=== PATIENT | male | born 1955 | race Caucasian/White ===

== ENCOUNTER 2018-07-30 08:28 | Outpatient (CLI) | payer BC, SELFPAY ==
[2018-07-30 08:59] LABS: Abs Immature Grans 0.01 k/cumm (0.0-0.09); Absolute Basophil Count 0.06 k/cumm (0.0-0.2); Absolute Eosinophil Count 0.26 k/cumm (0.0-0.7); Absolute Lymphocyte Count 1.47 k/cumm (1.2-3.4); Absolute Monocyte Count 0.54 k/cumm (0.11-0.7); Absolute Neutrophil Count 2.59 k/cumm (1.2-6.7); Basophils % 1.2; Eosinophils % 5.3; HCT 43.9 % (40.0-50.0); HGB 15.6 g/dL (13.5-17.5); Immature Grans % 0.2; Lymphocytes % 29.8; Mean Corp. HGB Concentration 35.5 g/dL (32.0-36.0); Mean Corpuscular Hemoglobin 31.3 pg (27.0-33.0); Mean Platelet Volume 9.3 fL (8.0-11.0); Neutrophils % 52.5; Platelet Count 171 x1000/uL (130-400); RBC 4.99 m/cumm (4.50-6.00); RBC Distribution Width 13.3 % (11.8-14.1); White Blood Cell Count 4.93 k/cumm (4.4-10.8)
[2018-07-30 10:24] LABS: ALT 64 U/L (12-78); AST 45 U/L (15-37); Alkaline Phosphatase 52 U/L (46-116); Anion Gap 7.9 mmol/L (3-11); BUN 17 mg/dL (7-18); Bilirubin, Total 0.6 mg/dL (0.2-1.0); CO2 29.1 mmol/L (21.0-32.0); CREATININE 0.94 mg/dL (0.70-1.30); Calcium 9.1 mg/dL (8.5-10.1); Chloride 104 mmol/L (98-107); Glucose 116 mg/dL (70-100); Potassium 4.6 mmol/L (3.5-5.1); Sodium 141 mmol/L (136-145); TSH 1.93 uIU/mL (0.358-3.74); Total Protein 7.4 g/dL (6.4-8.2)
== END 2018-07-30 08:48 ==
PROVIDERS: PCP Family Medicine; Visit Provider Chiropractor
DX: R53.83 Other fatigue (principal); R53.1 Weakness; M99.03 Segmental and somatic dysfunction of lumbar region
CPT/HCPCS: 36415; 80053; 84443; 85025

== ENCOUNTER 2018-12-28 10:14 | Outpatient (CLI) | payer BC, SELFPAY ==
[2018-12-28 12:40] LABS: Cholesterol 247 mg/dL (50-200); Glucose 110 mg/dL (70-100); HDL Cholesterol 42 mg/dL (40-60); LDL CHOLESTEROL 173 mg/dL (<100); Triglyceride 144 mg/dL (30-150)
[2018-12-29 15:04] LABS: PSA, Screening 17.2 ng/ml (0-4.5)
== END 2018-12-28 10:34 ==
PROVIDERS: PCP Family Medicine; Visit Provider Family Medicine
DX: Z00.00 Encounter for general adult medical examination without abnormal findings (principal); E74.39 Other disorders of intestinal carbohydrate absorption; Z12.5 Encounter for screening for malignant neoplasm of prostate; Z13.220 Encounter for screening for lipoid disorders
CPT/HCPCS: 36415; 80061; 82947; 83721; 84153

== ENCOUNTER 2019-05-06 03:11 | Outpatient (RCR) | payer BC, SELFPAY ==
[2019-05-02] VITALS (7 sets, daily range): BP systolic 123–150; BP diastolic 78–92; PULSE 54–65; RESP 16–18; TEMP 36.4–36.7; O2SAT 96–98
[2019-05-02] MEDS: diphenhydrAMINE 25 MG CAP PO (07:03)
[2019-05-02] MEDS: IMMUNE GLOBULIN 5 GM/50 ML BTL 1 GM IVPB (07:37)
[2019-05-02] MEDS: IMMUNE GLOBULIN 40 GM/400 ML BTL IVPB (07:38)
[2019-05-02] MEDS: Normal Saline Flush 10 ML SYR IVP (09:25)
[2019-05-03] MEDS: diphenhydrAMINE 25 MG CAP PO (07:22)
[2019-05-03] MEDS: IMMUNE GLOBULIN 5 GM/50 ML BTL 1 GM IVPB (07:23)
[2019-05-03] MEDS: IMMUNE GLOBULIN 40 GM/400 ML BTL IVPB (07:24)
[2019-05-03 07:30] VITALS: BP 132/83; PULSE 68; RESP 18; TEMP 36.6; O2SAT 95
[2019-05-03 07:45] VITALS: BP 134/85; PULSE 65; RESP 18; TEMP 36.3; O2SAT 98
[2019-05-03 08:05] VITALS: BP 137/88; PULSE 63; RESP 18; TEMP 36.1; O2SAT 98
[2019-05-03 08:42] VITALS: BP 137/83; PULSE 1; RESP 18; TEMP 36.4; O2SAT 98
[2019-05-03 09:21] VITALS: BP 135/65; PULSE 65; RESP 19; TEMP 36.5; O2SAT 99
[2019-05-03 09:23] VITALS: BP 144/92; PULSE 61; TEMP 36.3; O2SAT 98
[2019-05-03] MEDS: Normal Saline Flush 10 ML SYR IVP (09:27)
[2019-05-04 06:59] VITALS: BP 137/66; PULSE 74; RESP 18; TEMP 36.4; O2SAT 98
[2019-05-04] MEDS: diphenhydrAMINE 25 MG CAP PO (07:05)
[2019-05-04] MEDS: IMMUNE GLOBULIN 40 GM/400 ML BTL IVPB (07:14)
[2019-05-04] MEDS: IMMUNE GLOBULIN 5 GM/50 ML BTL 1 GM IVPB (07:14)
[2019-05-04] MEDS: Normal Saline Flush 10 ML SYR IVP (07:14)
[2019-05-04 07:30] VITALS: BP 126/70; PULSE 66; RESP 18; TEMP 36.6; O2SAT 96
[2019-05-04 07:50] VITALS: BP 129/81; PULSE 61; RESP 18; TEMP 36.3; O2SAT 98
[2019-05-04 08:00] VITALS: BP 124/78; PULSE 56; RESP 18; TEMP 36.5; O2SAT 98
[2019-05-04 08:42] VITALS: BP 134/84; PULSE 58; RESP 18; TEMP 36.5; O2SAT 98
[2019-05-04 09:08] VITALS: BP 143/88; PULSE 60; RESP 18; TEMP 36.4; O2SAT 98
[2019-05-05] MEDS: diphenhydrAMINE 25 MG CAP PO (07:01)
[2019-05-05 07:04] VITALS: BP 134/88; PULSE 84; RESP 18; TEMP 36.4; O2SAT 96
[2019-05-05] MEDS: IMMUNE GLOBULIN 5 GM/50 ML BTL 1 GM IVPB (07:10)
[2019-05-05] MEDS: IMMUNE GLOBULIN 40 GM/400 ML BTL IVPB (07:10)
[2019-05-05 07:18] VITALS: BP 134/85; PULSE 75; RESP 18; TEMP 36.8; O2SAT 95
[2019-05-05 07:35] VITALS: BP 125/74; PULSE 68; RESP 18; TEMP 36.5; O2SAT 95
[2019-05-05 07:55] VITALS: BP 135/82; PULSE 68; RESP 18; TEMP 36.8; O2SAT 98
[2019-05-05 08:27] VITALS: BP 131/76; PULSE 66; RESP 18; TEMP 36.2; O2SAT 98
[2019-05-05] MEDS: Normal Saline Flush 10 ML SYR IVP (09:04)
[2019-05-06 07:06] VITALS: BP 139/97; PULSE 82; RESP 18; TEMP 36.7; O2SAT 95
[2019-05-06] MEDS: diphenhydrAMINE 25 MG CAP PO (07:09)
[2019-05-06] MEDS: Normal Saline Flush 10 ML SYR IVP (07:09)
[2019-05-06] MEDS: IMMUNE GLOBULIN 5 GM/50 ML BTL 1 GM IVPB (07:22)
[2019-05-06] MEDS: IMMUNE GLOBULIN 40 GM/400 ML BTL IVPB (07:23)
[2019-05-06 07:27] VITALS: BP 145/87; PULSE 74; RESP 18; TEMP 36.3; O2SAT 96
[2019-05-06 07:42] VITALS: BP 150/80; PULSE 74; RESP 18; TEMP 36.7; O2SAT 96
[2019-05-06 07:55] VITALS: BP 146/87; PULSE 65; RESP 17; TEMP 36.5; O2SAT 98
[2019-05-06 08:35] VITALS: BP 148/88; PULSE 66; RESP 17; TEMP 36.5; O2SAT 98
[2019-05-06 09:20] VITALS: BP 155/92; PULSE 68; RESP 18; TEMP 36.2
== END 2019-05-14 23:59 | disposition home or self-care (01) ==
LOC: INF 03:11
PROVIDERS: PCP Family Medicine; Visit Provider Internal Medicine
DX: G72.49 Other inflammatory and immune myopathies, not elsewhere classified (principal)
CPT/HCPCS: 96365; 96366; J1459

== ENCOUNTER 2019-06-07 01:52 | Outpatient (RCR) | payer BC, SELFPAY ==
[2019-06-06] VITALS (7 sets, daily range): BP systolic 121–130; BP diastolic 78–87; PULSE 66–81; RESP 16–19; TEMP 36.1–36.5; O2SAT 96–99
[2019-06-06] MEDS: diphenhydrAMINE 25 MG CAP PO (07:09)
[2019-06-06] MEDS: methylPREDNISolone SUCC 125 MG VIAL 100 MG IVP (07:10)
[2019-06-06] MEDS: Acetaminophen 325 MG TAB 650 MG PO (07:10)
[2019-06-06] MEDS: IMMUNE GLOBULIN 5 GM/50 ML BTL 1 GM IVPB (07:32)
[2019-06-06] MEDS: IMMUNE GLOBULIN 40 GM/400 ML BTL IVPB (07:35)
[2019-06-06] MEDS: Normal Saline Flush 10 ML SYR IVP (07:43)
[2019-06-07] MEDS: methylPREDNISolone SUCC 125 MG VIAL 100 MG IVP (07:15)
[2019-06-07] MEDS: diphenhydrAMINE 25 MG CAP PO (07:16)
[2019-06-07] MEDS: Acetaminophen 325 MG TAB 650 MG PO (07:16)
[2019-06-07] MEDS: IMMUNE GLOBULIN 40 GM/400 ML BTL IVPB (07:18)
[2019-06-07] MEDS: IMMUNE GLOBULIN 5 GM/50 ML BTL 1 GM IVPB (07:18)
[2019-06-07 07:23] VITALS: BP 126/79; PULSE 78; RESP 18; TEMP 36.6; O2SAT 97
[2019-06-07 07:40] VITALS: BP 131/81; PULSE 83; RESP 16; TEMP 36.5; O2SAT 95
[2019-06-07 08:08] VITALS: BP 133/80; PULSE 81; RESP 19; TEMP 36.2; O2SAT 96
[2019-06-07 08:39] VITALS: BP 138/83; PULSE 79; RESP 18; TEMP 36.6; O2SAT 97
[2019-06-07 09:09] VITALS: BP 132/83; PULSE 75; RESP 19; TEMP 36.6; O2SAT 97
== END 2019-06-13 23:59 | disposition home or self-care (01) ==
LOC: INF 01:52
PROVIDERS: PCP Family Medicine; Visit Provider Internal Medicine
DX: G72.49 Other inflammatory and immune myopathies, not elsewhere classified (principal)
CPT/HCPCS: 96365; 96366; 96374; J1459; J2930

== ENCOUNTER 2019-08-31 09:28 | Outpatient (CLI) | payer BC, SELFPAY ==
--- NOTE | 2019-08-31 09:34 | DI.US_ITS ---
EXAM: US LOWER EXTREMITY VENOUS LT CLINICAL HISTORY: left leg pain, M79.662, left calf pain, ? DVT TECHNIQUE: Ultrasound performed using standard protocol. COMPARISON: LEFT EXTREMITY ULTRASOUND from 09/09/2011 FINDINGS: There is echogenic, partially occluding thrombus in the proximal femoral vein through the popliteal veins extending into the deep calf veins. The findings are consistent with old or subacute thrombus. Palpable abnormality in the medial calf corresponds to old-appearing thrombus within a superficial vein. IMPRESSION: Deep venous thrombosis and superficial venous thrombosis which is partially occluding and appears sub acute or old.
== END 2019-08-31 09:48 ==
PROVIDERS: PCP Family Medicine; Visit Provider Family Medicine
DX: M79.662 Pain in left lower leg (principal); I82.512 Chronic embolism and thrombosis of left femoral vein; I82.532 Chronic embolism and thrombosis of left popliteal vein; I82.812 Embolism and thrombosis of superficial veins of left lower extremity
CPT/HCPCS: 93971

== ENCOUNTER 2019-09-01 09:31 | Outpatient (CLI) | payer BC, SELFPAY ==
[2019-09-01 13:38] LABS: Anion Gap 10.5 mmol/L (3-11); BUN 22 mg/dL (7-18); CO2 26.5 mmol/L (21.0-32.0); CREATININE 0.89 mg/dL (0.70-1.30); Calcium 9.1 mg/dL (8.5-10.1); Chloride 102 mmol/L (98-107); Glucose 202 mg/dL (74-106); Potassium 4.6 mmol/L (3.5-5.1); Sodium 139 mmol/L (136-145)
[2019-09-02 08:49] LABS: ALT 53 U/L (16-63); AST 35 U/L (15-37)
== END 2019-09-01 09:51 ==
PROVIDERS: PCP Family Medicine; Visit Provider Family Medicine
DX: M79.662 Pain in left lower leg (principal); G72.89 Other specified myopathies
CPT/HCPCS: 36415; 80048; 84450; 84460

== ENCOUNTER 2019-09-05 00:56 | Outpatient (CLI) | payer BC, SELFPAY ==
--- NOTE | 2019-09-05 14:05 | DI.US_ITS ---
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 EF is 55-60% The left atrium is mildly dilated MIldly thickened mitral leaflets without mitral regurgitation Trace tricuspid regurgitation Mildly dilated ascending aorta and aortic root Wall motion Left Ventricle The left ventricle is top normal size. The left ventricular systolic function is normal. The left ilene tricular ejection fraction is within the normal range. There is top normal left ventricular wall thic kness. Regional wall motion is normal. The left ventricular diastolic function is normal. Left ventri cular filling pattern is normal for age. LVEF is 55-60%. Right Ventricle The right ventricle is normal size. The right ventricular systolic function is normal. Atria Left atrium is mildly dilated. The right atrium size is normal. Aortic Valve Aortic valve is trileaflet and mobile. The aortic valve is not well visualized. Aortic valve is calci fied. The Aortic valve is sclerotic. Aortic valve is thickened but has adequate excursion. There is n o aortic valvular stenosis. No aortic regurgitation is present. Mitral Valve Mitral valve leaflets are mildly thickened. There is no mitral valve regurgitation noted. Tricuspid Valve The tricuspid valve leaflets are mildly thickened , but open well. Trivial tricuspid regurgitation. Great Vessels Aortic root is dilated. The ascending aorta is mildly dilated. IVC is normal in size and collapses >5 0% with inspiration. Pericardium There is no pericardial effusion. 2D Dimensions IVSd 1.10 cm M: 0.6-1.2 LV EDV A2C 123.80 mL PWd 1.10 cm M: 0.6 - 1.2 LV EDV A4C 98.70 mL LVDd 5.75 cm M: 4.2 - 5.8 LA Volume Index A2C 32.36 mL/m2 LVDs 4.15 cm M: 2.5 - 4.0 LA Volume Index A4C 32.95 mL/m2 Aortic Root 3.90 cm M: 3.1 - 3.7 LA Volume Index Biplane 34.80 mL/m2 RA Area A4C 22.38 cm2 LA Area A4C 23.31 cm2 LVOT 2.05 cm (M/F) 1.5-2.5 LA Area A2C 21.68 cm2 Ascending Aorta 3.56 cm M: 2.6 - 3.4 EF AP4 47.82 % LVEF (Teich) 53.24 % EF AP2 56.54 % LVEF (Bartholomew's) 54.28 % M: 52 - 72 EF BP 54.28 % LV Volume 81.05 mL M: 62 - 150 LV Volume Index 34.93 mL/m2 M: 34 - 74 FS 27.80 % LV Diastology E/A Ratio 0.8 MED E' 0.06 (>0.07 m/s) LV E/e MED 8.00 (<14) LAT E' 0.07 (>0.1 m/s) LV E/e LAT 6.45 (<14) Aortic Valve LVOT Area 3.31 cm2 LVOT Vmax 0.96 m/s LVOT Mean Saji. 0.59 m/s LVOT Peak Gr. 3.7 mmHg LVOT Mean Gr. 1.7 mmHg AoV Area/ BSA (Vmax) 0.90 cm2/m2 LVOT VTI 0.200 m AoV Vmax 1.52 (0.5-1.3 m/s) ROBIN Mean Saji. Index 0.82 cm2/m2 AoV Mean Saji. 1.02 m/s AoV Peak Grad 9.2 mmHg AoV Mean Grad 4.8 (<5 mmHg) AoV VTI 0.268 (0.18-0.25 m) AoV Area VTI 2.52 (2.5-4.5 cm2) AoV Area/ BSA (VTI) 1.08 cm/m2 Mitral Valve MV E Max Saji. 0.48 (0.4-1.3 m/s) MV A Velocity 0.60 (0.4-1.3 m/s) E/A Ratio 0.77 MV Decel. Time 190.40 (160-240 msec) MV PHT 55.22 msec MVA PHT 3.95 cm2 Tricuspid Valve TR P. Velocity 2.53 m/s TV Regurg Vmax 2.53 m/s RAP Estimate 3.00 mmHg RVSP 28.60 mmHg TR P. Gradient 25.60 mmHg
== END 2019-09-05 01:16 ==
PROVIDERS: PCP Family Medicine; Visit Provider Family Medicine
DX: G72.89 Other specified myopathies (principal); R29.898 Other symptoms and signs involving the musculoskeletal system; I34.8 Other nonrheumatic mitral valve disorders; I36.1 Nonrheumatic tricuspid (valve) insufficiency
CPT/HCPCS: 93306

== ENCOUNTER 2019-10-04 02:33 | Outpatient (CLI) | payer BC, SELFPAY ==
--- NOTE | 2019-10-04 | PFT_ITS ---
PULMONARY FUNCTION TEST REPORT Patient - Jeison Cervantes DATE OF SERVICE October 03, 2019 REQUESTING PROVIDER Talon Constantino M.D. INTERPRETATION OF STUDY Spirometry shows no evidence of obstructive airways disease. No bronchodilator response. LUNG VOLUMES - Lung volumes show no evidence of restriction. DIFFUSION CAPACITY- Normal. AIRWAY RESISTANCE - Normal. IMPRESSION Normal pulmonary function study. Clinical correlation recommended. Stefani Kc M.D. KATHY/ T- 10/04/19
[2019-10-04] MEDS: Albuterol HFA 18 GM 200 PUFF INH IH (09:00)
[2019-10-04] MEDS: Inhaler, Assist Device 1 EACH MC (09:00)
== END 2019-10-04 02:53 ==
PROVIDERS: PCP Family Medicine; Visit Provider Family Medicine
DX: R06.02 Shortness of breath (principal); G72.89 Other specified myopathies
CPT/HCPCS: 94060; 94150; 94726; 94729

== ENCOUNTER 2019-10-17 09:36 | Outpatient (CLI) | payer BC, SELFPAY ==
[2019-10-17 11:40] LABS: Abs Immature Grans 0.02 k/cumm (0.0-0.09); Absolute Basophil Count 0.05 k/cumm (0.0-0.2); Absolute Eosinophil Count 0.16 k/cumm (0.0-0.7); Absolute Lymphocyte Count 1.92 k/cumm (1.2-3.4); Absolute Monocyte Count 0.86 k/cumm (0.11-0.7); Absolute Neutrophil Count 4.06 k/cumm (1.2-6.7); Basophils % 0.7; Eosinophils % 2.3; HGB 15.7 g/dL (13.5-17.5); Immature Grans % 0.3 %; Lymphocytes % 27.2; Mean Corp. HGB Concentration 33.4 g/dL (32.0-36.0); Mean Corpuscular Hemoglobin 29.5 pg (27.0-33.0); Mean Corpuscular Volume 88.3 fL (80-95); Mean Platelet Volume 9.4 fL (8.0-11.0); Monocytes % 12.2; Neutrophils % 57.3; Platelet Count 203 x1000/uL (130-400); RBC 5.32 m/cumm (4.50-6.00); RBC Distribution Width 14.1 % (11.8-14.1); White Blood Cell Count 7.07 k/cumm (4.4-10.8)
[2019-10-17 12:05] LABS: ALT 46 U/L (16-63); AST 29 U/L (15-37); Albumin 3.7 g/dL (3.4-5.0); Alkaline Phosphatase 40 U/L (46-116); Bilirubin, Direct 0.12 mg/dL (0.00-0.20); Bilirubin, Total 0.4 mg/dL (0.2-1.0); Creatine Kinase 472 U/L (39-308); Total Protein 6.9 g/dL (6.4-8.2)
== END 2019-10-17 09:56 ==
PROVIDERS: PCP Family Medicine; Visit Provider Family Medicine
DX: D64.9 Anemia, unspecified (principal); G72.89 Other specified myopathies
CPT/HCPCS: 36415; 80076; 82550; 85025

== ENCOUNTER 2019-12-08 01:08 | Outpatient (CLI) | payer BC, SELFPAY ==
--- NOTE | 2019-12-08 13:28 | DI.DEXA_ITS ---
EXAM: XR DEXA BONE DENSITY W/WO CHON CLINICAL HISTORY: NECROTIZING MYOPATHY, G72.89, REQUESTED BY RHEUMATOLOGY COMPARISON: No exams were available for comparison FINDINGS: Lateral Spine Image: Unremarkable. No compression deformities identified. Left hip: Total T-Score: 0.4 Total Z-Score: 0.9 T- and Z-scores: Within normal limits. Lumbar Spine: Total T-Score: 1.4 Total Z-Score: 2.2 T- and Z-scores: Within normal limits. IMPRESSION: No evidence of osteoporosis.
== END 2019-12-08 01:28 ==
PROVIDERS: PCP Family Medicine; Visit Provider Family Medicine
DX: G72.89 Other specified myopathies (principal)
CPT/HCPCS: 77080

== ENCOUNTER 2020-01-04 01:43 | Outpatient (CLI) | payer BC, SELFPAY ==
[2020-01-04 16:49] LABS: Abs Immature Grans 0.04 k/cumm (0.0-0.09); Absolute Monocyte Count 0.51 k/cumm (0.11-0.7); HCT 46.5 % (40.0-50.0); Immature Grans % 0.4 %; Lymphocytes % 3.5; Mean Corp. HGB Concentration 34.4 g/dL (32.0-36.0); Mean Corpuscular Hemoglobin 30.8 pg (27.0-33.0); Mean Corpuscular Volume 89.6 fL (80-95); Mean Platelet Volume 8.9 fL (8.0-11.0); Monocytes % 4.5; Neutrophils % 91.6; Platelet Count 144 x1000/uL (130-400); RBC 5.19 m/cumm (4.50-6.00); RBC Distribution Width 13.6 % (11.8-14.1)
[2020-01-04 16:50] LABS: Absolute Neutrophil Count 10.44 k/cumm (1.2-6.7)
[2020-01-04 17:59] LABS: ALT 100 U/L (16-63); AST 44 U/L (15-37); Albumin 3.5 g/dL (3.4-5.0); Alkaline Phosphatase 42 U/L (46-116); Anion Gap 8.9 mmol/L (3-11); BUN 24 mg/dL (7-18); Bilirubin, Total 0.5 mg/dL (0.2-1.0); CO2 29.1 mmol/L (21.0-32.0); CREATININE 1.13 mg/dL (0.70-1.30); Calculated LDL 141 mg/dL (<100); Chloride 100 mmol/L (98-107); Cholesterol 249 mg/dL (<200); Glucose 229 mg/dL (74-106); HDL Cholesterol 74 mg/dL (40-60); Potassium 4.2 mmol/L (3.5-5.1); Sodium 138 mmol/L (136-145); Total Protein 6.6 g/dL (6.4-8.2); Triglyceride 170 mg/dL (<150)
[2020-01-04 18:50] LABS: Creatine Kinase 712 U/L (39-308)
== END 2020-01-04 02:03 ==
PROVIDERS: PCP Family Medicine; Visit Provider Family Medicine
DX: E78.5 Hyperlipidemia, unspecified (principal); D64.9 Anemia, unspecified; M60.9 Myositis, unspecified; Z12.5 Encounter for screening for malignant neoplasm of prostate
CPT/HCPCS: 36415; 80053; 80061; 82550; 84153; 85025

== ENCOUNTER 2020-03-07 17:46 | Inpatient (IN) | payer BC, SELFPAY ==
[2020-03-07] VITALS (44 sets, daily range): BP systolic 76–113; BP diastolic 53–72; PULSE 92–141; RESP 2–35; TEMP 34–38.8; O2SAT 86–98
--- NOTE | 2020-03-07 17:50 | W.ED.GENAD ---
Discharge Plan Disposition Patient Disposition: [facility] INPATIENT Condition: Fair Discharge Details Chief Complaint: SOB Clinical Impression: Multifocal pneumonia, Chronic steroid use, Hypoxia Primary Care Provider: Talon Constantino ED Provider: Marry Levy Home Meds and New Rx's Prescriptions: No Action ibuprofen 200 MG capsule 400 mg PO daily prn RF: 0 therawork 1 applic Topical hs prn RF: 0 Xarelto 20 mg tablet 20 mg PO QPM Qty: 30 RF: 5 tamsulosin 0.4 mg capsule 0.4 mg PO DAILY Qty: 90 RF: 3 sofia leg cramp 1 tab PO HS PRN RF: 0 mycophenolate mofetil 500 mg tablet 1,000 mg PO BID RF: 0 methotrexate sodium 2.5 mg tablet 15 mg PO QWEEK RF: 0 folic acid 1 mg tablet 1 mg PO DAILY RF: 0 calcium carbonate [Calcium 600] 600 mg calcium (1,500 mg) tablet 1,200 mg PO DAILY RF: 0 cholecalciferol (vitamin D3) 10 mcg (400 unit) capsule 1,600 unit PO DAILY RF: 0 methylprednisolone 4 mg tablet 20 mg PO DAILY RF: 0 magnesium oxide 500 mg capsule 500 mg PO DAILY RF: 0 chaga 6 oz PO DAILY RF: 0 finasteride 5 mg tablet 5 mg PO DAILY Qty: 30 RF: 5 Medical Decision Making 1800 -- 64-year-old male with a history of autoimmune necrotizing myopathy, myositis, prediabetes chronically on steroids for the past 4 months presents with shortness of breath, fatigue and generalized weakness for the past 5 days. Temp on arrival 101.8. Heart rate 130s. Oxygen saturation 86% on room air. Patient appears significantly labored with diminished breath sounds at bases bilaterally, with crackles and worsening in left base. EKG on arrival notes a rate of 136, sinus with no acute ST ischemic changes. Differential diagnosis includes pneumonia, coronavirus, bronchitis, PE, arrhythmia, electrolyte abnormality, ACS. Will place an IV, bolus IV fluids, screening labs, portable chest x-ray followed by CT chest to rule out PE. We will also give a DuoNeb, IV Tylenol and fluids and reassess. 1900 -- Labs and imaging reviewed. White blood cell count 7. ABG appears more consistent with hypoxia and respiratory alkalosis likely due to his hyperventilation. Lactate 2.2. Troponin negative. Portable chest x-ray notes diffuse multifocal opacities consistent likely with pneumonia. As patient is immunosuppressed with steroids, CellCept and methotrexate, will start broad-spectrum antibiotics with vancomycin and Zosyn. Patient referred for CT which was negative for PE or pleural effusion but confirmed multifocal groundglass opacities. 1940 --patient feels better. Heart rate 110s. Now afebrile. O2 sat 93% on 2 L. Case discussed with hospitalist who accepts patient for admission. Medical Records Medical records reviewed: Yes I reviewed the patient's medical records. Imaging Data Radiologic Study: Radiologist's impression: XR Chest, 1 View Exam date and time: 03/07/2020 6:50 PM Age: 64 years old Clinical indication: Shortness of breath; Patient HX: Pui for covid-19 TECHNIQUE: Imaging protocol: XR of the chest Views: 1 view. COMPARISON: No relevant prior studies available. FINDINGS: Lungs: Multifocal patchy foci of opacification are seen scattered throughout the parenchyma of both lungs Pleural space: No pneumothorax or pleural effusion detected. Heart/Mediastinum: Heart size is normal and vessel margins are sharply defined where visible. Bones/joints: Unremarkable. IMPRESSION: Multifocal bilateral patchy pulmonary infiltrates as above. CT Angiography Chest With Contrast Exam date and time: 03/07/2020 7:09 PM Age: 64 years old Clinical indication: Cough and fever and shortness of breath; Patient HX: 3 known pulmonary nodules diagnosed 1 1/2weeks ago, 37lb unexplained weight loss over last 3 months, HX +dvt lt leg, SOB x1 week TECHNIQUE: Imaging protocol: Computed tomographic angiography of the chest with intravenous contrast. 3D rendering: MIP and/or 3D reconstructed images were created by the technologist. Radiation optimization: All CT scans at this facility use at least one of these dose optimization techniques: automated exposure control; mA and/or kV adjustment per patient size (includes targeted exams where dose is matched to clinical indication); or iterative reconstruction. Contrast material: [id number]; Contrast volume: 85 ml; Contrast route: INTRAVENOUS (IV); COMPARISON: CR XR PORTABLE CHEST AP 03/07/2020 6:45 PM FINDINGS: Pulmonary arteries: There is adequate opacification of blood within the main pulmonary outflow tract, right and left pulmonary arteries and major lobar and segmental branches to both lungs with no pulmonary embolism detected. Aorta: Scant atherosclerotic calcifications are seen within a nonaneurysmal thoracic aortic arch and there is no evidence of aortic dissection. Lungs: Patchy nonsegmental ground-glass opacities are scattered throughout the mid and upper lung zones bilaterally with a few more discrete foci of denser consolidation, a few which contain air bronchograms, also seen along the posterior margins of both lower lobes. No discrete pulmonary nodules are detected. Pleural space: There is no pneumothorax or pleural effusion seen. Heart: Heart size is normal and there is no evidence of pericardial effusion or right cardiac strain. Lymph nodes: Subcarinal adenopathy is seen with subcarinal lymph nodes measuring up to 17 mm in size. A few prominent hilar lymph nodes are also evident bilaterally. Bones/joints: Multilevel facet arthropathy is seen at thoracic levels with no acute fractures detected. Soft tissues: No axillary mass or adenopathy is seen. IMPRESSION: 1. No pulmonary artery embolism identified. 2. Multifocal ground-glass opacities and patchy parenchymal densities are seen throughout both lungs and an infectious etiology is favored. Viral pneumonia could have a similar appearance and mediastinal and bilateral hilar adenopathy are also present. Lab Data Lab results reviewed: Yes I reviewed the patient's lab results. Labs: 03/07/20 18:42 Blood Blood Culture - Pending 03/07/20 18:10 Blood Blood Culture - Pending Laboratory Tests Range/Units 03/07/20 03/07/20 03/07/20 18:10 18:10 18:10 WBC (4.4-10.8) k/cumm 7.28 RBC (4.50-6.00) m/cumm 3.95 L Hgb (13.5-17.5) g/dL 12.6 L Hct (40.0-50.0) % 36.5 L MCV (80-95) fL 92.4 MCH (27.0-33.0) pg 31.9 MCHC (32.0-36.0) g/dL 34.5 RDW (11.8-14.1) % 16.6 H Plt Count (130-400) x1000/uL 230 MPV (8.0-11.0) fL 8.7 Immature Gran % % 0.8 Neutrophils % 87.8 Lymphocytes % 6.2 Monocytes % 4.1 Eosinophils % 0.8 Basophils % 0.3 Absolute Neutrophils (1.2-6.7) k/cumm 6.39 Absolute Lymphocytes (1.2-3.4) k/cumm 0.45 L Absolute Monocytes (0.11-0.7) k/cumm 0.30 Absolute Eosinophils (0.0-0.7) k/cumm 0.06 Absolute Basophils (0.0-0.2) k/cumm 0.02 PT (9.3-11.0) sec 11.3 H INR (0.9-1.1) 1.1 APTT (21.0-31.4) sec 35.0 H ABG Sample Site ABG pH (7.35-7.45) ABG pCO2 (34-47) mmHg ABG pO2 (83-108) mmHg ABG HCO3 (22-28) mmol/L ABG Total CO2 (22-29) mmol/L ABG O2 Saturation (94-98) % ABG Base Excess (-3-3) mmol/L Oxygen Liter Flow L Sodium (136-145) mmol/L 134 L Potassium (3.5-5.1) mmol/L 4.1 Chloride (98-107) mmol/L 99 Carbon Dioxide (21.0-32.0) mmol/L 25.0 Anion Gap (3-11) mmol/L 10.0 BUN (7-18) mg/dL 16 Creatinine (0.70-1.30) mg/dL 0.89 Estimated GFR/1.73 m2 (mL/min/1.73m2) >= 60.00 Glucose (74-106) mg/dL 157 H Lactate (0.6-1.4) mmol/L Calcium (8.5-10.1) mg/dL 9.4 Magnesium (1.8-2.4) mg/dL 1.8 Total Bilirubin (0.2-1.0) mg/dL 1.1 H AST (15-37) U/L 54 H ALT (16-63) U/L 58 Alkaline Phosphatase (46-116) U/L 61 Troponin I (<0.06) ng/mL < 0.05 Total Protein (6.4-8.2) g/dL 6.8 Albumin (3.4-5.0) g/dL 2.5 L Range/Units 03/07/20 03/07/20 18:10 18:45 WBC (4.4-10.8) k/cumm RBC (4.50-6.00) m/cumm Hgb (13.5-17.5) g/dL Hct (40.0-50.0) % MCV (80-95) fL MCH (27.0-33.0) pg MCHC (32.0-36.0) g/dL RDW (11.8-14.1) % Plt Count (130-400) x1000/uL MPV (8.0-11.0) fL Immature Gran % % Neutrophils % Lymphocytes % Monocytes % Eosinophils % Basophils % Absolute Neutrophils (1.2-6.7) k/cumm Absolute Lymphocytes (1.2-3.4) k/cumm Absolute Monocytes (0.11-0.7) k/cumm Absolute Eosinophils (0.0-0.7) k/cumm Absolute Basophils (0.0-0.2) k/cumm PT (9.3-11.0) sec INR (0.9-1.1) APTT (21.0-31.4) sec ABG Sample Site Left radial ABG pH (7.35-7.45) 7.53 H ABG pCO2 (34-47) mmHg 28 L ABG pO2 (83-108) mmHg 63 L ABG HCO3 (22-28) mmol/L 23 ABG Total CO2 (22-29) mmol/L 21 L ABG O2 Saturation (94-98) % 94 ABG Base Excess (-3-3) mmol/L 0.5 Oxygen Liter Flow L 2.5 Sodium (136-145) mmol/L Potassium (3.5-5.1) mmol/L Chloride (98-107) mmol/L Carbon Dioxide (21.0-32.0) mmol/L Anion Gap (3-11) mmol/L BUN (7-18) mg/dL Creatinine (0.70-1.30) mg/dL Estimated GFR/1.73 m2 (mL/min/1.73m2) Glucose (74-106) mg/dL Lactate (0.6-1.4) mmol/L 2.2 H* Calcium (8.5-10.1) mg/dL Magnesium (1.8-2.4) mg/dL Total Bilirubin (0.2-1.0) mg/dL AST (15-37) U/L ALT (16-63) U/L Alkaline Phosphatase (46-116) U/L Troponin I (<0.06) ng/mL Total Protein (6.4-8.2) g/dL Albumin (3.4-5.0) g/dL ECG Data Attestation: I personally reviewed and interpreted this ECG (s) as follows: Interpretation: Rate of 136, sinus, no acute ST elevation or depression. QTc 523. QRS 110. HPI General Mode of arrival: ambulatory. Date/Time Provider Initiated Documentation: 03/07/20 17:48. Limitations to Documentation: no limitations. Information obtained by: patient. HPI Narrative: Patient is a 64-year-old male with a history of autoimmune necrotizing myopathy, myositis, prediabetes who presents for shortness of breath, generalized fatigue and weakness for the past 5 days. Patient states he felt body aches and chills but has not taken his temperature. Patient denies any chest pain, cough, abdominal pain, vomiting or diarrhea. Patient states he has been on steroids which have been slowly tapering off for the past 4 months for his myositis. He is also taking methotrexate for his myositis. He also admits to decreased appetite over the last several days. Related Data Home Medications Medication Instructions Recorded Confirmed ibuprofen 400 mg PO daily prn tab-cap 11/26/16 03/07/20 Therawork 1 applic TOPICAL hs prn 12/25/17 03/07/20 rivaroxaban 20 mg tablet 20 mg PO QPM #30 tab 09/01/19 03/07/20 tamsulosin 0.4 mg capsule 0.4 mg PO DAILY #90 cap 10/18/19 03/07/20 calcium carbonate 600 mg calcium 1,200 mg PO DAILY tab 01/03/20 03/07/20 (1,500 mg) tablet chaga 6 oz PO DAILY 01/03/20 03/07/20 cholecalciferol (vitamin D3) 10 1,600 unit PO DAILY cap 01/03/20 03/07/20 mcg (400 unit) capsule folic acid 1 mg tablet 1 mg PO DAILY 01/03/20 03/07/20 sofia leg cramp 1 tab PO HS PRN 01/03/20 03/07/20 magnesium oxide 500 mg capsule 500 mg PO DAILY 01/03/20 03/07/20 methotrexate sodium 2.5 mg tablet 15 mg PO QWEEK tab 01/03/20 03/07/20 methylprednisolone 4 mg tablet 20 mg PO DAILY tab 01/03/20 03/07/20 mycophenolate mofetil 500 mg tablet 1,000 mg PO BID tab 01/03/20 03/07/20 finasteride 5 mg tablet 5 mg PO DAILY #30 tab 01/30/20 03/07/20 Previous Rx's Medication Instructions Recorded rivaroxaban 20 mg tablet 20 mg PO QPM #30 tab 09/01/19 tamsulosin 0.4 mg capsule 0.4 mg PO DAILY #90 cap 10/18/19 finasteride 5 mg tablet 5 mg PO DAILY #30 tab 01/30/20 Allergies Allergy/AdvReac Type Severity Reaction Status Date / Time cat dander Allergy Unverified 03/07/20 18:22 pollen extracts Allergy Unverified 03/07/20 18:21 Review of Systems All systems reviewed & are unremarkable except as noted in HPI and below Constitutional Constitutional: Reports as per HPI, Denies chills, Reports fatigue, Denies fever(s) and Reports weakness Eyes Eyes: Denies blurry vision ENT Ears, Nose, Mouth, and Throat: Denies dizziness, Denies sore throat and Denies throat swelling Cardiovascular Cardiovascular: Denies chest pain and Reports dyspnea Respiratory Respiratory: Denies cough and Reports dyspnea Gastrointestinal Gastrointestinal: Denies abdominal pain, Denies diarrhea and Denies vomiting Genitourinary Genitourinary: Denies hematuria and Denies dysuria Musculoskeletal Musculoskeletal: Denies back pain and Denies numbness Integumentary/Breasts Skin/Breast: Denies lesions and Denies rash Neurologic Neurologic: Denies dizziness, Denies localized weakness, Denies numbness and Reports weakness Endocrine Endocrine: Reports fatigue Allergic/Immunologic Allergic/Immunologic: Denies throat swelling [facility] Medical History (Updated 03/07/20 @ 19:57 by Marry Levy DO) Autoimmune necrotizing myopathy (Acute ~01/30/20) [facility] [place]ign prostatic hyperplasia (Acute 12/23/16) with elevated PSA TRUS biopsies negative X 2 Myositis (Acute ~11/25/18) 11/25/18 [facility] [place] Prediabetes (Acute 12/23/16) Spinal stenosis of lumbar region with neurogenic claudication (Acute ~01/30/20) [facility] [place] Venous insufficiency of left leg (Acute 12/23/16) Family History (Updated 01/03/20 @ 09:05 by Tyson Mendiola) Father , age 71 Pancreatic cancer Mother , age 86 No problems noted. Sister No problems noted. Maternal Grandfather , 94 Heart disease Paternal Grandfather , 54 Leukemia Maternal Grandmother , 101 No problems noted. Paternal Grandmother , 93 No problems noted. Son No problems noted. Son No problems noted. Daughter No problems noted. Social History (Updated 01/03/20 @ 09:04 by Tyson Mendiola) Smoking/Tobacco Use Status: Former Tobacco Use Quit Date: 10/14/16 Quit status: quit date established Second Hand Exposure: Yes Alcohol Intake: current Alcohol Intake frequency: 0-2 drinks per day Alcohol type: beer Drug use: Never Substance use type: does not use Caregiver/Support person: No Household members: spouse Housing: house Communication Needs: None Do you need help understanding health information?: Never Pets and animals: No Sexually active: Yes Do you think of yourself as: straight/heterosexual Current gender identity: male What is your relationship status?: How often do you talk on the phone with friends or family?: three or more times per week How often do you get together with friends or relatives?: three or more times per week How often do you attend mu-ism or uatsdin services?: decline to answer Do you belong to any clubs or organized social groups?: no Panel score (0-1 are the most socially isolated patients): 2 What type of physical activity do you participate in: none Duration: < 15 minutes/day Frequency: 1-2 times per week Harmony/Yarsani: Yazidi Special harmony needs: No Seatbelt use: always Helmet use: No Drive intox or ride w/intox corporate driver: No Exam Const General: in distress respiratory and ill appearing chronically Orientation: alert, awake and oriented x3 HENMT Head: normal to inspection Face and sinus: normal facial exam Eyes General: appearance normal, both eyes and all related structures EOM: EOM intact bilaterally Neck Neck: normal visual inspection and No submandibular swelling Lymphatic: no lymphadenopathy noted Chest Chest: normal inspection of the chest and no tenderness Resp Effort & Inspection: normal respiratory effort and able to speak in complete sentences Auscultation: crackles on the left at the base and diminished lung sounds bilaterally in the lower lung love Cardio Rate: tachycardic Rhythm: regular rhythm GI Inspection: normal to inspection Palpation: soft, not firm, not rigid and nontender Auscultation: normal bowel sounds Skin General skin exam: no rashes or lesions noted Neuro General: patient alert, patient awake and patient oriented x3 Cognition: normal cognition Speech: speech normal Motor: muscle tone normal throughout Sensory Exam: no sensory deficits noted Extrem General: normal to inspection, full ROM, capillary refill normal, no calf tenderness bilaterally and no edema Psych Appearance: grossly normal Mental Status: mental status grossly normal Speech and Movement: speech and movement normal Affect: normal affect
[2020-03-07] MEDS: ACETAMINOPHEN 1,000 MG/100 ML BTL 400 MG IVPB (18:10)
[2020-03-07] MEDS: Albuterol/Ipratropium 3 ML UPD VIAL UPD (18:23)
[2020-03-07 18:38] LABS: Abs Immature Grans 0.06 k/cumm (0.0-0.09); Absolute Basophil Count 0.02 k/cumm (0.0-0.2); Absolute Eosinophil Count 0.06 k/cumm (0.0-0.7); Absolute Lymphocyte Count 0.45 k/cumm (1.2-3.4); Absolute Neutrophil Count 6.39 k/cumm (1.2-6.7); Basophils % 0.3; Eosinophils % 0.8; HCT 36.5 % (40.0-50.0); HGB 12.6 g/dL (13.5-17.5); Immature Grans % 0.8 %; Lymphocytes % 6.2; Mean Corp. HGB Concentration 34.5 g/dL (32.0-36.0); Mean Corpuscular Hemoglobin 31.9 pg (27.0-33.0); Mean Corpuscular Volume 92.4 fL (80-95); Mean Platelet Volume 8.7 fL (8.0-11.0); Monocytes % 4.1; Neutrophils % 87.8; Platelet Count 230 x1000/uL (130-400); RBC 3.95 m/cumm (4.50-6.00); RBC Distribution Width 16.6 % (11.8-14.1); White Blood Cell Count 7.28 k/cumm (4.4-10.8)
[2020-03-07 18:39] LABS: Lactate 2.2 mmol/L (0.6-1.4)
[2020-03-07] MEDS: Normal Saline 1,000 ML 1000 ML IV (18:45)
[2020-03-07 18:50] LABS: BE 0.5 mmol/L (-3-3); HCO3 23 mmol/L (22-28); pCO2 28 mmHg (34-47); pH 7.53 (7.35-7.45); pO2 63 mmHg (83-108); sO2 94 % (94-98); tCO2 21 mmol/L (22-29)
[2020-03-07 18:53] LABS: FIO2L 2.5 L; Site Left Radial
[2020-03-07 18:54] LABS: INR 1.1 (0.9-1.1); Prothrombin Time 11.3 sec (9.3-11.0)
--- NOTE | 2020-03-07 18:55 | DI.RAD_ITS ---
EXAM: XR PORTABLE CHEST AP CLINICAL HISTORY: fever, sob, r/o acute disease TECHNIQUE: COMPARISON: No exams were available for comparison FINDINGS: Heart is not enlarged. There are bilateral multi focal predominantly perihilar pulmonary patchy infi ltrates, the findings are consistent with multifocal or diffuse pneumonia. Other etiologies not excl uded. No gross pleural effusion identified on this frontal film. IMPRESSION: Probable bilateral patchy pneumonia. Appropriate follow-up studies requested.
[2020-03-07 18:57] LABS: ALT 58 U/L (16-63); AST 54 U/L (15-37); Albumin 2.5 g/dL (3.4-5.0); Alkaline Phosphatase 61 U/L (46-116); BUN 16 mg/dL (7-18); Bilirubin, Total 1.1 mg/dL (0.2-1.0); CREATININE 0.89 mg/dL (0.70-1.30); Calcium 9.4 mg/dL (8.5-10.1); Chloride 99 mmol/L (98-107); Glucose 157 mg/dL (74-106); Magnesium 1.8 mg/dL (1.8-2.4); Potassium 4.1 mmol/L (3.5-5.1); Sodium 134 mmol/L (136-145); Total Protein 6.8 g/dL (6.4-8.2); Troponin I < 0.05 ng/mL (<0.06)
--- NOTE | 2020-03-07 19:06 | DI.VRAD_ITS ---
PROCEDURE INFORMATION: Exam: XR Chest, 1 View Exam date and time: 03/07/2020 6:50 PM Age: 64 years old Clinical indication: Shortness of breath; Patient HX: Pui for covid-19 TECHNIQUE: Imaging protocol: XR of the chest Views: 1 view. COMPARISON: No relevant prior studies available. FINDINGS: Lungs: Multifocal patchy foci of opacification are seen scattered throughout the parenchyma of both lungs Pleural space: No pneumothorax or pleural effusion detected. Heart/Mediastinum: Heart size is normal and vessel margins are sharply defined where visible. Bones/joints: Unremarkable. IMPRESSION: Multifocal bilateral patchy pulmonary infiltrates as above. Dictated and Authenticated by: Pavan Moore MD. Ordering:FRANCISCO Tuttle MD
[2020-03-07] MEDS: Normal Saline Flush 10 ML SYR IVP (19:20)
--- NOTE | 2020-03-07 19:24 | DI.CT_ITS ---
EXAM: CT CHEST PE CTA CLINICAL HISTORY: cough, fever, sob, r/o acute pneumonia/pe/chf TECHNIQUE: COMPARISON: No exams were available for comparison FINDINGS: CT angiography of the chest was performed with intravenous infusion 85 cc Omnipaque 350. Images obtained through the upper abdomen show unremarkable appearance of visualized portions of live r, spleen, pancreas, adrenals, and kidneys. Gallbladder and bile ducts are CT There is no evidence of pulmonary embolic disease. Thoracic aorta upper abdominal aorta, and major v isualized branch vessels appear intact. There is mild prominence hilar central mediastinal lymph nod es. There are diffuse predominantly ground-glass patchy opacities, some crazy paving appearance is noted with cervical prominence particularly in the upper lobes. Areas of more focal consolidation are also seen, predominantly peripherally in the lower lobes. Findings as described are nonspecific and may represent pneumonitis of a variety of causes, including viral pneumonia. Please correlate clinically . Tracheobronchial tree appears intact. IMPRESSION: Bilateral pulmonary opacities as described above with ground-glass, consolidative, and ?crazy paving? features. Findings are consistent with pneumonia of uncertain cause, including viral etiologies.
[2020-03-07] MEDS: Normal Saline - Diluent 50 ML VIAL IV (19:26)
[2020-03-07] MEDS: Omnipaque 350 MG/ML 100 ML BTL IJ (19:28)
[2020-03-07] MEDS: PIPERACILLIN/TAZO 3.375 GM in Normal Saline 50 ML IVPB (19:50)
--- NOTE | 2020-03-07 19:52 | DI.VRAD_ITS ---
PROCEDURE INFORMATION: Exam: CT Angiography Chest With Contrast Exam date and time: 03/07/2020 7:09 PM Age: 64 years old Clinical indication: Cough and fever and shortness of breath; Patient HX: 3 known pulmonary nodules diagnosed 1 1/2weeks ago, 37lb unexplained weight loss over last 3 months, HX +dvt lt leg, SOB x1 week TECHNIQUE: Imaging protocol: Computed tomographic angiography of the chest with intravenous contrast. 3D rendering: MIP and/or 3D reconstructed images were created by the technologist. Radiation optimization: All CT scans at this facility use at least one of these dose optimization techniques: automated exposure control; mA and/or kV adjustment per patient size (includes targeted exams where dose is matched to clinical indication); or iterative reconstruction. Contrast material: [id number]; Contrast volume: 85 ml; Contrast route: INTRAVENOUS (IV); COMPARISON: CR XR PORTABLE CHEST AP 03/07/2020 6:45 PM FINDINGS: Pulmonary arteries: There is adequate opacification of blood within the main pulmonary outflow tract, right and left pulmonary arteries and major lobar and segmental branches to both lungs with no pulmonary embolism detected. Aorta: Scant atherosclerotic calcifications are seen within a nonaneurysmal thoracic aortic arch and there is no evidence of aortic dissection. Lungs: Patchy nonsegmental ground-glass opacities are scattered throughout the mid and upper lung zones bilaterally with a few more discrete foci of denser consolidation, a few which contain air bronchograms, also seen along the posterior margins of both lower lobes. No discrete pulmonary nodules are detected. Pleural space: There is no pneumothorax or pleural effusion seen. Heart: Heart size is normal and there is no evidence of pericardial effusion or right cardiac strain. Lymph nodes: Subcarinal adenopathy is seen with subcarinal lymph nodes measuring up to 17 mm in size. A few prominent hilar lymph nodes are also evident bilaterally. Bones/joints: Multilevel facet arthropathy is seen at thoracic levels with no acute fractures detected. Soft tissues: No axillary mass or adenopathy is seen. IMPRESSION: 1. No pulmonary artery embolism identified. 2. Multifocal ground-glass opacities and patchy parenchymal densities are seen throughout both lungs and an infectious etiology is favored. Viral pneumonia could have a similar appearance and mediastinal and bilateral hilar adenopathy are also present. THIS REPORT CONTAINS FINDINGS THAT MAY BE CRITICAL TO PATIENT CARE. The findings were verbally communicated via telephone conference with merary betancur at 7:51 PM EDT on 03/07/2020. The findings were acknowledged and understood. Dictated and Authenticated by: Pavan Moore MD. Ordering:FRANCISCO Tuttle MD
--- NOTE | 2020-03-07 20:29 | W.PM.HP.N ---
Date of service: 03/07/20 Time of Service: 20:31 Assessment and Plan Assessment and plan (1) Pneumonia: Status: Acute Assessment and plan: Pneumonia in immunocompromised host, unclear if bacterial, viral or atypical. CT findings raise suspicion for COVID. Will continue empiric antibiotics (will add Levaquin to cover atypicals), supplemental O2 and would use stress steroids. Usual meds as is otherwise. Reviewed ADs, requests Full Code. History of Present Illness History of Present Illness Chief Complaint: SOB Narrative: 64 male with h/o unspecified myopathy, on Celcept, MTX and steroid taper. Here with several days of SOB, SINGH, nausea, and myalgias. In ER initially febrile, tachycardic and hypoxic, with w/u of note for normal white count (but with absolute lymphopenia), and CT showing multifocal ground glass and patchy opacities. Cxx obtained and patient started on Vanco and Zosyn. Given updraft w/o effect, given 2 L NS and on O2 3L. States he now feels substantially improved. Stays at home but apparently has had several small children visiting recently. No similar illness reported at home. Review of Systems All systems reviewed & are unremarkable except as noted in HPI and below [facility] Medical History Autoimmune necrotizing myopathy (Acute ~01/30/20) [facility] Benign prostatic hyperplasia (Acute 12/23/16) with elevated PSA TRUS biopsies negative X 2 Myositis (Acute ~11/25/18) 11/25/18 [facility] Prediabetes (Acute 12/23/16) Spinal stenosis of lumbar region with neurogenic claudication (Acute ~01/30/20) [facility] Venous insufficiency of left leg (Acute 12/23/16) Family History Father , age 71 Pancreatic cancer Mother , age 86 No problems noted. Sister No problems noted. Maternal Grandfather , 94 Heart disease Paternal Grandfather , 54 Leukemia Maternal Grandmother , 101 No problems noted. Paternal Grandmother , 93 No problems noted. Son No problems noted. Son No problems noted. Daughter No problems noted. Social History Smoking/Tobacco Use Status: Former Tobacco Use Quit Date: 10/14/16 Quit status: quit date established Second Hand Exposure: Yes Alcohol Intake: current Alcohol Intake frequency: 0-2 drinks per day Alcohol type: beer Drug use: Never Substance use type: does not use Caregiver/Support person: No Household members: spouse Housing: house Communication Needs: None Do you need help understanding health information?: Never Pets and animals: No Sexually active: Yes Do you think of yourself as: straight/heterosexual Current gender identity: male What is your relationship status?: How often do you talk on the phone with friends or family?: three or more times per week How often do you get together with friends or relatives?: three or more times per week How often do you attend scientology or buddhist services?: decline to answer Do you belong to any clubs or organized social groups?: no Panel score (0-1 are the most socially isolated patients): 2 What type of physical activity do you participate in: none Duration: < 15 minutes/day Frequency: 1-2 times per week Harmony/Confucianist: Episcopalian Special harmony needs: No Seatbelt use: always Helmet use: No Drive intox or ride w/intox uke driver: No Meds Home Medications and Allergies Home Medications Medication Instructions Recorded Confirmed Type ibuprofen 400 mg PO daily prn tab-cap 11/26/16 03/07/20 History Therawork 1 applic TOPICAL hs prn 12/25/17 03/07/20 History rivaroxaban 20 mg tablet 20 mg PO QPM #30 tab 09/01/19 03/07/20 Rx tamsulosin 0.4 mg capsule 0.4 mg PO DAILY #90 cap 10/18/19 03/07/20 Rx calcium carbonate 600 mg calcium 1,200 mg PO DAILY tab 01/03/20 03/07/20 History (1,500 mg) tablet chaga 6 oz PO DAILY 01/03/20 03/07/20 History cholecalciferol (vitamin D3) 10 1,600 unit PO DAILY cap 01/03/20 03/07/20 History mcg (400 unit) capsule folic acid 1 mg tablet 1 mg PO DAILY 01/03/20 03/07/20 History sofia leg cramp 1 tab PO HS PRN 01/03/20 03/07/20 History magnesium oxide 500 mg capsule 500 mg PO DAILY 01/03/20 03/07/20 History methotrexate sodium 2.5 mg tablet 15 mg PO QWEEK tab 01/03/20 03/07/20 History methylprednisolone 4 mg tablet 20 mg PO DAILY tab 01/03/20 03/07/20 History mycophenolate mofetil 500 mg tablet 1,000 mg PO BID tab 01/03/20 03/07/20 History finasteride 5 mg tablet 5 mg PO DAILY #30 tab 01/30/20 03/07/20 Rx Allergies Allergy/AdvReac Type Severity Reaction Status Date / Time cat dander Allergy Unverified 03/07/20 18:22 pollen extracts Allergy Unverified 03/07/20 18:21 Exam Narrative Exam Narrative: 103/63, 114, 36.6 (38.8 max), 34, 90% 4L. HEENT atraumatic; nneck supple; lungs fine rales lower and mid lung love; heart tachy and regular w/o MRG; abdomen soft and NT; extremities w/o edema; neuro Ox3, moves all 4s. Results Labs Result diagrams: 03/07/20 18:10 03/07/20 18:10 Labs: Laboratory Results - last 24 hr 03/07/20 03/07/20 03/07/20 18:10 18:10 18:10 WBC 7.28 RBC 3.95 L Hgb 12.6 L Hct 36.5 L MCV 92.4 MCH 31.9 MCHC 34.5 RDW 16.6 H Plt Count 230 MPV 8.7 Immature Gran % 0.8 Neutrophils % 87.8 Lymphocytes % 6.2 Monocytes % 4.1 Eosinophils % 0.8 Basophils % 0.3 Absolute Neutrophils 6.39 Absolute Lymphocytes 0.45 L Absolute Monocytes 0.30 Absolute Eosinophils 0.06 Absolute Basophils 0.02 PT 11.3 H INR 1.1 APTT 35.0 H ABG Sample Site ABG pH ABG pCO2 ABG pO2 ABG HCO3 ABG Total CO2 ABG O2 Saturation ABG Base Excess Oxygen Liter Flow Sodium 134 L Potassium 4.1 Chloride 99 Carbon Dioxide 25.0 Anion Gap 10.0 BUN 16 Creatinine 0.89 Estimated GFR/1.73 m2 >= 60.00 Glucose 157 H Lactate Calcium 9.4 Magnesium 1.8 Total Bilirubin 1.1 H AST 54 H ALT 58 Alkaline Phosphatase 61 Troponin I < 0.05 Total Protein 6.8 Albumin 2.5 L 03/07/20 03/07/20 18:10 18:45 WBC RBC Hgb Hct MCV MCH MCHC RDW Plt Count MPV Immature Gran % Neutrophils % Lymphocytes % Monocytes % Eosinophils % Basophils % Absolute Neutrophils Absolute Lymphocytes Absolute Monocytes Absolute Eosinophils Absolute Basophils PT INR APTT ABG Sample Site Left radial ABG pH 7.53 H ABG pCO2 28 L ABG pO2 63 L ABG HCO3 23 ABG Total CO2 21 L ABG O2 Saturation 94 ABG Base Excess 0.5 Oxygen Liter Flow 2.5 Sodium Potassium Chloride Carbon Dioxide Anion Gap BUN Creatinine Estimated GFR/1.73 m2 Glucose Lactate 2.2 H* Calcium Magnesium Total Bilirubin AST ALT Alkaline Phosphatase Troponin I Total Protein Albumin Last Vital Signs Temp 36.6 C 03/07/20 19:37 Pulse 114 H 03/07/20 19:37 Resp 34 H 03/07/20 19:37 BP 103/63 03/07/20 19:37 Pulse Ox 93 L 03/07/20 19:37 COVID-19 Screening In the past 14 days, have you traveled outside of [place]?: NO Had IN PERSON contact w/suspected or confirmed C-19 person: No
[2020-03-07] MEDS: VANCOMYCIN 1,500 MG in Normal Saline 250 ML 166.6666 MG IVPB ×2 (20:35→23:06)
[2020-03-07] MEDS: Normal Saline 1,000 ML 125 ML IV (21:22)
[2020-03-07] MEDS: methylPREDNISolone SUCC 40 MG VIAL IVP (21:37)
[2020-03-07 22:00] LABS: C-Reactive Protein 22.64 mg/dL (0.0-0.3); LDH 548 U/L (85-227)
[2020-03-07 22:23] LABS: D-Dimer 1806 ng/mlFEU (<500); Procalcitonin 0.3 ng/mL
--- NOTE | 2020-03-07 22:25 | NUR.NOTE ---
pt was placed in the prone position on the proning pillow at 2130Nursing Note:
[2020-03-07 22:47] LABS: Ferritin 1832 ng/mL (26-388)
[2020-03-08] VITALS (123 sets, daily range): BP systolic 94–115; BP diastolic 45–86; PULSE 70–122; RESP 10–40; TEMP 34–36.4; O2SAT 86–99
--- NOTE | 2020-03-08 03:44 | NUR.NOTE ---
when pt arrived , he was in prone position with prone pillows in place. turned every two hrs to either side with sllight assist. sleeping in naps.Nursing Note:
[2020-03-08 06:58] LABS: Abs Immature Grans 0.04 k/cumm (0.0-0.09); Absolute Basophil Count 0.01 k/cumm (0.0-0.2); Absolute Lymphocyte Count 0.21 k/cumm (1.2-3.4); Absolute Monocyte Count 0.18 k/cumm (0.11-0.7); Absolute Neutrophil Count 7.17 k/cumm (1.2-6.7); Anion Gap 11.4 mmol/L (3-11); BUN 14 mg/dL (7-18); Basophils % 0.1; CO2 22.6 mmol/L (21.0-32.0); CREATININE 0.79 mg/dL (0.70-1.30); Calcium 8.8 mg/dL (8.5-10.1); Chloride 103 mmol/L (98-107); Glucose 229 mg/dL (74-106); HGB 10.9 g/dL (13.5-17.5); Immature Grans % 0.5 %; Lymphocytes % 2.8; Mean Corp. HGB Concentration 34.1 g/dL (32.0-36.0); Mean Corpuscular Volume 93.8 fL (80-95); Mean Platelet Volume 8.6 fL (8.0-11.0); Monocytes % 2.4; Neutrophils % 94.2; Platelet Count 258 x1000/uL (130-400); Potassium 4.2 mmol/L (3.5-5.1); RBC 3.41 m/cumm (4.50-6.00); RBC Distribution Width 16.6 % (11.8-14.1); Sodium 137 mmol/L (136-145); White Blood Cell Count 7.61 k/cumm (4.4-10.8)
[2020-03-08 08:20] LABS: Lactate 1.3 mmol/L (0.6-1.4)
[2020-03-08 08:22] LABS: BE -1.4 mmol/L (-3-3); HCO3 23 mmol/L (22-28); pCO2 33 mmHg (34-47); pH 7.45 (7.35-7.45); pO2 73 mmHg (83-108); sO2 97 % (94-98); tCO2 22 mmol/L (22-29)
[2020-03-08 08:25] LABS: FIO2 40 %; FIO2L 70 L; Site Left Radial
[2020-03-08 08:29] LABS: D-Dimer 1730 ng/mlFEU (<500)
[2020-03-08 08:34] LABS: C-Reactive Protein 22.55 mg/dL (0.0-0.3); NT-proBNP 43 pg/mL (<300); TSH 0.67 uIU/mL (0.36-3.74)
[2020-03-08 08:35] LABS: Troponin I < 0.05 ng/mL (<0.06)
--- NOTE | 2020-03-08 08:54 | INITIAL_ITS ---
- If Service Date Differs Date of service: 03/08/20 Time of Service: 15:17 Care Management Initial Assess REASON FOR HOSPITALIZATION:: Multifocal Pneumonia PAST MEDICAL HISTORY/PAST SURGICAL HISTORY:: Autoimmune necrotizing myopathy, benign prostatic hyperplasia, myositis, prediabetes, spinal stenosis of lumbar region with neurogenic claudication, venous insufficency of left leg PREVIOUS FUNCTIONAL STATUS/SOCIAL/FAMILY SUPPORTS:: Jeison resides in [place], [place] with his , Debora and their children. He is independent at baseline. CURRENT FUNCTIONAL STATUS:: Jeison is on COVID precautions awaiting test results. CM will meet with Jeison once he is cleared. ADVANCE DIRECTIVES:: On file at [facility]. Has patient been provided with info about the portal/API?: Yes Did the patient sign up for the portal?: Yes (Previously) CODE STATUS:: Full Code INSURANCE COVERAGE / FINANCIAL ISSUES:: [employer] CURRENT HOME/COMMUNITY SERVICES/EQUIPMENT:: No current services or equipment. PRIMARY CARE PHYSICIAN:: Garret Bundy POTENTIAL DISCHARGE NEEDS:: Follow up appointment with PCP. PATIENT/FAMILY EDUCATION NEEDS:: Review discharge instructions, discuss Ask Me Three. ANTICIPATED BARRIERS TO DISCHARGE:: None identified at this time. TRANSPORTATION:: Via private vehicle with family. PLAN:: Jeison continues to be closely monitored at this time, in the ICU. Anticipate he will return home, follow up with his outpatient providers and follow up on his plan of care as prescribed. No additional services anticipated at this time. CM continues to follow.
[2020-03-08 09:21] LABS: Ferritin 1978 ng/mL (26-388)
[2020-03-08] MEDS: Cholecalciferol (Vitamin D3) 400 UNIT TAB 1600 UNIT PO (09:25)
[2020-03-08] MEDS: Folic Acid 1 MG TAB PO (09:26)
[2020-03-08] MEDS: Tamsulosin 0.4 MG CAPCR PO (09:26)
[2020-03-08] MEDS: Magnesium Oxide 400 MG TAB PO (09:27)
[2020-03-08] MEDS: Calcium Carbonate 1.5 GM TAB 3 GM PO (09:27)
[2020-03-08] MEDS: Finasteride 5 MG TAB PO (09:27)
[2020-03-08] MEDS: methylPREDNISolone SUCC 40 MG VIAL IVP ×2 (09:28→15:37)
[2020-03-08] MEDS: Insulin Aspart 300 UNITS/3 ML PEN SC ×3 (09:28→16:52)
[2020-03-08] MEDS: levoFLOXacin 750 MG/150 ML BAG 100 MG IVPB (09:29)
[2020-03-08] MEDS: FAMOTIDINE 20 MG/50 ML BAG 200 MG IVPB ×2 (09:30→19:22)
[2020-03-08] MEDS: Ipratropium/Albuterol 4 GM 120 PUFF INH IH ×3 (11:17→19:21)
[2020-03-08 12:00] LABS: COVID-19 RT-PCR UVMMC Result Negative (Negative)
--- NOTE | 2020-03-08 12:18 | PHA.REVIEW ---
Pharmacy Admission Review - Admission Clinical Review (Last Reviewed 03/07/20 @ 20:36 by Garret Bundy MD) Pneumonia (Acute) Multifocal pneumonia (Acute) Chronic steroid use (Acute) Hypoxia (Acute) cat dander Allergy (Unverified 03/07/20 18:22) pollen extracts Allergy (Unverified 03/07/20 18:21) Height 5 ft 11 in Weight 99.79 kg - Renal Dosing Renal Dosing: BUN 14 mg/dL (7-18) 03/08/20 06:25 Creatinine 0.79 mg/dL (0.70-1.30) 03/08/20 06:25 Medications needing adjustments: Reviewed - Anticoagulation Anticoagulation: Hgb 10.9 g/dL (13.5-17.5) L 03/08/20 06:25 Hct 32.0 % (40.0-50.0) L 03/08/20 06:25 Plt Count 258 x1000/uL (130-400) 03/08/20 06:25 INR 1.1 (0.9-1.1) 03/07/20 18:10 Creatinine 0.79 mg/dL (0.70-1.30) 03/08/20 06:25 DVT Prohphylaxis: N/A Therapeutic Anticoagulation: Reviewed Medications: Rivaroxaban - Opiate Usage Evaluate Pain Scale/Pains Meds: N/A - Relevant Labs Sodium 137 mmol/L (136-145) 03/08/20 06:25 Potassium 4.2 mmol/L (3.5-5.1) 03/08/20 06:25 Chloride 103 mmol/L (98-107) 03/08/20 06:25 Magnesium 2.0 mg/dL (1.8-2.4) 03/08/20 06:25 C-Reactive Protein 22.55 mg/dL (0.0-0.3) H 03/08/20 06:25 Electrolytes, C-Reactive P, ESR: Reviewed - DM Control DM Control: Glucose 229 mg/dL (74-106) H 03/08/20 06:25 Finger Stick Blood Glucose 236 Finger Stick Blood Glucose 236 Insulin Dosing: Reviewed (Aspart per SS) - Heart Failure/NE Heart Failure/NE: Troponin I < 0.05 ng/mL (<0.06) 03/08/20 06:25 NT-Pro-B Natriuret Pep 43 pg/mL (<300) 03/08/20 06:25 EF%, MINH's, B-Blockers, Diuretics: N/A - BP Control BP Control: Blood Pressure [Left Arm] 103/63 Blood Pressure 115/71 Blood Pressure 105/72 Blood Pressure 112/57 Blood Pressure 114/75 Blood Pressure 99/48 Blood Pressure 103/63 Blood Pressure 109/61 Blood Pressure 108/69 Blood Pressure 102/45 Blood Pressure 104/54 If elevated: Reviewed - Qtc Review If Elevated: Intervened (QTc 523 -- notified that levofloxacin could affect QTc)
--- NOTE | 2020-03-08 12:45 | DI.RAD_ITS ---
EXAM: XR PORTABLE CHEST AP CLINICAL HISTORY: multifocal pneumonia TECHNIQUE: COMPARISON: CT CT CHEST PE CTA from 03/07/2020 CR,XR XR PORTABLE CHEST AP from 03/07/2020 CR,XR XR PORTABLE CHEST AP from 03/07/2020 FINDINGS: Portable AP chest was obtained. Note is again made of bilateral patchy areas of intrapulmonary opaci ty as described on yesterday's radiograph and chest CT. In comparison with yesterday's radiograph, t here appears to be mildly increased radiodensity of areas of consolidation left mid lung and perhaps right upper lung field. IMPRESSION: Slight interval worsening since yesterday's examination, the findings remain consistent with bilatera l pneumonia.
[2020-03-08] MEDS: Furosemide 20 MG/2 ML VIAL IVP (15:37)
[2020-03-08] MEDS: CEFEPIME 2 GM in Normal Saline 100 ML IVPB (17:41)
--- NOTE | 2020-03-08 18:28 | W.PM.DS.N ---
Date of service: 03/08/20 Time of Service: 18:29 DS: Diagnosis Discharge Diagnosis (1) Sepsis: Status: Acute (2) Acute respiratory failure with hypoxia: Status: Acute (3) Multifocal pneumonia: Status: Acute (4) Autoimmune necrotizing myopathy: Status: Acute (5) Steroid-induced hyperglycemia: Status: Acute Discharge Plan Disposition Patient Disposition: [facility] Condition: Serious Discharge Details Chief Complaint: SOB Clinical Impression: Multifocal pneumonia, Chronic steroid use, Hypoxia Reason For Visit: MULTIFOCAL PNEUMONIA Admit Date/Time: 03/07/20 20:47 Admit Provider: Garret Bundy Attending Provider: Garret Bundy Primary Care Provider: Talon Constantino ED Provider: Marry Levy Hospital Course Hospital Course: Mr Bell is a 64 year old male with PMHx of autoimmune necrotizing myopathy, on methotrexate, cellcept, and methylprednisolone therapy at home, as well as h/o prediabetes, peripheral vascular disease, PAD, who was admitted to [facility] ICU on 03/07/2020 with acute hypoxic respiratory failure with findings of multifocal infiltrates on CT and a fever, c/w multifocal pneumonia. COVID-19 was ruled out with a negative nasopharyngeal swab. The patient was initiated on empiric vancomycin/zosyn, which was changed to vancomycin/cefepime. He was initiated on humidified heated high flow nasal canula, requiring 40 L at 80% FiO2, on which he has remained throughout his stay without being able to be weaned off. He was initiated on systemic steroids. His blood cultures are still pending. The case was discussed with [facility] critical care, and it is felt by both this provider and Dr Alicia of critical care who had discussed the case with her supervising attending that the patient would benefit from a transfer to a tertiary care facility such as [facility] for pulmonology evaluation for a bronchoscopy, because his infiltrates could be due to an opportunistic infection such as PJP, pulmonary toxicity from methotrexate, interstitial lung disease associated with his autoimmune process, or a conventional pneumonia that is severe. It would be impossible to properly diagnose this at [facility] without pulmonology/bronchoscopy, which we do not have available. The patient was accepted in transfer to [facility] ICU under the care of Dr Mike Lema Team. The patient is stable for transfer on nonrebreather at 100% FiO2. Total Critical Care Time on day of transfer took 1 hour. * For medications on transfer, please see MAR. Home Meds and New Rx's Prescriptions: No Action ibuprofen 200 MG capsule 400 mg PO daily prn RF: 0 therawork 1 applic Topical hs prn RF: 0 Xarelto 20 mg tablet 20 mg PO QPM Qty: 30 RF: 5 tamsulosin 0.4 mg capsule 0.4 mg PO DAILY Qty: 90 RF: 3 sofia leg cramp 1 tab PO HS PRN RF: 0 mycophenolate mofetil 500 mg tablet 1,000 mg PO BID RF: 0 methotrexate sodium 2.5 mg tablet 15 mg PO QWEEK RF: 0 folic acid 1 mg tablet 1 mg PO DAILY RF: 0 calcium carbonate [Calcium 600] 600 mg calcium (1,500 mg) tablet 1,200 mg PO DAILY RF: 0 cholecalciferol (vitamin D3) 10 mcg (400 unit) capsule 1,600 unit PO DAILY RF: 0 methylprednisolone 4 mg tablet 20 mg PO DAILY RF: 0 magnesium oxide 500 mg capsule 500 mg PO DAILY RF: 0 chaga 6 oz PO DAILY RF: 0 finasteride 5 mg tablet 5 mg PO DAILY Qty: 30 RF: 5 Discharge Instructions Activity:: bedrest, turn Q2H Diet:: NPO Discharge Orders Discharge Orders: Discharge Order (Routine); Ordered 03/08/20 Ordered By: Arlyn Beck DS: Summary Status at Discharge Functional status at discharge: bed bound Overall status at discharge: patient is not back to baseline Mental Status: mental status grossly normal Speech and Movement: speech and movement normal Mood: congruent mood Affect: normal affect Exam Narrative Exam Narrative: General: Very pleasant middle-aged male, sitting at the side of the bed, tachypneic just from sitting up, comfortable at rest, A&Ox3 HEENT: EOMI, MMM Heart: RRR, no m/r/g Lungs: faint crackles at B bases Abdomen: soft, nontender, nondistended Extremities: trace edema BLE when in dependent position, no c/c, trace pedal pulses B Psych Mental Status: mental status grossly normal Speech and Movement: speech and movement normal Mood: congruent mood Affect: normal affect DS: Data Vitals/I&O Vitals and I&O: Vital Signs Temperature 36.4 C L 03/08/20 15:30 Temperature Source Temporal Artery Scan 03/08/20 15:30 Pulse 84 06/25/20 16:06 Pulse 100 H 03/08/20 17:40 Respiratory Rate 25 H 03/08/20 17:40 Respiratory Effort Non-Labored 03/08/20 16:13 Respiratory Depth Shallow 03/08/20 16:13 Respiratory Pattern Tachypnea 03/08/20 16:13 Blood Pressure 111/86 03/08/20 16:06 Blood Pressure Mean 93 03/08/20 16:06 Blood Pressure Position Right Lateral 03/08/20 04:25 Pulse Oximetry 94 L 03/08/20 17:40 Oxygen Delivery Method Hi Flow Nasal Cannula 03/08/20 11:35 Oxygen Flow Rate 40 03/08/20 12:59 Fraction of Inspired Oxygen (FIO2) 79 03/08/20 12:59 Pain Level 0 03/08/20 16:13 Comment 03/07/20 21:18 Intake & Output 03/07/20 03/08/20 03/08/20 23:59 11:59 23:59 Intake Total 1350 / 1350 1120 / 1620 500 / 1620 Output Total 200 / 200 1875 / 3175 1300 / 3175 Balance 1150 / 1150 -755 / -1555 -800 / -1555 Weight 99.79 kg 99.79 kg Intake: IV 1350 / 1350 750 / 850 100 / 850 Oral 370 / 770 400 / 770 Output: Urine 200 / 200 1875 / 3175 1300 / 3175 Other: Urine Color Yellow Yellow Light Rashmi Urine Appearance Clear Clear Urine Odor None Normal Voiding Methods Urinal Urinal Data Completed and Pending Completed studies during hospitalization [Text1]: CXR 03/07/2020: Probable bilateral patchy pneumonia. Appropriate follow-up studies requested. CTA chest 03/07/2020: Bilateral pulmonary opacities as described above with ground-glass, consolidative, and ?crazy paving? features. Findings are consistent with pneumonia of uncertain cause, including viral etiology. CXR 03/08/2020: Slight interval worsening since yesterday's examination, the findings remain consistent with bilateral pneumonia. Labs on day of discharge: Labs from last 24 hours 03/08/20 03/08/20 03/08/20 08:20 08:15 06:25 WBC 7.61 RBC 3.41 L Hgb 10.9 L Hct 32.0 L MCV 93.8 MCH 32.0 MCHC 34.1 RDW 16.6 H Plt Count 258 MPV 8.6 Immature Gran % 0.5 Neutrophils % 94.2 Lymphocytes % 2.8 Monocytes % 2.4 Eosinophils % 0.0 Basophils % 0.1 Absolute Neutrophils 7.17 H Absolute Lymphocytes 0.21 L Absolute Monocytes 0.18 Absolute Eosinophils 0.00 Absolute Basophils 0.01 PT INR APTT D-Dimer ABG Sample Site Left radial ABG pH 7.45 ABG pCO2 33 L ABG pO2 73 L ABG HCO3 23 ABG Total CO2 22 ABG O2 Saturation 97 ABG Base Excess -1.4 Oxygen Liter Flow 70 FiO2 40 Sodium Potassium Chloride Carbon Dioxide Anion Gap BUN Creatinine Estimated GFR/1.73 m2 Glucose Lactate 1.3 Calcium Magnesium Ferritin Total Bilirubin AST ALT Alkaline Phosphatase Lactate Dehydrogenase Troponin I C-Reactive Protein NT-Pro-B Natriuret Pep Total Protein Albumin Procalcitonin TSH COVID-19 PCR Nasopharyn COVID-19 PCR Ref Test Perform Site 03/08/20 03/08/20 03/07/20 06:25 06:24 20:00 WBC RBC Hgb Hct MCV MCH MCHC RDW Plt Count MPV Immature Gran % Neutrophils % Lymphocytes % Monocytes % Eosinophils % Basophils % Absolute Neutrophils Absolute Lymphocytes Absolute Monocytes Absolute Eosinophils Absolute Basophils PT INR APTT D-Dimer 1730 H ABG Sample Site ABG pH ABG pCO2 ABG pO2 ABG HCO3 ABG Total CO2 ABG O2 Saturation ABG Base Excess Oxygen Liter Flow FiO2 Sodium 137 Potassium 4.2 Chloride 103 Carbon Dioxide 22.6 Anion Gap 11.4 H BUN 14 Creatinine 0.79 Estimated GFR/1.73 m2 >= 60.00 Glucose 229 H Lactate Calcium 8.8 Magnesium 2.0 Ferritin 1978 H Total Bilirubin AST ALT Alkaline Phosphatase Lactate Dehydrogenase Troponin I < 0.05 C-Reactive Protein 22.55 H NT-Pro-B Natriuret Pep 43 Total Protein Albumin Procalcitonin TSH 0.67 COVID-19 PCR Negative Nasopharyn COVID-19 PCR Not Applicable Ref Test Perform Site [facility] 03/07/20 03/07/20 03/07/20 18:45 18:10 18:10 WBC RBC Hgb Hct MCV MCH MCHC RDW Plt Count MPV Immature Gran % Neutrophils % Lymphocytes % Monocytes % Eosinophils % Basophils % Absolute Neutrophils Absolute Lymphocytes Absolute Monocytes Absolute Eosinophils Absolute Basophils PT INR APTT D-Dimer 1806 H ABG Sample Site Left radial ABG pH 7.53 H ABG pCO2 28 L ABG pO2 63 L ABG HCO3 23 ABG Total CO2 21 L ABG O2 Saturation 94 ABG Base Excess 0.5 Oxygen Liter Flow 2.5 FiO2 Sodium Potassium Chloride Carbon Dioxide Anion Gap BUN Creatinine Estimated GFR/1.73 m2 Glucose Lactate Calcium Magnesium Ferritin Total Bilirubin AST ALT Alkaline Phosphatase Lactate Dehydrogenase Troponin I C-Reactive Protein NT-Pro-B Natriuret Pep Total Protein Albumin [facility]calcitonin [facility].3 [facility] Ref Test Perform Site 03/07/20 03/07/20 03/07/20 18:10 18:10 18:10 WBC RBC Hgb Hct MCV MCH MCHC RDW Plt Count MPV Immature Gran % Neutrophils % Lymphocytes % Monocytes % Eosinophils % Basophils % Absolute Neutrophils Absolute Lymphocytes Absolute Monocytes Absolute Eosinophils Absolute Basophils PT 11.3 H INR 1.1 APTT 35.0 H D-Dimer ABG Sample Site ABG pH ABG pCO2 ABG pO2 ABG HCO3 ABG Total CO2 ABG O2 Saturation ABG Base Excess Oxygen Liter Flow FiO2 Sodium Potassium Chloride Carbon Dioxide Anion Gap BUN Creatinine Estimated GFR/1.73 m2 Glucose Lactate 2.2 H* Calcium Magnesium Ferritin 1832 H Total Bilirubin AST ALT Alkaline Phosphatase Lactate Dehydrogenase 548 H Troponin I C-Reactive Protein 22.64 H NT-Pro-B Natriuret Pep Total Protein Albumin Procalcitonin [facility]19 [facility]19 PCR Ref Test Perform Site 03/07/20 03/07/20 18:10 18:10 WBC 7.28 RBC 3.95 L Hgb 12.6 L Hct 36.5 L MCV 92.4 MCH 31.9 MCHC 34.5 RDW 16.6 H Plt Count 230 MPV 8.7 Immature Gran % 0.8 Neutrophils % 87.8 Lymphocytes % 6.2 Monocytes % 4.1 Eosinophils % 0.8 Basophils % 0.3 Absolute Neutrophils 6.39 Absolute Lymphocytes 0.45 L Absolute Monocytes 0.30 Absolute Eosinophils 0.06 Absolute Basophils 0.02 PT INR APTT D-Dimer ABG Sample Site ABG pH ABG pCO2 ABG pO2 ABG HCO3 ABG Total CO2 ABG O2 Saturation ABG Base Excess Oxygen Liter Flow FiO2 Sodium 134 L Potassium 4.1 Chloride 99 Carbon Dioxide 25.0 Anion Gap 10.0 BUN 16 Creatinine 0.89 Estimated GFR/1.73 m2 >= 60.00 Glucose 157 H Lactate Calcium 9.4 Magnesium 1.8 Ferritin Total Bilirubin 1.1 H AST 54 H ALT 58 Alkaline Phosphatase 61 Lactate Dehydrogenase Troponin I < 0.05 C-Reactive Protein NT-Pro-B Natriuret Pep Total Protein 6.8 Albumin 2.5 L Procalcitonin TSH COVID-19 PCR Nasopharyn COVID-19 PCR Ref Test Perform Site 03/07/20 18:42 Blood Blood Culture - Pending 03/07/20 18:10 Blood Blood Culture - Pending Preliminary micro results at discharge 03/07/20 18:42 Blood Culture - Pending Blood 03/07/20 18:10 Blood Culture - Pending Blood [facility] Medical History Autoimmune necrotizing myopathy (Acute ~01/30/20) [facility] Benign prostatic hyperplasia (Acute 12/23/16) with elevated PSA TRUS biopsies negative X 2 Myositis (Acute ~11/25/18) 11/25/18 [facility] Prediabetes (Acute 12/23/16) Spinal stenosis of lumbar region with neurogenic claudication (Acute ~01/30/20) [facility] Venous insufficiency of left leg (Acute 12/23/16) Family History Father , age 71 Pancreatic cancer Mother , age 86 No problems noted. Sister No problems noted. Maternal Grandfather , 94 Heart disease Paternal Grandfather , 54 Leukemia Maternal Grandmother , 101 No problems noted. Paternal Grandmother , 93 No problems noted. Son No problems noted. Son No problems noted. Daughter No problems noted. Social History Smoking/Tobacco Use Status: Former Tobacco Use Quit Date: 10/14/16 Quit status: quit date established Second Hand Exposure: Yes Alcohol Intake: current Alcohol Intake frequency: 0-2 drinks per day Alcohol type: beer Drug use: Never Substance use type: does not use Caregiver/Support person: No Household members: spouse Housing: house Communication Needs: None Do you need help understanding health information?: Never Pets and animals: No Sexually active: Yes Do you think of yourself as: straight/heterosexual Current gender identity: male What is your relationship status?: How often do you talk on the phone with friends or family?: three or more times per week How often do you get together with friends or relatives?: three or more times per week How often do you attend baptist or oriental orthodox services?: decline to answer Do you belong to any clubs or organized social groups?: no Panel score (0-1 are the most socially isolated patients): 2 What type of physical activity do you participate in: none Duration: < 15 minutes/day Frequency: 1-2 times per week Harmony/Pentecostalism: Restorationism Special harmony needs: No Seatbelt use: always Helmet use: No Drive intox or ride w/intox local flatbed driver: No
[2020-03-08] MEDS: Rivaroxaban 10 MG TABLET 20 MG PO (19:20)
--- NOTE | 2020-03-08 20:20 | NUR.NOTE ---
Multiple discussions were had with Dr. Beck, [facility], [facility], and Catrina Ponce regarding setting up transport for the patient. Dr. Beck wanted [facility] given the patient's respiratory status of having to be transferred from hi-flow oxygen system to the Non-rebreather. The patient was trialed on the non-rebreather from the hi-flow and was able to maintain 02 sat of 94% and states his breathing feels the same as on the hi-flow system. The patient's RR increased to 30s but he states he realizes that he was just breathing shallow and corrected it. Patient breathing 20s RR when resting. The patient contacted his and we allowed time for her to visit before the patient was transported. Pt sent to [facility] via [facility]. Nursing Note:
== END 2020-03-08 20:04 | disposition short-term general hospital (02) | DRG 871 ==
LOC: ER 22:24 → ICU 22:26
PROVIDERS: Internal Medicine; Admitting Provider General Practice; Emergency Provider Physician Assistant; PCP Family Medicine; Visit Provider General Practice
DX: A41.9 Sepsis, unspecified organism (principal); J18.9 Pneumonia, unspecified organism; J96.01 Acute respiratory failure with hypoxia; Z79.01 Long term (current) use of anticoagulants; G72.49 Other inflammatory and immune myopathies, not elsewhere classified; D89.89 Other specified disorders involving the immune mechanism, not elsewhere classified; N40.0 Benign prostatic hyperplasia without lower urinary tract symptoms; I87.2 Venous insufficiency (chronic) (peripheral); M48.062 Spinal stenosis, lumbar region with neurogenic claudication; Z87.891 Personal history of nicotine dependence; R73.9 Hyperglycemia, unspecified; T38.0X5A Adverse effect of glucocorticoids and synthetic analogues, initial encounter; I73.9 Peripheral vascular disease, unspecified
CPT/HCPCS: 36415; 71275; 80048; 80053; 82805; 84145; 87040; 93005; 94640; 96361; 96365; 96366; 96367; 96368; 96374; 99223; 99285; 99291; U0003; 36600; 71045; 82728; 83605; 83615; 83735; 83880; 84443; 84484; 85025; 85379; 85610; 85730; 86140; 93010; J0131; J1941; J1956; J2543; J3370; J3490; J7517; J7620

== ENCOUNTER 2020-05-31 04:38 | Outpatient (CLI) | payer BC, SELFPAY ==
[2020-05-31 13:10] LABS: Hemoglobin A1C 6.2 % (<5.7)
[2020-05-31 13:19] LABS: ALT 33 U/L (16-63); AST 28 U/L (15-37); Albumin 3.7 g/dL (3.4-5.0); Alkaline Phosphatase 36 U/L (46-116); Anion Gap 8.5 mmol/L (3-11); BUN 16 mg/dL (7-18); Bilirubin, Total 0.3 mg/dL (0.2-1.0); CO2 27.5 mmol/L (21.0-32.0); CREATININE 0.99 mg/dL (0.70-1.30); Calcium 9.8 mg/dL (8.5-10.1); Chloride 104 mmol/L (98-107); Creatine Kinase 295 U/L (39-308); Glucose 113 mg/dL (74-106); Potassium 4.3 mmol/L (3.5-5.1); Sodium 140 mmol/L (136-145); Total Protein 6.5 g/dL (6.4-8.2)
== END 2020-05-31 04:58 ==
PROVIDERS: PCP Family Medicine; Visit Provider Family Medicine
DX: R73.9 Hyperglycemia, unspecified (principal); G72.49 Other inflammatory and immune myopathies, not elsewhere classified; R10.9 Unspecified abdominal pain
CPT/HCPCS: 36415; 80053; 82550; 83036; 86787

== ENCOUNTER 2020-07-30 01:09 | Outpatient (CLI) | payer BC, SELFPAY ==
[2020-07-30 13:44] LABS: Creatine Kinase 557 U/L (39-308)
== END 2020-07-30 01:29 ==
PROVIDERS: PCP Family Medicine; Visit Provider Family Medicine
DX: M60.9 Myositis, unspecified (principal)
CPT/HCPCS: 36415; 82550

== ENCOUNTER 2020-09-05 03:23 | Outpatient (CLI) | payer BC, SELFPAY ==
--- OUTSIDE RECORDS SUMMARY | 2020-09-05 03:26 | XMS_ITS | Encounter Summary ---
:1955 Author Organization [facility] [place] [address] Care Team Providers Name Role Phone Virgen Constantino MD Primary Care Provider Reason for Visit Reason Onset Date Comments TeleHealth 08/24/2020 Appt 08/27/20 Encounter Details Date Type Department Care Team Description 08/24/2020 Telephone Neurology at [facility] Leon Osuna, TeleHealth (Appt [facility] 08/27/20) [place] [address] NEUR[address]PT[address] [place], [place] [address] [phone] Social History Tobacco Use Types Packs/Day Years Used Date Former Smoker Smokeless Tobacco: Never Used Comments: Quit in 2017 Alcohol Use Drinks/Week oz/Week Comments Not Currently 14-21 Cans of beer 14.0 - 21.0 1 beer a day Alcohol Habits Answer Date Recorded How often do you have a drink containing 4 or more times a w [place] 08/15/2019 alcohol? How many drinks containing alcohol do you have 1 or 2 08/15/2019 on a typical day when you are drinking? How often do you have six or more drinks on one Never 08/15/2019 occasion? Sex Assigned at Date Recorded Not on file documented as of this encounter Miscellaneous Notes Telephone Encounter - Kamala Chawla CMA - 08/24/2020 10:05 AM ESTSpoke with patient to review medications and allergies prior to upcoming tele- appointment scheduledwith Neurology provider. documented in this encounter Plan of Treatment Not on filedocumented as of this encounter Visit Diagnoses Not on filedocumented in this encounter
--- OUTSIDE RECORDS SUMMARY | 2020-09-05 03:26 | XMS_ITS | Encounter Summary ---
:1955 Author Organization [facility] [place] [address] Care Team Providers Name Role Phone Virgen Constantino MD Primary Care Provider Encounter Details Date Type Department Care Team Description 06/08/2020 Telephone Pain and Spine Orlin ayon at [facility] [place] [address] Social History Tobacco Use Types Packs/Day Years Used Date Former Smoker Smokeless Tobacco: Never Used Comments: Quit in 2017 Alcohol Use Drinks/Week oz/Week Comments Not Currently 14-21 Cans of beer 14.0 - 21.0 1 beer a day Alcohol Habits Answer Date Recorded How often do you have a drink containing 4 or more times a w [id number] 08/15/2019 alcohol? How many drinks containing alcohol do you have 1 or 2 08/15/2019 on a typical day when you are drinking? How often do you have six or more drinks on one Never 08/15/2019 occasion? Sex Assigned at Date Recorded Not on file documented as of this encounter Plan of Treatment Not on filedocumented as of this encounter Visit Diagnoses Not on filedocumented in this encounter
--- OUTSIDE RECORDS SUMMARY | 2020-09-05 03:26 | XMS_ITS | Encounter Summary ---
:1955 Author Organization [facility] Address [place] [id number] Care Team Providers Name Role Phone Virgen Constantino MD Primary Care Provider Reason for Visit Auth/Cert Status Reason Specialty Diagnoses / Procedures Referred By C ontact Referred To Contact Diagnoses 000 Procedures PRO INJECTION DX/THER SBST INTRLMNR LMBR/SAC W/IMG GDN INJECTION, EPIDURAL, LUMBAR OR SACRAL (CAUDAL), WITH IMAGING GUIDANCE (WRVU 1.8) Encounter Details Date Type Department Care Team Description 07/04/2020 Hospital Encounter Pain Management Chelly Motley MD Spinal stenosis of [facility] lumbar region with [facility] DR girard [facility] [place] [id number] [phone] Social History Tobacco Use Types Packs/Day Years Used Date Former Smoker Smokeless Tobacco: Never Used Comments: Quit in 2017 Alcohol Use Drinks/Week oz/Week Comments Not Currently 14-21 Cans of beer 14.0 - 21.0 1 beer a day Alcohol Habits Answer Date Recorded How often do you have a drink containing 4 or more times a w [place] 08/15/2019 alcohol? How many drinks containing alcohol do you have 1 or 2 08/15/2019 on a typical day when you are drinking? How often do you have six or more drinks on one Never 08/15/2019 occasion? Sex Assigned at Date Recorded Not on file documented as of this encounter Last Filed Vital Signs Vital Sign Reading Time Taken Comments Blood Pressure 132/91 07/04/2020 8:10 AM EDT Pulse 85 07/04/2020 7:40 AM EDT Temperature - - Respiratory Rate 14 07/04/2020 7:40 AM EDT Oxygen Saturation 92% 07/04/2020 8:10 AM EDT Inhaled Oxygen Concentration - - Weight - - Height - - Body Mass Index - - documented in this encounter Discharge Instructions InstructionsGaBonnie pollard RN - 07/04/2020 [facility] Discharge Instructions: You were seen today by Surgeon(s): Chelly Motley MD Truong, Quyen V, MD The following was performed: Procedure(s) (LRB): INJECTION, EPIDURAL, LUMBAR OR SACRAL (CAUDAL), WITH IMAGING GUIDANCE (WRVU 1.8) (N/A) It is normal that the injection site will be sore for up to 48 hours. [x] You may also experience mild stiffness in the joint near the injection site. You may resume your normal activities: tomorrow. You may shower today. DO NOT tub bathe, use whirlpools, hot tubs or pool therapy for 2 days. Remove Band-Aid(s) later today/tomorrow. Do not drive until tomorrow. Use caution walking/climbing stairs as you may be unsteady on your feet. You may use your usual medications, including pain medications, as directed, unless otherwise instructed. You may use an ice pack as needed for the first 24 hours, on for 20 minutes then off for 20 minutes.Do not apply heat today. Attempt to empty your bladder 4-6 hours after your procedure. You received the following medications: Medications Given During Procedure Date/Time Order Dose Route Action 07/04/2020 0803 iohexoL (OMNIPAQUE) 240 mg/mL solution 1 mL Epidural Given 07/04/2020 08 lidocaine (PF) (Xylocaine) 1% (10 mg/mL) injection 2 mL Subdermal Given 07/04/2020 08 methylPREDNISolone acetate (DEPO-Medrol) (40 mg/mL) injection 40 mg Epidural Given During regular business hours, please phone the Pain Management Center at with any questions or if the following or other troubling symptoms develop: 1) Prolonged dizziness or weakness (more than 1 day). 2) Localized swelling, redness or drainage at the injection site(s). 3) Temperature of 101 degrees that lasts for more than 4 hours. After 5 PM or on weekends, call and ask for Pain Clinic provider on-call. If you are unable to reach the Pain Management Center and have a complication, please call your Primary Care Provider or proceed to your local emergency department. Bonnie Yusuf RN Special instructions documented in this encounter Medications at Time of Discharge Medication Sig Dispensed Refills Start Date End Date furosemide (Lasix) 20 mg 20 mg daily. 0 0 Tablet simethicone (Mylicon) 80 Take 0.5 tablets by 30 tablet 0 mg Tablet, Chewable mouth every 6 hours as needed. polyethylene glycoL Take 17 g by mouth 14 each 0 03/22/20 20 (Miralax) 17 gram Powder 2 times daily as in Packet needed. senna-docusate Take 2 tablets by 60 tablet 11 03/22/2020 (Pericolace) 8.6-50 mg mouth 2 times Tablet daily. Hold for loose stools insulin lispro (HumaLOG) Give QAC and QHS; 12 05/2020 Solution BG 140 - 160 Give 3 units, BG 161 - 200 Give 6 units, BG 201 - 240 Give 9 units, BG >240, give 12 units pantoprazole EC Take 1 tablet by 90 tablet 3 03/22/2020 (Protonix) 40 mg Tablet, mouth daily. Delayed Release (E.C.) finasteride (Proscar) 5 Take 5 mg by mouth 0 mg Tablet daily. magnesium 250 mg Tablet Take 500 mg by 0 mouth daily. Xarelto 20 mg Tablet Take 20 mg by mouth 0 2019 daily. tamsulosin (FLOMAX) 0.4 Take 0.8 mg by 0 mg Capsule mouth daily. ibuprofen (ADVIL;MOTRIN) Take 400 mg by 0 400 mg Tablet mouth every 6 hours as needed for Pain. gabapentin (Neurontin) 200 mg 2 times 0 0 08/24/2020 100 mg Capsule daily. predniSONE (Deltasone) 5 Take 4 tablets by 120 tablet 3 /11/201908/30/2020 mg Tablet mouth daily. sulfamethoxazole-trimetho Take 4 tablets by 60 tablet 0 08/30/2020 prim DS (Bactrim DS) mouth three times a 800-160 mg Tablet week. folic acid (Folvite) 1 mg Take 1 tablet by 90 tablet 3 11/1308/30/2020 Tablet mouth daily. documented as of this encounter H&P Notes Yanet Ho MD - 07/04/2020 7:49 AM EDT Patient Name: Jeison Cervantes Patient Age: 64 y.o. Birthdate: 1955 Admit date: (Not on file) Attending Physician: Chelly Motley MD PREPROCEDURE HISTORY AND PHYSICAL Date of Visit: July 04, 2020 Chief Complaint: Low back and leg pain HPI: Subjective Jeison Cervantes is a 64 y.o. male who presents today for Procedure: lumbar interlaminar epidural steroid injection. Referred by Talon Constantino and evaluated by Dr. Otero. The patient has held his NSAID and anticoagulation (xarelto appropriately held since 06/30/20 in preparation for the procedure). The patient denies any allergy to local anesthetics, contrast dye, or steroids. The history is obtained from the patient, and I have reviewed medical records provided by the referring physician and located in the electronic medical record to fill in gaps in the patient's recollection of events, treatments and outcomes. LOCATION: across the lower back and radiating to bilateral leg(s). PAIN LEVEL AT REST 5/10 PAST MEDICAL HISTORY: Past Medical History: Diagnosis Date ??? 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 Venous insufficiency of left lower extremity 05/04/2018 PAST SURGICAL HISTORY: Past Surgical History: Procedure Laterality Date ??? PRO BIOPSY MUSCLE DEEP Left 12/16/2018 BIOPSY OF MUSCLE, DEEP, LOWER EXTREMITY (WRVU 2.35) performed by Leon Osuna MD at [facility] ALLERGIES: Cat dander; Dog dander; and Hay [grass pollen-bermuda, standard] MEDICATIONS: No current facility-administered medications on file prior to encounter. Current Outpatient Medications on File Prior to Encounter Medication Sig Dispense Refill ??? predniSONE (Deltasone) 5 mg Tablet Take 4 tablets by mouth daily. 120 tablet 3 ??? simethicone (Mylicon) 80 mg Tablet, Chewable Take 0.5 tablets by mouth every 6 hours as needed. (Patient not taking: Reported on 04/16/2020) 30 tablet 0 ??? polyethylene glycoL (Miralax) 17 gram Powder in Packet Take 17 g by mouth 2 times daily as needed. (Patient not taking: Reported on 04/16/2020) 14 each 0 ??? senna-docusate (Pericolace) 8.6-50 mg Tablet Take 2 tablets by mouth 2 times daily. Hold for loose stools (Patient not taking: Reported on 04/16/2020) 60 tablet 11 ??? sulfamethoxazole-trimethoprim DS (Bactrim DS) 800-160 mg Tablet Take 4 tablets by mouth three times a week. 60 tablet 0 ??? insulin lispro (HumaLOG) Solution Give QAC and QHS; BG 140 - 160 Give 3 units, BG 161 - 200 Give 6 units, BG 201 - 240 Give 9 units, BG >240, give 12 units 12 ??? pantoprazole EC (Protonix) 40 mg Tablet, Delayed Release (E.C.) Take 1 tablet by mouth daily. (Patient not taking: Reported on 04/16/2020) 90 tablet 3 ??? FINASTERIDE ORAL Take 5 mg by mouth daily. ??? magnesium 250 mg Tablet Take 500 mg by mouth daily. ??? calcium carbonate 648 mg calcium Tablet Take 650 mg by mouth 3 times daily (with meals). ??? cholecalciferol, Vitamin D3, (cholecalciferol, Vitamin D3,) 50 mcg (2,000 unit) Capsule Take bymouth. ??? folic acid (Folvite) 1 mg Tablet Take 1 tablet by mouth daily. (Patient taking differently: Take by mouth daily.) 90 tablet 3 ??? Xarelto 20 mg Tablet Take 20 mg by mouth daily. ??? tamsulosin (FLOMAX) 0.4 mg Capsule Take 0.4 mg by mouth daily. ??? ibuprofen (ADVIL;MOTRIN) 400 mg Tablet Take 400 mg by mouth every 6 hours as needed for Pain. FAMILY HISTORY: No family history on file. SOCIAL HISTORY: Social History Socioeconomic History ??? Marital status: Spouse name: Not on file ??? Number of children: Not on file ??? Years of education: Not on file ??? Highest education level: Not on file Occupational History ??? Not on file Social Needs ??? Financial resource strain: Not on file ??? Food insecurity Worry: Not on file Inability: Not on file ??? Transportation needs Medical: Not on file Non-medical: Not on file Tobacco Use ??? Smoking status: Former Smoker ??? Smokeless tobacco: Never Used ??? Tobacco comment: Quit in 2017 Substance and Sexual Activity ??? Alcohol use: Not Currently Alcohol/week: 14.0 - 21.0 standard drinks Types: 14 - 21 Cans of beer per week Frequency: 4 or more times a week Drinks per session: 1 or 2 Binge frequency: Never Comment: 1 beer a day ??? Drug use: Never ??? Sexual activity: Not on file Comment: deferred Lifestyle ??? Physical activity Days per week: Not on file Minutes per session: Not on file ??? Stress: Not on file Relationships ??? Social connections Talks on phone: Not on file Gets together: Not on file Attends muslim service: Not on file Active member of club or organization: Not on file Attends meetings of clubs or organizations: Not on file Relationship status: Not on file ??? Intimate partner violence Fear of current or ex partner: Not on file Emotionally abused: Not on file Physically abused: Not on file Forced sexual activity: Not on file Other Topics Concern ??? Not on file Social History Narrative ??? Not on file ROS: Pt denies recent fever, chills, infection, wounds, hospitalizations, ED visits, use of antibiotics. Otherwise, as described above. PHYSICAL EXAM: There were no vitals taken for this visit. Physical Exam Constitutional: Pt oriented to person, place, and time. Appears well-developed and well-nourished. No distress. HENT: Normocephalic and atraumatic. Pulmonary/Chest: Effort normal. Neurological: Alert and oriented to person, place, and time. No cranial nerve deficit. Moves all extremities at least antigravity Skin: Skin is warm and dry. No rash noted. Not diaphoretic. Psychiatric: Normal mood and affect. RADIOLOGIC DATA: Relevant imaging reviewed LABS/DX RESULTS: Last 3 wbc, hgb, hct plt Recent Labs 04/16/20 1027 03/21/20 0510 03/20/20 0444 WBC 8.6 7.1 8.2 HGB 13.2* 11.1* 10.7* HCT 42.0 34.2* 32.2* PLATELET 261 240 267 Last 3 Lytes Recent Labs 04/16/20 1027 03/21/20 0510 03/20/20 0444 NA 141 130* 129* K 3.7 4.3 4.4 CL 102 93* 93* CO2 25 24 26 BUN 11 14 14 CREATININE 0.64* 0.74* 0.68* Last 3 LFTs Recent Labs 04/16/20 1027 03/08/20 2200 02/09/20 0911 11/21/19 0829 AST 14 35 18 < > 40* ALT 31 43 75* < > 33 ALKPHOS 46 54 37* < > 37* BILITOT 0.2 0.4 0.5 < > 0.5 BILIDIR -- -- -- -- 0.1 < > = values in this interval not displayed. Last 3 Coags No results for input(s): PT, INR, PTT in the last 168 hours. Last 3 HgbA1C Recent Labs 03/08/20 2200 HA1C 8.8* ASSESSMENT: Assessment 1. Spinal stenosis of lumbar region with neurogenic claudication PLAN: Proceed with planned lumbar interlaminar epidural steroid injection. Addressed all questions and concerns. Risks and benefits discussed with patient. No contraindications to the procedure at this time, will proceed. Yanet Ho MD Pain Management Fellow [address] [phone] / [facility] documented in this encounter Miscellaneous Notes Op Note - Chelly Motley MD - 07/04/2020 8:14 AM EDTPain Management Operative Note Patient Name: Jeison Cervantes : [id number] MR#: [id number] Case Date: 07/04/2020 Surgeon: Surgeon(s) and Role: * Chelly Motley MD - Primary Yanet Austin Ho MD - Fellow Present on Admission: ??? Spinal stenosis of lumbar region Postoperative diagnosis: same Procedure(s) (LRB): INJECTION, EPIDURAL, LUMBAR OR SACRAL (CAUDAL), WITH IMAGING GUIDANCE (VU 1.8) (N/A) LUMBAR INTERLAMINAR EPIDURAL STERIOID INJECTION PROCEDURE NOTE Mr. Jeison Cervantes has been referred to the Pain Management Center for a lumbar epidural steroid injection by Talon Constantino MD [address] [place] [address]. The patient complains of low back pain with pain radiating down the bilateral leg. Mr. Cervantes was greeted by the nurse who verified patients name and . The patient was then taken to the fluoroscopy suite. Mr. Cervantes was interviewed and the medical record reviewed. There were no medical, pharmacologic,radiographic, or other structural contraindications to attempting fluoroscopically guided lumbar epidural steroid injection. Risks and potential side effects, as well as potential benefits of the procedure were reviewed with Mr. Cervantes. His voiced concerns were addressed. After I was assured that informed consent was obtained, the patient consent form was signed. Standard time-out procedure was performed. Mr. Cervantes was placed in the prone position on the fluoroscopy table and automated blood pressure cuff and pulse oximeter applied. The skin entry point for entering/approaching the L3-L4 epidural space for the lumbar epidural steroid injection was marked. Following thorough chlorhexadine preparation of the skin and draping and 1% lidocaine infiltration of the skin entry point and subcutaneous tissues, an 18 gauge Touhy needle was placed and advanced under fluoroscopic guidance and with loss of resistance technique into the L3-L4 epidural space. Needle tip placement and depth were aided and confirmed by fluoroscopy. There was no paresthesia or return of blood or CSF through the needle. 2 cc's of Omnipaque 240 was injected (48 cc's was wasted) with clear epidural spread confirmed with fluoroscopy. 40mg preservative-free Depomedrol (40 mg/cc) mixed with 2 ml preservative free lidocaine 1% wasinjected. This was followed by 1 cc of preservative-free normal saline to flush the steroid out of the needle. There was not any unusual discomfort expressed by Mr. Cervantes. (48 cc of Omnipaque was wasted) Mr. Cervantes's vital signs were stable throughout the procedure and were as recorded in nursing records. Follow up plans and appointments were discussed with Mr. Cervantes. The patient is set to follow up with Dr. Otero. Post procedure instruction was given as documented in nursing records and having met discharge criteria he was discharged from the Pain Management Center. Comments: Midline L3-4 lumbar interlaminar epidural steroid injection. If this procedure is successful in helping with pain and improving his function, it can be completed a maximum of 3 times every 12months. Yanet Ho MD I was the attending physician supervising the fellow in the above care and I was present with the fellow for the entire procedure. Chelly Motley MD [facility] [employer] Operator of Anesthesiology Replaced By [facility] [address] [phone] / [facility] CC: Talon Constantino MD [address] [place] [address] documented in this encounter Plan of Treatment Not on filedocumented as of this encounter Visit Diagnoses Diagnosis Spinal stenosis of lumbar region with ne urogenic claudication Spinal stenosis, lumbar region, with julissa rogenic claudication documented in this encounter
--- OUTSIDE RECORDS SUMMARY | 2020-09-05 03:26 | XMS_ITS | Encounter Summary ---
:1955 Author Organization [facility] Address [address] [place] [address] Care Team Providers Name Role Phone Virgen Constantino MD Primary Care Provider Encounter Details Date Type Department Care Team Description 05/17/2020 TH Visit Neurology at [facility] Leon Osuna Myositis, unspecified (TeleHealth) [facility] MD Valeria myositis type, Drive [facility] unspecified site [facility] [id number] NEUROLOGY DEPT. [phone] [place], [place] [address] [phone] Social History Tobacco Use Types Packs/Day Years Used Date Former Smoker Smokeless Tobacco: Never Used Comments: Quit in 2017 Alcohol Use Drinks/Week oz/Week Comments Not Currently 14-21 Cans of beer 14.0 - 21.0 1 beer a day Alcohol Habits Answer Date Recorded How often do you have a drink containing 4 or more times a w [place] 08/15/2019 alcohol? How many drinks containing alcohol do you have 1 or 2 08/15/2019 on a typical day when you are drinking? How often do you have six or more drinks on one Never 08/15/2019 occasion? 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 ??He was started on methotrexate and his CK has come down to normal range. Transaminases slightly elevated.?? Was very sick with pneumocystistis carni pneumonia in setting of imunosupression. Took valtrex for 10 days for shingles on the head. Taking gabapentin. Lots of head pain. Prednisone 10 mg. Tapering 2.5mg per week. Bactrim 3 tabs a week. No imunosuppresant agent at present. Weight over 220mg. Off MTX and cellcept. CK was 48 in early April. Almost off insulin. ?? He has lost a substantial amount of weight which she thinks is all muscle bulk. ??His weight is presently . ??He is taking prednisone and methotrexate. ??His liver functions are mildly elevated. Sugarshigh. ??He also has a lot of pain in his buttocks and hips and has had some intermittent numbness inhis legs and feet. ??If he tries to walk any distance he gets severe pain in the hips and buttocks and has to sit down. ??An MRI of his lumbar spine obtained yesterday shows severe central canal stenosis at L3-4 secondary to anterolisthesis disc bulge and facet arthropathy and a subarticular zone discextrusion at L5-S1 which abuts but does not displaced the traversing S1 nerve root. ?? He is severely limited in terms of lifting and crouching. Arms and legs have gotten smaller and weaker. Most recent pulmonary functions performed showed a forced vital capacity of 108%. ?? He is having to urinate 3 times at night and without the Flomax is much 6 times a night. ?? Radicular pain going down legs. Likely his spinal stenosis. Getting PT in [place]. Was to get anEDSI before he got PCP. ?? He is bright and alert with a normal mental status.??Voice normal. No further exam can be performed.?? EMG/NCVs: The sural sensory nerve action potential is of a mildly low amplitude. The motor responses are low amplitude. EMG showed some subtle active denervation in the S1 distribution bilaterally and some chronic changes in the L5 distribution bilaterally. The right vastus lateralis showed a decreased recruitment of 90%. These findings could be consistent with the patient's history of neurogenicclaudication and his MRI findings. ?? I will order a CT of the chest abdomen pelvis today in the setting of weight loss to be sure he doesnot have an occult malignancy. I will also order a paraneoplastic panel. ?? Dr. Otero saw patient and thought his weakness was a combination of myopathy and spinal stenosis. ?? I will see the patient back in about 4 to 6 weeks. documented in this encounter Plan of Treatment Not on filedocumented as of this encounter Visit Diagnoses Diagnosis Myositis, unspecified myositis type, uns pecified site documented in this encounter
--- OUTSIDE RECORDS SUMMARY | 2020-09-05 03:26 | XMS_ITS | Encounter Summary ---
:1955 Author Organization [facility] [place] [address] Care Team Providers Name Role Phone Virgen Constantino MD Primary Care Provider Reason for Visit Reason Onset Date Comments Appointment 08/21/2020 Encounter Details Date Type Department Care Team Description 08/21/2020 Telephone Neurology at [facility] Leon Osuna MD Appointment [facility] [place] [address] NEUROLOGY DEPT. [phone] [place], [place] [address] [phone] Social History Tobacco Use Types Packs/Day Years Used Date Former Smoker Smokeless Tobacco: Never Used Comments: Quit in 2017 Alcohol Use Drinks/Week oz/Week Comments Not Currently 14-21 Cans of beer 14.0 - 21.0 1 beer a day Alcohol Habits Answer Date Recorded How often do you have a drink containing 4 or more times a w [place] 08/15/2019 alcohol? How many drinks containing alcohol do you have 1 or 2 08/15/2019 on a typical day when you are drinking? How often do you have six or more drinks on one Never 08/15/2019 occasion? Sex Assigned at Date Recorded Not on file documented as of this encounter Miscellaneous Notes Telephone Encounter - Akanksha Levin - 08/21/2020 9:48 AM [facility] [place] Message - General Issue Call Provider patient sees in Clinic: Dr. Osuna Caller and relationship (if other than patient-full name): Patient Call back number: [phone] Ok to leave a message: yes Reason for call: Patient would like his 08/27/2020 appointment changed to a telephone appointment, patient declined myDH Video appointment and stated that he has done the phone appointments in the past. Please call patient to discuss scheduling. Disposition of Call (choose one and remove others): ? Routine message sent to General Office Worker: documented in this encounter Plan of Treatment Not on filedocumented as of this encounter Visit Diagnoses Not on filedocumented in this encounter
--- OUTSIDE RECORDS SUMMARY | 2020-09-05 03:26 | XMS_ITS | Encounter Summary ---
:1955 Author Organization [facility] [place] [address] Care Team Providers Name Role Phone Virgen Constantino MD Primary Care Provider Encounter Details Date Type Department Care Team Description 06/28/2020 Telephone Pain and Spine Orlin ayon at [facility] [place] [address] Social History Tobacco Use Types Packs/Day Years Used Date Former Smoker Smokeless Tobacco: Never Used Comments: Quit in 2017 Alcohol Use Drinks/Week oz/Week Comments Not Currently 14-21 Cans of beer 14.0 - 21.0 1 beer a day Alcohol Habits Answer Date Recorded How often do you have a drink containing 4 or more times a w [place] 08/15/2019 alcohol? How many drinks containing alcohol do you have 1 or 2 08/15/2019 on a typical day when you are drinking? How often do you have six or more drinks on one Never 08/15/2019 occasion? Sex Assigned at Date Recorded Not on file documented as of this encounter Miscellaneous Notes Telephone Encounter - Homer White RN - 06/28/2020 11:35 AM ADAMJeison Cervantes :1955 Contact made with patient: I spoke to Mr. Cervantes at 11:35 AM regarding his upcoming Neither lumbar epidural steroid injection scheduled on 07/04/2020 (date) scheduled at 0730 (time) with Dr. Chelly Motley MD. Medication and Allergy reconciliation: 1. Changes were made in the telephone encounter per patient; marked as reviewed, and closed. 2. Patient confirmed no IVP dye allergy. 3. Have you had any steroid injections anywhere in your body within the last two weeks? no Arrival time: The patient was instructed to arrive at 0700 (30 minutes prior to procedure start time - 60 minutes prior for RF patients with a pacemaker) on 07/04/2020 (date of procedure). Antibiotics/Skin assessment/Illness symptoms/Pain level assessment : 1. The patient confirmed that he is not taking antibiotics at this time. 2. The patient confirmed that he has notbeen in the emergency room in the last two weeks. 3.. The patient confirmed that he does not have any rashes, blisters, or skin breakdown on their body. 4. The patient confirmed that he does not have any active infections. 5. The patient confirmed that he and any household members have not had any symptoms of illness within the past 14 days: fever, chills, cold, flu, nausea, vomiting, diarrhea, shortness of breath, loss of taste, or recent stroke. 6. The patient confirmed that he is still experiencing significant pain. (Significant pain is defined as interfering with performing ADL.) 7. The patient confirmed that he have not been in contact with anyone known or suspected to have COVID-19. 8. The patient confirmed that he have not been suspected or tested for COVID-19 Pain and Anti-anxiety Medications: 1. Nerve Block Procedure Patients: Patient was instructed NOT to take their pain medications on theday of the procedure and anti-anxiety medications are part of their daily medication regiment; they can and should continue taking that medication. 2. All Other Procedure Patients: The patient was instructed that if they take daily pain or anti-anxiety medications, they can and should continue taking on the day of the procedure. Does patient have history of any diagnosed bleeding disorders: No Anticoagulants: Yes The patient confirmed that he discontinued taking his anticoagulant xarelto on 07/04/2020 (date). NSAIDs: Does the patient take Aspirin/ASA? No Does the patient take an NSAID? Yes The patient confirmed that he discontinued taking ibuprofen (Motrin) on 07/02/2020 (date). Diabetic instructions: Patient was advised to inform their PCP regarding safe fasting and the NPO requirements for their upcoming procedure and given the [facility] Nurse Triage Line . Implant: Patient has pacemaker/defibrillator: No WHAT TO EXPECT DAY OF PROCEDURE ? Patient will arrive at entrance and be screened (temp and symptoms) ? Patient will be given a mask; They are required to wear the mask appropriately (covering nose and mouth) the entire time that they are in the [facility] (Including during the procedure). If for some reason they feel that they will have difficulty with this, their procedure will have to be postponed. Prior to checking in at [employer] [employer] [facility], please be sure to empty your bladder. Patient confirmed understanding that if they do not follow the above instructions, their procedure is likely to be cancelled. DEBRA Coronel documented in this encounter Plan of Treatment Not on filedocumented as of this encounter Visit Diagnoses Not on filedocumented in this encounter
--- OUTSIDE RECORDS SUMMARY | 2020-09-05 03:26 | XMS_ITS | Encounter Summary ---
:1955 Author Organization [facility] Address [facility] [place] [address] Care Team Providers Name Role Phone Virgen Constantino MD Primary Care Provider Encounter Details Date Type Department Care Team Description 08/27/2020 Orders Only Rheumatology at [facility] Jh Dumont Myositis, [facility] MD [place] unspecified myositis [address] [facility] type, [place] [address] site [phone] RHEUMATOLOGY [place] [id number] [phone] Social History Tobacco Use Types Packs/Day Years Used Date Former Smoker Smokeless Tobacco: Never Used Comments: Quit in 2017 Alcohol Use Drinks/Week oz/Week Comments Not Currently 14-21 Cans of beer 14.0 - 21.0 1 beer a day Alcohol Habits Answer Date Recorded How often do you have a drink containing 4 or more times a w [place] 08/15/2019 alcohol? How many drinks containing alcohol do you have 1 or 2 08/15/2019 on a typical day when you are drinking? How often do you have six or more drinks on one Never 08/15/2019 occasion? Sex Assigned at Date Recorded Not on file documented as of this encounter Plan of Treatment Scheduled Orders Name Type Priority Associated Diagnoses Order S chedule CBC (with Diff) Lab Routine Myositis, unspecified Exp ected: 08/27/2020 myositis type, (Approximate) , unspecified site Expires: CK Lab Routine Myositis, unspecified Expect ed: 08/27/2020 myositis type, (Approximate) , unspecified site Expires: Comprehensive metabolic Lab Routine Myositis, unspeci fied Expected: 08/27/2020 panel (non-fasting) myositis type, (Appro ximate), unspecified site Expires: documented as of this encounter Visit Diagnoses Diagnosis Myositis, unspecified myositis type, uns pecified site documented in this encounter
--- OUTSIDE RECORDS SUMMARY | 2020-09-05 03:26 | XMS_ITS | Encounter Summary ---
:1955 Author Organization [facility] [place] [address] Care Team Providers Name Role Phone Virgen Constantino MD Primary Care Provider Encounter Details Date Type Department Care Team Description 04/20/2020 Telephone Rheumatology at [facility] Marilyn Fleming, [place] [address] Social History Tobacco Use Types Packs/Day Years Used Date Former Smoker Smokeless Tobacco: Never Used Comments: Quit in 2017 Alcohol Use Drinks/Week oz/Week Comments Not Currently 14-21 Cans of beer 14.0 - 21.0 1 beer a day Alcohol Habits Answer Date Recorded How often do you have a drink containing 4 or more times a w [place] 08/15/2019 alcohol? How many drinks containing alcohol do you have 1 or 2 08/15/2019 on a typical day when you are drinking? How often do you have six or more drinks on one Never 08/15/2019 occasion? Sex Assigned at Date Recorded Not on file documented as of this encounter Miscellaneous Notes Telephone Encounter - Marilyn Fleming RN - 04/20/2020 1:23 PM EDTJim RTC to Dr. Dumont today. Available @ [phone] signed by Marilyn Fleming RN at 04/20/2020 1:24 PM EDTdocumented in this encounter Plan of Treatment Not on filedocumented as of this encounter Visit Diagnoses Not on filedocumented in this encounter
--- OUTSIDE RECORDS SUMMARY | 2020-09-05 03:26 | XMS_ITS | Encounter Summary ---
:1955 Author Organization [facility] [place] [address] Care Team Providers Name Role Phone Virgen Constantino MD Primary Care Provider Encounter Details Date Type Department Care Team Description 08/07/2020 Orders Only Rheumatology at [facility] Jh Dumont V, [facility] [place] [address] [facility] [phone] RHEUMATOLOGY [place], [place] [address] [phone] Social History Tobacco Use Types Packs/Day Years Used Date Former Smoker Smokeless Tobacco: Never Used Comments: Quit in 2017 Alcohol Use Drinks/Week oz/Week Comments Not Currently 14-21 Cans of beer 14.0 - 21.0 1 beer a day Alcohol Habits Answer Date Recorded How often do you have a drink containing 4 or more times a w [place] 08/15/2019 alcohol? How many drinks containing alcohol [...]
--- OUTSIDE RECORDS SUMMARY | 2020-09-05 03:26 | XMS_ITS | Encounter Summary ---
:1955 Author Organization [facility] Address [address] [place] [address] Care Team Providers Name Role Phone Virgen Constantino MD Primary Care Provider Encounter Details Date Type Department Care Team Description 04/16/2020 Office Visit Rheumatology at [facility] Jh Dumont Myositis, [facility] MD [place] unspecified myositis [address] [facility] [place] [address] site (Primary Dx) [phone] RHEUMATOLOGY [place] [id number] [phone] Social History Tobacco Use Types Packs/Day Years Used Date Former Smoker Smokeless Tobacco: Never Used Comments: Quit in 2017 Alcohol Use Drinks/Week oz/Week Comments Not Currently 14-21 Cans of beer 14.0 - 21.0 1 beer a day Alcohol Habits Answer Date Recorded How often do you have a drink containing 4 or more times a w teller 08/15/2019 alcohol? How many drinks containing alcohol do you have 1 or 2 08/15/2019 on a typical day when you are drinking? How often do you have six or more drinks on one Never 08/15/2019 occasion? Sex Assigned at Date Recorded Not on file documented as of this encounter Last Filed Vital Signs Vital Sign Reading Time Taken Comments Blood Pressure 109/74 04/16/2020 9:07 AM EDT Pulse 119 04/16/2020 9:07 AM EDT Temperature 36 ??C (96.8 ??F) 04/16/2020 9:07 AM EDT Respiratory Rate - - Oxygen Saturation 96% 04/16/2020 9:07 AM EDT Inhaled Oxygen Concentration - - Weight 102 kg (224 lb 13.9 oz) 04/16/2020 9:07 AM EDT Height 181.6 cm (5' 11.5) 04/16/2020 9:07 AM EDT Body Mass Index 30.93 04/16/2020 9:07 AM EDT documented in this encounter Patient Instructions Patient InstructionsJh Dumont MD - 04/16/2020 9:30 AM EDT1) start decreasing your prednisone by 2.5mg every two weeks documented in this encounter Progress Notes Jh Dumont MD - 04/16/2020 9:30 AM EDTRheumatology Outpatient Follow Up Note PCP: Talon Constantino MD Jeison Cervantes is a 64 y.o. male who we are seeing for the continuing management of myositis. 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 - Then cramping in Left calf progressed to left thigh and over time to Rt leg- soreness and some weakness >?left shoulder. LE> UE?? - Was evaluated by Neurology in [place]- EMG was inconclusive- CK was up, 900. -??Not on??supplements, No??travel, infections, statins/niacin/fibrates/red yeast rice. 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 -??Evaluated by??neurology [facility] 2019-?? Negative??myositis panel, double-stranded DNA, rheumatoid factor, SSA, SSB.?Noted a positive MICHAEL of 1: 160. ??Also, CK elevated to 1012. ?? - Patient also underwent EMG nerve conduction studies with overall impression- Active denervation isconfined to Left Gastrocnemius muscle and no active EP evidence of Myopathic process. ?? - ??He also had an MRI of the thigh on 11/25/2018 that revealed myositis of multiple muscles in the bilateral calves more pronounced on the left than the right as well as presence of fatty infiltration of several left calf muscles indicating acute or chronic process with minimal fasciitis in the left lateral calf. - per neurology notation- Low suspicion noted for inclusion body myositis and or muscular dystrophy given no family history. ??Also, suspicion for mitochondrial disorders were low given stated that presentation later light in his last common. ??Anti-CM 1 a was obtained and was negative as well. ?? The patient underwent muscle biopsy on 12/16/[address] Leon esposito with biopsy site of the lowerextremity left. Per report Pathology was discussed with Dr. Basurto, ??path nondiagnostic but does show necrosing muscle fibers. ??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 ?? -??Neurology??started Rx for??Necrotizing myopathy.?? - Started on IV IG X 5 days in April 2019 And had 2 day infusion in ??May 2019. Patient received steroids with infusion in May. -??Patient reports he does not think IVIG helped, but IV steroids likely abated his symptoms. -??IV IG was also cost prohibitive, and hence did not want to continue IV IG. - Seen by??Neurology in Aug 2019 and was started on Prednisone taper starting at 30 mg PO daily and Cellcept 500 mg PO BID, the dose of which has been slowly up titrated in the past two months and currently up to 2000 mg PO daily. -??PFTs and TTE in the past year have been normal.?? - Some improvement in Symptoms and??temporal CK trending down. - Recurrence of muscle soreness and some weakness mostly in LE - Case presented in Muscle conference in November 2019 > Patient referred to Rheumatology - (11/2019) Pt established with Rheumatology - Baseline testing done- Started on MTX 15 mg weekly and Switched to Medrol 24 mg - (02/2020) Admitted for PJP pneumonia, briefly admitted to ICU for hypoxic respiratory failure and intubated for 2 days - D/C MMF, MTX and started on Prednisone for both myositis and PJP Interval History: Mr. 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 Fortunately he was recently admitted for hypoxic respiratory failure secondary to P LING pneumonia. He was briefly intubated for about 2 days and successfully extubated to nasalcannula oxygen. He was discharged to acute rehab and overall he reports that he has been starting to feel better since he has been discharged. He has been doing physical therapy 1 hour daily and has noticed a significant improvement in his strength and his ability to ambulate since he has been discharged. He is currently ambulating with the help of a walker and occasionally he is also able to use a cane to get around. He is currently on 20 mg of prednisone daily and Bactrim prophylaxis 3 times weekly and tolerating them both well. During the hospital admission both mycophenolate and methotrexate were discontinued given the BJP pneumonia. ROS (positives in bold): Gen: no fevers, no chills, no night sweats Pulm: no SOB CV: no CP Abd: no abd pain, no nausea, no vomiting, no diarrhea MSK: see HPI Meds and Allergies: Reviewed in eDH Physical exam: BP 109/74 Pulse (!) 119 Temp 36 ??C (96.8 ??F) (Temporal) Ht 181.6 cm (5' 11.5) Wt 102 kg (224 lb 13.9 oz) SpO2 96% BMI 30.93 kg/m?? Gen: well appearing, alert and oriented x 3, nad HEENT: moist mucous membranes, no oral ulcers, normal sclerae Lymph: no cervical LAD Heart: regular rate, no murmurs, rubs or gallops Lungs: clear to auscultation b/l Abd: soft, +bs, NT/ND Skin: warm and dry, no rheumatologic rashes Extremities: Shoulders: FROM, non-tender to palpation Elbows:FROM Wrists: FROM, no swelling, non-tender Hands: No synovitis, no MCP compression tenderness, full claw and fist Hips: FROM, no tenderness Knees: FROM, no effusion, no tenderness Ankles: FROM, non-tender, no effusion Feet: no MTP compression tenderness Labs/Studies: Reviewed. Assessment/Plan: 1) Undifferentiated Myositis/?Necrotizig Myositis Currently stable with nl CPK today. Overall his diagnosis is still not quite clear even after an extensive workup. With the addition of IVIG, MTX and MMF, his CPKs did improve although clinically he did not gain any relief from treatment and from his perspective, he continued to loose muscle tone and c ontinued to get weaker. Given the largely negative progress with the workup above, we will pursue a THIRD opinion. - Refer to Dr. Marrero at - will fax all pertinent info there - Check CBC, CMP, esr, crp, cpk today - follow up in 3 months Patient was discussed with Dr. Thee Dumont MD Rheumatology Fellow Pager: [phone] documented in this encounter Plan of Treatment Not on filedocumented as of this encounter Procedures Procedure Name Priority Date/Time Associated Comments Diagnosis HC C-REACTIVE PROTEIN Routine 04/16/2020 10:27 Myositis, Re sults for this AM EDT unspecified procedure are i n myositis type, the results unspecified site section. HEMOGRAM Routine 04/16/2020 10:27 Myositis, Results for this AM EDT unspecified procedure are i n myositis type, the results unspecified site section. DIFFERENTIAL, Routine 04/16/2020 10:27 Myositis, Results fo r this AUTOMATED AM EDT unspecified procedure are i n myositis type, the results unspecified site section. HC VENIPUNCTURE Routine 04/16/2020 10:27 Myositis, Results for this AM EDT unspecified procedure are i n myositis type, the results unspecified site section. HC CBC,PLT & AUTO DIFF Routine 04/16/2020 10:27 Myositis, AM EDT unspecified myositis type, unspecified site HC CREATINE Routine 04/16/2020 10:27 Myositis, Results for this PHOSPHOKINASE, SERUM AM EDT unspecified procedu re are in myositis type, the results unspecified site section. COMPREHENSIVE Routine 04/16/2020 10:27 Myositis, Results fo r this METABOLIC PANEL AM EDT unspecified procedure ar e in (NON-FASTING) myositis type, the results unspecified site section. documented in this encounter Results Differential, Automated (04/16/2020 10:27 AM EDT) Neutrophils % 68.3 % [facility] Neutr Abs (ANC) 5.89 1.70 - 6.10 [facility] x10(3)/[facility] LABORATORY Lymphocytes % 18.3 % [facility] Lymphocytes Abs 1.6 0.9 - 3.2 [facility] x10(3)/[facility] LABOR[facility]ORY Monocytes % 11.7 % [facility] Monocyte Abs 1.0 (H) 0.3 - 0.9 [facility] x10(3)/[facility] LABORATORY Eosinophils % 0.3 % [facility] Eosinophils Abs 0.0 0.0 - 0.4 [facility] x10(3)/[facility]OR[facility] Basophils % 0.8 % [facility] Basophils Abs 0.1 0.0 - 0.1 [facility] x10(3)/[facility] LABORATORY Immature Gran % 0.60 % [facility] Comment: [facility] Immature granulocytes(IG's)percentage and absolu te count will include LABORATORY metamyelocytes, myelocytes, and promyelo cytes. Blood smears from CBCs yielding IG's will be scanned manually for concor dance. If this scan disagrees with the automated IG or if promyelocytes are noted, a manual d ifferential will be performed. Jessica Gran Abs 0.05 (H) 0.00 - 0.04 [place] [id number](3)/[facility] LABORATORY Specimen Blood Resulting Agency Comment Spec In Lab Performing Organization Address City/State/Zipcode Phone Number [place] [phone] [facility] Hemogram (04/16/2020 10:27 AM EDT) Pathologist Sig nature WBC 8.6 4.0 - 9.5 [facility] x10(3)/[facility] LABORATORY RBC 4.21 (L) 4.58 - 5.54 [facility] x10(6)/[facility]OR[facility]ORY Hemoglobin 13.2 (L) 13.7 - 16.5 gm/dL [facility] Hematocrit 42.0 40.5 - 48.5 % [facility] MCV 99.8 (H) 82.9 - 93.1 fL [facility] MCH 31.4 27.5 - 32.1 pg [facility] MCHC 31.4 (L) 32.0 - 35.7 gm/dL [facility] Platelets 261 145 - 357 [facility] x10(3)/[facility] LABORATORY RDWSD 52.4 (H) 36.0 - 45.0 fL [facility] RDWCV 14.5 (H) 11.4 - 13.8 % [facility] MPV 9.1 7.6 - 12.9 fL [facility] nRBC % Auto 0.0 % [facility] nRBC Abs Auto 0.000 0.000 - 0.000 [facility] x10(3)/[facility] LABORATORY Specimen Blood Resulting Agency Comment Spec In Lab Performing Organization Address City/[facility] Centercode Phone Number [address] LABORATORY Sedimentation rate (04/16/2020 10:27 AM EDT) Pathologist Sig nature Sed Rate 59 (H) 2 - 37 mm/hr [facility] Comment: [facility] Effective August 24, 2019 new capillary photom etric technology has resulted LABORATORY in a change in reference ranges. It is recommended moni t each ESR result be reviewed with its own age appropriate reference range. Specimen Blood Resulting Agency Comment Spec In Lab Performing Organization Address [facility] Centercotn Phone Number [address] LABORATORY CRP, acute inflammation (04/16/2020 10:27 AM EDT) Pathologist Sig nature CRP 3.0 <=4.9 mg/L [facility] Specimen Blood Resulting Agency Comment Spec In Lab Performing Organization Address [facility] Phone Number [address] LABORATORY Comprehensive metabolic panel (non-fasting) (04/16/2020 10:27 AM EDT) Glucose Lvl 108Comment: Diabetes: 65 - 199 [facility] >=200 mg/dL plus mg/dL [facility] symptoms LABORATORY BUN 11 10 - 20 [facility] mg/dL [facility] Creatinine 0.64 (L) 0.80 - 1.50 [facility] [place] mg/dL [facility] Sodium 141 135 - 145 [facility] [place] mmol/L [facility] Potassium 3.7 3.5 - 5.0 [facility] Comment: mmol/L [facility] Please note: ??Patients with WBC >100,000 may welch ve falsely elevated Potassium LABORATORY levels. ??For accurate Potassium quantification in the se patients send serum separator tube (gold top) fo r subsequent determinations. ??Contact the Clinical Chemistry Laboratory if there are any questions. Chloride 102 98 - 107 [facility] [place] mmol/L [facility] CO2 25 22 - 31 [facility] [place] mmol/L [facility] Anion Gap 14 5 - 15 [facility] [place] mmol/L [facility] Calcium 9.6 8.5 - 10.5 [facility] [place] mg/dL [facility] Total Protein 6.5 6.1 - 8.0 [facility] [place] gm/dL [facility] Albumin 4.0 3.2 - 5.2 [facility] [place] gm/dL [facility] AST 14 0 - 39 [facility] [place] unit/L [facility] ALT 31 0 - 55 [facility] [place] unit/L [facility] Alk Phos 46 40 - 130 [facility] [place] unit/L [facility] Total Bilirubin 0.2 0.2 - 1.3 [facility] [place] mg/dL [facility] Estimated GFR 103 >=60 [facility] Comment: mL/min/1.73 [facility] The eGFR was calculated using the CKD-EPI equati on. As with all creatinine m?? LABORATORY based estimates of kidney function, eGFR values calcul ated with the CKD-EPI equation are not accurate in patients with acute kidne y failure, extremes of body mass or the acutely ill. http://[employer]/[facility] eGFR 120 >=60 [facility] [employer] Comment: mL/min/1.73 [facility] The eGFR was calculated using the CKD-EPI equati on. As with all creatinine m?? LABORATORY based estimates of kidney function, eGFR values calcul ated with the CKD-EPI equation are not accurate in patients with acute kidne y failure, extremes of body mass or the acutely ill. http://[employer]/[facility] Specimen Blood Resulting Agency Comment Spec In Lab Performing Organization Address City/[facility]/Zipcode Phone Number [place], [place] [address] [facility] CK (04/16/2020 10:27 AM EDT) Pathologist Sig nature CK, Total 48 0 - 200 unit/L [facility] Specimen Blood Resulting Agency Comment Spec In Lab Performing Organization Address City/[facility] Centercode Phone Number [place], [place] [address] [facility] documented in this encounter Visit Diagnoses Diagnosis Myositis, unspecified myositis type, uns pecified site - Primary documented in this encounter
--- OUTSIDE RECORDS SUMMARY | 2020-09-05 03:26 | XMS_ITS | Encounter Summary ---
:1955 Author Organization [facility] [place] [address] Care Team Providers Name Role Phone Virgen Constantino MD Primary Care Provider Reason for Visit Reason Onset Date Comments Medication Refill 08/27/2020 Encounter Details Date Type Department Care Team Description 08/27/[address] [facility] Erik Rai, [place] [address] Social History Tobacco Use Types Packs/Day Years Used Date Former Smoker Smokeless Tobacco: Never Used Comments: Quit in 2017 Alcohol Use Drinks/Week oz/Week Comments Not Currently 14-21 Cans of beer 14.0 - 21.0 1 beer a day Alcohol Habits Answer Date Recorded How often do you have a drink containing 4 or more times a w [place] 08/15/2019 alcohol? How many drinks containing alcohol [...]
--- OUTSIDE RECORDS SUMMARY | 2020-09-05 03:26 | XMS_ITS | Encounter Summary ---
:1955 Author Organization [facility] [place] [address] Care Team Providers Name Role Phone Virgen Constantino MD Primary Care Provider Reason for Visit Auth/Cert Status Reason Specialty Diagnoses / Procedures Referred By C ontact Referred To Contact Diagnoses 000 Procedures PRO INJECTION DX/THER SBST INTRLMNR LMBR/SAC W/IMG GDN INJECTION, EPIDURAL, LUMBAR OR SACRAL (CAUDAL), WITH IMAGING GUIDANCE (WRVU 1.8) Encounter Details Date Type Department Care Team Description 07/03/2020 Ancillary Procedure Pain Management Sa rosalind Morejon MD [facility] [place] [address] [place] [address] [phone] Social History Tobacco Use Types Packs/Day Years Used Date Former Smoker Smokeless Tobacco: Never Used Comments: Quit in 2017 Alcohol Use Drinks/Week oz/Week Comments Not Currently 14-21 Cans of beer 14.0 - 21.0 1 beer a day Alcohol Habits Answer Date Recorded How often do you have a drink containing 4 or more times a w [place] 08/15/2019 alcohol? How many drinks containing alcohol [...] encounter Procedures Procedure Name Priority Date/Time Associated Diagnosis Comme nts FILM LIBRARY Routine 07/04/2020 3:34 PM Pain Results for this STORAGE ONLY PAIN EDT procedure are in [facility] the results section. documented in this encounter Results Film Library- Storage Only pain Clinic [facility] (07/04/2020 3:34 PM EDT) Specimen Narrative Performed At See PACS for result report. [facility] Performing Organization Address City/State/Zipcode Phone Number [facility] [place], [place] documented in this encounter Visit Diagnoses Diagnosis Pain Generalized pain documented in this encounter
--- OUTSIDE RECORDS SUMMARY | 2020-09-05 03:26 | XMS_ITS | Encounter Summary ---
:1955 Author Organization [facility] Address [facility] [address] [place] [id number] Care Team Providers Name Role Phone Virgen Constantino MD Primary Care Provider Reason for Referral Physical Therapy (Routine) Status Reason Specialty Diagnoses / Referred By Referred To Procedures Contact Contact Closed Evaluate and Diagnoses Myositis, unspecified myositis type, unspecified site Julia, Tom Treat Antelmo Jay None [facility] RHEUMATOLOGY DE PT [place] [address] 56 Encounter Details Date Type Department Care Team Description 07/16/2020 Office Visit Rheumatology at [facility] Jh Dumont Myositis, [facility] MD [place] [address] [facility] type, [place] [address] site (Primary Dx) [phone] RHEUMATOLOGY [place] [id number] 6 [phone] Social History Tobacco Use Types Packs/Day Years Used Date Former Smoker Smokeless Tobacco: Never Used Comments: Quit in 2017 Alcohol Use Drinks/Week oz/Week Comments Not Currently 14-21 Cans of beer 14.0 - 21.0 1 beer a day Alcohol Habits Answer Date Recorded How often do you have a drink containing 4 or more times a w [place] 08/15/2019 alcohol? How many drinks containing alcohol do you have 1 or 2 08/15/2019 on a typical day when you are drinking? How often do you have six or more drinks on one Never 08/15/2019 occasion? Sex Assigned at Date Recorded Not on file documented as of this encounter Last Filed Vital Signs Vital Sign Reading Time Taken Comments Blood Pressure 100/73 07/16/2020 8:50 AM EST Pulse 88 07/16/2020 8:50 AM EST Temperature 36.3 ??C (97.4 ??F) 07/16/2020 8:50 AM EST Respiratory Rate - - Oxygen Saturation 98% 07/16/2020 8:50 AM EST Inhaled Oxygen Concentration - - Weight 108.9 kg (240 lb) 07/16/2020 8:50 AM EST Height 181.6 cm (5' 11.5) 07/16/2020 8:50 AM EST Body Mass Index 33.01 07/16/2020 8:50 AM EST documented in this encounter Progress Notes Jh Dumont MD - 07/16/2020 9:00 AM ESTRheumatology Outpatient Follow Up Note PCP: Talon Constantino MD Jeison Cervantes is a 64 y.o. male who we are seeing for the continuing management of Myositis. 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 - Then cramping in Left calf progressed to left thigh and over time to Rt leg- soreness and some weakness >?left shoulder. LE> UE?? - [place] EMG was inconclusive- CK was up, 900. -??Not on??supplements, No??travel, infections, statins/niacin/fibrates/red yeast rice. 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 -??Evaluated by??neurology [facility] 2018-?? Negative??myositis panel, double-stranded DNA, rheumatoid factor, SSA, [...] November 2019 > Patient referred to Rheumatology ?? - (11/2019) Pt established with Rheumatology - Baseline testing done- Started on MTX 15 mg weekly and Switched to Medrol 24 mg ?? - (02/2020) Admitted for PJP pneumonia, briefly admitted to ICU for hypoxic respiratory failure and intubated for 2 days - D/C MMF, MTX and started on Prednisone for both myositis and PJP - (07/2020) Tapered off of prednisone completely. CPK increased to 569 Interval History: Mr. Cervantes is a 64-year-old male the presents for follow-up for undifferentiated myositis. Overall he reports that he is feeling well and has been feeling well since he has been tapered off of prednisone completely. He has remained off of prednisone for approximately 2 months now and has not notice d any increase in weakness, fatigue, decrease in strength. He has noted his strength has been gradually increasing and he has not noticed any decrease in strength since coming off of prednisone. He has been able to participate in physical therapy and continues to do so to the best of his ability. He is experiencing some bilateral shoulder, hip and bilateral knee pain which he never previously experienced. He is also been experiencing bilateral lower extremity swelling left greater than right which has been ongoing for the past several months. He has used compression stockings which seem to improve the swelling slightly along with Lasix as needed. ROS (positives in bold): Gen: no fevers, no chills, no night sweats Pulm: no SOB CV: no CP Abd: no abd pain, no nausea, no vomiting, no diarrhea MSK: see HPI Meds and Allergies: Reviewed in eDH Physical exam: BP 100/73 Pulse 88 Temp 36.3 ??C (97.4 ??F) (Temporal) Ht 181.6 cm (5' 11.5) Wt 108.9 kg (240 lb) SpO2 98% BMI 33.01 kg/m?? Gen: well appearing, alert and oriented x 3, nad HEENT: moist mucous membranes, no oral ulcers, normal sclerae Heart: regular rate, no murmurs, rubs or gallops Lungs: clear to auscultation b/l Skin: warm and dry, no rheumatologic rashes Joints: normal ROM throughout the upper and lower extremity joints, no synovitis or tenderness in the hands, wrists,elbows, shoulders, knees, ankles and feet 2+ left lower extremity pitting edema up to the knee, 1+ right lower extremity edema up to the knee Labs/Studies: Reviewed CBC and CMP today along with CPK which was 569 Assessment/Plan: 1) Undifferentiated Myositis Clinically seems to be stable although his CPK have increased to 569 today. He has not experienced any increase in weakness or muscle cramps. He has been participating in home physical therapy which seems to be helping. - Given the slight increase in CPK, we will repeat cpk in 2 weeks to monitor - since we don't have a clear diagnosis, we may repeat some of the workup including bilateral lower extremity MRI to evaluate for myositis for another biopsy - continue to monitor off of prednisone - depending on progression, we may consider re starting DMARDS including azathioprine Patient was discussed with Dr. Thee Dumont MD Rheumatology Fellow Pager: [phone] documented in this encounter Plan of Treatment Scheduled Referrals Name Type Priority Associated Diagnoses Order S chedule Referral to Outpatient Referral Routine Myositis, unspecified Ordered: Physical Therapy myositis type, 0 unspecified site documented as of this encounter Procedures Procedure Name Priority Date/Time Associated Comments Diagnosis HC THYROID STIMULATING Routine 07/16/2020 10:21 Myositis, R esults for this HORMONE, SERUM AM EST unspecified procedure are in myositis type, the results unspecified site section. HC VENIPUNCTURE Routine 07/16/2020 10:21 Myositis, Results for this AM EST unspecified procedure are i n myositis type, the results unspecified site section. COMPREHENSIVE Routine 07/16/2020 10:21 Myositis, Results fo r this METABOLIC PANEL AM EST unspecified procedure ar e in (NON-FASTING) myositis type, the results unspecified site section. documented in this encounter Results TSH (07/16/2020 10:21 AM EST) Pathologist Sig nature TSH 3.19 0.27 - 4.20 mcIU/mL [facility] Specimen Blood Resulting Agency Comment Spec In Lab Performing Organization Address City/State/Zipcode Phone Number [address] LABORATORY Comprehensive metabolic panel (non-fasting) (07/16/2020 10:21 AM EST) Glucose Lvl 112Comment: Diabetes: 65 - 199 [facility] >=200 mg/dL plus mg/dL [facility] symptoms LABORATORY BUN 17 10 - 20 [facility] mg/dL [facility] Creatinine 1.00 0.80 - 1.50 [facility] mg/dL [facility] Sodium 141 135 - 145 [facility] mmol/L [facility] Potassium 4.3 3.5 - 5.0 [facility] Comment: mmol/L [facility] Please note: ??Patients with WBC >100,000 may welch ve falsely elevated Potassium LABORATORY levels. ??For accurate Potassium quantification in the se patients send serum separator tube (gold top) fo r subsequent determinations. ??Contact the Clinical Chemistry Laboratory if there are any questions. Chloride 104 98 - 107 [facility] mmol/L [facility] CO2 27 22 - 31 [facility] mmol/L [facility] Anion Gap 10 5 - 15 [facility] mmol/L [facility] Calcium 9.9 8.5 - 10.5 [facility] mg/dL [facility] Total Protein 7.1 6.1 - 8.0 [facility] gm/dL [facility] Albumin 4.5 3.2 - 5.2 [facility] gm/dL [facility] AST 31 0 - 39 [facility] unit/L [facility] ALT 28 0 - 55 [facility] unit/L [facility] Alk Phos 52 40 - 130 [facility] unit/L [facility] Total Bilirubin 0.4 0.2 - 1.3 [facility] mg/dL [facility] Estimated GFR 79 >=60 [facility] Comment: mL/min/1.73 [facility] The eGFR was calculated using the CKD-EPI equati on. As with all creatinine m?? LABORATORY based estimates of kidney function, eGFR values calcul ated with the CKD-EPI equation are not accurate in patients with acute kidne y failure, extremes of body mass or the acutely ill. [email or web address]/[facility]kSpout eGFR 92 >=60 [facility] [place] Comment: mL/min/1.73 [facility] The eGFR was calculated using the CKD-EPI equati on. As with all creatinine m?? LABORATORY based estimates of kidney function, eGFR values calcul ated with the CKD-EPI equation are not accurate in patients with acute kidne y failure, extremes of body mass or the acutely ill. http://Tacatì/[facility]Ankf Specimen Blood Resulting Agency Comment Spec In Lab Performing Organization Address City/State/Zipcode Phone Number [address] LABORATORY CK (07/16/2020 10:21 AM EST) Pathologist Sig nature CK, Total 569 (H) 0 - 200 unit/L [facility] Specimen Blood Resulting Agency Comment Spec In Lab Performing Organization Address City/State/Zipcode Phone Number [address] LABORATORY documented in this encounter Visit Diagnoses Diagnosis Myositis, unspecified myositis type, uns pecified site - Primary documented in this encounter
--- OUTSIDE RECORDS SUMMARY | 2020-09-05 03:26 | XMS_ITS | Encounter Summary ---
:1955 Author Organization [facility] Address [facility] [address] [place] [id number] Care Team Providers Name Role Phone Virgen Constantino MD Primary Care Provider Reason for Referral Physical Therapy (Routine) Status Reason Specialty Diagnoses / Referred By Referred To Procedures Contact Contact Authorized Evaluate and Diagnoses Myositis, unspecified myositis type, unspecified site Thuy Dumont M D [facility] RHEUMATOLOGY DE PT [place] [address] 56 Encounter Details Date Type Department Care Team Description 07/17/2020 Orders Only Rheumatology at [facility] Jh Dumont Myojennietis, [facility] MD [place] [address] [facility] type, [place] [address] site [phone] RHEUMATOLOGY [place] [address] [phone] Social History Tobacco Use Types Packs/Day Years Used Date Former Smoker Smokeless Tobacco: Never Used Comments: Quit in 2017 Alcohol Use Drinks/Week oz/Week Comments Not Currently 14-21 Cans of beer 14.0 - 21.0 1 beer a day Alcohol Habits Answer Date Recorded How often do you have a drink containing 4 or more times a w [place] 08/15/2019 alcohol? How many drinks containing alcohol do you have 1 or 2 08/15/2019 on a typical day when you are drinking? How often do you have six or more drinks on one Never 08/15/2019 occasion? Sex Assigned at Date Recorded Not on file documented as of this encounter Plan of Treatment Scheduled Orders Name Type Priority Associated Diagnoses Order S chelulu Comprehensive metabolic Lab Routine Myositis, unspeci fied Expected: 07/31/2020 panel (non-fasting) myositis type, (Appro ximate), unspecified site Expires: CK Lab Routine Myositis, unspecified Expect ed: 07/31/2020 myositis type, (Approximate) , unspecified site Expires: Scheduled Referrals Name Type Priority Associated Diagnoses Order S chelulu Referral to Outpatient Referral Routine Myositis, unspecified Ordered: Physical Therapy myositis type, 0 unspecified site documented as of this encounter Visit Diagnoses Diagnosis Myositis, unspecified myositis type, uns pecified site documented in this encounter
--- OUTSIDE RECORDS SUMMARY | 2020-09-05 03:26 | XMS_ITS | Encounter Summary ---
:1955 Author Organization [facility] [place] [address] Care Team Providers Name Role Phone Virgen Constantino MD Primary Care Provider Encounter Details Date Type Department Care Team Description 04/11/2020 Telephone Rheumatology at [facility] Ar[facility]aga [facility] [place] [address] Social History Tobacco Use Types Packs/Day Years Used Date Former Smoker Smokeless Tobacco: Never Used Comments: Quit in 2017 Alcohol Use Drinks/Week oz/Week Comments Not Currently 14-21 Cans of beer 14.0 - 21.0 1 beer a day Alcohol Habits Answer Date Recorded How often do you have a drink containing 4 or more times a w [place] 08/15/2019 alcohol? How many drinks containing alcohol do you have 1 or 2 08/15/2019 on a typical day when you are drinking? How often do you have six or more drinks on one Never 08/15/2019 occasion? Sex Assigned at Date Recorded Not on file documented as of this encounter Miscellaneous Notes Telephone Encounter - Keya Arteaga - 04/11/2020 9:46 AM EDTLm for pt to call ans schedule a fuv within the next [address] patterson. sending letter documented in this encounter Plan of Treatment Not on filedocumented as of this encounter Visit Diagnoses Not on filedocumented in this encounter
--- OUTSIDE RECORDS SUMMARY | 2020-09-05 03:26 | XMS_ITS | Encounter Summary ---
:1955 [place] [address] Care Team Providers Name Role Phone Virgen Constantino MD Primary Care Provider Reason for Visit Auth/Cert Status Reason Specialty Diagnoses / Procedures Referred By C ontact Referred To Contact Diagnoses 000 Procedures PRO INJECTION DX/THER SBST INTRLMNR LMBR/SAC W/IMG GDN INJECTION, EPIDURAL, LUMBAR OR SACRAL (CAUDAL), WITH IMAGING GUIDANCE (WRVU 1.8) Encounter Details Date Type Department Care Team Description 07/04/2020 Surgery Pain Management Chelly Morejon MD INJECTION, EPIDURAL, [facility] LUM BAR OR [facility] (CAUDAL), WITH IMAGING [facility] PAIN MANAGEME NT GUIDANCE (WRVU 1.8) [place] [id number] [place] [address] [phone] Social History Tobacco Use Types Packs/Day Years Used Date Former Smoker Smokeless Tobacco: Never Used Comments: Quit in 2017 Alcohol Use Drinks/Week oz/Week Comments Not Currently 14-21 Cans of beer 14.0 - 21.0 1 beer a day Alcohol Habits Answer Date Recorded How often do you have a drink containing 4 or more times a w [place] 08/15/2019 alcohol? How many drinks containing alcohol [...] Take 4 tablets by 120 tablet 3 11/201908/30/2020 mg Tablet mouth daily. sulfamethoxazole-trimetho Take 4 [...] 2.35) performed by Leon Osuna MD at [facility] ALLERGIES: Cat dander; Dog dander; [...] D3,) 50 mcg (2,000 unit) Capsule Take byakuth. ??? folic acid (Folvite) 1 mg Tablet [...] file Gets together: Not on file Attends zoroastrianism service: Not on file Active member of [...] proceed. Yanet Ho MD Pain Management Fellow [address] [address] / [facility] documented in this encounter Miscellaneous Notes Op Note - Chelly Motley MD - 07/04/2020 8:14 AM EDTPain Management Operative Note Patient Name: Jeison Cervantes : [id number] MR#: [id number] Case Date: 07/04/2020 Surgeon: Surgeon(s) and Role: * Chelly Motley MD - Primary Yanet Ho MD - Fellow Present on Admission: ??? Spinal stenosis of lumbar region Postoperative diagnosis: same Procedure(s) (LRB): INJECTION, EPIDURAL, LUMBAR OR SACRAL (CAUDAL), WITH IMAGING GUIDANCE (WRVU 1.8) (N/A) LUMBAR INTERLAMINAR EPIDURAL STERIOID INJECTION PROCEDURE NOTE Mr. Jeison Cervantes has been referred to the [facility] for a lumbar epidural steroid injection by Talon Constantino MD [address] [place] [address] 1 [place] [address]. The patient complains of low back pain [...] procedure. Chelly Motley MD [facility] Management [facility] Agent of Anesthesiology [facility] [employer] [address] [address] / [facility] CC: Talon Constantino MD [address] [address] documented in this encounter Plan of Treatment Not on filedocumented as of this encounter Visit Diagnoses Not on filedocumented in this encounter Administered Medications Inactive Administered Medications - up to 3 most recent administrations Medication Order MAR Action Action Date Dose Rate Site iohexoL (OMNIPAQUE) 240 mg/mL Given 07/04/2020 8:03 AM EDT 1 mL solution ONCE PRN, Starting Thu07/04/20 at 0803, Until Thu07/04/20 at 1018, Intra-Operative (Intra-Procedure), Routine lidocaine (PF) (Xylocaine) 1% (10 mg/mL) Given 07/04/2020 8:04 AM EDT 2 mLs injection ONCE PRN, Starting Thu07/04/20 at 0804, Until Thu07/04/20 at 1018, Intra-Operative (Intra-Procedure), Routine methylPREDNISolone acetate (DEPO-Medrol) (40 Given 8:04 AM EDT 40 mg mg/mL) injection ONCE PRN, Starting Thu07/04/20 at 0804, Until Thu07/04/20 at 1018, Intra-Operative (Intra-Procedure), Routine documented in this encounter
--- OUTSIDE RECORDS SUMMARY | 2020-09-05 03:26 | XMS_ITS | Encounter Summary ---
:1955 Author Organization [facility] Address [facility] [place] [address] Care Team Providers Name Role Phone Virgen Constantino MD Primary Care Provider Reason for Referral Consultation (Routine) Status Reason Specialty Diagnoses / Referred By Referred To Procedures Contact Contact Authorized Consult, Test Diagnoses Myositis, unspecified myositis type, unspecified site Elida Dumont [facility] Antelmo Jay MD [address] [address] [place], [place] [address] Phone: Fax: Encounter Details Date Type Department Care Team Description 03/22/2020 Orders Only Rheumatology at [facility] Jh Dumont Myositis, [facility] MD [place] [address] [facility] type, [place] [address] site [phone] RHEUMATOLOGY [place], [place] [address] [phone] Social History Tobacco Use Types Packs/Day Years Used Date Former Smoker Smokeless Tobacco: Never Used Comments: Quit in 2017 Alcohol Use Drinks/Week oz/Week Comments Not Currently 14-21 Cans of beer 14.0 - 21.0 1 beer a day Alcohol Habits Answer Date Recorded How often do you have a drink containing 4 or more times a w [place] 08/15/2019 alcohol? How many drinks containing alcohol do you have 1 or 2 08/15/2019 on a typical day when you are drinking? How often do you have six or more drinks on one Never 08/15/2019 occasion? Sex Assigned at Date Recorded Not on file documented as of this encounter Plan of Treatment Scheduled Referrals Name Type Priority Associated Diagnoses Order S chedule Referral to Outpatient Referral Routine Myositis, Ordered: Rheumatology unspecified myositis 020 type, unspecified site documented as of this encounter Visit Diagnoses Diagnosis Myositis, unspecified myositis type, uns pecified site documented in this encounter
--- OUTSIDE RECORDS SUMMARY | 2020-09-05 03:26 | XMS_ITS | Encounter Summary ---
:1955 Author Organization [facility] [place] [address] Care Team Providers Name Role Phone Virgen Constantino MD Primary Care Provider Reason for Visit Reason Onset Date Comments TeleHealth 05/15/2020 Appt 05/16/20 Encounter Details Date Type Department Care Team Description 05/15/[address] [facility] Leon Osuna, TeleHealth (Appt [facility] 05/16/20) [place] [address] NEUROLOGY DEPT. [place], [place] [address] [phone] Social History Tobacco Use Types Packs/Day Years Used Date Former Smoker Smokeless Tobacco: Never Used Comments: Quit in 2017 Alcohol Use Drinks/Week oz/Week Comments Not Currently 14-21 Cans of beer 14.0 - 21.0 1 beer a day Alcohol Habits Answer Date Recorded How often do you have a drink containing 4 or more times a w [place] 08/15/2019 alcohol? How many drinks containing alcohol do you have 1 or 2 08/15/2019 on a typical day when you are drinking? How often do you have six or more drinks on one Never 08/15/2019 occasion? Sex Assigned at Date Recorded Not on file documented as of this encounter Miscellaneous Notes Telephone Encounter - Kamala Chawla CMA - 05/15/2020 10:38 AM EDTDid not speak with patient to review medications and allergies prior to upcoming tele- appointment scheduled with Neurology provider. Could not reach patient. documented in this encounter Plan of Treatment Not on filedocumented as of this encounter Visit Diagnoses Not on filedocumented in this encounter
--- OUTSIDE RECORDS SUMMARY | 2020-09-05 03:26 | XMS_ITS | Clinical Summary ---
:1955 Author Organization [facility] Address [address] [place] [address] Care Team Providers Name Role Phone Virgen Constantino MD Primary Care Provider Allergies Active Allergy Reactions Severity Noted Date Comments Cat Dander 10/26/2018 Dog Dander 10/26/2018 Grass Pollen-[place], Standard 10/26/2018 Medications Medication Sig Dispensed Refills Start Date End Date Status ibuprofen Take 400 mg by 0 Activ e (ADVIL;MOTRIN) 400 mg mouth every 6 Tablet hours as needed for Pain. tamsulosin (FLOMAX) Take 0.8 mg by 0 Active 0.4 mg Capsule mouth daily. Xarelto 20 mg Tablet Take 20 mg by 0 10/16/2019 Active mouth daily. finasteride (Proscar) Take 5 mg by mouth 0 Active 5 mg Tablet daily. magnesium 250 mg Take 500 mg by 0 Active Tablet mouth daily. simethicone (Mylicon) Take 0.5 tablets 30 tablet 0 03/22/2020 Active 80 mg Tablet, Chewable by mouth every 6 hours as needed. Additional Information Patient not taking. Reported on 04/16/2020 9:16 AM polyethylene glycoL (Miralax) Take 17 g by mouth 2 14 each 0 03/22/2020 Active 17 gram Powder in Packet times daily as needed. Additional Information Patient not taking. Reported on 04/16/2020 9:16 AM senna-docusate (Pericolace) Take 2 tablets by 60 tablet 11 07/05/2020 Active 8.6-50 mg Tablet mouth 2 times daily. Hold for loose stools Additional Information Patient not taking. Reported on 04/16/2020 9:16 AM insulin lispro (HumaLOG) Give QAC and QHS; BG 140 - 12 03/22/2020 Active Solution 160 Give 3 units, BG 161 - 200 Give 6 units, BG 201 - 240 Give 9 units, BG >240, give 12 units Additional Information Patient not taking. Reported on 08/24/2020 10:01 AM pantoprazole EC (Protonix) 40 Take 1 tablet by mouth 90 tablet 3 03/22/2020 Active mg Tablet, Delayed Release daily. (E.C.) Additional Information Patient not taking. Reported on 04/16/2020 9:16 AM furosemide (Lasix) 20 mg daily. 0 06/29/2020 Active 20 mg Tablet calcium Take 1 tablet 0 Active carbonate/vitamin D3 by mouth 2 (CALCIUM + D ORAL) times daily. melatonin 10 mg Take 10 mg by 0 Active Tablet mouth nightly. azaTHIOprine Take 2 tablets 60 tablet 3 08/30/2020 A ctive (Imuran) 50 mg by mouth daily. Tablet folic acid (Folvite) Take 1 tablet 90 tablet 3 12/05/201908/14 Discontinued (No 1 mg Tablet by mouth daily. 020 lo nger taking) sulfamethoxazole-tri Take 4 tablets 60 tablet 0 03/30/202031/10 Discontinued (No methoprim DS by mouth three 020 lo nger taking) (Bactrim DS) 800-160 times a week. mg Tablet predniSONE Take 4 tablets 120 tablet 3 04/16/2020 Di scontinued (No (Deltasone) 5 mg by mouth daily. 020 longer taking) Tablet gabapentin 200 mg 2 times 0 05/20/2020 Dis continued (No (Neurontin) 100 mg daily. 020 l onger taking) Capsule azaTHIOprine Take 1 tablet 30 tablet 0 08/07/2020 Di scontinued (Imuran) 50 mg by mouth daily. 020 (Reorder) Tablet azaTHIOprine Take 1 tablet 30 tablet 0 08/27/2020 Di scontinued (Imuran) 50 mg by mouth daily. 020 Tablet Active Problems Problem Noted Date Acute hypoxemic respiratory failure 03/08/2020 Spinal stenosis of lumbar region 02/09/2020 Muscle weakness of lower extremity 12/31/2018 Venous insufficiency of left lower extremity 8 Asymptomatic varicose veins of left lower extremity Encounters Date Type Specialty Care Team Description 08/30/2020 Orders Only Rheumatology Jh Dumont MD 08/28/2020 TH Visit Neurology Leon Osuna Necrotizi ng (TeleHealth) MD montanez 08/27/2020 Refill Rheumatology Erik Rai RN 08/27/2020 Orders Only Rheumatology Miranda Dumont Vishnuteja V, MD unspecified myositis type, unspecified sit e 08/24/2020 Telephone Neurology Leon Osuna, TeleHealt h (Appt 08/27/20) 08/21/2020 Telephone Neurology Leon Osuna, Appointme nt 08/07/2020 Orders Only Rheumatology Jh Dumont MD 07/17/2020 Orders Only Rheumatology Miranda Dumont Vishnuteja V, MD unspecified myositis type, unspecified sit e 07/16/2020 Office Visit Rheumatology Miranda Dumont Vishnuteja V, MD unspecified myositis type, unspecified sit e (Primary Dx) 07/04/2020 Surgery Pain Management Chelly Motley MD INJECTION , EPIDURAL, LUMBA R OR SACRAL (CAUDAL) , WITH IMAGING GUIDANCE (WRVU 1.8) 07/04/2020 Hospital Pain Management Chelly Motley MD Spinal st enosis of Encounter lumbar region w ith neurogenic claudication 07/03/2020 Ancillary Pain Management Chelly Motley MD Pain Procedure 06/28/2020 Telephone Pain and Spine Homer White, Center RN 06/28/2020 Telephone Pain and Spine [facility] Dumont [facility] 06/08/2020 Telephone Pain and Spine Indy Terrell [facility] 06/08/2020 Telephone Pain and Spine Tasha Izaguirre E Center from Last 3 Months Immunizations Name Administration Dates Next Due Tuberculin Skin Test, PPD 02/14/2003 Social History Tobacco Use Types Packs/Day Years Used Date Former Smoker Smokeless Tobacco: Never Used Comments: Quit in 2017 Alcohol Use Drinks/Week oz/Week Comments Not Currently 14-21 Cans of beer 14.0 - 21.0 1 beer a day Alcohol Habits Answer Date Recorded How often do you have a drink containing 4 or more times a w [place] 08/15/2019 alcohol? How many drinks containing alcohol do you have 1 or 2 08/15/2019 on a typical day when you are drinking? How often do you have six or more drinks on one Never 08/15/2019 occasion? Sex Assigned at Date Recorded Not on file Last Filed Vital Signs Vital Sign Reading Time Taken Comments Blood Pressure 100/73 07/16/2020 8:50 AM EST Pulse 88 07/16/2020 8:50 AM EST Temperature 36.3 ??C (97.4 ??F) 07/16/2020 8:50 AM EST Respiratory Rate 14 07/04/2020 7:40 AM EDT Oxygen Saturation 98% 07/16/2020 8:50 AM EST Inhaled Oxygen Concentration - - Weight 108.9 kg (240 lb) 07/16/2020 8:50 AM EST Height 181.6 cm (5' 11.5) 07/16/2020 8:50 AM EST Body Mass Index 33.01 07/16/2020 8:50 AM EST Plan of Treatment Health Maintenance Due Date Last Done Comments Hepatitis C Screening 1973 Lipid Screening 1973 Tdap adult 1974 Tetanus vaccine 1974 Colonoscopy 2005 Zoster vaccine (1 of 2) 2005 Influenza (Flu) vaccine (1 of 1 - 05/15/2020 Influenza standard series) Diabetes Screening (HgbA1C or 07/16/2023 07/16/2020, 2019, Glucose) 03/21/2020, Additional history exists HIV screen Completed 11/25/2019 Procedures Procedure Name Priority Date/Time Associated Comments Diagnosis LAB SCAN 07/31/2020 12:00 Results for this AM EST procedure are i n the results section. HC THYROID STIMULATING Routine 07/16/2020 10:21 Myositis, [...] myositis type, the results unspecified site section. FILM LIBRARY STORAGE Routine 07/04/2020 3:34 Pain Res ults for this ONLY PAIN CLINIC C ARM PM EDT jewel paz are in the results section. from Last 3 Months Results LAB SCAN (07/31/2020 12:00 AM EST) Narrative Performed At This result has an attachment that is no t available. Ordered by an unspecified provider. TSH (07/16/2020 10:21 AM EST) Pathologist Sig nature TSH 3.19 0.27 - 4.20 mcIU/mL [facility] Specimen Blood Resulting Agency Comment Spec In Lab Performing Organization Address City/[facility]/Zipcode Phone Number [address] LABORATORY CK (07/16/2020 10:21 AM EST) Pathologist Sig nature CK, Total 569 (H) 0 - 200 unit/L [facility] Specimen Blood Resulting Agency Comment Spec In Lab Performing Organization Address City/[facility] Phone Number [address] LABORATORY Comprehensive metabolic panel (non-fasting) (07/16/2020 10:21 AM EST) Glucose Lvl 112Comment: Diabetes: 65 - 199 [facility] >=200 mg/dL plus mg/dL [facility] symptoms LABORATORY BUN 17 10 - 20 [facility] mg/dL [facility] Creatinine 1.00 0.80 - 1.50 [facility] mg/dL [facility]ORY Sodium 141 135 - 145 [facility] mmol/L [facility]ORY Potassium 4.3 3.5 - 5.0 [facility] Comment: mmol/L [facility] Please note: ??Patients with WBC >100,000 may welch ve falsely elevated Potassium LABORATORY levels. ??For accurate Potassium quantification in the se patients send serum separator tube (gold top) fo r subsequent determinations. ??Contact the Clinical Chemistry Laboratory if there are any questions. Chloride 104 98 - 107 [facility] mmol/L [facility]ORY CO2 27 22 - 31 [facility] mmol/L [facility]ORY Anion Gap 10 5 - 15 [facility] mmol/L [facility]ORY Calcium 9.9 8.5 - 10.5 [facility] mg/dL [facility]ORY Total Protein 7.1 6.1 - 8.0 [facility] gm/dL [facility]ORY Albumin 4.5 3.2 - 5.2 [facility] gm/dL [facility]ORY AST 31 0 - 39 [facility] unit/L [facility] ALT 28 0 - 55 [facility] unit/L [facility] Alk Phos 52 40 - 130 [facility]L [facility] Total Bilirubin 0.4 0.2 - 1.3 [facility] mg/dL [facility]ORY Estimated GFR 79 >=60 [facility] Comment: mL/min/1.73 [facility] The eGFR was calculated using the CKD-EPI equati on. As with all creatinine m?? LABORATORY based estimates of kidney function, eGFR values calcul ated with the CKD-EPI equation are not accurate in patients with acute kidne y failure, extremes of body mass or the acutely ill. [email or web address] eGFR 92 >=60 [facility] [place] Comment: mL/min/1.73 [facility] The eGFR was calculated using the CKD-EPI equati on. As with all creatinine m?? LABORATORY based estimates of kidney function, eGFR values calcul ated with the CKD-EPI equation are not accurate in patients with acute kidne y failure, extremes of body mass or the acutely ill. [email or web address] [email or web address] Specimen Blood Resulting Agency Comment Spec In Lab Performing Organization Address City/State/Zipcode Phone Number [place], [place] [address] H[facility]PITAL LABORATORY Film Library- Storage Only pain Clinic C-Arm (07/04/2020 3:34 PM EDT) Specimen Narrative Performed At See PACS for result report. RAD Performing Organization Address City/State/Zipcode Phone Number RAD [place], [place] from Last 3 Months Insurance Payer Benefit Plan / Subscriber ID Effective Dates Phone Addre ss Type Group [employer]UE [employer] BLUE [employer] OOS [id number] 2015-Present 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
--- OUTSIDE RECORDS SUMMARY | 2020-09-05 03:26 | XMS_ITS | Encounter Summary ---
:1955 Author Organization [facility] [place] [address] Care Team Providers Name Role Phone Virgen Constantino MD Primary Care Provider Encounter Details Date Type Department Care Team Description 06/08/2020 Telephone Pain and Spine Orlin ayon at [facility] [place] [address] Social History Tobacco Use Types Packs/Day Years Used Date Former Smoker Smokeless Tobacco: Never Used Comments: Quit in 2017 Alcohol Use Drinks/Week oz/Week Comments Not Currently 14-21 Cans of beer 14.0 - 21.0 1 beer a day Alcohol Habits Answer Date Recorded How often do you have a drink containing 4 or more times a w [place] 08/15/2019 alcohol? How many drinks containing alcohol do you have 1 or 2 08/15/2019 on a typical day when you are drinking? How often do you have six or more drinks on one Never 08/15/2019 occasion? Sex Assigned at Date Recorded Not on file documented as of this encounter Miscellaneous Notes Telephone Encounter - Indy Terrell - 06/08/2020 4:18 PM EDT Procedure: LESI MRI required? no (If yes, verify that updated MRI is in eDH) (Atlanto-Axial Joint injection, REBEKAH; 1 year or <)(Caudal MARILEE, LESI, Thoracic MARILEE, TFESI Lumbar & Cervical; 2 years or <) Referring Provider: Are you on any blood thinners? yes (If yes, specify medication type and prescribing provider for anticoagulant hold request) Medication: Xarelto Prescribing provider: approved by provider Anticoagulant Medication Therapy Protocol Guide for Procedures: Medication Must stop prior May resume Labs Coumadin (Warfarin) 5 days Per Prescriber 1 hour prior (<1.2) PT/INR Plavix (Clopidogrel) 7 days Per Prescriber n/a Fragmin (Dalteparin) 24 hours Per Prescriber n/a Lovenox (Enoxaparin) 24 hours Per Prescriber n/a Ticlid (Ticlopidine) 14 days Per Prescriber n/a Innohep (Tinzaparin) 24 hours Per Prescriber n/a Aggrenox (Dipyridamole) 7 days Per Prescriber n/a Pletal (Cilostazol) 2 days Per Prescriber n/a Pradaxa (Dabigretran) 5 days Per Prescriber n/a Xarelto (Rivaroxaban) 3 days 24 hours after n/a Eliquis (Apixaban) 3 days Per Prescriber n/a Inlyta (Axitinib) 24 hours 48 hours after n/a Agrylin (Anagrelide) N/a n/a Day of procedure Platelet count Effient (Prasugrel) 7 days Per Prescriber n/a Brilinta (Ticagrelor) 5 days Per Prescriber n/a Trental (Pentoxifylline) 2 days Per Prescriber n/a Aspirin (ASA, Vinay, Excedrin) 6 days Per Prescriber n/a Aggrastat (Tirofiban) 8 hours Per Prescriber n/a Angiomax (Bivalirudin) Must be discussed with provider before scheduling Per Provider Argatroban Must be discussed with provider before scheduling Per Provider Arixta (Fondaparinux) 4 days Per Prescriber n/a Effient (Prasugrel) 7 days Per Prescriber n/a Elmiron (Pentosan) 7 days Per Prescriber n/a Heparin, subq (Hemochron) 12 hours Per Prescriber n/a Integrelin (Eptifibatide) 8 hours Per Prescriber n/a Iprivask (Desirudin) Must be discussed with provider before scheduling Per Provider Normiflo (Ardeparin) 24 hours Per Prescriber n/a Persantine (Dipyridamole) 2 days Per Prescriber n/a Reopro (Abciximab) 2 days Per Prescriber n/a Are you taking any NSAIDs? no Type of NSAID: na Non-Steroidal Anti-Inflammatory Drug Guidelines: Medication Other Names Recommended Discontinuation Can Resume Aspirin - 81 mg and 325 mg (Note: If recommended or prescribed by provider, contact Pain Management)ASA, Vinay, Excedrein 6 days Per Prescriber Diclofenac Voltaren 1 day 24 hours after Etodolac Lodine 2 days 24 hours after Flurbiprofen Ansaid 7 days 24 hours after Ibuprofen Advil, Motrin, Midol 1 day 24 hours after Indomethicin Indocin 2 days 24 hours after Ketorolac Toradol 1 day 24 hours after Meloxicam Mobic 4 days 24 hours after Nabumetone Relafen 6 days 24 hours after Naproxen Naprosyn, Aleve 4 days 24 hours after Oxaprozin Daypro 10 days 24 hours after Piroxicam Feldene 10 days 24 hours after Salsalate Disalcid 1 day 24 hours after Nutritional Supplements Fish Oil, Ginko Biloba, Garlic, Vitamin E, Bromelain, Nattokinase 7 days 24 hours after Currently taking any oral steroids (i.e. prednisone) or have you had a steroid injection within the past two weeks? No Are you currently taking or have you recently been treated with antibiotics? yes (see case comments) Have you been in the ER or hospitalized recently? no If yes. Why? Na Do you have any allergies to anesthetics or steroids? no Are you diabetic? no (In the case of type I diabetes, steroids injections can make blood sugar spike) Is this being billed to workers comp or your regular insurance (verify insurance)? Worker's Comp no Insurance: BCBS OOS Completed by: Indy Aguila documented in this encounter Plan of Treatment Not on filedocumented as of this encounter Visit Diagnoses Not on filedocumented in this encounter
--- OUTSIDE RECORDS SUMMARY | 2020-09-05 03:26 | XMS_ITS | Encounter Summary ---
:1955 Author Organization [facility] [place] [address] Care Team Providers Name Role Phone Virgen Constantino MD Primary Care Provider Encounter Details Date Type Department Care Team Description 08/28/2020 TH Visit Neurology at [facility] Leon Osuna Necrotizing myopathy (TeleHealth) [facility] MD Valeria [facility] [address] NEUROLOGY DEPT. [phone] [place], [place] [address] [phone] Social History Tobacco Use Types Packs/Day Years Used Date Former Smoker Smokeless Tobacco: Never Used Comments: Quit in 2017 Alcohol Use Drinks/Week oz/Week Comments Not Currently 14-21 Cans of beer 14.0 - 21.0 1 beer a day Alcohol Habits Answer Date Recorded How often do you have a drink containing 4 or more times a w [place] 08/15/2019 alcohol? How many drinks containing alcohol do you have 1 or 2 08/15/2019 on a typical day when you are drinking? How often do you have six or more drinks on one Never 08/15/2019 occasion? Sex Assigned at Date Recorded Not on file documented as of this encounter Progress Notes Leon Osuna MD - 08/27/2020 11:30 AM OMER had a telephone clinic visit with Jeison Cervantes today as he was concerned about the Covid pandemic. He has been noticing a lot of joint pain and leg weakness. He has been getting physical therapy which she thinks helps. He had shingles about 4 months ago. His CK in early July was 569. He was started on Imuran about 3 weeks ago by rheumatology and seems to be tolerating it. His HMG coreductase antibody was negative in the past. He has been off prednisone for some time now. He is no longer taking Bactrim prophylactically. He is still quite active physically doing chores around his property. I will be happy to see Jeison hunter if he has concerns. It sounds like there may be a rheumatologicalcomponent to his joint pain. 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 All of his questions were answered in this 15-minute phone call. Seems to be reasonably stable albeit not totally normal. documented in this encounter Plan of Treatment Not on filedocumented as of this encounter Visit Diagnoses Diagnosis Necrotizing myopathy Other myopathies documented in this encounter
--- OUTSIDE RECORDS SUMMARY | 2020-09-05 03:28 | XMS_ITS | Encounter Summary ---
:1955 Author Organization [facility] [place] [address] Care Team Providers Name Role Phone Virgen Constantino MD Primary Care Provider Encounter Details Date Type Department Care Team Description 02/10/2020 Telephone Pain and Spine Orlin ayon at [facility] [place] [address] Social History Tobacco Use Types Packs/Day Years Used Date Former Smoker Smokeless Tobacco: Never Used Comments: Quit in 2017 Alcohol Use Drinks/Week oz/Week Comments Not Currently 14-21 Cans of beer 14.0 - 21.0 1 beer a day Alcohol Habits Answer Date Recorded How often do you have a drink containing 4 or more times a w [place] 08/15/2019 alcohol? How many drinks containing alcohol do you have 1 or 2 08/15/2019 on a typical day when you are drinking? How often do you have six or more drinks on one Never 08/15/2019 occasion? Sex Assigned at Date Recorded Not on file documented as of this encounter Miscellaneous Notes Telephone Encounter - Tasha Izaguirre - [facility]/10/2020 2[facility] Antico[facility] Hold Documentation Patient: eJison Cervantes [id number] Constantino to temporarily stop Xarelto for 3 days prior to requested lumbar epidural steroid injection injection/procedure. See signed permission received from prescriber scanned into electronic record. Permission received for multiple procedures over 1 year: no PT/INR ordered: n/a Tasha Izaguirre documented in this encounter Plan of Treatment Not on filedocumented as of this encounter Visit Diagnoses Not on filedocumented in this encounter
--- OUTSIDE RECORDS SUMMARY | 2020-09-05 03:28 | XMS_ITS | Encounter Summary ---
:1955 Author Organization [place] [address] Care Team Providers Name Role Phone Virgen Constantino MD Primary Care Provider Encounter Details Date Type Department Care Team Description 02/08/2020 Orders Only Neurology at [facility] Loen Osuna, Autoimmune necrotizing [facility] [place] [address] NEUR[address] DEPT. [place], [place] [address] [phone] Social History Tobacco Use Types Packs/Day Years Used Date Former Smoker Smokeless Tobacco: Never Used Comments: Quit in 2017 Alcohol Use Drinks/Week oz/Week Comments Yes 14-21 Cans of beer 14.0 - 21.0 1 beer a day Alcohol Habits Answer Date Recorded How often do you have a drink containing 4 or more times a w viejas 08/15/2019 alcohol? How many drinks containing alcohol do you have 1 or 2 08/15/2019 on a typical day when you are drinking? How often do you have six or more drinks on one Never 08/15/2019 occasion? Sex Assigned at Date Recorded Not on file documented as of this encounter Plan of Treatment Not on filedocumented as of this encounter Results CK (02/09/2020 9:11 AM EDT) Pathologist Sig nature CK, Total 156 0 - 200 unit/L [facility] Specimen Blood Resulting Agency Comment Spec In Lab Performing Organization Address City/State/Zipcode Phone Number [place], [place] [address] H[facility]ITAL LAB[facility]ORY Comprehensive metabolic panel (non-fasting) (02/09/2020 9:11 AM EDT) Glucose Lvl 278 (H)Comment: 65 - 199 [facility] Diabetes: >=200 mg/dL mg/dL [facility] plus symptoms LABORATORY BUN 26 (H) 10 - 20 [facility] mg/dL [facility] Creatinine 0.79 (L) 0.80 - 1.50 [facility] mg/dL [facility] Sodium 137 135 - 145 [facility] mmol/L [facility] Potassium 4.8 3.5 - 5.0 [facility] Comment: mmol/L [facility] Please note: ??Patients with WBC >100,000 may welch ve falsely elevated Potassium LABORATORY levels. ??For accurate Potassium quantification in the patients send serum separator tube (gold top) fo r subsequent determinations. ??Contact the Clinical Chemistry Laboratory if there are any questions. Chloride 99 98 - 107 [facility] mmol/L [facility] CO2 26 22 - 31 [facility] mmol/L [facility] Anion Gap 12 5 - 15 [facility] mmol/L [facility] Calcium 9.8 8.5 - 10.5 [facility] mg/dL [facility] Total Protein 5.9 (L) 6.1 - 8.0 [facility] gm/dL [facility] Albumin 3.9 3.2 - 5.2 [facility] gm/dL [facility] AST 18 0 - 39 [facility] unit/L [facility] ALT 75 (H) 0 - 55 [facility] unit/L [facility] Alk Phos 37 (L) 40 - 130 [facility] unit/L [facility] Total Bilirubin 0.5 0.2 - 1.3 [facility] mg/dL [facility] Estimated GFR 95 >=60 [facility] ANGELCOCK Comment: mL/min/1.73 [facility] The eGFR was calculated using the CKD-EPI equati on. As with all creatinine m?? LABORATORY based estimates of kidney function, eGFR values calcul ated with the CKD-EPI equation are not accurate in patients with acute kidne y failure, extremes of body mass or the acutely ill. [email or web address]/[facility] eGFR 110 >=60 [facility] Comment: mL/min/1.73 [facility] The eGFR was calculated using the CKD-EPI equati on. As with all creatinine m?? LABORATORY based estimates of kidney function, eGFR values calcul ated with the CKD-EPI equation are not accurate in patients with acute kidne y failure, extremes of body mass or the acutely ill. [email or web address]/[facility] Specimen Blood Resulting Agency Comment Spec In Lab Performing Organization Address City/State/Zipcode Phone Number [place] [address] HOSPITAL LABORATORY documented in this encounter Visit Diagnoses Diagnosis Autoimmune necrotizing myopathy documented in this encounter
--- OUTSIDE RECORDS SUMMARY | 2020-09-05 03:28 | XMS_ITS | Encounter Summary ---
:1955 Author Organization [facility] [place] [address] Care Team Providers Name Role Phone Virgen Constantino MD Primary Care Provider Reason for Referral Diagnostic Test (Routine) Status Reason Specialty Diagnoses / Referred By Referred To Procedures Contact Contact Closed Specialty Service Radiology Diagnoses Muscle weakness Leon Osuna [facility] Rad Cat Requested Procedures CT Chest Abdomen Pelvis w Contrast (Generic) CT Chest w Abdomen wwo Pelvis w Contrast WMD Scan [facility] DR Chong Colbert [place] [address] Phone: Reason for Visit Diagnostic Test (Routine) Status Reason Specialty Diagnoses / Referred By Referred To Procedures Contact Contact Closed Specialty Service Radiology Diagnoses Muscle weakness Leon Osuna [facility] Rad Cat Requested Procedures CT Chest Abdomen Pelvis w Contrast (Generic) CT Chest w Abdomen wwo Pelvis w Contrast WMD Scan [facility] DR Chong Col[place] [id number] Phone: Encounter Details Date Type Department Care Team Description 02/18/2020 Hospital Encounter CAT Scan [place] [facility] Leon Osuna, Muscle weakness [facility] [place] [address] NE[address]PT[address] [phone] [place], [place] [address] [phone] Social History Tobacco Use Types Packs/Day Years Used Date Former Smoker Smokeless Tobacco: Never Used Comments: Quit in 2017 Alcohol Use Drinks/Week oz/Week Comments Not Currently 14-21 Cans of beer 14.0 - 21.0 1 beer a day Alcohol Habits Answer Date Recorded How often do you have a drink containing 4 or more times a w [place] 08/15/2019 alcohol? How many drinks containing alcohol do you have 1 or 2 08/15/2019 on a typical day when you are drinking? How often do you have six or more drinks on one Never 08/15/2019 occasion? Sex Assigned at Date Recorded Not on file documented as of this encounter Medications at Time of Discharge Medication Sig Dispensed Refills Start Date End Date finasteride (Proscar) 5 mg Take 5 mg by 0 Tablet mouth daily. magnesium 250 mg Tablet Take 500 mg by 0 mouth daily. Xarelto 20 mg Tablet Take 20 mg by 0 10/16/2019 mouth daily. tamsulosin (FLOMAX) 0.4 mg Take 0.8 mg by 0 Capsule mouth daily. ibuprofen (ADVIL;MOTRIN) 400 Take 400 mg by 0 mg Tablet mouth every 6 hours as needed for Pain. methylPREDNISolone Take by mouth 0 (methylPRED DP) 4 mg See Admin Tablets, Dose Pack Instructions. 5 tablets daily folic acid (Folvite) 1 mg Take 1 tablet by 90 tablet 3 11/1308/30/2020 Tablet mouth daily. metHOTREXate 2.5 mg Tablet Take 6 tablets 24 tablet 3 12/0403/22/2020 by mouth once a week. mycophenolate (CELLCEPT) 500 Take 2 tablets 120 tablet 5 10/201903/22/2020 mg TabletIndications: by mouth 2 times Necrotizing myopathy daily. documented as of this encounter Plan of Treatment Not on filedocumented as of this encounter Procedures Procedure Name Priority Date/Time Associated Diagnosis Comme nts CT CHEST ABDOMEN Routine 02/18/2020 12:55 PM Muscle weakness R esults for this PELVIS W CONTRAST EDT procedure are in (GENERIC) the results section. documented in this encounter Results CT Chest Abdomen Pelvis w Contrast (Generic) (02/18/2020 12:55 PM EDT) Specimen Impressions Performed At 1. ??3 indeterminate pulmonary nodular densities, rang ing in size from [facility] RAD 10 to 13 mm. Although these may be areas of inflammatory/infect ious etiology, neoplasm cannot be totally excluded. Would recommend a close in terval follow-up chest CT in one to 2 months. 2. ??Enlarged prostate gland causing a posterior lobul ar intravesicular filling defect along the bladder wall. Thank you for letting us participate in the care of th is patient. For questions regarding this report, please contact the number below . ? Narrative Performed At EXAMINATION: CT CHEST ABDOMEN PELVIS Valeria RAMIERZ (GENERIC) RAD CLINICAL HISTORY: weight loss TECHNIQUE: Helical CT of the chest, abdomen, and pelvi s was performed following the intravenous administration of contrast. Administer ed 117.0 ml of OMNIPAQUE 350.00 mg/ml. Oral contrast was administ ered. COMPARISON: None FINDINGS: Chest: Lungs and large airways: An indeterminate somewhat ill -defined 13 mm nodular density is seen in the inferior aspect o f the RIGHT lower lobe.. A 12 mm irregularly-shaped nodular density seen in the lingula . A 10 mm nodular density is seen in the inferior aspect of the LE FT lower lobe. Pleura: No effusion. Heart/vasculature: Normal. Lymph nodes: No enlarged lymph nodes. Mediastinum and sarah: Normal. Abdomen/pelvis: Liver: Normal size and attenuation witho ut lesions. Bile ducts: Nondilated. Gallbladder: No calcified gallstones. No rmal caliber wall. Pancreas: Normal attenuation without jaki gina dilatation. Spleen: Normal. Adrenals: Normal. Kidneys: Symmetric renal enhancement. No renal masses. No renal collecting system obstruction bilaterally Urinary Bladder: Contracted with thicken ed wall. A posterior lobular intravesicular filling defect is seen fr om an enlarged prostate gland. Vasculature: No aneurysm. Lymph Nodes: ??No enlarged lymph nodes. Bowel: Nondilated, no wall thickening. ? ? Peritoneum and mesentery: No ascites, free air, or loc ulated fluid collection. No mesenteric inflammation. Abdominal wall: Postsurgical changes RIGHT inguinal re gion compatible with a hernia repair. No complication. Reproductive organs: Enlarged prostate g land Osseous structures: No suspicious lesion s. Procedure Note Department, Radiology - 02/18/2020 3:27 PM EDT EXAMINATION: CT CHEST ABDOMEN PELVIS W CONTRAST (GENERIC) CLINICAL HISTORY: weight loss TECHNIQUE: Helical CT of the chest, abdo men, and pelvis was performed following the intravenous administration of contra st. Administered 117.0 ml of OMNIPAQUE 350.00 mg/ml. Oral contrast was administ ered. COMPARISON: None FINDINGS: Chest: Lungs and large airways: An indeterminat e somewhat ill-defined 13 mm nodular density is seen in the inferior aspect o f the RIGHT lower lobe.. A 12 mm irregularly-shaped nodular density seen in the lingula. A 10 mm nodular density is seen in the inferior aspect of the LE FT lower lobe. Pleura: No effusion. Heart/vasculature: Normal. Lymph nodes: No enlarged lymph nodes. Mediastinum and sarah: Normal. Abdomen/pelvis: Liver: Normal size and attenuation witho ut lesions. Bile ducts: Nondilated. Gallbladder: No calcified gallstones. No rmal caliber wall. Pancreas: Normal attenuation without jaki gina dilatation. Spleen: Normal. Adrenals: Normal. Kidneys: Symmetric renal enhancement. No renal masses. No renal collecting system obstruction bilaterally Urinary Bladder: Contracted with thicken ed wall. A posterior lobular intravesicular filling defect is seen fr om an enlarged prostate gland. Vasculature: No aneurysm. Lymph Nodes: No enlarged lymph nodes. Bowel: Nondilated, no wall thickening. Peritoneum and mesentery: No ascites, fr ee air, or loculated fluid collection. No mesenteric inflammation. Abdominal wall: Postsurgical changes RIG HT inguinal region compatible with a hernia repair. No complication. Reproductive organs: Enlarged prostate g land Osseous structures: No suspicious lesion s. IMPRESSION 1. 3 indeterminate pulmonary nodular de nsities, ranging in size from 10 to 13 mm. Although these may be areas of infla mmatory/infectious etiology, neoplasm cannot be totally excluded. Would recomm end a close interval follow-up chest CT in one to 2 months. 2. Enlarged prostate gland causing a po sterior lobular intravesicular filling defect along the bladder wall. Thank you for letting us participate in the care of this patient. For questions regarding this report, please contact e number below. Electronically signed by: Alejandro wheeler, [facility] ([phone]), at 02/18/2020 3:22 PM Performing Organization Address City/State/Zipcode Phone Number [place], [place] documented in this encounter Visit Diagnoses Diagnosis Muscle weakness Muscle weakness (generalized) documented in this encounter Administered Medications Inactive Administered Medications - up to 3 most recent administrations Medication Order MAR Action Action Date Dose Rate Site iohexoL (OMNIPAQUE) 350 mg/mL Given 02/18/2020 12:57 PM EDT 117 mLs solution 0-200 mL 0-200 mL, Intravenous, ONCE PRN, 1 dose, Starting 02/18/20 at 1255, Until 02/18/20 at 1257, Per Protocol, Warning Vesicant/Irritant Medication , Radiology Contrast, Routine iohexoL (OMNIPAQUE) 350 mg/mL solution 0-50 Given 02/2020 12:57 PM EDT 50 mLs mL 0-50 mL, Oral, ONCE PRN, 1 dose, Starting 02/18/20 at 1255, Until 02/18/20 at 1257, Per Protocol, Warning Vesicant/Irritant Medication , Radiology Contrast, Routine documented in this encounter
--- OUTSIDE RECORDS SUMMARY | 2020-09-05 03:28 | XMS_ITS | Encounter Summary ---
:1955 Author Organization [facility] [place] [address] Care Team Providers Name Role Phone Virgen Constantino MD Primary Care Provider Encounter Details Date Type Department Care Team Description 03/15/2020 Telephone Neurology at [facility] Leon Osuna MD [facility] [place] [address] NEUROLOGY DEPT. [phone] [place], [place] [address] [phone] Social History Tobacco Use Types Packs/Day Years Used Date Former Smoker Smokeless Tobacco: Never Used Comments: Quit in 2017 Alcohol Use Drinks/Week oz/Week Comments Not Currently 14-21 Cans of beer 14.0 - 21.0 1 beer a day Alcohol Habits Answer Date Recorded How often do you have a drink containing 4 or more times a w [place] 08/15/2019 alcohol? How many drinks containing alcohol do you have 1 or 2 08/15/2019 on a typical day when you are drinking? How often do you have six or more drinks on one Never 08/15/2019 occasion? Sex Assigned at Date Recorded Not on file documented as of this encounter Miscellaneous Notes Telephone Encounter - Camilla Roberts - 03/15/2020 9:27 AM EDTSpoke to Debora who asked that I call back in about 1 hour to reschedule Jeison' appointment to a telehealth on a later date. documented in this encounter Plan of Treatment Not on filedocumented as of this encounter Visit Diagnoses Not on filedocumented in this encounter
--- OUTSIDE RECORDS SUMMARY | 2020-09-05 03:28 | XMS_ITS | Encounter Summary ---
:1955 Author Organization [facility] [place] [address] Care Team Providers Name Role Phone Virgen Constantino MD Primary Care Provider Encounter Details Date Type Department Care Team Description 02/09/2020 Telephone [place] [facility] [place] [address] Social History Tobacco Use Types Packs/Day Years Used Date Former Smoker Smokeless Tobacco: Never Used Comments: Quit in 2017 Alcohol Use Drinks/Week oz/Week Comments Not Currently 14-21 Cans of beer 14.0 - 21.0 1 beer a day Alcohol Habits Answer Date Recorded How often do you have a drink containing 4 or more times a w [place] 08/15/2019 alcohol? How many drinks containing alcohol do you have 1 or 2 08/15/2019 on a typical day when you are drinking? How often do you have six or more drinks on one Never 08/15/2019 occasion? Sex Assigned at Date Recorded Not on file documented as of this encounter Miscellaneous Notes Telephone Encounter - Tasha Izaguirre E - [facility]/09/2020 9[facility] Initial Request Patient: Jeison Cervantes [id number] Request for the above named patient to temporarily stop Xarelto for 3 days prior to requested cervical epidural steroid injection and lumbar epidural steroid injection injection/procedure has been faxed to: Dr. Colón office. Fax number: [phone] Fax confirmation that request received at the above named doctor's office: 02/09/2020 (date stamp on fax confirmation) 10:10am (time stamp on fax confirmation) Paper documentation in [facility] Scheduling Desk. Tasha Izaguirre documented in this encounter Plan of Treatment Not on filedocumented as of this encounter Visit Diagnoses Not on filedocumented in this encounter
--- OUTSIDE RECORDS SUMMARY | 2020-09-05 03:28 | XMS_ITS | Encounter Summary ---
:1955 Author Organization [facility] [place] [address] Care Team Providers Name Role Phone Virgen Constantino MD Primary Care Provider Reason for Referral Diagnostic Test (Routine) Status Reason Specialty Diagnoses / Referred By Referred To Procedures Contact Contact Closed Specialty Service Radiology Diagnoses Muscle weakness Leon Osuna [facility] Rad Cat Requested Procedures CT Chest Abdomen Pelvis w Contrast (Generic) CT Chest w Abdomen wwo Pelvis w Contrast W, MD Scan [facility] [address] [place] [phone] Phone: Encounter Details Date Type Department Care Team Description 02/09/2020 Office Visit Neurology at [facility] Leon Osuna MD Muscle weakness [facility] Jak [address] [place] [address] NEUROLOGY DEPT. [phone] [place], [place] [address] [phone] Social History Tobacco Use Types Packs/Day Years Used Date Former Smoker Smokeless Tobacco: Never Used Comments: Quit in 2017 Alcohol Use Drinks/Week oz/Week Comments Not Currently 14-21 Cans of beer 14.0 - 21.0 1 beer a day Alcohol Habits Answer Date Recorded How often do you have a drink containing 4 or more times a w hopi 08/15/2019 alcohol? How many drinks containing alcohol do you have 1 or 2 08/15/2019 on a typical day when you are drinking? How often do you have six or more drinks on one Never 08/15/2019 occasion? Sex Assigned at Date Recorded Not on file documented as of this encounter Last Filed Vital Signs Vital Sign Reading Time Taken Comments Blood Pressure 134/68 02/09/2020 1:38 PM EDT Pulse - - Temperature - - Respiratory Rate - - Oxygen Saturation - - Inhaled Oxygen Concentration - - Weight 102.1 kg (225 lb) 02/09/2020 1:38 PM EDT Height 181.6 cm (5' 11.5) 02/09/2020 1:38 PM EDT Body Mass Index 30.94 02/09/2020 1:38 PM EDT documented in this encounter Progress Notes Leon Osuna MD - 02/09/2020 2:00 PM EDTThis is a phone clinic appointment on Je[facility] [address]. Arms and legs feel weaker. 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 He was started on methotrexate and his CK has come down to normal range. Transaminases slightly elevated. He has lost a substantial amount of weight which she thinks is all muscle bulk. His weight is presently . He is taking prednisone and methotrexate. His liver functions are mildly elevated. Sugars high. He also has a lot of pain in his buttocks and hips and has had some intermittent numbness in hislegs and feet. If he tries to walk any distance he gets severe pain in the hips and buttocks and has to sit down. 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 On cellcept, MTX and prednisilone 20mg/day. ?? He is severely limited in terms of lifting and crouching. Arms and legs have gotten smaller and weaker. Most recent pulmonary functions performed showed a forced vital capacity of 108%. He is having to urinate 3 times at night and without the Flomax is much 6 times a night. ?? He is bright and alert with a normal mental status. Cranial nerves II through XII were intact. Although he may have some subtle atrophy in his arms, he has good strength in his arms. He has good strength in his legs but he does have some atrophy especially over the quads right greater than left.His sensory exam is normal. Deep tendon reflexes were were diminished but symmetric throughout. ?? EMG/NCVs: The sural sensory nerve action potential [...] history of neurogenicclaudication and his MRI findings. I will order a CT of the chest abdomen pelvis today in the setting of weight loss to be sure he doesnot have an occult malignancy. I will also order a paraneoplastic panel. Dr. Otero saw patient and thought his weakness was a combination of myopathy and spinal stenosis. I will see the patient back in about 4 to 6 weeks. ?? documented in this encounter Plan of Treatment Not on filedocumented as of this encounter Procedures Procedure Name Priority Date/Time Associated Comments Diagnosis PARANEOPLASTIC Routine 02/09/2020 3:10 Results f or this AUTOANTIBODY EVAL, PM EDT procedure are in SERUM the results section. documented in this encounter [...] Performed At EXAMINATION: CT CHEST ABDOMEN PELVIS W C ONTRAST (GENERIC) RAD CLINICAL HISTORY: weight loss TECHNIQUE: [...] this report, please contact e number below. Performing Organization Address City/State/Zipcode Phone Number [place], [place] Paraneoplastic Autoantibody Eval, Serum (02/09/2020 3:10 PM EDT) Paraneo Eval SEE COMMENTS MENG ROMEO Interpretation Comment: [facility] No informative autoantibodies were detected in the HOSPITAL Paraneoplastic Evaluation. However, a negative result does LABORATORY not exclude neurological autoimmunity with or without associated neoplasia. Sensitivity and specificity of antibody testing are enhanced by testing both serum an d CSF. Test Performed by: [place] [address] Needle Loom Setter: Matthew Song M.D. Ph.D.; CLIA# [id number] ALBERTO-1 Negative <1:240 MENG AGUEDA (Anti-Neuronal Comment: titer [facility] Nuclear Ab, Type 1) Test Performed by: [place] [address] Needle Loom Setter: Matthew Song M.D. Ph.D.; CLIA# [id number] ALBERTO-2 Negative <1:240 MENG AGUEDA (Anti-Neuronal Comment: titer [facility] Nuclear Ab,Type 2) ADDITIONAL INFORMATIO N HOSPITAL This test was developed and its performance characteri stics LABORATORY determined by [facility] in a manner consistent with CLIA requirements. This test has not been cleared or approv ed by the U.S. Food and Drug Administration. Test Performed by: [facility] [address] Needle Loom Setter: Matthew Song M.D. Ph.D.; CLIA# [id number] ALBERTO-3 Negative <1:240 MENG AGUEDA (Anti-Neuronal Comment: titer [facility] Nuclear Ab, Type 3) ADDITIONA L INFORMATION [facility] This test was developed and its performance characteri stics LABORATORY determined by [facility] in a manner consistent with CLIA requirements. This test has not been cleared or approv ed by the U.S. Food and Drug Administration. Test Performed by: [facility] [address] Needle Loom Setter: Matthew Song M.D. Ph.D.; CLIA# [id number] AGNA-1 (Anti-Glial Negative <1:240 MENG AGUEDA Nuclear Ab, Type 1) Comment: titer [facility] ADDITIONAL INFORMATION ------ HOSPITAL This test was developed and its performance characteri stics LABORATORY determined by [facility] in a manner consistent with CLIA requirements. This test has not been cleared or approv ed by the U.S. Food and Drug Administration. Test Performed by: [facility] [address] Needle Loom Setter: Matthew Song M.D. Ph.D.; CLIA# [id number] HOTEL CONCIERGE-1 (Purkinje Cell Negative <1:240 MENG AGUEDA Cytoplasmic Ab-Type Comment: titer [facility] 1) ADDITIONAL INFORMATION ------ HOSPITAL This test was developed and its performance characteri stics LABORATORY determined by [facility] in a manner consistent with CLIA requirements. This test has not been cleared or approv ed by the U.S. Food and Drug Administration. Test Performed by: [facility] [address] Needle Loom Setter: Matthew Song M.D. Ph.D.; CLIA# [id number] HOTEL CONCIERGE-2 (Purkinje Cell Negative <1:240 MENG AGUEDA Cytoplasmic Ab-Type Comment: titer [facility] 2) ADDITIONAL INFORMATION ------ HOSPITAL This test was developed and its performance characteri stics LABORATORY determined by [facility] in a manner consistent with CLIA requirements. This test has not been cleared or approv ed by the U.S. Food and Drug Administration. Test Performed by: [facility] [address] Needle Loom Setter: Matthew Song M.D. Ph.D.; CLIA# [id number] HOTEL CONCIERGE-Type Tr Negative <1:240 MENG AGUEDA (Purkinje Cell Comment: titer [facility] Cytoplasmic Ab-Type ADDITIONA L INFORMATION HOSPITAL Tr) This test was developed and its performance characteri stics LABORATORY determined by [facility] in a manner consistent with CLIA requirements. This test has not been cleared or approv ed by the U.S. Food and Drug Administration. Test Performed by: [facility] [address] Needle Loom Setter: Matthew Song M.D. Ph.D.; CLIA# [id number] Amphiphysin Antibody Negative <1:240 MENG ROMEO Comment: titer [facility] ADDITIONAL INFORMATION ------ HOSPITAL This test was developed and its performance characteri stics LABORATORY determined by [facility] in a manner consistent with CLIA requirements. This test has not been cleared or approv ed by the U.S. Food and Drug Administration. Test Performed by: [facility] [place] [address] Needle Loom Setter: Matthew Song M.D. Ph.D.; CLIA# [id number] CRMP-5-IgG Negative <1:240 MENG AGUEDA Comment: titer [facility] ADDITIONAL INFORMATION ------ [facility] This test was developed and its performance characteri stics LABORATORY determined by [facility] in a manner consistent with CLIA requirements. This test has not been cleared or approv ed by the U.S. Food and Drug Administration. Test Performed by: [facility] - [address] [address] Needle Loom Setter: Matthew Song M.D. Ph.D.; CLIA# [id number] Striated Muscle Ab Negative <1:120 MENG ROMEO Comment: titer [facility] ADDITIONAL INFORMATION ------ HOSPITAL This test was developed and its performance characteri stics LABORATORY determined by [facility] in a manner consistent with CLIA requirements. This test has not been cleared or approv ed by the U.S. Food and Drug Administration. Test Performed by: [facility] [place] [address] Needle Loom Setter: Matthew Song M.D. Ph.D.; CLIA# [id number] P/Q-Type Ca Channel 0.00 <=0.02 MENG AGUEDA Ab Comment: nmol/L [facility] ADDITIONAL INFORMATION ------ HOSPITAL This test was developed and its performance characteri stics LABORATORY determined by [facility] in a manner consistent with CLIA requirements. This test has not been cleared or approv ed by the U.S. Food and Drug Administration. Test Performed by: [facility] [address] Needle Loom Setter: Matthew Song M.D. Ph.D.; CLIA# [id number] N-Type Ca Channel Ab 0.00 <=0.03 MENG ROMEO Comment: nmol/L [facility] ADDITIONAL INFORMATION ------ HOSPITAL This test was developed and its performance characteri stics LABORATORY determined by [facility] in a manner consistent with CLIA requirements. This test has not been cleared or approv ed by the U.S. Food and Drug Administration. Test Performed by: [facility] [place] [address] Needle Loom Setter: Matthew Song M.D. Ph.D.; CLIA# [id number] AChR Gang Neuronal 0.00 <=0.02 [employer] Ab Comment: nmol/L [facility] ADDITIONAL INFORMATION ------ HOSPITAL This test was developed and its performance characteri stics LABORATORY determined by [facility] in a manner consistent with CLIA requirements. This test has not been cleared or approv ed by the U.S. Food and Drug Administration. Test Performed by: [facility] - [address] [address] Needle Loom Setter: Matthew Song M.D. Ph.D.; CLIA# [id number] Neuronal (V-G) K+ 0.00 <=0.02 MENG COXAGUEDAALEXIS Abarca Ab Comment: nmol/L [facility] ADDITIONAL INFORMATION ------ HOSPITAL This test was developed and its performance characteri [facility] LABORATORY determined by [facility] in a manner consistent with CLIA requirements. This test has not been cleared or approv ed by the U.S. Food and Drug Administration. Test Performed by: [facility] - [address] [address] Needle Loom Setter: Matthew Song M.D. Ph.D.; CLIA# [id number] Specimen Blood Resulting Agency Comment Spec In Lab Performing Organization Address City/State/Zipcode Phone Number [facility] [address] LABORATORY documented in this encounter Visit Diagnoses Diagnosis Muscle weakness Muscle weakness (generalized) documented in this encounter
--- OUTSIDE RECORDS SUMMARY | 2020-09-05 03:28 | XMS_ITS | Encounter Summary ---
:1955 Author Organization [facility] [place] [address] Care Team Providers Name Role Phone Virgen Constantino MD Primary Care Provider Encounter Details Date Type Department Care Team Description 02/29/2020 Telephone Pain and Spine Orlin ayon at [facility] [address] Social History Tobacco Use Types Packs/Day Years Used Date Former Smoker Smokeless Tobacco: Never Used Comments: Quit in 2017 Alcohol Use Drinks/Week oz/Week Comments Not Currently 14-21 Cans of beer 14.0 - 21.0 1 beer a day Alcohol Habits Answer Date Recorded How often do you have a drink containing 4 or more times a w [place] 08/15/2019 alcohol? How many drinks containing alcohol [...]
--- OUTSIDE RECORDS SUMMARY | 2020-09-05 03:28 | XMS_ITS | Encounter Summary ---
:1955 Author Organization [facility] [place] [address] Care Team Providers Name Role Phone Virgen Constantino MD Primary Care Provider Reason for Visit Reason Onset Date Comments TeleHealth 01/27/2020 Appt 01/29 Encounter Details Date Type Department Care Team Description 01/27/2020 Telephone Neurology at [facility] Leon Osuna, TeleHealth (Appt 01/29) [facility] [place] [address] NEUROLOGY DEPT. [place], [place] [address] [phone] Social History Tobacco Use Types Packs/Day Years Used Date Former Smoker Smokeless Tobacco: Never Used Comments: Quit in 2017 Alcohol Use Drinks/Week oz/Week Comments Yes 14-21 Cans of beer 14.0 - 21.0 1 beer a day Alcohol Habits Answer Date Recorded How often do you have a drink containing 4 or more times a w algaaciq 08/15/2019 alcohol? How many drinks containing alcohol do you have 1 or 2 08/15/2019 on a typical day when you are drinking? How often do you have six or more drinks on one Never 08/15/2019 occasion? Sex Assigned at Date Recorded Not on file documented as of this encounter Miscellaneous Notes Telephone Encounter - Madyson Bahena LNA - 01/27/2020 11:15 AM EDTUnable to reach patient to review medications and allergies prior to upcoming tele- appointment scheduled with Neurology provider. documented in this encounter Plan of Treatment Not on filedocumented as of this encounter Visit Diagnoses Not on filedocumented in this encounter
--- OUTSIDE RECORDS SUMMARY | 2020-09-05 03:28 | XMS_ITS | Encounter Summary ---
:1955 Author Organization [facility] [place] [address] Care Team Providers Name Role Phone Virgen Constantino MD Primary Care Provider Reason for Visit Reason Onset Date Comments Appointment 02/03/2020 Encounter Details Date Type Department Care Team Description 02/03/2020 Telephone Neurology at [facility] Leon Osuna MD Appointment [facility] [place] [address] NEUROLOGY DEPT. [phone] [place], [place] [address] [phone] Social History Tobacco Use Types Packs/Day Years Used Date Former Smoker Smokeless Tobacco: Never Used Comments: Quit in 2017 Alcohol Use Drinks/Week oz/Week Comments Yes 14-21 Cans of beer 14.0 - 21.0 1 beer a day Alcohol Habits Answer Date Recorded How often do you have a drink containing 4 or more times a w [place] 08/15/2019 alcohol? How many drinks containing alcohol do you have 1 or 2 08/15/2019 on a typical day when you are drinking? How often do you have six or more drinks on one Never 08/15/2019 occasion? Sex Assigned at Date Recorded Not on file documented as of this encounter Miscellaneous Notes Telephone Encounter - Marycruz Vega H - 02/03/2020 9:[address] [facility] [employer] Message - General Issue Call Provider patient sees in Clinic: Leon Osuna Caller and relationship (if other than patient-full name): Pt Call back number: [phone] Ok to leave a message: yes Reason for call: Pt called stating he had a telehealth visit with Dr. Osuna on 01/29 and pt stated he was instructed to call back to schedule an EMG for 02/08. This agent did not see there was an appt available on 02/[address] Osuna wanted EMG for that date in the 01/29 appt note. Pleasecall pt back to discuss scheduling EMG for 02/08 Disposition of Call (choose one and remove others): ? Routine message sent to [employer]: documented in this encounter Plan of Treatment Not on filedocumented as of this encounter Visit Diagnoses Not on filedocumented in this encounter
--- OUTSIDE RECORDS SUMMARY | 2020-09-05 03:28 | XMS_ITS | Encounter Summary ---
:1955 Author Organization [facility] Address [facility] [address] [place] [address] Care Team Providers Name Role Phone Virgen Constantino MD Primary Care Provider Encounter Details Date Type Department Care Team Description 03/08/2020 Ancillary Procedure Radiology Library at Jonathan Gomes MD [facility] [place] [address] [place] [address] [phone] Social History Tobacco Use Types Packs/Day Years Used Date Former Smoker Smokeless Tobacco: Never Used Comments: Quit in 2017 Alcohol Use Drinks/Week oz/Week Comments Not Currently 14-21 Cans of beer 14.0 - 21.0 1 beer a day Alcohol Habits Answer Date Recorded How often do you have a drink containing 4 or more times a w [place] 08/15/2019 alcohol? How many drinks containing alcohol [...] Associated Diagnosis Comme nts FILM LIBRARY Routine 03/07/2020 12:05 AM Results for this STORAGE ONLY CT EDT procedure ar e in CHEST the results section. documented in this encounter Results Film Library- Storage Only CT Chest (03/07/2020 12:05 AM EDT) Specimen Narrative Performed At This exam is auto-finalizing. It's purpose is for stor age only. YARY OCASIO Performing Organization Address City/State/Zipcode Phone Number YARY OCASIO [place], [place] documented in this encounter Visit Diagnoses Not on filedocumented in this encounter
--- OUTSIDE RECORDS SUMMARY | 2020-09-05 03:28 | XMS_ITS | Encounter Summary ---
:1955 Author Organization [facility] [place] [address] Care Team Providers Name Role Phone Virgen Constantino MD Primary Care Provider Encounter Details Date Type Department Care Team Description 01/31/2020 Orders Only Rheumatology at [facility] Rosenda [facility] [place] [address] [facility] [phone] RHEUMATOLOGY [place], [place] [address] [phone] Social History Tobacco Use Types Packs/Day Years Used Date Former Smoker Smokeless Tobacco: Never Used Comments: Quit in 2017 Alcohol Use Drinks/Week oz/Week Comments Yes 14-21 Cans of beer 14.0 - 21.0 1 beer a day Alcohol Habits Answer Date Recorded How often do you have a drink containing 4 or more times a w lum[place] 08/15/2019 alcohol? How many drinks containing alcohol [...]
--- OUTSIDE RECORDS SUMMARY | 2020-09-05 03:28 | XMS_ITS | Encounter Summary ---
:1955 Author Organization [facility] [place] [address] Care Team Providers Name Role Phone Virgen Constantino MD Primary Care Provider Reason for Referral Consultation (Routine) Status Reason Specialty Diagnoses / Referred By Referred To Procedures Contact Contact Closed Consult, Test Pain and Spine Diagnoses Spinal stenosis of lumbar region with neurogenic claudication Procedure - LESI (case built) Poncho Otero [facility] MD [facility] [place] [phone] Phone: Physical Therapy (Routine) Status Reason Specialty Diagnoses / Referred By Referred To Procedures Contact Contact Evaluate and Diagnoses Spinal stenosis of lumbar region with neurogenic claudication Poncho [place] [address] Reason for Visit Reason Comments Back Pain Bilateral Leg Pain Consultation (Urgent) Status Reason Specialty Diagnoses / Referred By Referred To Procedures Contact Contact Closed Surgical Pain and Spine Diagnoses Muscle pain Spinal stenosis of lumbar region with neurogenic claudication Kaushik [facility] Rosenda Acosta MD And Spine [facility] RHEUMATOLOGY [place], [place] DEPT [address] [place], [place] Phone: [phone] Encounter Details Date Type Department Care Team Description 02/09/2020 Office Visit Pain and Spine Center Poncho Otero Sp inal stenosis of at [facility] MD lumbar region with [facility] [address] dong [place], [place] [facility] [address] [place] [address] [phone] Social History Tobacco Use Types Packs/Day Years Used Date Former Smoker Smokeless Tobacco: Never Used Comments: Quit in 2017 Alcohol Use Drinks/Week oz/Week Comments Not Currently 14-21 Cans of beer 14.0 - 21.0 1 beer a day Alcohol Habits Answer Date Recorded How often do you have a drink containing 4 or more times a w [place] 08/15/2019 alcohol? How many drinks containing alcohol do you have 1 or 2 08/15/2019 on a typical day when you are drinking? How often do you have six or more drinks on one Never 08/15/2019 occasion? Sex Assigned at Date Recorded Not on file documented as of this encounter Last Filed Vital Signs Vital Sign Reading Time Taken Comments Blood Pressure - - Pulse - - Temperature - - Respiratory Rate - - Oxygen Saturation - - Inhaled Oxygen Concentration - - Weight 102.5 kg (226 lb) 02/07/2020 1:59 PM EDT Height 181.6 cm (5' 11.5) 02/07/2020 1:59 PM EDT Body Mass Index 31.08 02/07/2020 1:59 PM EDT documented in this encounter Progress Notes Poncho Otero MD - 02/09/2020 8:00 AM EDTChief complaint: Low back pain radiating to bilateral lower extremities, lower extremity weakness History of present illness: Mr. Cervantes is a 64-year-old male whom I am seeing in consultation for Dr. Doughertyju regards to his back pain that radiates to his bilateral buttocks and diffusely through his thighs and legs. He believes the pain tends to be present more posteriorly than anteriorly. Thesymptoms came on insidiously over 3 years ago. 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 He has been treated with IVIG, methotrexate, andprednisone without much improvement clinically. His CK has decreased following treatment. His painlimits his standing to about 5 minutes and walking to less than 200 yards. He gets improvement by sitting down and with forward flexion. He finds a shopping cart helpful. He denies numbness. He does note significant weakness and has difficulty going up stairs or standing up after squatting. He does feel somewhat off balance when he walks. He does note that he has lost 30 pounds recently, and there is not a clear cause of this. He denies bowel or bladder incontinence. He has been taking ibuprofen which she believes helps the leg pain to some degree. He has not had physical therapy, injections, or prior spinal surgery. Past medical history: Myositis, DVT about 3 years ago for which he takes Xarelto, elevated PSA Past surgical history: Hernia repair Medications and allergies were reviewed and are in ED H. He is on methylprednisolone, methotrexate, and Xarelto. 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 He does not smoke or drink. Review of systems: All negative except musculoskeletal as above. Physical exam Patient is 6 feet tall, 226 pounds, with a BMI of 31 General: Patient is comfortable, no acute distress Back: His back is nontender to palpation. He can flex 90 degrees and extend 20 degrees. Neurological exam: He walks with a wide-based gait. He is unable to heel walk or toe walk. He is unable to stand up without assistance after squatting down. Motor exam reveals 4/5 strength of all lower extremity motors bilaterally. He has a normal sensory exam. Reflexes are 2/4 at the knees and ankles. He has no clonus. Hip exam: He has normal, painless range of motion of both hips. Vascular exam: He has palpable pulses bilaterally. Imaging: AP and lateral x-rays of the lumbar spine from 01/23/2020 were reviewed. He has no scoliosis. There may be trace anterolisthesis at L3-L4, but that is quite subtle. MRI of the lumbar spine from 01/29/2020 was reviewed. There may be trace listhesis at L2-3???L4. L3-L4, he has relatively severe central and lateral recess stenosis. At L4-L5, he is moderate central and more severe lateral recess stenosis. At L5-S1, he has moderate central and more severe lateral re cess stenosis and moderate right???sided foraminal narrowing. Assessment/plan: Mr. Cervantes is a 64-year-old male who presents with over 3 years of back pain radiating to his lower extremities associated with significant lower extremity weakness. He has a diagnosis of myopathy and has had extensive treatment for that with improvement of his CK levels, though he has not noted a difference in terms of his symptoms. He most likely has symptoms related to both the myopathy and the spinal stenosis. The weakness is almost certainly due to the myopathy. His painand claudication symptoms could be related either to the myopathy or the spinal stenosis, and it is somewhat difficult to differentiate the two. To help with this diagnosis, I have recommended an epidural steroid injection, which will be done in the pain clinic. He will have to stop his Xarelto for that. If he gets substantial relief from the injection, it would implicate the stenosis as a cause of his symptoms. If he gets no relief from the injection, it becomes more difficult to know the role the stenosis of playing. I also gave him a referral for physical therapy. If after the injection hegets either temporary or minimal relief and wants to discuss surgery, he should return to see me with flexion???extension x- rays prior to the visit. documented in this encounter Plan of Treatment Scheduled Referrals Name Type Priority Associated Diagnoses Order S chedule Referral to Outpatient Referral Routine Spinal stenosis of Or dered: Physical Therapy lumbar region with 02/08 neurogenic claudication Referral to Pain Outpatient Referral Routine Spinal stenosis o f Ordered: and Spine Center lumbar region with 02/08 (Internal only) neurogenic claudication documented as of this encounter Visit Diagnoses Diagnosis Spinal stenosis of lumbar region with ne urogenic claudication Spinal stenosis, lumbar region, with julissa rogenic claudication documented in this encounter
--- OUTSIDE RECORDS SUMMARY | 2020-09-05 03:28 | XMS_ITS | Encounter Summary ---
:1955 Author Organization [facility] Address [address] [place] [address] Care Team Providers Name Role Phone Virgen Constantino MD Primary Care Provider Encounter Details Date Type Department Care Team Description 03/08/2020 Ancillary Procedure Radiology Library at Jonathan Gomes MD [facility] [place] [address] [place] [address] [phone] Social History Tobacco Use Types Packs/Day Years Used Date Former Smoker Smokeless Tobacco: Never Used Comments: Quit in 2017 Alcohol Use Drinks/Week oz/Week Comments Not Currently 14-21 Cans of beer 14.0 - 21.0 1 beer a day Alcohol Habits Answer Date Recorded How often do you have a drink containing 4 or more times a w [place] 08/15/2019 alcohol? How many drinks containing alcohol [...] Diagnosis Comme nts FILM LIBRARY Routine 03/07/2020 12:00 AM Results for this STORAGE ONLY DX EDT procedure ar e in CHEST the results section. documented in this encounter Results Film Library- Storage Only DX Chest (03/07/2020 12:00 AM EDT) Specimen Narrative Performed At This exam is auto-finalizing. It's purpose is for stor age only. YARY OCASIO Performing Organization Address City/State/Zipcode Phone Number YARY OCASIO [place], [place] documented in this encounter Visit Diagnoses Not on filedocumented in this encounter
--- OUTSIDE RECORDS SUMMARY | 2020-09-05 03:28 | XMS_ITS | Encounter Summary ---
:1955 Author Organization [place] [address] Care Team Providers Name Role Phone Virgen Constantino MD Primary Care Provider Encounter Details Date Type Department Care Team Description 01/31/2020 TH Visit Neurology at [facility] Leon Osuna Spinal stenosis of lumbar re gion with neurogenic claudication; (TeleHealth) [facility] MD Valeria Autoimmune necrotizing myopathy [facility] [address] NEUROLOGY DEPT. [phone] [place] [id number] [phone] Social History Tobacco Use Types Packs/Day Years Used Date Former Smoker Smokeless Tobacco: Never Used Comments: Quit in 2017 Alcohol Use Drinks/Week oz/Week Comments Yes 14-21 Cans of beer 14.0 - 21.0 1 beer a day Alcohol Habits Answer Date Recorded How often do you have a drink containing 4 or more times a w [place] 08/15/2019 alcohol? How many drinks containing alcohol do you have 1 or 2 08/15/2019 on a typical day when you are drinking? How often do you have six or more drinks on one Never 08/15/2019 occasion? Sex Assigned at Date Recorded Not on file documented as of this encounter Progress Notes Leon Osuna MD - 01/30/2020 3:00 PM EDTThis is a phone clinic appointment on Jeison Cervantes. 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 He was started on methotrexate and his CK has come down to 342. He has lost a substantial amount of weight which she thinks is all muscle bulk. His weight is presently 228. He is taking prednisone and methotrexate. His liver functions are mildly elevated. He also has a lot of pain in his buttocks and hips and has had some intermittent numbness in his legs and feet. If he tries to walk any distance he gets severe pain in the hips and buttocks and has to sit down. An MRI of his lumbar spine obtained yesterday shows severe central canal stenosis at L3-4 secondary to anterolisthesis disc bulge and facet arthropathy and a subarticular zone disc e xtrusion at L5-S1 which abuts but does not displaced the traversing S1 nerve root. He is severely limited in terms of lifting and crouching. He did have some pulmonary functions performed which were normal with a forced vital capacity of 108%. He is having to urinate 3 times at night and without the Flomax is much 6 times a night. His neurological exam was otherwise He is bright and alert with a normal mental status. Cranial nerves II through XII were intact. Nottestable over the telephone. I will have the patient return for an EMG of his legs possibly 1 arm to better document the spinal stenosis. We will try to make it the same day he comes back to see rheumatology or the same day he returns for a spine clinic appointment. All of his questions were answered. This was a 15-minute phone clinic visit and the patient knows he can be billed for this. We discussed his symptomatic progression, new symptoms, laboratories and possible interventions. documented in this encounter Plan of Treatment Not on filedocumented as of this encounter Visit Diagnoses Diagnosis Spinal stenosis of lumbar region with ne urogenic claudication Spinal stenosis, lumbar region, with julissa rogenic claudication Autoimmune necrotizing myopathy documented in this encounter
--- OUTSIDE RECORDS SUMMARY | 2020-09-05 03:28 | XMS_ITS | Encounter Summary ---
:1955 Author Organization [facility] Address [address] [place] [address] Care Team Providers Name Role Phone Virgen Constantino MD Primary Care Provider Encounter Details Date Type Department Care Team Description 03/08/2020 Ancillary Procedure Radiology Library at Jonathan Gomes MD [facility] [place] [address] [place] [address] [phone] Social History Tobacco Use Types Packs/Day Years Used Date Former Smoker Smokeless Tobacco: Never Used Comments: Quit in 2017 Alcohol Use Drinks/Week oz/Week Comments Not Currently 14-21 Cans of beer 14.0 - 21.0 1 beer a day Alcohol Habits Answer Date Recorded How often do you have a drink containing 4 or more times a w [place] 08/15/2019 alcohol? How many drinks containing alcohol [...] Associated Diagnosis Comme nts FILM LIBRARY Routine 03/08/2020 4:56 PM Results for this STORAGE ONLY DX EDT procedure ar e in CHEST the results section. documented in this encounter Results Film Library- Storage Only DX Chest (03/08/2020 4:56 PM EDT) Specimen Narrative Performed At This exam is auto-finalizing. It's purpose is for stor age only. YARY OCASIO Performing Organization Address City/State/Zipcode Phone Number YARY OCASIO [place], [place] documented in this encounter Visit Diagnoses Not on filedocumented in this encounter
--- OUTSIDE RECORDS SUMMARY | 2020-09-05 03:28 | XMS_ITS | Encounter Summary ---
:1955 Author Organization [facility] [place] [address] Care Team Providers Name Role Phone Virgen Constantino MD Primary Care Provider Encounter Details Date Type Department Care Team Description 02/10/2020 External Results [address]rology at [facility] Leon Osuna MD [facility] [place] [address] NEUROLOGY DEPT. [phone] [place], [place] [address] [phone] Social History Tobacco Use Types Packs/Day Years Used Date Former Smoker Smokeless Tobacco: Never Used Comments: Quit in 2017 Alcohol Use Drinks/Week oz/Week Comments Not Currently 14-21 Cans of beer 14.0 - 21.0 1 beer a day Alcohol Habits Answer Date Recorded How often do you have a drink containing 4 or more times a w [place] 08/15/2019 alcohol? How many drinks containing alcohol [...] Name Priority Date/Time Associated Diagnosis Comme nts EMG SCAN Routine 02/09/2020 documented in this encounter Visit Diagnoses Not on filedocumented in this encounter
--- OUTSIDE RECORDS SUMMARY | 2020-09-05 03:28 | XMS_ITS | Encounter Summary ---
:1955 Author Organization [facility] [place] [address] Care Team Providers Name Role Phone Virgen Constantino MD Primary Care Provider Reason for Visit Auth/Cert Status Reason Specialty Diagnoses / Procedures Referred By Ministerio ontact Referred To Contact Diagnoses Acute hypoxemic respiratory failure RESP. DISTRESS Procedures EMERGENCY IPI Encounter Details Date Type Department Care Team Description 03/08/2020 - Hospital Encounter 1 Jacinta Machado MD [facility] [place] [address] [phone] Acute hypoxemic respiratory failure; [facility] [place] [address] [phone] Muscle weakness of lower extremity Hospital Raymond Hernandez DO [place] [address] [phone] [place] [id number] Social History Tobacco Use Types Packs/Day Years Used Date Former Smoker Smokeless Tobacco: Never Used Comments: Quit in 2017 Alcohol Use Drinks/Week oz/Week Comments Not Currently 14-21 Cans of beer 14.0 - 21.0 1 beer a day Alcohol Habits Answer Date Recorded How often do you have a drink containing 4 or more times a w [place] 08/15/2019 alcohol? How many drinks containing alcohol do you have 1 or 2 08/15/2019 on a typical day when you are drinking? How often do you have six or more drinks on one Never 08/15/2019 occasion? Sex Assigned at Date Recorded Not on file documented as of this encounter Last Filed Vital Signs Vital Sign Reading Time Taken Comments Blood Pressure 101/69 03/22/2020 10:18 AM EDT Pulse 93 03/20/2020 8:07 AM EDT Temperature 36.8 ??C (98.2 ??F) 03/22/2020 10:18 AM EDT Respiratory Rate 16 03/22/2020 10:18 AM EDT Oxygen Saturation 91% 03/22/2020 10:18 AM EDT Inhaled Oxygen Concentration - - Weight 95.1 kg (209 lb 10.5 oz) 03/17/2020 6:00 AM EDT Height 177.8 cm (5' 10) 03/15/2020 6:00 AM EDT Body Mass Index 30.08 03/15/2020 6:00 AM EDT documented in this encounter Discharge Summaries Raymond Hernandez DO - 03/22/2020 12:54 PM EDT Discharge Summary Patient Name: Jeison Cervantes Patient Age: 64 y.o. Birthdate: 1955 Admit date: 03/08/2020 Discharge date and time: 03/22/2020 Attending Physician: Raymond Hernandez DO Follow-up Recommendations for Providers: -Recommend follow-up BMP to check a sodium level within 1 week. -Currently not on his methotrexate and CellCept as he has a steroid taper. Currently taking 20mg Prednisone and will continue until he follows up with Rheumatology. -Last dose of Bactrim should be on March 29 for a total of a 21-day course. After this he will need to be transitioned to double the strength Bactrim to be taken Thursday, Thursday and Thursday as long as he is on Prednisone strengths equal to or greater than 20mg as prophylaxis. - He should take his calcium and vitamin D while on steroids. - Take your Protonix 40mg daily while your still on the combination of steroids, ibuprofen and bloodthinner. It can be readdressed once these medications are stopped. Patient Instructions Instruction after leaving the hospital Why you were hospitalized: Pneumonia Call your doctor or seek medical attention if you develop the following: Call your doctor or seek medical attention if you experience any alarming symptoms. This may include, but is not limited to, fever, chest pain, severe shortness of breath, nausea with vomiting, persistent decrease in your urinaryoutput, severe pain, or any other concerning symptoms. Activity level: As tolerated. Diet: No new restrictions. Driving: Please do not drive if you feel lightheaded, dizzy, faint, or taking any opioids/narcotics (i.e oxycodone). It is advisable that you do not drive till you follow-up with your primary care physician. Shower/Bath: No new restrictions. Home Oxygen therapy: Please wear your oxygen as high as needed to keep your O2 levels above 87% Patient Instructions: - Please attend all follow-up appointments. - You have an appointment with your PCP office on 03/27/2020 at 9:20am - You will also have a rheumatology appointment that is going to be scheduled - You should receive a phone call from [facility] for follow up of the Myositis - Please take all medications as prescribed. - You will be taking the Bactrim everyday until March 29, 2020 - After you are done with the daily Bactrim you'll be taking it at double strength, Thursday, Thursday and Thursday, while on prednisone doses equal to or greater than 20mg - Please keep taking your Prednisone 20mg daily until you follow up with the Bond Broker - Be sure to take your vitamin D and Calcium supplements - Take your Protonix 40mg daily while your still on the combination of steroids, ibuprofen and blood thinner. It can be readdressed once these medications are stopped. Changes in Your Medications: New Medications: Your Medications New Medications Dose Details insulin glargine Soln Inject 5 Units subcutaneously daily for 30 days. 5 Units Refills: 0 insulin lispro Soln Commonly known as: HumaLOG Give QAC and QHS; BG 140 - 160 Give 3 units, BG 161 - 200 Give 6 units, BG 201 - 240 Give 9 units, BG >240, give 12 units Refills: 12 pantoprazole EC 40 mg Tbec Commonly known as: Protonix Take 1 tablet by mouth daily. 40 mg Quantity: 90 tablet Refills: 3 polyethylene glycoL 17 gram Pwpk Commonly known as: Miralax Take 17 g by mouth 2 times daily as needed. 17 g Quantity: 14 each Refills: 0 predniSONE 20 mg Tab Commonly known as: Deltasone Take 1 tablet by mouth daily for 30 days. Start taking on: March 23, 2020 20 mg Quantity: 30 tablet Refills: 1 senna-docusate 8.6-50 mg Tab Commonly known as: Pericolace Take 2 tablets by mouth 2 times daily. Hold for loose stools 2 tablet Quantity: 60 tablet Refills: 11 simethicone 80 mg Chew Commonly known as: Mylicon Take 0.5 tablets by mouth every 6 hours as needed. 40 mg Quantity: 30 tablet Refills: 0 * sulfamethoxazole-trimethoprim DS 800-160 mg Tab Commonly known as: Bactrim DS Take 3 tablets by mouth 3 times daily for 7 days. 3 tablet Quantity: 63 tablet Refills: 0 * sulfamethoxazole-trimethoprim DS 800-160 mg Tab Commonly known as: Bactrim DS Take 4 tablets by mouth three times a week. Start taking on: March 30, 2020 4 tablet Quantity: 60 tablet Refills: 0 * This list has 2 medication(s) that are the same as other medications prescribed for you. Read thedirections carefully, and ask your doctor or other care provider to review them with you. Continued medications with new dosing Dose Details folic acid 1 mg Tab Commonly known as: Folvite Take 1 tablet by mouth daily. What changed: ?? how much to take ?? when to take this 1,000 mcg Quantity: 90 tablet Refills: 3 Continued medications, unchanged Dose Details calcium carbonate 648 mg calcium Tab Take 650 mg by mouth 3 times daily (with meals). 650 mg Refills: 0 cholecalciferol (Vitamin D3) 50 mcg (2,000 unit) Cap Take by mouth. Generic drug: cholecalciferol (Vitamin D3) Refills: 0 FINASTERIDE ORAL Take 5 mg by mouth daily. 5 mg Refills: 0 ibuprofen 400 mg Tab Commonly known as: Advil;Motrin Take 400 mg by mouth every 6 hours as needed for Pain. 400 mg Refills: 0 magnesium 250 mg Tab Take 500 mg by mouth daily. 500 mg Refills: 0 tamsulosin 0.4 mg Cap Commonly known as: Flomax Take 0.4 mg by mouth daily. 0.4 mg Refills: 0 Xarelto 20 mg Tab Take 20 mg by mouth daily. Generic drug: rivaroxaban 20 mg Refills: 0 STOPPED Medications metHOTREXate 2.5 mg Tab methylPRED DP 4 mg Dspk Generic drug: methylPREDNISolone mycophenolate 500 mg Tab Commonly known as: CELLCEPT Medication dose changes: Stop these medications: Follow-Up Appointments Future Appointments Date Time Provider Department Center 05/16/2020 10:00 AM Leon Osuna MD [facility] NEURO [facility] Date and Time Provider and Specialty Location 03/27/2020 at 9:20am Talon Constantino MD , PCP With SOCIAL WORK LECTURER Son Fernandes [address] [facility] [id number] Your Inpatient Doctor(s) at [facility]: DO Dori Hinton MD Your Primary Care Provider: Talon Constantino MD [address] [facility] [id number] For questions regarding this document or issues relating to this hospitalization on the Hospital Medicine Service, please contact the on-call Hospitalist through the [facility] [employer] . DO NOT attempt to contact your care team through the nurse's station. Future Appointments and Orders Future Appointments and Orders Future Appointments Provider Department Dept Phone 05/16/2020 10:00 AM Leon Osuna MD Neurology at [facility] Arrive at: Home [phone] Please do not come in for this visit. Your provider will call you at the number you provided. Future Orders Complete By Expires Full code [COD2 Custom] As directed Process Instructions: 1. Completing this order indicates that the recording provider had a discussion with the patient and/or their agent regarding their wishes for resuscitation. 2. If the patient does not have decision making capacity, the provider must document within the order and in the contemporaneous progress note which of the patient's agents the discussion was held with. 3. If this Full Code Order is a revocation or cancellation of a previous DNR order and the provider recording this order in the system is not the Attending of Record, then the recording provider will have discussed this order with the Attending of Record and is documenting the decision of the Attending of Record obtained through explicit verbal review. Scheduling Instructions: Questions: Does patient have capacity to make decision: Yes Content of discussion: Referral to Home Health - at DISCHARGE [[id number] CPT(R)] As directed Process Instructions: Scheduling Instructions: Comments: DOCUMENTATION FOR VNA SERVICES (INCLUDING THOSE PATIENTS WITH MEDICARE COVERAGE REQUIRING HOME VNA SERVICES AND/OR HOSPICE SERVICES) PATIENT'S LOCATION: Jeison Cervantes [facility] [place] [phone] (home) Cell: Telephone Information: Rn Burn's Name: pt/ Debora In discussion with the attending physician, it is certified that this patient is under their care and that they, or a Nurse Practitioner,Clinical Nurse specialist or Physician Guest Service Agent who is working directly with them, had a face to face encounter that meets the physician face to face encounter requirements with this patient on 03/22/2020 The encounter with the patient was in whole, or in part, for the following medical condition, which is the primary reason for home health care services: increasing weakness, new resp issues, chronic autoimmune dx In discussion with the provider, it is certified that, based on their findings, the following services are medically necessary for home health services. To provide the following care/treatments with the clinical findings supporting the need for servicesas follows: HOME CARE ORDERS: RN ORDERS: vital signs, cardiopulmonary status, nutrition, hydration, elimination, meds effectiveness and management; reinforce education re health issues, possible new cpap, medications, assess for clinical appeals auditor for community resources PT ORDERS: Continue rehab for endurance, gait stability and strength with mobility and transfers. Home safety evaluation. Home exercise program if appropriate. OT: assess and continue rehab for managing ADL's. HOME HEALTH CARE AGENCY: [facility]. PHONE: [phone] FAX: [phone] Start of care: 24-48 hours of dc FOR MEDICARE ONLY: (please delete this section if not Medicare) In discussion with the attending physician, it is certified that the clinical findings support that this patient is homebound because absences from home require considerable and taxing effort due to: Medically contraindicated due to immunosuppression and increased risk of infection Unable to ambulate community surfaces or distances unassisted due to pain, LE weakness or decreased balance and risk for falls Unsteady Gait, poor balance , requiring assistive devices and/or assistance of another Please note that any additional orders needs or changes will need to be obtained from this patient'sPCP: Talon Constantino MD [address] [facility] / [facility] [id number] All VNA agencies which cover the area of patient's residence have been reviewed, either verbally or in writing, and patient/family have chosen the home health care agency noted Questions: Agency name and contact information: [facility] Patient location post discharge: home What services are requested: Registered Nurse Physical Therapy Social Work Occupational Therapy Start date: Responsible MD post discharge contact info: PCP Discharge Diagnoses (Hospital Problems) and Secondary Diagnoses (Chronic Problems): Active Hospital Problems Diagnosis ??? Acute hypoxemic respiratory failure Resolved Hospital Problems No resolved problems to display. Patient ID: Jeison Cervantes is a 64 y.o. male with PMH autoimmune necrotizing myopathy (treated with methotrexate, cellcept,??and chronic steroids), severe spinal stenosis of L3-L4, DVT (on xarelto)??who is admitted to [facility] for hypoxemic respiratory failure secondary to PJP pneumonia Operations/Major Procedures: Procedures This Admission: Brief HPI and Hospital Course: #PJP Pneumonia: Pt initially presented to [facility] for shortness of breath, fever, and myalgias. He was ruled-out for COVID. CT chest concerning for GGOs predominantly in mid-upper lung zones and pt was notably not given PJP prophylaxis while immunosuppressed. He was transferred to [facility] 03/08 for hypoxemicrespiratory failure. On 03/09 The patient was intubated and bronchoscopy was performed on 03/09, and BAL revealed PJP pneumonia. The patient was subsequently extubated 03/11, but continued to require high-flow NC and CPAP with high FiO2 requirements. He was started on prednisone taper and Bactrim IV 15mg/ kg/day on 03/08, transitioned to PO 03/14. He was weaned to O2 nasal cannula on 03/17. He was transferredto a general medicine floor on 03/18. He was continued on his P LING treatment without any issue. Hisoxygen requirements were weaned down from 6 L down to 2 to 3 L during the day. Has not required anynoninvasive measures to deliver oxygen. Constipation has been a problem, after aggressive treatment he was able to move his bowels. #Autoimmune necrotizing myopathy: Held home immunosuppression medications. Cellcept and methotrexateto be restarted after completion of PJP treatment (03/29). Continuing prednisone taper as above. Referral was made out to [facility]. He should be getting a phone call from them in the future. He also will have a follow up appointment with Rheumatology. #Hyponatremia: Urine studies suggestive of SIADH. Monitoring fluid intake to ensure it is not excessive. Started salt tablets. His sodium stabilized in the low 130s. #History of DVT: continued on Xarelto Important Studies and Lab Data: Recent Labs 03/21/20 0510 03/20/20 0444 03/19/20 0816 03/18/20 0500 03/17/20 0122 WBC 7.1 8.2 9.8* 8.6 7.7 HGB 11.1* 10.7* 10.5* 11.0* 10.1* PLATELET 240 267 278 273 259 Recent Labs 03/21/20 0510 03/20/20 0444 03/19/20 0404 03/18/20 0500 03/17/20 0122 NA 130* 129* 130* 129* 130* K 4.3 4.4 4.5 4.7 4.9 CL 93* 93* 93* 91* 92* CO2 24 26 27 29 25 BUN 14 14 20 22* 19 CREATININE 0.74* 0.68* 0.63* 0.71* 0.64* Recent Labs 03/21/20 0510 03/20/20 0444 03/19/20 0404 CALCIUM 9.2 9.2 9.4 No results for input(s): CK, TROPONINT in the last 168 hours. No results for input(s): AST, ALT, ALKPHOS, BILITOT, BILIDIR in the last 168 hours. No results for input(s): INR in the last 168 hours. Recent Labs 03/08/20 2200 HA1C 8.8* Microbiology: Date Specimen Findings Studies: Results for orders placed or performed during the hospital encounter of 03/08/20 XR Abdomen 1 view (Generic) (Exam End: 03/09/2020 9:40 PM) Impression OG tube tip in the proximal stomach with sidehole at the distal esophagus. Thank you for letting us participate in the care of this patient. For questions regarding this report, please contact the number below. Abdomen 1 view (Generic) (Exam End: 03/10/2020 1:28 AM) Impression OG tube terminates within the stomach, with sidehole past the GE junction. Thank you for letting us participate in the care of this patient. For questions regarding this report, please contact the number below. Chest One View (Exam End: 03/10/2020 4:03 AM) Impression Grossly unchanged multifocal pulmonary opacities that may represent any combination of pulmonary edema, ARDS, and/or atypical/multifocal pneumonia. I have personally reviewed the image(s) and the resident's interpretation and agree with the findings, Yanet Connell at 03/10/2020 4:25 AM Thank you for letting us participate in the care of this patient. For questions regarding this report, please contact the number below. Chest One View (Exam End: 03/11/2020 11:43 PM) Impression No significant interval change in the multifocal pulmonary opacities. Thank you for letting us participate in the care of this patient. For questions regarding this report, please contact the number below. Abdomen 1 view (Generic) (Exam End: 03/15/2020 9:54 AM) Impression Normal bowel gas pattern. Thank you for letting us participate in the care of this patient. For questions regarding this report, please contact the number below. Pending Studies and Lab Data: Vital signs at Discharge: Patient Vitals for the past 8 hrs: BP Temp Temp src Resp SpO2 03/22/20 1018 101/69 36.8 ??C (98.2 ??F) Oral 16 91 % 03/22/20 0340 101/68 36.9 ??C (98.4 ??F) Oral 18 90 % [facility] Discharge Medications: Your Medications New Medications Dose Details insulin glargine Soln Inject 5 Units subcutaneously daily for 30 days. 5 Units Refills: 0 insulin lispro Soln Commonly known as: HumaLOG Give QAC and QHS; BG 140 - 160 Give 3 units, BG 161 - 200 Give 6 units, BG 201 - 240 Give 9 units, BG >240, give 12 units Refills: 12 pantoprazole EC 40 mg Tbec Commonly known as: Protonix Take 1 tablet by mouth daily. 40 mg Quantity: 90 tablet Refills: 3 polyethylene glycoL 17 gram Pwpk Commonly known as: Miralax Take 17 g by mouth 2 times daily as needed. 17 g Quantity: 14 each Refills: 0 predniSONE 20 mg Tab Commonly known as: Deltasone Take 1 tablet by mouth daily for 30 days. Start taking on: March 23, 2020 20 mg Quantity: 30 tablet Refills: 1 senna-docusate 8.6-50 mg Tab Commonly known as: Pericolace Take 2 tablets by mouth 2 times daily. Hold for loose stools 2 tablet Quantity: 60 tablet Refills: 11 simethicone 80 mg Chew Commonly known as: Mylicon Take 0.5 tablets by mouth every 6 hours as needed. 40 mg Quantity: 30 tablet Refills: 0 * sulfamethoxazole-trimethoprim DS 800-160 mg Tab Commonly known as: Bactrim DS Take 3 tablets by mouth 3 times daily for 7 days. 3 tablet Quantity: 63 tablet Refills: 0 * sulfamethoxazole-trimethoprim DS 800-160 mg Tab Commonly known as: Bactrim DS Take 4 tablets by mouth three times a week. Start taking on: March 30, 2020 4 tablet Quantity: 60 tablet Refills: 0 * This list has 2 medication(s) that are the same as other medications prescribed for you. Read thedirections carefully, and ask your doctor or other care provider to review them with you. Continued medications with new dosing Dose Details folic acid 1 mg Tab Commonly known as: Folvite Take 1 tablet by mouth daily. What changed: ?? how much to take ?? when to take this 1,000 mcg Quantity: 90 tablet Refills: 3 Continued medications, unchanged Dose Details calcium carbonate 648 mg calcium Tab Take 650 mg by mouth 3 times daily (with meals). 650 mg Refills: 0 cholecalciferol (Vitamin D3) 50 mcg (2,000 unit) Cap Take by mouth. Generic drug: cholecalciferol (Vitamin D3) Refills: 0 FINASTERIDE ORAL Take 5 mg by mouth daily. 5 mg Refills: 0 ibuprofen 400 mg Tab Commonly known as: Advil;Motrin Take 400 mg by mouth every 6 hours as needed for Pain. 400 mg Refills: 0 magnesium 250 mg Tab Take 500 mg by mouth daily. 500 mg Refills: 0 tamsulosin 0.4 mg Cap Commonly known as: Flomax Take 0.4 mg by mouth daily. 0.4 mg Refills: 0 Xarelto 20 mg Tab Take 20 mg by mouth daily. Generic drug: rivaroxaban 20 mg Refills: 0 STOPPED Medications metHOTREXate 2.5 mg Tab methylPRED DP 4 mg Dspk Generic drug: methylPREDNISolone mycophenolate 500 mg Tab Commonly known as: CELLCEPT Updated Allergies/ADRs: Allergies Allergen Reactions ??? Cat Dander ??? Dog Dander ??? Hay [Grass Poll[place], Standard] For questions regarding this document or issues relating to this hospitalization on the Medical Service, please contact your inpatient physician through the [facility] [employer] . Issues after hours and on weekends will be handled by the staff on-call. Signed: Dori Peña MD documented in this encounter Discharge Instructions Patient InstructionsDori Peña MD - 03/22/2020 9:06 AM EDT Instruction after leaving the hospital Why you were hospitalized: Pneumonia Call your doctor or seek medical attention if you develop the following: Call your doctor or seek medical attention if you experience any alarming symptoms. This may include, but is not limited to, fever, chest pain, severe shortness of breath, nausea with vomiting, persistent decrease in your urinaryoutput, severe pain, or any other concerning symptoms. Activity level: As tolerated. Diet: No new restrictions. Driving: Please do not drive if you feel lightheaded, dizzy, faint, or taking any opioids/narcotics (i.e oxycodone). It is advisable that you do not drive till you follow-up with your primary care physician. Shower/Bath: No new restrictions. Home Oxygen therapy: Please wear your oxygen as high as needed to keep your O2 levels above 87% Patient Instructions: - Please attend all follow-up appointments. - You have an appointment with your PCP office on 03/27/2020 at 9:20am - You will also have a rheumatology appointment that is going to be scheduled - You should receive a phone call from [facility] for follow up of the Myositis - Please take all medications as prescribed. - You will be taking the Bactrim everyday until March 29, 2020 - After you are done with the daily Bactrim you'll be taking it at double strength, Thursday, Thursday and Thursday, while on prednisone doses equal to or greater than 20mg - Please keep taking your Prednisone 20mg daily until you follow up with the Bond Broker - Be sure to take your vitamin D and Calcium supplements - Take your Protonix 40mg daily while your still on the combination of steroids, ibuprofen and blood thinner. It can be readdressed once these medications are stopped. Changes in Your Medications: New Medications: Your Medications New Medications Dose Details insulin glargine Soln Inject 5 Units subcutaneously daily for 30 days. 5 Units Refills: 0 insulin lispro Soln Commonly known as: HumaLOG Give QAC and QHS; BG 140 - 160 Give 3 units, BG 161 - 200 Give 6 units, BG 201 - 240 Give 9 units, BG >240, give 12 units Refills: 12 pantoprazole EC 40 mg Tbec Commonly known as: Protonix Take 1 tablet by mouth daily. 40 mg Quantity: 90 tablet Refills: 3 polyethylene glycoL 17 gram Pwpk Commonly known as: Miralax Take 17 g by mouth 2 times daily as needed. 17 g Quantity: 14 each Refills: 0 predniSONE 20 mg Tab Commonly known as: Deltasone Take 1 tablet by mouth daily for 30 days. Start taking on: March 23, 2020 20 mg Quantity: 30 tablet Refills: 1 senna-docusate 8.6-50 mg Tab Commonly known as: Pericolace Take 2 tablets by mouth 2 times daily. Hold for loose stools 2 tablet Quantity: 60 tablet Refills: 11 simethicone 80 mg Chew Commonly known as: Mylicon Take 0.5 tablets by mouth every 6 hours as needed. 40 mg Quantity: 30 tablet Refills: 0 * sulfamethoxazole-trimethoprim DS 800-160 mg Tab Commonly known as: Bactrim DS Take 3 tablets by mouth 3 times daily for 7 days. 3 tablet Quantity: 63 tablet Refills: 0 * sulfamethoxazole-trimethoprim DS 800-160 mg Tab Commonly known as: Bactrim DS Take 4 tablets by mouth three times a week. Start taking on: March 30, 2020 4 tablet Quantity: 60 tablet Refills: 0 * This list has 2 medication(s) that are the same as other medications prescribed for you. Read thedirections carefully, and ask your doctor or other care provider to review them with you. Continued medications with new dosing Dose Details folic acid 1 mg Tab Commonly known as: Folvite Take 1 tablet by mouth daily. What changed: ?? how much to take ?? when to take this 1,000 mcg Quantity: 90 tablet Refills: 3 Continued medications, unchanged Dose Details calcium carbonate 648 mg calcium Tab Take 650 mg by mouth 3 times daily (with meals). 650 mg Refills: 0 cholecalciferol (Vitamin D3) 50 mcg (2,000 unit) Cap Take by mouth. Generic drug: cholecalciferol (Vitamin D3) Refills: 0 FINASTERIDE ORAL Take 5 mg by mouth daily. 5 mg Refills: 0 ibuprofen 400 mg Tab Commonly known as: Advil;Motrin Take 400 mg by mouth every 6 hours as needed for Pain. 400 mg Refills: 0 magnesium 250 mg Tab Take 500 mg by mouth daily. 500 mg Refills: 0 tamsulosin 0.4 mg Cap Commonly known as: Flomax Take 0.4 mg by mouth daily. 0.4 mg Refills: 0 Xarelto 20 mg Tab Take 20 mg by mouth daily. Generic drug: rivaroxaban 20 mg Refills: 0 STOPPED Medications metHOTREXate 2.5 mg Tab methylPRED DP 4 mg Dspk Generic drug: methylPREDNISolone mycophenolate 500 mg Tab Commonly known as: CELLCEPT Medication dose changes: Stop these medications: Follow-Up Appointments Future Appointments Date Time Provider Department Center 05/16/2020 10:00 AM Leon Osuna MD [facility] Date and Time Provider and Specialty Location 03/27/2020 at 9:20am Talon Constantino MD , PCP With SOCIAL WORK LECTURER Son Fernandes [address] [facility] [address] Your Inpatient Doctor(s) at [facility]: DO Dori Hinton MD Your Primary Care Provider: Talon Constantino MD [address] [facility] [address] For questions regarding this document or issues relating to this hospitalization on the Hospital Medicine Service, please contact the on-call Hospitalist through the [facility] Reaming Machine Operator For Plastic . DO NOT attempt to contact your care team through the nurse's station. Additional InstructionsCanLakeisha nguyen, [facility] - 03/22/2020Follow up appointment 03/27/2020 9:20 office visit documented in this encounter Medications at Time of Discharge Medication Sig Dispensed Refills Start Date End Date simethicone (Mylicon) Take 0.5 tablets by 30 tablet 0 03/22 80 mg Tablet, Chewable mouth every 6 hours as needed. polyethylene glycoL Take 17 g by mouth 2 14 each 0 2019 (Miralax) 17 gram times daily as needed. Powder in Packet senna-docusate Take 2 tablets by mouth 60 tablet 11 03/22/20 20 (Pericolace) 8.6-50 mg 2 times daily. Hold for Tablet loose stools insulin lispro Give QAC and QHS; BG 12 03/22/2020 (HumaLOG) Solution 140 - 160 Give 3 units, BG 161 - 200 Give 6 units, BG 201 - 240 Give 9 units, BG >240, give 12 units pantoprazole EC Take 1 tablet by mouth 90 tablet 3 03/22/20 20 (Protonix) 40 mg daily. Tablet, Delayed Release (E.C.) finasteride (Proscar) Take 5 mg by mouth 0 5 mg Tablet daily. magnesium 250 mg Take 500 mg by mouth 0 Tablet daily. Xarelto 20 mg Tablet Take 20 mg by mouth 0 2019 daily. tamsulosin (FLOMAX) Take 0.8 mg by mouth 0 0.4 mg Capsule daily. ibuprofen Take 400 mg by mouth 0 (ADVIL;MOTRIN) 400 mg every 6 hours as needed Tablet for Pain. sulfamethoxazole-trime Take 3 tablets by mouth 63 tablet 0 03/22/2020 03/29/2020 thoprim DS (Bactrim 3 times daily for 7 DS) 800-160 mg Tablet days. predniSONE (Deltasone) Take 1 tablet by mouth 30 tablet 1 0 03/23/2020 04/22/2020 20 mg Tablet daily for 30 days. insulin glargine Inject 5 Units 0 03/22/2020 080 04/2020 Solution subcutaneously daily for 30 days. sulfamethoxazole-trime Take 4 tablets by mouth 60 tablet 0 03/30/2020 08/30/2020 thoprim DS (Bactrim three times a week. DS) 800-160 mg Tablet folic acid (Folvite) 1 Take 1 tablet by mouth 90 tablet 3 0 12/05/2019 08/30/2020 mg Tablet daily. documented as of this encounter Progress Notes Joyce Ibarra RN - 03/22/2020 12:[address] [facility] via ambulance. Report given to Zabrina. Pt sent with yellow folder. aymond Marin DO - 03/22/2020 12:53 PM EDT HOSPITAL MEDICINE ATTENDING DAY OF DISCHARGE NOTE Patient Jeison Cervantes 1955 [id number] Physician Raymond Hernandez DO Pager: [phone] Hospitalist Encounter Date March 22, 2020 PCP Talon Constantino MD PCP phone [phone] Discharge diagnosis Active Hospital Problems Diagnosis ??? Acute hypoxemic respiratory failure Resolved Hospital Problems No resolved problems to display. Secondary Issues Active Non-Hospital Problems Diagnosis ??? Spinal stenosis of lumbar region ??? Muscle weakness of lower extremity ??? Venous insufficiency of left lower extremity ??? 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 Continue steroids. I have personally seen and examined the patient and they are ready for discharge. I spent >30 minutes (Day of Discharge Code 73398) involved in the final examination of the patient, discussion of the hospital stay, instructions for continuing care to all relevant caregivers, and preparation of discharge records, prescriptions and referral forms. Plans Discharge to acute rehabilitation Follow-up scheduled with Future Appointments Date Time Provider Department Center 05/16/2020 10:00 AM Leon Osuna MD [facility] Please see the Discharge Summary for complete details of any medication changes and additional plans. Raymond Hernandez DO Pager: [phone] March 22, 2020 9:00 PM Iliana Conley RN - 03/22/2020 9:30 AM Yvrose reviewed, care reviewed with primary team and at interdisciplinary rounds. PT is medically ready for discharge to [facility] rehab. Confirmed with [facility] and they are able to admit him to there today. Pt notified of planned DC to [facility], MDs notified of 1230 pickle pumper time, as well as pts RN on the floor. Pt has no identified barriers to accessing the necessary care and or follow up at discharge and has supports in place to achieve a safe discharge from [facility] Will be transported via : [facility] at 1230. This plan was formulated with input from patient, family and team. All are in agreement with plan. Trudi Robertson - 03/22/2020 8:51 AM EDTOcodyice of Care Management/Printing Pressman Patient Name: Jeison Cervantes : 1955 Patient has been offered a swing bed at [facility] arranged for a 1230 transport. Ambulance will need: Medicare ambulance form completed and signed (MD or Air/Ocean Export Clerk RN/STORE STOCK HELP) Copy of patient demographics [place] Out of Hospital DNR/DNI order, if active No MD to MD report necessary or MD to MD report to Dr Mason at [phone] Please call Nursing Report to [phone], ask for door glass installer. Info to accompany patient: Narcotic Prescriptions Copies of Medication Administration Records and IV sheets for past 10 days. Plan: Printing Pressman will be available to the patient and Air/Ocean Export Clerk-RN and/or Social Workerfor further assistance. Patient will be discharged to: [address] [place] [address] Cheyenne Bryan Iliana Conley RN - 03/21/2020 2:49 PM SOLEDADTPtara Denny, pt is able to tolerate an acute rehab and is agreeable to the following referrals to be placed. [facility] has no beds today and they may be able to take pt tomorrow, pending his insurance auth, [facility] they are not going for as of now, as they cannot offer a bed today. Based on discussions with the multi-disciplinary healthcare team, the patient would benefit from ACUTE/SWING level of care at discharge. ?? I have met with the patient to discuss discharge planning needs. I have provided the [facility], Office of Care Management letter from the [employer] pertaining to rehab referrals. If patient chooses any or our affiliates, I will provide a letter describing our affiliations within the [facility]. I have provided information on the right to choose where referrals are placed. ?? I reviewed the different levels of rehab including SNF, swing, acute and LTAC. ?? I provided a list with quality rating from Medicare.gov of facilities from within the preferred geographic area. ?? I have requested that the patient provide at least three choices for referral. ?? The patient requested referrals to: 1. [facility] ?? PHONE: [phone] FAX: [phone] 2.[facility] PHONE: [phone] FAX: [phone] Nurse to Nurse report: [phone] [address] [place] [id number] ? Expected date of discharge: 03/22/20 Note routed to Printing Pressman who will communicate referrals to facilities and provide any required information. Dori guillen MD - 03/21/2020 6:39 AM EDT Inpatient Medicine Progress Note ID: Jeison Cervantes is a 64 y.o. male w/ PMH of autoimmune necrotizing myopathy (treated with methotrexate, cellcept,??and chronic steroids), severe spinal stenosis of L3-L4, DVT (on xarelto) admittedfor hypoxemic respiratory failure secondary to PJP pneumonia 24 hr events: - No acute events overnight - Cont. 21 day course of bactrim - Working with PT/OT - likely to go to rehab facility - Soap and suds enema given yesterday without success - Continues to be constipated with abdominal pain - Patient did well on 5L NC last evening Meds: Continuous Infusions: Scheduled Meds: ??? insulin lispro 3-12 Units Subcutaneous Q4H KORINA ??? polyethylene glycoL (MIRALAX) oral powder 17 g Oral BID ??? sodium chloride 1 g Oral TID ??? insulin glargine 5 Units Subcutaneous Q24H ??? senna-docusate 2 tablet Oral BID ??? sulfamethoxazole-trimethoprim DS 3 tablet Oral BID And ??? sulfamethoxazole-trimethoprim DS 4 tablet Oral Nightly ??? melatonin 6 mg Oral Nightly ??? predniSONE 20 mg Oral Daily ??? rivaroxaban 20 mg Oral Daily ??? folic acid 1 mg Oral Daily ??? finasteride 5 mg Oral Daily ??? tamsulosin 0.4 mg Oral Daily PRN Meds:.simethicone, sodium chloride, glucose 40% oral geL OR dextrose 10% OR glucagon (human recombinant), ondansetron, bisacodyL, acetaminophen Vital Signs: Last value Range last 24 hrs Temperature Temp: 36.5 ??C (97.7 ??F) Temp: [36.5 ??C (97.7 ??F)-37 ??C (98.6 ??F)] Heart Rate Heart Rate: 93 Heart Rate: -- Blood Pressure BP: 99/66 BP: (99-108)/(65-69) Respiratory Rate Resp: 15 Resp: [15-22] SpO2 SpO2: 94 % SpO2: [89 %-97 %] Patient Vitals for the past 168 hrs: Weight 03/17/20 0600 95.1 kg (209 lb 10.5 oz) 03/16/20 0600 98 kg (216 lb 0.8 oz) 03/15/20 0600 104.3 kg (229 lb 15 oz) I/O: Intake/Output Summary (Last 24 hours) at 03/21/2020 1021 Last data filed at 03/21/2020 0852 Gross per 24 hour Intake 480 ml Output 1050 ml Net -570 ml cumulative I/O's since admission: Physical Exam: Gen: Up in chair; alert, oriented, interactive HEENT: anicteric, MMM CV: RRR, normal S1/S2, no S3/S4, no m/r/g, Resp: CTAB with some increased work of breathing Abd: +BS, soft, NT, ND, no HSM, no masses Ext: WWP, no cyanosis, no clubbing, 2+ DP pulses, no edema. Muscle atrophy in b/l quadriceps Neuro: no focal deficits noted, CN II-XII grossly intact, moves all extremities spontaneously Labs Recent Labs 03/21/20 0510 03/20/20 0444 03/19/20 0816 WBC 7.1 8.2 9.8* HGB 11.1* 10.7* 10.5* HCT 34.2* 32.2* 32.0* PLATELET 240 267 278 Recent Labs 03/21/20 0510 03/20/204 03/19/20 0404 NA 130* 129* 130* K 4.3 4.4 4.5 CL 93* 93* 93* CO2 24 26 27 BUN 14 14 20 CREATININE 0.74* 0.68* 0.63* No results for input(s): AST, ALT, ALKPHOS, BILITOT, BILIDIR in the last 168 hours. Recent Labs 03/21/20 0510 03/20/204 03/19/20 0404 03/15/20 0040 CALCIUM 9.2 9.2 9.4 < > 9.3 MAGNESIUM -- -- -- -- 0.89 PHOS -- -- -- -- 3.1 < > = values in this interval not displayed. No results for input(s): INR, PT, PTT in the last 168 hours. Recent Labs 03/15/20 0040 CK 25 Recent Labs 03/21/20 0647 03/21/20 0428 03/21/20 0017 03/20/20 2044 03/20/20 1627 03/20/20 1142 POCGLU 96 92 88 105 196 106 No results for input(s): PROBNP in the last 168 hours. Imaging/Studies: Results for orders placed or performed during the hospital encounter of 03/08/20 XR Abdomen 1 view (Generic) (Exam End: 03/09/2020 9:40 PM) Impression OG tube tip in the proximal stomach with sidehole at the distal esophagus. Thank you for letting us participate in the care of this patient. For questions regarding this report, please contact the number below. Abdomen 1 view (Generic) (Exam End: 03/10/2020 1:28 AM) Impression OG tube terminates within the stomach, with sidehole past the GE junction. Thank you for letting us participate in the care of this patient. For questions regarding this report, please contact the number below. Electronically signed by: [facility] ([phone]), at 03/10/2020 1:40 AM XR Chest One View (Exam End: 03/10/2020 4:03 AM) Impression Grossly unchanged multifocal pulmonary opacities that may represent any combination of pulmonary edema, ARDS, and/or atypical/multifocal pneumonia. I have personally reviewed the image(s) and the resident's interpretation and agree with the findings, Yanet Connell at 03/10/2020 4:25 AM Thank you for letting us participate in the care of this patient. For questions regarding this report, please contact the number below. Chest One View (Exam End: 03/11/2020 11:43 PM) Impression No significant interval change in the multifocal pulmonary opacities. Thank you for letting us participate in the care of this patient. For questions regarding this report, please contact the number below. Abdomen 1 view (Generic) (Exam End: 03/15/2020 9:54 AM) Impression Normal bowel gas pattern. Thank you for letting us participate in the care of this patient. For questions regarding this report, please contact the number below. Assessment: 64 y.o. male w/ PMH of autoimmune necrotizing myopathy (treated with methotrexate, cellcept,??and chronic steroids), severe spinal stenosis of L3-L4, DVT (on xarelto) for hypoxemic respiratory failure secondary to PJP pneumonia The patient has stated well in the low 90s overnight on 5L NC. This morning he successfully decreased to 3L and has been tolerating well. However, does destat with activity. Continuing to hold cellceptand MXT. Tapering prednisone. Will continue PO Bactrim for PJP PNA (21 day course). Constipation hasbeen a problem, despite enema yesterday. He is becoming more painful in the abdomen and has a decrease appetite. Additionally, nurse noted he had some emesis this morning after a few bites of breakfast. PRN soaps and suds enemas today with 30mg lactulose, with good effect. Patient has had several large BMs and feels reielf. Likely discharge to rehab facility, patient will continue to work with PT while here. #hypoxic respiratory failure 2/2 PJP PNA -NC currently on 3L NC -Goal SpO2 above 87% -Cont. PO bactrim -BiPAP available PRN - Encourage work with PT ?? #Nectrotizing myopathy #muscular atrophy -Hold immunosuppressive for now (cellcept, MXT) - Tapering Prednisone. Currently on 20mg x 11 days then will end on 03/30 ?? #Urinary retention -U/A positive for glucose and proteins - Bladder scan Qshift -cont. Finasteride -cont. flomax ?? #prediabetes -Cont. glargine and SSI #Other - DVT ppx: Xarelto 20Mg - GI ppx: - Diet: Regular - Access: PIV - Dispo: Rehab - code status: Full Code Dori Peña MD, PGY-1 Medicine Red Team (pgr. [id number]) Associated attestation - Raymond Hernandez DO - 03/21/2020 10:13 PM EDTHospital Medicine Attending Attestation: Patient seen and examined independently. Available diagnostic testing reviewed. Management and plan for today reviewed with Drs. Lin and Casey. I agree with the findings and plans as documented in their note with any additions and/or corrections noted below. Feeling much better today and moving more easily. Plan for acute rehabilitation given this improvement. Large bowel movements today after lactulose. Breathing feeling easier afterwards. I have examined the patient myself and personally reviewed all studies. In addition, I certify thatI am a [facility] credentialed attending provider with admitting privileges and that the patient meets or has met medical necessity to require an inpatient IPI level of care meeting a minimum of two midnightsor is on the [facility] inpatient only procedure list (status C) due to: the patient has met Inpatient IPI criteria and is awaiting rehabilitation or jail facility placement with active referrals in process Raymond Hernandez DO Pager [phone] 03/21/2020 10:06 PMIliana Méndez RN - 03/20/2020 3:38 PM EDT.Based on discussions with the multi-disciplinary healthcare team, the patient would benefit from SWING/SNF level of care at discharge. ?? I have met with the patient to discuss discharge planning needs. I have provided the [facility], Office of Care Management letter from the [facility] [facility] pertaining to rehab referrals. If patient chooses any or our affiliates, I will provide a letter describing our affiliations within the [facility]. I have provided information on the right to choose where referrals are placed. ?? I reviewed the different levels of rehab including SNF, swing, acute and LTAC. ?? I provided a list with quality rating from Medicare.gov of facilities from within the preferred geographic area. ?? I have requested that the patient provide at least three choices for referral. ?? The patient requested referrals to: 1. [facility] ([facility]) [address] [place] [id number] ?? Expected date of discharge: 03/21/20 Note routed to Printing Pressman who will communicate referrals to facilities and provide any required information. ross, Dori Rodriges MD - 03/20/2020 6:09 AM EDT Inpatient Medicine Progress Note ID: Jeison Cervantes is a 64 y.o. male w/ PMH of autoimmune necrotizing myopathy (treated with methotrexate, cellcept,??and chronic steroids), severe spinal stenosis of L3-L4, DVT (on xarelto) admittedfor hypoxemic respiratory failure secondary to PJP pneumonia 24 hr events: - No acute events overnight - Cont. 21 day course of bactrim - Requiring 6 L O2 NC - Likely discharge to rehab facility Meds: Continuous Infusions: Scheduled Meds: ??? polyethylene glycoL (MIRALAX) oral powder 17 g Oral BID ??? sodium chloride 1 g Oral TID ??? insulin lispro 3-12 Units Subcutaneous Q4H KORINA ??? insulin glargine 5 Units Subcutaneous Q24H ??? senna-docusate 2 tablet Oral BID ??? sulfamethoxazole-trimethoprim DS 3 tablet Oral BID And ??? sulfamethoxazole-trimethoprim DS 4 tablet Oral Nightly ??? melatonin 6 mg Oral Nightly ??? predniSONE 20 mg Oral Daily ??? rivaroxaban 20 mg Oral Daily ??? folic acid 1 mg Oral Daily ??? finasteride 5 mg Oral Daily ??? tamsulosin 0.4 mg Oral Daily PRN Meds:.sodium chloride, glucose 40% oral geL OR dextrose 10% OR glucagon (human recombinant), ondansetron, bisacodyL, acetaminophen Vital Signs: Last value Range last 24 hrs Temperature Temp: 36.7 ??C (98.1 ??F) Temp: [36.7 ??C (98.1 ??F)-36.9 ??C (98.4 ??F)] Heart Rate Heart Rate: 93 Heart Rate: [82-93] Blood Pressure BP: 108/69 BP: (97-108)/(57-69) Respiratory Rate Resp: 19 Resp: [18-24] SpO2 SpO2: 92 % SpO2: [88 %-94 %] Patient Vitals for the past 168 hrs: Weight 03/17/20 0600 95.1 kg (209 lb 10.5 oz) 03/16/20 0600 98 kg (216 lb 0.8 oz) 03/15/20 0600 104.3 kg (229 lb 15 oz) I/O: Intake/Output Summary (Last 24 hours) at 03/20/2020 1443 Last data filed at 03/20/2020 1318 Gross per 24 hour Intake 950 ml Output 1100 ml Net -150 ml cumulative I/O's since admission: Physical Exam: Gen: in bed in NAD; alert, oriented, interactive HEENT: anicteric, MMM CV: RRR, normal S1/S2, no S3/S4, no m/r/g, Resp: CTAB with some increased work of breathing Abd: +BS, soft, NT, ND, no HSM, no masses Ext: WWP, no cyanosis, no clubbing, 2+ DP pulses, no edema. Muscle atrophy in b/l quadriceps Neuro: no focal deficits noted, CN II-XII grossly intact, moves all extremities spontaneously Labs Recent Labs 03/20/204 03/19/20 0816 03/18/20 0500 WBC 8.2 9.8* 8.6 HGB 10.7* 10.5* 11.0* HCT 32.2* 32.0* 33.0* PLATELET 267 278 273 Recent Labs 03/20/2044303/19/20 0404 03/18/20 0500 NA 129* 130* 129* K 4.4 4.5 4.7 CL 93* 93* 91* CO2 26 27 29 BUN 14 20 22* CREATININE 0.68* 0.63* 0.71* No results for input(s): AST, ALT, ALKPHOS, BILITOT, BILIDIR in the last 168 hours. Recent Labs 03/20/2044303/19/20 0404 03/18/20 0500 03/15/20 0040 CALCIUM 9.2 9.4 9.5 < > 9.3 MAGNESIUM -- -- -- -- 0.89 PHOS -- -- -- -- 3.1 < > = values in this interval not displayed. No results for input(s): INR, PT, PTT in the last 168 hours. Recent Labs 03/15/20 0040 CK 25 Recent Labs 03/20/20 1142 03/20/20 0645 03/20/20 0305 03/19/20 2303 03/19/20 1950 03/19/20 1629 POCGLU 106 102 91 87 217* 198 No results for input(s): PROBNP in the last 168 hours. Imaging/Studies: Results for orders placed or performed during the hospital encounter of 03/08/20 XR Abdomen 1 view (Generic) (Exam End: 03/09/2020 9:40 PM) Impression OG tube tip in the proximal stomach with sidehole at the distal esophagus. Thank you for letting us participate in the care of this patient. For questions regarding this report, please contact the number below. Electronically signed by: Yan[facility]nell[facility] ([phone]), at 03/09/2020 9:43 PM XR Abdomen 1 view (Generic) (Exam End: 03/10/2020 1:28 AM) Impression OG tube terminates within the stomach, with sidehole past the GE junction. Thank you for letting us participate in the care of this patient. For questions regarding this report, please contact the number below. Electronically signed by: Yan[facility]nellOr[facility] ([phone]), at 03/10/2020 1:40 AM XR Chest One View (Exam End: 03/10/2020 4:03 AM) Impression Grossly unchanged multifocal pulmonary opacities that may represent any combination of pulmonary edema, ARDS, and/or atypical/multifocal pneumonia. I have personally reviewed the image(s) and the resident's interpretation and agree with the findings, Yanet Connell at 03/10/2020 4:25 AM Thank you for letting us participate in the care of this patient. For questions regarding this report, please contact the number below. Electronically signed by: [facility] ([phone]), at 03/10/2020 4:25 AM XR Chest One View (Exam End: 03/11/2020 11:43 PM) Impression No significant interval change in the multifocal pulmonary opacities. Thank you for letting us participate in the care of this patient. For questions regarding this report, please contact the number below. Abdomen 1 view (Generic) (Exam End: 03/15/2020 9:54 AM) Impression Normal bowel gas pattern. Thank you for letting us participate in the care of this patient. For questions regarding this report, please contact the number below. Assessment: 64 y.o. male w/ PMH of autoimmune necrotizing myopathy (treated with methotrexate, cellcept,??and chronic steroids), severe spinal stenosis of L3-L4, DVT (on xarelto) for hypoxemic respiratory failure secondary to PJP pneumonia The patient has stated well in the low 90s overnight on 6L NC. He continues to destat overnight whenoxygen nasal canula is misplaced. Added nasal spray for dry nose from high oxygen requirements. Continuing to hold cellcept and MXT. Tapering prednisone .Dubois was discontinued. Will continue PO Bactrim for PJP PNA (21 day course). Likely discharge to rehab facility, patient will continue to work withPT while here. #hypoxic respiratory failure 2/2 PJP PNA -NC currently at 6L NC -Goal SpO2 above 90% -Cont. PO bactrim -BiPAP available PRN ?? #Nectrotizing myopathy #muscular atrophy -Hold immunosuppressive for now (cellcept, MXT) - Tapering Prednisone. Currently on 20mg x 11 days then will end on 03/30 ?? #Urinary retention -U/A positive for glucose and proteins - Bladder scan Qshift - creatinine to protein ratio showed increased protein -cont. Finasteride -cont. flomax ?? #prediabetes -Cont. glargine and SSI #Other - DVT ppx: Xarelto 20Mg - GI ppx: - Diet: Regular - Access: PIV - Dispo: Rehab - code status: Full Code Dori Peña MD, PGY-1 Medicine Red Team (pgr. [id number]) Associated attestation - Raymond HernandezDO - 03/21/2020 12:15 AM EDTHospital Medicine Attending Attestation: Patient seen and examined independently. Available diagnostic testing reviewed. Management and plan for today reviewed with Drs. Lin and Casey. I agree with the findings and plans as documented in their note with any additions and/or corrections noted below. Doing well overall with increase in strength and energy. If this improvement continues may be able to tolerate acute rehab which would be best for him moving forward. Continues to require 5 to 6 L/min of oxygen supplementation to maintain adequate oxygen saturations. Continue to follow urine outputand character, but seems to be improving overall. Minimal protein spillage noted on spot urine protein to creatinine ratio. I have examined the patient myself and personally reviewed all studies. In addition, I certify thatI am a D-H credentialed attending provider with admitting privileges and that the patient meets or has met medical necessity to require an inpatient IPI level of care meeting a minimum of two midnightsor is on the [facility] inpatient only procedure list (status C) due to: PJP pneumonia Raymond Lombardo DavidDO Pager [phone] 03/21/2020 12:13 AMAshley Kang RCP - 03/20/2020 3:36 AM EDTPt had an episode of desaturation at the beginning of shift. No respiratory distress noted upon my arrival. Pt stated he takes O2 off to see how long it takes for his saturation to drop for personal observation purposes. Discussed importance of leaving O2 on. High flow remains at bedside due to quick desaturation and 6L NC required to keep sats above 88. Kerry george - 03/19/2020 7:05 PM EDTChaplaincy Encounter Note Patient Name: Jeison Cervantes : [id number] MR#: [id number] Admit Date: 03/08/2020 9:32 PM Hospital Day 11 days Narrative: Follow-up. Assessment: Patient expressed deep gratitude for family/life. Intervention and Outcome: Actively listened, providing spiritual support as patient shared his love for family: beloved of 41 years Taniya, 3 children - 2 whom live on family compound, and the mayo of seeing 5 grandchildren daily. Follow-up: Will continue to support throughout hospitalization. Time in Direct Care: 10 min. Kerry English 03/19/2020 Israel Booth, RD - 03/19/2020 3:52 PM EDT Nutrition Progress Note Jeison Cervantes is a 64 y.o. male w/ PMH of autoimmune necrotizing myopathy (treated with methotrexate, cellcept,??and chronic steroids), severe spinal stenosis of L3-L4, DVT (on xarelto)??admitted for hypoxemic respiratory failure secondary to PJP pneumonia Reason for intervention: Follow up Nutrition Recommendations: Regular diet as ordered. Encourage good po intake. Continue snacks. Will add Boost Plus to lunch and dinner. Monitor weight. Active Orders Diet Regular diet Frequency: Effective Now Number of Occurrences: Until Specified Lab Results Component Value Date NA 130 (L) 03/19/2020 K 4.5 03/19/2020 CL 93 (L) 03/19/2020 CO2 27 03/19/2020 BUN 20 03/19/2020 CREATININE 0.63 (L) 03/19/2020 GFRAA 121 03/19/2020 ESTGFR 104 03/19/2020 MAGNESIUM 0.89 03/15/2020 CALCIUM 9.4 03/19/2020 PHOS 3.1 03/15/2020 AST 35 03/08/2020 ALT 43 03/08/2020 ALKPHOS 54 03/08/2020 BILITOT 0.4 03/08/2020 BILIDIR 0.1 11/21/2019 CRP 1.8 01/23/2020 HA1C 8.8 (H) 03/08/2020 IRON 54 03/08/2020 Lab Results Component Value Date POCGLU 116 03/19/2020 POCGLU 99 03/19/2020 POCGLU 96 03/19/2020 POCGLU 88 03/19/2020 POCGLU 179 03/18/2020 POCGLU 295 (H) 03/18/2020 Skin Status: Shift Pressure Injury Prevention Occiput: No Injury Thoracic Spine: No Injury Sacral: No Injury Ischial - left: No Injury Ischial - right: No Injury Heel - left: No Injury Heel - right: No Injury Elbow - left: No Injury Elbow - right: No Injury Device Sites: O2 sat monitor, oxygen tubing, IV sites, ECG Leads Other Sites: ID bands Relevant medications: folic acid, insulin, prednisone, sodium chloride tabs, bactrim DS, bowel meds,others noted Last Bowel Movement: 03/16/20 Admit Weight: 103.6 kg Estimated body mass index is 30.08 kg/m?? as calculated from the following: Height as of this encounter: 177.8 cm (5' 10). Weight as of this encounter: 95.1 kg (209 lb 10.5 oz). [place] Body Weight:??75.5??kg Noted weight decreased 8.5 kg since admission, ? Related to fluid, bed scale, ? different bed, poor nutrition since admission, or further muscle loss with progression of necrotizing myelopathy. ?? Usual Body Weight:??per pt 3 yrs ago consistent at ~235 lbs; gained wt up to 257 lbs due to steroids, then when meds were changed ~November, lost 37 lbs over 3 months Patient Vitals for the past 168 hrs: Weight 03/17/20 0600 95.1 kg (209 lb 10.5 oz) 03/16/20 0600 98 kg (216 lb 0.8 oz) 03/15/20 0600 104.3 kg (229 lb 15 oz) 03/13/20 0000 105.5 kg (232 lb 9.4 oz) Wt Readings from Last 10 Encounters: 03/17/20 95.1 kg (209 lb 10.5 oz) 02/09/20 102.1 kg (225 lb) 02/07/20 102.5 kg (226 lb) 01/23/20 104.3 kg (230 lb) 11/25/19 114.8 kg (253 lb) 11/21/19 114.3 kg (252 lb) 09/15/19 111.1 kg (245 lb) 08/15/19 109.8 kg (242 lb) 05/11/19 113.4 kg (250 lb) 03/29/19 114.3 kg (252 lb) Assessment: Estimated needs (previously assessed): Calories: 2100 (20 kcal/kg) Protein: 125 grams (1.2g/kg) Nutrition Focused Physical Exam (NFPE): Not performed - attempted but unable to discern due to autoimmune necrotizing myopathy. Nutrition intake and intake history/Interview: patient and his seen for nutrition follow up. His appetite and intake has decreased since I saw him on 03/14/20. Appetite is poor to fair: breakfast - 1/4 pancake, 1/2 sidhu, orange juice; lunch - 1/2 tuna sandwich, a spoon of cottage cheese, 1/2 package of chips, and 2 bites of pie. He likes the midmorning snack of hard boiled egg and trail mix in the evening. He has only tried one boost plus shake. He tends to fill up quickly. I encouraged him to choose calorie dense foods and suggested drinking Boost Plus with meals instead of beverages like tea, and it is twice the calories and protein of whole milk. He was agreeable to trying to consume at lunch and dinner. Nutrition since hospitalization he had 6 days with minimal nutrition. 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 03/08 - 03/09 - NPO 03/10 - tube feedings started 03/10- - received only 182 ml of tube feedings 03/13 - diet advanced to clear liquids 03/14 - diet advanced to regular diet - eating very well 03/19/20 - decreased oral intake, he states 25% of normal. Just does not have the appetite. 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 Pt has experienced significant wt loss over 3 months prior to admission but unable to say that it was related to nutrition due to autoimmune necrotizing myopathy. (Kalpesh et al, JPEN J Parenteral Enteral Nutr. 2011; 36(3): 273-83) [address] RD Pager #:[phone] Iliana Méndez RN - 03/19/2020 3:06 PM EDTBased on discussions with the multi-disciplinary healthcare team, the patient would benefit from SWING/SNF level of care at discharge. PT is , per physical therapy, recommended for ACUTE rehab, upon talking with MD team, they are suggesting that pt is unable to tolerate an acute level of rehab. Pt and his , Debora, do not want any senior care for SNFs, so want only Medical facilites for rehab. Provided them with a [place] of [place] ?? I have met with the patient to discuss discharge planning needs. I have provided the [facility], Office of Care Management letter from the [employer] pertaining to rehab referrals. If patient chooses any or our affiliates, I will provide a letter describing our affiliations within the [facility]. I have provided information on the right to choose where referrals are placed. ?? I reviewed the different levels of rehab including SNF, swing, acute and LTAC. ?? I provided a list with quality rating from Medicare.gov of facilities from within the preferred geographic area. ?? I have requested that the patient provide at least three choices for referral. ?? The patient requested referrals to: 1. [facility] (Swing) ?? PHONE: [phone] FAX: [phone] 2. [facility] [place] (Swing) ?? PHONE: [phone] FAX: [phone] 3. [facility] (Swing) [address], [place] [phone] [facility] (Swing) [address] [place] [address] (Accepts pts 3-5 days max) [facility] (Swing) [address] [place] [address] PHONE: [phone] FAX: [phone] ?? Expected date of discharge: 03/20/20 Note routed to [employer] who will communicate referrals to facilities and provide any required information. Dori Osei MD - 03/19/2020 6:47 AM EDT Inpatient Medicine Progress Note ID: Jeison Cervantes is a 64 y.o. male w/ PMH of autoimmune necrotizing myopathy (treated with methotrexate, cellcept,??and chronic steroids), severe spinal stenosis of L3-L4, DVT (on xarelto) admittedfor hypoxemic respiratory failure secondary to PJP pneumonia 24 hr events: - No acute events overnight - Cont. 21 day course of bactrim - Requiring between 5 and 6 L O2 NC Meds: Continuous Infusions: Scheduled Meds: ??? polyethylene glycoL (MIRALAX) oral powder 17 g Oral BID ??? sodium chloride 1 g Oral TID ??? insulin lispro 3-12 Units Subcutaneous Q4H KORINA ??? insulin glargine 5 Units Subcutaneous Q24H ??? senna-docusate 2 tablet Oral BID ??? sulfamethoxazole-trimethoprim DS 3 tablet Oral BID And ??? sulfamethoxazole-trimethoprim DS 4 tablet Oral Nightly ??? melatonin 6 mg Oral Nightly ??? predniSONE 40 mg Oral Daily Followed by ??? [START ON 03/20/2020] predniSONE 20 mg Oral Daily ??? rivaroxaban 20 mg Oral Daily ??? folic acid 1 mg Oral Daily ??? finasteride 5 mg Oral Daily ??? tamsulosin 0.4 mg Oral Daily PRN Meds:.glucose 40% oral geL OR dextrose 10% OR glucagon (human recombinant), ondansetron,bisacodyL, acetaminophen Vital Signs: Last value Range last 24 hrs Temperature Temp: 37 ??C (98.6 ??F) Temp: [35.5 ??C (95.9 ??F)-37 ??C (98.6 ??F)] Heart Rate Heart Rate: 86 Heart Rate: [84-97] Blood Pressure BP: 109/63 BP: (94-120)/(63-76) Respiratory Rate Resp: 16 Resp: [13-26] SpO2 SpO2: 91 % SpO2: [90 %-96 %] Patient Vitals for the past 168 hrs: Weight 03/17/20 0600 95.1 kg (209 lb 10.5 oz) 03/16/20 0600 98 kg (216 lb 0.8 oz) 03/15/20 0600 104.3 kg (229 lb 15 oz) 03/13/20 0000 105.5 kg (232 lb 9.4 oz) I/O: Intake/Output Summary (Last 24 hours) at 03/19/2020 0648 Last data filed at 03/19/2020 0617 Gross per 24 hour Intake 100 ml Output 1095 ml Net -995 ml cumulative I/O's since admission: Physical Exam: Gen: in bed in NAD; alert, oriented, interactive HEENT: anicteric, MMM CV: RRR, normal S1/S2, no S3/S4, no m/r/g, Resp: CTAB Abd: +BS, soft, NT, ND, no HSM, no masses Ext: WWP, no cyanosis, no clubbing, 2+ DP pulses, no edema. Muscle atrophy in b/l quadriceps Neuro: no focal deficits noted, CN II-XII grossly intact, moves all extremities spontaneously Labs Recent Labs 03/18/20 0500 03/17/20 0122 03/16/20 0212 WBC 8.6 7.7 6.7 HGB 11.0* 10.1* 10.2* HCT 33.0* 30.5* 29.8* PLATELET 273 259 244 Recent Labs 03/19/20 0404 03/18/20 0500 03/17/20 0122 NA 130* 129* 130* K 4.5 4.7 4.9 CL 93* 91* 92* CO2 27 29 25 BUN 20 22* 19 CREATININE 0.63* 0.71* 0.64* No results for input(s): AST, ALT, ALKPHOS, BILITOT, BILIDIR in the last 168 hours. Recent Labs 03/19/20 0404 03/18/20 0500 03/17/20 0122 03/15/20 0040 CALCIUM 9.4 9.5 9.4 < > 9.3 MAGNESIUM -- -- -- -- 0.89 PHOS -- -- -- -- 3.1 < > = values in this interval not displayed. No results for input(s): INR, PT, PTT in the last 168 hours. Recent Labs 03/15/20 0040 CK 25 Recent Labs 03/19/20 0642 03/19/20 0423 03/19/20 0008 03/18/20 1930 03/18/20 1554 03/18/20 1217 POCGLU 99 96 88 179 295* 216* No results for input(s): PROBNP in the last 168 hours. Imaging/Studies: Results for orders placed or performed during the hospital encounter of 03/08/20 XR Abdomen 1 view (Generic) (Exam End: 03/09/2020 9:40 PM) Impression OG tube tip in the proximal stomach with sidehole at the distal esophagus. Thank you for letting us participate in the care of this patient. For questions regarding this report, please contact the number below. Abdomen 1 view (Generic) (Exam End: 03/10/2020 1:28 AM) Impression OG tube terminates within the stomach, with sidehole past the GE junction. Thank you for letting us participate in the care of this patient. For questions regarding this report, please contact the number below. Chest One View (Exam End: 03/10/2020 4:03 AM) Impression Grossly unchanged multifocal pulmonary opacities that may represent any combination of pulmonary edema, ARDS, and/or atypical/multifocal pneumonia. I have personally reviewed the image(s) and the resident's interpretation and agree with the findings, Yanet Connell at 03/10/2020 4:25 AM Thank you for letting us participate in the care of this patient. For questions regarding this report, please contact the number below. Chest One View (Exam End: 03/11/2020 11:43 PM) Impression No significant interval change in the multifocal pulmonary opacities. Thank you for letting us participate in the care of this patient. For questions regarding this report, please contact the number below. Electronically signed by: [facility] Connell [facility] ([phone]), at 03/12/2020 3:05 AM XR Abdomen 1 view (Generic) (Exam End: 03/15/2020 9:54 AM) Impression Normal bowel gas pattern. Thank you for letting us participate in the care of this patient. For questions regarding this report, please contact the number below. Assessment: 64 y.o. male w/ PMH of autoimmune necrotizing myopathy (treated with methotrexate, cellcept,??and chronic steroids), severe spinal stenosis of L3-L4, DVT (on xarelto) for hypoxemic respiratory failure secondary to PJP pneumonia The patient has stated well in the low 90s overnight on 5-6L NC. Continuing to hold cellcept and MXT. Tapering prednisone. UA is positive for glucose and blood. New dubois was placed yesterday. Will continue PO Bactrim for PJP PNA. Likely discharge to rehab facility. #hypoxic respiratory failure 2/2 PJP PNA -NC currently at 5-6L NC -Goal SpO2 above 90% -Cont. PO bactrim -BiPAP available PRN ?? #Nectrotizing myopathy #muscular atrophy -Hold immunosuppressive for now (cellcept, MXT) - Tapering Prednisone. Currently on 20mg x 11 days then will end on 03/30 ?? #Urinary retention -U/A positive for glucose and proteins - Bladder scan Qshift - f/u creatinine to protein ratio -cont. Finasteride -cont. flomax ?? #prediabetes -Cont. glargine and SSI #Other - DVT ppx: - GI ppx: - Diet: - Access: - Consults: - Dispo: - code status: Full Code Dori Peña MD, PGY-1 Medicine Red Team (pgr. [id number]) Associated attestation - Raymond Hernandez DO - 03/19/2020 5:27 PM EDTHospital Medicine Attending Attestation: Patient seen and examined independently. Available diagnostic testing reviewed. Management and plan for today reviewed with Drs. Lin and Casey. I agree with the findings and plans as documented in their note with any additions and/or corrections noted below. Doing well overall. Still very weak. He does not think he can do 3hrs of therapy a day currently Ambrose agree. Will need rehabilitation and if able to increase his endurance, could transition to acute rehabilitation. Urine clearing up this morning with less blood and sediment. Bladder scans to look forobstruction, but looking to avoid dubois catheter as occluded during last placement. I have examined the patient myself and personally reviewed all studies. In addition, I certify thatI am a D-H credentialed attending provider with admitting privileges and that the patient meets or has met medical necessity to require an inpatient IPI level of care meeting a minimum of two midnightsor is on the CMS inpatient only procedure list (status C) due to: acute respiratory compromise and/or hypoxia requiring assessment every 4 hours and the ability to respond immediately to the patient's need and PJP pneumonia Raymond Hernandez DO Pager [phone] 03/19/2020 5:24 PMPavan Acuña MD - 03/18/2020 7:17 AM EDT MICU STAFF PROGRESS NOTE Critical Care Medicine Author: PAVAN ACUÑA Patient seen and examined on critical care rounds. Interval Events: Remained mostly on 6L NC for the past 24 hours. Occasionally desaturating with exertion requiring high flow. Net negative 1 L in the past 24 hours. Finger sticks well controlled. Active problems: ?? Acute hypoxemic respiratory failure ?? Pneumocystis jiroveci pneumonia ?? Autoimmune necrotizing myopathy ?? DVT on Xarelto ?? Hyperglycemia secondary to steroids ?? Ileus ?? Hyponatremia, possible SIADH ?? Urinary retention requiring dubois Exam: Last value Range last 24 hrs Temperature Temp: 36.8 ??C (98.2 ??F) Temp: [36.8 ??C (98.2 ??F)-37.4 ??C (99.3 ??F)] Heart Rate Heart Rate: 87 Heart Rate: [69-107] Blood Pressure BP: 102/67 BP: (96-110)/(54-70) Respiratory Rate Resp: 18 Resp: [13-28] SpO2 SpO2: (!) 87 % SpO2: [87 %-99 %] Art BP BP (Arterial Line): -- Ventilator: NC at 6L Current Drips: None Awake and alert, comfortable appearing Lungs clear anteriorly,some crackles at the bases laterally Heart regular, S1 S2 + 0 Abdomen soft 1+ extremity edema, L>R Labs/studies: WBC 8.6 Hg 11.0 plt 273 Na 129 K 4.7 Cl 91 CO2 29 BUN 22 Creat 0.71 ASSESSMENT, MANAGEMENT, and DECISION MAKIN64 y/o man with necrotizing myositis that has been controlled with immunosuppression now complicatedby acute hypoxic respiratory failure and ARDS from PJP pneumonia. He continues to gradually improveand is now tolerating 6L NC. He may still require high flow for exertion, but overall he appears stable to transition out of the ICU. Plan: ?? Wean FiO2 as tolerated, high flow with exertion as needed ?? Continue prednisone taper for PJP ?? Continue oral bactrim ?? Hold other immunosuppression for now ?? Continue meds for BPH ?? Continue low dose glargine and SSI ?? Start salt tabs for hyponatremia from SIADH ?? PT/OT ?? Continue xarelto ?? Transfer to hospital medicine IS PATIENT CRITICALLY ILL ? Is there a high potential of sudden, clinically significant, or life threatening deterioration? No Is there a need for direct personal assessment and management to treat/prevent multiple vital organfailure/deterioration? No If this patient is not critically ill, I certify the patient requires continued in-patient hospitalization for hypoxia from PJP pneumonia. PAVAN ACUÑA ine Valles MD - 03/18/2020 7:05 AM EDT Mine Donohue MD CRITICAL CARE PROGRESS NOTE Jeison Cervantes [id number] Admitted:03/08/2020 9:32 PM ICU day: 7 Critical Care Diagnosis: Jeison Cervantes is a 64 y.o. male with PMH autoimmune necrotizing myopathy(treated with methotrexate, cellcept,??and chronic steroids), severe spinal stenosis of L3-L4, DVT (on xarelto)??who is admitted to [facility] for hypoxemic respiratory failure secondary to PJP pneumonia Hospital course has been significant for: -Hypoxemic respiratory failure secondary to PJP pneumonia: Pt initially presented to [facility] for shortness of breath, fever, and myalgias. He was ruled-out for COVID. CT chest concerning for GGOs predominantly in mid-upper lung zones and pt was notably not given PJP prophylaxis while immunosuppressed. The patient was intubated and bronchoscopy was performed on 03/09, and BAL revealed PJP pneumonia. The patient was subsequently extubated 03/11, but continued to require high-flow NC and CPAP with high [id number]. He was started on prednisone taper and Bactrim IV 15mg/kg/day on 03/08, transitioned Felicitas 03/14. 24-hour events: -Tolerated O2 nasal cannula yesterday afternoon and overnight -Received 20 mg IV Lasix yesterday afternoon Subjective: - Feels well - Passing gas, last bowel movement 03/16 Data: Temp: 36.8 ??C (98.2 ??F), Temp: [36.8 ??C (98.2 ??F)-37.4 ??C (99.3 ??F)] Heart Rate: 87, Heart Rate: [69-107] BP: 102/67, BP: (96-110)/(54-70) BP (Arterial Line): -- Resp: 17, Resp: [13-28] SpO2: 92 %, SpO2: [87 %-99 %] I/O: 03/17 0701 - 03/18 0700 In: 1420 [P.O.:1420] Out: 2495 [Urine:2495] VENT SETTINGS: NA Recent Labs 03/12/20 0404 PHART 7.54* NVD8PHS 27* PO2ART 64* [id number] 23.0 Intake/Output Summary (Last 24 hours) at 03/18/2020 0705 Last data filed at 03/18/2020 0600 Gross per 24 hour Intake 1420 ml Output 2495 ml Net -1075 ml Output source:Urine Last wbc, hgb, hct plt Recent Labs 03/18/20 0500 WBC 8.6 HGB 11.0* HCT 33.0* Last 3 Lytes Recent Labs 03/18/20 0500 03/17/20 0122 03/16/20 0212 NA 129* 130* 130* K 4.7 4.9 4.7 CL 91* 92* 93* CO2 29 25 26 BUN 22* 19 19 CREATININE 0.71* 0.64* 0.56* Last 3 LFTs Recent Labs 03/08/20 2200 02/09/20 0911 01/23/20 0853 11/21/19 0829 AST 35 18 37 40* ALT 43 75* 78* 33 ALKPHOS 54 37* 37* 37* BILITOT 0.4 0.5 0.7 0.5 BILIDIR -- -- -- 0.1 Last Ca, Mg, Phos Recent Labs 03/18/20 0500 03/15/20 0040 CALCIUM 9.5 < > 9.3 PHOS -- -- 3.1 < > = values in this interval not displayed. Last 3 Coags No results for input(s): PT, INR, PTT in the last 168 hours. MICRO Microbiology Results (Last 30 days) Procedure Component Value Units Date/Time Blood culture [[id number]] Collected: 03/11/202349 Lab Status: Final result Specimen: Blood Updated: 03/17/20700 Blood Culture No growth at 5 days. Blood culture [[id number]] Collected: 03/11/202349 Lab Status: Final result Specimen: Blood Updated: 03/17/20700 Blood Culture No growth at 5 days. Pneumocystis Carinii Stain Bronchial Alveolar Lavage [[id number]] (Abnormal) Collected: 03/09/201248 Lab Status: Final result Specimen: Bronchial Alveolar Lavage Updated: 03/09/202105 Pneumocystis Carinii Stain -- Fluorescent stain positive for: Pneumocystis jiroveci (carinii) Results called to and read back by DR. MEZA. Cystic Fibrosis Respiratory Culture Cystic Fibrosis Bronchoalveolar Lavage [[id number]] Collected: 03/09/201248 Lab Status: Final result Specimen: Cystic Fibrosis Bronchoalveolar Lavage Updated: 03/14/20 1226 Cystic Fibrosis Respiratory Culture No growth AFB culture Bronchial Alveolar Lavage [[id number]] Collected: 03/09/201248 Lab Status: Preliminary result Specimen: Bronchial Alveolar Lavage Updated: 03/13/20 1402 Acid Fast Bacilli Culture -- No Acid Fast Bacilli isolated to date If active tuberculosis is suspected, the patient should be on [employer]. Call Infection Prevention for assistance if needed. Acid Fast Stain No Acid Fast Bacilli seen Fungus Culture & Calc Stain Bronchial Alveolar Lavage [[id number]] Collected: 03/09/201248 Lab Status: Preliminary result Specimen: Bronchial Alveolar Lavage Updated: 03/12/20 1004 Fungus culture [[id number]] Collected: 03/09/201248 Lab Status: Preliminary result Specimen: Bronchial Alveolar Lavage Updated: 03/12/20 1004 Fungus Culture No Fungus isolated to date Calcofluor White Stain [[id number]] Collected: 06/26/20 1249 Lab Status: Final result Specimen: Bronchial Alveolar Lavage Updated: 03/09/204 Calcofluor Stain Calcofluor White Preparation: Negative COVID-19 PCR [[id number]] Collected: 03/09/20 1249 Lab Status: Final result Specimen: Other Updated: 03/10/20 1107 SARS-CoV-2 RNA Not Detected Comment: This result should be interpreted in combination with the clinical observations, patient history and epidemiological information. For testing of asymptomatic individuals, assay performance characteristics and clinical utility have not been evaluated. Testing for SARS-CoV-2 (Severe acute respiratory syndrome coronavirus 2, formerly known as 2019 novel coronavirus or 2019-nCoV) to aid in the diagnosis of COVID-19 is performed using the [employer] SARS-CoV-2 as authorized by the FDA Emergency Use Authorization (EUA). This EUA assay is intended for In-vitro Diagnostic (IVD) use with respiratory specimens such as nasopharyngeal swabs collected from individuals during the acute phase of infection. This assay is performed based on the instructions for use provided by the [employer] and additional guidance provided by CDC and FDA. Testing is performed in the [facility] within the Department of Pathology and Laboratory Medicine at [facility], certified under the Clinical Laboratory Improvement Amendments of 1988 (CLIA), 42 U.S.C. section 263a, to perform high complexity tests. Assay performance has been verified according to clinical laboratory regulatory requirements. Test results are provided above. A result of Not Detected indicates that the viral RNA target is not present but does not preclude SARS-CoV-2 infection. False negative results may occur if a specimen is improperly collected, transported or handled; if amplification inhibitors are present; or if inadequate numbers of viral particles are present in the specimen. A result of Detected suggests a current or recent infection and the patient is presumed to be infected. As required or requested by public health authorities, positive specimens may be sent for additional testing. Positive and negative predictive values for this test are highly dependent on disease prevalence. A result of Invalid indicates that neither the viral RNA targets nor the internal control target was detected. An invalid result suggests the presence of inhibitors. Recollection is recommended in the case of an invalid result. CDC COVID-19 criteria for testing on human specimens and clinical management guidance information are available at the CDC Coronavirus Disease 2019 (COVID-19) webpage under Information for Healthcare Professionals (https://www.cdc.gov/coronavirus/2019-ncov/hcp/index.html) Additional information about this and other EUA tests can be found in provider and patient fact sheets at the following FDA website: https://www.fda.gov/medical-devices/hiplttxcw-mjlblxnfkj-sjjblae-devices/emergen na-jbg-tkgdsgdjfjdrat#uumhe85xpk SARS-Cov-2 RNA Source Other Respiratory Panel PCR [[id number]] Collected: 03/08/202253 Lab Status: Final result Specimen: Nasopharyngeal Swab Updated: 03/09/20 1511 Resp Panel Source [employer] WORK L[employer]ER Swab Resp Panel PCR Negative Comment: Respiratory Panels are performed on the [employer], using multiplexed PCR nucleic acid detection. Negative results do not preclude respiratory infection and should not be used as the sole basis for diagnosis, treatment or other management decisions. Adenovirus Not Detected Coronavirus HKU1 Not Detected Coronavirus NL63 Not Detected Coronavirus 229E Not Detected Coronavirus OC43 Not Detected Human Metapneumovirus Not Detected Human Rhino/Enterovirus Not Detected Influenza A Not Detected Influenza B Not Detected Parainfluenza 1 Not Detected Parainfluenza 2 Not Detected Parainfluenza 3 Not Detected Parainfluenza 4 Not Detected Respiratory Syncytial Virus Not Detected Chlamydophila pneumoniae Not Detected Mycoplasma pneumoniae Not Detected Legionella Urinary Antigen [[id number]] Collected: 03/08/202253 Lab Status: Final result Specimen: Urine Updated: 03/09/20 1156 Legionella Urinary Antigen Negative Comment: A negative Legionella Urinary Antigen by EIA suggests no recent or current infection with L. pneumophila Serogroup 1. Antigen may not be present in urine in early infection, and the level of antigen present in the urine may be below the detection limit of the test. Sensitivity: 95% Specificity 95%. COVID-19 PCR [[id number]] Collected: 03/08/20 2223 Lab Status: Final result Specimen: Nasopharyngeal Swab Updated: 03/09/20 0132 Rapid SARS-CoV-2 RNA Not Detected Comment: This result should be interpreted in combination with the clinical observations, patient history and epidemiological information. For testing of asymptomatic individuals, assay performance characteristics and clinical utility have not been evaluated. Testing for SARS-CoV-2 (Severe acute respiratory syndrome coronavirus 2, formerly known as 2019 novel coronavirus or 2019-nCoV) to aid in the diagnosis of COVID-19 is performed using the Simplex[employer] COVID-19 Direct Assay by [employer] as authorized by the FDA issued Emergency Use Authorization (EUA). This assay is intended for In-vitro Diagnostic (IVD) use with nasopharyngeal swabs collected from individuals meeting the CDC criteria for testing. The assay is performed based on the instructions for use and additional guidance provided by the FDA. Testing is performed in the Microbiology Laboratory within the Department of Pathology and Laboratory Medicine at [facility], certified under the Clinical Laboratory Improvement Amendments of 1988 (CLIA), 42 U.S.C. section 263a, to perform high complexity tests. Assay performance has been verified according to clinical laboratory regulatory requirements. Test results are provided above. A result of Not Detected indicates that the viral RNA target is not present but does not preclude SARS-CoV-2 infection. False negative results may occur if a specimen is improperly collected, transported or handled; if amplification inhibitors are present; or if inadequate numbers of viral particles are present in the specimen. A result of Detected suggests a current or recent infection and the patient is presumed to be infected. Positive and negative predictive values for this test are highly dependent on disease prevalence. A result of Invalid indicates the inability to conclusively determine the presence or absence of SARS-CoV-2 RNA in the sample which can be due to a variety of factors. Recollection is recommended in the case of an invalid result. CDC COVID-19 criteria for testing on human specimens and clinical management guidance information are available at the CDC Coronavirus Disease 2019 (COVID-19) webpage under Information for Healthcare Professionals (https://www.cdc.gov/coronavirus/2019-ncov/hcp/index.html). SARS-CoV-2 Source [employer] WORK L[employer]ER Swab Blood culture [[id number]] Collected: 03/08/202199 Lab Status: Final result Specimen: Blood Updated: 03/14/20700 Blood Culture No growth at 5 days. Blood culture [[id number]] Collected: 03/08/202199 Lab Status: Final result Specimen: Blood Updated: 03/14/20700 Blood Culture No growth at 5 days. Antimicrobials: Bactrim PO 15mg/kg/day EC/26, Sinus rhythm Imaging notable for: Results for orders placed or performed during the hospital encounter of 03/08/20 XR Abdomen 1 view (Generic) (Exam End: 03/09/2020 9:40 PM) Impression OG tube tip in the proximal stomach with sidehole at the distal esophagus. Thank you for letting us participate in the care of this patient. For questions regarding this report, please contact the number below. Abdomen 1 view (Generic) (Exam End: 03/10/2020 1:28 AM) Impression OG tube terminates within the stomach, with sidehole past the GE junction. Thank you for letting us participate in the care of this patient. For questions regarding this report, please contact the number below. Chest One View (Exam End: 03/10/2020 4:03 AM) Impression Grossly unchanged multifocal pulmonary opacities that may represent any combination of pulmonary edema, ARDS, and/or atypical/multifocal pneumonia. I have personally reviewed the image(s) and the resident's interpretation and agree with the findings, Yanet Connell at 03/10/2020 4:25 AM Thank you for letting us participate in the care of this patient. For questions regarding this report, please contact the number below. Chest One View (Exam End: 03/11/2020 11:43 PM) Impression No significant interval change in the multifocal pulmonary opacities. Thank you for letting us participate in the care of this patient. For questions regarding this report, please contact the number below. Abdomen 1 view (Generic) (Exam End: 03/15/2020 9:54 AM) Impression Normal bowel gas pattern. Thank you for letting us participate in the care of this patient. For questions regarding this report, please contact the number below. : Well developed, well-nourished, critically-ill man who appears documented age. Pleasant and conversational. Neuro: Alert, oriented x4. Follows commands and moves all extremities with equal strength. HEENT: Normocephalic, atraumatic. Mucous membranes moist. No scleral icterus. Neck: Supple, without evidence of JVD. CV: Regular rate and rhythm with no murmurs, rubs, or gallops. 1+ pitting edema to lower extremities, L>R. Peripheral pulses 2+ bilaterally. Cap refill <2 seconds Pulm: Breathing unlabored at rest. Dyspnea and moderate retractions with minimal exertion. Chest rise symmetrical. Bibasilar crackles. Abd: Round, softly distended. Non-tender. Normoactive bowel sounds. Skin: Warm, dry, and intact. No rash, lesion, or erythema. Assessment:Jeison Cervantes is a 64 y.o. male with PMH autoimmune necrotizing myositis and DVT who is admitted to [facility] with hypoxemic respiratory failure requiring secondary to PJP infection. Course complicated constipation without ileus and mild SIADH. Plan: NEURO/MSK: Hx autoimmune necrotizing myopathy, spinal stenosis L3-L4 -Rheumatology following, appreciate recommendations -Continue to hold home immunosuppressants with plan to restart cellcept and methotrexate after completion of PJP treatment (03/30) as discussed with Rheum fellow. No plan to restart home steroid dosing as pt had been on planned outpatient taper with hopes to receive steroid injection for spinal stenosis -Tylenol 650mg every 6 hours PRN pain -PT/OT consulted PULM: Hypoxemic respiratory failure requiring HFNC in the setting of PJP pneumonia -Wean FiO2 as able to maintain SpO2 >89% -s/p IV Lasix 20 mg on 03/17 -Continue Bactrim PO (15mg/kg) -Continue prednisone taper (40 mg daily until 03/19, then 20 mg daily x11 days, to end 03/30) CARD/VASC:MARISELA -Continuous telemetry monitoring GI/NUTRITION: Constipation, abdominal distension without evidence of ileus. Critical Illness Nutrition -Regular diet -Bowel regimen: senna-colace 2 tabs BID, miralax BID, and bisacodyl suppository PRN -Zofran 4mg PRN for nausea -Encourage mobilization as O2 requirements allow RENAL/FEN/: Hyponatremia likely secondary to SIADH (likely 2/2 PJP pneumonia.) Urinary retention, Hx BPH -Dubois replaced for retention -Urine studies suggest concentrated urine/SIADH, however pt is auto-diuresing suggesting he is mobilizing fluids -Sodium chloride tabs TID -Monitor PO intake and need for fluid restriction. -Continue home finasteride 5mg and tamulosin 0.4mg daily -Daily BMP, mag, phos -K+ repletion protocol ID:PJP pneumonia -Continue Bactrim (15mg/kg/day) x 21 days, will complete 03/29 ENDO: Glycemic control while on steroids -POC glucose QID AC/HS -Resistant insulin sliding scale to improve meal-time hyperglycemia -Continue glargine 5U at HS -Steroids as above HEME: Hx DVT -Continue home Xarelto 20mg daily PROPHY: -Xarelto and SCDs to bilateral lower extremities for DVT prophylaxis -GI prophylaxis no longer indicated -PT/OT:Ordered LINES/TUBES: -PIV only PSYCHO-SOCIAL: -Decision making:Patient -Code status:Full Code Disposition: Possible transfer to ISCU Patient seen and examined with Dr. Arianne Donohue MD Critical Care Blue Team [id number] Charisse Crandall RN - 03/17/2020 5:23 PM EDTOUTCOME EVALUATION NOTE: OUTCOME SUMMARY: No acute events. 1x Lasix IVP 20mg to good effect on LE edema and UOP. at bedside during shift. Moved pt from 3E NCCU to 3N MICU, no issues. Neuro- AxOx4. Pleasant/cooperative. Afebrile. Cardiac- NSR on monitor. BP WNL. Respiratory- Clear lung sounds bilat. Transitioned from HFNC 60% to NC 6L. Back on HFNC 80% briefly for transfer to bedside commode. No desats, mild SOB reported w/ standing but no dizziness/lightheadedness. GI/- Adequate UOP. No BM. Bowel meds given. Tolerating regular diet well, but minimal appetite. Hyperglycemic, requiring recheck. See MAR/results for details. IV Drips: none PLAN MOVING FORWARD: Monitor BG (w/ new 0000 rechecks- see Nursing Communication orders for details), encourage activity,wean O2 as tolerated, continue bowel regimen. INDIVIDUALIZED FALL PREVENTION INTERVENTIONS: Patient-specific fall risk factors per assessment: [current deficits]: Lines, drains, cords and generalized weakness. Assistance [level of assistance required for transfers and ambulation]: 2 assist Supervision [direct monitoring required during toileting and ADLs]: Alarms active, audible and set appropriately. Purposeful rounding, frequent visual assessments. Surveillance [continuous indirect monitoring]: [place] [facility] Monitor [facility] GOAL OUTCOME EVALUATION: Hrelinda Lackey RCP - 03/17/2020 4:50 PM EDT 03/17/20 1459 Oxygen Therapy O2 Device NC O2 Flow Rate (L/min) 6 L/min SpO2 93 % Resp 18 pt on 6L kane well. Pt was on HFNC 30L & 60%. Pt sat does decrease when he moves. RN used HF whenpt got out of bed Pt order for sat > 89% Pt has a prn Bipap for at nite 06/23/60 Last worn 03/15 No breathing treatments ordered at this time Will continue to monitor pt 03/11 cxr FINDINGS: The endotracheal and enteric tube have been removed. ?? Low lung volumes with unchanged mild elevation of the right hemidiaphragm relative to the left. There is been no interval change in the diffuse interstitial opacities with superimposed patchy airspace opacities in the perihilar region, right upper lobe and most confluent in the retrocardiac region. No large effusion. No pneumothorax. Stable cardiac silhouette. ?? IMPRESSION No significant interval change in the multifocal pulmonary opacities. 03/09 BAL Information: Bronchial Alveolar Lavage ?? 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 MEZA. Jie Barboza APRN - 03/17/2020 12:30 PM EDT Jie Barboza APRN CRITICAL CARE PROGRESS NOTE Jeison Cervantes [id number] Admitted:03/08/2020 9:32 PM ICU day: 6 Critical Care Diagnosis: Jeison Cervantes is a 64 y.o. male with PMH autoimmune necrotizing myopathy(treated with methotrexate, cellcept,??and chronic steroids), severe spinal stenosis of L3-L4, DVT (on xarelto)??who is admitted to [facility] for hypoxemic respiratory failure secondary to PJP pneumonia Hospital course has been significant for: -Hypoxemic respiratory failure secondary to PJP pneumonia: Pt initially presented to [facility] for shortness of breath, fever, and myalgias. He was ruled-out for COVID. CT chest concerning for GGOs predominantly in mid-upper lung zones and pt was notably not given PJP prophylaxis while immunosuppressed. The patient was intubated and bronchoscopy was performed on 03/09, and BAL revealed PJP pneumonia. The patient was subsequently extubated 03/11, but continued to require high-flow NC and CPAP with high [id number]. He was started on prednisone taper and Bactrim IV 15mg/kg/day on 03/08, transitioned Felicitas 03/14. 24-hour events: -Tolerated HFNC overnight 50-60% -On low-flow NC 6L today Subjective: I slept even better than last night. My breathing feels good. Data: VITALS Temp: [36.7 ??C (98.1 ??F)-37.1 ??C (98.8 ??F)] Heart Rate: [70-91] Resp: [17-32] BP: (98-136)/(58-71) SpO2: [90 %-97 %] Heart Rate from SpO2: [72 bpm-89 bpm] VENT SETTINGS: NA Recent Labs 03/12/20 0404 PHART 7.54* [id number] 27* PO2ART 64* [id number] 23.0 Intake/Output Summary (Last 24 hours) at 03/17/2020 0803 Last data filed at 03/17/2020 0600 Gross per 24 hour Intake 1120 ml Output 2875 ml Net -1755 ml Output source:Urine Last wbc, hgb, hct plt Recent Labs 03/17/20 012 WBC 7.7 HGB 10.1* HCT 30.5* Last 3 Lytes Recent Labs 03/17/20 0122 03/16/20 0212 03/15/20 0040 NA 130* 130* 129* K 4.9 4.7 4.9 CL 92* 93* 93* CO2 25 26 25 BUN 19 19 25* CREATININE 0.64* 0.56* 0.60* Last 3 LFTs Recent Labs 03/08/20 2200 02/09/20 0911 01/23/20 0853 11/21/19 0829 AST 35 18 37 40* ALT 43 75* 78* 33 ALKPHOS 54 37* 37* 37* BILITOT 0.4 0.5 0.7 0.5 BILIDIR -- -- -- 0.1 Last Ca, Mg, Phos Recent Labs 03/17/20 0122 03/15/20 0040 CALCIUM 9.4 < > 9.3 PHOS -- -- 3.1 < > = values in this interval not displayed. Last 3 Coags No results for input(s): PT, INR, PTT in the last 168 hours. MICRO Microbiology Results (Last 30 days) Procedure Component Value Units Date/Time Blood culture [[id number]] Collected: 03/11/202349 Lab Status: Final result Specimen: Blood Updated: 03/17/20 07 Blood Culture No growth at 5 days. Blood culture [[id number]] Collected: 03/11/202349 Lab Status: Final result Specimen: Blood Updated: 03/17/20700 Blood Culture No growth at 5 days. Pneumocystis Carinii Stain Bronchial Alveolar Lavage [[id number]] (Abnormal) Collected: 03/09/201248 Lab Status: Final result Specimen: Bronchial Alveolar Lavage Updated: 03/09/202105 Pneumocystis Carinii Stain -- Fluorescent stain positive for: Pneumocystis jiroveci (carinii) Results called to and read back by DR. EMZA. Cystic Fibrosis Respiratory Culture Cystic Fibrosis Bronchoalveolar Lavage [[id number]] Collected: 03/09/20 124 Lab Status: Final result Specimen: Cystic Fibrosis Bronchoalveolar Lavage Updated: 03/14/20 1226 Cystic Fibrosis Respiratory Culture No growth AFB culture Bronchial Alveolar Lavage [[id number]] Collected: 03/09/201248 Lab Status: Preliminary result Specimen: Bronchial Alveolar Lavage Updated: 03/13/20 1402 Acid Fast Bacilli Culture -- No Acid Fast Bacilli isolated to date If active tuberculosis is suspected, the patient should be on [employer]. Call Infection Prevention for assistance if needed. Acid Fast Stain No Acid Fast Bacilli seen Fungus Culture & Calc Stain Bronchial Alveolar Lavage [[id number]] Collected: 03/09/201248 Lab Status: Preliminary result Specimen: Bronchial Alveolar Lavage Updated: 03/12/20 1004 Fungus culture [[id number]] Collected: 03/09/201248 Lab Status: Preliminary result Specimen: Bronchial Alveolar Lavage Updated: 03/12/20 100 Fungus Culture No Fungus isolated to date Calcofluor White Stain [[id number]] Collected: 03/09/201248 Lab Status: Final result Specimen: Bronchial Alveolar Lavage Updated: 03/09/20 2144 Calcofluor Stain Calcofluor White Preparation: Negative COVID-19 PCR [[id number]] Collected: 03/09/201248 Lab Status: Final result Specimen: Other Updated: 03/10/20 1107 SARS-CoV-2 RNA Not Detected Comment: This result should be interpreted in combination with the clinical observations, patient history and epidemiological information. For testing of asymptomatic individuals, assay performance characteristics and clinical utility have not been evaluated. Testing for SARS-CoV-2 (Severe acute respiratory syndrome coronavirus 2, formerly known as 2019 novel coronavirus or 2019-nCoV) to aid in the diagnosis of COVID-19 is performed using the [employer] SARS-CoV-2 as authorized by the FDA Emergency Use Authorization (EUA). This EUA assay is intended for In-vitro Diagnostic (IVD) use with respiratory specimens such as nasopharyngeal swabs collected from individuals during the acute phase of infection. This assay is performed based on the instructions for use provided by the [employer] and additional guidance provided by CDC and FDA. Testing is performed in the [facility] Laboratory within the Department of Pathology and Laboratory Medicine at [facility], certified under the Clinical Laboratory Improvement Amendments of 1988 (CLIA), 42 U.S.C. section 263a, to perform high complexity tests. Assay performance has been verified according to clinical laboratory regulatory requirements. Test results are provided above. A result of Not Detected indicates that the viral RNA target is not present but does not preclude SARS-CoV-2 infection. False negative results may occur if a specimen is improperly collected, transported or handled; if amplification inhibitors are present; or if inadequate numbers of viral particles are present in the specimen. A result of Detected suggests a current or recent infection and the patient is presumed to be infected. As required or requested by public health authorities, positive specimens may be sent for additional testing. Positive and negative predictive values for this test are highly dependent on disease prevalence. A result of Invalid indicates that neither the viral RNA targets nor the internal control target was detected. An invalid result suggests the presence of inhibitors. Recollection is recommended in the case of an invalid result. CDC COVID-19 criteria for testing on human specimens and clinical management guidance information are available at the CDC Coronavirus Disease 2019 (COVID-19) webpage under Information for Healthcare Professionals (https://www.cdc.gov/coronavirus/2019-ncov/hcp/index.html) Additional information about this and other EUA tests can be found in provider and patient fact sheets at the following FDA website: https://www.fda.gov/medical-devices/pkckzkzvg-trqnrqqwed-bowkalu-devices/emergen nt-who-nxmumhifpunfux#hvxcc86ivr SARS-Cov-2 RNA Source Other Respiratory Panel PCR [[id number]] Collected: 03/08/202253 Lab Status: Final result Specimen: Nasopharyngeal Swab Updated: 03/09/20 1511 Resp Panel Source SOCIAL WORK LECTURER Swab Resp Panel PCR Negative Comment: Respiratory Panels are performed on the [employer], using multiplexed PCR nucleic acid detection. Negative results do not preclude respiratory infection and should not be used as the sole basis for diagnosis, treatment or other management decisions. Adenovirus Not Detected Coronavirus HKU1 Not Detected Coronavirus NL63 Not Detected Coronavirus 229E Not Detected Coronavirus OC43 Not Detected Human Metapneumovirus Not Detected Human Rhino/Enterovirus Not Detected Influenza A Not Detected Influenza B Not Detected Parainfluenza 1 Not Detected Parainfluenza 2 Not Detected Parainfluenza 3 Not Detected Parainfluenza 4 Not Detected Respiratory Syncytial Virus Not Detected Chlamydophila pneumoniae Not Detected Mycoplasma pneumoniae Not Detected Legionella Urinary Antigen [[id number]] Collected: 03/08/202253 Lab Status: Final result Specimen: Urine Updated: 03/09/20 1156 Legionella Urinary Antigen Negative Comment: A negative Legionella Urinary Antigen by EIA suggests no recent or current infection with L. pneumophila Serogroup 1. Antigen may not be present in urine in early infection, and the level of antigen present in the urine may be below the detection limit of the test. Sensitivity: 95% Specificity 95%. COVID-19 PCR [[id number]] Collected: 03/08/20 2223 Lab Status: Final result Specimen: Nasopharyngeal Swab Updated: 03/09/20 0132 Rapid SARS-CoV-2 RNA Not Detected Comment: This result should be interpreted in combination with the clinical observations, patient history and epidemiological information. For testing of asymptomatic individuals, assay performance characteristics and clinical utility have not been evaluated. Testing for SARS-CoV-2 (Severe acute respiratory syndrome coronavirus 2, formerly known as 2019 novel coronavirus or 2019-nCoV) to aid in the diagnosis of COVID-19 is performed using the [employer]plex[employer] COVID-19 Direct Assay by [employer] as authorized by the FDA issued Emergency Use Authorization (EUA). This assay is intended for In-vitro Diagnostic (IVD) use with nasopharyngeal swabs collected from individuals meeting the CDC criteria for testing. The assay is performed based on the instructions for use and additional guidance provided by the FDA. Testing is performed in the Microbiology Laboratory within the Department of Pathology and Laboratory Medicine at [facility], certified under the Clinical Laboratory Improvement Amendments of 1988 (CLIA), 42 U.S.C. section 263a, to perform high complexity tests. Assay performance has been verified according to clinical laboratory regulatory requirements. Test results are provided above. A result of Not Detected indicates that the viral RNA target is not present but does not preclude SARS-CoV-2 infection. False negative results may occur if a specimen is improperly collected, transported or handled; if amplification inhibitors are present; or if inadequate numbers of viral particles are present in the specimen. A result of Detected suggests a current or recent infection and the patient is presumed to be infected. Positive and negative predictive values for this test are highly dependent on disease prevalence. A result of Invalid indicates the inability to conclusively determine the presence or absence of SARS-CoV-2 RNA in the sample which can be due to a variety of factors. Recollection is recommended in the case of an invalid result. CDC COVID-19 criteria for testing on human specimens and clinical management guidance information are available at the CDC Coronavirus Disease 2019 (COVID-19) webpage under Information for Healthcare Professionals (https://www.cdc.gov/coronavirus/2019-ncov/hcp/index.html). SARS-CoV-2 Source [employer] Swab Blood culture [[id number]] Collected: 03/08/202199 Lab Status: Final result Specimen: Blood Updated: 03/14/20700 Blood Culture No growth at 5 days. Blood culture [[id number]] Collected: 03/08/202199 Lab Status: Final result Specimen: Blood Updated: 03/14/20700 Blood Culture No growth at 5 days. Antimicrobials: Bactrim PO 15mg/kg/day EC/26, Sinus rhythm Imaging notable for: Results for orders placed or performed during the hospital encounter of 03/08/20 XR Abdomen 1 view (Generic) (Exam End: 03/09/2020 9:40 PM) Impression OG tube tip in the proximal stomach with sidehole at the distal esophagus. Thank you for letting us participate in the care of this patient. For questions regarding this report, please contact the number below. Abdomen 1 view (Generic) (Exam End: 03/10/2020 1:28 AM) Impression OG tube terminates within the stomach, with sidehole past the GE junction. Thank you for letting us participate in the care of this patient. For questions regarding this report, please contact the number below. Chest One View (Exam End: 03/10/2020 4:03 AM) Impression Grossly unchanged multifocal pulmonary opacities that may represent any combination of pulmonary edema, ARDS, and/or atypical/multifocal pneumonia. I have personally reviewed the image(s) and the resident's interpretation and agree with the findings, Yanet Connell at 03/10/2020 4:25 AM Thank you for letting us participate in the care of this patient. For questions regarding this report, please contact the number below. Chest One View (Exam End: 03/11/2020 11:43 PM) Impression No significant interval change in the multifocal pulmonary opacities. Thank you for letting us participate in the care of this patient. For questions regarding this report, please contact the number below. Abdomen 1 view (Generic) (Exam End: 03/15/2020 9:54 AM) Impression Normal bowel gas pattern. Thank you for letting us participate in the care of this patient. For questions regarding this report, please contact the number below. : Well developed, well-nourished, critically-ill man who appears documented age. Pleasant and conversational. Neuro: Alert, oriented x4. Follows commands and moves all extremities with equal strength. HEENT: Normocephalic, atraumatic. Mucous membranes moist. No scleral icterus. Neck: Supple, without evidence of JVD. CV: Regular rate and rhythm with no murmurs, rubs, or gallops. 1+ pitting edema to lower extremities, L>R. Peripheral pulses 2+ bilaterally. Cap refill <2 seconds Pulm: Breathing unlabored at rest. Dyspnea and moderate retractions with minimal exertion. Chest rise symmetrical. Slightly diminished breath sounds to bases bilaterally, otherwise clear. Abd: Round, softly distended. Non-tender. Normoactive bowel sounds. Skin: Warm, dry, and intact. No rash, lesion, or erythema. Assessment:Jeison Cervantes is a 64 y.o. male with PMH autoimmune necrotizing myositis and DVT who is admitted to [facility] with hypoxemic respiratory failure requiring secondary to PJP infection. Course complicated constipation without ileus and mild SIADH Plan: NEURO/MSK: Hx autoimmune necrotizing myopathy, spinal stenosis L3-L4 -Rheumatology following, appreciate recommendations -Continue to hold home immunosuppressants with plan to restart cellcept and methotrexate after completion of PJP treatment (03/30) as discussed with Rheum fellow. No plan to restart home steroid dosing as pt had been on planned outpatient taper with hopes to receive steroid injection for spinal stenosis -Tylenol 650mg every 6 hours PRN pain -PT/OT consulted PULM: Hypoxemic respiratory failure requiring HFNC in the setting of PJP pneumonia -Wean FiO2 as able to maintain SpO2 >89% -Lasix 20mg IVP x1 today (monitor for improvement in O2) -Continue Bactrim PO (15mg/kg) -Continue prednisone taper (40 mg daily until 03/19, then 20 mg daily x11 days, to end 03/30) CARD/VASC:MARISELA -Continuous telemetry monitoring GI/NUTRITION: Constipation, abdominal distension without evidence of ileus. Critical Illness Nutrition -Regular diet -Bowel regimen: senna-colace 2 tabs, BID, daily miralax, and bisacodyl suppository PRN -Zofran 4mg PRN for nausea -Encourage mobilization as O2 requirements allow RENAL/FEN/: Hyponatremia likely secondary to SIADH (likely 2/2 PJP pneumonia.) Urinary retention, Hx BPH -Dubois replaced yesterday for retention -Urine studies suggest concentrated urine/SIADH, however pt is auto-diuresing suggesting he is mobilizing fluids -Lasix as above, goal fluid balance negative 1.5-3L -Continue home finasteride 5mg and tamulosin 0.4mg daily -Daily BMP, mag, phos -K+ repletion protocol ID:PJP pneumonia -Continue Bactrim (15mg/kg/day) x 21 days, will complete 03/29 ENDO: Glycemic control while on steroids -POC glucose AC/HS -Increase insulin sliding scale to resistant scale to improve meal-time hyperglycemia -POC glucose check at ~0100 to monitor for hypoglycemia -Continue glargine 5U at HS -Steroids as above HEME: Hx DVT -Continue home Xarelto 20mg daily PROPHY: -Xarelto and SCDs to bilateral lower extremities for DVT prophylaxis -GI prophylaxis no longer indicated -PT/OT:Ordered LINES/TUBES: -PIV only PSYCHO-SOCIAL: -Decision making:Patient -Code status:Full Code Disposition: Pt to remain in the ICU, likely transfer to ISCU in AM Patient seen and examined with Dr. Arianne Barboza, DIRECTOR [facility] #[id number] Critical Care Blue Team [id number] Pavan Acuña MD - 03/17/2020 7:46 AM EDT MICU STAFF PROGRESS NOTE Critical Care Medicine Author: PAVAN ACUÑA Patient seen and examined on critical care rounds. Interval Events: High flow between 50-60 overnight. Negative 1.6L without lasix. Has been intermittently on 6L NC this morning. Had to have dubois replaced after post- void residual measured at 700 cc. Active problems: ?? Acute hypoxemic respiratory failure ?? Pneumocystis jiroveci pneumonia ?? Autoimmune necrotizing myopathy ?? DVT on Xarelto ?? Hyperglycemia secondary to steroids ?? Ileus ?? Hyponatremia, possible SIADH ?? Urinary retention requiring dubois Exam: Last value Range last 24 hrs Temperature Temp: 37 ??C (98.6 ??F) Temp: [36.7 ??C (98.1 ??F)-37.1 ??C (98.8 ??F)] Heart Rate Heart Rate: 77 Heart Rate: [70-91] Blood Pressure BP: 106/63 BP: (98-136)/(58-71) Respiratory Rate Resp: 25 Resp: [17-32] SpO2 SpO2: 92 % SpO2: [90 %-97 %] Art BP BP (Arterial Line): -- Ventilator: HFNC 45L and 50-60% Current Drips: None Awake and alert, comfortable appearing Lungs clear anteriorly, rare crackles at the bases laterally Heart regular, S1 S2 + 0 Abdomen soft 1+ extremity edema, L>R Labs/studies: WBC 6.7 Hg 10.2 plt 244 Na 130 K 4.7 Cl 93 CO2 26 BUN 19 Creat 0.56 ASSESSMENT, MANAGEMENT, and DECISION MAKIN64 y/o man with necrotizing myositis that has been controlled with immunosuppression now complicatedby acute hypoxic respiratory failure and ARDS from PJP pneumonia. His oxygenation continues to improve and he has even trialed low flow nasal cannula today. He remains tenuous from a respiratory standpoint, but may soon be stable enough to transfer out of the ICU. He continues to autodiurese with astable sodium and creatinine. Plan: ?? Wean FiO2 as tolerated, trial low-flow intermittently ?? Lasix 20 today ?? Continue prednisone taper for PJP ?? Continue oral bactrim ?? Hold other immunosuppression for now ?? Continue meds for BPH ?? Continue low dose glargine and SSI ?? PT/OT ?? Continue xarelto IS PATIENT CRITICALLY ILL ? Is there a high potential of sudden, clinically significant, or life threatening deterioration? Yes Is there a need for direct personal assessment and management to treat/prevent multiple vital organfailure/deterioration? Yes If this patient is not critically ill, I certify the patient requires continued in-patient hospitalization for [ ] PATIENT IS CRITICALLY ILL WITH THESE DIAGNOSES BEING MANAGED BY [facility] TEAM: ARDs Pneumonia Bacterial: Specify suspected or known bacteria: PJP Respiratory Failure Acute with hypoxia I personally performed 30 minutes of aggregate critical care time exclusive of procedures and teaching. This includes time spent during direct patient evaluation and reassessment, interpreting diagnostic tests, directing life and/or organ supporting interventions and documentation on the unit. PAVAN ACUÑA Bashir schuler RCP - 03/16/2020 7:29 PM EDT Respiratory Therapy Heated Humidified High Flow 64 y/o man with 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 He has since been admitted with acute hypoxic respiratory failure and ARDS from PJP pneumonia. His oxygenation has improved since extubation, but he still requires high flow at >60% and his reserve is very poor with desaturations with any exertion. Today he appears more comfortable overall and his abdomen is less distended. His sodium improved somewhat with autodiuresis, but now he is having some symptoms ofurinary obstruction since the dubois was removed. INDICATIONS: High O2 requirement and Heat/Humidification HIGH FLOW SETTINGS: Interface: High flow nasal cannula Flow: 45 L/min FiO2: 50 % increased back to 60% at ~ 0600 post talking with RN and some movement. VITAL SIGNS: HR: 79 RR: 17 SpO2: 94 % SKIN ASSESSMENT: NIV Skin Assessment WDL: WDL Mepilex Applied: Yes Nares Assessment WDL: WDL CURRENT MEDICATIONS: , BREATH SOUNDS: Justen diminished Last Chest X-ray: Results for orders placed during the hospital encounter of 03/08/20 XR Chest One View Narrative EXAMINATION: XR CHEST ONE VIEW CLINICAL HISTORY: Worsening SOB in the setting of PJP, concern for superimposed bacterial pneumonia vs fluid overload TECHNIQUE: 1 view of the chest COMPARISON: Chest radiograph from March 10, 2020 FINDINGS: The endotracheal and enteric tube have been removed. Low lung volumes with unchanged mild elevation of the right hemidiaphragm relative to the left. There is been no interval change in the diffuse interstitial opacities with superimposed patchy airspace opacities in the perihilar region, right upper lobe and most confluent in the retrocardiac region. No large effusion. No pneumothorax. Stable cardiac silhouette. Impression No significant interval change in the multifocal pulmonary opacities. Thank you for letting us participate in the care of this patient. For questions regarding this report, please contact the number below. SSMENT: Pt seen and the chart reviewed. The pt is on HFNC and tolerating this modality well. He has been weaned to 50% overnight and appears to have rested. PLAN: Wean Fio2 as able. Support pulmonary hygiene and required. Fio2 increased back to 60% this am, pt talking to RN and moving. SABRA KoP Charisse Rosales RN - 03/16/2020 5:09 PM EDTOUTCOME EVALUATION NOTE: OUTCOME SUMMARY: No acute events. at bedside. Up to chair this afternoon w/ lift. Neuro- AxOx4. Pleasant/nonimpulsive. Afebrile. Cardiac- NSR on monitor. BP WNL. Respiratory- on HFNC w/ RAYGOZA and frequent desats (to mid-80's) but recovering more quickly. Clear lung sounds. GI/- Initially voiding small amts in urinal, bladder scanned >500cc, Dubois placed (Per blue team order/protocol) to good effect (see docflows for details). Minimal appetite. Hyperglycemic (see MARfor details). IV Drips: none PLAN MOVING FORWARD: Increase activity, wean O2 as tolerated, encourage PO intake. INDIVIDUALIZED FALL PREVENTION INTERVENTIONS: Patient-specific fall risk factors per assessment: [current deficits]: Lines, drains, cords and generalized weakness. Assistance [level of assistance required for transfers and ambulation]: 2 assist Supervision [direct monitoring required during toileting and ADLs]: Alarms active, audible and set appropriately. Purposeful rounding, frequent visual assessments. Surveillance [continuous indirect monitoring]: [place] Critical Care Monitor [facility] GOAL OUTCOME EVALUATION: Sarah Spangler RCP - 03/16/2020 5:07 PM EDTRespiratory Therapy Heated Humidified High Flow INDICATIONS: High O2 requirement and Heat/Humidification HIGH FLOW SETTINGS: Interface: High flow nasal cannula Flow: (S) 45 L/min FiO2: (S) 65 % VITAL SIGNS: HR: 79 RR: 25 SpO2: 95 % SKIN ASSESSMENT: NIV Skin Assessment WDL: WDL Mepilex Applied: Yes Nares Assessment WDL: WDL BREATH SOUNDS: Clear ASSESSMENT: Pt received on the above listed HFNC. Covering RT given report [id number]. PLAN: Wean fiO2 as tolerated. CPAP as needed LC ZEPEDAlectronically signed by Sarah Spangler RCP at 03/16/2020 5:07 PM EDTOHemanth May RRT - 03/16/2020 1:58 PM EDT Pt remains on HFNC as noted. Breathing comfortably at this time. Increase SOB with exertion but recovers well. 03/16/20 1300 Oxygen Therapy O2 Device High flow nasal cannula O2 Flow Rate (L/min) 45 L/min FiO2 (%) 65 % SpO2 95 % Plan to continue to wean FIO2 as tolerated and transition tolow flow when able. Jie Barboza APRN - 03/16/2020 11:15 AM EDT Jie Barboza APRN CRITICAL CARE PROGRESS NOTE Jeison Cervantes [id number] Admitted:03/08/2020 9:32 PM ICU day: 6 Critical Care Diagnosis: Jeison Cervantes is a 64 y.o. male with PMH autoimmune necrotizing myopathy(treated with methotrexate, cellcept,??and chronic steroids), severe spinal stenosis of L3-L4, DVT (on xarelto)??who is admitted to [facility] for hypoxemic respiratory failure secondary to PJP pneumonia Hospital course has been significant for: -Hypoxemic respiratory failure secondary to PJP pneumonia: Pt initially presented to [facility] for shortness of breath, fever, and myalgias. He was ruled-out for COVID. CT chest concerning for GGOs predominantly in mid-upper lung zones and pt was notably not given PJP prophylaxis while immunosuppressed. The patient was intubated and bronchoscopy was performed on 03/09, and BAL revealed PJP pneumonia. The patient was subsequently extubated 03/11, but has continued to require high-flow NC and CPAP with high FiO2 requirements (60-100%) to maintain SpO2 >90%. He was started on prednisone taper and Bactrim IV 15mg/kg/day on 03/08, transitioned to PO 03/14. 24-hour events: -VSS -SSE with 3 small bowel movements overnight -Tolerated HFNC overnight 65-70% Subjective: I slept well overnight, but I still feel very tired this morning. Data: VITALS Temp: [36.7 ??C (98.1 ??F)-37.5 ??C (99.5 ??F)] Heart Rate: [74-86] Resp: [16-34] BP: (96-115)/(59-73) SpO2: [86 %-97 %] Heart Rate from SpO2: [74 bpm-86 bpm] VENT SETTINGS: NA HFNC 55%/45L Recent Labs 03/12/20 0404 PHART 7.54* [id number] 27* PO2ART 64* SOH5CVR 23.0 Intake/Output Summary (Last 24 hours) at 03/16/2020 0744 Last data filed at 03/16/2020 0600 Gross per 24 hour Intake 820 ml Output 2330 ml Net -1510 ml Output source:Urine Last wbc, hgb, hct plt Recent Labs 03/16/20 0212 WBC 6.7 HGB 10.2* HCT 29.8* Last 3 Lytes Recent Labs 03/16/20 0212 03/15/20 0040 03/14/20 0040 NA 130* 129* 131* K 4.7 4.9 5.2* CL 93* 93* 93* CO2 26 25 25 BUN 19 25* 18 CREATININE 0.56* 0.60* 0.62* Last 3 LFTs Recent Labs 03/08/20 2200 02/09/20 0911 01/23/20 0853 11/21/19 0829 AST 35 18 37 40* ALT 43 75* 78* 33 ALKPHOS 54 37* 37* 37* BILITOT 0.4 0.5 0.7 0.5 BILIDIR -- -- -- 0.1 Last Ca, Mg, Phos Recent Labs 03/16/20 0212 03/15/20 0040 CALCIUM 9.2 9.3 PHOS -- 3.1 Last 3 Coags No results for input(s): PT, INR, PTT in the last 168 hours. MICRO Microbiology Results (Last 30 days) Procedure Component Value Units Date/Time Blood culture [[id number]] Collected: 03/11/202349 Lab Status: Preliminary result Specimen: Blood Updated: 03/16/20700 Blood Culture No growth at 4 days. Blood culture [[id number]] Collected: 03/11/202349 Lab Status: Preliminary result Specimen: Blood Updated: 03/16/20700 Blood Culture No growth at 4 days. Pneumocystis Carinii Stain Bronchial Alveolar Lavage [[id number]] (Abnormal) Collected: 03/09/201248 Lab Status: Final result Specimen: Bronchial Alveolar Lavage Updated: 03/09/202105 Pneumocystis Carinii Stain -- Fluorescent stain positive for: Pneumocystis jiroveci (carinii) Results called to and read back by DR. MEZA. Cystic Fibrosis Respiratory Culture Cystic Fibrosis Bronchoalveolar Lavage [[id number]] Collected: 03/09/201248 Lab Status: Final result Specimen: Cystic Fibrosis Bronchoalveolar Lavage Updated: 03/14/20 1226 Cystic Fibrosis Respiratory Culture No growth AFB culture Bronchial Alveolar Lavage [[id number]] Collected: 03/09/201248 Lab Status: Preliminary result Specimen: Bronchial Alveolar Lavage Updated: 03/13/20 1402 Acid Fast Bacilli Culture -- No Acid Fast Bacilli isolated to date If active tuberculosis is suspected, the patient should be on [employer]. Call Infection Prevention for assistance if needed. Acid Fast Stain No Acid Fast Bacilli seen Fungus Culture & Calc Stain Bronchial Alveolar Lavage [[id number]] Collected: 03/09/201248 Lab Status: Preliminary result Specimen: Bronchial Alveolar Lavage Updated: 03/12/20 1004 Fungus culture [[id number]] Collected: 03/09/201248 Lab Status: Preliminary result Specimen: Bronchial Alveolar Lavage Updated: 03/12/20 100 Fungus Culture No Fungus isolated to date Calcofluor White Stain [[id number]] Collected: 03/09/201248 Lab Status: Final result Specimen: Bronchial Alveolar Lavage Updated: 03/09/20 2144 Calcofluor Stain Calcofluor White Preparation: Negative COVID-19 PCR [[id number]] Collected: 03/09/201248 Lab Status: Final result Specimen: Other Updated: 03/10/20 1107 SARS-CoV-2 RNA Not Detected Comment: This result should be interpreted in combination with the clinical observations, patient history and epidemiological information. For testing of asymptomatic individuals, assay performance characteristics and clinical utility have not been evaluated. Testing for SARS-CoV-2 (Severe acute respiratory syndrome coronavirus 2, formerly known as 2019 novel coronavirus or 2019-nCoV) to aid in the diagnosis of COVID-19 is performed using the [employer] RealTime SARS-CoV-2 as authorized by the FDA Emergency Use Authorization (EUA). This EUA assay is intended for In-vitro Diagnostic (IVD) use with respiratory specimens such as nasopharyngeal swabs collected from individuals during the acute phase of infection. This assay is performed based on the instructions for use provided by the [employer] and additional guidance provided by CDC and FDA. Testing is performed in the [facility] within the Department of Pathology and Laboratory Medicine at [facility], certified under the Clinical Laboratory Improvement Amendments of 1988 (CLIA), 42 U.S.C. section 263a, to perform high complexity tests. Assay performance has been verified according to clinical laboratory regulatory requirements. Test results are provided above. A result of Not Detected indicates that the viral RNA target is not present but does not preclude SARS-CoV-2 infection. False negative results may occur if a specimen is improperly collected, transported or handled; if amplification inhibitors are present; or if inadequate numbers of viral particles are present in the specimen. A result of Detected suggests a current or recent infection and the patient is presumed to be infected. As required or requested by public health authorities, positive specimens may be sent for additional testing. Positive and negative predictive values for this test are highly dependent on disease prevalence. A result of Invalid indicates that neither the viral RNA targets nor the internal control target was detected. An invalid result suggests the presence of inhibitors. Recollection is recommended in the case of an invalid result. CDC COVID-19 criteria for testing on human specimens and clinical management guidance information are available at the CDC Coronavirus Disease 2019 (COVID-19) webpage under Information for Healthcare Professionals (https://www.cdc.gov/coronavirus/2019-ncov/hcp/index.html) Additional information about this and other EUA tests can be found in provider and patient fact sheets at the following FDA website: https://www.fda.gov/medical-devices/ftqusevao-zghwiqmthq-fiagrie-devices/emergen mt-kqj-bikqfmibmzsuiq#ydydt76jsf SARS-Cov-2 RNA Source Other Respiratory Panel PCR [[id number]] Collected: 03/08/202253 Lab Status: Final result Specimen: Nasopharyngeal Swab Updated: 03/09/20 1511 Resp Panel Source SOCIAL WORK L[employer]ER Swab Resp Panel PCR Negative Comment: Respiratory Panels are performed on the [employer], using multiplexed PCR nucleic acid detection. Negative results do not preclude respiratory infection and should not be used as the sole basis for diagnosis, treatment or other management decisions. Adenovirus Not Detected Coronavirus HKU1 Not Detected Coronavirus NL63 Not Detected Coronavirus 229E Not Detected Coronavirus OC43 Not Detected Human Metapneumovirus Not Detected Human Rhino/Enterovirus Not Detected Influenza A Not Detected Influenza B Not Detected Parainfluenza 1 Not Detected Parainfluenza 2 Not Detected Parainfluenza 3 Not Detected Parainfluenza 4 Not Detected Respiratory Syncytial Virus Not Detected Chlamydophila pneumoniae Not Detected Mycoplasma pneumoniae Not Detected Legionella Urinary Antigen [[id number]] Collected: 03/08/202253 Lab Status: Final result Specimen: Urine Updated: 03/09/20 1156 Legionella Urinary Antigen Negative Comment: A negative Legionella Urinary Antigen by EIA suggests no recent or current infection with L. pneumophila Serogroup 1. Antigen may not be present in urine in early infection, and the level of antigen present in the urine may be below the detection limit of the test. Sensitivity: 95% Specificity 95%. COVID-19 PCR [[id number]] Collected: 03/08/20 2223 Lab Status: Final result Specimen: Nasopharyngeal Swab Updated: 03/09/20 0132 Rapid SARS-CoV-2 RNA Not Detected Comment: This result should be interpreted in combination with the clinical observations, patient history and epidemiological information. For testing of asymptomatic individuals, assay performance characteristics and clinical utility have not been evaluated. Testing for SARS-CoV-2 (Severe acute respiratory syndrome coronavirus 2, formerly known as 2019 novel coronavirus or 2019-nCoV) to aid in the diagnosis of COVID-19 is performed using the [employer] COVID-19 Direct Assay by [employer] as authorized by the FDA issued Emergency Use Authorization (EUA). This assay is intended for In-vitro Diagnostic (IVD) use with nasopharyngeal swabs collected from individuals meeting the CDC criteria for testing. The assay is performed based on the instructions for use and additional guidance provided by the FDA. Testing is performed in the Microbiology Laboratory within the Department of Pathology and Laboratory Medicine at [facility], certified under the Clinical Laboratory Improvement Amendments of 1988 (CLIA), 42 U.S.C. section 263a, to perform high complexity tests. Assay performance has been verified according to clinical laboratory regulatory requirements. Test results are provided above. A result of Not Detected indicates that the viral RNA target is not present but does not preclude SARS-CoV-2 infection. False negative results may occur if a specimen is improperly collected, transported or handled; if amplification inhibitors are present; or if inadequate numbers of viral particles are present in the specimen. A result of Detected suggests a current or recent infection and the patient is presumed to be infected. Positive and negative predictive values for this test are highly dependent on disease prevalence. A result of Invalid indicates the inability to conclusively determine the presence or absence of SARS-CoV-2 RNA in the sample which can be due to a variety of factors. Recollection is recommended in the case of an invalid result. CDC COVID-19 criteria for testing on human specimens and clinical management guidance information are available at the CDC Coronavirus Disease 2019 (COVID-19) webpage under Information for Healthcare Professionals (https://www.cdc.gov/coronavirus/2019-ncov/hcp/index.html). SARS-CoV-2 Source SOCIAL WORK LECTURER Swab Blood culture [[id number]] Collected: 03/08/202199 Lab Status: Final result Specimen: Blood Updated: 03/14/20700 Blood Culture No growth at 5 days. Blood culture [[id number]] Collected: 03/08/202199 Lab Status: Final result Specimen: Blood Updated: 03/14/20700 Blood Culture No growth at 5 days. Antimicrobials: Bactrim PO 15mg/kg/day EC/26, Sinus rhythm Imaging notable for: Results for orders placed or performed during the hospital encounter of 03/08/20 XR Abdomen 1 view (Generic) (Exam End: 03/09/2020 9:40 PM) Impression OG tube tip in the proximal stomach with sidehole at the distal esophagus. Thank you for letting us participate in the care of this patient. For questions regarding this report, please contact the number below. Abdomen 1 view (Generic) (Exam End: 03/10/2020 1:28 AM) Impression OG tube terminates within the stomach, with sidehole past the GE junction. Thank you for letting us participate in the care of this patient. For questions regarding this report, please contact the number below. Chest One View (Exam End: 03/10/2020 4:03 AM) Impression Grossly unchanged multifocal pulmonary opacities that may represent any combination of pulmonary edema, ARDS, and/or atypical/multifocal pneumonia. I have personally reviewed the image(s) and the resident's interpretation and agree with the findings, Yanet Connell at 03/10/2020 4:25 AM Thank you for letting us participate in the care of this patient. For questions regarding this report, please contact the number below. Chest One View (Exam End: 03/11/2020 11:43 PM) Impression No significant interval change in the multifocal pulmonary opacities. Thank you for letting us participate in the care of this patient. For questions regarding this report, please contact the number below. Abdomen 1 view (Generic) (Exam End: 03/15/2020 9:54 AM) Impression Normal bowel gas pattern. Thank you for letting us participate in the care of this patient. For questions regarding this report, please contact the number below. : Well developed, well-nourished, critically-ill man who appears documented age. Pleasant and conversational. Neuro: Alert, oriented x4. Follows commands and moves all extremities with equal strength. HEENT: Normocephalic, atraumatic. Mucous membranes moist. No scleral icterus. Neck: Supple, without evidence of JVD. CV: Regular rate and rhythm with no murmurs, rubs, or gallops. 1+ pitting edema to lower extremitiesbilaterally. Peripheral pulses 2+ bilaterally. Cap refill <2 seconds Pulm: Breathing unlabored at rest. Tachypnea and dyspnea with minimal exertion. Chest rise symmetrical. Diminished breath sounds to bases bilaterally Abd: Round, softly distended. Non-tender. Normoactive bowel sounds. Skin: Warm, dry, and intact. No rash, lesion, or erythema. Assessment:Jeison Cervantes is a 64 y.o. male with PMH necrotizing myositis (s/p IVIG, methotrexate,prednisone, cellcept,) DVT (on xarelto,) spinal stenosis, who is admitted to [facility] with hypoxemic respiratory failure requiring HFNC secondary to PJP infection. Course complicated constipation and SIADH Plan: NEURO/MSK: Hx autoimmune necrotizing myopathy, spinal stenosis L3-L4 -Rheumatology following, appreciate recommendations -Continue to hold home immunosuppressants with plan to restart cellcept and methotrexate after completion of PJP treatment (03/30) as discussed with Rheum fellow. No plan to restart home steroid dosing as pt had been on planned outpatient taper with hopes to receive steroid injection for spinal stenosis -Dilaudid 0.5mg every 4 hours PRN pain -Tylenol 650mg every 6 hours PRN pain -PT/OT consulted PULM: Hypoxemic respiratory failure requiring HFNC and CPAP in the setting of PJP pneumonia -Titrate FiO2 to maintain SpO2 >89% -Continue Bactrim PO (15mg/kg) -Continue prednisone taper (40 mg daily until 03/19, then 20 mg daily x11 days, to end 03/30) CARD/VASC:MARISELA -Continuous telemetry monitoring GI/NUTRITION: Constipation, abdominal distension without evidence of ileus. Critical Illness Nutrition -Zofran 4mg PRN for nausea -D/C protonix (no longer indicated with once-daily dosing of steroids) -Regular diet -Bowel regimen: senna-colace 2 tabs, BID, daily miralax, and bisacodyl suppository PRN -S/p SSE with adequate result RENAL/FEN/: Hyponatremia likely secondary to SIADH (likely 2/2 PJP pneumonia.) Urinary frequency s/p dubois removal with hx BPH -Plan to bladder scan for PVR and replace dubois if >300 -Urine studies suggest concentrated urine/SIADH, however pt is auto-diuresing suggesting he is mobilizing fluids -No plan for lasix today, but will consider tomorrow if oxygen requirements remain the same -Continue home finasteride 5mg and tamulosin 0.4mg daily -Daily BMP, mag, phos -Goal fluid balance even to net negative 1L ID:PJP pneumonia -Continue Bactrim (15mg/kg/day) x 21 days, will complete 03/29 ENDO: Glycemic control while on steroids -Glargine 5U at HS -Moderate insulin sliding scale -Steroids as above HEME: Hx DVT -Continue home Xarelto 20mg daily PROPHY: -Xarelto and SCDs to bilateral lower extremities for DVT prophylaxis -GI prophylaxis no longer indicated -PT/OT:Ordered LINES/TUBES: -PIV only PSYCHO-SOCIAL: -Decision making:Patient -Code status:Full Code Disposition: Pt to remain in the ICU Patient seen and examined with Dr. Arianne Barboza APRN #[id number] Critical Care Blue Team [id number] Pavan Acuña MD - 03/16/2020 7:43 AM EDT MICU STAFF PROGRESS NOTE Critical Care Medicine Author: PAVAN ACUÑA Patient seen and examined on critical care rounds. Interval Events: Afebrile again over the past 24 hours. Negative 1.5L spontaneously. Some charted stool output overnight. Did not use CPAP overnight, no change in HFNC requirement. Dubois removed yesterday, having some urinary frequency and dysuria since it was removed. Active problems: ?? Acute hypoxemic respiratory failure ?? Pneumocystis jiroveci pneumonia ?? Autoimmune necrotizing myopathy ?? DVT on Xarelto ?? Hyperglycemia secondary to steroids ?? Ileus ?? Hyponatremia, possible SIADH Exam: Last value Range last 24 hrs Temperature Temp: 36.9 ??C (98.4 ??F) Temp: [36.7 ??C (98.1 ??F)-37.5 ??C (99.5 ??F)] Heart Rate Heart Rate: 79 Heart Rate: [74-86] Blood Pressure BP: 115/70 BP: (96-115)/(59-73) Respiratory Rate Resp: 22 Resp: [16-34] SpO2 SpO2: 92 % SpO2: [86 %-97 %] Art BP BP (Arterial Line): -- Ventilator: HFNC 45L and 60-80% Current Drips: None Awake and alert, more comfortable today than yesterday Lungs clear anteriorly, rare crackles at the bases laterally Heart regular, S1 S2 + 0 Abdomen less distended, soft 1+ extremity edema Labs/studies: WBC 6.7 Hg 10.2 plt 244 Na 130 K 4.7 Cl 93 CO2 26 BUN 19 Creat 0.56 ASSESSMENT, MANAGEMENT, and DECISION MAKIN64 y/o man with 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 He has since been admitted with acute hypoxic respiratory failure and ARDS from PJP pneumonia. His oxygenation has improved since extubation, but he still requires high flow at >60% and his reserve is very poor with desaturations with any exertion. Today he appears more comfortable overall and his abdomen is less distended. His sodium improved somewhat with autodiuresis, but now he is having some symptoms ofurinary obstruction since the dubois was removed. Plan: ?? Wean FiO2 as tolerated ?? Continue bactrim po and steroids ?? Hold other immunosuppression per rheumatology ?? Negative fluid balance ?? Check bladder scan, may need dubois replaced ?? Continue meds for BPH ?? Continue low dose glargine ?? PT/OT ?? Continue xarelto IS PATIENT CRITICALLY ILL ? Is there a high potential of sudden, clinically significant, or life threatening deterioration? Yes Is there a need for direct personal assessment and management to treat/prevent multiple vital organfailure/deterioration? Yes If this patient is not critically ill, I certify the patient requires continued in-patient hospitalization for [ ] PATIENT IS CRITICALLY ILL WITH THESE DIAGNOSES BEING MANAGED BY [facility] TEAM: ARDs Pneumonia Bacterial: Specify suspected or known bacteria: PJP Respiratory Failure Acute with hypoxia I personally performed 30 minutes of aggregate critical care time exclusive of procedures and teaching. This includes time spent during direct patient evaluation and reassessment, interpreting diagnostic tests, directing life and/or organ supporting interventions and documentation on the unit. PAVAN ACUÑA Otilio Otero [facility] - 03/16/2020 4:29 AM EDT Respiratory Therapy NIV Note NIV Settings: NIV Mode: CPAP IPAP (cmH20): (S) 10 EPAP (cmH20): 10 FiO2 (%): 60 % NIV Measurements: Resp: 19 Mve: 27.1 Leak (L/min): 57 L/min Vte: 977 SpO2: 93 % Laboratory: Lab Results Component Value Date/Time PHART 7.54 (H) 03/12/2020 04:04 AM SGB1VBO 27 (L) 03/12/2020 04:04 AM PO2ART 64 (L) 03/12/2020 04:04 AM EJS5EHC 23.0 03/12/2020 04:04 AM BEART 0.4 03/12/2020 04:04 AM Last Chest X-ray: Results for orders placed during the hospital encounter of 03/08/20 XR Chest One View Narrative EXAMINATION: XR CHEST ONE VIEW CLINICAL HISTORY: Worsening SOB in the setting of PJP, concern for superimposed bacterial pneumonia vs fluid overload TECHNIQUE: 1 view of the chest COMPARISON: Chest radiograph from March 10, 2020 FINDINGS: The endotracheal and enteric tube have been removed. Low lung volumes with unchanged mild elevation of the right hemidiaphragm relative to the left. There is been no interval change in the diffuse interstitial opacities with superimposed patchy airspace opacities in the perihilar region, right upper lobe and most confluent in the retrocardiac region. No large effusion. No pneumothorax. Stable cardiac silhouette. Impression No significant interval change in the multifocal pulmonary opacities. Thank you for letting us participate in the care of this patient. For questions regarding this report, please contact the number below. Current Medications: Skin Assessment: NIV Skin Assessment WDL: WDL Mepilex Applied: Yes Nares Assessment WDL: WDL Breath Sounds: diminished.. Assessment: received patient on HFNC 45L , FiO2-60%. Patient resting comfortably. Pt did not use CPAP overnight, SpO2 at 92%. Plan: Continue to wean FiO2 as tolerated and encourage pt to not use CPAP unless necessary. LC Alonsolectronically signed by Otilio Lima RCP at 03/16/2020 4:36 AM EDKerry Barriga - 03/15/2020 2:00 PM EDTChaplaincy Encounter Note Patient Name: Jeison Cervantes : [id number] MR#: [id number] Admit Date: 03/08/2020 9:32 PM Hospital Day 7 days Narrative: Encountered patient's Debora, seated in Mall corridor, while patient slept. Assessment: Patient is supported by loving . Intervention and Outcome: Provided spiritual support to Debora. Follow-up: Will continue to be alert for support. Time in Direct Care: 15 min. Kerry English 03/15/2020 Gregorio Barrett RCP - 03/15/2020 1:49 PM EDTJames awake and on HFNC this morning, ~70%. He is tired appearing, no complaint of dyspnea. Clear equal breath sounds with no wheezing. He spent several hours on CPAP 10 overnight at ~50%. Didn't get much sleep he said. Main complaint this morning was nausea and stomach pain when asked. Supported him through the day on HFNC with sat goal of 89 or greater. He has so far spent this shifton between 55 and 80% O2. Will offer CPAP again tonight. Kerry george - 03/15/2020 10:35 AM EDTChaplaincy Encounter Note Patient Name: Jeison Cervantes : [id number] MR#: [id number] Admit Date: 03/08/2020 9:32 PM Hospital Day 7 days Narrative: Rounding on unit. Noticed patient's , Debora, bedside. Patient and Debora were receptive to canceling machine operator services. Assessment: Patient emotionally expressed discouragement after a good day yesterday and bad day today. Intervention and Outcome: Actively listened as patient shared discouragement, and Debora, offered reassurance that not every day would be a good day noting that patient did not sleep well. Provided prayer which gave comfort and peace. Follow-up: Will continue to support throughout hospitalization. Time in Direct Care: 5 min. Kerry English 03/15/2020 Jie gilliam APRN - 03/15/2020 9:30 AM EDT Jie Barboza APRN CRITICAL CARE PROGRESS NOTE Jeison Cervantes [id number] Admitted:03/08/2020 9:32 PM ICU day: 6 Critical Care Diagnosis: Jeison Cervantes is a 64 y.o. male with PMH autoimmune necrotizing myopathy(treated with methotrexate, cellcept,??and chronic steroids), severe spinal stenosis of L3-L4, DVT (on xarelto)??who is admitted to [facility] for hypoxemic respiratory failure secondary to PJP pneumonia Hospital course has been significant for: -Hypoxemic respiratory failure secondary to PJP pneumonia: Pt initially presented to [facility] for shortness of breath, fever, and myalgias. He was ruled-out for COVID. CT chest concerning for GGOs predominantly in mid-upper lung zones and pt was notably not given PJP prophylaxis while immunosuppressed. The patient was intubated and bronchoscopy was performed on 03/09, and BAL revealed PJP pneumonia. The patient was subsequently extubated 03/11, but has continued to require high-flow NC and CPAP with high FiO2 requirements (60-100%) to maintain SpO2 >90%. He was started on prednisone taper and Bactrim IV 15mg/kg/day on 03/08, transitioned to PO 03/14. 24-hour events: -IV infiltrated and removed -Glycemic control achieved with addition of glargine to insulin regimen -Pt reports some nausea this morning Subjective: I slept fair last night. Data: VITALS Temp: [36.7 ??C (98.1 ??F)-37.4 ??C (99.3 ??F)] Heart Rate: [69-102] Resp: [14-29] BP: (108-120)/(61-74) SpO2: [79 %-96 %] Heart Rate from SpO2: [68 bpm-102 bpm] VENT SETTINGS: NA HFNC 55%/45L Recent Labs 03/12/20 0404 PHART 7.54* PYP2LRA 27* PO2ART 64* HAS5DID 23.0 Intake/Output Summary (Last 24 hours) at 03/15/2020 0755 Last data filed at 03/15/2020 0600 Gross per 24 hour Intake 2252 ml Output 2040 ml Net 212 ml Output source:Urine Last wbc, hgb, hct plt Recent Labs 03/15/20 0040 WBC 7.4 HGB 9.8* HCT 29.1* Last 3 Lytes Recent Labs 03/15/20 0040 03/14/20 0040 03/13/20 0125 NA 129* 131* 132* K 4.9 5.2* 5.1* CL 93* 93* 96* CO2 25 25 24 BUN 25* 18 18 CREATININE 0.60* 0.62* 0.68* Last 3 LFTs Recent Labs 03/08/20 2200 02/09/20 0911 01/23/20 0853 11/21/19 0829 AST 35 18 37 40* ALT 43 75* 78* 33 ALKPHOS 54 37* 37* 37* BILITOT 0.4 0.5 0.7 0.5 BILIDIR -- -- -- 0.1 Last Ca, Mg, Phos Recent Labs 03/15/20 0040 CALCIUM 9.3 PHOS 3.1 Last 3 Coags Recent Labs 03/08/20 2200 PT 16.2* INR 1.4 PTT 29 MICRO Microbiology Results (Last 30 days) Procedure Component Value Units Date/Time Blood culture [[id number]] Collected: 03/11/202349 Lab Status: Preliminary result Specimen: Blood Updated: 03/15/20 07 Blood Culture No growth at 3 days. Blood culture [[id number]] Collected: 03/11/202349 Lab Status: Preliminary result Specimen: Blood Updated: 03/15/20 07 Blood Culture No growth at 3 days. Pneumocystis Carinii Stain Bronchial Alveolar Lavage [[id number]] (Abnormal) Collected: 03/09/201248 Lab Status: Final result Specimen: Bronchial Alveolar Lavage Updated: 03/09/202105 Pneumocystis Carinii Stain -- Fluorescent stain positive for: Pneumocystis jiroveci (carinii) Results called to and read back by DR. MEZA. Cystic Fibrosis Respiratory Culture Cystic Fibrosis Bronchoalveolar Lavage [[id number]] Collected: 03/09/201248 Lab Status: Final result Specimen: Cystic Fibrosis Bronchoalveolar Lavage Updated: 03/14/20 1226 Cystic Fibrosis Respiratory Culture No growth AFB culture Bronchial Alveolar Lavage [[id number]] Collected: 03/09/201248 Lab Status: Preliminary result Specimen: Bronchial Alveolar Lavage Updated: 03/13/20 1402 Acid Fast Bacilli Culture -- No Acid Fast Bacilli isolated to date If active tuberculosis is suspected, the patient should be on [employer]. Call Infection Prevention for assistance if needed. Acid Fast Stain No Acid Fast Bacilli seen Fungus Culture & Calc Stain Bronchial Alveolar Lavage [[id number]] Collected: 03/09/201248 Lab Status: Preliminary result Specimen: Bronchial Alveolar Lavage Updated: 03/12/20 1004 Fungus culture [[id number]] Collected: 03/09/201248 Lab Status: Preliminary result Specimen: Bronchial Alveolar Lavage Updated: 03/12/20 1004 Fungus Culture No Fungus isolated to date Calcofluor White Stain [[id number]] Collected: 03/09/201248 Lab Status: Final result Specimen: Bronchial Alveolar Lavage Updated: 03/09/20 214 Calcofluor Stain Calcofluor White Preparation: Negative COVID-19 PCR [[id number]] Collected: 03/09/20 1249 Lab Status: Final result Specimen: Other Updated: 03/10/20 1107 SARS-CoV-2 RNA Not Detected Comment: This result should be interpreted in combination with the clinical observations, patient history and epidemiological information. For testing of asymptomatic individuals, assay performance characteristics and clinical utility have not been evaluated. Testing for SARS-CoV-2 (Severe acute respiratory syndrome coronavirus 2, formerly known as 2019 novel coronavirus or 2019-nCoV) to aid in the diagnosis of COVID-19 is performed using the [employer] RealTime SARS-CoV-2 as authorized by the FDA Emergency Use Authorization (EUA). This EUA assay is intended for In-vitro Diagnostic (IVD) use with respiratory specimens such as nasopharyngeal swabs collected from individuals during the acute phase of infection. This assay is performed based on the instructions for use provided by the [employer] and additional guidance provided by CDC and FDA. Testing is performed in the [facility] within the Department of Pathology and Laboratory Medicine at [facility], certified under the Clinical Laboratory Improvement Amendments of 1988 (CLIA), 42 U.S.C. section 263a, to perform high complexity tests. Assay performance has been verified according to clinical laboratory regulatory requirements. Test results are provided above. A result of Not Detected indicates that the viral RNA target is not present but does not preclude SARS-CoV-2 infection. False negative results may occur if a specimen is improperly collected, transported or handled; if amplification inhibitors are present; or if inadequate numbers of viral particles are present in the specimen. A result of Detected suggests a current or recent infection and the patient is presumed to be infected. As required or requested by public health authorities, positive specimens may be sent for additional testing. Positive and negative predictive values for this test are highly dependent on disease prevalence. A result of Invalid indicates that neither the viral RNA targets nor the internal control target was detected. An invalid result suggests the presence of inhibitors. Recollection is recommended in the case of an invalid result. CDC COVID-19 criteria for testing on human specimens and clinical management guidance information are available at the CDC Coronavirus Disease 2019 (COVID-19) webpage under Information for Healthcare Professionals (https://www.cdc.gov/coronavirus/2019-ncov/hcp/index.html) Additional information about this and other EUA tests can be found in provider and patient fact sheets at the following FDA website: https://www.fda.gov/medical-devices/euesaeslb-zqngkybbkf-uzcdcju-devices/emergen uh-lsk-awkatrpqkbzdyx#qnhcm95zcm SARS-Cov-2 RNA Source Other Respiratory Panel PCR [[id number]] Collected: 03/08/202253 Lab Status: Final result Specimen: Nasopharyngeal Swab Updated: 03/09/20 1511 Resp Panel Source SOCIAL WORK LECTURER Swab Resp Panel PCR Negative Comment: Respiratory Panels are performed on the [employer], using multiplexed PCR nucleic acid detection. Negative results do not preclude respiratory infection and should not be used as the sole basis for diagnosis, treatment or other management decisions. Adenovirus Not Detected Coronavirus HKU1 Not Detected Coronavirus NL63 Not Detected Coronavirus 229E Not Detected Coronavirus OC43 Not Detected Human Metapneumovirus Not Detected Human Rhino/Enterovirus Not Detected Influenza A Not Detected Influenza B Not Detected Parainfluenza 1 Not Detected Parainfluenza 2 Not Detected Parainfluenza 3 Not Detected Parainfluenza 4 Not Detected Respiratory Syncytial Virus Not Detected Chlamydophila pneumoniae Not Detected Mycoplasma pneumoniae Not Detected Legionella Urinary Antigen [[id number]] Collected: 03/08/202253 Lab Status: Final result Specimen: Urine Updated: 03/09/20 1156 Legionella Urinary Antigen Negative Comment: A negative Legionella Urinary Antigen by [employer] suggests no recent or current infection with L. pneumophila Serogroup 1. Antigen may not be present in urine in early infection, and the level of antigen present in the urine may be below the detection limit of the test. Sensitivity: 95% Specificity 95%. COVID-19 PCR [[id number]] Collected: 03/08/20 2223 Lab Status: Final result Specimen: Nasopharyngeal Swab Updated: 03/09/20 0132 Rapid SARS-CoV-2 RNA Not Detected Comment: This result should be interpreted in combination with the clinical observations, patient history and epidemiological information. For testing of asymptomatic individuals, assay performance characteristics and clinical utility have not been evaluated. Testing for SARS-CoV-2 (Severe acute respiratory syndrome coronavirus 2, formerly known as 2019 novel coronavirus or 2019-nCoV) to aid in the diagnosis of COVID-19 is performed using the [employer] COVID-19 Direct Assay by [employer] as authorized by the FDA issued Emergency Use Authorization (EUA). This assay is intended for In-vitro Diagnostic (IVD) use with nasopharyngeal swabs collected from individuals meeting the CDC criteria for testing. The assay is performed based on the instructions for use and additional guidance provided by the FDA. Testing is performed in the Microbiology Laboratory within the Department of Pathology and Laboratory Medicine at [facility], certified under the Clinical Laboratory Improvement Amendments of 1988 (CLIA), 42 U.S.C. section 263a, to perform high complexity tests. Assay performance has been verified according to clinical laboratory regulatory requirements. Test results are provided above. A result of Not Detected indicates that the viral RNA target is not present but does not preclude SARS-CoV-2 infection. False negative results may occur if a specimen is improperly collected, transported or handled; if amplification inhibitors are present; or if inadequate numbers of viral particles are present in the specimen. A result of Detected suggests a current or recent infection and the patient is presumed to be infected. Positive and negative predictive values for this test are highly dependent on disease prevalence. A result of Invalid indicates the inability to conclusively determine the presence or absence of SARS-CoV-2 RNA in the sample which can be due to a variety of factors. Recollection is recommended in the case of an invalid result. CDC COVID-19 criteria for testing on human specimens and clinical management guidance information are available at the CDC Coronavirus Disease 2019 (COVID-19) webpage under Information for Healthcare Professionals (https://www.cdc.gov/coronavirus/2019-ncov/hcp/index.html). SARS-CoV-2 Source SOCIAL WORK LECTURER Swab Blood culture [[id number]] Collected: 03/08/202199 Lab Status: Final result Specimen: Blood Updated: 03/14/20700 Blood Culture No growth at 5 days. Blood culture [[id number]] Collected: 03/08/202199 Lab Status: Final result Specimen: Blood Updated: 03/14/20700 Blood Culture No growth at 5 days. Antimicrobials: Bactrim PO 15mg/kg/day EC/26, Sinus rhythm Imaging notable for: Results for orders placed or performed during the hospital encounter of 03/08/20 XR Abdomen 1 view (Generic) (Exam End: 03/09/2020 9:40 PM) Impression OG tube tip in the proximal stomach with sidehole at the distal esophagus. Thank you for letting us participate in the care of this patient. For questions regarding this report, please contact the number below. Electronically signed by: [facility] ([phone]), at 03/09/2020 9:43 PM XR Abdomen 1 view (Generic) (Exam End: 03/10/2020 1:28 AM) Impression OG tube terminates within the stomach, with sidehole past the GE junction. Thank you for letting us participate in the care of this patient. For questions regarding this report, please contact the number below. Chest One View (Exam End: 03/10/2020 4:03 AM) Impression Grossly unchanged multifocal pulmonary opacities that may represent any combination of pulmonary edema, ARDS, and/or atypical/multifocal pneumonia. I have personally reviewed the image(s) and the resident's interpretation and agree with the findings, Yanet Connell at 03/10/2020 4:25 AM Thank you for letting us participate in the care of this patient. For questions regarding this report, please contact the number below. Electronically signed by: [facility] ([phone]), at 03/10/2020 4:25 AM XR Chest One View (Exam End: 03/11/2020 11:43 PM) Impression No significant interval change in the multifocal pulmonary opacities. Thank you for letting us participate in the care of this patient. For questions regarding this report, please contact the number below. : Well developed, well-nourished, critically-ill man who appears documented age. Pleasant and conversational. Neuro: Alert, oriented x4. Follows commands and moves all extremities with equal strength. HEENT: Normocephalic, atraumatic. Mucous membranes moist. No scleral icterus. Neck: Supple, without evidence of JVD. CV: Regular rate and rhythm with no murmurs, rubs, or gallops. 2+ pitting edema to lower extremitiesbilaterally. Peripheral pulses 2+ bilaterally. Cap refill <2 seconds Pulm: Breathing unlabored at rest. Tachypnea and dyspnea with minimal exertion. Chest rise symmetrical. Bronchial breath sounds to right base and coarse crackles to bases bilaterally. Abd: Round, softly distended. Non-tender. Hypoactive bowel sounds. Skin: Warm, dry, and intact. No rash, lesion, or erythema. Assessment:Jeison Cervantes is a 64 y.o. male with PMH necrotizing myositis (s/p IVIG, methotrexate,prednisone, cellcept,) DVT (on xarelto,) spinal stenosis, who is admitted to [facility] with hypoxemic respiratory failure requiring HFNC secondary to PJP infection. Course complicated by new abdominal distention and nausea in the setting of constipation concerning for ileus and persistent hyponatremiadespite liberalization of diet yesterday and adequate glycemic control. Plan: NEURO/MSK: Hx autoimmune necrotizing myopathy, spinal stenosis L3-L4 -Rheumatology following, appreciate recommendations -Continue to hold home immunosuppressants with plan to restart cellcept and methotrexate after completion of PJP treatment (03/30) as discussed with Rheum fellow. No plan to restart home steroid dosing as pt had been on planned outpatient taper with hopes to receive steroid injection for spinal stenosis -Dilaudid 0.5mg every 4 hours PRN pain -Tylenol 650mg every 6 hours PRN pain -PT/OT consulted PULM: Hypoxemic respiratory failure requiring HFNC and CPAP in the setting of PJP pneumonia -Titrate FiO2 to maintain SpO2 >89% -Continue Bactrim PO (15mg/kg) -Continue prednisone taper (40 mg daily until 03/19, then 20 mg daily x11 days, to end 03/30) -Plan to attempt HFNC overnight tonight, with low-threshold to return to CPAP use for HFNC FiO2 requirements >90% CARD/VASC:MARISELA -Continuous telemetry monitoring GI/NUTRITION: Constipation, abdominal distension. Critical Illness Nutrition -Obtain KUB this morning -Add zofran 4mg PRN for nausea (aggressive treatment of nausea to prevent aspiration event) -D/C protonix (no longer indicated with once-daily dosing of steroids) -Regular diet -Bowel regimen: senna-colace 2 tabs, BID, add miralax daily, and bisacodyl suppository PRN RENAL/FEN/: Hyponatremia of unknown etiology. Pt appears grossly euvolemic. Hx BPH -Send urine lytes and osm to evaluate etiology of hyponatremia -Continue home finasteride 5mg and tamulosin 0.4mg daily -Daily BMP, mag, phos -Goal fluid balance even to net negative 1L ID:PJP pneumonia -Continue Bactrim (15mg/kg/day) x 21 days, will complete 03/29 ENDO: Glycemic control while on steroids -Overnight received glargine 10U with adequate coverage (no sliding scale requirements) -Plan to decrease glargine to 5U tonight with moderative ISS as steroids have been tapered -Steroids as above HEME: Hx DVT -Continue home Xarelto 20mg daily PROPHY: -Xarelto and SCDs to bilateral lower extremities for DVT prophylaxis -GI prophylaxis no longer indicated -PT/OT:Ordered LINES/TUBES: -PIV -Dubois--> discontinue today PSYCHO-SOCIAL: -Decision making:Patient -Code status:Full Code Disposition: Pt to remain in the ICU Patient seen and examined with Dr. Arianne Barboza APRN #[id number] Critical Care Blue Team [id number] Pavan Acuña MD - 03/15/2020 7:34 AM EDT MICU STAFF PROGRESS NOTE Critical Care Medicine Author: PAVAN ACUÑA Patient seen and examined on critical care rounds. Interval Events: Afebrile again over the past 24 hours. Net even fluid balance for 24 hours. High flow weaned to 65% yesterday, CPAP with FiO2 weaned to 50% overnight. Given 10U of glargine for elevated finger sticks, glucose better controlled overnight. Has not had a bowel movement. Active problems: ?? Acute hypoxemic respiratory failure ?? Pneumocystis jiroveci pneumonia ?? Autoimmune necrotizing myopathy ?? DVT on Xarelto ?? Hyperglycemia secondary to steroids Exam: Last value Range last 24 hrs Temperature Temp: 37.4 ??C (99.3 ??F) Temp: [36.7 ??C (98.1 ??F)-37.4 ??C (99.3 ??F)] Heart Rate Heart Rate: 80 Heart Rate: [69-102] Blood Pressure BP: 120/61 BP: (108-120)/(61-74) Respiratory Rate Resp: 25 Resp: [14-29] SpO2 SpO2: 96 % SpO2: [79 %-96 %] Art BP BP (Arterial Line): -- Ventilator: HFNC 45L and 55% Current Drips: None Awake and alert, more tachypneic this morning Mildly increased work of breathing Lungs clear anteriorly, rare crackles at the bases laterally Heart regular, S1 S2 + 0 Abdomen more distended, firm, absent bowel sounds 1+ extremity edema Labs/studies: WBC 7.4 Hg 9.8 plt 266 Na 129 K 4.9 Cl 93 CO2 25 BUN 25 Creat 0.60 Glucose mostly 140-180, as high as 240 ASSESSMENT, MANAGEMENT, and DECISION MAKIN64 y/o man with 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 He has since been admitted with acute hypoxic respiratory failure and ARDS from PJP pneumonia. Since extubation, he has had marginal oxygenation requiring high flow and CPAP. His oxygen requirements have been improving, although he looks more tachypneic and uncomfortable today. This may be in part due to his increased abdominal distention and lack of bowel movements. His sodium is coming down a bit as well, which may be due to SIADH now that we have reduced his free water intake from the bactrim. He may also be a little volume overloaded. Plan: ?? Wean FiO2 as tolerated ?? Increase bowel regimen, check AXR ?? Continue bactrim po and steroids ?? Discuss immunosuppression plan with rheumatology for his myositis ?? Negative fluid balance ?? Check urine lytes ?? Continue low dose glargine ?? BPH meds ?? PT/OT ?? SSI and NPH ?? Continue xarelto IS PATIENT CRITICALLY ILL ? Is there a high potential of sudden, clinically significant, or life threatening deterioration? Yes Is there a need for direct personal assessment and management to treat/prevent multiple vital organfailure/deterioration? Yes If this patient is not critically ill, I certify the patient requires continued in-patient hospitalization for [ ] PATIENT IS CRITICALLY ILL WITH THESE DIAGNOSES BEING MANAGED BY [facility] TEAM: ARDs Pneumonia Bacterial: Specify suspected or known bacteria: PJP Respiratory Failure Acute with hypoxia I personally performed 30 minutes of aggregate critical care time exclusive of procedures and teaching. This includes time spent during direct patient evaluation and reassessment, interpreting diagnostic tests, directing life and/or organ supporting interventions and documentation on the unit. PAVAN ACUÑA Otilio Otero RCP - 03/15/2020 4:29 AM EDT Respiratory Therapy NIV Note NIV Mode: CPAP IPAP (cmH20): (S) 10 EPAP (cmH20): 10 FiO2 (%): 60 % Resp: 25 Mve: 27.1 Leak (L/min): 57 L/min Vte: 977 SpO2: 96 % Laboratory: Lab Results Component Value Date/Time PHART 7.54 (H) 03/12/2020 04:04 AM [id number] 27 (L) 03/12/2020 04:04 AM PO2ART 64 (L) 03/12/2020 04:04 AM [id number] 23.0 03/12/2020 04:04 AM BEART 0.4 03/12/2020 04:04 AM Skin Assessment: NIV Skin Assessment WDL: WDL Mepilex Applied: Yes Nares Assessment WDL: WDL Breath Sounds: diminished Assessment: Received patient on HFNC, 45L FiO2-75%, patient resting comfortably and transitioned to CPAP of 10 with FiO2 of 60%, titrated to 50% at 0400, SpO2-94% Plan: Continue to titrate FiO2 as tolerated. SABRA AlonsoP Jill Victoria RT - 03/14/2020 5:49 PM Maldonado Snell HPI: presented to OSH sudden onset SOB felt like his diaphragm was weak and couldn't take a whole breath in. nausea, anorexia and myalgias. Acute hypoxic respF, multifocal pneumocystis PJP PNA. INT 03/09 for a bronch (had been on HFNC) BAL Past Med. Hx: Varicose veins, autoimmune necrotizing myopathy, severe spinal stenosis, DVT Pulm Hx/ Home O2/NIV/RX: former smoker Respiratory Data Oxygen Settings: High flow nasal cannula 45 L/min 65 %' V60 - NIV Mode: CPAP IPAP (cmH20): (S) 10 EPAP (cmH20): 10 FiO2 (%): 60 % Inhaled Medications: None Events Patient received on HHF-NC 50L/min 85% O2. Patient has been titrated as tolerated. He worked with PT/OT today and tolerated this well. We will continue to titrate as tolerated. Israel Booth RD - 03/14/2020 5:18 PM EDT Nutrition Progress Note Jeison Cervantes is a 64 y.o. male with autoimmune necrotizing myopathy (currently on MTX, cellcept??and steroids), severe spinal stenosis of L3-L4, DVT (on xarelto)??who presents in transfer to MICU from [facility] with acute hypoxemic respiratory failure. ?? Hospital Problem List: Acute hypoxemic respiratory failure Steroid induced hyperglycemia Deep Vein Thrombosis Necrotizing myopathy PJP Pneumonia Reason for intervention: Diet Advanced Nutrition Recommendations: Regular diet as ordered. Encourage good po intake Added high protein snacks - hard boiled egg, Boost Plus, nuts per pt preference. Active Orders Diet Regular diet Frequency: Effective Now Number of Occurrences: Until Specified Lab Results Component Value Date NA 131 (L) 03/14/2020 K 5.2 (H) 03/14/2020 CL 93 (L) 03/14/2020 CO2 25 03/14/2020 BUN 18 03/14/2020 CREATININE 0.62 (L) 03/14/2020 GFRAA 122 03/14/2020 ESTGFR 105 03/14/2020 MAGNESIUM 0.79 03/08/2020 CALCIUM 9.3 03/14/2020 PHOS 3.0 03/08/2020 AST 35 03/08/2020 ALT 43 03/08/2020 ALKPHOS 54 03/08/2020 BILITOT 0.4 03/08/2020 BILIDIR 0.1 11/21/2019 CRP 1.8 01/23/2020 HA1C 8.8 (H) 03/08/2020 IRON 54 03/08/2020 Lab Results Component Value Date POCGLU 301 (H) 03/14/2020 POCGLU 166 03/14/2020 POCGLU 175 03/14/2020 POCGLU 247 (H) 03/14/2020 POCGLU 185 03/14/2020 POCGLU 142 03/13/2020 Skin Status: Shift Pressure Injury Prevention Occiput: No Injury Thoracic Spine: No Injury Sacral: No Injury Ischial - left: No Injury Ischial - right: No Injury Heel - left: No Injury Heel - right: No Injury Elbow - left: No Injury Elbow - right: No Injury Device Sites: O2 sat monitor, oxygen tubing, high flow nasal cannula strap, IV sites, dubois, ECG Leads, BP Cuff Other Sites: IDB Relevant medications: folic acid, insulin, potassium replacement protocol, prednisone, Bactrim DS, bowel meds, others noted Last Bowel Movement: 03/07/20 Admit Weight: 103.6 kg Estimated body mass index is 33.37 kg/m?? as calculated from the following: Height as of this encounter: 177.8 cm (5' 10). Weight as of this encounter: 105.5 kg (232 lb 9.4 oz). [place] Body Weight: 75.5 kg Usual Body Weight: per pt 3 yrs ago consistent at ~235 lbs; gained wt up to 257 lbs due to steroids,then when meds were changed ~November, lost 37 lbs over 3 months Wt Readings from Last 10 Encounters: 03/13/20 105.5 kg (232 lb 9.4 oz) 02/09/20 102.1 kg (225 lb) 02/07/20 102.5 kg (226 lb) 01/23/20 104.3 kg (230 lb) 11/25/19 114.8 kg (253 lb) 11/21/19 114.3 kg (252 lb) 09/15/19 111.1 kg (245 lb) 08/15/19 109.8 kg (242 lb) 05/11/19 113.4 kg (250 lb) 03/29/19 114.3 kg (252 lb) Assessment: Estimated needs: Calories: 2100 (20 kcal/kg) Protein: 125 grams (1.2g/kg) Nutrition Focused Physical Exam (NFPE): Not performed - attempted but unable to discern due to autoimmune necrotizing myopathy. Nutrition intake and intake history/Interview: patient seen along with his . He states his appetite is great today. For lunch he ate grilled cheese sand, fruit, cottage cheese, milk and cookie. He states that over the past 1.5 weeks prior to admission his appetite dropped and was not eating much food. Prior to that his appetite was good, eating 3 meals/day and trying to concentrate on increasing calorie and protein intake to help with muscle loss. He states he lost 37 lbs over 3 months due a change in his medications. After that he described going downhill in terms of his necrotizing myopathy, losing muscle mass and strength first in his legs and then progressed up to his arms. He has not noticed changes in the way his face looks but describes a dramatic decrease in the muscles of arms, legs, hips and losing his butt - his pants didn't fit anymore and needed suspenders. Nutrition since hospitalization he had 6 days with minimal nutrition. 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 03/08 - 03/09 - NPO 03/10 - tube feedings started 03/10- - received only 182 ml of tube feedings 03/13 - diet advanced to clear liquids 03/14 - diet advanced to regular diet - eating very well. 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 Pt has experienced significant wt loss over 3 months but unable to saythat it was related to nutrition due to autoimmune necrotizing myopathy (Kalpesh et al, JPEN J Parenteral Enteral Nutr. 2011; 36(3): 273-83) Nutrition to continue to follow up while inpatient [address] Pager #:[phone] Charisse Crandall RN - 03/14/2020 12:07 PM EDTOUTCOME EVALUATION NOTE: OUTCOME SUMMARY: No acute events. Tolerated PT very well (stood at bedside approx 30 seconds, in bedchair most of afternoon). at bedside during shift. Hyperglycemic (team aware) requiring rechecks multiple times (see MAR for details). New LUE swelling noticed end of shift, assessed by blue team, vascular paged to come assess. Neuro- AxOx4, pleasant/cooperative. Denies pain. Afebrile. Cardiac- NSR on monitor. BP WNL. Respiratory- On HFNC, Sat goal >89% maintained. Some RAYGOZA but recovered quickly. GI/- Diet progressed to regular, tolerating very well. Bowel med regimen increased. UOP WNL. IV Drips: None (Bactrim changed to PO) PLAN MOVING FORWARD: Continue to wean O2 as tolerated, increase activity + PO intake. INDIVIDUALIZED FALL PREVENTION INTERVENTIONS: Patient-specific fall risk factors per assessment: [current deficits]: Lines, drains, cords and generalized weakness. Assistance [level of assistance required for transfers and ambulation]: 2 assist Supervision [direct monitoring required during toileting and ADLs]: Alarms active, audible and set appropriately. Purposeful rounding, frequent visual assessments. Surveillance [continuous indirect monitoring]: [place] [facility] GOAL OUTCOME EVALUATION: Jie Barboza APRN - 03/14/2020 10:30 AM EDT Jie Barboza APRN CRITICAL CARE PROGRESS NOTE Jeison Cervantes [id number] Admitted:03/08/2020 9:32 PM ICU day: 5 Critical Care Diagnosis: Jeison Cervantes is a 64 y.o. male with PMH autoimmune necrotizing myopathy(treated with methotrexate, cellcept,??and chronic steroids), severe spinal stenosis of L3-L4, DVT (on xarelto)??who is admitted to [facility] for hypoxemic respiratory failure secondary to PJP pneumonia Hospital course has been significant for: -Hypoxemic respiratory failure secondary to PJP pneumonia: Pt initially presented to [facility] for shortness of breath, fever, and myalgias. He was ruled-out for COVID. CT chest concerning for GGOs predominantly in mid-upper lung zones and pt was notably not given PJP prophylaxis while immunosuppressed. The patient was intubated and bronchoscopy was performed on 03/09, and BAL revealed PJP pneumonia. The patient was subsequently extubated 03/11, but has continued to require high-flow NC and CPAP with high FiO2 requirements (60-100%) to maintain SpO2 >90%. He was started on Bactrim IV 15mg/kg/day on 03/08, transitioned to PO 03/14 24-hour events: -No acute events overnight -Continues to require HFNC and CPAP 60-90% FiO2 -TMax 37.7 overnight Subjective: I slept well last night. Data: VITALS Temp: [36.8 ??C (98.2 ??F)-37.7 ??C (99.9 ??F)] Heart Rate: [66-81] Resp: [14-32] BP: (107-121)/(61-70) SpO2: [91 %-96 %] Heart Rate from SpO2: [66 bpm-78 bpm] VENT SETTINGS Recent Labs 03/12/20 0404 PHART 7.54* [id number] 27* PO2ART 64* [id number] 23.0 Intake/Output Summary (Last 24 hours) at 03/14/2020 0710 Last data filed at 03/14/2020 0600 Gross per 24 hour Intake 2152 ml Output 4485 ml Net -2333 ml Output source:Urine Last wbc, hgb, hct plt Recent Labs 03/14/20 0040 WBC 9.8* HGB 11.0* HCT 32.1* Last 3 Lytes Recent Labs 03/14/20 0040 03/13/20 0125 03/12/20 0045 NA 131* 132* 132* K 5.2* 5.1* 4.6 CL 93* 96* 96* CO2 25 24 23 BUN 18 18 19 CREATININE 0.62* 0.68* 0.74* Last 3 LFTs Recent Labs 03/08/20 2200 02/09/20 0911 01/23/20 0853 11/21/19 0829 AST 35 18 37 40* ALT 43 75* 78* 33 ALKPHOS 54 37* 37* 37* BILITOT 0.4 0.5 0.7 0.5 BILIDIR -- -- -- 0.1 Last Ca, Mg, Phos Recent Labs 03/14/20 0040 03/08/20 220 CALCIUM 9.3 < > 9.6 PHOS -- -- 3.0 < > = values in this interval not displayed. Last 3 Coags Recent Labs 03/08/202199 PT 16.2* INR 1.4 PTT 29 MICRO Microbiology Results (Last 30 days) Procedure Component Value Units Date/Time Blood culture [[id number]] Collected: 06/28/20 2350 Lab Status: Preliminary result Specimen: Blood Updated: 03/14/20 0701 Blood Culture No growth at 2 days. Blood culture [[id number]] Collected: 03/11/20 2350 Lab Status: Preliminary result Specimen: Blood Updated: 03/14/20 0701 Blood Culture No growth at 2 days. Pneumocystis Carinii Stain Bronchial Alveolar Lavage [[id number]] (Abnormal) Collected: 03/09/201248 Lab Status: Final result Specimen: Bronchial Alveolar Lavage Updated: 03/09/20 2106 Pneumocystis Carinii Stain -- Fluorescent stain positive for: Pneumocystis jiroveci (carinii) Results called to and read back by DR. MEZA. Cystic Fibrosis Respiratory Culture Cystic Fibrosis Bronchoalveolar Lavage [[id number]] Collected: 03/09/201248 Lab Status: Preliminary result Specimen: Cystic Fibrosis Bronchoalveolar Lavage Updated: 03/11/20 1314 Cystic Fibrosis Respiratory Culture No growth to date. AFB culture Bronchial Alveolar Lavage [[id number]] Collected: 03/09/201248 Lab Status: Preliminary result Specimen: Bronchial Alveolar Lavage Updated: 03/13/20 1402 Acid Fast Bacilli Culture -- No Acid Fast Bacilli isolated to date If active tuberculosis is suspected, the patient should be on [employer]. Call Infection Prevention for assistance if needed. Acid Fast Stain No Acid Fast Bacilli seen Fungus Culture & Calc Stain Bronchial Alveolar Lavage [[id number]] Collected: 03/09/201248 Lab Status: Preliminary result Specimen: Bronchial Alveolar Lavage Updated: 03/12/20 1004 Fungus culture [[id number]] Collected: 03/09/201248 Lab Status: Preliminary result Specimen: Bronchial Alveolar Lavage Updated: 03/12/20 1004 Fungus Culture No Fungus isolated to date Calcofluor White Stain [[id number]] Collected: 03/09/201248 Lab Status: Final result Specimen: Bronchial Alveolar Lavage Updated: 03/09/20 2144 Calcofluor Stain Calcofluor White Preparation: Negative COVID-19 PCR [[id number]] Collected: 03/09/201248 Lab Status: Final result Specimen: Other Updated: 03/10/20 1107 SARS-CoV-2 RNA Not Detected Comment: This result should be interpreted in combination with the clinical observations, patient history and epidemiological information. For testing of asymptomatic individuals, assay performance characteristics and clinical utility have not been evaluated. Testing for SARS-CoV-2 (Severe acute respiratory syndrome coronavirus 2, formerly known as 2019 novel coronavirus or 2019-nCoV) to aid in the diagnosis of COVID-19 is performed using the [employer] RealTime SARS-CoV-2 as authorized by the FDA Emergency Use Authorization (EUA). This EUA assay is intended for In-vitro Diagnostic (IVD) use with respiratory specimens such as nasopharyngeal swabs collected from individuals during the acute phase of infection. This assay is performed based on the instructions for use provided by the [employer] and additional guidance provided by CDC and FDA. Testing is performed in the [facility] within the Department of Pathology and Laboratory Medicine at [facility], certified under the Clinical Laboratory Improvement Amendments of 1988 (CLIA), 42 U.S.C. section 263a, to perform high complexity tests. Assay performance has been verified according to clinical laboratory regulatory requirements. Test results are provided above. A result of Not Detected indicates that the viral RNA target is not present but does not preclude SARS-CoV-2 infection. False negative results may occur if a specimen is improperly collected, transported or handled; if amplification inhibitors are present; or if inadequate numbers of viral particles are present in the specimen. A result of Detected suggests a current or recent infection and the patient is presumed to be infected. As required or requested by public health authorities, positive specimens may be sent for additional testing. Positive and negative predictive values for this test are highly dependent on disease prevalence. A result of Invalid indicates that neither the viral RNA targets nor the internal control target was detected. An invalid result suggests the presence of inhibitors. Recollection is recommended in the case of an invalid result. CDC COVID-19 criteria for testing on human specimens and clinical management guidance information are available at the CDC Coronavirus Disease 2019 (COVID-19) webpage under Information for Healthcare Professionals (https://www.cdc.gov/coronavirus/2019-ncov/hcp/index.html) Additional information about this and other EUA tests can be found in provider and patient fact sheets at the following FDA website: https://www.fda.gov/medical-devices/dyqkswyph-kaxbmtwzst-tooiqpk-devices/emergen ji-oqb-zjtqzuwkzcgdiw#vmvvi72yjw SARS-Cov-2 RNA Source Other Respiratory Panel PCR [[id number]] Collected: 03/08/202253 Lab Status: Final result Specimen: Nasopharyngeal Swab Updated: 03/09/20 1511 Resp Panel Source SOCIAL WORK LECTURER Swab Resp Panel PCR Negative Comment: Respiratory Panels are performed on the [place], using multiplexed PCR nucleic acid detection. Negative results do not preclude respiratory infection and should not be used as the sole basis for diagnosis, treatment or other management decisions. Adenovirus Not Detected Coronavirus HKU1 Not Detected Coronavirus NL63 Not Detected Coronavirus 229E Not Detected Coronavirus OC43 Not Detected Human Metapneumovirus Not Detected Human Rhino/Enterovirus Not Detected Influenza A Not Detected Influenza B Not Detected Parainfluenza 1 Not Detected Parainfluenza 2 Not Detected Parainfluenza 3 Not Detected Parainfluenza 4 Not Detected Respiratory Syncytial Virus Not Detected Chlamydophila pneumoniae Not Detected Mycoplasma pneumoniae Not Detected Legionella Urinary Antigen [[id number]] Collected: 03/08/202253 Lab Status: Final result Specimen: Urine Updated: 03/09/20 1156 Legionella Urinary Antigen Negative Comment: A negative Legionella Urinary Antigen by EIA suggests no recent or current infection with L. pneumophila Serogroup 1. Antigen may not be present in urine in early infection, and the level of antigen present in the urine may be below the detection limit of the test. Sensitivity: 95% Specificity 95%. COVID-19 PCR [[id number]] Collected: 03/08/203 Lab Status: Final result Specimen: Nasopharyngeal Swab Updated: 03/09/20 0132 Rapid SARS-CoV-2 RNA Not Detected Comment: This result should be interpreted in combination with the clinical observations, patient history and epidemiological information. For testing of asymptomatic individuals, assay performance characteristics and clinical utility have not been evaluated. Testing for SARS-CoV-2 (Severe acute respiratory syndrome coronavirus 2, formerly known as 2019 novel coronavirus or 2019-nCoV) to aid in the diagnosis of COVID-19 is performed using the Electro-LuminXa COVID-19 Direct Assay by [employer]PATH as authorized by the FDA issued Emergency Use Authorization (EUA). This assay is intended for In-vitro Diagnostic (IVD) use with nasopharyngeal swabs collected from individuals meeting the CDC criteria for testing. The assay is performed based on the instructions for use and additional guidance provided by the FDA. Testing is performed in the Microbiology Laboratory within the Department of Pathology and Laboratory Medicine at [facility], certified under the Clinical Laboratory Improvement Amendments of 1988 (CLIA), 42 U.S.C. section 263a, to perform high complexity tests. Assay performance has been verified according to clinical laboratory regulatory requirements. Test results are provided above. A result of Not Detected indicates that the viral RNA target is not present but does not preclude SARS-CoV-2 infection. False negative results may occur if a specimen is improperly collected, transported or handled; if amplification inhibitors are present; or if inadequate numbers of viral particles are present in the specimen. A result of Detected suggests a current or recent infection and the patient is presumed to be infected. Positive and negative predictive values for this test are highly dependent on disease prevalence. A result of Invalid indicates the inability to conclusively determine the presence or absence of SARS-CoV-2 RNA in the sample which can be due to a variety of factors. Recollection is recommended in the case of an invalid result. CDC COVID-19 criteria for testing on human specimens and clinical management guidance information are available at the CDC Coronavirus Disease 2019 (COVID-19) webpage under Information for Healthcare Professionals (https://www.cdc.gov/coronavirus/2019-ncov/hcp/index.html). SARS-CoV-2 Source [employer]ER Swab Blood culture [[id number]] Collected: 03/08/202199 Lab Status: Final result Specimen: Blood Updated: 03/14/20 07 Blood Culture No growth at 5 days. Blood culture [[id number]] Collected: 03/08/202199 Lab Status: Final result Specimen: Blood Updated: 03/14/20700 Blood Culture No growth at 5 days. Antimicrobials: Bactrim 15mg/kg/day EC/26, Sinus rhythm Imaging notable for: Results for orders placed or performed during the hospital encounter of 03/08/20 XR Abdomen 1 view (Generic) (Exam End: 03/09/2020 9:40 PM) Impression OG tube tip in the proximal stomach with sidehole at the distal esophagus. Thank you for letting us participate in the care of this patient. For questions regarding this report, please contact the number below. Abdomen 1 view (Generic) (Exam End: 03/10/2020 1:28 AM) Impression OG tube terminates within the stomach, with sidehole past the GE junction. Thank you for letting us participate in the care of this patient. For questions regarding this report, please contact the number below. Chest One View (Exam End: 03/10/2020 4:03 AM) Impression Grossly unchanged multifocal pulmonary opacities that may represent any combination of pulmonary edema, ARDS, and/or atypical/multifocal pneumonia. I have personally reviewed the image(s) and the resident's interpretation and agree with the findings, Yanet Connell at 03/10/2020 4:25 AM Thank you for letting us participate in the care of this patient. For questions regarding this report, please contact the number below. Electronically signed by: [facility] ([phone]), at 03/10/2020 4:25 AM XR Chest One View (Exam End: 03/11/2020 11:43 PM) Impression No significant interval change in the multifocal pulmonary opacities. Thank you for letting us participate in the care of this patient. For questions regarding this report, please contact the number below. : Well developed, well-nourished, critically-ill man who appears documented age. Pleasant and conversational. Neuro: Alert, oriented x4. Follows commands and moves all extremities with equal strength. HEENT: Normocephalic, atraumatic. Mucous membranes moist. No scleral icterus. Neck: Supple, without evidence of JVD. CV: Regular rate and rhythm with no murmurs, rubs, or gallops. 2+ pitting edema to lower extremitiesbilaterally. Peripheral pulses 2+ bilaterally. Cap refill <2 seconds Pulm: Breathing unlabored at rest. Chest rise symmetrical. Coarse crackles to bases bilaterally. Abd: Round, soft, non-distended, and non-tender. Active bowel sounds present throughout. Skin: Warm, dry, and intact. No rash, lesion, or erythema. Assessment:Jeison Cervantes is a 64 y.o. male with PMH necrotizing myositis (s/p IVIG, methotrexate,prednisone, cellcept,) DVT (on xarelto,) spinal stenosis, who is admitted to [facility] with hypoxemic respiratory failure requiring HFNC secondary to PJP infection Plan: NEURO:No active issues -Continue folate 1mg PO MSK: Hx autoimmune necrotizing myopathy, spinal stenosis L3-L4 -Rheumatology following, appreciate recommendations -Continue to hold home immunosuppressants (recheck CK tomorrow) -Dilaudid 0.5mg every 4 hours PRN pain -Tylenol 650mg every 6 hours PRN pain -PT/OT consulted PULM: Hypoxemic respiratory failure requiring HFNC and CPAP in the setting of PJP pneumonia -Titrate FiO2 to maintain SpO2 >90% -Bactrim 15mg/kg/day IV, will transition to PO today -Prednisone taper 40 mg qd x5 days starting today, then 20 mg qd x11 days -Discuss with rheum timing of re-starting home immunosuppressant regimen CARD/VASC:MARISELA\ -Continuous telemetry monitoring GI/NUTRITION: Critical illness nutrition -Protonix 40mg daily while on steroids -Liberalize diet to regular diet -Increase bowel regimen (senna-colace 2 tabs, BID) RENAL/FEN/: Mild hyponatremia, mild hyperkalemia likely 2/2 bactrim. Hx BPH -Continue home finasteride 5mg and tamulosin 0.4mg daily -Daily BMP, mag, phos ID:PJP pneumonia -Continue Bactrim, transition to oral dosing (15mg/kg/day) -Aspergillus <0.5 -Pending [id number] ENDO: Glycemic control while on steroids -Increased to moderate sliding scale insulin -Change BID NPH 5 units to daily dosing with decreased steroid dosing -Steroids as above HEME: Hx DVT -Continue home Xarelto 20mg daily PROPHY: -Home Xarelto and SCDs to bilateral lower extremities for DVT prophylaxis -Protonix daily for GI prophylaxis (discontinue when transitioned to home prednisone dosing) -PT/OT:Ordered LINES/TUBES: -PIV PSYCHO-SOCIAL: -Decision making:Patient -Code status:Full Code Disposition: Pt to remain in the ICU Patient seen and examined with Dr. Arianne Barboza, DIRECTOR [facility] #[id number] Critical Care Blue Team Debora Khalil RN - 03/14/2020 7:57 AM EDTChart reviewed; Pt remains in MICU DX: acute hypoxic respiratory failure and ARDS from PJP pneumonia Extubated 03/13 HFNC at 50L/100% CPAP/BiPAP at night and prn during day a/o able to self-direct intermittent fever max 39 continue Bactrim and steroids PT/OT???pt has limited resp reserve not working w/him yet Prior Function: Pt states up to a week ago he was amb with a cane and driving he could not go long distances but household Patient is insured through [facility] Plan: refer to Home Care Monitor for possible cpap/bipap need at d/c Barriers: none at this time CM spoke to pt/ in room. Sitting up in be with HFNC in place. Able to answer all questions but becomes sob and needs time to catch breath. also helps with answers. They both want him to get stronger and out of hospital. AD is in chart and current per pt 03/15 VM from [facility] stating she can assist with finding par providers for pt on d/c for rehabif needed. Call [phone] x [phone] OC RNCM will continue to monitor patient's progress with the medical plan of care and to support the patient/family during care transition. FREDDIE Mo Pgr: [id number] Pavan Salomon MD - 03/14/2020 7:40 AM EDT MICU STAFF PROGRESS NOTE Critical Care Medicine Author: PVAAN ACUÑA Patient seen and examined on critical care rounds. Interval Events: Rested with CPAP overnight, FiO2 weaned to 60%. High flow down to 80% this morning. Afebrile for the past 24 hours. Negative 2.3L over the past 24 hours. Active problems: ?? Acute hypoxemic respiratory failure ?? Pneumocystis jiroveci pneumonia ?? Autoimmune necrotizing myopathy ?? DVT on Xarelto ?? Hyperglycemia secondary to steroids Exam: Last value Range last 24 hrs Temperature Temp: 36.8 ??C (98.2 ??F) Temp: [36.8 ??C (98.2 ??F)-37.7 ??C (99.9 ??F)] Heart Rate Heart Rate: 66 Heart Rate: [66-81] Blood Pressure BP: 109/70 BP: (107-121)/(61-70) Respiratory Rate Resp: 24 Resp: [14-32] SpO2 SpO2: 92 % SpO2: [91 %-96 %] Art BP BP (Arterial Line): -- Ventilator: HFNC 45L and 80% Current Drips: None Awake and alert, very comfortable appearing, answers appropriately No significant work of breathing, not tachypneic Lungs clear anteriorly, rare crackles at the bases laterally Heart regular, S1 S2 + 0 Abdomen soft, non-tender Trace extremity edema Labs/studies: WBC 9.8 Hg 11.0 plt 232 Na 131 K 5.2 Cl 93 CO2 25 BUN 18 Creat 0.62 Glucose mostly 140-180, as high as 240 ASSESSMENT, MANAGEMENT, and DECISION MAKIN64 y/o man with 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 He has since been admitted with acute hypoxic respiratory failure and ARDS from PJP pneumonia. Since extubation, he has had marginal oxygenation requiring high flow and CPAP. Today, his oxygen requirement is finally beginning to come down and he appears more comfortable. This will allow us to advance his diet and change his bactrim to po. His IV bactrim mixed in D5 is contributing to his hyponatremia and hyperglycemia. He continues to autodiurese which may also help his respiratory status. Plan: ?? High flow and CPAP as needed, wean FiO2 as tolerated ?? Bactrim and steroids for PCP ?? change bactrim to po ?? Advance diet ?? Bowel regimen ?? Hold immunosuppressives other than pred ?? Will need to restart other meds for myositis as prednisone is weaned ?? Follow urine output and creatinine ?? Follow finger sticks after stopping IV Continue PPI prophylaxis ?? BPH meds ?? PT/OT ?? SSI and NPH ?? Continue xarelto IS PATIENT CRITICALLY ILL ? Is there a high potential of sudden, clinically significant, or life threatening deterioration? Yes Is there a need for direct personal assessment and management to treat/prevent multiple vital organfailure/deterioration? Yes If this patient is not critically ill, I certify the patient requires continued in-patient hospitalization for [ ] PATIENT IS CRITICALLY ILL WITH THESE DIAGNOSES BEING MANAGED BY [facility] TEAM: ARDs Pneumonia Bacterial: Specify suspected or known bacteria: PJP Respiratory Failure Acute with hypoxia I personally performed 35 minutes of aggregate critical care time exclusive of procedures and teaching. This includes time spent during direct patient evaluation and reassessment, interpreting diagnostic tests, directing life and/or organ supporting interventions and documentation on the unit. PAVAN ACUÑA Cassius Couch RCP - 03/13/2020 9:23 PM EDTRespiratory Therapy NIV Note NIV Settings: NIV Mode: CPAP IPAP (cmH20): (S) 10 EPAP (cmH20): 10 FiO2 (%): (S) 70 %(SpO2 95%) NIV Measurements: Resp: 21 Mve: 24.8 Leak (L/min): 26 L/min Vte: 740 SpO2: 91 % Skin Assessment: NIV Skin Assessment WDL: WDL Mepilex Applied: Yes Nares Assessment WDL: WDL Assessment: Assumed care of pt. On HFNC 50L 85%. Pt. Transitioned to CPAP early in the evening. CPAP10 FiO2 70%. Pt. Rested on CPAP without complication overnight and FiO2 titrated based on Spo2. Plan: Continue to support pt. With HFNC and BIPAP, wean settings as tolerated. SABRA BraunP Alley Frye RCP - 03/13/2020 2:51 PM EDTRespiratory Therapy Heated Humidified High Flow INDICATIONS: High O2 requirement HIGH FLOW SETTINGS: Interface: CPAP Flow: 50 L/min FiO2: 80 % VITAL SIGNS: HR: 73 RR: 20 SpO2: 96 % SKIN ASSESSMENT: NIV Skin Assessment WDL: WDL Mepilex Applied: Yes Nares Assessment WDL: WDL BREATH SOUNDS: Diminished/ Clear ASSESSMENT: I received Jeison this morning on HFNC at 50L/100% resting comfortably. The plan for the day is to continue to go between CPAP and HF throughout the day. He has been tolerating it well and is to wear the CPAP overnight. Alley Galeas, SABRAP Pavan Salomon MD - 03/13/2020 7:22 AM EDT MICU STAFF PROGRESS NOTE Critical Care Medicine Author: PAVAN ACUÑA Patient seen and examined on critical care rounds. Interval Events: Oxygenation and work of breathing improved with CPAP/BIPAP, but having desaturations when transitioned to high flow. Mouth is dry with prolonged CPAP use. Having episodic fevers to as high as 39. Subjectively feels as though his breathing is improved. Active problems: ?? Acute hypoxemic respiratory failure ?? Pneumocystis jiroveci pneumonia ?? Autoimmune necrotizing myopathy ?? DVT on Xarelto ?? Hyperglycemia secondary to steroids Exam: Last value Range last 24 hrs Temperature Temp: 37 ??C (98.6 ??F) Temp: [37 ??C (98.6 ??F)-39 ??C (102.2 ??F)] Heart Rate Heart Rate: 72 Heart Rate: [72-88] Blood Pressure BP: 120/70 BP: (101-137)/(53-78) Respiratory Rate Resp: 27 Resp: [19-40] SpO2 SpO2: 93 % SpO2: [88 %-98 %] Art BP BP (Arterial Line): -- Ventilator: HFNC 50L and 100% Current Drips: None Awake and alert, very comfortable appearing, conversant No significant work of breathing, mildly tachypneic Lungs with scattered crackles at the bases laterally, symmetric air entry bilaterally Heart regular, S1 S2 + 0 Abdomen soft, non-tender No extremity edema Labs/studies: WBC 10.9 Hg 10.0 plt 223 Na 132 K 5.1 Cl 96 CO2 24 BUN 18 Creat 0.68 ASSESSMENT, MANAGEMENT, and DECISION MAKIN64 y/o man with 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 He has since been admitted with acute hypoxic respiratory failure and ARDS from PJP pneumonia. He was extubated yesterday and had progressive hypoxia overnight. His oxygen requirement remains very high, but his work of breathing has improved and he appears very comfortable. He is still at high risk for re-intubation, but has managed to maintain his oxygen saturations on his current regimen for almost 48 hours.We will try to gently re- introduce oral nutrition with clear liquids today and monitor his respiratory status closely. Also of note, he has not had a bowel movement in almost a week. His abdomen is relatively soft, but this may be contributing to his work of breathing and hypoxia. Plan: Continue high flow and CPAP as needed Continue bactrim and steroids Add NPH to his SSI while on steroids Clear liquids today Bowel regimen xarelto for DVT IS PATIENT CRITICALLY ILL ? Is there a high potential of sudden, clinically significant, or life threatening deterioration? Yes Is there a need for direct personal assessment and management to treat/prevent multiple vital organfailure/deterioration? Yes If this patient is not critically ill, I certify the patient requires continued in-patient hospitalization for [ ] PATIENT IS CRITICALLY ILL WITH THESE DIAGNOSES BEING MANAGED BY [facility] TEAM: ARDs Pneumonia Bacterial: Specify suspected or known bacteria: PJP Respiratory Failure Acute with hypoxia I personally performed 35 minutes of aggregate critical care time exclusive of procedures and teaching. This includes time spent during direct patient evaluation and reassessment, interpreting diagnostic tests, directing life and/or organ supporting interventions and documentation on the unit. PAVAN ACUÑA Shakeel Haque DO - 03/13/2020 6:28 AM EDT CRITICAL CARE MEDICINE PROGRESS NOTE Patient info: Name: Jeison Cervantes : 1955 Date of Admission: 03/08/2020 ( Hospital Day 5 days ) Responsible Attending:Pavan Acuña MD ID: [id number] y.o. 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 Hospital Problem List: Acute hypoxemic respiratory failure Steroid induced hyperglycemia Deep Vein Thrombosis Necrotizing myopathy PJP Pneumonia 24 Hour Events/Subjective: - NAOE, HDS, afebrile (Tmax 37.9) - transitioned between HFNC and CPAP throughout the night FiO2 70-100%. - quickly desats with minimal movement - this morning subjectively feeling somewhat improved, feels that CPAP is helpful but dries out his mouth - on HFNC 90-100% saturating the low 90s Inpatient Medications: Scheduled Meds: ??? insulin lispro 1-6 Units Subcutaneous Q4H KORINA ??? predniSONE 40 mg Oral BID Followed by ??? [START ON 03/15/2020] predniSONE 40 mg Oral Daily Followed by ??? [START ON 03/20/2020] predniSONE 20 mg Oral Daily ??? rivaroxaban 20 mg Oral Daily ??? folic acid 1 mg Oral Daily ??? pantoprazole EC 40 mg Oral Daily ??? finasteride 5 mg Oral Daily ??? tamsulosin 0.4 mg Oral Daily ??? sulfamethoxazole-trimethoprim 15 mg/kg/day Intravenous Q6H KORINA PRN Meds: acetaminophen, potassium chloride ER OR potassium chloride ER, HYDROmorphone Vitals: Last value Range last 24 hrs Temperature Temp: 37 ??C (98.6 ??F) Temp: [37 ??C (98.6 ??F)-39 ??C (102.2 ??F)] Heart Rate Heart Rate: 72 Heart Rate: [72-88] Blood Pressure BP: 120/70 BP: (101-137)/(53-78) Respiratory Rate Resp: 27 Resp: [19-40] SpO2 SpO2: 93 % SpO2: [88 %-98 %] Ins/Outs: Intake/Output Summary (Last 24 hours) at 03/13/2020 0628 Last data filed at 03/13/2020 0600 Gross per 24 hour Intake 1958 ml Output 3925 ml Net -1967 ml Physical Exam: General: Pleasant middle aged male, laying in comfortably in bed, but does have increased work of breathing compared to yesterday Cardiac: Normal S1 and S2, Regular rate and rhythm; No murmrs/gallops/rubs. Respiratory: Nonlabored. CTA in the anterior lung love and equal Abd: obese, + BS; soft, non-tender, non-distended, no obvious masses. Ext: WWP without le edema, cyanosis or clubbing. DPP 2+ bilaterally. Labs: CBC: Recent Labs 03/13/20 0125 03/12/20 0045 03/11/20 0050 WBC 10.9* 8.5 10.2* HGB 10.0* 10.3* 10.1* PLATELET 223 256 278 Chemistry: Recent Labs 03/13/2012403/12/204403/11/204903/10/204402/09/20 0911 01/23/20 0853 NA 132* 132* 136 -- 139 < > 137 138 K 5.1* 4.6 4.7 < > 3.8 < > 4.8 4.5 CL 96* 96* 100 -- 103 < > 99 97* CO2 24 23 21* -- 23 < > 26 29 BUN 18 19 27* -- 22* < > 26* 24* CREATININE 0.68* 0.74* 0.79* -- 0.71* < > 0.79* 0.83 GLUCOSE -- -- -- -- 199 -- 278* 170 < > = values in this interval not displayed. Recent Labs 03/13/2012403/12/204403/11/204903/08/202199 CALCIUM 8.9 8.7 9.2 < > 9.6 MAGNESIUM -- -- -- -- 0.79 PHOS -- -- -- -- 3.0 < > = values in this interval not displayed. LFT's: Recent Labs 03/08/20219902/09/2091001/23/20 0853 11/21/19 0829 BILITOT 0.4 0.5 0.7 0.5 BILIDIR -- -- -- 0.1 ALBUMIN 2.8* 3.9 4.0 4.3 ALKPHOS 54 37* 37* 37* ALT 43 75* 78* 33 AST 35 18 37 40* Coags: Recent Labs 03/08/202199 PT 16.2* INR 1.4 PTT 29 Cardiac enzymes: Recent Labs 03/08/20219902/09/20 0911 01/23/20 0853 CK 41 156 342* Heme: Recent Labs 03/08/202199 LDH 458* Microbiology: Resp Viral penal negative BAL cultures negative PCP smear + Pertinent radiology/diagnostic studies: CXR this morning reviewed. Assessment: 64 y.o. 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 Patient remains relatively stable from a respiratory standpoint from yesterday, but remains very tenuous and without much room for further decompensation before requiring intubation. As it seems to be working will continue with yesterdays plan of intermittent NIPPV to try to avoid intubation. Will start some clear liquids for calories when on HFNC. Otherwise no new changes in plan. Does have a dry cough, but no evidence of an underlying other infectious pna so will continue to hold on escalating antibiotics. If patient is able to tolerate PO will consider transition to PO bactrim later today. Today's Plan: - continue treatment for severe PJP PNA with IV bactrim and prednisone taper - continue trial of NIPPV today with low threshold to intubate - consider switching to PO bactrim, from IV if able to take clears - add on NPH bid today given bid steroid dosing - start bowel regimen - continue to monitor potassium (given that patient is on bactrim) - continue to monitor I/os and daily wts closely Plan: Neuro - No active issues CV - No active issues Pulm/ID #Acute hypoxemic respiratory failure: #PJP Pneumonia - s/p Bronchoscopy with BAL, PJP positive - Continue IV bactrim 15/mg/kg/day (03/08-present), will be a 21 day course, transition to PO when able - Continue 21 day Prednisone taper for PJP treatment: - PO prednisone 40mg BID for 5 days - PO prednisone 40mg QD for 5 days - PO prednisone 20mg QD for 11 days - s/p atypical PNA coverage - s/p Lasix bolus IV 20mg on 03/10 - Follow-up Asperigillosis Ag and [id number] - continue to try NIPPV and wean FiO2 requirement as able GI - No active issues Renal #BPH: - Continue finasteride and tamsulosin - dubois in place Heme #DVT: - c/w Xarelto 20mg qd #Chronic normocytic anemia: - consistent with anemia of chronic disease - Daily CBC Endo #Steroid induced hyperglycemia: - Sensitive sliding scale - given patient will be NPO today will hold on changes to insulin, but will monitor glucose closely Rheum #Necrotizing myopathy: - Appreciate rheumatology recommendations - PT/OT - c/w PPI given chronic steroids - hold immunosuppressive agents until outpatient f/u with rheumatology Bundle: - DVT prophylaxis: Xarelto - GI prophylaxis: Protonix - Activity: As tolerated - Nutrition: Clears when on HFNC - CODE STATUS: Full Code Shakeel [place], DO 03/13/20 6:28 AM Internal Medicine, PGY-2 Critical Care, #[id number] Cassius Couch RCP - 03/13/2020 3:19 AM EDTRespiratory Therapy NIV Note NIV Settings: NIV Mode: CPAP IPAP (cmH20): (S) 10 EPAP (cmH20): (S) 10(sat in mid 80's, will change pt. position. ) FiO2 (%): (S) 80 % NIV Measurements: Resp: 19 Mve: 18.3 Leak (L/min): 0 L/min Vte: 737 SpO2: 94 % Skin Assessment: NIV Skin Assessment WDL: WDL Mepilex Applied: Yes Nares Assessment WDL: WDL Breath Sounds: diminished, right base Assessment: Assumed care of pt. On HFNC settings of 50L 80%. Pt. O2 requirements fluctuated all night. FiO2 increased to 100% at times on HFNC to keep sats above 90%. Pt. Was transitioned to CPAP of 6 for overnight and 60%. Pt. Requested a break after a couple of hours and was on HFNC 50L 70% with Spo2 89-92%. Pt. sats started to drop as low as 84% and was transitioned back to CPAP. Sats would not maintain on previous settings and CPAP increased to 10. FiO2 eventually increased to 80%. Pt. Rested the rest of the night on these settings with sat of 90-91%. Plan: Continue to support pt. With HFNC and CPAP, wean settings as tolerated. SABRA BraunP Nile Sifuentes RN - 03/12/2020 5:07 PM EDT OUTCOME EVALUATION NOTE: OUTCOME SUMMARY: Pt alert and oriented x4. Able to move all extremities and follow commands. Dyspneic on exertion andat rest. CAM -. RASS of 0. HR NSR. BP normotensive. Pt on HFNC and CPAP throughout day, between 70-100% FiO2. Pt febrile, Tmax 39.1C, PRN tylenol given. Pt kept NPO (give meds) due to respiratory status per [facility] blue team. UOP adequate. No BM today, last BM 03/07, bowel medications offered and team notified. PLAN MOVING FORWARD: Continue to monitor respiratory status Trial CPAP overnight INDIVIDUALIZED FALL PREVENTION INTERVENTIONS: Patient-specific fall risk factors per assessment: [current deficits]: IV lines/drains, RAYGOZA, weakness, advanced age Assistance [level of assistance required for transfers and ambulation]: 2 assist Supervision [direct monitoring required during toileting and ADLs]: Direct Surveillance [continuous indirect monitoring]: [facility] Alley ferrari [employer] - 03/12/2020 8:13 AM EDT Respiratory Therapy NIV Note NIV Settings: NIV Mode: CPAP IPAP (cmH20): (S) 10 EPAP (cmH20): 6 FiO2 (%): (S) 60 %(SpO2 97%) NIV Measurements: Resp: 26 Mve: 26.5 Leak (L/min): 2 L/min Vte: 758 SpO2: 95 % Laboratory: Lab Results Component Value Date/Time PHART 7.54 (H) 03/12/2020 04:04 AM [id number] 27 (L) 03/12/2020 04:04 AM PO2ART 64 (L) 03/12/2020 04:04 AM BPD5OGE 23.0 03/12/2020 04:04 AM BEART 0.4 03/12/2020 04:04 AM Skin Assessment: NIV Skin Assessment WDL: WDL Mepilex Applied: Yes Nares Assessment WDL: WDL Breath Sounds: Diminished ASSESSMENT: I received Jeison this morning on HFNC at 50L/90%. His SpO2 anywhere between 86- 90%. Shortly after first assessment he was increased to 100% for sustained desat to 86%. At first he was placed on BiPAP 12/8 100% and weaned to 10/8 80%. Then he was placed back on HFNC at 50L/100%, weaned to 50L/90% before going back on V60. This time placed on CPAP 6 and taking in VT 600-700mL. He was able to rest comfortably, and remained on it for about 3hrs before going back to HFNC at 50L/90%, and will continue to wean as tolerated. PLAN: -trial of BiPAP before intubation - Wear CPAP overnight for rest SABRA MoraP Pavan Salomon MD - 03/12/2020 7:34 AM EDT MICU STAFF PROGRESS NOTE Critical Care Medicine Author: PAVAN ACUÑA Patient seen and examined on critical care rounds. Interval Events: Extubated yesterday. Escalating oxygen requirements overnight on high flow nasal cannula, up to 100% this morning. Spiked a fever to 38.8. Given pip/tazo and vancomycin overnight. Net negative 900 cc in the past 24 hours. Active problems: ?? Acute hypoxemic respiratory failure ?? Pneumocystis jiroveci pneumonia ?? Autoimmune necrotizing myopathy ?? DVT on Xarelto ?? Hyperglycemia secondary to steroids Exam: Last value Range last 24 hrs Temperature Temp: 37.7 ??C (99.9 ??F) Temp: [37.4 ??C (99.3 ??F)-38.8 ??C (101.8 ??F)] Heart Rate Heart Rate: 81 Heart Rate: [73-105] Blood Pressure BP: 118/59 BP: (111-121)/(59-70) Respiratory Rate Resp: (!) 34 Resp: [16-36] SpO2 SpO2: 91 % SpO2: [87 %-97 %] Art BP BP (Arterial Line): -- Ventilator: HFNC 50L and 100% Current Drips: None Awake and alert, comfortable [place] increased work of breathing, mildly tachypneic Lungs with scattered crackles at the bases Heart regular, S1 S2 + 0 Abdomen soft, non-tender No extremity edema Labs/studies: WBC down to 8.5 Hg 10.3 plt 256 Na 132 K 4.6 Cl 96 CO2 23 BUN 19 Creat 0.74 7.54/ CXR - bilateral patchy airspace opacities, unchanged ASSESSMENT, MANAGEMENT, and DECISION MAKIN64 y/o man with 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 He has since been admitted with acute hypoxic respiratory failure and ARDS from PJP pneumonia. He was extubated yesterday and had progressive hypoxia overnight. His CXR shows stable parenchymal opacities arguing against a new infectious process. I suspect this reflects gradual derecruitment after removal of positive pressure. He may respond to non- invasive ventilation as a way to provide some positive pressure, but we will need to have a low threshold for re-intubation if his oxygenation doesn't improve. Plan: Stop vanc and pip/tazo Trial BIPAP, plan for breaks on high flow Low threshold for intubation if BIPAP isn't effective Continue bactrim and steroids xarelto for DVT SSI, increase dose IS PATIENT CRITICALLY ILL ? Is there a high potential of sudden, clinically significant, or life threatening deterioration? Yes Is there a need for direct personal assessment and management to treat/prevent multiple vital organfailure/deterioration? Yes If this patient is not critically ill, I certify the patient requires continued in-patient hospitalization for [ ] PATIENT IS CRITICALLY ILL WITH THESE DIAGNOSES BEING MANAGED BY [facility] TEAM: ARDs Pneumonia Bacterial: Specify suspected or known bacteria: PJP Respiratory Failure Acute with hypoxia I personally performed 40 minutes of aggregate critical care time exclusive of procedures and teaching. This includes time spent during direct patient evaluation and reassessment, interpreting diagnostic tests, directing life and/or organ supporting interventions and documentation on the unit. PAVAN ACUÑA DADTShakeel Funez DO - 03/12/2020 5:42 AM EDT CRITICAL CARE MEDICINE PROGRESS NOTE Patient info: Name: Jeison Cervantes : 1955 Date of Admission: 03/08/2020 ( Hospital Day 4 days ) Responsible Attending:Noy Mckeon MD ID: [id number] y.o. 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 Hospital Problem List: Acute hypoxemic respiratory failure Steroid induced hyperglycemia Deep Vein Thrombosis Necrotizing myopathy PJP Pneumonia 24 Hour Events/Subjective: - Extubated to HFNC weaned to 50% FiO2 and looking well yesterday afternoon - overnight he was febrile to 101.8, HFNC up to 90%, and abx were broadened to vanc/zosyn for possible nosocomial infection - on ventimask overnight because of mouth breathing - this morning remains on HFNC, feels alittle better this morning, but does report a long night of trouble with breathing - objectively working harder to breath Inpatient Medications: Scheduled Meds: ??? vancomycin 1 g Intravenous Q8H ??? [START ON 03/13/2020] Vancomycin Level - MAR Order Reminder NOT APPLICABLE Once ??? piperacillin-tazobactam 3.375 g Intravenous Q8H ??? predniSONE 40 mg Oral BID Followed by ??? [START ON 03/15/2020] predniSONE 40 mg Oral Daily Followed by ??? [START ON 03/20/2020] predniSONE 20 mg Oral Daily ??? rivaroxaban 20 mg Oral Daily ??? chlorhexidine 15 mL Oral BID ??? folic acid 1 mg Oral Daily ??? insulin lispro 1-4 Units Subcutaneous Q4H KORINA ??? pantoprazole EC 40 mg Oral Daily ??? finasteride 5 mg Oral Daily ??? tamsulosin 0.4 mg Oral Daily ??? sulfamethoxazole-trimethoprim 15 mg/kg/day Intravenous Q6H KORINA PRN Meds: acetaminophen, potassium chloride ER OR potassium chloride ER, HYDROmorphone, glucose 40% oral geL OR dextrose 10% OR glucagon (human recombinant) Vitals: Last value Range last 24 hrs Temperature Temp: 37.7 ??C (99.9 ??F) Temp: [37.3 ??C (99.1 ??F)-38.8 ??C (101.8 ??F)] Heart Rate Heart Rate: 77 Heart Rate: [73-105] Blood Pressure BP: 120/61 BP: (111-121)/(60-70) Respiratory Rate Resp: 24 Resp: [16-36] SpO2 SpO2: 92 % SpO2: [87 %-97 %] Ins/Outs: Intake/Output Summary (Last 24 hours) at 03/12/2020 0542 Last data filed at 03/12/2020 0400 Gross per 24 hour Intake 3244 ml Output 4175 ml Net -931 ml Physical Exam: General: Pleasant middle aged male, laying in comfortably in bed, but does have increased work of breathing compared to yesterday Cardiac: Normal S1 and S2, Regular rate and rhythm; No murmrs/gallops/rubs. Respiratory: Nonlabored. CTA in the anterior lung love, some crackles at the bases posterior Abd: obese, + BS; soft, non-tender, non-distended, no obvious masses. Ext: WWP without le edema, cyanosis or clubbing. DPP 2+ bilaterally. Labs: CBC: Recent Labs 03/12/204403/11/204903/10/2044 WBC 8.5 10.2* 10.3* HGB 10.3* 10.1* 9.7* PLATELET 256 278 256 Chemistry: Recent Labs 03/12/204403/11/204903/10/20 1615 03/10/204402/09/20 0911 01/23/20 0853 NA 132* 136 -- 139 < > 137 138 K 4.6 4.7 4.2 3.8 < > 4.8 4.5 CL 96* 100 -- 103 < > 99 97* CO2 23 21* -- 23 < > 26 29 BUN 19 27* -- 22* < > 26* 24* CREATININE 0.74* 0.79* -- 0.71* < > 0.79* 0.83 GLUCOSE -- -- -- 199 -- 278* 170 < > = values in this interval not displayed. Recent Labs 03/12/204403/11/204903/10/204403/08/202199 CALCIUM 8.7 9.2 9.2 9.6 MAGNESIUM -- -- -- 0.79 PHOS -- -- -- 3.0 LFT's: Recent Labs 03/08/20219902/09/2091001/23/20 0853 11/21/19 0829 BILITOT 0.4 0.5 0.7 0.5 BILIDIR -- -- -- 0.1 ALBUMIN 2.8* 3.9 4.0 4.3 ALKPHOS 54 37* 37* 37* ALT 43 75* 78* 33 AST 35 18 37 40* Coags: Recent Labs 03/08/20 220 PT 16.2* INR 1.4 PTT 29 Cardiac enzymes: Recent Labs 03/08/20219902/09/20 0911 01/23/20 0853 CK 41 156 342* Heme: Recent Labs 03/08/202199 LDH 458* Microbiology: Resp Viral penal negative BAL cultures negative PCP smear + Pertinent radiology/diagnostic studies: CXR this morning reviewed. Assessment: 64 y.o. 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 Unclear etiology of patients worsening O2 requirement and worsening respiratory status overnight, but seems like patient is pressure responsive so there is likely a component of de-recruitment and collapsing of the alveoli in this patient with severe PJP PNA. Thus, will trial bipap today with low threshold to re-intubate later today. Other etiologies seems less likely: PE unlikely given on AC and HDS, Nosocomial infection seems lesslikely given improving WBC, fever could be explained by PJP, only infrequent dry coughs and no changes on CXR. Volume overload seems unlikely given low proBNP and extensive autodiuresis. Inflammatory lung disease seems Unlikely with the acute onset symptoms during all the steroids he was getting and relatively normal inflammatory markers. Today's Plan: - continue treatment for severe PJP PNA with IV bactrim and prednisone taper - trial NIPPV today with low threshold to intubate - stop zosyn and vanco and monitor for changes/recurrent fevers - switch to PO bactrim when able given high volume load - continue to monitor I/os and daily wts closely Plan: Neuro - No active issues CV - No active issues Pulm/ID #Acute hypoxemic respiratory failure: #PJP Pneumonia - s/p Bronchoscopy with BAL, PJP positive - Continue IV bactrim 15/mg/kg/day (03/08-present), will be a 21 day course - Continue 21 day Prednisone taper for PJP treatment: - PO prednisone 40mg BID for 5 days - PO prednisone 40mg QD for 5 days - PO prednisone 20mg QD for 11 days - s/p atypical PNA coverage - Lasix bolus IV 03/10 - Follow-up Asperigillosis Ag and [id number] GI - No active issues Renal #BPH: - Continue finasteride and tamsulosin - insert dubois for 1L of urinary retention - bladder scans Heme #DVT: - c/w Xarelto 20mg qd #Chronic normocytic anemia: - consistent with anemia of chronic disease - Daily CBC Endo #Steroid induced hyperglycemia: - Sensitive sliding scale - given patient will be NPO today will hold on changes to insulin, but will monitor glucose closely Rheum #Necrotizing myopathy: - Appreciate rheumatology recommendations - PT/OT - c/w PPI given chronic steroids Bundle: - DVT prophylaxis: Xarelto - GI prophylaxis: Protonix - Activity: As tolerated - Nutrition: Tube feeds - CODE STATUS: Full Code Shakeel Funez, 03/12/20 5:42 AM Internal Medicine, PGY-2 Critical Care, #[id number] Otilio Otero [facility] - 03/11/2020 10:33 PM EDT Respiratory Therapy NIV Note Current Settings: High flow nasal cannula 50L, FiO2-90% Resp: 27 SpO2: 93 % Laboratory: No results found for: PHART, QTK0SYJ, PO2ART, PTA2EKI, BEART Last Chest X-ray: Results for orders placed during the hospital encounter of 03/08/20 XR Chest One View Narrative EXAMINATION: XR CHEST ONE VIEW CLINICAL HISTORY: Increasing O2 requirement TECHNIQUE: 1 view of the chest COMPARISON: Chest radiograph 03/08/2020. CTA chest 03/07/2020 FINDINGS: ET tube tip is 4.2 cm above the yaima. Enteric tube courses inferiorly below the diaphragm, with sidehole visualized in the proximal stomach and tip out of the field of view. Low lung volumes. Hazy perihilar and peripheral interstitial and patchy airspace opacities are again seen, slightly more confluent on the left. Cardiophrenic and retrocardiac opacities are also noted that may represent atelectasis. There is no pneumothorax or pleural effusion. Cardiac silhouette is stable. Impression Grossly unchanged multifocal pulmonary opacities that may represent any combination of pulmonary edema, ARDS, and/or atypical/multifocal pneumonia. I have personally reviewed the image(s) and the resident's interpretation and agree with the findings, Yanet Connell at 03/10/2020 4:25 AM Thank you for letting us participate in the care of this patient. For questions regarding this report, please contact the number below. Skin Assessment: Nares Assessment WDL: WDL Breath Sounds: clear/ diminished Assessment: Received patient on HFNC, 45L, FiO2-50%, patient resting comfortably. Pt experienced moments of desaturation and FiO2 was increased up to 90%, the patients nurse informed me that he was febrile, ice packs were being placed, pt experiencing hot and cold moments. Patient transitioned to HighFlow mask, since he is a mouth breather, 60L and an FiO2-80%, SpO2 at 93%. Plan: Continue to wean FiO2 as tolerated. SABRA AlonsoP Tanner Carreon, RT - 03/11/2020 1:39 PM EDTCurrent Settings: High flow nasal cannula (S) 45 L/min (S) 50 % Airway: 8.0 at 23 cm at the Teeth. Skin Integrity: WDL Ambu bag setup at HOB Breath Sounds: coarse to clear/diminished Secretions: scant white thin Assessment / Events: Received patient on PS 5 / +10 PEEP 45% FiO2 RR~19bpm Ve~13 Sating 95% Vt 700 EtCo2 28 Titrated PEEP to 8 40% Extubated ~0945 to 6lpm NC, strong cough with minimal secretions, good air movement, no stridor, good phonation. Satting high 80s, placed on HFNC 50lpm 60% Plan: SpO2 goal >92% Encourage deep breath and cough Up to chair when able Encourage IS x10 breaths/day while awake Noy berger MD - 03/11/2020 9:32 AM EDT MICU STAFF PROGRESS NOTE Critical Care Medicine Author: Noy Mckeon MD Patient seen and examined on critical care rounds. INTERVAL EVENTS: - Passed SBT this morning - Extubated to HFNC Active problems: Acute hypoxemic respiratory failure Pneumocystis jiroveci pneumonia Autoimmune necrotizing myopathy DVT on Xarelto ROS: All other ROS are unremarkable except those mentioned above in interval events Exam: Last value Range last 24 hrs Temperature Temp: 37.4 ??C (99.3 ??F) Temp: [36.1 ??C (97 ??F)-37.5 ??C (99.5 ??F)] Heart Rate Heart Rate: 79 Heart Rate: [66-84] Blood Pressure BP: 118/61 BP: (105-118)/(57-70) Respiratory Rate Resp: 26 Resp: [10-26] SpO2 SpO2: 93 % SpO2: [87 %-95 %] Art BP BP (Arterial Line): -- Awake and interactive on 30 prop, wants tube out S1, S2, no murmurs, rubs or gallops CTA b/l--no coarse breath sounds Soft, non tender, non distended Warm extremities No obvious muscle wasting noted Labs/studies:Last 3 wbc, hgb, hct plt Recent Labs 03/11/20 0050 03/10/20 0045 03/08/200 WBC 10.2* 10.3* 11.1* HGB 10.1* 9.7* 10.7* HCT 29.9* 28.6* 30.8* PLATELET 278 256 252 Last 3 Lytes Recent Labs 03/11/20 0050 03/10/20 1615 03/10/20 0045 03/08/20 2200 NA 136 -- 139 134* K 4.7 4.2 3.8 3.6 CL 100 -- 103 98 CO2 21* -- 23 20* BUN 27* -- 22* 22* CREATININE 0.79* -- 0.71* 0.73* Last 3 LFTs Recent Labs 03/08/20 2200 02/09/20 0911 01/23/20 0853 11/21/19 0829 AST 35 18 37 40* ALT 43 75* 78* 33 ALKPHOS 54 37* 37* 37* BILITOT 0.4 0.5 0.7 0.5 BILIDIR -- -- -- 0.1 Last Ca, Mg, Phos Recent Labs 03/11/20 0050 03/08/20 2200 CALCIUM 9.2 < > 9.6 PHOS -- -- 3.0 < > = values in this interval not displayed. Last 3 Coags Recent Labs 03/08/20 2200 PT 16.2* INR 1.4 PTT 29 Last 3 ProBNP, Trop, CK Recent Labs 03/08/20 220 CK 41 ASSESSMENT, MANAGEMENT, and DECISION MAKING: Mr. Cervantes is a 64 year old man with a history of necrotizing myositis on steroids, MTX, and cellcept, who presented with marked hypoxemia, shortness of breath, and fever, and was found to have PJP on bronchoscopy. He was started on Bactrim and steroids for treatment on admission, due to high suspicion. He was extubated today and is doing well. Perhaps later this week, we can change to oral Bactrimto minimize fluids he is getting. For his DVT history, we will continue his Xarelto. We spoke to rheumatology, who is okay with holding his immunosuppression now. He will have follow upwith them about restarting these in the future. There is no evidence that he has any active myositisright now with normal CK. - Continue Bactrim and steroids - Extubate today IS PATIENT CRITICALLY ILL ? Is there a high potential of sudden, clinically significant, or life threatening deterioration? Yes Is there a need for direct personal assessment and management to treat/prevent multiple vital organfailure/deterioration? Yes PATIENT IS CRITICALLY ILL WITH THESE DIAGNOSES BEING MANAGED BY [facility] TEAM: Intubated for airway protection secondary to hypoxemia, needed bronchoscopy Pneumonia Unspecified organism Respiratory Failure Acute with hypoxia I personally performed 45 minutes of aggregate critical care time exclusive of procedures and teaching. This includes time spent during direct patient evaluation and reassessment, interpreting diagnostic tests, directing life and/or organ supporting interventions and documentation on the unit. Noy Mckeon MD ellogg, Shakeel Abbott DO - 03/11/2020 5:58 AM EDT CRITICAL CARE MEDICINE PROGRESS NOTE Patient info: Name: Jeison Cervantes : 1955 Date of Admission: 03/08/2020 ( Hospital Day 3 days ) Responsible Attending:Noy Mckeon MD ID: 64 y.o. 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 Hospital Problem List: Acute hypoxemic respiratory failure Steroid induced hyperglycemia Deep Vein Thrombosis Necrotizing myopathy 24 Hour Events/Subjective: - NAOE, HDS and afebrile - responded well to 20 IV lasix - FiO2 requirement weaned overnight - this morning: PSV 10/5, 45% - passed SBT this am Inpatient Medications: Scheduled Meds: ??? protein powder 3 Scoop Per OG Tube 5 Times Daily ??? predniSONE 40 mg Oral BID Followed by ??? [START ON 03/15/2020] predniSONE 40 mg Oral Daily Followed by ??? [START ON 03/20/2020] predniSONE 20 mg Oral Daily ??? rivaroxaban 20 mg Oral Daily ??? chlorhexidine 15 mL Oral BID ??? folic acid 1 mg Oral Daily ??? insulin lispro 1-4 Units Subcutaneous Q4H KORINA ??? pantoprazole EC 40 mg Oral Daily ??? finasteride 5 mg Oral Daily ??? tamsulosin 0.4 mg Oral Daily ??? sulfamethoxazole-trimethoprim 15 mg/kg/day Intravenous Q6H KORINA Continuous Infusions: ??? tube feeding diet Stopped (03/11/20 0400) ??? propofoL 30 mcg/kg/min (03/10/20 1800) ??? NORepinephrine PRN Meds: potassium chloride ER OR potassium chloride ER, HYDROmorphone, glucose 40% oral geL OR dextrose 10% OR glucagon (human recombinant) Vitals: Last value Range last 24 hrs Temperature Temp: 37.2 ??C (99 ??F) Temp: [36.1 ??C (97 ??F)-37.5 ??C (99.5 ??F)] Heart Rate Heart Rate: 74 Heart Rate: [63-80] Blood Pressure BP: 116/58 BP: (96-117)/(57-70) Respiratory Rate Resp: 17 Resp: [10-25] SpO2 SpO2: 94 % SpO2: [87 %-95 %] Ins/Outs: Intake/Output Summary (Last 24 hours) at 03/11/2020 0558 Last data filed at 03/11/2020 0200 Gross per 24 hour Intake 2446 ml Output 2866 ml Net -420 ml Physical Exam: General: Intubated and sedated, RASS of -2 Cardiac: Normal S1 and S2, Regular rate and rhythm; No murmrs/gallops/rubs. Respiratory: Nonlabored. CTA in the anterior lung love Abd: obese, + BS; soft, non-tender, non-distended, no obvious masses. Ext: WWP without le edema, cyanosis or clubbing. DPP 2+ bilaterally. Labs: CBC: Recent Labs 03/11/204903/10/204403/08/202199 WBC 10.2* 10.3* 11.1* HGB 10.1* 9.7* 10.7* PLATELET 278 256 252 Chemistry: Recent Labs 03/11/204903/10/20 1615 03/10/204403/08/20219902/09/20 0911 01/23/20 0853 NA 136 -- 139 134* 137 138 K 4.7 4.2 3.8 3.6 4.8 4.5 CL 100 -- 103 98 99 97* CO2 21* -- 23 20* 26 29 BUN 27* -- 22* 22* 26* 24* CREATININE 0.79* -- 0.71* 0.73* 0.79* 0.83 GLUCOSE -- -- 199 -- 278* 170 Recent Labs 03/11/200 03/10/204403/08/202199 CALCIUM 9.2 9.2 9.6 MAGNESIUM -- -- 0.79 PHOS -- -- 3.0 LFT's: Recent Labs 03/08/20219902/09/20 0911 01/23/20 0853 11/21/19 0829 BILITOT 0.4 0.5 0.7 0.5 BILIDIR -- -- -- 0.1 ALBUMIN 2.8* 3.9 4.0 4.3 ALKPHOS 54 37* 37* 37* ALT 43 75* 78* 33 AST 35 18 37 40* Coags: Recent Labs 03/08/20 2200 PT 16.2* INR 1.4 PTT 29 Cardiac enzymes: Recent Labs 03/08/20 2200 02/09/20 0911 01/23/20 0853 CK 41 156 342* Heme: Recent Labs 03/08/20 220 LDH 458* Microbiology: Resp Viral penal negative BAL cultures negative PCP smear + Pertinent radiology/diagnostic studies: CXR this morning reviewed. Assessment: 64 y.o. 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 Patient doing well with treatment for PJP PNA and slight diuresis yesterday, vent settings improved and passed SBT, will plan to extubate to [facility] today and continue treatment otherwise. Once extubated with advance diet as tolerated and consult PT/OT. Today's Plan: - continue treatment for severe PJP PNA - extubate - advance diet as able once extubated Plan: Neuro - No active issues CV - No active issues Pulm/ID #Acute hypoxemic respiratory failure: #PJP Pneumonia - SBT and extubate when able - Bronchoscopy yesterday with BAL, PJP positive, f/u on BAL cultures - Continue IV bactrim 15/mg/kg/day (03/08-present), will be a 21 day course - Continue 21 day Prednisone taper for PJP treatment: - PO prednisone 40mg BID for 5 days - PO prednisone 40mg QD for 5 days - PO prednisone 20mg QD for 11 days - stop atypical PNA coverage - Lasix bolus IV 03/10 - Follow-up Asperigillosis Ag and wtbm-f-ozihsw GI - No active issues Renal #BPH: - Continue finasteride and tamsulosin - insert dubois for 1L of urinary retention - bladder scans Heme #DVT: - c/w Xarelto 20mg qd #Chronic normocytic anemia: - consistent with anemia of chronic disease - Daily CBC Endo #Steroid induced hyperglycemia: - Sensitive sliding scale Rheum #Necrotizing myopathy: - Appreciate rheumatology recommendations - PT/OT - c/w PPI given chronic steroids Bundle: - DVT prophylaxis: Xarelto - GI prophylaxis: Protonix - Activity: As tolerated - Nutrition: Tube feeds - CODE STATUS: Full Code Shakeel Funez, DO 03/11/20 5:58 AM Internal Medicine, PGY-2 Critical Care, #[id number] Faith Lei RN - 03/11/2020 5:29 AM EDTOUTCOME EVALUATION NOTE: OUTCOME SUMMARY: Pt remains able to communicate w whiteboard. No complaints of pain. Prop remains at 30. PS PEEP 10, FiO2 45%, RR 5. NSR. Afebrile. UO 150-375 mL Q2. TF advaced to 40 mL/hr. Paused at 0400 for plan to extubate. PLAN MOVING FORWARD: Plan to extubate today Wean O2 support INDIVIDUALIZED FALL PREVENTION INTERVENTIONS: Patient-specific fall risk factors per assessment: Deconditioned Assistance: 2 assist, Bedrest w/ Q2hr turns Supervision: Hands on Surveillance: Bed locked in low position, call butt within reach, purposeful hourly rounding, clutter free environment, bed/chair alarm on Patient-specific fall prevention interventions for sensory deficits provided: N/A CPG GOAL OUTCOME EVALUATION: Continue care plan as documented. Otilio Otero RCP - 03/10/2020 11:03 PM EDTAMV Protocol: Yes SBT Protocol: Yes Vent Settings: Ventilator Mode: PS/CPAP Tidal Volume Set: 0 Resp Rate Set: 0 PEEP Set: 10 FiO2: (S) 45 % Ventilator Measurements: Resp: 18 Vt Exhaled: 768 PIP: 17 MAP: 12 Plateau Press: Ve: 12.7 PEEP: SpO2: 93 % EtCO2: 28 mmHg Airway: 8.0 @ 23 cm at the Teeth. Skin Integrity: WDL Breath Sounds: diminished Secretions: scant, thin, clear Assessment / Events: Received patient intubated and mechanically ventilated in PSV mode, 5/10, FiO2-50% titrated down to 45%. Plan of the Day: Continue to wean per AMV protocol as tolerated. Otilio Lima RCP Tanner Alfredo, RT - 03/10/2020 4:27 PM EDTAMV Protocol: Yes SBT Protocol: Yes Current Settings: Mode: PS/CPAP PS: 5 cmH2O PEEP: 10 cmH2O FiO2: (S) 50 % Ventilator Measurements: RR: ~ 15 bpm Vt Spontaneous: 779 ml (~10ml/kg) Ve: 12.6 L/min EtCO2: 25 mmHg SpO2: 93 % Airway: 8.0 at 23 cm at the Teeth. Skin Integrity: WDL Ambu bag setup at HOB Breath Sounds: coarse Secretions: small white thin Assessment / Events: Received patient on PS 5 / +10 PEEP 60% FiO2 RR~16bpm Ve~14 Sating 91% Vt 870 EtCo2 25 Desat to 88 in rounds titrated to 70% Able to wean down to 50% later this afternoon Plan: Wean as tolerated, AMV, SBT protocols SpO2 goal >92% DADTTanisha Cao RD - 03/10/2020 1:11 PM EDT Nutrition Consult Note Jeison Cervantes is a 64 y.o. male admitted with acute hypoxic respiratory failure and recent h/o nausea, anorexia and myalgias, relevant medical history includes autoimmune necrotizing myopathy (currently on MTX, cellcept and steriods), and severe spinal stenosis. Reason for intervention: ICU Tube-feeding Nutrition Recommendations: Propofol at current rate provides ~491 kcal from lipids daily. Peptamen AF with a goal rate of 45 ml per hour plus 15 scoop(s) of protein powder daily. This rate is calculated to compensate for unplanned time off feedings due to potential procedures, etc. At goal, this will provide 900 ml formula, 1455 calories, 158 grams protein, 727 ml water from formula + 750 ml water from protein powder administration and 72% of RDI's for vitamins and minerals. Labs: Monitor Mg and Phos with daily BMP for now. Recommend checking triglycerides 1-2x/week while on propofol. I was able to discuss plan with provider Dr. Funez. All Active TF Orders: Tubefeeding Orders (From admission, onward) None Enteral access: OGT Oxygen Therapy/airway: O2 Device: Ventilator Lab Results Component Value Date NA 139 03/10/2020 K 3.8 03/10/2020 CL 103 03/10/2020 CO2 23 03/10/2020 BUN 22 (H) 03/10/2020 CREATININE 0.71 (L) 03/10/2020 GFRAA 115 03/10/2020 MAGNESIUM 0.79 03/08/2020 CALCIUM 9.2 03/10/2020 PHOS 3.0 03/08/2020 AST 35 03/08/2020 ALT 43 03/08/2020 ALKPHOS 54 03/08/2020 BILITOT 0.4 03/08/2020 BILIDIR 0.1 11/21/2019 CRP 1.8 01/23/2020 HA1C 8.8 (H) 03/08/2020 IRON 54 03/08/2020 Lab Results Component Value Date POCGLU 194 03/10/2020 POCGLU 243 (H) 03/10/2020 POCGLU 239 (H) 03/10/2020 POCGLU 202 (H) 03/10/2020 POCGLU 250 (H) 03/09/2020 POCGLU 222 (H) 03/09/2020 POCGLU 241 (H) 03/09/2020 Skin Status: Shift Pressure Injury Prevention Occiput: No Injury Thoracic Spine: No Injury Sacral: No Injury Ischial - left: No Injury Ischial - right: No Injury Heel - left: No Injury Heel - right: No Injury Elbow - left: No Injury Elbow - right: No Injury Device Sites: ETT, OG, O2 sat monitor, wrist restraints, SCD's/venodynes, IV sites, ECG Leads, BP Cuff Other Sites: ID band Relevant medications: Folic acid, humalog, protonix, prednisone, bactrim, lasix, propofol, KCl Last Bowel Movement: 03/07/20 I/O from last 2 shifts: Intake/Output Summary (Last 24 hours) at 03/10/2020 1311 Last data filed at 03/10/2020 1200 Gross per 24 hour Intake 2685 ml Output 1806 ml Net 879 ml Admit Weight: 103.6 kg Estimated body mass index is 32.77 kg/m?? as calculated from the following: Height as of this encounter: 177.8 cm (5' 10). Weight as of this encounter: 103.6 kg (228 lb 6.3 oz). [place] Body Weight: 75.5 kg Usual Body Weight: n/a Wt Readings from Last 10 Encounters: 03/08/20 103.6 kg (228 lb 6.3 oz) 02/09/20 102.1 kg (225 lb) 02/07/20 102.5 kg (226 lb) 01/23/20 104.3 kg (230 lb) 11/25/19 114.8 kg (253 lb) 11/21/19 114.3 kg (252 lb) 09/15/19 111.1 kg (245 lb) 08/15/19 109.8 kg (242 lb) 05/11/19 113.4 kg (250 lb) 03/29/19 114.3 kg (252 lb) Assessment: Nutrition intake and intake history/Interview: n/a Pt intubated and sedated. Per chart review patient had reported a 37 lb weight loss d/t muscle atrophy in both arms and legs. Pt reported eating more over this time to prevent further muscle wasting. Weight graph shows weight loss, but unable to confirm UBW at this time. Estimated needs: Calories: 9523-8963 (11-14 kcal/kg) Protein: 150 grams (2.0 g/kg IBW) Nutrition Focused Physical Exam (NFPE): Not performed Protein-calorie Malnutrition: Not identified (Luisito, JPEN J Parenteral Enteral Nutr. 2011;36(3): 273-83) Nutrition to continue to follow up while inpatient TANISHA CAO RD Pager #: [phone] Noy Mckeon MD - 03/10/2020 10:45 AM EDT MICU STAFF PROGRESS NOTE Critical Care Medicine Author: Noy Mckeon MD Patient seen and examined on critical care rounds. 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 DVT on Xarelto ROS: All other ROS are unremarkable except those mentioned above in interval events Exam: Last value Range last 24 hrs Temperature Temp: 36.5 ??C (97.7 ??F) Temp: [36.5 ??C (97.7 ??F)-36.7 ??C (98.1 ??F)] Heart Rate Heart Rate: 67 Heart Rate: [63-113] Blood Pressure BP: 107/66 BP: (96-151)/(57-89) Respiratory Rate Resp: 17 Resp: [10-25] SpO2 SpO2: 91 % SpO2: [91 %-100 %] Art BP BP (Arterial Line): -- Awake and interactive on 30 prop, writing clearly to us S1, S2, no murmurs, rubs or gallops CTA b/l--no coarse breath sounds Soft, non tender, non distended Warm extremities No obvious muscle wasting noted Labs/studies:Last 3 wbc, hgb, hct plt Recent Labs 03/10/204403/08/20219902/09/20 0911 WBC 10.3* 11.1* 8.0 HGB 9.7* 10.7* 14.7 HCT 28.6* 30.8* 44.1 PLATELET 256 252 105* Last 3 Lytes Recent Labs 03/10/204403/08/20219902/09/20 0911 NA 139 134* 137 K 3.8 3.6 4.8 CL 103 98 99 CO2 23 20* 26 BUN 22* 22* 26* CREATININE 0.71* 0.73* 0.79* Last 3 LFTs Recent Labs 03/08/20219902/09/20 0911 01/23/20 0853 11/21/19 0829 AST 35 18 37 40* ALT 43 75* 78* 33 ALKPHOS 54 37* 37* 37* BILITOT 0.4 0.5 0.7 0.5 BILIDIR -- -- -- 0.1 Last Ca, Mg, Phos Recent Labs 03/10/204403/08/202199 CALCIUM 9.2 9.6 PHOS -- 3.0 Last 3 Coags Recent Labs 03/08/202199 PT 16.2* INR 1.4 PTT 29 Last 3 ProBNP, Trop, CK Recent Labs 03/08/20 2200 CK 41 ASSESSMENT, MANAGEMENT, and DECISION MAKING: Mr. 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 He was started on Bactrim and steroids for treatment two nights ago, and intubated yesterday for the bronchoscopy. Since then, he has had high oxygen requirements and we have not been able to extubate him. I suspect that we will not be able to extubate him today, and so we will start tube feeds. Because he is getting so much fluid with the Bactrim and he is volume up, we willgive him gentle diuresis today since his Cr is okay. His sedation is minimal with propofol, and he is able to interact with us. For his DVT history, we will continue his Xarelto. We spoke to rheumatology, who is okay with holding his immunosuppression now. He will have follow upwith them about restarting these in the future. There is no evidence that he has any active myositisright now with normal CK. - Continue Bactrim and steroids - Remains intubated with such high settings, will try to liberate from ventilator as possible - Start TF today IS PATIENT CRITICALLY ILL ? Is there a high potential of sudden, clinically significant, or life threatening deterioration? Yes Is there a need for direct personal assessment and management to treat/prevent multiple vital organfailure/deterioration? Yes PATIENT IS CRITICALLY ILL WITH THESE DIAGNOSES BEING MANAGED BY CCS TEAM: Intubated for airway protection secondary to hypoxemia, needed bronchoscopy Pneumonia Unspecified organism Respiratory Failure Acute with hypoxia I personally performed 45 minutes of aggregate critical care time exclusive of procedures and teaching. This includes time spent during direct patient evaluation and reassessment, interpreting diagnostic tests, directing life and/or organ supporting interventions and documentation on the unit. Noy Mckeon MD DADTKellogShakeel goldstein DO - 03/10/2020 5:42 AM EDT CRITICAL CARE MEDICINE PROGRESS NOTE Patient info: Name: Jeison Cervantes : 1955 Date of Admission: 03/08/2020 ( Hospital Day 2 days ) Responsible Attending:Noy Mckeon MD ID: [id number] y.o. 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 Hospital Problem List: Acute hypoxemic respiratory failure Steroid induced hyperglycemia Deep Vein Thrombosis Necrotizing myopathy 24 Hour Events/Subjective: - intubated for bronchoscopy with BAL yesterday: PJP positive - complaining of pain overnight and started on prn dilaudid - remains intubated with increased O2 requirement overnight FiO2 50% -> 70%, vent settings this morning PS 10/5, 60% FiO2 - CXR unchanged; no pneumothorax Inpatient Medications: Scheduled Meds: ??? predniSONE 40 mg Oral BID Followed by ??? [START ON 03/15/2020] predniSONE 40 mg Oral Daily Followed by ??? [START ON 03/20/2020] predniSONE 20 mg Oral Daily ??? azithromycin 500 mg Intravenous Q24H ??? rivaroxaban 20 mg Oral Daily ??? chlorhexidine 15 mL Oral BID ??? folic acid 1 mg Oral Daily ??? insulin lispro 1-4 Units Subcutaneous Q4H KORINA ??? pantoprazole EC 40 mg Oral Daily ??? finasteride 5 mg Oral Daily ??? tamsulosin 0.4 mg Oral Daily ??? sulfamethoxazole-trimethoprim 15 mg/kg/day Intravenous Q6H KORINA Continuous Infusions: ??? propofoL 40 mcg/kg/min (03/10/20 0045) ??? NORepinephrine PRN Meds: HYDROmorphone, glucose 40% oral geL OR dextrose 10% OR glucagon (human recombinant) Vitals: Last value Range last 24 hrs Temperature Temp: 36.6 ??C (97.9 ??F) Temp: [36.5 ??C (97.7 ??F)-36.7 ??C (98.1 ??F)] Heart Rate Heart Rate: 72 Heart Rate: [65-113] Blood Pressure BP: 105/60 BP: (96-151)/(57-89) Respiratory Rate Resp: 20 Resp: [11-29] SpO2 SpO2: 92 % SpO2: [91 %-100 %] Ins/Outs: Intake/Output Summary (Last 24 hours) at 03/10/2020 0542 Last data filed at 03/10/2020 0400 Gross per 24 hour Intake 2116 ml Output 1025 ml Net 1091 ml Physical Exam: General: Intubated and sedated, RASS of -2 Cardiac: Normal S1 and S2, Regular rate and rhythm; No murmrs/gallops/rubs. Respiratory: Nonlabored. CTA in the anterior lung love Abd: obese, + BS; soft, non-tender, non-distended, no obvious masses. Ext: WWP without le edema, cyanosis or clubbing. DPP 2+ bilaterally. Labs: CBC: Recent Labs 03/10/204403/08/20219902/09/20 0911 WBC 10.3* 11.1* 8.0 HGB 9.7* 10.7* 14.7 PLATELET 256 252 105* Chemistry: Recent Labs 03/10/204403/08/20219902/09/20 0911 01/23/20 0853 NA 139 134* 137 138 K 3.8 3.6 4.8 4.5 CL 103 98 99 97* CO2 23 20* 26 29 BUN 22* 22* 26* 24* CREATININE 0.71* 0.73* 0.79* 0.83 GLUCOSE 199 -- 278* 170 Recent Labs 03/10/204403/08/20219902/09/20 0911 CALCIUM 9.2 9.6 9.8 MAGNESIUM -- 0.79 -- PHOS -- 3.0 -- LFT's: Recent Labs 03/08/20219902/09/20 0911 01/23/20 0853 11/21/19 0829 BILITOT 0.4 0.5 0.7 0.5 BILIDIR -- -- -- 0.1 ALBUMIN 2.8* 3.9 4.0 4.3 ALKPHOS 54 37* 37* 37* ALT 43 75* 78* 33 AST 35 18 37 40* Coags: Recent Labs 03/08/202199 PT 16.2* INR 1.4 PTT 29 Cardiac enzymes: Recent Labs 03/08/202200 01/28/20 0911 01/23/20 0853 CK 41 156 342* Heme: Recent Labs 03/08/202199 LDH 458* Microbiology: Resp Viral penal negative BAL cultures negative PCP smear + Pertinent radiology/diagnostic studies: CXR this morning reviewed. Assessment: 64 y.o. 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 Patient remains relatively stable, however has an ongoing high oxygen requirement and thus will be difficult to extubate today. CXR this am is unchanged from prior and this is likely all related to hisunderlying infectious process. However, given high volume load of bactrim, will try some lasix today. Today's Plan: - continue treatment for severe PJP PNA - stop azithromycin - lasix bolus today - wean FiO2 as able - start tube feeds today Plan: Neuro - No active issues CV - No active issues Pulm/ID #Acute hypoxemic respiratory failure: #PJP Pneumonia - SBT and extubate when able - Bronchoscopy yesterday with BAL, PJP positive, f/u on BAL cultures - Continue IV bactrim 15/mg/kg/day (03/08-present), will be a 21 day course - Continue 21 day Prednisone taper for PJP treatment: - PO prednisone 40mg BID for 5 days - PO prednisone 40mg QD for 5 days - PO prednisone 20mg QD for 11 days - stop atypical PNA coverage - Lasix bolus IV 03/10 - Follow-up Asperigillosis Ag and [id number] GI - No active issues Renal #BPH: - Continue finasteride and tamsulosin - insert dubois for 1L of urinary retention - bladder scans Heme #DVT: - c/w Xarelto 20mg qd #Chronic normocytic anemia: - consistent with anemia of chronic disease - Daily CBC Endo #Steroid induced hyperglycemia: - Sensitive sliding scale Rheum #Necrotizing myopathy: - Appreciate rheumatology recommendations - PT/OT - c/w PPI given chronic steroids Bundle: - DVT prophylaxis: Xarelto - GI prophylaxis: Protonix - Activity: As tolerated - Nutrition: Tube feeds - CODE STATUS: Full Code Shakeel Funez DO 03/10/20 7:05 AM Internal Medicine, PGY-2 Critical Care, #[id number] David Kamara RCP - 03/10/2020 2:26 AM EDTAMV Protocol: Yes SBT Protocol: Yes SBT: Not performed/Excluded: PEEP greater than 10 cmH2O Vent Settings: Ventilator Mode: PS/CPAP PEEP Set:10 FiO2: 60 % PSV: 5 Ventilator Measurements: Resp: 20 Vt Spontaneous: 742 Ve: 13.3 SpO2: 92 % EtCO2: 24 mmHg Airway: 8.0 @ 23 cm at the Teeth. Skin Integrity: WDL Breath Sounds: diminished Secretions: large amount of white/clear oral secretions Assessment / Events / Plan of the Day: Received intubated pt on PSV 12/8 on 60% FiO2 ~19:40 adjusted vent settings: PSV 5/8 on 50% FiO2 ~03:05 sustained desat to 80s -adjusted vent settings: PSV 5/10 on 70% Fi)2 -team notified, CXR obtained ~05:45 SpO2 was 97% -weaned FiO2 to 60% Plan: Continue to support pt within AMV protocol, wean settings as pt tolerated David Ruelas RCP Jh Schneider MD - 03/09/2020 7:27 PM EDTRheumatology Brief Progress Note PCP: Talon Constantino MD Jeison Cervantes is a 64 y.o. male who we are seeing for necrotizing myositis. Rheum History: # Rheumatology History ?? 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 - Then cramping in Left calf progressed to left thigh and over time to Rt leg- soreness and some weakness > left shoulder. LE> UE - Was evaluated by Neurology in [facility]- EMG was inconclusive- CK was up, 900. - Not on supplements, No travel, infections, statins/niacin/fibrates/red yeast rice. 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 - Evaluated by neurology [facility] [place]- Negative myositis panel, double-stranded DNA, rheumatoid factor, SSA, SSB. Noted a positive MICHAEL of 1: 160. Also, CK elevated to 1012. - Patient also underwent EMG nerve conduction studies with overall impression- Active denervation isconfined to Left Gastrocnemius muscle and no active EP evidence of Myopathic process. ?? - He also had an MRI of the thigh [...] or muscular dystrophy given no family history. Also, suspicion for mitochondrial disorders were low given stated that presentation later light in his last common. Anti-CM 1 a was obtained and was negative as well. ?? The patient underwent muscle biopsy on 12/16/[address] Leon esposito with biopsy site of the lowerextremity left. Per report Pathology was discussed with Dr. Basurto, path nondiagnostic but does show necrosing muscle fibers. ??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 ?? - Neurology started Rx for Necrotizing myopathy. - Started on IV IG X 5 days in April 2019 And had 2 day infusion in May 2019. Patient received steroids with infusion in May. - Patient reports he does not think IVIG helped, but IV steroids likely abated his symptoms. - IV IG was also cost prohibitive, and hence did not want to continue IV IG. - Seen by Neurology in Aug 2019 and was started on Prednisone taper starting at 30 mg PO daily and Cellcept 500 mg PO BID, the dose of which has been slowly up titrated in the past two months and currently up to 2000 mg PO daily. - PFTs and TTE in the past year have been normal. - Some improvement in Symptoms and temporal CK trending down. - Recurrence of muscle soreness and some weakness mostly in LE - Case presented in Muscle conference in November 2019 > Patient referred to Rheumatology- Seen in Rheum clinic in November- Baseline testing done- Started on MTX 15 mg weekly and Switched to Medrol 24 mg Brief HPI: Pt was evaluate at bedside with Dr. Hernandez. He was on sedation and on mechanical ventilation at the time of this evaluation. ROS (positives in bold): Gen: no fevers, no chills, no night sweats Pulm: no SOB CV: no CP Abd: no abd pain, no nausea, no vomiting, no diarrhea MSK: see HPI Meds and Allergies: Reviewed in eDH Physical exam: BP 112/70 (Patient Position: Lying) Pulse 79 Temp 36.6 ??C (97.9 ??F) (Oral) Resp 16 Ht 177.8 cm (5' 10) Wt 103.6 kg (228 lb 6.3 oz) SpO2 97% BMI 32.77 kg/m?? Gen: currently on mechanical ventilation Heart: RRR Lung: coarse breath sounds bilaterally Skin: no rheumatologic rash appreciated Brief MSK: normal tone Labs/Studies: Reviewed. Assessment/Plan: 1) Hypoxic Respiratory Failure DDx includes infectious vs autoimmune. Pt has been on chronic prednisone for necrotizing myositis. Given the relatively rapid decline in clinical status, we do favor an infectious etiology over an autoimmune etiology. - He has been on MTX 15mg weekly, medrol 28mg daily with a normal CPK. Physical exam revealed a normal tone without any rheumatologic rash. Given the nl CPK and nl tone, it is unlikely to be active necrotizing myositis, especially since it tends to flare with CPK in the thousands. - given that he has been on medrol chronically, he is at an increased risk for opportunistic infections including PJP. However, he has been on a rapid pred taper since he has been going through an evaluation for possible lumbar surgery for spinal stenosis. He has been on <16mg of medrol for the past 6 weeks and just recently has been increased. For a significant amount of time he did not require PJP prophylaxis. Infectious ddx can also includes atypical pna, viral pna and CAP. Plan: - Agree with holding immunosuppressive agents for now - will follow up on BAL cx and blood cx - we will continue to follow Mr. Cervantes Patient was discussed with Dr. David Dumont MD Rheumatology Fellow Pager: [phone] Associated attestation - Suzy Hernandez DO - 03/12/2020 8:42 AM EDT ATTENDING ADDENDUM The patient's history was reviewed, and I interviewed and examined the patient with Dr. Dumont. I agree with his summary, findings, and plan. Alley Galeas RCP - 03/09/2020 4:06 PM EDTAMV Protocol: Yes SBT Protocol: Yes Vent Settings: Ventilator Mode: PS/CPAP PEEP Set: 8 FiO2: 60 % PSV: (S) 12 Ventilator Measurements: Resp: 25 Vt Spontaneous: 686 Ve: 16.3 SpO2: 96 % EtCO2: 27 mmHg Airway: 8.0 @ 23 cm at the Teeth. Skin Integrity: WDL Breath Sounds: Diminished Secretions: VERONIQUE Assessment / Events / Plan of the Day: I received Jeison this morning on HFNC at 35L/50-60%. He was intubated late this afternoon for a bronch and has remained intubated since. He was initially placed on VC 580(8cc/kg) x14 +8 60% and was transitioned to PS a few hours later to the settings above. Alley Galeas RCP Noy berger MD - 03/09/2020 7:39 AM EDT MICU STAFF PROGRESS NOTE Critical Care Medicine Author: Noy Mckeon MD Patient seen and examined on critical care rounds. INTERVAL EVENTS: - Rested overnight on HFNC - Intubated and bronched today Active problems: Acute hypoxemic respiratory failure Autoimmune necrotizing myopathy DVT on Xarelto ROS: All other ROS are unremarkable except those mentioned above in interval events Exam: Last value Range last 24 hrs Temperature Temp: 36.7 ??C (98.1 ??F) Temp: [36.6 ??C (97.9 ??F)-36.8 ??C (98.3 ??F)] Heart Rate Heart Rate: 76 Heart Rate: [76-117] Blood Pressure BP: 133/80 BP: (133-145)/(70-87) Respiratory Rate Resp: 18 Resp: [18-30] SpO2 SpO2: 93 % SpO2: [90 %-100 %] Art BP BP (Arterial Line): -- AAOx3, interactive, understanding the situation and asking good questions S1, S2, no murmurs, rubs or gallops CTA b/l--no coarse breath sounds Soft, non tender, non distended Warm extremities No obvious muscle wasting noted Labs/studies:Last 3 wbc, hgb, hct plt Recent Labs 03/08/20219902/09/20 0911 11/21/19 0829 WBC 11.1* 8.0 7.6 HGB 10.7* 14.7 15.1 HCT 30.8* 44.1 45.8 PLATELET 252 105* 227 Last 3 Lytes Recent Labs 03/08/20219902/09/20 0911 01/23/20 0853 NA 134* 137 138 K 3.6 4.8 4.5 CL 98 99 97* CO2 20* 26 29 BUN 22* 26* 24* CREATININE 0.73* 0.79* 0.83 Last 3 LFTs Recent Labs 03/08/20219902/09/20 0911 01/23/20 0853 11/21/19 0829 AST 35 18 37 40* ALT 43 75* 78* 33 ALKPHOS 54 37* 37* 37* BILITOT 0.4 0.5 0.7 0.5 BILIDIR -- -- -- 0.1 Last Ca, Mg, Phos Recent Labs 03/08/202199 CALCIUM 9.6 PHOS 3.0 Last 3 Coags Recent Labs 03/08/20 2200 PT 16.2* INR 1.4 PTT 29 Last 3 ProBNP, Trop, CK Recent Labs 03/08/20 220 CK 41 ASSESSMENT, MANAGEMENT, and DECISION MAKING: IVIG not helpful, steroids helped initially, symptoms returned when tapered. CK trended down with MTX and steroids. Lost 37 pounds since starting steroids over the last three months. Generalized muscleatrophy. Last , had sudden onset of shortness of breath. Was not short of breath before this. Presented to [facility] with fever to 38.8, tachypneic. Started on pip/tazo, vancomycin, and levaquin. Started on steroids as well. CT of his chest shows bilateral infiltrates that could represent infection. I favor an infectious diagnosis, specifically PCP, though other organisms are possible. Currently onBactrim, prednisone for PJP treatment, levaquin for atypical PNA. Pending are legionella urine ag, bronch studies of fungal stain and culture, bacterial culture, cell count and differential, PJP stain,cytology. Holding MTX and cellcept for his necrotizing myopathy. Protonix GI PPX, will restart apixiban tonight. - After bronch, will try to wean ventilator and extubate if possible IS PATIENT CRITICALLY ILL ? Is there a high potential of sudden, clinically significant, or life threatening deterioration? Yes Is there a need for direct personal assessment and management to treat/prevent multiple vital organfailure/deterioration? Yes PATIENT IS CRITICALLY ILL WITH THESE DIAGNOSES BEING MANAGED BY CCS TEAM: Intubated for airway protection secondary to hypoxemia, needed bronchoscopy Pneumonia Unspecified organism Respiratory Failure Acute with hypoxia I personally performed 45 minutes of aggregate critical care time exclusive of procedures and teaching. This includes time spent during direct patient evaluation and reassessment, interpreting diagnostic tests, directing life and/or organ supporting interventions and documentation on the unit. Noy Mckeon MD DADTEssence Carcamo MD - 03/09/2020 7:11 AM EDT CRITICAL CARE MEDICINE PROGRESS NOTE Patient info: Name: Jeison Cervantes : 1955 Date of Admission: 03/08/2020 ( Hospital Day 1 day ) Responsible Attending:Noy Mckeon MD ID: 64 y.o. 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 Hospital Problem List: Acute hypoxemic respiratory failure Steroid induced hyperglycemia Deep Vein Thrombosis Necrotizing myopathy 24 Hour Events/Subjective: - HFNC weaned overnight from 100% to 50% - Reports feeling well this morning on HFNC Inpatient Medications: Scheduled Meds: ??? folic acid 1 mg Oral Daily ??? insulin lispro 1-4 Units Subcutaneous Q4H KORINA ??? methylPREDNISolone 40 mg Intravenous Q8H KORINA ??? levoFLOXacin 750 mg Oral QAM ??? pantoprazole EC 40 mg Oral Daily ??? finasteride 5 mg Oral Daily ??? tamsulosin 0.4 mg Oral Daily ??? sulfamethoxazole-trimethoprim 15 mg/kg/day Intravenous Q6H KORINA Continuous Infusions: PRN Meds: glucose 40% oral geL OR dextrose 10% OR glucagon (human recombinant) Vitals: Last value Range last 24 hrs Temperature Temp: 36.7 ??C (98.1 ??F) Temp: [36.6 ??C (97.9 ??F)-36.8 ??C (98.3 ??F)] Heart Rate Heart Rate: 76 Heart Rate: [76-117] Blood Pressure BP: 133/80 BP: (133-145)/(70-87) Respiratory Rate Resp: 18 Resp: [18-30] SpO2 SpO2: 93 % SpO2: [90 %-100 %] Ins/Outs: Intake/Output Summary (Last 24 hours) at 03/09/2020 0711 Last data filed at 03/09/2020 0600 Gross per 24 hour Intake 390 ml Output 960 ml Net -570 ml Physical Exam: General: Pleasant, alert, appropriate, in NAD. Appears stated age. Lymph: No obvious cervical LAD Cardiac: Normal S1 and S2, Regular rate and rhythm; No murmrs/gallops/rubs. Respiratory: Nonlabored. Remarkably mostly clear in the upper lung love, with some faint cracklesb/l at the bases Abd: obese, + BS; soft, non-tender, non-distended, no obvious masses. Ext: WWP without le edema, cyanosis or clubbing. DPP 2+ bilaterally. Neuro: II-XII grossly intact. Alert and orientated, no-focal deficits, no proximal muscle tenderness, 5/5 strength in hip flexion b/l Labs: CBC: Recent Labs 03/08/20219902/09/20 0911 11/21/19 0829 WBC 11.1* 8.0 7.6 HGB 10.7* 14.7 15.1 PLATELET 252 105* 227 Chemistry: Recent Labs 03/08/20219902/09/20 0911 01/23/20 0853 11/25/19 1106 NA 134* 137 138 137 K 3.6 4.8 4.5 4.3 CL 98 99 97* 101 CO2 20* 26 29 24 BUN 22* 26* 24* 18 CREATININE 0.73* 0.79* 0.83 0.89 GLUCOSE -- 278* 170 147 Recent Labs 03/08/20219902/09/20 0911 01/23/20 0853 CALCIUM 9.6 9.8 9.7 MAGNESIUM 0.79 -- -- PHOS 3.0 -- -- LFT's: Recent Labs 03/08/20219902/09/20 0911 01/23/20 0853 11/21/19 0829 BILITOT 0.4 0.5 0.7 0.5 BILIDIR -- -- -- 0.1 ALBUMIN 2.8* 3.9 4.0 4.3 ALKPHOS 54 37* 37* 37* ALT 43 75* 78* 33 AST 35 18 37 40* Coags: Recent Labs 03/08/202199 PT 16.2* INR 1.4 PTT 29 Cardiac enzymes: Recent Labs 03/08/20219902/09/20 0911 01/23/20 0853 CK 41 156 342* Heme: Recent Labs 03/08/202199 LDH 458* Microbiology: None new Pertinent radiology/diagnostic studies: None new Assessment: 64 y.o. male with autoimmune necrotizing myopathy (currently on MTX, cellcept and steroids), severe spinal stenosis of L3-L4, DVT (on xarelto) who presents in transfer to MICU from [facility] with acute hypoxemic respiratory failure. Patient continues to require HFNC and desaturates with minor movements. Therefore, will consider bronchoscopy in order to make definitive diagnosis of infectious (PJP versus atypical) versus autoimmune lung disease. Plan: Neuro - No active issues CV - No active issues Pulm/ID #Acute hypoxic respiratory failure: #Diffuse airspace opacity on CT - Currently stable on HFNC wean FiO2 as able - Bronchoscopy today with BAL - Continue IV bactrim 15/mg/kg/day (03/08-present) - Transition IV Solumedrol 40mg Q8H -> PO prednisone 40mg BID -> 40mg QD - > 20mg QD - Continue Levaquin 750 mg QD - Resp viral penal pending - Sputum cultures, PJP stain, fungal cultures, sputum cultures - Follow-up legionella urine Ag - Follow-up Asperigillosis Ag and [id number] GI - No active issues Renal #BPH: - Continue finasteride and tamsulosin Heme #DVT: - Restart Xarelto #Chronic normocytic anemia: - Follow-up iron panel - Daily CBC Endo #Steroid induced hyperglycemia: - Sensitive sliding scale - HgA1c Rheum #Necrotizing myopathy: - Appreciate rheumatology recommendations - PT/OT - Start PPI given chronic steroids Bundle: - DVT prophylaxis: Xarelo - GI prophylaxis: Protonix - Activity: As tolerated - Nutrition: Carb control after bronchoscopy - CODE STATUS: Full Code Essence Carcamo MD Internal Medicine, PGY-3 Critical Care, #[id number] Associated attestation - Noy Mckeon MD - 03/09/2020 3:36 PM EDTI have seen and examined the patient and I am in agreement with the plan. Please see my daily note for further discussion. MD Adonis Montiel Lindsey M, RCP - 03/09/2020 4:10 AM EDTRespiratory Therapy Humidified High Flow Note INDICATIONS: High O2 requirement HIGH FLOW SETTINGS: Interface: High flow nasal cannula Flow: 35 L/min FiO2: 60 % VITAL SIGNS: HR: 76 RR: 19 SpO2: 94 % SKIN ASSESSMENT: Nares Assessment WDL: WDL BREATH SOUNDS: crackles at bases ASSESSMENT: Patient arrived via EMS on NRB, had been on HFNC at OSH. Placed on 35L 100% initially while getting patient settled. Able to wean down to 60% once situated in bed. PLAN: Preoxygenate prior to ambulation. Possible bronchoscopy today. Dolores Lamb RCP Jaime Cooley MD - 03/08/2020 10:02 PM EDT MICU STAFF PROGRESS NOTE Critical Care Medicine Author: JAIME COOLEY Patient seen and examined on admission to critical care. One week severe dyspnea, no cough or sputum, decreased oral intake. ER yesterday, febrile, CT bilateral opacities. Normal WBC but lymphopenic, albumin 2.5, renal function pro BNP and tropinin normal. COVID PCR negative. Ferritin 1999. No CK measured (but was 156 end of January) CRP 22, Cr 0.8. PH 7.5, pCO2 30. Treated with zosyn, vancomycin, levofloxacin. Myopathy has been ok from a pain perspective recently but has lost 37 pounds in last 3 months. Treated with steroid (>20mg prednisone or equivalent for 8 months) as well as MMF, MTX - no PJP prophylaxis. Hx spinal stenosis and prior DVT Active problems: Hypoxemic respiratory failure Bilateral pulmonary opacities: suspect Infectious > Inflammatory Autoimmune necrotizing myopathy MICHAEL 1:160, CK 1000, other serology negative, necrosis on muscle biopsy 2018. Exam: Last value Range last 24 hrs Temperature Temp: 36.8 ??C (98.3 ??F) Temp: [36.8 ??C (98.3 ??F)] Heart Rate Heart Rate: (!) 109 Heart Rate: [109-117] Blood Pressure BP: 134/83 BP: (134)/(83) Respiratory Rate Resp: 26 Resp: [23-26] SpO2 SpO2: 95 % SpO2: [94 %-95 %] Art BP BP (Arterial Line): -- HFNC, FiO2 0.8 - Sats 98%, RR 18 Non toxic appearance Few crackles lower zones - clear anteriorly Not clubbed, no edema, no cyanosis No intake or output data in the 24 hours ending 03/08/202201 Current Drips: Scheduled: ??? [START ON 03/09/2020] folic acid 1 mg Oral Daily ??? [START ON 03/09/2020] insulin lispro 1-4 Units Subcutaneous Q4H KORINA PRN: glucose 40% oral geL OR dextrose 10% OR glucagon (human recombinant) Labs/studies: Local hospital data - as per HPI CT Chest reviewed. Essentially normal lungs [address] EKG and labs pending ASSESSMENT, MANAGEMENT, and DECISION MAKING: Acute onset respiratory illness leading to significant hypoxemia. Acuity most suggestive of infection and recent normal CK argues against this being inflammatory related. PJP leads the differential although legionella, viral pneumonia or even a fungal infection such as invasive aspergillosis, cryptoc occal pneumonia / histo / blasto could have this appearance (few nodules in bases). His oxygen requirement is high but I think no immediate need for intubation. Would like to see repeat COVID test prior to any airway procedures. Will treat empirically with Bactrim tonight and provisionally plan for bronchoscopy tomorrow (would need to be intubated for procedure and an immediate extubation post bronch may not be straightforward given his oxygen requirements. Await labs and EKG Check CK Can check LDH Await repeat COVID-19 test Respiratory viral panel Aspergillus serum antigen Serum beta D-glucan Legionella urine antigen Expectorated sputum for PJP testing Solumedrol 40mg IV q8h for now (if CK normal can decrease to 40mg daily) IV bactrim dosed for PJP (can use oral if IV not available) start now Levofloxacin 750mg q24h, next dose 8am 03/09 Keep NPO PPI (penitentiary steroid use) Hold Xarelto (last dose 7pm 03/08/2020) IS PATIENT CRITICALLY ILL ? Is there a high potential of sudden, clinically significant, or life threatening deterioration? Yes Is there a need for direct personal assessment and management to treat/prevent multiple vital organfailure/deterioration? Yes If this patient is not critically ill, I certify the patient requires continued in-patient hospitalization for [] PATIENT IS CRITICALLY ILL WITH THESE DIAGNOSES BEING MANAGED BY [facility] TEAM: Pneumonia Unspecified organism Respiratory Failure Acute with hypoxia I personally performed 60 minutes of aggregate critical care time exclusive of procedures and teaching. This includes time spent during direct patient evaluation and reassessment, interpreting diagnostic tests, directing life and/or organ supporting interventions and documentation on the unit. Jaime Cooley MD 03/08/2020 10:02 PM documented in this encounter H&P Notes Dori Peña MD - 03/18/2020 4:01 PM EDT Hospital Medicine History and Physical Patient info: Name: Jeison Cervantes : 1955 PCP: Talon Constantino MD PCP phone number: [phone] Date of Admission: 03/08/2020 ( Hospital Day 10 days ) Responsible Attending:Raymond Hernandez, DO Active Hospital Problems Diagnosis ??? Acute hypoxemic respiratory failure Resolved Hospital Problems No resolved problems to display. Active Non-Hospital Problems Diagnosis ??? Spinal stenosis of lumbar region ??? Muscle weakness of lower extremity ??? Venous insufficiency of left lower extremity ??? Asymptomatic varicose veins of left lower extremity ID: Jeison Cervantes is a 64 y.o. male w/ PMH of autoimmune necrotizing myopathy (treated with methotrexate, cellcept,??and chronic steroids), severe spinal stenosis of L3-L4, DVT (on xarelto) on HD# 10 for hypoxemic respiratory failure secondary to PJP pneumonia HPI: The patient began having muscle pains in his legs 3 years ago when he was found to have multiple DVTs for which he was treated with xarelto. When the muscle pain worsened and began to spread up his legs, he began following with a neurologist and district wildlife manager. He was eventually diagnosed with necrotizing myopathy and was initially treated with a course of IVIG. The patient did not feel this was helpful. He was then started on prednisone cellcept and methotrexate. During this time period the patientalso reports that he has lost about 40 lbs and believes it is all muscle. He was in the process of tapering his steroids for a back procedure, when he began to have severe SOB and presenting to an outside hospital. He since was transferred to [facility] and admitted to the ICU where he was diagnosed with hypoxic respiratory failure 2/2 PJP PNA. In the ICU he was intubated on 03/09 and extubated on 03/11. Hecontinues to have high oxygen requirements and is currently on 6L NC. In the ICU he was also startedon a prednisone taper and Bactrim IV, but since has been transitioned to PO. ?? ROS: Positive findings are BOLDED. GEN: Fever, chills, fatigue, nocturnal hyperhydrosis, unexpected weight change, anorexia. HEENT: Change in vision, hearing, smell, taste. Pharyngodynia, rhinorrhea. CV: chest pain, palpitations, orthopnea, paroxysmal noctural dyspnea, claudication PULM: dyspnea, cough, wheezing, sputum production ABD: abdominal pain, dysphagia, odynophagia, nausea, vomiting, diarrhea, constipation, melena, hematochezia. : dysuria, hematuria, difficulty voiding NEURO: anesthesia, paresthesia, asymmetric weakness, headache, photophobia, or phonophobia. SKIN: rashes, ulcers HEM: Bleeding, bruising, history of blood clots MSK: arthralgia, arthritis, myalgia, history of bone fracture, history of hip fracture in parent. PSYCH: Depression, anhedonia, suicidal ideation, homicidal ideation Past Medical History: Diagnosis Date ??? 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 Venous insufficiency of left lower extremity 05/04/2018 Past Surgical History: Procedure Laterality Date ??? PRO BIOPSY MUSCLE DEEP Left 12/16/2018 BIOPSY OF MUSCLE, DEEP, LOWER EXTREMITY (WRVU 2.35) performed by Leon Osuna MD at [facility] No family history on file. Social History Socioeconomic History ??? Marital status: [...] file Gets together: Not on file Attends [employer] service: Not on file Active member of [...] Social History Narrative ??? Not on file Medications Prior to Admission Medication Sig Dispense Refill Last Dose ??? methylPREDNISolone (methylPRED DP) 4 mg Tablets, Dose Pack Take by mouth See Admin Instructions. 5 tablets daily Taking ??? FINASTERIDE ORAL Take 5 mg by mouth daily. Taking ??? magnesium 250 mg Tablet Take 500 mg by mouth daily. Taking ??? calcium carbonate 648 mg calcium Tablet Take 650 mg by mouth 3 times daily (with meals). Taking ??? cholecalciferol, Vitamin D3, (cholecalciferol, Vitamin D3,) 50 mcg (2,000 unit) Capsule Take bymouth. Taking ??? folic acid (Folvite) 1 mg Tablet Take 1 tablet by mouth daily. (Patient taking differently: Take3 mg by mouth 3 times daily.) 90 tablet 3 Taking ??? metHOTREXate 2.5 mg Tablet Take 6 tablets by mouth once a week. 24 tablet 3 Taking ??? Xarelto 20 mg Tablet Take 20 mg by mouth daily. Taking ??? mycophenolate (CELLCEPT) 500 mg Tablet Take 2 tablets by mouth 2 times daily. 120 tablet 5 Taking ??? tamsulosin (FLOMAX) 0.4 mg Capsule Take 0.4 mg by mouth daily. Taking ??? ibuprofen (ADVIL;MOTRIN) 400 mg Tablet Take 400 mg by mouth every 6 hours as needed for Pain. Taking Allergies Allergen Reactions ??? Cat Dander ??? Dog Dander ??? Hay [Grass Pollen-[place], Standard] Objective: Vitals Last value Range last 24 hrs Temperature Temp: 35.5 ??C (95.9 ??F) Temp: [35.5 ??C (95.9 ??F)-37.4 ??C (99.3 ??F)] Heart Rate Heart Rate: 91 Heart Rate: [69-97] Blood Pressure BP: 120/76 BP: (94-120)/(57-76) Art Line BP BP (Arterial Line): -- MAP (NBP): [67 mmHg-85 mmHg] Respiratory Rate Resp: 26 Resp: [13-26] SpO2 SpO2: 94 % SpO2: [87 %-99 %] Oxygen Delivery Oxygen Therapy O2 Device: Nasal cannula O2 Flow Rate (L/min): 5 L/min FiO2 (%): 60 % Intake/Output Summary (Last 24 hours) at 03/18/2020 1750 Last data filed at 03/18/2020 1615 Gross per 24 hour Intake 370 ml Output 1335 ml Net -965 ml Patient Vitals for the past 168 hrs: Weight 03/17/20 0600 95.1 kg (209 lb 10.5 oz) 03/16/20 0600 98 kg (216 lb 0.8 oz) 03/15/20 0600 104.3 kg (229 lb 15 oz) 03/13/20 0000 105.5 kg (232 lb 9.4 oz) Admit wt: 103.6 kg Physical Exam: Gen: NAD. HEENT:NC/AT. Anicteric. Non-injected. oropharynx nonerythematous CV: RRR. Normal S1 and S2. No M/R/G. Pulm: clear to ascultation bilaterally in the posterior lung love. Abd: bowel sounds present, Soft, nondistended, nontender. Ext: no edema, clubbing, or cyanosis. MSK: b/l atrophy of quadriceps Neuro: alert and appropriate. Non-focal. Grossly intact. Psych: cooperative. Lines/Tubes/Drains Peripheral IV Line - Single Lumen 03/10/20 1753 median vein (underside of arm), right 22 gauge;1 in length;3/4 in length (Active) Indication/Daily Review of Necessity fluid therapy intermittent;medication therapy intermittent 03/18/2020 8:00 AM Site Preparation/Maintenance dressing: dry and intact 03/18/2020 4:00 PM Securement catheter stabilization device, secured with 03/18/2020 8:00 AM Patency/Maintenance flushed without difficulty;blood return, unable to obtain 03/18/2020 8:00 AM Phlebitis 0-->no symptoms 03/18/2020 4:00 PM Infiltration 0-->no symptoms 03/18/2020 4:00 PM Site Signs/Symptoms no redness;no warmth;no swelling;no pain;no palpable cord;no streak formation;nodrainage 03/18/2020 8:00 AM Number of days: 7 Medications: ??? polyethylene glycoL (MIRALAX) oral powder 17 g Oral BID ### ??? sodium chloride 1 g Oral TID ### ??? insulin lispro 3-12 Units Subcutaneous Q4H KORINA ### ??? insulin glargine 5 Units Subcutaneous Q24H ### ??? senna-docusate 2 tablet Oral BID ### ??? sulfamethoxazole-trimethoprim DS 3 tablet Oral BID ### And ??? sulfamethoxazole-trimethoprim DS 4 tablet Oral Nightly ### ??? melatonin 6 mg Oral Nightly ### ??? predniSONE 40 mg Oral Daily ### Followed by ??? [START ON 03/20/2020] predniSONE 20 mg Oral Daily ### ??? rivaroxaban 20 mg Oral Daily ### ??? folic acid 1 mg Oral Daily ### ??? finasteride 5 mg Oral Daily ### ??? tamsulosin 0.4 mg Oral Daily ### glucose 40% oral geL OR dextrose 10% OR glucagon (human recombinant), ondansetron, bisacodyL, acetaminophen Labs: CBC: Recent Labs 03/18/20 0500 03/17/20 0122 03/16/20 0212 WBC 8.6 7.7 6.7 HGB 11.0* 10.1* 10.2* HCT 33.0* 30.5* 29.8* PLATELET 273 259 244 NEUTROABS 7.22* 6.63* 5.94 Chemistry: Recent Labs 03/18/20 0500 03/17/20 0122 03/16/20 0212 03/10/20 0045 02/09/20 0911 01/23/20 0853 NA 129* 130* 130* < > 139 < > 137 138 K 4.7 4.9 4.7 < > 3.8 < > 4.8 4.5 CL 91* 92* 93* < > 103 < > 99 97* CO2 29 25 26 < > 23 < > 26 29 BUN 22* 19 19 < > 22* < > 26* 24* CREATININE 0.71* 0.64* 0.56* < > 0.71* < > 0.79* 0.83 GLUCOSE -- -- -- -- 199 -- 278* 170 ANIONGAP 9 13 11 < > 13 < > 12 12 < > = values in this interval not displayed. Recent Labs 03/18/20 0500 03/17/20 0122 03/16/20 0212 03/15/20 0040 03/08/202199 CALCIUM 9.5 9.4 9.2 9.3 < > 9.6 MAGNESIUM -- -- -- 0.89 -- 0.79 PHOS -- -- -- 3.1 -- 3.0 < > = values in this interval not displayed. LFT's: Recent Labs 03/08/20219902/09/20 0911 01/23/20 0853 11/21/19 0829 BILITOT 0.4 0.5 0.7 0.5 BILIDIR -- -- -- 0.1 ALBUMIN 2.8* 3.9 4.0 4.3 ALKPHOS 54 37* 37* 37* ALT 43 75* 78* 33 AST 35 18 37 40* Cardiac enzymes: Recent Labs 03/15/20 0040 03/12/20 0045 03/08/20219902/09/20 0911 CK 25 -- 41 156 PROBNP -- 80 -- -- Endocrine: No results for input(s): TSH, CORTISOL in the last 7068 hours. Invalid input(s): [id number] Recent Labs 03/08/202199 HA1C 8.8* Heme: No results for input(s): LDH, HAPTOGLOBIN, URICACID in the last 168 hours. ABG: ABG (Arterial Blood Gas) No results found for: PHART, PO2ART, [id number], [id number] Microbiology: Site Date and Time Obtained Result Notes Pertinent radiology/diagnostic studies: Results for orders placed or performed during the hospital encounter of 03/08/20 XR Abdomen 1 view (Generic) (Exam End: 03/09/2020 9:40 PM) Impression OG tube tip in the proximal stomach with sidehole at the distal esophagus. Thank you for letting us participate in the care of this patient. For questions regarding this report, please contact the number below. Abdomen 1 view (Generic) (Exam End: 03/10/2020 1:28 AM) Impression OG tube terminates within the stomach, with sidehole past the GE junction. Thank you for letting us participate in the care of this patient. For questions regarding this report, please contact the number below. Chest One View (Exam End: 03/10/2020 4:03 AM) Impression Grossly unchanged multifocal pulmonary opacities that may represent any combination of pulmonary edema, ARDS, and/or atypical/multifocal pneumonia. I have personally reviewed the image(s) and the resident's interpretation and agree with the findings, Yanet Connell at 03/10/2020 4:25 AM Thank you for letting us participate in the care of this patient. For questions regarding this report, please contact the number below. Chest One View (Exam End: 03/11/2020 11:43 PM) Impression No significant interval change in the multifocal pulmonary opacities. Thank you for letting us participate in the care of this patient. For questions regarding this report, please contact the number below. Abdomen 1 view (Generic) (Exam End: 03/15/2020 9:54 AM) Impression Normal bowel gas pattern. Thank you for letting us participate in the care of this patient. For questions regarding this report, please contact the number below. SSMENT/PLAN: Jeison Cervantes is a 64 y.o. male w/ PMH of autoimmune necrotizing myopathy (treated with methotrexate, cellcept,??and chronic steroids), severe spinal stenosis of L3-L4, DVT (on xarelto) on HD# 10 for hypoxemic respiratory failure secondary to PJP pneumonia #hypoxic respiratory failure 2/2 PJP PNA -NC currently at 5L -Goal SpO2 above 92% -Cont. PO bactrim -BiPAP available PRN #Nectrotizing myopathy #muscular atrophy -Hold immunosuppressive for now (cellcept, MXT) #Urinary retention -Dubois inplace -f/u UA -cont. Finasteride -cont. flomax #prediabetes -Continue glargine and SSI #Routine PPX -DVT: continue xarelto - GI: Summery of Glc management: Diet: regular CODE Status: full Dori Peña MD, PGY-1 03/18/2020 Hospital Medicine # [id number] Associated attestation - Raymond eHrnandez DO - 03/18/2020 10:03 PM EDTHospital Medicine Attending Attestation: Patient seen and examined independently. Available diagnostic testing reviewed. Management and plan for today reviewed with Dr. Peña. I agree with the findings and plans as documented in their note with any additions and/or corrections noted below. P LING pneumonia in the setting of immunosuppression for necrotizing myopathy. Continue on Bactrim tocomplete a 21-day course. Improving, though still requiring significant amount of oxygen supplementation to maintain adequate SaO2. Continue attempts to wean and mobilize. Suspect he will need rehabi litation and awaiting PT/OT evaluations. I have examined the patient myself and personally reviewed all studies. In addition, I certify thatI am a [facility] credentialed attending provider with admitting privileges and that the patient meets or has met medical necessity to require an inpatient IPI level of care meeting a minimum of two midnightsor is on the [facility] inpatient only procedure list (status C) due to: acute respiratory compromise and/or hypoxia requiring assessment every 4 hours and the ability to respond immediately to the patient's need and PJP pneumonia Raymond Hernandez DO Pager [phone] 03/18/2020 10:00 PMKelloggShakeel DO - 03/08/2020 8:49 PM EDT Critical Care Medicine Admission History and Physical Patient Name: Jeison Cervantes Service: Critical Care Medicine - [place] Team Responsible Attending: Noy Mckeon MD, MD PCP: Talon Constantino MD PCP phone #: [phone] Chief Complaint: Acute hypoxemic respiratory failure Patient ID: Jeison Cervantes is a 64 yr old M with a PMHx significant for autoimmune necrotizing myopathy (currently on MTX, cellcept and steroids), severe spinal stenosis of L3-L4, DVT (on xarelto) who presents in transfer to MICU from [facility] with acute hypoxemic respiratory failure. History of Present Illness: Channing presented to [facility] yesterday with SOB, nausea, anorexia and myalgias. He reports that his functional status is limited at baseline due to leg weakness, but not breathing issues. He was working with PT a week ago and breathing felt well. The following day he subsequently developed a sudden onset lot of sob and had to lay in bed all day. [place], like his diaphragm was weak and he could not take a whole breath in. He tried to fight though it over the weekend, but symptoms were not getting better so he presented to OSH. During this, he denies any cough or chest pain. He has been taking his temperature and never had a fever. His only other acute symptom was of anorexia, nausea. Denied any sick contacts, and no recent travel. In the ER patient was initially febrile (38.8), tachypneic to 34 and saturating in the low 90s on 4LNC. Started on pip- tazo and vanco and levaquin for presumed pneumonia. Of note, patient is being treated my neurology and rheumatology for this necrotizing myopathy. He was initially treated with a course of IVIG, but per patient this was not helpful for his symptoms and too expensive. Thus, he was started on prednisone 40mg qd and cellcept 500mg bid in 08/2019, which improved his CK and his symptoms somewhat, but as prednisone was tapered to 20mg his symptoms slowly returned and his was referred to rheum in 11/2019. At this time he was started on MTX 15mg q weekly and steroid was switched to medrol 24mg qd with plan to taper off steroids as DMARD took effect. Over this time his CK trended down and had no cramping symptoms, however reports that he has lost 37 lbs and believes it is all muscle atrophy including both arms and legs. He reports eating more over this timeto try to prevent the muscle wasting. But otherwise denies any exertional sob, however functional status is limited by myopathy. OSH labs prior to transfer: WBC: 7.28 -> absolute lymphopenia Hgb: 12.6 Plt 230 BNP unremarkable, Bicarb of 25 CMP mostly unremarkable, albumin of 2.5 Negative troponin AB.5/28/63 -> 7.45/33/73 on 40% FiO2 Lactate 2.2 -> 1.3 Ferritin 1978 CRP 23 BNP 43 Covid PCR was negative Blood cultures taken 03/07 pending PFTs in : Normal spirometry, normal lung volumes, normal diffusion capacity CT C/A/P 02/18/2020: IMPRESSION 1. 3 indeterminate pulmonary nodular densities, ranging in size from 10 to 13 mm. Although these may be areas of inflammatory/infectious etiology, neoplasm cannot be totally excluded. Would recommend a close interval follow-up chest CT in one to 2 months. Review of Systems: Negative other than stated above in HPI Problem List/Past Medical History Patient Active Problem List Diagnosis ??? Acute hypoxemic respiratory failure ??? Spinal stenosis of lumbar region ??? Muscle weakness of lower extremity ??? Venous insufficiency of left lower extremity ??? Asymptomatic varicose veins of left lower extremity Meds: No current facility-administered medications on file prior to encounter. Current Outpatient Medications on File Prior to Encounter Medication Sig Dispense Refill ??? methylPREDNISolone (methylPRED DP) 4 mg Tablets, Dose Pack Take by mouth See Admin Instructions. 5 tablets daily ??? FINASTERIDE ORAL Take 5 mg by mouth daily. ??? magnesium 250 mg Tablet Take 500 mg by mouth daily. ??? calcium carbonate 648 mg calcium Tablet Take 650 mg by mouth 3 times daily (with meals). ??? cholecalciferol, Vitamin D3, (cholecalciferol, Vitamin D3,) 50 mcg (2,000 unit) [facility] ??? folic acid (Folvite) 1 mg Tablet Take 1 tablet by mouth daily. (Patient taking differently: Take3 mg by mouth 3 times daily.) 90 tablet 3 ??? metHOTREXate 2.5 mg Tablet Take 6 tablets by mouth once a week. 24 tablet 3 ??? Xarelto 20 mg Tablet Take 20 mg by mouth daily. ??? mycophenolate (CELLCEPT) 500 mg Tablet Take 2 tablets by mouth 2 times daily. 120 tablet 5 ??? tamsulosin (FLOMAX) 0.4 mg Capsule Take 0.4 mg by mouth daily. ??? ibuprofen (ADVIL;MOTRIN) 400 mg Tablet Take 400 mg by mouth every 6 hours as needed for Pain. Allergies: Allergies Allergen Reactions ??? Cat Dander ??? Dog Dander ??? Hay [Grass Pollen-[place], Standard] Family History: No family history on file. Social History: - former smoker of 40 pack years, quit in 2017 - no longer drinks ETOH - live in [place], [place] with of 41 yrs - children and grandchildren live on same land Social History Tobacco Use ??? Smoking status: Former Smoker ??? Smokeless tobacco: Never Used ??? Tobacco comment: Quit in 2017 Substance Use Topics ??? Alcohol use: Not Currently Alcohol/week: 14.0 - 21.0 standard drinks Types: 14 - 21 Cans of beer per week Frequency: 4 or more times a week Drinks per session: 1 or 2 Binge frequency: Never Comment: 1 beer a day ??? Drug use: Never Vitals: Last value Range last 24 hrs Temperature Temp: 36.8 ??C (98.2 ??F) Temp: [36.8 ??C (98.2 ??F)-36.8 ??C (98.3 ??F)] Heart Rate Heart Rate: 91 Heart Rate: [91-117] Blood Pressure BP: 145/87 BP: (134-145)/(83-87) Respiratory Rate Resp: 20 Resp: [20-26] SpO2 SpO2: 100 % SpO2: [94 %-100 %] No intake/output data recorded. Examination: General: Pleasant, alert, appropriate, in NAD. Appears stated age. Lymph: No obvious cervical LAD Cardiac: Normal S1 and S2, Regular rate and rhythm; No murmrs/gallops/rubs. Respiratory: Nonlabored. Remarkably mostly clear in the upper lung love, with some faint cracklesb/l at the bases Abd: obese, + BS; soft, non-tender, non-distended, no obvious masses. Ext: WWP without le edema, cyanosis or clubbing. DPP 2+ bilaterally. Neuro: II-XII grossly intact. Alert and orientated, no-focal deficits, no proximal muscle tenderness, 5/5 strength in hip flexion b/l Laboratory: Recent Labs 03/08/20 2200 WBC 11.1* HGB 10.7* HCT 30.8* PLATELET 252 NEUTROABS 10.51* Recent Labs 03/08/20 2200 NA 134* K 3.6 CL 98 CO2 20* BUN 22* CREATININE 0.73* Recent Labs 03/08/202199 AST 35 ALT 43 ALKPHOS 54 BILITOT 0.4 Recent Labs 03/08/202199 CALCIUM 9.6 MAGNESIUM 0.79 PHOS 3.0 Recent Labs 03/08/202199 PT 16.2* PTT 29 Recent Labs 03/08/202199 LDH 458* CK - 41 Microbiology: Blood Culture- Pending Viral DFA- Pending Covid - pending Legionella Urine Ag - pending Fungal sputum cultures Galactomann and [id number] pending Relevant Diagnostic Studies: Reviewed CXR and CTA imaging: - CXR with multifocal patchy opacities b/l predominately in the upper lobes - CT chest remarkably different than CT 3 weeks ago, now with patchy GGOs scattered throughout the mid-upper lung regions b/l, air bronchograms, no discrete pulm nodules, no effusions, a few prominent hilar lymph nodes, but no PE. Active Problems: Acute Hypoxemic Respiratory Failure Assessment: Jeison Cervantes is a 64 yr old male on multiple immunosuppressive medications including months of steroids without PCP ppx who presents in transfer with acute hypoxemic respiratory failure. Given recent CT chest just 3 weeks prior was relatively normal and acute onset of his symptoms and associated fever, an infectious process is highest on the differential at this time. High suspicion for PCP infection given immunosuppressed status not on PJP ppx, imaging findings of bilateral patchy GGO s predominantly in mid-upper lung zones, acute hypoxemic failure without cough, and relatively normal lung exam. Thus, will start treatment for PCP with bactrim and steroids. Will try to obtain sputum cultures tonight, but if unable will need to consider gold standard testing with bronchoscopy tomorrow. Other infectious etiologies on the differential include viral vs atypical PNA and fungal pna. Given the lack of cough and normal WBC, will hold on treatment of CAP, but will continue treatment for atypical PNA with levaquin. Will also order diagnostics to attempt to r/o these infectious etiologies as specified below. Given his autoimmune myopathy history, a inflammatory lung condition is also on the differential. However, seems less likely given that he had normal PFTs, and relatively normal CT chest imaging just 3weeks prior. Also pattern of imaging findings and lack of elevated inflammatory markers, speak against this. Plan: Neurologic #No active issues Cardiac #At risk for prolonged QTc #Volume status - monitor with ekg - will need to monitor volume status as IV bactrim is high fluid load Respiratory Infectious #Acute Hypoxemic Respiratory failure #B/L Pulmonary opacities #PJP infection #Atypical Pneumonia - currently stable on HFNC wean FiO2 as able - consider bronch in the morning to avoid intubation tonight - IV bactrim 15/mg/kg/day, asked for concentrated form - IV Solumedrol 40mg q8 hrs (given prior steroid need) - Levaquin 750 mg qd (last dose was 03/08 at 8am) - COVID pending - Resp viral penal pending - Attempt Sputum cultures (pt has not been able to cough): PJP stain, fungal cultures, sputum cultures - legionella urine Ag - Asperigillosis Ag and [id number] Hematologic #Hx of DVT - hold xarelto (last dose was 7pm on 03/08/2020), holding in case of biopsy during bronch tomorrow #Normocytic anemia - likely anemia of chronic disease - iron panel for tomorrow - continue home folic acid (on it for MTX) Metabolic #Necrotizing Myopathy #Muscular atrophy - normal CK, seems like autoimmune process is currently well controlled, feel that muscle atrophy and weight loss are likely related to steroid ADR - hold MTX (usually takes dose on fridays) and cellcept for now - consider rheum consult in am - consult PT #Prediabetes #Steroid-induced Hyperglycemia - SSI - sensitive Renal/Electrolytes #Sodium is normal if corrected 2/2 to hyperglycemia #BPH - continue home Finasteride and tamsulosin MICU Video Editing Internship Checklist Diet: NPO diet (Give Meds) DVT PPX: SCDs (can restart xarelto for 03/09 qhs if no bx performed) GI PPX: Protonix (given long steroid course) Code status: Full Code (Primary contact is Taniya Cervantes), active advanced directive in paper chart Dispo: pending course Shakeel Funez, DO PGY-2 Internal Medicine 03/08/2020 Critical Care Blue Team Team Pager #[phone] documented in this encounter Procedure Notes Noy Mckeon MD - 03/09/2020 12:30 PM EDTProcedure(s): BRONCHOSCOPYPre- Procedure Diagnose(s): HypoxemiaPost-Procedure Diagnose(s): HypoxemiaICU Bronchoscopy Procedure Note Bronchoscopist: Noy Mckeon MD Attending / Bumper Machine Operator: Noy Mckeon Location: [address] [place] [address]/NC57-[id number] Indication: hypoxemia Procedure Diagnosis: hypoxemia Anesthesia: propofol and 100 mcg fentanyl Endotracheal Medications: Lidocaine 5mls of 1% Procedure: A time out was performed confirming the patient???s identity and the procedure to be performed. Consent was obtained. A fiberoptic bronchoscope was inserted via the endotracheal tube and tube placement was confirmed at 2-5 cm above the main yaima. The airway was inspected in its entirety to the segmental level and anatomy and mucosa were normal with the following exceptions: none. There were not secretions present. He did have some diverticuli in the airways. Interventions: A Bronchoalveolar lavage was performed in the Lingula. 60 cc were instilled with a 20 cc return which was cloudy. Sequential lavage was not performed. After performing the above interventions the bronchoscope was removed. Sample: The bronchoalveolar lavage were sent for bacterial stain and culture, fungal stain and culture, AFB stain and culture, viral culture, PJP stain, cell count, cytology. Complications: None Noy Mckeon MD paNoy looney MD - 03/09/2020 12:25 PM EDTProcedure(s): INTUBATIONPre-Procedure Diagnose(s): Acute hypoxemic respiratory failurePost- Procedure Diagnose(s): Acute respiratory failure with hypoxiaIntubation Procedure Note Reason for Intubation: ?? Hypoxemia. Procedure Diagnosis: Hypoxemia Location of Procedure: [facility]. Risks and Benefits: The risks and benefits of this procedure were reviewed and informed consent was obtained obtained. Time Out: Prior to the start of the procedure, the patient's identity, intended procedure, site/side, correct patient positioning and presence of the site titus was confirmed as applicable. The medical history and chart were reviewed to rule out potential contraindications to the planned procedure. Intubation Assessment: ?? II Mallampati assessment ?? Good ROM neck, no anderson, able to open mouth well Additional Intubation Assessment: Preoxygenation was administered. Laryngoscope Blade and Size: D blade The endotracheal tube size was 8 mm. The tube was cuffed. Common Adjuvant Equipment: A stylet was used. Intubation Method: other: video IV Medications: ?? 30 mg Etomidate ?? 2 mg Midazolam ?? 100 mg Rocuronium Other Medications: ?? Other: none Insertion Attempts: There was 1 attempt. Visualization of Vocal Chords: A Grade I view of the vocal cords was observed. Confirmation of Tube Placement: ?? Chest X-ray ordered ?? bronchoscopic confirmation Status Post Intubation: ?? The patient was hemodynamically stable. Tube secured (at lip or nares): 22 cm at the teeth Other post intubation status comments: stable after intubation and bronchoscopy. Noy Mckeon MD 03/09/2020 documented in this encounter Miscellaneous Notes Plan of Care - Shruti Stevenson RN - 03/22/2020 3:03 AM EDT Problem: Patient Care Overview Goal: Plan of Care Review Outcome: Ongoing (Interventions Implemented as Appropriate) 03/22/20 0301 Coping/Psychosocial Plan Of Care Reviewed With patient Plan of Care Review Progress progress toward functional goals as expected OUTCOME EVALUATION NOTE: ?? OUTCOME SUMMARY: ?? A&Ox4, VSS on 2L NC and maintained sats in low 90's without issue overnight. Pt denies experiencing pain, chest pain, heart palpitations, SOB, dizziness/lightheadedness, and nausea this shift. PRN Simethicone given x1 for gas/bloating. BG monitored as ordered, now QID. Otherwise pt rested quietly in between care. Pt is able to make needs known, call butt is w/in arms reach. Will CTM and notify team of any changes. ?? PLAN MOVING FORWARD: ?? Monitor O2 status, wean O2, rehab ?? INDIVIDUALIZED FALL PREVENTION INTERVENTIONS: ?? Patient-specific fall risk factors per assessment: [current deficits]: Deconditioned, RAYGOZA, medical equipment, unfamiliar environment ?? Assistance [level of assistance required for transfers and ambulation]: 2A w/ FWW ?? Supervision [direct monitoring required during toileting and ADLs]: Hands on ?? Surveillance [continuous indirect monitoring]: Bed alarm, masimo, call butt w/in reach, room near nurses station, purposeful rounding ?? Patient-specific fall prevention interventions for sensory deficits provided, if applicable: [X] N/A ? CPG GOAL OUTCOME EVALUATION: lan of Care - Brigitte Snow RN - 03/21/2020 4:46 PM EDTProblem: Patient Care Overview Goal: Plan of Care Review OUTCOME EVALUATION NOTE: OUTCOME SUMMARY: 'Channing' had a great day today. A/O x 4. Physical assessment as documented. VSS with exception to systolic BP between 90-100mmHg. - aasymptotic otherwise, MD notified & aware. Continued to require NC- @ rest, able to tolerate 2L NC to maintain above 87% (goal SpO2). However, with activity, requiring 5-6L NC to maintain above goal of 87%. See doc flow sheets for details. This AM, Channing had episodeof emesis after eating breakfast. Declined PRN Zofran. Able to eat some of lunch and dinner. Channing was also reporting abdominal pain, and fullness throughout the day - reported feeling constipated. Given PRN Enema x 2, scheduled Lactulose x 1, and given prune juice w/butter PO - all given with good effect. Channing had multiple bowel movement this afternoon, and reported feeling relief. He was found to have hemorrhoid present in rectum - MD to bedside to assess. No interventions at that time. Channing was up in the chair for some meals today. at bedside to visit - very involved in care. No other events. Will CTM and notify with any changes. PLAN MOVING FORWARD: Titrate 02, continue bowel regimen, encourage PO intake, encourage mobility, involve pt in plan of care, discharge planning INDIVIDUALIZED FALL PREVENTION INTERVENTIONS: Patient-specific fall risk factors per assessment: [current deficits]: Generalized weakness Assistance [level of assistance required for transfers and ambulation]: 2 person assist, with FWW and oxygen Supervision [direct monitoring required during toileting and ADLs]: Hands on Surveillance [continuous indirect monitoring]: Hourly rounding, call butt in reach, pt room near unit station, bed alarm, chair alarm Patient-specific fall prevention interventions for sensory deficits provided, if applicable: [X] No CPG GOAL OUTCOME EVALUATION: lan of Care - Gayla Diaz, PROGRAM ADVOCATE - 03/21/2020 10:15 AM EDT Physical Therapy Note Treatment Number PT: 5 Patient profile: Jeison Cervantes is a 64 y.o. 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 Interval History: Per MD note 03/21/20 - No acute events overnight - Cont. 21 day course of bactrim - Working with PT/OT - likely to go to rehab facility - Soap and suds enema given yesterday without success - Continues to be constipated with abdominal pain - Patient did well on 5L NC last evening Social History: Jeison lives with his , Dbeora, in [place], [place]; retired; since November, has lost weight and strength (seen by Dr. Osuna at [facility]) due to autoimmune necrotizing myopathy (?); had seen outpatient PT ??For 2 sessions prior to onset of pneumonia Home set-up:??1-level Stairs:??2 steps to enter Baseline Mobility:??able to ambulate short distances without a device with shuffle gait; unable toget up from a squat and with difficulty getting out of the car; unable to stand for long periods?? Equipment at home:??cane Fall history:??none Precautions/Special Considerations: Full code, High risk for skin breakdown, At risk to fall, Oxygensupport - 6L O2 via NC with activity Lines: Gil and PIV Activity Orders: Activity as tolerated Diet: Regular (adult) diet Mobility and Positioning Recommendations: ?? Pt requires 2 assist for stand / pivot transfers or short distance ambulation with nursing using FWW and gait belt. ?? Please encourage up to chair for meal times as able. Subjective: I would love to be able to make it to that toilet. Objective: Patient seen for follow-up physical therapy treatment session in collaboration with OT evaluation and demonstrated the following: Pain: c/o back pain (not rated) - improved with dynamic stretching. Vital Signs: At Rest With Activity SpO2 (2-6L via NC) 93% on 2L 79-91% with activity increased to 6L and does better with NC in mouth d/t mouth breathing HR 95bpm 111bpm ?? SpO2 recovery within 1-2 min to >88% Mental Status: awake / alert / oriented x4 / agreeable to participate Bed Mobility: Sit to Supine: minimum assist for LEs d/t fatigue ?? Pt with definite reliance on use of hospital bed features to perform with (S), seat max inflated Transfers: Sit to Stand: contact guard assist x2 using rolling walker and gait belt ?? Cues for hand placement off recliner or use of grab bar in BR ?? No evidence of knee buckle this visit ?? Stood x3 throughout session from recliner x1 and toilet x2 ?? Decreased standing tolerance, static standing ~30 seconds before needing to sit Stand to Sit: minimum assist using rolling walker ?? Decreased eccentric control when fatigued Gait: Distance: 8' x 2 Device used: rolling walker Level of assist: minimum assist x2 Gait mechanics: decreased foot clearance (B), reduced step length (B), minimal single leg stance time (B). Significant drop in SpO2 on 4L, increased to 6L, fatigues quickly, reports Balance: Sitting: good seated balance noted when sitting on toilet, limited by fatigue and reported dizziness(when O2 was low) requiring UE support at times Standing: fair - Education: Pt encouraged to perform seated marching in addition to prior prescribed PT HEP (10x/hourwhen up to chair, unless fatigued - aim to maximize safety with ambulation back to bed). had many questions regarding rehab facilities and HEP programs, all questions answered. Pt educated on us of IS, able to perform 1750-2000mL Pt left long sitting in bed, with all needs met, with call butt in reach and with bed alarm active following visit. Assessment: Jeison Cervantes was seen today for physical therapy treatment session for continuation of POC. Jeison presented highly motivated to participate in therapy to increase functional strength and endurance. He progressed to ambulation in room however had significant drop in SpO2, required increased O2 and use of NC in mouth to maintain stats. Significant caregiver training and education was provided throughout session with all questions answered. He will make an excellent rehab candidate when medically ready for hospital D/C and will benefit from ongoing therapeutic interventions while inhospital to achieve therapy goals. Discharge Recommendations: When medically ready for hospital D/C, discharge recommendations: Discharge to rehab setting with skilled services, this patient would be an appropriate Acute Care rehab candidate Consult Recommendations: No other consults recommended at this time. Equipment needs: TBD at rehab Physical Therapy Goals: To be achieved by??03/28/20: ?? 2. Pt. to demonstrate knowledge of safety limitations and precautions and will appropriately requestassistance for functional activities and to mobilize. Ongoing 3. Patient and ??to demonstrate understanding of appropriate exercises. Ongoing 4. Pt. to perform bed mobility??with supervision. Met 5. Pt. to perform??sit to stand??transfers with supervision??using a front wheeled walker. ?? 6. Pt. to ambulate??at least 75??feet with supervision?using a front wheeled walker. 7. Pt. to ambulate up/down??2??step/stairs ??using ??one rail?with CGA. 8. Family or caregiver to demonstrate understanding of therapeutic interventions to support the careof the patient. 9. Pt will tolerate progression towards upright with stable vital signs. Met Plan: Therapy Frequency: 3-5 times/wk for therapy interventions as outlined in initial evaluation. Patient agrees with plan as stated. Time IN / OUT: 10:15-11:25 Total Evaluation Minutes, Physical Therapy: 70(TE-Fx 5) Gayla Diaz PTA Pager: [phone] Physical Therapy Inpatient Rehabilitation Department lan of Care - Shruti Stevenson RN - 03/21/2020 3:26 AM EDT Problem: Patient Care Overview Goal: Plan of Care Review Outcome: Ongoing (Interventions Implemented as Appropriate) 03/21/20 0321 Coping/Psychosocial Plan Of Care Reviewed With patient Plan of Care Review Progress progress toward functional goals as expected OUTCOME EVALUATION NOTE: OUTCOME SUMMARY: A&Ox4, VSS on 5L NC and maintained O2 goal of >87% without issue overnight. Pt denies experiencing pain, chest pain, heart palpitations, SOB, dizziness/lightheadedness, and nausea this shift. BGmonitored as ordered. Pt w/o BM overnight and refused evening dose of Miralax despite eduction from this RN. Otherwise pt rested quietly in between care. Pt is able to make needs known, call butt is w/in arms reach. Will CTM and notify team of any changes. PLAN MOVING FORWARD: Monitor O2 status, wean O2, rehab INDIVIDUALIZED FALL PREVENTION INTERVENTIONS: Patient-specific fall risk factors per assessment: [current deficits]: Deconditioned, RAYGOZA, medical equipment, unfamiliar environment Assistance [level of assistance required for transfers and ambulation]: 2A w/ FWW Supervision [direct monitoring required during toileting and ADLs]: Hands on Surveillance [continuous indirect monitoring]: Bed alarm, masimo, call butt w/in reach, room near nurses station, purposeful rounding Patient-specific fall prevention interventions for sensory deficits provided, if applicable: [X] N/A CPG GOAL OUTCOME EVALUATION: lan of Care - Ashwini Arechiga RN - 03/20/2020 8:13 PM EDT Problem: Patient Care Overview Goal: Plan of Care Review Outcome: Ongoing (Interventions Implemented as Appropriate) 03/20/202008 Coping/Psychosocial Plan Of Care Reviewed With patient Plan of Care Review Progress progress toward functional goals as expected OUTCOME EVALUATION NOTE: OUTCOME SUMMARY: Pt AOx4. VSS on 5L NC aside from soft Bps, sating low 90s. Denies pain. Worked w/ PT/OT today, standpivot to chair and commode 2a. X1 soap and suds enema given, 500 ml admonistered. visited to day. No acute events. Will continue to monitor. PLAN MOVING FORWARD: Pain management PT/OT BG monitoring INDIVIDUALIZED FALL PREVENTION INTERVENTIONS: Patient-specific fall risk factors per assessment: [current deficits]: Generalized weakness, IVs, RAYGOZA Assistance [level of assistance required for transfers and ambulation]: 2a w/ walker Supervision [direct monitoring required during toileting and ADLs]: Hands on Surveillance [continuous indirect monitoring]: Purposeful rounding, bed alarm on, call light withinreach, room near unit station Patient-specific fall prevention interventions for sensory deficits provided, if applicable: [X] N/A CPG GOAL OUTCOME EVALUATION: lan of Quentin Carrillo PTA - 03/20/2020 3:30 PM EDTPhysical Therapy Note Attempted to see pt this afternoon, pt unavailable for therapy due to enema. Will follow up as appropriate. QUENTIN BLANC PTA Pager: [phone] Physical Therapy Inpatient Rehabilitation Department lan of [facility] [place] - Karol Dueñas, OT - 03/20/2020 3:18 PM EDT Occupational Therapy Treatment Note Treatment Number OT: 2 Patient Dx: Jeiosn Cervantes is a 64 y.o. male with PMH of??autoimmune??necrotizing myopathy??on immunosuppression, spinal stenosis/bulging disc??at L3-4, and??(L)LE DVT??admitted on??03/08/2020??for hyp oxemic respiratory failure secondary to PJP pneumonia. Social History:??Jeison??lives with his , Debora, in [place], [place]; retired; since November, has lost weight and strength (seen by Dr. Osuna at [facility]) due to??autoimmune necrotizing myopathy (?); had seenoutpatient PT for 2 sessions prior to onset of pneumonia Home set-up:??1-level. Walk in shower with 4 inch lip. Shower stool. Has grab bars, but not installed. High toilet. Regular bed. Stairs:??2 steps to enter Baseline Mobility/ADL:??able to ambulate short distances without a device with shuffle gait; unable to get up from a squat and with difficulty getting out of the car; unable to stand for long periods. Independent ADL tasks. IADLs have become difficult over the past few weeks. Equipment at home:??cane Fall history:??none ?? Precautions/Special Considerations:??Full code, High risk for skin breakdown, At risk to fall, Oxygen support ??5L O2 via NC Lines:??Gil and PIV Activity Orders:??Activity as tolerated?? Diet:??Regular (adult) diet 24 hr events: - No acute events overnight - Cont. 21 day course of bactrim - Requiring 6 L O2 NC - Likely discharge to rehab facility S: I would love to get up -Patient supine in bed O: Patient seen for skilled OT treatment, and demonstrated the following: ?? Self-care: ?? LB Dressing: Patient donned socks long sitting in bed following a figure four technique with Min A. Declined the need for pants. ?? Toileting: Min A x 2 stand pivot transfer to a commode with use of a RW ?? Patient requesting edema from RN ?? Patient reports he has already completed bathing/grooming tasks for the day. Discussed the benefits of completing these tasks on his own rather than requesting assistance from nursing ?? Educated patient on the benefits of sitting upright and getting OOB for the day ?? Functional Mobility: ?? Supine to sit: Supervision to L side of the bed; HOB elevated ?? Sit to stand: Completed 3 sit to stands at EOB with Min A/CGA x 2 and support of a RW ?? Transfers: Patient transferred from bed to commode with Min A x 2 and support of a RW ?? Sitting balance: Supervision at EOB & on commode ?? Standing balance: Fair; Required CGA x 2 and support of a RW; LB weakness Cognitive Status/Behavior: ?? Behavior / Mood: Alert, pleasant, motivated to participate, appreciative of care ?? Alert and oriented to: person, place, time and situation ?? Follows commands: multi step, 100% of the time ?? Attention: WFL ?? Safety awareness: WFL ?? Endurance: Educated patient on energy conservation/pursed lip breathing exercises ?? Vitals: BP 101/63; HR 91; Sp02 fluctuated 80's-90's on 5L 02 Pain: Denies Education: Pt & SO education ongoing regarding: Role of occupational therapy/rehabilitation, Transfers, Assistive device/technique, ADL, Breathing exercises, Positioning, Safety, Functional Mobility, Activity pacing/Energy conservation, Balance, Recommendations and Discharge planning. Staff Communication: Patient status, treatment, and mobility recommendations discussed with nursing/other staff. ASSESSMENT: Patient was seen today for an OT session to address ADL training/functional mobility. Upon OT arrival, patient was pleasant, orientated and motivated to participate. OT educated patient on the importance of getting OOB throughout the day to increase strength/functional activity tolerance (had not yet been OOB). He required Min A x 2 to transfer to a commode. Sp02 noted to drop into the mid 80's on 5L 02 and patient completed pursed lip breathing exercises/pacing techniques with minimal cues. He continues to be quite deconditioned, therefore, will require rehab stay to increase independence. Pt will benefit from ongoing therapeutic interventions to achieve pt's and therapy goals Anticipated Discharge Disposition: inpatient rehabilitation facility Other Recommendations: ?? Utilize upright chair position using bed features or transfer to recliner chair as appropriate with 2 assist, stand pivot ?? 2 assist stand pivot transfer to commode ?? Encourage participation in ADL's by providing set up A on tray table and physical assist only as needed Goals: To be achieved by 04/02/20: ?? Patient will don/doff LB clothing independently, seated, with AE, as needed Patient will complete toileting tasks (hygiene, clothing management, transfers) independently with AE, as needed Patient will ambulate to/from the bathroom with supervision and with AD, as needed Patient will complete UB/LB sponge bathing tasks independently, while seated with AE, as needed Patient will complete grooming task (comb hair, brush teeth, shave) independently, standing at the sink Therapy Frequency: 2-4 times/wk Total Evaluation Minutes, Occupational Therapy: 31(Theract x 1; SCHM x 1 ) Pager: [phone] KAROL DUEÑAS OT Occupational Therapy Rehabilitation Department lan of Care - Jessica Lamb RN - 03/20/2020 4:43 AM EDT Problem: Patient Care Overview Goal: Plan of Care Review Outcome: Ongoing (Interventions Implemented as Appropriate) 03/20/20 7781 Coping/Psychosocial Plan Of Care Reviewed With patient Plan of Care Review Progress progress toward functional goals as expected OUTCOME EVALUATION NOTE: OUTCOME SUMMARY: Mr Cervantes is alert and oriented X4. He is very deconditioned and weak. O2 at 6 lpm via nc. Early in shift, he de-sat to 84 on 6 lpm when I was asking questions for head to toe. It took him a bit to recover to 88% on 6lpm. RT and provider paged and both showed to bedside for assessment. He continued through- out night to occasionally hit 87% but quickly recovers to 88-89% team aware. PLAN MOVING FORWARD: Wean 02 Oral high dose bactrim Monitor 02 sats Search for rehab Discharge planning INDIVIDUALIZED FALL PREVENTION INTERVENTIONS: Patient-specific fall risk factors per assessment: [current deficits]: Generalized weakness, IV, RAYGOZA ?? Assistance [level of assistance required for transfers and ambulation]: 2a stand pivot ?? Supervision [direct monitoring required during toileting and ADLs]: Hands on ?? Surveillance [continuous indirect monitoring]: Purposeful rounding, call light within reach, bed alarm on, room near unit station. ?? Patient-specific fall prevention interventions for sensory deficits provided, if applicable: [X] N/A CPG GOAL OUTCOME EVALUATION: lan of Care - Ashwini Arechiga RN - 03/19/2020 6:32 PM EDT Problem: Patient Care Overview Goal: Plan of Care Review Outcome: Ongoing (Interventions Implemented as Appropriate) 03/19/20 1827 Coping/Psychosocial Plan Of Care Reviewed With patient Plan of Care Review Progress progress toward functional goals as expected OUTCOME EVALUATION NOTE: OUTCOME SUMMARY: Pt AOx4. VSS on 6L NC aside from soft Bps. At the start of shift, sating low 90s, now sating 93-96 on 6L NC. Denies pain. Worked w/ PT/OT today, stand pivot to chair 2a. U protein/creatine sent to lab. visited to day. No acute events. Will continue to monitor. PLAN MOVING FORWARD: O2 wean INDIVIDUALIZED FALL PREVENTION INTERVENTIONS: Patient-specific fall risk factors per assessment: [current deficits]: Generalized weakness, IV, ARYGOZA Assistance [level of assistance required for transfers and ambulation]: 2a stand pivot Supervision [direct monitoring required during toileting and ADLs]: Hands on Surveillance [continuous indirect monitoring]: Purposeful rounding, call light within reach, bed alarm on, room near unit station. Patient-specific fall prevention interventions for sensory deficits provided, if applicable: [X] N/A CPG GOAL OUTCOME EVALUATION: lan of Care - Karol Dueñas OT - 03/19/2020 4:04 PM EDT Occupational Therapy Evaluation Patient profile: Jeison Cervantes is a 64 y.o. 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 Past Medical History: Diagnosis Date ??? 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 Venous insufficiency of left lower extremity 05/04/2018 Past Surgical History: Procedure Laterality Date ??? PRO BIOPSY MUSCLE DEEP Left 12/16/2018 BIOPSY OF MUSCLE, DEEP, LOWER EXTREMITY (WRVU 2.35) performed by Leon Osuna MD at [facility] Social History: Jeison lives with his , Debora, in [place], [place]; retired; since November, has lost weight and strength (seen by Dr. Osuna at [facility]) due to??autoimmune necrotizing myopathy (?); had seen outpatient PT for 2 sessions prior to onset of pneumonia Home set-up:??1-level. Walk in shower with 4 inch lip. Shower stool. Has grab bars, but not installed. High toilet. Regular bed. Stairs:??2 steps to enter Baseline Mobility/ADL:??able to ambulate short distances without a device with shuffle gait; unable to get up from a squat and with difficulty getting out of the car; unable to stand for long periods. Independent ADL tasks. IADLs have become difficult over the past few weeks. Equipment at home:??cane Fall history:??none ?? Precautions/Special Considerations: Full code, High risk for skin breakdown, At risk to fall, Oxygensupport - 6L O2 via NC Lines: Gil and PIV Activity Orders: Activity as tolerated Diet: Regular (adult) diet ?? 24 hr events: - No acute events overnight - Cont. 21 day course of bactrim - Requiring between 5 and 6 L O2 NC Subjective: It seems like everyday is something new Objective: Seen today for OT evaluation. Cognitive Status/Behavior: ?? Behavior / Mood: Alert, pleasant, motivated to participate, appreciative of care ?? Alert and oriented to: person, place, time and situation ?? Follows commands: multi step, 100% of the time ?? Attention: WFL ?? Safety awareness: WFL Vision & Perception: ?? corrective lenses for reading; Able to read the clock from across the room Communication: WFL Range of motion, strength, coordination: Hand dominance: right Bilateral UE ROM are within functional limitations. Generalized weakness Able to sit 90/90 at EOB. Unable to complete figure four to don socks at EOB Sensation: Intact Activities of Daily Living: Self-feeding: Set up Grooming: Set up Dressing: Supervision UB; Min A to don socks seated upright in bed. Denied the need for pants (Anticipate Max A to hike over hips) Bathing: Not formally assessed, but anticipate supervision UB and Mod A LB Toileting: Transfer: N/A, but recommend a stand pivot to a bedside commode Hygiene: N/A Functional Mobility: Supine to sit: Supervision to L side of the bed with HOB elevated & use of bed rail Sit to stand: Min A x 2 up to a RW (3 times) Ambulation: Few steps from bed to chair with Min A x 2 and support of a RW Stand to sit: Min A Sit to supine: N/A, patient remained seated in his bedside chair upon completion of his OT eval Balance: Sitting balance: Good; Able to maintain an upright posture seated at EOB w/o UB support Standing balance: Fair; Required Min A x 2 and support of a RW. 1 episode of knee buckling noted Vitals: BP 103/66; HR 80's-110; Sp02 noted fluctuated between 82-94% on 6L 02. Patient educated on pursed lip breathing/pacing techniques. Pain: Denies Skin: Not formally assessed, but appears intact Education: Patient has been educated on Role of occupational therapy/rehabilitation, Transfers, ADL,Breathing exercises, Positioning, Safety, Functional Mobility, Activity pacing/Energy conservation, Balance, Recommendations and Discharge planning and verbalizes understanding. Patient status, treatment, and mobility recommendations discussed with nursing. Assessment: Pt has been seen for occupational therapy evaluation. Jeison Cervantes presents with the following performance skill deficits and client factors: decreased activity tolerance, decreased flexibility/ROM, decreased strength, decreased sitting/standing balance, hemodynamic instability, decond itioning, compromised mobility status and coping. These performance deficits have led to activity limitations and participation restrictions in the following areas of occupation: dressing, bathing, grooming, toileting, transfers/mobility, home management, leisure, driving, community mobility and social participation. Upon OT arrival, patient was A&Ox4, pleasant and motivated to participate. He demonstrated the ability to complete bed mobility with supervision, a transfer from bed to chair with Min A x 2 and LB ADL tasks with Min/Mod A. His PLOF includes independence with all ADL tasks and functional mobility, therefore, will benefit from a rehab stay to increase independence. Pt would benefit from further inpatient OT interventions to address performance deficits and maximize participation and independence with occupations of daily living. Equipment needs at discharge: TBD; Probable RW Anticipated Discharge Disposition: inpatient rehabilitation facility Other Recommendations: ?? Utilize upright chair position using bed features or transfer to recliner chair as appropriate with 2 assist, stand pivot ?? 2 assist stand pivot transfer to commode ?? Encourage participation in ADL's by providing set up A on tray table and physical assist only as needed Goals: To be achieved by 04/02/20: Patient will don/doff LB clothing independently, seated, with AE, as needed Patient will complete toileting tasks (hygiene, clothing management, transfers) independently with AE, as needed Patient will ambulate to/from the bathroom with supervision and with AD, as needed Patient will complete UB/LB sponge bathing tasks independently, while seated with AE, as needed Patient will complete grooming task (comb hair, brush teeth, shave) independently, standing at the sink Plan: OT: Therapy Frequency: 2-4 times/wk Planned OT interventions: Role of occupational therapy/rehabilitation, Transfers, Assistive device/technique, Adaptive equipment training, ADL, Exercise, Breathing exercises, Positioning, Safety, Functional Mobility, Activity pacing/Energy conservation, Home Management, Balance, Recommendations and Discharge planning. Total Evaluation Minutes, Occupational Therapy: 48(OT eval & theract x 1 ) 2017 OT Evaluation Code Rationale: ?? Diagnosis & Pertinent Co-Morbidities affecting Plan of Care: see PMHx ?? Occupational Profile & Client History: Brief Expanded Extensive x ?? Assessment of Occupational Performance: 1-3 performance deficits 3-5 performance deficits 5 + performance deficits x ?? Clinical Decision Making: Low Moderate High x Clinical decision making of high complexity using standardized patient assessment instrument and measurable assessment of functional outcome. Pager: [phone] KAROL DUEÑAS OT 03/19/2020 Occupational Therapy Rehabilitation Department lan of Care - Mee Potter, PT - 03/19/2020 9:33 AM EDT Physical Therapy Note Treatment Number PT: (P) 4 Patient profile: Jeison Cervantes is a 64 y.o. 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 Interval History: transferred to floor Social History: Jeison lives with his , Debora, in [place], [place]; retired; since November, has lost weight and strength (seen by Dr. Osuna at [facility]) due to autoimmune necrotizing myopathy (?); had seen outpatient PT ??For 2 sessions prior to onset of pneumonia Home set-up:??1-level Stairs:??2 steps to enter Baseline Mobility:??able to ambulate short distances without a device with shuffle gait; unable toget up from a squat and with difficulty getting out of the car; unable to stand for long periods?? Equipment at home:??cane Fall history:??none Precautions/Special Considerations: Full code, High risk for skin breakdown, At risk to fall, Oxygensupport - 6L O2 via NC Lines: Gil and PIV Activity Orders: Activity as tolerated Diet: Regular (adult) diet Mobility and Positioning Recommendations: ?? Pt requires 2 assist for stand / pivot transfers with nursing (may require mechanical lift back to bed pending level of fatigue at time of transfer). ?? Please encourage up to chair for meal times as able. Subjective: I've got two of you to help, let's try it! Objective: Patient seen for follow-up physical therapy treatment session in collaboration with OT evaluation and demonstrated the following: Pain: c/o back pain (not rated) - improved with dynamic stretching at EOB Vital Signs: At Rest With Activity SpO2 (6L via NC) 90s % 82% min, ranging 82-91% with activity (average ~85%) BP (MAP) 103/66 mmHg ?? SpO2 recovery within 1-2 min to >88% Mental Status: awake / alert / oriented x4 / agreeable to participate Bed Mobility: Supine to Sit: supervised with pt use of bed rail and with HOB raised ?? Pt with definite reliance on use of hospital bed features to perform with (S), seat max inflated Transfers: Sit to Stand: minimum assist x2 using rolling walker ?? Rehearsed 2x from EOB ?? Tolerated static / dynamic standing x45-120 sec, marching in place ?? No evidence of knee buckle this visit Stand to Sit: minimum assist using rolling walker ?? Cues for slow lower to seat Gait: Distance: a few lateral steps bed to chair, working to pt's (R) Device used: rolling walker Level of assist: minimum assist x2 Gait mechanics: decreased foot clearance (B), reduced step length (B), minimal single leg stance time (B) Balance: Sitting: fair + Standing: poor Education: Pt encouraged to perform seated marching in addition to prior prescribed PT HEP (10x/hourwhen up to chair, unless fatigued - aim to maximize safety with ambulation back to bed) Pt left in bedside recliner chair, with all needs met, with call butt in reach and with chair alarm active following visit. Assessment: Jeison Gray Elsaoksana was seen today for physical therapy treatment session for continuation of POC. Jeison presents this date making steady gains and required reduced level of functional assistance to rehearse dynamic mobility tasks this visit compared to most recent PT session. He is quite motivated to maximize strength and endurance gains over hospital admission and his HEP was updated this visit as above. He will make an excellent rehab candidate when medically ready for hospital D/C and will benefit from ongoing therapeutic interventions while in hospital to achieve therapy goals. Discharge Recommendations: When medically ready for hospital D/C, discharge recommendations: Discharge to rehab setting with skilled services, this patient would be an appropriate Acute Care rehab candidate Consult Recommendations: No other consults recommended at this time. Equipment needs: TBD at rehab Physical Therapy Goals: To be achieved by??03/28/20: ?? 2. Pt. to demonstrate knowledge of safety limitations and precautions and will appropriately requestassistance for functional activities and to mobilize. Ongoing 3. Patient and ??to demonstrate understanding of appropriate exercises. Ongoing 4. Pt. to perform bed mobility??with supervision. Met 5. Pt. to perform??sit to stand??transfers with supervision??using a front wheeled walker. ?? 6. Pt. to ambulate??at least 75??feet with supervision?using a front wheeled walker. 7. Pt. to ambulate up/down??2??step/stairs ??using ??one rail?with CGA. 8. Family or caregiver to demonstrate understanding of therapeutic interventions to support the careof the patient. 9. Pt will tolerate progression towards upright with stable vital signs. Met Plan: Therapy Frequency: (P) 3-5 times/wk for therapy interventions as outlined in initial evaluation. Patient agrees with plan as stated. Time IN / OUT: 9:33 - 10:08 Total Evaluation Minutes, Physical Therapy: (P) 35(TE-Fx2) MEE POTTER, PT Pager: [phone] Physical Therapy Inpatient Rehabilitation Department lan of Care - Sunita French RN - 03/19/2020 5:33 AM EDT Problem: Patient Care Overview Goal: Plan of Care Review Outcome: Ongoing (Interventions Implemented as Appropriate) 03/18/20 1707 03/18/20 2210 Coping/Psychosocial Plan Of Care Reviewed With -- patient Plan of Care Review Progress progress toward functional goals is gradual -- OUTCOME EVALUATION NOTE: OUTCOME SUMMARY: Pt resting in bed. Plan of care reviewed with pt. Pt A&Ox4. Pt maintained on 6L NC during shift.Pt intermittently desating into mid 80s but nonsustained. Pt sating in low 90s throughout most of shift. Pt denied SOB. Pt voiding spontaneously during shift. Pt sleeping between care with no acute events overnight. Safety maintained. Call light within reach. Will continue to monitor and notify MD of changes. PLAN MOVING FORWARD: Monitor oxygenation Wean O2 as tolerated Emotional support Discharge planning INDIVIDUALIZED FALL PREVENTION INTERVENTIONS: Patient-specific fall risk factors per assessment: [current deficits]: Generalized weakness; Dyspnea on exertion Assistance [level of assistance required for transfers and ambulation]: 2A Supervision [direct monitoring required during toileting and ADLs]: SBA Surveillance [continuous indirect monitoring]: Purposeful rounding; masimo Patient-specific fall prevention interventions for sensory deficits provided, if applicable: CPG GOAL OUTCOME EVALUATION: lan of Care - Vesta Quiroz RN - 03/18/2020 5:10 PM EDT Problem: Patient Care Overview Goal: Plan of Care Review Outcome: Ongoing (Interventions Implemented as Appropriate) 03/18/20 0611 03/18/20 1707 Coping/Psychosocial Plan Of Care Reviewed With patient -- Plan of Care Review Progress -- progress toward functional goals is gradual OUTCOME EVALUATION NOTE: OUTCOME SUMMARY: Pt is alert and oriented x4 with a RASS of 0. Pt worked with PT today and was able to stand with a walker at the bedside. Pt has remained on 5-6L NC throughout the day. Dubois removed due to dubois no longer draining. St. Cath x1 for 400cc. Urine has a lot of sediment/clots and garrison in color; MD aware. Pt is eligable to move to the floor. PLAN MOVING FORWARD: Transfer to hospital medicine INDIVIDUALIZED FALL PREVENTION INTERVENTIONS: Patient-specific fall risk factors per assessment: [current deficits]: IV, masimo, weakness, diagnosis, oxygen Assistance [level of assistance required for transfers and ambulation]: 1- assist with walker to stand Supervision [direct monitoring required during toileting and ADLs]: Hands on Surveillance [continuous indirect monitoring]: Hourly rounding, room near nurses station, call bellin reach Patient-specific fall prevention interventions for sensory deficits provided, if applicable: [X] Yes, glasses at bedside CPG GOAL OUTCOME EVALUATION: Plan of Care - Tanner Nguyen PT - 03/18/2020 1:31 PM EDT Physical Therapy Note Treatment Number PT: 3 Patient profile: Jeison Cervantes is a 64 y.o. right-handed male admitted on 03/08/[address] 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 Initially on BiPAP and was weaned to HFNC. Interval History: moved to ICU 37, transitioned to 6L O2 nc Social History: lives with his , Debora, in [place], [place]; retired; since November, has lost weight andstrength (seen by Dr. Osuna at [facility]) due to autoimmune necrotizing myopathy (?); had seen outpatient PT For 2 sessions prior to onset of pneumonia Home set-up: 1-level Stairs: 2 steps to enter Baseline Mobility: able to ambulate short distances without a device with shuffle gait; unable to get up from a squat and with difficulty getting out of the car; unable to stand for long periods Equipment at home: cane Fall history: no Precautions/Special Considerations: fall risk; low respiratory reserve Lines: PIV Activity Orders: as tolerated Diet: regular ?? Mobility and Positioning Recommendations: ?? Please encourage up in bed-chair intermittently during the day. ?? Overhead lift to chair daily and for meal times as able. ?? Encourage bed level exercises Subjective: I think sitting at the edge of the bed would be ok today. My did all the exerciseson the list with me already. Objective: Patient seen for physical therapy and demonstrated the following: Pain: residual pain to palpation in L medial lower leg since having had DVT in the past; low back pain - felt good to stretch in forward sitting ? Vital Signs: ?? At Rest With Activity SpO2 (6L nc) 94-96% Dipped for a short time to 84% with talking while in sitting. Maintained at 90-91% for the most part BP (MAP) mmHg mmHg HR 80's bpm 90's bpm ?? Mental Status: alert, oriented x 3, motivated, slightly reserved with new therapist ?? Skin: L LE with mild edema (baseline since DVT and was not responsive to compression stockings in the past) ?? Musculoskeletal: ROM: WNL Strength: shoulder flexion 3+, shoulder abduction 3- and with compensatory trapezius use, elbow flexion 4, elbow extension 4-, hand kennel attendant 4, hip flexion 2, hip abd and add 2, knee extension 3, dorsiflexion 4, plantarflexion 3+ Sensation: intact light touch throughout ?? Bed Mobility: Supine to Sit: with HOB elevated to 40 degrees. He was able to move LE's to EOB independently and roll toward right sidely. Min assist for trunk to upright. Sit to Supine: nt, left in sitting with nsg to get back to supine Scooting: pt was able to scoot forward upon initial sitting with cg only. He needed to rest between scoots. He also scooted minimally x 4 toward HOB during the session independently but with much effort using UE's and LE's ?? Transfers: Pt tolerated sitting at EOB with good RR and SpO2. Needed education about limiting talking which tended to increased WOB. He was left in sitting with , Debora and RN for back wash. Sit to Stand: moderate assist of 1 guarding one knee. He stood erect while holding walker. was holding walker. He stood for at least 25 seconds for sheet change. Cues to breath. Fair knee/quad control. Stand to Sit: minimal assist of 2 Bed to Chair: nt ?? Gait: unable ?? Balance: Sitting Static: good Sitting Dynamic: good for anterior/posterior and lateral trunk weight shift in upright sitting Standing Static: fair with walker, guarding right knee only initially then not Standing Dynamic / Gait: unable ?? Therex: has been performing ex's with pt daily. Today during PT pt performed ankle pumps, SAQ x10 reps, home blue band used for upright rows and triceps x 10 reps. instructed in ex technique. He is able to perform heel slides independently today. Seated trunk flexion and rotation to help with back stiffness. ?? Education: Reviewed ex's and pacing. ?? Patient status, treatment, and mobility recommendations discussed with nursing. Assessment: Jeison Cervantes was seen today for physical therapy treatment session for continuation of POC. Pt tolerated continued and progression of ex's today on 6L O2 nc. He was able to tolerate sitting at EOB for at least 25 mins and standing x 1. He remains weak and with poor pulmonary reserve, but showing slow gains toward goals. Discussed pacing activity throughout the day in order to avoid excessive fatigue. Pt will benefit from ongoing therapeutic interventions to achieve therapy goals. Discharge Recommendations: Based on the current findings, Anticipated Discharge Disposition: (unknown at this time. May need acute rehab) when medically ready for hospital discharge. Consult Recommendations: No other consults recommended at this time. Equipment needs: to be determined Physical Therapy Goals: Ongoing, making slow gains To be achieved by 03/28/20: ?? 1. Pt. to demonstrate knowledge of safety limitations and precautions and will appropriately requestassistance for functional activities and to mobilize. 2. Patient and to demonstrate understanding of appropriate exercises. 3. Pt. to perform bed mobility with supervision. 4. Pt. to perform sit to stand transfers with supervision using a front wheeled walker. 5. Pt. to ambulate at least 75 feet with supervision using a front wheeled walker. 6. Pt. to ambulate up/down 2 step/stairs using one rail with CGA. 7. Family or caregiver to demonstrate understanding of therapeutic interventions to support the careof the patient. 8. Pt will tolerate progression towards upright with stable vital signs. Plan: Therapy Frequency: 3-5 times/wk for therapy interventions as outlined in initial evaluation. Patient agrees with plan as stated. Time IN / OUT: 3639-6539 Total Evaluation Minutes, Physical Therapy: 45(ex's x3) TANNER NGUYEN PT Pager: [phone] Physical Therapy Inpatient Rehabilitation Department lan of Care - Shakeel Hernandez RN - 03/18/2020 6:14 AM EDT Problem: Patient Care Overview Goal: Plan of Care Review Outcome: Ongoing (Interventions Implemented as Appropriate) 03/18/20 0611 Coping/Psychosocial Plan Of Care Reviewed With patient Plan of Care Review Progress no change OUTCOME EVALUATION NOTE: OUTCOME SUMMARY: Pt remains alert and oriented x 4 on 6 liters nasal cannula for most of the evening, transitioned toHFNC 30 liters and 60% FiO2 for SpO2 goal of greater than 89%. This morning pt had one desaturation event at which point was placed back on HFNC. Pt denies pain. Otherwise vital signs stable. Will continue to monitor. PLAN MOVING FORWARD: - Monitor respiratory status - Encourage deep breathing - Activity as tolerated INDIVIDUALIZED FALL PREVENTION INTERVENTIONS: Patient-specific fall risk factors per assessment: Lines, drains, cords, and generalized weakness Assistance: 2 assist Supervision: Alarms active, audible, and set appropriately. Frequent visual assessments Surveillance: [place] [facility] Patient-specific fall prevention interventions for sensory deficits provided, if applicable: [X] Yes CPG GOAL OUTCOME EVALUATION: Plan of Care - Nelly Manzo RN - 03/17/2020 6:34 AM EDT Problem: Patient Care Overview Goal: Plan of Care Review Outcome: Ongoing (Interventions Implemented as Appropriate) ? 03/17/20 0630 Coping/Psychosocial Plan Of Care Reviewed With patient;spouse Plan of Care Review Progress progress towards functional goals is fair ?? OUTCOME EVALUATION NOTE: ?? OUTCOME SUMMARY: Pt alert and oriented x4, on HFNC at 50% up until about 0600, when he dropped his sat after using his meds and talking. Now bumped to 60% O2. PERRLA. VSS. UOP good, dubois in situ o/a acute retention. Bowel meds were administered. (Per patient, he sometimes goes several weeks without a bowel movement).Will continue to monitor.. ? PLAN MOVING FORWARD: Continue to wean Oxygen as tolerated ?? INDIVIDUALIZED FALL PREVENTION INTERVENTIONS: ?? Patient-specific fall risk factors per assessment: [current deficits]: SOB/ Activity intolerance/ Oxygen dependence/ devices and cords. ?? Assistance [level of assistance required for transfers and ambulation]: 1-2 assist ?? Supervision [direct monitoring required during toileting and ADLs]: Hands-on, frequent rounding ?? Surveillance [continuous indirect monitoring]: ICU stanislav. ?? Patient-specific fall prevention interventions for sensory deficits provided, if applicable: [X] N/A ? CPG GOAL OUTCOME EVALUATION: Ongoing lan of Care - Nelly Manzo RN - 03/16/2020 6:37 AM EDT Problem: Patient Care Overview Goal: Plan of Care Review Outcome: Ongoing (Interventions Implemented as Appropriate) 03/16/20 0616 Coping/Psychosocial Plan Of Care Reviewed With patient;spouse Plan of Care Review Progress progress towards functional goals is fair OUTCOME EVALUATION NOTE: OUTCOME SUMMARY: Pt alert and oriented x4, on HFNC mostly between 60 and 70%. He was occasionally bumped up to 80% for desaturation which occurred during activities. He was able to stay off the CPAP machine all night. PERRLA. VSS. Uses the bedside urinal independently, UOP good. Bowel meds were administered and a soapenema this a.m with fair return. Will continue to monitor.. ?? PLAN MOVING FORWARD: Wean Oxygen as tolerated Gradually increase activity as tolerated to facilitate bowel movement, work with PT. INDIVIDUALIZED FALL PREVENTION INTERVENTIONS: Patient-specific fall risk factors per assessment: [current deficits]: SOB/ Activity intolerance/ Oxygen dependence/ devices and cords. Assistance [level of assistance required for transfers and ambulation]: 1-2 assist Supervision [direct monitoring required during toileting and ADLs]: Hands-on, frequent rounding Surveillance [continuous indirect monitoring]: ICU stanislav. Patient-specific fall prevention interventions for sensory deficits provided, if applicable: [X] N/A CPG GOAL OUTCOME EVALUATION: Ongoing Goal: Fall Prevention-Safe Patient Handling Outcome: Ongoing (Interventions Implemented as Appropriate) 03/15/20179903/15/20199903/16/20599 Activity Activity Type -- -- activity adjusted per tolerance Activity Assistance Provided assistance, 2 people -- -- Assistive Device Utilized -- oxygen -- [place] Fall Risk History of Falling -- 0 -- Secondary Diagnosis -- 15 -- Ambulatory Aids -- 15 -- Intravenous Therapy/Heparin/Saline Lock -- 0 -- Gait/Transferring -- 0 -- Mental Status -- 0 -- Score -- 30 -- OTHER [place] Fall Risk -- Med -- Restraint Interventions Safety Promotion/Fall Prevention -- -- safety round/check completed Positioning Body Position -- -- with 1-person assist Goal: Infection Control Outcome: Ongoing (Interventions Implemented as Appropriate) 03/15/20199903/16/20599 Safety Interventions Isolation Precautions -- standard precautions maintained Infection Prevention single patient room provided;visitors restricted/screened;rest/sleep promoted;environmental surveillance performed -- Coping Strategies Supportive Measures active listening utilized;verbalization of feelings encouraged;relaxation techniques promoted;positive reinforcement provided;problem solving facilitated;self-care encouraged -- Goal: Discharge Needs Assessment Outcome: Ongoing (Interventions Implemented as Appropriate) 03/16/20615 Discharge Needs Assessment Concerns To Be Addressed no discharge needs identified Problem: Skin Integrity Impairment, Risk/Actual (Adult) Goal: Identify Related Risk Factors and Signs and Symptoms Related risk factors and signs and symptoms are identified upon initiation of Human Response Clinical Practice Guideline (CPG) Outcome: Ongoing (Interventions Implemented as Appropriate) 03/16/20615 Skin Integrity Impairment, Risk/Actual Skin Integrity Impairment, Risk/Actual: Related Risk Factors immobility;infection/disease process;mechanical factors;fluid/nutrition status Goal: Skin Integrity/Wound Healing Patient will demonstrate the desired outcomes by discharge/transition of care. Outcome: Ongoing (Interventions Implemented as Appropriate) 03/16/20615 Skin Integrity Impairment, Risk/Actual (Adult) Skin Integrity/Wound Healing making progress toward outcome Problem: Constipation (Adult) Goal: Identify Related Risk Factors and Signs and Symptoms Related risk factors and signs and symptoms are identified upon initiation of Human Response Clinical Practice Guideline (CPG) Outcome: Ongoing (Interventions Implemented as Appropriate) 03/16/20615 Constipation Constipation: Related Risk Factors impaired mobility;medication effects;weakness/fatigue Signs and Symptoms (Constipation) feeling full;hard dry stool;straining Goal: Effective Bowel Elimination Patient will demonstrate the desired outcomes by discharge/transition of care. Outcome: Ongoing (Interventions Implemented as Appropriate) 03/16/20615 Constipation (Adult) Effective Bowel Elimination making progress toward outcome Goal: Comfort Patient will demonstrate the desired outcomes by discharge/transition of care. Outcome: Ongoing (Interventions Implemented as Appropriate) 03/16/20615 Constipation (Adult) Comfort making progress toward outcome Problem: Activity Intolerance (Adult) Goal: Identify Related Risk Factors and Signs and Symptoms Related risk factors and signs and symptoms are identified upon initiation of Human Response Clinical Practice Guideline (CPG) Outcome: Ongoing (Interventions Implemented as Appropriate) 03/16/20615 Activity Intolerance Activity Intolerance: Related Risk Factors generalized weakness;functional decline;O2 supply/demand imbalance Signs and Symptoms (Activity Intolerance) dyspnea/shortness of breath Goal: Activity Tolerance Patient will demonstrate the desired outcomes by discharge/transition of care. Outcome: Ongoing (Interventions Implemented as Appropriate) 03/16/20615 Activity Intolerance (Adult) Activity Tolerance making progress toward outcome Goal: Effective Energy Conservation Techniques Patient will demonstrate the desired outcomes by discharge/transition of care. Outcome: Ongoing (Interventions Implemented as Appropriate) 03/16/20 0616 Activity Intolerance (Adult) Effective Energy Conservation Techniques making progress toward outcome Problem: Breathing Pattern Ineffective (Adult) Goal: Identify Related Risk Factors and Signs and Symptoms Related risk factors and signs and symptoms are identified upon initiation of Human Response Clinical Practice Guideline (CPG) Outcome: Ongoing (Interventions Implemented as Appropriate) 03/16/20 0616 Breathing Pattern Ineffective Breathing Pattern Ineffective: Related Risk Factors fatigue;infection;underlying condition Breathing Pattern Ineffective: Signs and Symptoms activity intolerance;breathlessness;accessory muscle use Goal: Effective Oxygenation/Ventilation Patient will demonstrate the desired outcomes by discharge/transition of care. Outcome: Ongoing (Interventions Implemented as Appropriate) 03/16/20 06 Breathing Pattern Ineffective (Adult) Effective Oxygenation/Ventilation making progress toward outcome lan of Care - Yvon Starks RN - 03/15/2020 5:38 PM EDT Problem: Patient Care Overview Goal: Plan of Care Review Outcome: Ongoing (Interventions Implemented as Appropriate) 03/15/20 1734 Coping/Psychosocial Plan Of Care Reviewed With patient;spouse Plan of Care Review Progress progress towards functional goals is fair OUTCOME EVALUATION NOTE: OUTCOME SUMMARY: Pt alert and oriented x4, on HFNC between 55 and 70%. Pt intermittently desats with exertion but able to recover. Emesis x1 with zofran given x1 with good effect. Dubois removed, worked with PT, bowel meds and suppository given. Will continue to monitor PLAN MOVING FORWARD: Wean oxygen as tolerated Bowel movement Do exercises from PT and continue to work with PT/OT INDIVIDUALIZED FALL PREVENTION INTERVENTIONS: Patient-specific fall risk factors per assessment: [current deficits]: Generalized weakness Assistance [level of assistance required for transfers and ambulation]: Independent to assistance x2 with walker, hands on Supervision [direct monitoring required during toileting and ADLs]: Independent to assistance x2 with walker, hands on, purposeful rounding Surveillance [continuous indirect monitoring]: Tele, [facility], call butt in reach Patient-specific fall prevention interventions for sensory deficits provided, if applicable: [X] N/A lan of [place] - Gabriel Walker, PT - 03/15/2020 3:30 PM EDT Physical Therapy Note Treatment Number PT: 2 Patient profile: Jeison Cervantes is a 64 y.o. right-handed male admitted on 03/08/[address] 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 Initially on BiPAP and was weaned to HFNC. Interval History: BiPAP last night and on HFNC today weaned to 60% Social History: lives with his , Debora, in [place], [place]; retired; since November, has lost weight andstrength (seen by Dr. Osuna at [facility]) due to autoimmune necrotizing myopathy (?); had seen outpatient PT For 2 sessions prior to onset of pneumonia Home set-up: 1-level Stairs: 2 steps to enter Baseline Mobility: able to ambulate short distances without a device with shuffle gait; unable to get up from a squat and with difficulty getting out of the car; unable to stand for long periods Equipment at home: cane Fall history: no Precautions/Special Considerations: fall risk; low respiratory reserve - pre- oxygenate for standing trials Lines: PIV Activity Orders: as tolerated Diet: regular ?? Mobility and Positioning Recommendations: ?? Please encourage up in bed-chair intermittently during the day. ?? Overhead lift to chair daily and for meal times as able. ?? Encourage bed level exercises Subjective: I am pretty tired after yesterday. I felt like this after my last outpatient PT session, too. I don't have much of an appetite, but they want me to eat. Objective: Patient seen for physical therapy and demonstrated the following: Pain: residual pain to palpation in L medial lower leg since having had DVT in the past; low back pain - felt good to stretch in forward sitting ? Vital Signs: ?? At Rest With Activity SpO2 (HFNC 60-100% and 45 LPM) 96% on 60%/45 LPM HFNC 87-96% turned up from 60% to 100% for stand and recovery afterward, slowly decreased back to 60% during exercises after standing trial BP (MAP) mmHg mmHg HR 80's bpm 80's-90's bpm ?? Mental Status: alert, oriented x 3, motivated, humorous ?? Skin: L LE with mild edema (baseline since DVT and was not responsive to compression stockings in the past) ?? Musculoskeletal: ROM: WNL Strength: shoulder flexion 3+, shoulder abduction 3- and with compensatory trapezius use, elbow flexion 4, elbow extension 4-, hand kennel attendant 4, hip flexion 2, hip abd and add 2, knee extension 3, dorsiflexion 4, plantarflexion 3+ Sensation: intact light touch throughout ?? Bed Mobility: Supine to Sit: used bed-chair option Sit to Supine: used bed-chair option Scooting: supervised with set-up using bed options in supine, pushing LE's through shortened foot ofbed twice during session prior to progressing to bed- chair and after standing ?? Transfers: Sit to Stand: moderate assist of 2 from front of ICU bed, raised slightly, in full bed-chair with footboard removed to walker support; used gait belt and manual assist for bilateral knee extension Stand to Sit: minimal assist of 2 Bed to Chair: dependent overhead lift ?? Gait: unable ?? Balance: Sitting Static: good Sitting Dynamic: good for anterior/posterior and lateral trunk weight shift in upright sitting Standing Static: poor; moderate assist of 2 with walker with manual assist for knee extension stability Standing Dynamic / Gait: unable ?? Therex: performed brief P/AAROM for LE's prior to standing trial; reviewed handouts for PROM and AROM with patient and his after standing; with patient in semi-supine, instructed while performed PROM exercises ?? Education: Patient and his have been educated on Exercise, use of bed controls for optimal positioning to protect 's back while she assists with exercise, Safety, Activity pacing/Energy conservation, Role of therapy and Discharge planning and demonstrated and verbalized understanding but willbenefit from reinforcement. ?? Patient status, treatment, and mobility recommendations discussed with nursing. Assessment: Jeison Cervantes was seen today for physical therapy treatment session for continuation of POC. Although somewhat more fatigued today and with nausea this morning, Channing tolerated upright sitting and was able to be assisted to body liner PT session this afternoon. He was resting on 60% HFNC and was pre- oxygenated and kept at 100% for the exertion of a standing trial. Desaturated to 87% but tolerated better than yesterday and with better recovery. Continues to need significant assist to stand, so overhead lift is recommended for transfer to chair, and he would benefit from opportunity to be out of bed, sit upright for meals, and be able to stretch his low back with forward leaning. His , Debora, was instructed in carryover ROM exercises to perform over the next few days. Discussed pacing activity throughout the day in order to avoid excessive fatigue. Pt will benefit from ongoing therapeutic interventions to achieve therapy goals. Discharge Recommendations: Based on the current findings, Anticipated Discharge Disposition: inpatient acute rehabilitation when medically ready for hospital discharge. Consult Recommendations: No other consults recommended at this time. Equipment needs: to be determined Physical Therapy Goals: To be achieved by 03/28/20: ?? 1. Pt. to demonstrate knowledge of safety limitations and precautions and will appropriately requestassistance for functional activities and to mobilize. 2. Patient and to demonstrate understanding of appropriate exercises. 3. Pt. to perform bed mobility with supervision. 4. Pt. to perform sit to stand transfers with supervision using a front wheeled walker. 5. Pt. to ambulate at least 75 feet with supervision using a front wheeled walker. 6. Pt. to ambulate up/down 2 step/stairs using one rail with CGA. 7. Family or caregiver to demonstrate understanding of therapeutic interventions to support the careof the patient. 8. Pt will tolerate progression towards upright with stable vital signs. Plan: Therapy Frequency: 3-5 times/wk for therapy interventions as outlined in initial evaluation. Patient agrees with plan as stated. Time IN / OUT: 2:30-3:30 Total Evaluation Minutes, Physical Therapy: 60(functional mobility, exercise, pt/family ed) GABRIEL WALKER, PT Pager: [phone] Physical Therapy Inpatient Rehabilitation Department onsult Sera - Nahomi Altman RN - 03/14/2020 9:11 PM EDT Infiltration/Extravasation Scale Jeison Cervantes [id number] Infiltration appearance: VAS summoned to assess PIV in left cephalic vein, wrist area. Bactrim infused & completed approx 10:10am and as the day continued the area at and proximal to insertion sitebecame slightly red, swollen, spongy to palpation. Patient denied pain. Infiltration harm 25% for this extremity LEFT FOREARM Based on measurement calculation (greatest measurement [ 18 cm ] X divided by length of extremity [71 cm] multiplied by 100= 25.35 %) Considerations and Carpenter: Consider the following: If the percentage of limb affected is <5% then select 1 If the percentage of limb affected is 6-25% then select 2 If the percentage of limb affected is 26-49% then select 3 If the percentage of limb affected is > 50% then always select 4 0 No symptoms 1 Skin blanched Edema < 1 inch (2.5 cm) in any direction Cool to touch With or without pain 2 Skin blanched Edema 1 to 6 inches (2.5 to 15 cm) in any direction Cool to touch With or without pain 3 Skin blanched, translucent Gross edema > 6 inches (15 cm) in any direction Cool to touch Mild to moderate pain Possible numbness 4 Skin blanched, translucent Skin tight, leaking Skin discolored, bruised, swollen Gross edema > 6 inches in any direction Deep pitting tissue edema Circulatory impairment Moderate to severe pain Skin Blisters Skin Necrosis/Breakdown/Sloughing Infiltration appearance score: GRADE 2 Medication Name infiltrated is BACTRIM which is a (n) UNKNOWN Location of infiltration: LEFT FOREARM, BOTH ANTERIOR and POSTERIOR Measurement in cm of length and width of affected area---Affected extremity *LENGTH: 12 cm WIDTH: 18cm Measurement of Circumference in cm of Infiltrated area of affected extremity 19.5 cm Measurement of Circumference in cm of Unaffected extremity 18.5 cm (at same location as affected extremity) Pulses present on affected extremity YES Medicated treatment given per policy/ order: not medication. Extremity elevated on two pillows and warm pack applied on both anterior and posterior areas of concern Plan for continued monitoring of infiltration/extravasation Name of MD contacted paged [phone] 9:11 PM Name of RN contacted PATTIE 9:11 PM Name of Pharmacist if consulted SAMUEL 9:11 PM Plastics Provider contacted: NO 9:11 PM Name of Plastics MD (if consulted) N/A (Mandatory photo for infiltrations/ extravasations scoring a stage 2 or greater, but recommended forstage 1. Include measuring tape and identifier in the photo) BLUEPRINT CUTTER CARING FOR THIS PATIENT WILL CONTINUE TO MONITOR AND WILL ASSUME CARE, VASCULAR ACCESS WILL NOT FOLLOW THIS EVENT AT THE SIGNING OF THIS NOTE. lan of [place] - Gabriel Walker, PT - 03/14/2020 1:05 PM EDT Physical Therapy Evaluation Patient profile: Jeison Cervantes is a 64 y.o. right-handed male admitted on 03/08/[address] 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 Initially on BiPAP and was weaned to HFNC. Patient with the following active problems: Past Medical History: Diagnosis Date ??? 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 Venous insufficiency of left lower extremity 05/04/2018 Past Surgical History: Procedure Laterality Date ??? PRO BIOPSY MUSCLE DEEP Left 12/16/2018 BIOPSY OF MUSCLE, DEEP, LOWER EXTREMITY (WRVU 2.35) performed by Leon Osuna MD at [facility] Active Non-Hospital Problems Diagnosis ??? Spinal stenosis of lumbar region ??? Muscle weakness of lower extremity ??? Venous insufficiency of left lower extremity ??? Asymptomatic varicose veins of left lower extremity Social History: lives with his , Debora, in [place], [place]; retired; since November, has lost weight andstrength (seen by Dr. Osuna at [facility]) due to myositis?; had seen outpatient PT For 2 sessions prior to onset of pneumonia Home set-up: 1-level Stairs: 2 steps to enter Baseline Mobility: able to ambulate short distances without a device with shuffle gait; unable to get up from a squat and with difficulty getting out of the car; unable to stand for long periods Equipment at home: cane Fall history: no Precautions/Special Considerations: fall risk; low respiratory reserve Lines: dubois; PIV Activity Orders: as tolerated Diet: regular Mobility and Positioning Recommendations: ?? Please encourage up in bed-chair or overhead lift to chair for meal times as able. ?? Encourage bed level exercises Subjective: ???You have given us hope. I didn't think I would be able to stand.?? Objective: Pt seen for evaluation today. Pain: residual pain in L medial lower leg since having had DVT Vital Signs: At Rest With Activity SpO2 (HFNC 65-100%) 93% on 70% HFNC; RT turned down to 65% during session 84-96% turned up from 65% to 75% for in preparation for stand, then 80%-100% for stand and recovery after BP (MAP) mmHg mmHg HR 80's bpm 80's-90's bpm Mental Status: alert, oriented to person, place, and time Skin: L LE with mild edema (baseline since DVT and was not responsive to compression stockings in the past) Musculoskeletal: ROM: WNL Strength: shoulder flexion 3+, shoulder abduction 3- and with compensatory trapezius use, elbow flexion 4, elbow extension 4-, hand kennel attendant 4, hip flexion 2-, hip abd and add 2, knee extension 3, dorsiflexion 4, plantarflexion 3+ Sensation: intact light touch throughout Bed Mobility: Supine to Sit: used bed-chair option Sit to Supine: used bed-chair option Scooting: supervised with set-up using bed options in supine, pushing LE's through shortened foot ofbed Transfers: Sit to Stand: maximal assist of 2 from front of ICU bed in full bed-chair with footboard removed to walker support Stand to Sit: minimal assist of 2 Bed to Chair: dependent overhead lift Gait: unable Balance: Sitting Static: good Sitting Dynamic: good for anterior/posterior and lateral trunk weight shift in upright sitting Standing Static: poor; moderate assist of 2 with walker with manual assist for knee extension stability Standing Dynamic / Gait: unable Therex: performed P/AA/AROM for UE's and LE's including overhead reach, rowing motion, bridging, hip/knee flexion/extension, hip abd/add, hip IR/ER, DF/PF, leg presses through foot of bed in supine, knee extension in upright sitting and instructed in AAROM for LE's to perform independently Education: patient and his have been educated on Exercise, Safety , Activity pacing/Energy conservation, Role of therapy and Discharge planning and needs reinforcement. Patient status, treatment, and mobility recommendations discussed with nursing. Assessment: Jeison Cervantes was seen today for physical therapy evaluation. He presents with impairments in the following: strength, functional mobility, standing balance, gait, and respiratory status. He tolerated all bed level exercise very well and FiO2 was turned down from 70% to 65% by RT during session, however he required up-titration for the exertion of standing and recovery. Required 2-person assist to stand for about 30 seconds and was tachypneic with desaturation afterward. Recovered on 100% FiO2 after couple minutes sitting rest and was able to be placed back to 65% at the end of the session. His was present, supportive and willing to help with carryover ROM exercises. The pt would benefit from skilled therapy services while in the hospital to maximize functional abilities. Discharge Recommendations: Based on the current findings, Anticipated Discharge Disposition: inpatient acute rehabilitation(versus home with home health and assist from family ) depending on progress and if goals below met when medically ready for hospital discharge. Consult Recommendations: No other consults recommended at this time. Equipment needs: ongoing assessment Goals: To be achieved by 03/28/20: 1. Pt. to demonstrate knowledge of safety limitations and precautions and will appropriately requestassistance for functional activities and to mobilize. 2. Patient and to demonstrate understanding of appropriate exercises. 3. Pt. to perform bed mobility with supervision. 4. Pt. to perform sit to stand transfers with supervision using a front wheeled walker. 5. Pt. to ambulate at least 75 feet with supervision using a front wheeled walker. 6. Pt. to ambulate up/down 2 step/stairs using one rail with CGA. 7. Family or caregiver to demonstrate understanding of therapeutic interventions to support the careof the patient. 8. Pt will tolerate progression towards upright with stable vital signs. Plan: Therapy Frequency: 3-5 times/wk for therapy including balance training, bed mobility training, gait training, home exercise program, patient/family education, range of motion, stair training, strengthening and transfer training. Patient/family understand and agree with plan as stated above. 2017 PT Evaluation Code Rationale: ?? Diagnosis & Pertinent Co-Morbidities, personal factors, and present illness affecting Plan ofCare: (see above); Additional personal factors or co- morbidities that impact plan: ?? Total # of Factors: 0 1-2 3+ x ?? Examination of body system impairments, functional limitations and behaviors, and/or participation restrictions. Addressing 1-2 elements Addressing 3 + elements Addressing 4 + elements x ?? Clinical presentation: See assessment above. Stable/Uncomplicated Evolving/Fluctuating Symptoms Unstable/Unpredictable x ?? Clinical decision making of high complexity based on pt's functional performance as outlined in this evaluation. Time IN / OUT: 11:45-1:05 Total Evaluation Minutes, Physical Therapy: 75(evaluation, exercise, pt/family ed) GABRIEL WALKER, PT Pager: [phone] Physical Therapy Inpatient Rehabilitation Department lan of Care - Tanisha Otero RN - 03/14/2020 2:41 AM EDT Problem: Patient Care Overview Goal: Plan of Care Review Outcome: Ongoing (Interventions Implemented as Appropriate) 03/14/20 0236 Coping/Psychosocial Plan Of Care Reviewed With patient;spouse Plan of Care Review Progress progress toward functional goals is gradual OUTCOME EVALUATION NOTE: OUTCOME SUMMARY: A&Ox4, no sedation/pain gtts infusing/ Pt denies pain. Oxygenation seems to be improving- tolerating CPAP for majority of shift, titrating down to FiO2 60% maintaining sats greater than 90%. Oxygenreserve appears to be improving as well- recovering faster than previous evening. Clear liquid dietmaintained. Dubois in place with adequate UO. No BM this shift- consider increased bowel regimen. Bactrium continued. Spouse updated. PLAN MOVING FORWARD: Increase nutrition and mobility. Continue to closely monitor oxygen. Surveillance [continuous indirect monitoring]: ICU Saray monitor lan of Care - Lia Knott RN - 03/13/2020 7:00 PM EDT Problem: Patient Care Overview Goal: Plan of Care Review Outcome: Ongoing (Interventions Implemented as Appropriate) 03/13/20 1851 Coping/Psychosocial Plan Of Care Reviewed With patient Plan of Care Review Progress progress toward functional goals is gradual OUTCOME EVALUATION NOTE: OUTCOME SUMMARY: Pt alert and oriented x4. Denies pain. Pt on HFNC and CPAP throughout the day. FiO2 90-100%. Low reserve, patient becomes quickly hypotensive and tachypneic with minimal exertion. NSR on tele and stable BP. Tmax 37.6. Dubois in place with good output. Clear liquid diet. No BM this shift- pt has not hadbowel movement since 03/07. Bowel regimen initiated. ?? PLAN MOVING FORWARD: Continue to wean oxygen as tolerated. Advance diet as tolerated. INDIVIDUALIZED FALL PREVENTION INTERVENTIONS: Patient-specific fall risk factors per assessment: [current deficits]: Short of breath. Multiple lines and tubes. Assistance [level of assistance required for transfers and ambulation]: Bedrest. 2 assist with turns. Supervision [direct monitoring required during toileting and ADLs]: Frequent, purposeful rounding. Surveillance [continuous indirect monitoring]: [place] ICU monitoring Patient-specific fall prevention interventions for sensory deficits provided, if applicable: [X] Yes CPG GOAL OUTCOME EVALUATION: Plan of Care - Gabriel Walker PT - 03/13/2020 3:50 PM EDT Physical Therapy Note 03/13/20 1550 Rehab Evaluation Document Type contact Evaluation Not Performed Comment PT consult received but evaluation deferred as patient has minimal respiratory reserve per RN and is on BiPAP. Will continue to monitor for readiness to initiate PT. Gabriel Walker PT Pager [phone] lan of [place] - Jessica Servin OT - 03/13/2020 3:30 PM EDT OT Contact Note 03/13/20 1540 Rehab Evaluation Document Type contact Total Evaluation Minutes, Occupational Therapy 0 Evaluation Not Performed Comment OT consult received. EDH reviewed. Pt is requiring increased oxygensupport and desaturating with minimal activity. Pt is not appropriate for OT at this time. OT will continue to follow and intervene when appropirate. Thank you for this consult. AME Santiago/Nuzhat Pager: [phone] lan of [place] - Tanisha Otero RN - 03/13/2020 6:02 AM EDT Problem: Patient Care Overview Goal: Plan of Care Review Outcome: Ongoing (Interventions Implemented as Appropriate) 03/13/20 0557 Coping/Psychosocial Plan Of Care Reviewed With patient Plan of Care Review Progress no change OUTCOME EVALUATION NOTE: OUTCOME SUMMARY: Pt alert and oriented x4, no continuous pain/sedation medication infusing. 1x dose PRN dilaudid given. Pt transitioned between HFNC and CPAP throughout the night. Encouraged to wear CPAP as long as possible, but pt requested breaks throughout the night. FiO2 70-100%. Poor oxygen reserve- quickly desats with minimal movement to the 70s/80s requiring increased FiO2 and focused breathing to recover. NSRand normotensive. Tmax 37.9, PRN tylonel administered with good effect. Remained NPO, requesting oral swabbing when not on CPAP. Dubois in place with good output. No BM this shift- pt has not had bowel movement since 03/07. PLAN MOVING FORWARD: Continue to closely monitor oxygenation/oxygen support. Consider reintubation if oxygenation continues to be an issue. INDIVIDUALIZED FALL PREVENTION INTERVENTIONS: Patient-specific fall risk factors per assessment: [current deficits]: Dyspnea on exertion, sig change in vital signs with repositioning, generalized weakness Assistance [level of assistance required for transfers and ambulation]: 2A Supervision [direct monitoring required during toileting and ADLs]: q hourly rounding, bed alarm inuse Surveillance [continuous indirect monitoring]: ICU Saray monitor ed Student Consult - Marielle López - 03/12/2020 7:56 AM EDT Med Student Rheumatology Consult Note Patient Name: Jeison Cervantes Date of Admission: 03/08/2020 (Hospital day 4) ID: Jeison Cervantes is a 64 y.o. 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 48h Events: PJP stain of BAL fluid was positive. Atypical pna coverage d/c this morning. Continued bactrim (15 mg/kg/day) and prednisone (with plan to taper over 21 days: 40 mg bid x5 days, 40 mg qd x5 days, 20 mgqd x11 days). No evidence of active myositis at the moment (CK 41 on 03/08), so immunosuppressants (mtx, cellcept) held with plan to restart on outpatient basis after PJP resolved. Patient extubated to HFNC (50-60 L/min) on Thursday and has been saturating in the low 90s. Was placedon BiPAP with improvement in sats to high 90s. Patient reports breathing feels better. Was febrile last night and this morning, with Tmax 39. Has received Tylenol (twice last night, once this morning) but remains febrile. UA showed trace blood but negative for nitrites, leukocytes. WBC 10.2, ANC 9.29; on repeat CBC, WBC 8.5 and ANC 7.6. Blood cultures pending. No muscle pain but feels extremely weak. ROS otherwise unremarkable. Med List Scheduled Continuous PRN Rheum Prednisone 40 mg PO bid Folic acid 1000 mcg PO qd CV Pulm GI Pantoprazole 40 mg PO qd Renal/FEK Heme Rivaroxaban 20 mg PO qd ID [id number]-[id number] 15 mg/kg/day IV q6h Endo Insulin (Lispro) Uro Finasteride 5 mg Tamsulosin 0.4 mg Neuro Vitals Last value Range last 24hrs Temperature Temp: (!) 38.9 ??C (102 ??F) Temp: [37.5 ??C (99.5 ??F)-39 ??C (102.2 ??F)] Heart Rate Heart Rate: 75 Heart Rate: [73-105] Blood Pressure BP: 107/54 BP: (107-137)/(54-70) Respiratory Rate Resp: 30 Resp: [16-40] SpO2 SpO2: 98 % SpO2: [87 %-98 %] Weight Weight: 103.6 kg (228 lb 6.3 oz) Admit weight: 103.6 kg Fluid Balance: Intake/Output Summary (Last 24 hours) at 03/12/2020 1410 Last data filed at 03/12/2020 1200 Gross per 24 hour Intake 3494 ml Output 4200 ml Net -706 ml Last Weight: Patient Vitals for the past 168 hrs: Weight 03/08/20 2135 103.6 kg (228 lb 6.3 oz) Physical Exam Gen A&Ox3, NAD, interactive, wearing biPAP Neuro Not examined CV RRR, nl S1 S2 Pulm Only anterior love auscultated; no crackles or wheezing Abdom Not examined Derm No rashes MSK 3/5 strength in hand kennel attendant as well as upper and lower extremity Laboratory Studies: Recent Results (from the past 24 hour(s)) POCT Glucose Result Value Ref Range POC Glucose 186 65 - 199 mg/dL POCT Glucose Result Value Ref Range POC Glucose 176 65 - 199 mg/dL POCT Glucose Result Value Ref Range POC Glucose 179 65 - 199 mg/dL Urinalysis with reflex Culture Result Value Ref Range Glucose UA Negative Negative mg/dL Protein UA Negative Negative mg/dL Bilirubin UA Negative Negative mg/dL Urobilinogen UA Normal Normal mg/dL pH UA 7.0 5.0 - 8.0 Blood UA Trace (A) Negative mg/dL Ketones UA Negative Negative mg/dL Nitrite UA Negative Negative Leukocytes UA Negative Negative mcL Appearance UA Clear Clear Spec Parnell UA 1.007 1.006 - 1.030 Color UA Yellow Yellow Culture Reflexed No Urinalysis Microscopic Exam Result Value Ref Range RBC UA 4 (H) 0 - 3 /HPF WBC UA 1 0 - 3 /HPF BMP w/fasting Glucose Result Value Ref Range Glucose Fasting 181 (H) 65 - 99 mg/dL BUN 19 10 - 20 mg/dL Creatinine 0.74 (L) 0.80 - 1.50 mg/dL Sodium 132 (L) 135 - 145 mmol/L Potassium 4.6 3.5 - 5.0 mmol/L Chloride 96 (L) 98 - 107 mmol/L CO2 23 22 - 31 mmol/L Anion Gap 13 5 - 15 mmol/L Calcium 8.7 8.5 - 10.5 mg/dL eGFR 97 >=60 mL/min/1.73 m?? eGFR 113 >=60 mL/min/1.73 m?? Hemogram Result Value Ref Range WBC 8.5 4.0 - 9.5 x10(3)/mcL RBC 3.30 (L) 4.58 - 5.54 x10(6)/mcL Hemoglobin 10.3 (L) 13.7 - 16.5 gm/dL Hematocrit 31.3 (L) 40.5 - 48.5 % MCV 94.8 (H) 82.9 - 93.1 fL MCH 31.2 27.5 - 32.1 pg MCHC 32.9 32.0 - 35.7 gm/dL Platelets 256 145 - 357 x10(3)/mcL RDWSD 57.1 (H) 36.0 - 45.0 fL RDWCV 16.6 (H) 11.4 - 13.8 % MPV 8.9 7.6 - 12.9 fL nRBC % Auto 2.0 % nRBC Abs Auto 0.170 (H) 0.000 - 0.000 x10(3)/mcL Differential, Automated Result Value Ref Range Neutrophils % 89.0 % Neutr Abs (ANC) 7.60 (H) 1.70 - 6.10 x10(3)/mcL Lymphocytes % 3.7 % Lymphocytes Abs 0.3 (L) 0.9 - 3.2 x10(3)/mcL Monocytes % 1.5 % Monocyte Abs 0.1 (L) 0.3 - 0.9 x10(3)/mcL Eosinophils % 0.0 % Eosinophils Abs 0.0 0.0 - 0.4 x10(3)/mcL Basophils % 0.4 % Basophils Abs 0.0 0.0 - 0.1 x10(3)/mcL Immature Gran % 5.40 % Jessica Gran Abs 0.46 (H) 0.00 - 0.04 x10(3)/mcL pro-Brain Natriuretic Peptide Result Value Ref Range ProBNP 80 <=125 pg/mL Scan, Peripheral Blood Result Value Ref Range Plat Estimate Normal RBC Morphology Normal Toxic Granulation Present BLOOD GAS 2 ARTERIAL Result Value Ref Range pH Art 7.54 (H) 7.35 - 7.45 pCO2 Art 27 (L) 35 - 45 mmHg pO2 Art 64 (L) 85 - 104 mmHg HCO3 Art 23.0 20.0 - 26.0 mmol/L BE Art 0.4 -3.0 - 3.0 mmol/L Hgb Blood Gas 11.6 (L) 13.7 - 16.5 gm/dL O2HB Art 92.6 (L) 94.0 - 97.0 % COHB Art 0.1 % METHB Art 0.7 <=1.5 % Na Whole Blood 129 (L) 135 - 145 mmol/L K Whole Blood 4.6 3.5 - 5.0 mmol/L ICa Whole Blood 1.16 1.15 - 1.33 mmol/L CL Whole Blood 100 98 - 107 mmol/L Gluc Whole Bld 239 (H) 65 - 199 mg/dL Lactate WB 2.1 0.5 - 2.2 mmol/L FIO2 Art 80 % PF Ratio Art 80 POCT Glucose Result Value Ref Range POC Glucose 274 (H) 65 - 199 mg/dL POCT Glucose Result Value Ref Range POC Glucose 204 (H) 65 - 199 mg/dL POCT Glucose Result Value Ref Range POC Glucose 145 65 - 199 mg/dL Assessment & Plan Jeison Cervantes is a 64 y.o. 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 Has developed a new onset fever; workup ongoing. # New onset fever ?? Leukocytosis with unremarkable UA and blood cx pending ?? Likely due to PJP vs. additional superimposed infectious process # PJP ?? Continue Bactrim ?? Continue prednisone taper as described above # Fatigue, weight/muscle loss 2/2 underlying autoimmune necrotizing myositis ?? Has received workup for myositis, neuropathy, cancer; all non-diagnostic ?? Although CK has been trending down with MTX and cellcept, patient has not experienced any reduction of weakness so goal is to determine medication regimen that also improves pt symptoms ?? Continue workup and management on outpatient basis Marielle Maribel, 4 03/12/20 2:10 PM Associated attestation - Suzy Hernandez DO - 03/13/2020 8:59 AM EDT ATTENDING ADDENDUM The patient's history was reviewed, and I interviewed and examined the patient with Marielle. I agree with her summary, findings, and plan. Jeison Cervantes is a 64 y.o. 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 Hold immunosuppression at this time. We will plan to follow up in the outpatient setting. Consult Note - Cassius Britton, [facility] - 03/12/2020 1:24 AM EDT Clinical Pharmacist Note-Vanc Jeison Cervantes [id number] Jeison Cervantes is a 64 y.o. male who is starting antibiotic therapy which includes intravenous vancomycin. Today is day 1 of treatment. Based on a review of the patient???s chart and/or conversation with the patient???s providers vancomycin is being used for empiric coverage of pneumonia with a t argeted goal of 15 - 20 mcg/mL. The following Pharmacokinetic data has been evaluated: Wt Readings from Last 1 Encounters: 03/08/20 103.6 kg (228 lb 6.3 oz) Ht Readings from Last 1 Encounters: 03/08/20 177.8 cm (5' 10) No results found for: VANCOTR Creatinine (mg/dL) Date Value 03/11/2020 0.79 (L) Estimated Creatinine Clearance: 113.8 mL/min (A) (based on SCr of 0.79 mg/dL (L)). (Cockcroft &Gault calculation) After a review of this information the following pharmacokinetic parameters have been estimated: Half-Life (T1/2) = 8 hours Elimination rate (Ke) = 0.0853 hr-1 Volume of distribution (Vd) = 72 Liters Dosing recommendations: ? Based on this information a dose of 2,000 mg NOW, followed by 1,000 mg every 8 hours, to start at 0900 (time) on 03/13/2020 should achieve an estimated trough level of 15 - 20 mcg/mL. Monitoring recommendations: ? A new steady state level should be achieved after 4 half-lives. I suggest rechecking a vancomycintrough level (30 minutes prior to a scheduled dose) at 0830 (time) on 03/13/2020. We will continue to monitor the patient as long as he/she remains on vancomycin therapy. Please watch SCr, BUN and fluid status closely. Please page the care area pharmacist with any questions you may have. Alternately, during off-hours you may call [phone] to contact a pharmacist. CASSIUS BRITTON RPH lan of [facility] [place] - Emelia Ramos RN - 03/11/2020 5:50 PM EDT Problem: Patient Care Overview Goal: Plan of Care Review Outcome: Ongoing (Interventions Implemented as Appropriate) 03/11/201743 Coping/Psychosocial Plan Of Care Reviewed With patient;spouse Plan of Care Review Progress improving OUTCOME EVALUATION NOTE: OUTCOME SUMMARY: Pt. Has no c/o pain. A&O x4. Pt. Was extubated 1000 to HFNC 70%, weaned down now to 55%, tolerating it well. Febrile with tmax 38, administered tylenol at 1500. Able to swallow fluids and solids. Reg. Diet ordered, doing well with eating. PT/OT ordered. PLAN MOVING FORWARD: PT/OT, abx and prednisone 20 days, monitor/wean O2 as tolerated. Monitor temp INDIVIDUALIZED FALL PREVENTION INTERVENTIONS: Patient-specific fall risk factors per assessment: [current deficits]: Weak, LDAs Assistance [level of assistance required for transfers and ambulation]: bedrest Supervision [direct monitoring required during toileting and ADLs]: Frequent visual checks Surveillance [continuous indirect monitoring]: Bed alarm Patient-specific fall prevention interventions for sensory deficits provided, if applicable: [X] N/A CPG GOAL OUTCOME EVALUATION: Goal: Fall Prevention-Safe Patient Handling Outcome: Ongoing (Interventions Implemented as Appropriate) 03/09/20 1000 03/10/20199903/11/20 0800 Activity Activity Type -- -- bedrest Activity Assistance Provided -- -- assistance, 2 people Assistive Device Utilized -- oxygen -- [place] Fall Risk History of Falling -- -- 0 Secondary Diagnosis -- -- 15 Ambulatory Aids -- -- 0 Intravenous Therapy/Heparin/Saline Lock -- -- 20 Gait/Transferring -- -- 0 Mental Status -- -- 0 Score -- -- 35 OTHER [place] Fall Risk -- -- Med Restraint Interventions Safety Promotion/Fall Prevention -- -- -- Positioning Body Position independent -- -- 03/11/20 1600 Activity Activity Type -- Activity Assistance Provided -- Assistive Device Utilized -- [place] Fall Risk History of Falling -- Secondary Diagnosis -- Ambulatory Aids -- Intravenous Therapy/Heparin/Saline Lock -- Gait/Transferring -- Mental Status -- Score -- OTHER [place] Fall Risk -- Restraint Interventions Safety Promotion/Fall Prevention activity supervised;fall prevention program maintained;safety round/check completed Positioning Body Position -- Goal: Infection Control Outcome: Ongoing (Interventions Implemented as Appropriate) 03/11/201743 Safety Interventions Isolation Precautions standard precautions maintained Infection Prevention environmental surveillance performed;rest/sleep promoted;single patient room provided Coping Strategies Supportive Measures relaxation techniques promoted;self-care encouraged;verbalization of feelings encouraged;active listening utilized;positive reinforcement provided Problem: Skin Integrity Impairment, Risk/Actual (Adult) Goal: Identify Related Risk Factors and Signs and Symptoms Related risk factors and signs and symptoms are identified upon initiation of Human Response Clinical Practice Guideline (CPG) 03/11/20 1744 Skin Integrity Impairment, Risk/Actual Skin Integrity Impairment, Risk/Actual: Related Risk Factors edema;immobility;fluid/nutrition status;infection/disease process Signs and Symptoms (Skin Integrity Impairment) edema Goal: Skin Integrity/Wound Healing Patient will demonstrate the desired outcomes by discharge/transition of care. Outcome: Ongoing (Interventions Implemented as Appropriate) 03/11/20 1744 Skin Integrity Impairment, Risk/Actual (Adult) Skin Integrity/Wound Healing achieves outcome lan of Care - Emelia Ramos RN - 03/10/2020 5:23 PM EDT Problem: Patient Care Overview Goal: Plan of Care Review Outcome: Ongoing (Interventions Implemented as Appropriate) 03/10/20 1717 Coping/Psychosocial Plan Of Care Reviewed With patient;spouse Plan of Care Review Progress progress towards functional goals is fair OUTCOME EVALUATION NOTE: OUTCOME SUMMARY: Pt sedated on Propofol. RASS -2, moves all extremities and interacts/communicates with staff. Remains in PS 50%. Pt. Was retaining urine this am, bladder scan for 1000 ml, made provider aware, insertedfoley. Administered 20 lasix with good output. PLAN MOVING FORWARD: Bactrim, prednisone for 20 days, wean vent settings and sedation as tolerated, extubate possible tomorrow. INDIVIDUALIZED FALL PREVENTION INTERVENTIONS: Patient-specific fall risk factors per assessment: [current deficits]: Weak, Sedated, LDAs Assistance [level of assistance required for transfers and ambulation]: bedrest Supervision [direct monitoring required during toileting and ADLs]: Frequent visual checks Surveillance [continuous indirect monitoring]: Bed alarm Patient-specific fall prevention interventions for sensory deficits provided, if applicable: [X] N/A CPG GOAL OUTCOME EVALUATION: Goal: Fall Prevention-Safe Patient Handling Outcome: Ongoing (Interventions Implemented as Appropriate) 03/09/20 1000 03/09/20199903/10/20 0800 Activity Activity Type -- -- bedrest Activity Assistance Provided -- -- assistance, 2 people Assistive Device Utilized -- oxygen -- Walton Fall Risk History of Falling -- -- 0 Secondary Diagnosis -- -- 15 Ambulatory Aids -- -- 0 Intravenous Therapy/Heparin/Saline Lock -- -- 20 Gait/Transferring -- -- 0 Mental Status -- -- 15 Score -- -- 50 OTHER Walton Fall Risk -- -- High Restraint Interventions Safety Promotion/Fall Prevention -- -- -- Positioning Body Position independent -- -- 03/10/20 1600 Activity Activity Type -- Activity Assistance Provided -- Assistive Device Utilized -- Walton Fall Risk History of Falling -- Secondary Diagnosis -- Ambulatory Aids -- Intravenous Therapy/Heparin/Saline Lock -- Gait/Transferring -- Mental Status -- Score -- OTHER Walton Fall Risk -- Restraint Interventions Safety Promotion/Fall Prevention fall prevention program maintained;safety round/check completed Positioning Body Position -- Goal: Infection Control Outcome: Ongoing (Interventions Implemented as Appropriate) 03/10/20 1717 Safety Interventions Isolation Precautions standard precautions maintained Infection Prevention rest/sleep promoted;environmental surveillance performed;single patient room provided Coping Strategies Supportive Measures relaxation techniques promoted;positive reinforcement provided;active listening utilized Problem: Ventilation, Mechanical Invasive (Adult) Goal: Signs and Symptoms of Listed Potential Problems Will be Absent, Minimized or Managed (Ventilation, Mechanical Invasive) Signs and symptoms of listed potential problems will be absent, minimized or managed by discharge/transition of care (reference Ventilation, Mechanical Invasive (Adult) CPG). Outcome: Ongoing (Interventions Implemented as Appropriate) 03/10/207 Ventilation, Mechanical Invasive Problems Assessed (Mechanical Ventilation, Invasive) all Problems Present (Mechanical Ventilation, Invasive) immobility;inability to wean lan of Care - Emelia Ramos RN - 03/09/2020 5:12 PM EDT Problem: Patient Care Overview Goal: Plan of Care Review Outcome: Ongoing (Interventions Implemented as Appropriate) 03/09/20 1707 Coping/Psychosocial Plan Of Care Reviewed With patient;spouse Plan of Care Review Progress no change OUTCOME EVALUATION NOTE: OUTCOME SUMMARY: Pt. Sedated on Prop. RASS -3, follows commands, moves extremities. In PS 60%, tolerating well. Pt. Was intubated with bedside bronch, previously on HFNC 60%, requiring 100% with activity, very SOB, RAYGOZA. Pt. Tolerated Bronch well, pending specimens. PLAN MOVING FORWARD: Wean sedation and extubate as tolerated, abx, rheumatology consulted. INDIVIDUALIZED FALL PREVENTION INTERVENTIONS: Patient-specific fall risk factors per assessment: [current deficits]: Sedated, SOB, weak Assistance [level of assistance required for transfers and ambulation]: Bed rest Supervision [direct monitoring required during toileting and ADLs]: Frequent visual checks Surveillance [continuous indirect monitoring]: Bed alarm Patient-specific fall prevention interventions for sensory deficits provided, if applicable: [X] N/A CPG GOAL OUTCOME EVALUATION: Goal: Fall Prevention-Safe Patient Handling Outcome: Ongoing (Interventions Implemented as Appropriate) 03/09/20 0407 03/09/20 0800 03/09/20 1000 Activity Activity Type -- activity adjusted per tolerance;bedrest -- Activity Assistance Provided -- assistance, stand-by -- Assistive Device Utilized oxygen -- -- Walton Fall Risk History of Falling -- 0 -- Secondary Diagnosis -- 15 -- Ambulatory Aids -- 0 -- Intravenous Therapy/Heparin/Saline Lock -- 20 -- Gait/Transferring -- 10 -- Mental Status -- 0 -- Score -- 45 -- OTHER Walton Fall Risk -- High -- Restraint Interventions Safety Promotion/Fall Prevention -- -- -- Positioning Body Position -- -- independent 03/09/20 1600 Activity Activity Type -- Activity Assistance Provided -- Assistive Device Utilized -- Walton Fall Risk History of Falling -- Secondary Diagnosis -- Ambulatory Aids -- Intravenous Therapy/Heparin/Saline Lock -- Gait/Transferring -- Mental Status -- Score -- OTHER Walton Fall Risk -- Restraint Interventions Safety Promotion/Fall Prevention fall prevention program maintained;safety round/check completed Positioning Body Position -- Goal: Infection Control Outcome: Ongoing (Interventions Implemented as Appropriate) 03/09/20 1707 Safety Interventions Isolation Precautions standard precautions maintained Infection Prevention rest/sleep promoted;environmental surveillance performed;single patient room provided Coping Strategies Supportive Measures relaxation techniques promoted;positive reinforcement provided Problem: Ventilation, Mechanical Invasive (Adult) Goal: Signs and Symptoms of Listed Potential Problems Will be Absent, Minimized or Managed (Ventilation, Mechanical Invasive) Signs and symptoms of listed potential problems will be absent, minimized or managed by discharge/transition of care (reference Ventilation, Mechanical Invasive (Adult) CPG). Outcome: Ongoing (Interventions Implemented as Appropriate) 03/09/20 1707 Ventilation, Mechanical Invasive Problems Assessed (Mechanical Ventilation, Invasive) all Problems Present (Mechanical Ventilation, Invasive) immobility Consult Note - Suzy Hernandez, DO - 03/09/2020 5:07 PM EDT Jeison Cervantes is a 64 y.o. 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 He first presented to Dr. garcia in 2018 with muscle fatigue and exhaustion after exercise at that visit he was found to have mild hip flexion extension weakness, elevated CPK and nearly 8000, positive MICHAEL, and MRI showing STIR signal of the soleus bilaterally and bilateral STIR signal ofthe gastrocnemius, he underwent biopsy in December 2013 showing extensive myopathic changes with evidence of fiber degeneration atrophy and internal disorganization. He was referred to the rheumatology clinic in December at that time was not felt to have an inflammatory myopathy. During the interim the bio psy was reviewed with Dr. 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 a reductase antibody was found to be negative. There is also consider ration for inclusion body myositis and the antibodies for this were found to be negative as well. He was subsequently initiated on IVIG which she received for 5 days in April 2019 and another 2 days we will plan for May 2019. Patient did not feel that IVIG worked during his follow-up in August and was initiated on CellCept and corticosteroids. His dose of CellCept was uptitrated through September and he was referred back to rheumatology in November 2019. In November of this year he was on CellCept 2000 mg in divided doses daily and 20 mg of prednisone and was feeling that his cramping and pain was worsening. In November methotrexate was added to his regimen at a dose of 15 mg a week. He was seen in follow-up in January of this year and was noted not to have improved with the new therapies. He had increasing shortness of breath, cramping, soreness in his lower extremities. 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 In the same timeframe he underwent repeat EMG/nerve conduction studies that could be consistent withneurogenic claudication he also began losing increasing amounts of weight over this period of time and a CT of the chest abdomen pelvis was ordered as well as a paraneoplastic panel. The CT showed 3 indeterminate pulmonary nodular densities that were suspicious for infection versus neoplasm. [facility] hypoxemic respiratory failure that occurred a week ago with sudden onset shortness of breath, fever decreased appetite and nausea. REcent hx Patient's reports that he has had been a steady decline since November of this year which they associate with the initiation of methotrexate. He was feeling increasingly weak but also had lower extremity pain. She notes that the breathing difficulties started rather suddenly last week. History today is obtained mostly from the chart and the patient's as the patient is intubated at the present time. Most Recent Vitals: 03/09/20 1600 BP: 118/69 Pulse: 88 Resp: 22 Temp: 36.6 ??C (97.9 ??F) SpO2: 97% Patient is currently intubated he has no obvious rashes unable to test strength exam he has no jointeffusions warmth or the appearance of tenderness Labs and imaging were reviewed Mr. 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 At this time it does not appear that his myositis isthe cause of his acute pulmonary disease. At this point would recommend holding his methotrexate aswell as his mycophenolate. We will follow-up on his infectious studies and course and make recommendations moving forward for treatment if his infectious evaluation is negative. nitial Assessments - Debora Khalil RN - 03/09/2020 3:00 PM EDT Office of Care Management Initial Assessment Debora Khalil RN reviewed record and discussed patient with Care Team. Source of Information: CM spoke to pt and in room. Pt is a/o able to self direct Introduced self/reviewed role; services accepted. Reason for Hospitalization: Past Medical History: Diagnosis Date ??? 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 Venous insufficiency of left lower extremity 05/04/2018 Hospitalizations Within the Past 30 Days: none per pt Anticipated Length Of Stay (If known): TBD Current Decision-Making Capacity: Patient is alert and oriented and able to make decisions. Advance Care Planning: Patient states that he has advanced directives. We do not have a copy in the medical record and have asked patient to have a copy brought in.Pt provided cm with [place] registry number [id number] and his id [id number] and we can get a copy. CM asked Trudi to help with this. Current Coping/Education/Information Needs: Coping well with hospital stay and feels updated on issues and plan. Current Functional Ability: pt is bed bound and can assist with bed mobility, unsure of strength to stand or walk at this time Functional Status Prior to Admission: Pt states up to a week ago he was amb with a cane and driving he could not go long distances but household and started PT outpt Home Environment: lives in a 1 story home with 2 steps to enter and all one floor then Social & Family Supports/Community Resources: very close family support Behavioral Health History: Denies any history of mental illness, depression or anxiety Substance Use/Abuse: Pt states he stopped social drinking about 4 or more yrs ago and also stopped cigarette smoking about 3.5 yrs ago. He had been about a pack a day since 18. He denies doing drugs Other Pertinent/Service Specific Information: Health/Prescription Coverage: Primary Insurance: [employer] OOS Secondary Insurance: N/A Prescription Coverage: yes Preferred Pharmacy: [facility] Other: Primary Care Provider: Talon Constantino MD [phone] Patient/Caregiver Goals of Treatment: get back on my feet and go home Potential Needs for Transition of Care: Rehab/SNF: not at this time Home Health: possible and pt agreed to referral I reviewed a list of Home Health Agencies vendors with patient which serve the preferred geographic area. If patient chooses one of our affiliates, I will provide our affiliate letter. Education was provided about the right to choose where referrals are placed. Patient requests referral to [facility]. PHONE: [phone] FAX: [phone] Expected date of discharge: 03/13 Referral routed to the [employer] for matching with agency/vendor and to provide any required information. DME: cane, may need cpap on d/c Dialysis: not at this time Community Resources: none Transportation: or children Other: Anticipated Barriers to Discharge/Special Considerations: none at this time Assessment: 64 y/o gentleman with very attentive admitted for resp issues and weakness. He lives home and has good support. He may need cpap on d/c. CM will monitor for this. He agreed to HH referral as he and his feel it would be nice to have some follow up on his medications and PT needs. Plan: monitor pt progress Refer to HH services Monitor for cpap needs and obtain if needed A member of the Care Management team will continue to monitor progress, follow for continuity of care and assist with transition of care planning. Debora Khalil RN Pager: [phone] ed Student Consult - Marielle López - 03/09/2020 1:36 PM EDT Med Student Rheumatology Consult Note Patient Name: Jeison Cervantes Date of Admission: 03/08/2020 ( Hospital Day 1 day ) ID: Jeison Cervantes is a 64 y.o. male with a history of autoimmune myopathy (on cellcept, prednisone, MTX) who presents with hypoxemic respiratory failure HPI Patient has been noticing weakness for about three years, but was first seen by neurology in Apr 2018. In Nov 2019, was referred to rheum. Workup at the time was notable for: ?? Positive MICHAEL (titer 1:160) ?? Elevated CK (986) Negative for: ?? dsDNA, RF, SSA, SSB ?? Myositis panel ?? Anti CN1a ?? HMG CoA EMG and muscle biopsy were also non-diagnostic, although muscle biopsy was notable for necrosing muscle fibers. Interventions included: ?? IVIG x5 days in Apr 2019, x2 days in May 2019 ?? Cellcept started at 1g/day titrated up to 2g/day; currently taking ?? Prednisone started at 40 mg/day with taper, eventually switched to Medrol 24 mg and tapered but titrated back to 28 mg on 01/12/2019; currently taking Medrol 20 mg ?? MTX 15 mg/week; currently taking ?? No PJP prophylaxis CK trended down over time (peak was around 1200; most recent around 150), but patient's reportsthat symptoms remained largely unchanged. In addition, patient has lost 37 lbs since November, and muscle mass has visibly decreased in lower extremities. Last , pt started feeling fatigue and shortness of breath. Over the weekend, this progressedfrom dyspnea on exertion to dyspnea at rest. No fevers, cough, wheezing, or any other symptoms at this time. Has never had any respiratory problems before, aside from a childhood history of asthma. Around Thursday, patient's started taking BP and temp. Noted low grade fevers with one measurement of102 F. BP also noted to be low. No known sick contacts recently. Transferred from [facility] to MICU on 03/08 with acute hypoxemic respiratory failure. Was febrile (38.8) tachypneic (34), SpO2 in low 90's on 4L NC. Normal WBC but lymphopenic. COVID PCR neg. Started pip-tazo, vanco, levaquin for presumed pna. Cellcept and MTX held. Prednisone at 40 mg BID. Was intubated for bronchoscopy and currently ETT remains in. Bronchoalveolar lavage performed and fluid sent for bacterial stain and culture, fungal stain and culture, AFB stain and culture, viral culture, PJP stain, cell count, cytology. All labs pending at this time. Med List Scheduled Continuous PRN Rheum Prednisone 40 mg PO bid - to start 9pm 03/09 Folic acid 1000 mcg PO qd CV Pulm GI Pantoprazole 40 mg PO qd Renal/FEK Heme Rivaroxaban 20 mg PO qd ID Azithromycin 500 mg IV q24h TMP-SMX 15 mg/kg/day IV q6h Endo Insulin (Lispro) Uro Finasteride 5 mg Tamsulosin 0.4 mg Neuro Propofol Vitals Last value Range last 24hrs Temperature Temp: 36.7 ??C (98.1 ??F) Temp: [36.5 ??C (97.7 ??F)-36.8 ??C (98.3 ??F)] Heart Rate Heart Rate: (!) 113 Heart Rate: [72-117] Blood Pressure BP: 151/89 BP: (133-151)/(70-89) Respiratory Rate Resp: 14 Resp: [14-30] SpO2 SpO2: 100 % SpO2: [90 %-100 %] Weight Weight: 103.6 kg (228 lb 6.3 oz) Admit weight: 103.6 kg Vent Settings RR 14 TV 580 Vt/Kg 8 FiO2 20 PEEP 5 Fluid Balance: Intake/Output Summary (Last 24 hours) at 03/09/2020 1336 Last data filed at 03/09/2020 1226 Gross per 24 hour Intake 1035 ml Output 1085 ml Net -50 ml Last Weight: Patient Vitals for the past 168 hrs: Weight 03/08/20 2135 103.6 kg (228 lb 6.3 oz) Physical Exam Gen Intubated, sedated Neuro Not examined CV RRR, nl S1 S2 Pulm Only anterior lvoe auscultated; no crackles or wheezing Abdom Not examined Derm No rashes MSK No significant atrophy noted Laboratory Studies: Recent Results (from the past 24 hour(s)) POCT Glucose Result Value Ref Range POC Glucose 311 (H) 65 - 199 mg/dL Lactate, whole blood, send to lab ([facility] [place] Result Value Ref Range Lactate WB 2.2 0.5 - 2.2 mmol/L Prothrombin Time Result Value Ref Range PT 16.2 (H) 9.4 - 12.5 sec INR 1.4 APTT Result Value Ref Range PTT 29 25 - 37 sec Magnesium Result Value Ref Range Magnesium 0.79 0.69 - 1.07 mmol/L Phosphorus Result Value Ref Range Phosphorus 3.0 2.5 - 4.5 mg/dL CMP w/fasting Glucose Result Value Ref Range Glucose Fasting 305 (H) 65 - 99 mg/dL BUN 22 (H) 10 - 20 mg/dL Creatinine 0.73 (L) 0.80 - 1.50 mg/dL Sodium 134 (L) 135 - 145 mmol/L Potassium 3.6 3.5 - 5.0 mmol/L Chloride 98 98 - 107 mmol/L CO2 20 (L) 22 - 31 mmol/L Anion Gap 16 (H) 5 - 15 mmol/L Calcium 9.6 8.5 - 10.5 mg/dL Total Protein 6.1 6.1 - 8.0 gm/dL Albumin 2.8 (L) 3.2 - 5.2 gm/dL AST 35 0 - 39 unit/L ALT 43 0 - 55 unit/L Alk Phos 54 40 - 130 unit/L Total Bilirubin 0.4 0.2 - 1.3 mg/dL eGFR 98 >=60 mL/min/1.73 m?? eGFR 114 >=60 mL/min/1.73 m?? Lactate Dehydrogenase Result Value Ref Range LDH 458 (H) 110 - 220 unit/L Hemogram Result Value Ref Range WBC 11.1 (H) 4.0 - 9.5 x10(3)/mcL RBC 3.34 (L) 4.58 - 5.54 x10(6)/mcL Hemoglobin 10.7 (L) 13.7 - 16.5 gm/dL Hematocrit 30.8 (L) 40.5 - 48.5 % MCV 92.2 82.9 - 93.1 fL MCH 32.0 27.5 - 32.1 pg MCHC 34.7 32.0 - 35.7 gm/dL Platelets 252 145 - 357 x10(3)/mcL RDWSD 53.0 (H) 36.0 - 45.0 fL RDWCV 15.9 (H) 11.4 - 13.8 % MPV 9.0 7.6 - 12.9 fL nRBC % Auto 0.0 % nRBC Abs Auto 0.000 0.000 - 0.000 x10(3)/mcL Differential, Automated Result Value Ref Range Neutrophils % 94.4 % Neutr Abs (ANC) 10.51 (H) 1.70 - 6.10 x10(3)/mcL Lymphocytes % 2.2 % Lymphocytes Abs 0.2 (L) 0.9 - 3.2 x10(3)/mcL Monocytes % 2.6 % Monocyte Abs 0.3 0.3 - 0.9 x10(3)/mcL Eosinophils % 0.0 % Eosinophils Abs 0.0 0.0 - 0.4 x10(3)/mcL Basophils % 0.0 % Basophils Abs 0.0 0.0 - 0.1 x10(3)/mcL Immature Gran % 0.80 % Jessica Gran Abs 0.09 (H) 0.00 - 0.04 x10(3)/mcL ABO/Rh Typing Result Value Ref Range ABORh Type A Pos Antibody screen Result Value Ref Range Ab Screen Interp Negative Expires at 2359 on: 03/11/2020 CK Result Value Ref Range CK, Total 41 0 - 200 unit/L ABORH Recheck Status Result Value Ref Range ABORH Recheck Order Order Placed ABORH Type Recheck Complete Iron and TIBC Result Value Ref Range Iron 54 45 - 160 mcg/dL TIBC 158 (L) 250 - 450 mcg/dL Iron Saturation 34 20 - 50 % Hemoglobin A1c Result Value Ref Range Hemoglobin A1C 8.8 (H) 4.3 - 5.6 % Est Avg Gluc 205 mg/dL COVID-19 PCR Result Value Ref Range Rapid SARS-CoV-2 RNA Not Detected Not Detected SARS-CoV-2 Source [employer]ER Swab Urinalysis without microscopic Result Value Ref Range Glucose UA >=1000 (CRIT) Negative mg/dL Protein UA Trace (A) Negative mg/dL Bilirubin UA Negative Negative mg/dL Urobilinogen UA Normal Normal mg/dL pH UA 5.5 5.0 - 8.0 Blood UA Negative Negative mg/dL Ketones UA Negative Negative mg/dL Nitrite UA Negative Negative Leukocytes UA Negative Negative mcL Appearance UA Clear Clear Spec Parnell UA >=1.030 (A) 1.006 - 1.030 Color UA Yellow Yellow Legionella Urinary Antigen Result Value Ref Range Legionella Urinary Antigen Negative Negative POCT Glucose Result Value Ref Range POC Glucose 309 (H) 65 - 199 mg/dL Miscellaneous Lab request Result Value Ref Range Misc Lab Result Request received in lab. POCT Glucose Result Value Ref Range POC Glucose 315 (H) 65 - 199 mg/dL POCT Glucose Result Value Ref Range POC Glucose 280 (H) 65 - 199 mg/dL POCT Glucose Result Value Ref Range POC Glucose 228 (H) 65 - 199 mg/dL POCT Glucose Result Value Ref Range POC Glucose 282 (H) 65 - 199 mg/dL POCT Glucose Result Value Ref Range POC Glucose 228 (H) 65 - 199 mg/dL POCT Glucose Result Value Ref Range POC Glucose 205 (H) 65 - 199 mg/dL Cell Count Body Fluid Bronchial Alveolar Lavage; additional orders entered Result Value Ref Range Spec Type BF BAL Color BF Colorless Appearance BF Hazy WBC BF Ct 79 /mcl Differential Body Fluid, Manual Result Value Ref Range Polymorph % Man 44 % Mononuc % Man 56 % Polymorph ABS Man 35 /mcl Mononuc ABS Man 44 /mcl Tot Diff Ct BF 200 Cells Assessment & Plan Jeison Cervantes is a 64 y.o. 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 This is in the context of several months of weight/muscle mass loss. Most likely cause of his respiratory failure is infectious, as he has been immunosuppressed and not on PJP prophylaxis. Cellcept and MTX have been held; continuing steroids for lung inflammation. BAL fluid analysis is pending; empiric treatment will continue per primary team. Will continue to hold Cellcept and MTX. Marielle López, MS4 03/09/20 1:36 PM Associated attestation - Suzy Hernandez DO - 03/09/2020 5:07 PM EDT ATTENDING ADDENDUM The patient's history was reviewed, and I interviewed and examined the patient with Marielle. Please see separate note for details.Plan of Care - Tanisha Otero RN - 03/09/2020 4:07 AM EDT Problem: Patient Care Overview Goal: Plan of Care Review Outcome: Ongoing (Interventions Implemented as Appropriate) 03/09/20 0407 Coping/Psychosocial Plan Of Care Reviewed With patient;spouse Plan of Care Review Progress progress toward functional goals is gradual OUTCOME EVALUATION NOTE: OUTCOME SUMMARY: Pt alert and oriented x 4, calm, cooperative and pleasant. No sedation or pain meds administered this shift. Arrived to MICU at ~2130 from outside hospital on 10L NRB, transitioned to HFNC 100% titrated down to 60%. Requires preoxygenation before activity, will desat quickly. No cough, no sputum. Covid results negative. Made NPO pending bronchoscopy tomorrow morning. NSR to ST with activity, normotensive, afebrile. Abdomen soft, nontender. Stands at bedside to use urinal- adequate UO. No BM this shift. BGs consistently elevated and treated per sliding scale insulin order. PLAN MOVING FORWARD: Bronchoscopy tomorrow morning. Continue with home steroid regimen. INDIVIDUALIZED FALL PREVENTION INTERVENTIONS: Patient-specific fall risk factors per assessment: [current deficits]: Unfamiliar environment, generalized weakness, dyspnea on exertion Assistance [level of assistance required for transfers and ambulation]: Standby assist Supervision [direct monitoring required during toileting and ADLs]: q hourly rounding Surveillance [continuous indirect monitoring]: ICU Saray monitor Goal: Fall Prevention-Safe Patient Handling 03/08/205 03/09/200 03/09/207 Activity Activity Type -- activity adjusted per tolerance -- Activity Assistance Provided -- assistance, 2 people -- Assistive Device Utilized -- -- oxygen Walton Fall Risk History of Falling 0 -- -- Secondary Diagnosis 15 -- -- Ambulatory Aids 0 -- -- Intravenous Therapy/Heparin/Saline Lock 0 -- -- Gait/Transferring 10 -- -- Mental Status 0 -- -- Score 25 -- -- OTHER Walton Fall Risk Med -- -- Restraint Interventions Safety Promotion/Fall Prevention -- activity supervised;fall prevention program maintained;safety round/check completed;nonskid shoes/slippers when out of bed -- Positioning Body Position -- independent -- documented in this encounter Plan of Treatment Not on filedocumented as of this encounter Procedures Procedure Name Priority Date/Time Associated Comments Diagnosis POCT GLUCOSE Routine 03/22/2020 11:11 Results for this AM EDT procedure are i n the results section. POCT GLUCOSE Routine 03/22/2020 7:00 Results for this AM EDT procedure are i n the results section. POCT GLUCOSE Routine 03/21/2020 7:37 Results for this PM EDT procedure are i n the results section. POCT GLUCOSE Routine 03/21/2020 3:41 Results for this PM EDT procedure are i n the results section. POCT GLUCOSE Routine 03/21/2020 11:45 Results for this AM EDT procedure are i n the results section. POCT GLUCOSE Routine 03/21/2020 6:47 Results for this AM EDT procedure are i n the results section. HC VENIPUNCTURE Routine 03/21/2020 5:10 Results for this AM EDT procedure are i n the results section. HEMOGRAM Routine 03/21/2020 5:10 Results for this AM EDT procedure are i n the results section. DIFFERENTIAL, AUTOMATED Routine 03/21/2020 5:10 Results for this AM EDT procedure are i n the results section. HC CBC,PLT & AUTO DIFF Routine 03/21/2020 5:10 AM EDT POCT GLUCOSE Routine 03/21/2020 4:28 Results for this AM EDT procedure are i n the results section. POCT GLUCOSE Routine 03/21/2020 12:17 Results for this AM EDT procedure are i n the results section. POCT GLUCOSE Routine 03/20/2020 8:44 Results for this PM EDT procedure are i n the results section. POCT GLUCOSE Routine 03/20/2020 4:27 Results for this PM EDT procedure are i n the results section. POCT GLUCOSE Routine 03/20/2020 11:42 Results for this AM EDT procedure are i n the results section. POCT GLUCOSE Routine 03/20/2020 6:45 Results for this AM EDT procedure are i n the results section. HC VENIPUNCTURE Routine 03/20/2020 4:44 Results for this AM EDT procedure are i n the results section. HEMOGRAM Routine 03/20/2020 4:44 Results for this AM EDT procedure are i n the results section. DIFFERENTIAL, AUTOMATED Routine 03/20/2020 4:44 Results for this AM EDT procedure are i n the results section. HC CBC,PLT & AUTO DIFF Routine 03/20/2020 4:44 AM EDT POCT GLUCOSE Routine 03/20/2020 3:05 Results for this AM EDT procedure are i n the results section. POCT GLUCOSE Routine 03/19/2020 11:03 Results for this PM EDT procedure are i n the results section. POCT GLUCOSE Routine 03/19/2020 7:50 Results for this PM EDT procedure are i n the results section. POCT GLUCOSE Routine 03/19/2020 4:29 Results for this PM EDT procedure are i n the results section. HC CREATININE - NON Routine 03/19/2020 2:41 Resu lts for this BLOOD PM EDT procedure are i n the results section. POCT GLUCOSE Routine 03/19/2020 11:13 Results for this AM EDT procedure are i n the results section. HEMOGRAM STAT 03/19/2020 8:16 Results for this AM EDT procedure are i n the results section. DIFFERENTIAL, AUTOMATED STAT 03/19/2020 8:16 Results for this AM EDT procedure are i n the results section. HC CBC,PLT & AUTO DIFF STAT 03/19/2020 8:16 AM EDT POCT GLUCOSE Routine 03/19/2020 6:42 Results for this AM EDT procedure are i n the results section. POCT GLUCOSE Routine 03/19/2020 4:23 Results for this AM EDT procedure are i n the results section. HC VENIPUNCTURE Routine 03/19/2020 4:04 Results for this AM EDT procedure are i n the results section. POCT GLUCOSE Routine 03/19/2020 12:08 Results for this AM EDT procedure are i n the results section. URINALYSIS MICROSCOPIC Routine 03/18/2020 8:37 R esults for this EXAM PM EDT procedure are i n the results section. URINALYSIS WITH REFLEX Routine 03/18/2020 8:37 R esults for this CULTURE PM EDT procedure are i n the results section. POCT GLUCOSE Routine 03/18/2020 7:30 Results for this PM EDT procedure are i n the results section. POCT GLUCOSE Routine 03/18/2020 3:54 Results for this PM EDT procedure are i n the results section. POCT GLUCOSE Routine 03/18/2020 12:17 Results for this PM EDT procedure are i n the results section. POCT GLUCOSE Routine 03/18/2020 7:15 Results for this AM EDT procedure are i n the results section. BMP W/FASTING GLUCOSE Routine 03/18/2020 5:00 Re sults for this AM EDT procedure are i n the results section. HEMOGRAM Routine 03/18/2020 5:00 Results for this AM EDT procedure are i n the results section. DIFFERENTIAL, AUTOMATED Routine 03/18/2020 5:00 Results for this AM EDT procedure are i n the results section. HC CBC,PLT & AUTO DIFF Routine 03/18/2020 5:00 AM EDT POCT GLUCOSE Routine 03/18/2020 12:15 Results for this AM EDT procedure are i n the results section. POCT GLUCOSE Routine 03/17/2020 8:48 Results for this PM EDT procedure are i n the results section. POCT GLUCOSE Routine 03/17/2020 6:11 Results for this PM EDT procedure are i n the results section. POCT GLUCOSE Routine 03/17/2020 4:07 Results for this PM EDT procedure are i n the results section. POCT GLUCOSE Routine 03/17/2020 12:13 Results for this PM EDT procedure are i n the results section. POCT GLUCOSE Routine 03/17/2020 7:30 Results for this AM EDT procedure are i n the results section. BMP W/FASTING GLUCOSE Routine 03/17/2020 1:22 Re sults for this AM EDT procedure are i n the results section. HEMOGRAM Routine 03/17/2020 1:22 Results for this AM EDT procedure are i n the results section. DIFFERENTIAL, AUTOMATED Routine 03/17/2020 1:22 Results for this AM EDT procedure are i n the results section. HC CBC,PLT & AUTO DIFF Routine 03/17/2020 1:22 AM EDT POCT GLUCOSE Routine 03/16/2020 8:51 Results for this PM EDT procedure are i n the results section. POCT GLUCOSE Routine 03/16/2020 5:51 Results for this PM EDT procedure are i n the results section. POCT GLUCOSE Routine 03/16/2020 3:43 Results for this PM EDT procedure are i n the results section. POCT GLUCOSE Routine 03/16/2020 12:02 Results for this PM EDT procedure are i n the results section. POCT GLUCOSE Routine 03/16/2020 7:26 Results for this AM EDT procedure are i n the results section. BMP W/FASTING GLUCOSE Routine 03/16/2020 2:12 Re sults for this AM EDT procedure are i n the results section. HEMOGRAM Routine 03/16/2020 2:12 Results for this AM EDT procedure are i n the results section. DIFFERENTIAL, AUTOMATED Routine 03/16/2020 2:12 Results for this AM EDT procedure are i n the results section. HC CBC,PLT & AUTO DIFF Routine 03/16/2020 2:12 AM EDT POCT GLUCOSE Routine 03/15/2020 8:12 Results for this PM EDT procedure are i n the results section. POCT GLUCOSE Routine 03/15/2020 4:03 Results for this PM EDT procedure are i n the results section. POCT GLUCOSE Routine 03/15/2020 11:49 Results for this AM EDT procedure are i n the results section. HC SODIUM, URINE Routine 03/15/2020 11:09 Results for this AM EDT procedure are i n the results section. HC OSMOLALITY URINE Routine 03/15/2020 11:09 Resu lts for this AM EDT procedure are i n the results section. HC CREATININE - NON Routine 03/15/2020 11:09 Resu lts for this BLOOD AM EDT procedure are i n the results section. XR ABDOMEN 1 VIEW Routine 03/15/2020 9:54 Result s for this AM EDT procedure are i n the results section. POCT GLUCOSE Routine 03/15/2020 7:45 Results for this AM EDT procedure are i n the results section. POCT GLUCOSE Routine 03/15/2020 4:07 Results for this AM EDT procedure are i n the results section. BMP W/FASTING GLUCOSE Routine 03/15/2020 12:40 Re sults for this AM EDT procedure are i n the results section. HEMOGRAM Routine 03/15/2020 12:40 Results for this AM EDT procedure are i n the results section. DIFFERENTIAL, AUTOMATED Routine 03/15/2020 12:40 Results for this AM EDT procedure are i n the results section. HC CBC,PLT & AUTO DIFF Routine 03/15/2020 12:40 AM EDT HC PHOSPHORUS, SERUM Routine 03/15/2020 12:40 Res ults for this AM EDT procedure are i n the results section. OSMOLALITY Routine 03/15/2020 12:40 Results for this AM EDT procedure are i n the results section. HC MAGNESIUM, SERUM Routine 03/15/2020 12:40 Resu lts for this AM EDT procedure are i n the results section. HC CREATINE Routine 03/15/2020 12:40 Results for this PHOSPHOKINASE, SERUM AM EDT procedu re are in the results section. POCT GLUCOSE Routine 03/15/2020 12:35 Results for this AM EDT procedure are i n the results section. POCT GLUCOSE Routine 03/15/2020 12:34 Results for this AM EDT procedure are i n the results section. POCT GLUCOSE Routine 03/14/2020 7:50 Results for this PM EDT procedure are i n the results section. POCT GLUCOSE Routine 03/14/2020 6:04 Results for this PM EDT procedure are i n the results section. POCT GLUCOSE Routine 03/14/2020 4:04 Results for this PM EDT procedure are i n the results section. POCT GLUCOSE Routine 03/14/2020 11:52 Results for this AM EDT procedure are i n the results section. POCT GLUCOSE Routine 03/14/2020 7:30 Results for this AM EDT procedure are i n the results section. POCT GLUCOSE Routine 03/14/2020 5:10 Results for this AM EDT procedure are i n the results section. BMP W/FASTING GLUCOSE Routine 03/14/2020 12:40 Re sults for this AM EDT procedure are i n the results section. HEMOGRAM Routine 03/14/2020 12:40 Results for this AM EDT procedure are i n the results section. DIFFERENTIAL, AUTOMATED Routine 03/14/2020 12:40 Results for this AM EDT procedure are i n the results section. HC CBC,PLT & AUTO DIFF Routine 03/14/2020 12:40 AM EDT POCT GLUCOSE Routine 03/14/2020 12:27 Results for this AM EDT procedure are i n the results section. POCT GLUCOSE Routine 03/13/2020 8:08 Results for this PM EDT procedure are i n the results section. POCT GLUCOSE Routine 03/13/2020 3:51 Results for this PM EDT procedure are i n the results section. POCT GLUCOSE Routine 03/13/2020 11:54 Results for this AM EDT procedure are i n the results section. POCT GLUCOSE Routine 03/13/2020 8:10 Results for this AM EDT procedure are i n the results section. POCT GLUCOSE Routine 03/13/2020 6:18 Results for this AM EDT procedure are i n the results section. POCT GLUCOSE Routine 03/13/2020 4:32 Results for this AM EDT procedure are i n the results section. BMP W/FASTING GLUCOSE Routine 03/13/2020 1:25 Re sults for this AM EDT procedure are i n the results section. SCAN, PERIPHERAL BLOOD Routine 03/13/2020 1:25 R esults for this AM EDT procedure are i n the results section. HEMOGRAM Routine 03/13/2020 1:25 Results for this AM EDT procedure are i n the results section. DIFFERENTIAL, AUTOMATED Routine 03/13/2020 1:25 Results for this AM EDT procedure are i n the results section. HC CBC,PLT & AUTO DIFF Routine 03/13/2020 1:25 AM EDT POCT GLUCOSE Routine 03/12/2020 11:10 Results for this PM EDT procedure are i n the results section. POCT GLUCOSE Routine 03/12/2020 8:07 Results for this PM EDT procedure are i n the results section. POCT GLUCOSE Routine 03/12/2020 6:07 Results for this PM EDT procedure are i n the results section. POCT GLUCOSE Routine 03/12/2020 3:50 Results for this PM EDT procedure are i n the results section. POCT GLUCOSE Routine 03/12/2020 11:14 Results for this AM EDT procedure are i n the results section. POCT GLUCOSE Routine 03/12/2020 8:05 Results for this AM EDT procedure are i n the results section. POCT GLUCOSE Routine 03/12/2020 4:32 Results for this AM EDT procedure are i n the results section. BLOOD GAS 2 ARTERIAL Routine 03/12/2020 4:04 Res ults for this AM EDT procedure are i n the results section. BMP W/FASTING GLUCOSE Routine 03/12/2020 12:45 Re sults for this AM EDT procedure are i n the results section. SCAN, PERIPHERAL BLOOD Routine 03/12/2020 12:45 R esults for this AM EDT procedure are i n the results section. HEMOGRAM Routine 03/12/2020 12:45 Results for this AM EDT procedure are i n the results section. DIFFERENTIAL, AUTOMATED Routine 03/12/2020 12:45 Results for this AM EDT procedure are i n the results section. HC CBC,PLT & AUTO DIFF Routine 03/12/2020 12:45 AM EDT PRO-BRAIN NATRIURETIC Routine 03/12/2020 12:45 Re sults for this PEPTIDE AM EDT procedure are i n the results section. URINALYSIS MICROSCOPIC Routine 03/12/2020 12:30 R esults for this EXAM AM EDT procedure are i n the results section. URINALYSIS WITH REFLEX Routine 03/12/2020 12:30 R esults for this CULTURE AM EDT procedure are i n the results section. POCT GLUCOSE Routine 03/12/2020 12:13 Results for this AM EDT procedure are i n the results section. HC BLOOD CULTURE- STAT 03/11/2020 11:50 Result s for this PM EDT procedure are i n the results section. HC BLOOD CULTURE- STAT 03/11/2020 11:50 Result s for this PM EDT procedure are i n the results section. XR CHEST ONE VIEW Routine 03/11/2020 11:43 Result s for this PM EDT procedure are i n the results section. POCT GLUCOSE Routine 03/11/2020 8:57 Results for this PM EDT procedure are i n the results section. POCT GLUCOSE Routine 03/11/2020 4:08 Results for this PM EDT procedure are i n the results section. POCT GLUCOSE Routine 03/11/2020 12:18 Results for this PM EDT procedure are i n the results section. EXTUBATE Routine 03/11/2020 9:39 AM EDT POCT GLUCOSE Routine 03/11/2020 7:51 Results for this AM EDT procedure are i n the results section. POCT GLUCOSE Routine 03/11/2020 6:25 Results for this AM EDT procedure are i n the results section. POCT GLUCOSE Routine 03/11/2020 4:26 Results for this AM EDT procedure are i n the results section. POCT GLUCOSE Routine 03/11/2020 12:55 Results for this AM EDT procedure are i n the results section. BMP W/FASTING GLUCOSE Routine 03/11/2020 12:50 Re sults for this AM EDT procedure are i n the results section. HEMOGRAM Routine 03/11/2020 12:50 Results for this AM EDT procedure are i n the results section. DIFFERENTIAL, AUTOMATED Routine 03/11/2020 12:50 Results for this AM EDT procedure are i n the results section. HC CBC,PLT & AUTO DIFF Routine 03/11/2020 12:50 AM EDT POCT GLUCOSE Routine 03/10/2020 8:19 Results for this PM EDT procedure are i n the results section. GOLD TUBE HOLD Routine 03/10/2020 4:15 Results f or this PM EDT procedure are i n the results section. HC POTASSIUM Routine 03/10/2020 4:15 Results for this PM EDT procedure are i n the results section. POCT GLUCOSE Routine 03/10/2020 4:01 Results for this PM EDT procedure are i n the results section. POCT GLUCOSE Routine 03/10/2020 11:58 Results for this AM EDT procedure are i n the results section. POCT GLUCOSE Routine 03/10/2020 7:42 Results for this AM EDT procedure are i n the results section. POCT GLUCOSE Routine 03/10/2020 4:04 Results for this AM EDT procedure are i n the results section. XR CHEST ONE VIEW STAT 03/10/2020 4:03 Result s for this AM EDT procedure are i n the results section. XR ABDOMEN 1 VIEW Routine 03/10/2020 1:28 Result s for this AM EDT procedure are i n the results section. HEMOGRAM Routine 03/10/2020 12:45 Results for this AM EDT procedure are i n the results section. DIFFERENTIAL, AUTOMATED Routine 03/10/2020 12:45 Results for this AM EDT procedure are i n the results section. HC CBC,PLT & AUTO DIFF Routine 03/10/2020 12:45 AM EDT BASIC METABOLIC PANEL Routine 03/10/2020 12:45 Re sults for this (NON-FASTING) AM EDT procedure are in the results section. POCT GLUCOSE Routine 03/10/2020 12:13 Results for this AM EDT procedure are i n the results section. XR ABDOMEN 1 VIEW STAT 03/09/2020 9:40 Result s for this PM EDT procedure are i n the results section. POCT GLUCOSE Routine 03/09/2020 7:50 Results for this PM EDT procedure are i n the results section. POCT GLUCOSE Routine 03/09/2020 5:56 Results for this PM EDT procedure are i n the results section. POCT GLUCOSE Routine 03/09/2020 3:53 Results for this PM EDT procedure are i n the results section. COVID-19 PCR Routine 03/09/2020 12:49 Results for this PM EDT procedure are i n the results section. HC FUNGUS CULTURE, MISC STAT 03/09/2020 12:49 SOURCE PM EDT HC CF SPUTUM CULTURE STAT 03/09/2020 12:49 Res ults for this PM EDT procedure are i n the results section. HC MYCOBACTERIA CULTURE STAT 03/09/2020 12:49 Results for this PM EDT procedure are i n the results section. HC PNEUMOCYSTIS STAIN STAT 03/09/2020 12:49 Re sults for this PM EDT procedure are i n the results section. FUNGAL STAIN STAT 03/09/2020 12:49 Results for this PM EDT procedure are i n the results section. FUNGUS CULTURE STAT 03/09/2020 12:49 Results f or this PM EDT procedure are i n the results section. DIFFERENTIAL BODY STAT 03/09/2020 12:30 Result s for this FLUID, MANUAL PM EDT procedure are in the results section. NON-PICKLING TANK OPERATOR FINAL REPORT Routine 03/09/2020 12:30 Res ults for this PM EDT procedure are i n the results section. FLUID REVIEW REPORT Routine 03/09/2020 12:30 Resu lts for this PM EDT procedure are i n the results section. HC BODY FLUID CELL CT STAT 03/09/2020 12:30 Re sults for this W/DIFF PM EDT procedure are i n the results section. POCT GLUCOSE Routine 03/09/2020 12:23 Results for this PM EDT procedure are i n the results section. CYTOPATHOLOGY STAT 03/09/2020 12:17 Results fo r this NON-GYNECOLOGICAL PM EDT procedure are in the results section. POCT GLUCOSE Routine 03/09/2020 10:02 Results for this AM EDT procedure are i n the results section. POCT GLUCOSE Routine 03/09/2020 8:18 Results for this AM EDT procedure are i n the results section. EKG 12-LEAD Routine 03/09/2020 6:14 Acute hypoxemic Results for this AM EDT respiratory failure procedur e are in the results section. POCT GLUCOSE Routine 03/09/2020 5:51 Results for this AM EDT procedure are i n the results section. POCT GLUCOSE Routine 03/09/2020 3:43 Results for this AM EDT procedure are i n the results section. POCT GLUCOSE Routine 03/09/2020 2:02 Results for this AM EDT procedure are i n the results section. MISCELLANEOUS LAB Routine 03/09/2020 2:00 Result s for this REQUEST AM EDT procedure are i n the results section. MISC SENDOUT Routine 03/09/2020 2:00 Results for this AM EDT procedure are i n the results section. POCT GLUCOSE Routine 03/08/2020 11:17 Results for this PM EDT procedure are i n the results section. HC PCH ASPERGILLUS Routine 03/08/2020 11:15 Resul ts for this (GALACTOMANNAN) ANTIGEN PM EDT proc edure are in the results section. HC RESPIRATORY VIRUS Routine 03/08/2020 10:54 Res ults for this PANEL BY PCR PM EDT procedure are i n the results section. HC LEGIONELLA URINARY Routine 03/08/2020 10:54 Re sults for this ANTIGEN PM EDT procedure are i n the results section. HC UA W/OUT MICROSCOPIC STAT 03/08/2020 10:24 Results for this PM EDT procedure are i n the results section. RAPID COVID-19 PCR Routine 03/08/2020 10:23 Resul ts for this ([facility]) PM EDT procedure are in the results section. ABORH RECHECK STATUS STAT 03/08/2020 10:00 Res ults for this PM EDT procedure are i n the results section. CMP W/FASTING GLUCOSE STAT 03/08/2020 10:00 Re sults for this PM EDT procedure are i n the results section. HEMOGRAM STAT 03/08/2020 10:00 Results for this PM EDT procedure are i n the results section. DIFFERENTIAL, AUTOMATED STAT 03/08/2020 10:00 Results for this PM EDT procedure are i n the results section. HC IRON BINDING Routine 03/08/2020 10:00 Results for this CAPACITY PM EDT procedure are i n the results section. HC L-LACTATE STAT 03/08/2020 10:00 Results for this PM EDT procedure are i n the results section. ABO/RH TYPING STAT 03/08/2020 10:00 Results fo r this PM EDT procedure are i n the results section. HC BLOOD CULTURE- STAT 03/08/2020 10:00 Result s for this PM EDT procedure are i n the results section. HC BLOOD CULTURE- STAT 03/08/2020 10:00 Result s for this PM EDT procedure are i n the results section. HC PARTIAL STAT 03/08/2020 10:00 Results for this THROMBOPLASTIN TIME PM EDT procedur e are in the results section. HC PROTHROMBIN TIME STAT 03/08/2020 10:00 Resu lts for this PM EDT procedure are i n the results section. HC CBC,PLT & AUTO DIFF STAT 03/08/2020 10:00 PM EDT ANTIBODY SCREEN STAT 03/08/2020 10:00 Results for this PM EDT procedure are i n the results section. HC ANTIBODY STAT 03/08/2020 10:00 DETECTION,CAPTURE-R PM EDT HC PHOSPHORUS, SERUM STAT 03/08/2020 10:00 Res ults for this PM EDT procedure are i n the results section. HC MAGNESIUM, SERUM STAT 03/08/2020 10:00 Resu lts for this PM EDT procedure are i n the results section. HC LACTIC DEHYDROGENASE Routine 03/08/2020 10:00 Results for this PM EDT procedure are i n the results section. HEMOGLOBIN A1C STAT 03/08/2020 10:00 Results f or this PM EDT procedure are i n the results section. HC CREATINE Routine 03/08/2020 10:00 Results for this PHOSPHOKINASE, SERUM PM EDT procedu re are in the results section. POCT GLUCOSE Routine 03/08/2020 9:44 Results for this PM EDT procedure are i n the results section. documented in this encounter Results POCT Glucose (03/22/2020 11:11 AM EDT) POC Glucose 117 65 - 199 mg/dL MENG ROMEO Comment: [facility] Supplemental ranges: LABORATORY <140 mg/dL before meals <180 mg/dL all other times of the day Specimen Blood Performing Organization Address [facility] Phone Number [address] LABORATORY POCT Glucose (03/22/2020 7:00 AM EDT) POC Glucose 99 65 - 199 mg/dL MENG ROMEO Comment: [facility] Supplemental ranges: LABORATORY <140 mg/dL before meals <180 mg/dL all other times of the day Specimen Blood Performing Organization Address City/[facility] Phone Number [address] LABORATORY POCT Glucose (03/21/2020 7:37 PM EDT) POC Glucose 115 65 - 199 mg/dL MENG ROMEO Comment: [facility] Supplemental ranges: LABORATORY <140 mg/dL before meals <180 mg/dL all other times of the day Specimen Blood Performing Organization Address [facility] Phone Number [address] LABORATORY POCT Glucose (03/21/2020 3:41 PM EDT) POC Glucose 230 (H) 65 - 199 mg/dL MENG ROMEO Comment: [facility] Supplemental ranges: LABORATORY <140 mg/dL before meals <180 mg/dL all other times of the day Specimen Blood Performing Organization Address City/[facility] Phone Number [address] LABORATORY POCT Glucose (03/21/2020 11:45 AM EDT) POC Glucose 155 65 - 199 mg/dL MENG ROMEO Comment: [facility] Supplemental ranges: LABORATORY <140 mg/dL before meals <180 mg/dL all other times of the day Specimen Blood Performing Organization Address City/[facility] Phone Number [address] LABORATORY POCT Glucose (03/21/2020 6:47 AM EDT) POC Glucose 96 65 - 199 mg/dL MENG ROMEO Comment: [facility] Supplemental ranges: LABORATORY <140 mg/dL before meals <180 mg/dL all other times of the day Specimen Blood Performing Organization Address City/[facility] Phone Number [address] LABORATORY Differential, Automated (03/21/2020 5:10 AM EDT) Neutrophils % 77.8 % [facility] LABORATORY Neutr Abs (ANC) 5.55 1.70 - 6.10 [facility] x10(3)/[facility] LABORATORY Lymphocytes % 6.9 % [facility] LABORATORY Lymphocytes Abs 0.5 (L) 0.9 - 3.2 [facility] x10(3)/[facility] LABORATORY Monocytes % 8.3 % [facility] LABOR[facility] Monocyte Abs 0.6 0.3 - 0.9 [facility] [facility] LABORATORY Eosinophils % 1.5 % [facility] LABORATORY Eosinophils Abs 0.1 0.0 - 0.4 [facility] x10(3)/[facility] LABORATORY Basophils % 0.7 % [facility] LABORATORY Basophils Abs 0.0 0.0 - 0.1 [facility] x10(3)/[facility] LABORATORY Immature Gran % 4.80 % [facility] Comment: [facility] Immature granulocytes(IG's)percentage and absolu te count will include LABORATORY metamyelocytes, myelocytes, and promyelo cytes. Blood smears from CBCs yielding IG's will be scanned manually for arabella danadela. If this scan disagrees with the automated IG or if promyelocytes are noted, a manual d ifferential will be performed. Jessica Gran Abs 0.34 (H) 0.00 - 0.04 [facility] x10(3)/[facility] LABORATORY Specimen Blood Resulting Agency Comment Spec In Lab Performing Organization Address City/State/Zipcode Phone Number [place] [phone] HOSPITAL LABORATORY Hemogram (03/21/2020 5:10 AM EDT) Pathologist Sig nature WBC 7.1 4.0 - 9.5 [facility] x10(3)/[facility] LABORATORY RBC 3.53 (L) 4.58 - 5.54 [facility] x10(6)/[facility] LABORATORY Hemoglobin 11.1 (L) 13.7 - 16.5 gm/dL [facility] LABORATORY Hematocrit 34.2 (L) 40.5 - 48.5 % [facility] LABORATORY MCV 96.9 (H) 82.9 - 93.1 fL [facility] LABORATORY MCH 31.4 27.5 - 32.1 pg [facility] LABORATORY MCHC 32.5 32.0 - 35.7 gm/dL [facility] LABORATORY Platelets 240 145 - 357 [facility] x10(3)/[facility] LABORATORY RDWSD 56.6 (H) 36.0 - 45.0 fL [facility] LABORATORY RDWCV 16.0 (H) 11.4 - 13.8 % [facility] LABORATORY MPV 8.9 7.6 - 12.9 fL [facility] LABORATORY nRBC % Auto 0.8 % [facility] LABORATORY nRBC Abs Auto 0.060 (H) 0.000 - 0.000 [facility] x10(3)/[facility] LABORATORY Specimen Blood Resulting Agency Comment Spec In Lab Performing Organization Address City/State/Zipcode Phone Number MENG ROMEO [place] [phone] HOSPITAL LABORATORY BMP w/fasting Glucose (03/21/2020 5:10 AM EDT) Glucose Fasting 80 65 - 99 [facility] Comment: mg/dL [facility] ?Fasting* Glucose Interpretive Criteria LABORATORY Normal ?65-99 mg/dL Impaired Fasting glucose ?100-12 5 mg/dL Consistent with Diabetes Mellitus ? >or= 126 mg/ dL *Fasting is defined as no caloric intake for at least 8 hours In the absence of unequivocal hyperglycemia a plasma glucose value of >or= 126 mg/dL should be repeated on a subsequent day. Diagnosis and Classification of Diabetes Mellitus, Position Statement from the [employer]. ??Diabetes Care, Volume 33, Supplement 1, Sep 2009 BUN 14 10 - 20 [facility] mg/dL [facility] LABORATORY Creatinine 0.74 (L) 0.80 - 1.50 [facility] LABORATORY Sodium 130 (L) 135 - 145 [facility] mmol/L [facility] LABORATORY Potassium 4.3 3.5 - 5.0 [facility] Comment: mmol/L [facility] Please note: ??Patients with WBC >100,000 may welch ve falsely elevated Potassium LABORATORY levels. ??For accurate Potassium quantification in the se patients send serum separator tube (gold top) fo r subsequent determinations. ??Contact the Clinical Chemistry Laboratory if there are any questions. Chloride 93 (L) 98 - 107 [facility] mmol/L [facility] LABORATORY CO2 24 22 - 31 [facility] mmol/L [facility] LABORATORY Anion Gap 13 5 - 15 [facility]/L [facility] LABORATORY Calcium 9.2 8.5 - 10.5 [facility] mg/dL [facility] LABORATORY Estimated GFR 97 >=60 [facility] Comment: mL/min/1.73 [facility] The eGFR was calculated using the CKD-EPI equati on. As with all creatinine m?? LABORATORY based estimates of kidney function, eGFR values calcul ated with the CKD-EPI equation are not accurate in patients with acute kidne y failure, extremes of body mass or the acutely ill. [email or web address]/[facility] UPMCCymbet eGFR 113 >=60 MENG ROMEO French Comment: mL/min/1.73 [facility] The eGFR was calculated using the CKD-EPI equati on. As with all creatinine m?? LABORATORY based estimates of kidney function, eGFR values calcul ated with the CKD-EPI equation are not accurate in patients with acute kidne y failure, extremes of body mass or the acutely ill. [email or web address]/[facility] GROVEnk Specimen Blood Resulting Agency Comment Spec In Lab Performing Organization Address City/[facility]/Zipcode Phone Number [address] LABORATORY POCT Glucose (03/21/2020 4:28 AM EDT) POC Glucose 92 65 - 199 mg/dL MENG ROMEO Comment: [facility] Supplemental ranges: LABORATORY <140 mg/dL before meals <180 mg/dL all other times of the day Specimen Blood Performing Organization Address City/[facility]/Zipcode Phone Number [address] LABORATORY POCT Glucose (03/21/2020 12:17 AM EDT) POC Glucose 88 65 - 199 mg/dL [facility]O Comment: [facility] Supplemental ranges: LABORATORY <140 mg/dL before meals <180 mg/dL all other times of the day Specimen Blood Performing Organization Address City/[facility]/Zipcode Phone Number [address] LABORATORY POCT Glucose (03/20/2020 8:44 PM EDT) POC Glucose 105 65 - 199 mg/dL [facility]O Comment: [facility] Supplemental ranges: LABORATORY <140 mg/dL before meals <180 mg/dL all other times of the day Specimen Blood Performing Organization Address City/[facility]/Zipcode Phone Number [address] LABORATORY POCT Glucose (03/20/2020 4:27 PM EDT) [facility] POC Glucose 196 65 - 199 mg/dL MENG ROMEO Comment: [facility] Supplemental ranges: LABORATORY <140 mg/dL before meals <180 mg/dL all other times of the day Specimen Blood Performing Organization Address City/[facility] Phone Number [address] LABORATORY POCT Glucose (03/20/2020 11:42 AM EDT) [facility] POC Glucose 106 65 - 199 mg/dL MENG ROMEO Comment: [facility] Supplemental ranges: LABORATORY <140 mg/dL before meals <180 mg/dL all other times of the day Specimen Blood Performing Organization Address City/[facility] Phone Number [address] LABORATORY POCT Glucose (03/20/2020 6:45 AM EDT) [facility] POC Glucose 102 65 - 199 mg/dL MENG [facility] Comment: [facility] Supplemental ranges: LABORATORY <140 mg/dL before meals <180 mg/dL all other times of the day Specimen Blood Performing Organization Address City/[facility] Phone Number [address] LABORATORY Differential, Automated (03/20/2020 4:44 AM EDT) [facility] Neutrophils % 80.0 % [facility] LABORATORY Neutr Abs (ANC) 6.57 (H) 1.70 - 6.10 [facility] x10(3)/[facility] LABORATORY Lymphocytes % 6.7 % [facility] LABORATORY Lymphocytes Abs 0.6 (L) 0.9 - 3.2 [facility] x10(3)/[facility] LABORATORY Monocytes % 6.7 % [facility] LABORATORY Monocyte Abs 0.6 0.3 - 0.9 [facility] x10(3)/[facility] LABORATORY Eosinophils % 0.6 % [facility] LABORATORY Eosinophils Abs 0.0 0.0 - 0.4 [facility] x10(3)/[facility] LABORATORY Basophils % 0.4 % [facility] LABORATORY Basophils Abs 0.0 0.0 - 0.1 [facility] x10(3)/[facility] LABORATORY Immature Gran % 5.60 % [facility] Comment: [facility] Immature granulocytes(IG's)percentage and absolu te count will include LABORATORY metamyelocytes, myelocytes, and promyelo cytes. Blood smears from CBCs yielding IG's will be scanned manually for concor dance. If this scan disagrees with the automated IG or if promyelocytes are noted, a manual d ifferential will be performed. Jessica Gran Abs 0.46 (H) 0.00 - 0.04 [place] [id number](3)/[facility] LABORATORY Specimen Blood Resulting Agency Comment Spec In Lab Performing Organization Address City/State/Zipcode Phone Number [place] [phone] HOSPITAL LABORATORY Hemogram (03/20/2020 4:44 AM EDT) Pathologist Sig nature WBC 8.2 4.0 - 9.5 [facility] x10(3)/[facility] LABORATORY RBC 3.38 (L) 4.58 - 5.54 [facility] x10(6)/[facility] LABORATORY Hemoglobin 10.7 (L) 13.7 - 16.5 gm/dL [facility] LABORATORY Hematocrit 32.2 (L) 40.5 - 48.5 % [facility] LABORATORY MCV 95.3 (H) 82.9 - 93.1 fL [facility] LABORATORY MCH 31.7 27.5 - 32.1 pg [facility] LABORATORY MCHC 33.2 32.0 - 35.7 gm/dL [facility] LABORATORY Platelets 267 145 - 357 [facility] [employer] App0(3)/[facility] LABORATORY RDWSD 53.8 (H) 36.0 - 45.0 fL [facility] LABORATORY RDWCV 15.9 (H) 11.4 - 13.8 % [facility] LABORATORY MPV 9.0 7.6 - 12.9 fL [facility] LABORATORY nRBC % Auto 0.5 % [facility] LABORATORY nRBC Abs Auto 0.040 (H) 0.000 - 0.000 [facility] x10(3)/[facility] LABORATORY Specimen Blood Resulting Agency Comment Spec In Lab Performing Organization Address City/State/Zipcode Phone Number MENG ROMEO [place], [place] [phone] HOSPITAL LABORATORY BMP w/fasting Glucose (03/20/2020 4:44 AM EDT) Glucose Fasting 81 65 - 99 MENG ROMEO Comment: mg/dL [facility] ?Fasting* Glucose Interpretive Criteria LABORATORY Normal ?65-99 mg/dL Impaired Fasting glucose ?100-12 5 mg/dL Consistent with Diabetes Mellitus ? >or= 126 mg/ dL *Fasting is defined as no caloric intake for at least 8 hours In the absence of unequivocal hyperglycemia a plasma glucose value of >or= 126 mg/dL should be repeated on a subsequent day. Diagnosis and Classification of Diabetes Mellitus, Position Statement from the [employer]. ??Diabetes Care, Volume 33, Supplement 1, Sep 2009 BUN 14 10 - 20 [facility] LABORATORY Creatinine 0.68 (L) 0.80 - 1.50 [facility] mg/dL [facility] LABORATORY Sodium 129 (L) 135 - 145 [facility] mmol/L [facility] LABORATORY Potassium 4.4 3.5 - 5.0 [facility] Comment: mmol/L [facility] Please note: ??Patients with WBC >100,000 may welch ve falsely elevated Potassium LABORATORY levels. ??For accurate Potassium quantification in the se patients send serum separator tube (gold top) fo r subsequent determinations. ??Contact the Clinical Chemistry Laboratory if there are any questions. Chloride 93 (L) 98 - 107 [facility] mmol/L [facility] LABORATORY CO2 26 22 - 31 [facility] mmol/L [facility] LABORATORY Anion Gap 10 5 - 15 [facility] mmol/L [facility] LABORATORY Calcium 9.2 8.5 - 10.5 [facility]/dL [facility] LABORATORY Estimated GFR 101 >=60 [facility] Comment: mL/min/1.73 [facility] The eGFR was calculated using the CKD-EPI equati on. As with all creatinine m?? LABORATORY based estimates of kidney function, eGFR values calcul ated with the CKD-EPI equation are not accurate in patients with acute kidne y failure, extremes of body mass or the acutely ill. [email or web address]/[facility] UPMCk eGFR 117 >=60 [facility] French Comment: mL/min/1.73 [facility] The eGFR was calculated using the CKD-EPI equati on. As with all creatinine m?? LABORATORY based estimates of kidney function, eGFR values calcul ated with the CKD-EPI equation are not accurate in patients with acute kidne y failure, extremes of body mass or the acutely ill. http://Infinio/[facility] UPMCk Specimen Blood Resulting Agency Comment Spec In Lab Performing Organization Address City/State/Zipcode Phone Number [address] LABORATORY POCT Glucose (03/20/2020 3:05 AM EDT) POC Glucose 91 65 - 199 mg/dL [facility] Comment: [facility] Supplemental ranges: LABORATORY <140 mg/dL before meals <180 mg/dL all other times of the day Specimen Blood Performing Organization Address City/[facility]/Zipcode Phone Number [address] LABORATORY POCT Glucose (03/19/2020 11:03 PM EDT) POC Glucose 87 65 - 199 mg/dL [facility] Comment: [facility] Supplemental ranges: LABORATORY <140 mg/dL before meals <180 mg/dL all other times of the day Specimen Blood Performing Organization Address City/State/Zipcode Phone Number [address] LABORATORY POCT Glucose (03/19/2020 7:50 PM EDT) POC Glucose 217 (H) 65 - 199 mg/dL [facility] Comment: [facility] Supplemental ranges: LABORATORY <140 mg/dL before meals <180 mg/dL all other times of the day Specimen Blood Performing Organization Address City/[facility]/Zipcode Phone Number [address] LABORATORY POCT Glucose (03/19/2020 4:29 PM EDT) [facility] POC Glucose 198 65 - 199 mg/dL MENG ROMEO Comment: [facility] Supplemental ranges: LABORATORY <140 mg/dL before meals <180 mg/dL all other times of the day Specimen Blood Performing Organization Address City/[facility] Phone Number [address] LABORATORY Protein/Creatinine Ratio, urine (03/19/2020 2:41 PM EDT) [facility] nature U Creatinine 51 mg/dL [facility] LABORATORY U Protein Ran 21 (H) 0 - 12 mg/dL [facility] LABORATORY Prot/Cre Ratio 0.4 ratio [facility] LABORATORY Specimen Urine Resulting Agency Comment Spec In Lab Performing Organization Address [facility] Phone Number [address] LABORATORY POCT Glucose (03/19/2020 11:13 AM EDT) [facility] POC Glucose 116 65 - 199 mg/dL MENG ROMEO Comment: [facility] Supplemental ranges: LABORATORY <140 mg/dL before meals <180 mg/dL all other times of the day Specimen Blood Performing Organization Address [facility] Phone Number [address] LABORATORY Differential, Automated (03/19/2020 8:16 AM EDT) [facility] Neutrophils % 85.7 % [facility] LABORATORY Neutr Abs (ANC) 8.37 (H) 1.70 - 6.10 [facility] x10(3)/[facility] LABORATORY Lymphocytes % 5.6 % [facility] LABORATORY Lymphocytes Abs 0.6 (L) 0.9 - 3.2 [facility] x10(3)/[facility] LABORATORY Monocytes % 3.4 % [facility] LABORATORY Monocyte Abs 0.3 0.3 - 0.9 [facility] x10(3)/[facility] LABORATORY Eosinophils % 0.4 % [facility] LABORATORY Eosinophils Abs 0.0 0.0 - 0.4 [facility] x10(3)/[facility] LABORATORY Basophils % 0.4 % [facility] LABORATORY Basophils Abs 0.0 0.0 - 0.1 [facility] x10(3)/[facility] LABORATORY Immature Gran % 4.50 % [facility] Comment: [facility] Immature granulocytes(IG's)percentage and absolu te count will include LABORATORY metamyelocytes, myelocytes, and promyelo cytes. Blood smears from CBCs yielding IG's will be scanned manually for concor dance. If this scan disagrees with the automated IG or if promyelocytes are noted, a manual d ifferential will be performed. Jessica Gran Abs 0.44 (H) 0.00 - 0.04 [place] [id number](3)/[facility] LABORATORY Specimen Blood Resulting Agency Comment Spec In Lab Performing Organization Address City/State/Zipcode Phone Number [place] [phone] HOSPITAL LABORATORY Hemogram (03/19/2020 8:16 AM EDT) Pathologist Sig nature WBC 9.8 (H) 4.0 - 9.5 [facility] x10(3)/[facility] LABORATORY RBC 3.38 (L) 4.58 - 5.54 [facility] x10(6)/[facility] LABORATORY Hemoglobin 10.5 (L) 13.7 - 16.5 gm/dL [facility] LABORATORY Hematocrit 32.0 (L) 40.5 - 48.5 % [facility] LABORATORY MCV 94.7 (H) 82.9 - 93.1 fL [facility] LABORATORY MCH 31.1 27.5 - 32.1 pg [facility] LABORATORY MCHC 32.8 32.0 - 35.7 gm/dL [facility] LABORATORY Platelets 278 145 - 357 [facility] x10(3)/[facility] LABORATORY RDWSD 53.6 (H) 36.0 - 45.0 fL [facility] RDWCV 15.7 (H) 11.4 - 13.8 % [facility] LABORATORY MPV 9.2 7.6 - 12.9 fL [facility] LABORATORY nRBC % Auto 0.3 % [facility] LABORATORY nRBC Abs Auto 0.030 (H) 0.000 - 0.000 [facility] x10(3)/[facility] LABORATORY Specimen Blood Resulting Agency Comment Spec In Lab Performing Organization Address City/[facility]/Zipcode Phone Number [address] LABORATORY POCT Glucose (03/19/2020 6:42 AM EDT) POC Glucose 99 65 - 199 mg/dL [facility] Comment: [facility] Supplemental ranges: LABORATORY <140 mg/dL before meals <180 mg/dL all other times of the day Specimen Blood Performing Organization Address [facility]/Zipcode Phone Number [address] LABORATORY POCT Glucose (03/19/2020 4:23 AM EDT) POC Glucose 96 65 - 199 mg/dL [facility] Comment: [facility] Supplemental ranges: LABORATORY <140 mg/dL before meals <180 mg/dL all other times of the day Specimen Blood Performing Organization Address [facility] Phone Number [address] LABORATORY BMP w/fasting Glucose (03/19/2020 4:04 AM EDT) Glucose Fasting 84 65 - 99 [facility] Comment: mg/dL [facility] ?Fasting* Glucose Interpretive Criteria LABORATORY Normal ?65-99 mg/dL Impaired Fasting glucose ?100-12 5 mg/dL Consistent with Diabetes Mellitus ? >or= 126 mg/ dL *Fasting is defined as no caloric intake for at least 8 hours In the absence of unequivocal hyperglycemia a plasma glucose value of >or= 126 mg/dL should be repeated on a subsequent day. Diagnosis and Classification of Diabetes Mellitus, Position Statement from the [place] [employer]. ??Diabetes Care, Volume 33, Supplement 1, Sep 2009 BUN 20 10 - 20 [facility] [place] mg/dL [facility] LABORATORY Creatinine 0.63 (L) 0.80 - 1.50 [facility] mg/dL [facility] LABORATORY Sodium 130 (L) 135 - 145 [facility]/L [facility] LABORATORY Potassium 4.5 3.5 - 5.0 [facility] Comment: mmol/L [facility] Please note: ??Patients with WBC >100,000 may welch ve falsely elevated Potassium LABORATORY levels. ??For accurate Potassium quantification in the se patients send serum separator tube (gold top) fo r subsequent determinations. ??Contact the Clinical Chemistry Laboratory if there are any questions. Chloride 93 (L) 98 - 107 [facility] mmol/L [facility] LABORATORY CO2 27 22 - 31 [facility] mmol/L [facility] LABORATORY Anion Gap 10 5 - 15 [facility]L [facility] LABORATORY Calcium 9.4 8.5 - 10.5 [facility] mg/dL [facility] LABORATORY Estimated GFR 104 >=60 [facility] Comment: mL/min/1.73 [facility] The eGFR was calculated using the CKD-EPI equati on. As with all creatinine m?? LABORATORY based estimates of kidney function, eGFR values calcul ated with the CKD-EPI equation are not accurate in patients with acute kidne y failure, extremes of body mass or the acutely ill. http://Infinio/[facility] GROVEnkf eGFR 121 >=60 [facility] French Comment: mL/min/1.73 [facility] The eGFR was calculated using the CKD-EPI equati on. As with all creatinine m?? LABORATORY based estimates of kidney function, eGFR values calcul ated with the CKD-EPI equation are not accurate in patients with acute kidne y failure, extremes of body mass or the acutely ill. http://Infinio/[facility] GROVEnkf Specimen Blood Resulting Agency Comment Spec In Lab Performing Organization Address City/State/Zipcode Phone Number [place] [phone] HOSPITAL LABORATORY POCT Glucose (03/19/2020 12:08 AM EDT) POC Glucose 88 65 - 199 mg/dL [facility] Comment: [facility] Supplemental ranges: LABORATORY <140 mg/dL before meals <180 mg/dL all other times of the day Specimen Blood Performing Organization Address [facility] Cent[facility]ode Phone Number [address] LABORATORY Urinalysis Microscopic Exam (03/18/2020 8:37 PM EDT) Pathologist Sig nature RBC UA >100 (H) 0 - 3 /HPF [facility] LABORATORY WBC UA 7 (H) 0 - 3 /HPF [facility] LABORATORY Squam Epith UA 2 <=4 /HPF [facility] LABORATORY Hyaline Cast UA 2 0 - 2 /LPF [facility] LABORATORY Specimen Clean Catch Urine Resulting Agency Comment Spec In Lab Performing Organization Address [facility] Phone Number [address] LABORATORY Urinalysis with reflex Culture (03/18/2020 8:37 PM EDT) Glucose UA 250 (A) Negative mg/dL [facility] LABORATORY Protein UA 100 (A) Negative mg/dL [facility] LABORATORY Bilirubin UA Negative Negative mg/dL [facility] Comment: [facility] Clinical correlation required for positive Urine Bilirubin results as false LABORATORY positive may occur with some drugs and drug related pr oducts. If a false positive is suspected a serum total bilirubin should b e considered if clinically indicated. Urobilinogen UA Normal Normal mg/dL [facility] pH UA 5.5 5.0 - 8.0 [facility] Blood UA Large (A) Negative mg/dL [facility] Ketones UA Negative Negative mg/dL [facility] Nitrite UA Negative Negative [facility] Leukocytes UA Small (A) Negative [facility] Appearance UA Cloudy (A) Clear [facility] Spec Parnell UA 1.027 1.006 - 1.030 [facility] Color UA Dark Yellow Yellow [facility] Culture Reflexed No [facility] Specimen Clean Catch Urine Resulting Agency Comment Spec In Lab Performing Organization Address City/[facility]/Zipcode Phone Number MENG [id number] LABORATORY POCT Glucose (03/18/2020 7:30 PM EDT) Pathologist [facility] POC Glucose 179 65 - 199 mg/dL MENG ROMEO Comment: [facility] Supplemental ranges: LABORATORY <140 mg/dL before meals <180 mg/dL all other times of the day Specimen Blood Performing Organization Address City/[facility]/Zipcode Phone Number [address] LABORATORY POCT Glucose (03/18/2020 3:54 PM EDT) [facility] POC Glucose 295 (H) 65 - 199 mg/dL MENG ROMEO Comment: [facility] Supplemental ranges: LABORATORY <140 mg/dL before meals <180 mg/dL all other times of the day Specimen Blood Performing Organization Address City/[facility] Phone Number [address] LABORATORY POCT Glucose (03/18/2020 12:17 PM EDT) [facility] POC Glucose 216 (H) 65 - 199 mg/dL MENG AGUEDA Comment: [facility] Supplemental ranges: LABORATORY <140 mg/dL before meals <180 mg/dL all other times of the day Specimen Blood Performing Organization Address City/[facility]odc Phone Number [address] LABORATORY POCT Glucose (03/18/2020 7:15 AM EDT) [facility] POC Glucose 104 65 - 199 mg/dL MENG ROMEO Comment: [facility] Supplemental ranges: LABORATORY <140 mg/dL before meals <180 mg/dL all other times of the day Specimen Blood Performing Organization Address City/State/Zipcode Phone Number [address] LABORATORY Differential, Automated (03/18/2020 5:00 AM EDT) [facility] Neutrophils % 83.9 % [facility] Neutr Abs (ANC) 7.22 (H) 1.70 - 6.10 [facility] x10(3)/[facility] LABORATORY Lymphocytes % 6.8 % [facility] Lymphocytes Abs 0.6 (L) 0.9 - 3.2 [facility] x10(3)/[facility] LABORATORY Monocytes % 2.7 % [facility] Monocyte Abs 0.2 (L) 0.3 - 0.9 [facility] x10(3)/[facility] LABORATORY Eosinophils % 0.5 % [facility] Eosinophils Abs 0.0 0.0 - 0.4 [facility] x10(3)/[facility] LABORATORY Basophils % 0.5 % [facility] Basophils Abs 0.0 0.0 - 0.1 [facility] x10(3)/[facility] LABORATORY Immature Gran % 5.60 % [facility] Comment: [facility] Immature granulocytes(IG's)percentage and absolu te count will include LABORATORY metamyelocytes, myelocytes, and promyelo cytes. Blood smears from CBCs yielding IG's will be scanned manually for concor dance. If this scan disagrees with the automated IG or if promyelocytes are noted, a manual d ifferential will be performed. Jessica Gran Abs 0.48 (H) 0.00 - 0.04 [place] [id number](3)/[facility] LABORATORY Specimen Blood Resulting Agency Comment Spec In Lab Performing Organization Address City/State/Zipcode Phone Number [place] [address] HOSPITAL [facility]ORY Hemogram (03/18/2020 5:00 AM EDT) Pathologist Sig nature WBC 8.6 4.0 - 9.5 [facility] x10(3)/[facility] LABORATORY RBC 3.47 (L) 4.58 - 5.54 [facility] x10(6)/[facility] Hemoglobin 11.0 (L) 13.7 - 16.5 gm/dL [facility] Hematocrit 33.0 (L) 40.5 - 48.5 % [facility] MCV 95.1 (H) 82.9 - 93.1 fL [facility] MCH 31.7 27.5 - 32.1 pg [facility] MCHC 33.3 32.0 - 35.7 gm/dL [facility] Platelets 273 145 - 357 [facility] x10(3)/[facility] LABORATORY RDWSD 53.3 (H) 36.0 - 45.0 fL [facility] RDWCV 15.7 (H) 11.4 - 13.8 % [facility] MPV 9.2 7.6 - 12.9 fL [facility] nRBC % Auto 0.6 % [facility] nRBC Abs Auto 0.050 (H) 0.000 - 0.000 [facility] x10(3)/[facility] LABORATORY Specimen Blood Resulting Agency Comment Spec In Lab Performing Organization Address City/State/Zipcode Phone Number [address] LABORATORY BMP w/fasting Glucose (03/18/2020 5:00 AM EDT) Glucose Fasting 78 65 - 99 [facility] Comment: mg/dL [facility] ?Fasting* Glucose Interpretive Criteria LABORATORY Normal ?65-99 mg/dL Impaired Fasting glucose ?100-12 5 mg/dL Consistent with Diabetes Mellitus ? >or= 126 mg/ dL *Fasting is defined as no caloric intake for at least 8 hours In the absence of unequivocal hyperglycemia a plasma glucose value of >or= 126 mg/dL should be repeated on a subsequent day. Diagnosis and Classification of Diabetes Mellitus, Position Statement from the [employer]. ??Diabetes Care, Volume 33, Supplement 1, Sep 2009 BUN 22 (H) 10 - 20 [facility] mg/dL [facility] Creatinine 0.71 (L) 0.80 - 1.50 [facility] mg/dL [facility] Sodium 129 (L) 135 - 145 [facility] mmol/L [facility] Potassium 4.7 3.5 - 5.0 [facility] Comment: mmol/L [facility] Please note: ??Patients with WBC >100,000 may welch ve falsely elevated Potassium LABORATORY levels. ??For accurate Potassium quantification in the se patients send serum separator tube (gold top) fo r subsequent determinations. ??Contact the Clinical Chemistry Laboratory if there are any questions. Chloride 91 (L) 98 - 107 [facility] mmol/L [facility] CO2 29 22 - 31 [facility] mmol/L [facility] Anion Gap 9 5 - 15 [facility] mmol/L [facility] Calcium 9.5 8.5 - 10.5 [facility] mg/dL [facility] Estimated GFR 99 >=60 [facility] Comment: mL/min/1.73 [facility] The eGFR was calculated using the CKD-EPI equati on. As with all creatinine m?? LABORATORY based estimates of kidney function, eGFR values calcul ated with the CKD-EPI equation are not accurate in patients with acute kidne y failure, extremes of body mass or the acutely ill. http://Infinio/[facility] GROVECliqSearch eGFR 115 >=60 [facility] French Comment: mL/min/1.73 [facility] The eGFR was calculated using the CKD-EPI equati on. As with all creatinine m?? LABORATORY based estimates of kidney function, eGFR values calcul ated with the CKD-EPI equation are not accurate in patients with acute kidne y failure, extremes of body mass or the acutely ill. http://Infinio/[facility] GROVEnkf Specimen Blood Resulting Agency Comment Spec In Lab Performing Organization Address City/[facility] Centercode Phone Number [address] LABORATORY POCT Glucose (03/18/2020 12:15 AM EDT) POC Glucose 115 65 - 199 mg/dL [facility] Comment: [facility] Supplemental ranges: LABORATORY <140 mg/dL before meals <180 mg/dL all other times of the day Specimen Blood Performing Organization Address City/[facility]/Zipcode Phone Number [address] LABORATORY POCT Glucose (03/17/2020 8:48 PM EDT) POC Glucose 107 65 - 199 mg/dL [facility] Comment: [facility] Supplemental ranges: LABORATORY <140 mg/dL before meals <180 mg/dL all other times of the day Specimen Blood Performing Organization Address City/[facility] Centercode Phone Number [address] LABORATORY POCT Glucose (03/17/2020 6:11 PM EDT) POC Glucose 281 (H) 65 - 199 mg/dL MENG ROMEO Comment: [facility] Supplemental ranges: LABORATORY <140 mg/dL before meals <180 mg/dL all other times of the day Specimen Blood Performing Organization Address City/[facility] Centercode Phone Number [address] LABORATORY POCT Glucose (03/17/2020 4:07 PM EDT) POC Glucose 257 (H) 65 - 199 mg/dL MENG ROMEO Comment: [facility] Supplemental ranges: LABORATORY <140 mg/dL before meals <180 mg/dL all other times of the day Specimen Blood Performing Organization Address City/[facility] Centercodc Phone Number [address] LABORATORY POCT Glucose (03/17/2020 12:13 PM EDT) POC Glucose 170 65 - 199 mg/dL MENG ROMEO Comment: [facility] Supplemental ranges: LABORATORY <140 mg/dL before meals <180 mg/dL all other times of the day Specimen Blood Performing Organization Address City/[facility] Phone Number [address] LABORATORY POCT Glucose (03/17/2020 7:30 AM EDT) POC Glucose 102 65 - 199 mg/dL MENG ROMEO Comment: [facility] Supplemental ranges: LABORATORY <140 mg/dL before meals <180 mg/dL all other times of the day Specimen Blood Performing Organization Address City/[facility]/Zipcode Phone Number [address] LABORATORY Differential, Automated (03/17/2020 1:22 AM EDT) Neutrophils % 85.6 % [facility] Neutr Abs (ANC) 6.63 (H) 1.70 - 6.10 [facility] x10(3)/[facility] LABORATORY Lymphocytes % 5.7 % [facility] Lymphocytes Abs 0.4 (L) 0.9 - 3.2 [facility] x10(3)/[facility] LABORATORY Monocytes % 2.6 % [facility] Monocyte Abs 0.2 (L) 0.3 - 0.9 [facility] x10(3)/[facility]OR[facility]ORY Eosinophils % 0.1 % [facility] Eosinophils Abs 0.0 0.0 - 0.4 [facility] x10(3)/[facility]ORATORY Basophils % 0.3 % [facility] Basophils Abs 0.0 0.0 - 0.1 [facility] x10(3)/[facility] LABORATORY Immature Gran % 5.70 % [facility] Comment: [facility] Immature granulocytes(IG's)percentage and absolu te count will include LABORATORY metamyelocytes, myelocytes, and promyelo cytes. Blood smears from CBCs yielding IG's will be scanned manually for concor dance. If this scan disagrees with the automated IG or if promyelocytes are noted, a manual d ifferential will be performed. Jessica Gran Abs 0.44 (H) 0.00 - 0.04 [place] [id number](3)/[facility] LABORATORY Specimen Blood Resulting Agency Comment Spec In Lab Performing Organization Address City/State/Zipcode Phone Number [place] [address] HOSPITAL [facility]ORY Hemogram (03/17/2020 1:22 AM EDT) Pathologist Sig nature WBC 7.7 4.0 - 9.5 [facility] x10(3)/[facility] LABORATORY RBC 3.21 (L) 4.58 - 5.54 [facility] x10(6)/[facility] Hemoglobin 10.1 (L) 13.7 - 16.5 gm/dL [facility] Hematocrit 30.5 (L) 40.5 - 48.5 % [facility] MCV 95.0 (H) 82.9 - 93.1 fL [facility] MCH 31.5 27.5 - 32.1 pg [facility] MCHC 33.1 32.0 - 35.7 gm/dL [facility] Platelets 259 145 - 357 [facility] x10(3)/[facility] LABORATORY RDWSD 53.4 (H) 36.0 - 45.0 fL [facility] RDWCV 15.7 (H) 11.4 - 13.8 % [facility] MPV 9.4 7.6 - 12.9 fL [facility] nRBC % Auto 0.6 % [facility] nRBC Abs Auto 0.050 (H) 0.000 - 0.000 [facility] x10(3)/[facility] LABORATORY Specimen Blood Resulting Agency Comment Spec In Lab Performing Organization Address City/State/[facility] Centercode Phone Number [place] [address] [facility]PITAL LABORATORY BMP w/fasting Glucose (03/17/2020 1:22 AM EDT) Glucose Fasting 80 65 - 99 [facility] Comment: mg/dL [facility] ?Fasting* Glucose Interpretive Criteria LABORATORY Normal ?65-99 mg/dL Impaired Fasting glucose ?100-12 5 mg/dL Consistent with Diabetes Mellitus ? >or= 126 mg/ dL *Fasting is defined as no caloric intake for at least 8 hours In the absence of unequivocal hyperglycemia a plasma glucose value of >or= 126 mg/dL should be repeated on a subsequent day. Diagnosis and Classification of Diabetes Mellitus, Position Statement from the [employer]. ??Diabetes Care, Volume 33, Supplement 1, Sep 2009 BUN 19 10 - 20 [facility] mg/dL [facility] Creatinine 0.64 (L) 0.80 - 1.50 [facility] mg/dL [facility] Sodium 130 (L) 135 - 145 [facility] mmol/L [facility] Potassium 4.9 3.5 - 5.0 [facility] Comment: mmol/L [facility] Please note: ??Patients with WBC >100,000 may welch ve falsely elevated Potassium LABORATORY levels. ??For accurate Potassium quantification in the se patients send serum separator tube (gold top) fo r subsequent determinations. ??Contact the Clinical Chemistry Laboratory if there are any questions. Chloride 92 (L) 98 - 107 [facility]/L [facility] CO2 25 22 - 31 [facility]/L [facility] Anion Gap 13 5 - 15 [facility]/L [facility] Calcium 9.4 8.5 - 10.5 [facility] mg/dL [facility] Estimated GFR 103 >=60 [facility] Comment: mL/min/1.73 [facility] The eGFR was calculated using the CKD-EPI equati on. As with all creatinine m?? LABORATORY based estimates of kidney function, eGFR values calcul ated with the CKD-EPI equation are not accurate in patients with acute kidne y failure, extremes of body mass or the acutely ill. [email or web address] eGFR 120 >=60 [facility] French Comment: mL/min/1.73 [facility] The eGFR was calculated using the CKD-EPI equati on. As with all creatinine m?? LABORATORY based estimates of kidney function, eGFR values calcul ated with the CKD-EPI equation are not accurate in patients with acute kidne y failure, extremes of body mass or the acutely ill. http://Infinio/[facility] GROVEnkf Specimen Blood Resulting Agency Comment Spec In Lab Performing Organization Address City/[facility]/Zipcode Phone Number [address] LABORATORY POCT Glucose (03/16/2020 8:51 PM EDT) POC Glucose 166 65 - 199 mg/dL [facility] Comment: [facility] Supplemental ranges: LABORATORY <140 mg/dL before meals <180 mg/dL all other times of the day Specimen Blood Performing Organization Address City/[facility]/Zipcode Phone Number [address] LABORATORY POCT Glucose (03/16/2020 5:51 PM EDT) POC Glucose 195 65 - 199 mg/dL MENG ROMEO Comment: [facility] Supplemental ranges: LABORATORY <140 mg/dL before meals <180 mg/dL all other times of the day Specimen Blood Performing Organization Address City/[facility] Centercode Phone Number [address] LABORATORY POCT Glucose (03/16/2020 3:43 PM EDT) POC Glucose 255 (H) 65 - 199 mg/dL MENG ROMEO Comment: [facility] Supplemental ranges: LABORATORY <140 mg/dL before meals <180 mg/dL all other times of the day Specimen Blood Performing Organization Address City/[facility] Centercodc Phone Number [address] LABORATORY POCT Glucose (03/16/2020 12:02 PM EDT) [facility] POC Glucose 175 65 - 199 mg/dL MENG ROMEO Comment: [facility] Supplemental ranges: LABORATORY <140 mg/dL before meals <180 mg/dL all other times of the day Specimen Blood Performing Organization Address [facility] Phone Number [address] LABORATORY POCT Glucose (03/16/2020 7:26 AM EDT) [facility] POC Glucose 108 65 - 199 mg/dL MENG ROMEO Comment: [facility] Supplemental ranges: LABORATORY <140 mg/dL before meals <180 mg/dL all other times of the day Specimen Blood Performing Organization Address [facility] Phone Number [address] LABORATORY Differential, Automated (03/16/2020 2:12 AM EDT) Neutrophils % 88.2 % [facility] Neutr Abs (ANC) 5.94 1.70 - 6.10 [facility] x10(3)/[facility]ORATORY Lymphocytes % 4.8 % [facility] Lymphocytes Abs 0.3 (L) 0.9 - 3.2 [facility] x10(3)/[facility] LABORATORY Monocytes % 1.8 % [facility] Monocyte Abs 0.1 (L) 0.3 - 0.9 [facility] x10(3)/[facility] LABORATORY Eosinophils % 0.0 % [facility] Eosinophils Abs 0.0 0.0 - 0.4 [facility] x10(3)/[facility] LABORATORY Basophils % 0.3 % [facility] Basophils Abs 0.0 0.0 - 0.1 [facility] x10(3)/[facility] LABORATORY Immature Gran % 4.90 % [facility] Comment: [facility] Immature granulocytes(IG's)percentage and absolu te count will include LABORATORY metamyelocytes, myelocytes, and promyelo cytes. Blood smears from CBCs yielding IG's will be scanned manually for concor dance. If this scan disagrees with the automated IG or if promyelocytes are noted, a manual d ifferential will be performed. Jessica Gran Abs 0.33 (H) 0.00 - 0.04 [place] [id number](3)/[facility] LABORATORY Specimen Blood Resulting Agency Comment Spec In Lab Performing Organization Address City/State/Zipcode Phone Number [address] LABORATORY Hemogram (03/16/2020 2:12 AM EDT) Pathologist Sig nature WBC 6.7 4.0 - 9.5 [facility] x10(3)/[facility] LABORATORY RBC 3.18 (L) 4.58 - 5.54 [facility] x10(6)/[facility] LABORATORY Hemoglobin 10.2 (L) 13.7 - 16.5 gm/dL [facility] Hematocrit 29.8 (L) 40.5 - 48.5 % [facility] MCV 93.7 (H) 82.9 - 93.1 fL [facility] MCH 32.1 27.5 - 32.1 pg [facility] MCHC 34.2 32.0 - 35.7 gm/dL [facility] Platelets 244 145 - 357 [place] [id number](3)/[facility] LABORATORY RDWSD 54.4 (H) 36.0 - 45.0 fL [facility] RDWCV 15.8 (H) 11.4 - 13.8 % [facility] MPV 9.4 7.6 - 12.9 fL [facility] nRBC % Auto 0.9 % [facility] nRBC Abs Auto 0.060 (H) 0.000 - 0.000 [facility] x10(3)/[facility] LABORATORY Specimen Blood Resulting Agency Comment Spec In Lab Performing Organization Address City/State/Zipcode Phone Number [place], [place] [address] H[facility]PITAL LABORATORY BMP w/fasting Glucose (03/16/2020 2:12 AM EDT) Glucose Fasting 96 65 - 99 [facility] Comment: mg/dL [facility] ?Fasting* Glucose Interpretive Criteria LABORATORY Normal ?65-99 mg/dL Impaired Fasting glucose ?100-12 5 mg/dL Consistent with Diabetes Mellitus ? >or= 126 mg/ dL *Fasting is defined as no caloric intake for at least 8 hours In the absence of unequivocal hyperglycemia a plasma glucose value of >or= 126 mg/dL should be repeated on a subsequent day. Diagnosis and Classification of Diabetes Mellitus, Position Statement from the [place] [employer]. ??Diabetes Care, Volume 33, Supplement 1, Sep 2009 BUN 19 10 - 20 [facility]ORY Creatinine 0.56 (L) 0.80 - 1.50 [facility] mg/dL [facility] Sodium 130 (L) 135 - 145 [facility] mmol/L [facility] Potassium 4.7 3.5 - 5.0 [facility] Comment: mmol/L [facility] Please note: ??Patients with WBC >100,000 may welch ve falsely elevated Potassium LABORATORY levels. ??For accurate Potassium quantification in the se patients send serum separator tube (gold top) fo r subsequent determinations. ??Contact the Clinical Chemistry Laboratory if there are any questions. Chloride 93 (L) 98 - 107 [facility] mmol/L [facility] CO2 26 22 - 31 [facility] mmol/L [facility] Anion Gap 11 5 - 15 [facility] mmol/L [facility] Calcium 9.2 8.5 - 10.5 [facility] mg/dL [facility] Estimated GFR 109 >=60 [facility] Comment: mL/min/1.73 [facility] The eGFR was calculated using the CKD-EPI equati on. As with all creatinine m?? LABORATORY based estimates of kidney function, eGFR values calcul ated with the CKD-EPI equation are not accurate in patients with acute kidne y failure, extremes of body mass or the acutely ill. [email or web address]/[facility] GROVESocialDeck eGFR 127 >=60 [facility] French Comment: mL/min/1.73 [facility] The eGFR was calculated using the CKD-EPI equati on. As with all creatinine m?? LABORATORY based estimates of kidney function, eGFR values calcul ated with the CKD-EPI equation are not accurate in patients with acute kidne y failure, extremes of body mass or the acutely ill. http://Infinio/[facility] UPMCCymbet Specimen Blood Resulting Agency Comment Spec In Lab Performing Organization Address City/[facility]/Zipcode Phone Number [address] LABORATORY POCT Glucose (03/15/2020 8:12 PM EDT) POC Glucose 192 65 - 199 mg/dL MENG AGUEDA Comment: [facility] Supplemental ranges: LABORATORY <140 mg/dL before meals <180 mg/dL all other times of the day Specimen Blood Performing Organization Address City/State/Zipcode Phone Number [address] LABORATORY POCT Glucose (03/15/2020 4:03 PM EDT) POC Glucose 215 (H) 65 - 199 mg/dL [facility] [place] Comment: [facility] Supplemental ranges: LABORATORY <140 mg/dL before meals <180 mg/dL all other times of the day Specimen Blood Performing Organization Address City/[facility]/Zipcode Phone Number [address] LABORATORY POCT Glucose (03/15/2020 11:49 AM EDT) POC Glucose 121 65 - 199 mg/dL [facility] Comment: [facility] Supplemental ranges: LABORATORY <140 mg/dL before meals <180 mg/dL all other times of the day Specimen Blood Performing Organization Address [facility] Phone Number [address] LABORATORY Osmolality, urine, random (03/15/2020 11:09 AM EDT) Pathologist Sig nature U Osmolality 675 50 - 1,200 mOsm/kg [facility] LABORATORY Specimen Urine Resulting Agency Comment Spec In Lab Performing Organization Address [facility] Phone Number [address] LABORATORY Creatinine, urine, random (03/15/2020 11:09 AM EDT) Pathologist Sig nature U Creatinine 58 mg/dL [facility] ITAL LABORATORY Specimen Urine Resulting Agency Comment Spec In Lab Performing Organization Address [facility] Phone Number [address] LABORATORY Electrolytes, urine, random (03/15/2020 11:09 AM EDT) Pathologist Sig nature U Sodium 99 mmol/L [facility] ITAL LABORATORY U Potassium 20 mmol/L [facility] LABORATORY U Chloride 75 mmol/L [facility] LABORATORY Specimen Urine Resulting Agency Comment Spec In Lab Performing Organization Address [facility] Phone Number [address] LABORATORY XR Abdomen 1 view (Generic) (03/15/2020 9:54 AM EDT) Specimen Impressions Performed At Normal bowel gas pattern. RAD Thank you for letting us participate in the care of th is patient. For questions regarding this report, please contact the number below . ? Narrative Performed At EXAMINATION: XR ABDOMEN 1 VIEW (GENERIC) [facility] CLINICAL HISTORY: Abdominal distension TECHNIQUE: AP portable supine abdomen COMPARISON: 03/10/2020. FINDINGS: There is a moderate amount of stool in the proximal welch lf of the colon. There is no large or small bowel dilatation to suggest bowel ob struction. No abnormal calcifications seen. Please note that the very most ca udal portion of the pelvis is not included on this study. Procedure Note Department, Radiology - 03/15/2020 10:25 AM EDT EXAMINATION: XR ABDOMEN 1 VIEW (GENERIC) CLINICAL HISTORY: Abdominal distension TECHNIQUE: AP portable supine abdomen COMPARISON: 03/10/2020. FINDINGS: There is a moderate amount of stool in t he proximal half of the colon. There is no large or small bowel dilatation to katz ggest bowel obstruction. No abnormal calcifications seen. Please note that th e very most caudal portion of the pelvis is not included on this study. IMPRESSION Normal bowel gas pattern. Thank you for letting us participate in the care of this patient. For questions regarding this report, please contact [facility] number below. Performing Organization Address [facility] Phone Number [place], [place] POCT Glucose (03/15/2020 7:45 AM EDT) POC Glucose 120 65 - 199 mg/dL [facility] [place] Comment: [facility] Supplemental ranges: LABORATORY <140 mg/dL before meals <180 mg/dL all other times of the day Specimen Blood Performing Organization Address City/[facility] Phone Number MENG AGUEDA [address] LABORATORY POCT Glucose (03/15/2020 4:07 AM EDT) POC Glucose 113 65 - 199 mg/dL MENG ROMEO Comment: [facility] Supplemental ranges: LABORATORY <140 mg/dL before meals <180 mg/dL all other times of the day Specimen Blood Performing Organization Address [facility] Phone Number [address] LABORATORY Osmolality (03/15/2020 12:40 AM EDT) Pathologist Sig nature Osmolality 277 275 - 295 mOsm/kg [facility] LABORATORY Specimen Blood Resulting Agency Comment Spec In Lab Performing Organization Address [facility] Phone Number [address] LABORATORY Differential, Automated (03/15/2020 12:40 AM EDT) Neutrophils % 87.1 % [facility] LABORATORY Neutr Abs (ANC) 6.47 (H) 1.70 - 6.10 [facility] x10(3)/[facility] LABORATORY Lymphocytes % 5.6 % [facility] LABORATORY Lymphocytes Abs 0.4 (L) 0.9 - 3.2 [facility] x10(3)/[facility] LABORATORY Monocytes % 1.6 % [facility] LABORATORY Monocyte Abs 0.1 (L) 0.3 - 0.9 [facility] x10(3)/[facility] LABORATORY Eosinophils % 0.0 % [facility] LABORATORY Eosinophils Abs 0.0 0.0 - 0.4 [facility] x10(3)/[facility] LABORATORY Basophils % 0.1 % [facility] LABORATORY Basophils Abs 0.0 0.0 - 0.1 [facility] x10(3)/[facility] LABORATORY Immature Gran % 5.60 % [facility] Comment: [facility] Immature granulocytes(IG's)percentage and absolu te count will include LABORATORY metamyelocytes, myelocytes, and promyelo cytes. Blood smears from CBCs yielding IG's will be scanned manually for concor dance. If this scan disagrees with the automated IG or if promyelocytes are noted, a manual d ifferential will be performed. Jessica Gran Abs 0.42 (H) 0.00 - 0.04 [facility] x10(3)/[facility] LABORATORY Specimen Blood Resulting Agency Comment Spec In Lab Performing Organization Address [facility]/Zipcode Phone Number [place] [phone] [facility] LABORATORY Hemogram (03/15/2020 12:40 AM EDT) Pathologist Sig nature WBC 7.4 4.0 - 9.5 [facility] x10(3)/[facility] LABORATORY RBC 3.12 (L) 4.58 - 5.54 [facility] x10(6)/[facility] LABORATORY Hemoglobin 9.8 (L) 13.7 - 16.5 gm/dL [facility] LABORATORY Hematocrit 29.1 (L) 40.5 - 48.5 % [facility] LABORATORY MCV 93.3 (H) 82.9 - 93.1 fL [facility] LABORATORY MCH 31.4 27.5 - 32.1 pg [facility] LABORATORY MCHC 33.7 32.0 - 35.7 gm/dL [facility] LABORATORY Platelets 266 145 - 357 [facility] x10(3)/[facility] LABORATORY RDWSD 53.1 (H) 36.0 - 45.0 fL [facility] LABORATORY RDWCV 15.7 (H) 11.4 - 13.8 % [facility] LABORATORY MPV 9.6 7.6 - 12.9 fL [facility] LABORATORY nRBC % Auto 1.1 % [facility] LABORATORY nRBC Abs Auto 0.080 (H) 0.000 - 0.000 [facility] x10(3)/[facility] LABORATORY Specimen Blood Resulting Agency Comment Spec In Lab Performing Organization Address City/State/Zipcode Phone Number [place] [phone] [facility] LABORATORY BMP w/fasting Glucose (03/15/2020 12:40 AM EDT) Glucose Fasting 103 (H) 65 - 99 [facility] Comment: mg/dL [facility] ?Fasting* Glucose Interpretive Criteria LABORATORY Normal ?65-99 mg/dL Impaired Fasting glucose ?100-12 5 mg/dL Consistent with Diabetes Mellitus ? >or= 126 mg/ dL *Fasting is defined as no caloric intake for at least 8 hours In the absence of unequivocal hyperglycemia a plasma glucose value of >or= 126 mg/dL should be repeated on a subsequent day. Diagnosis and Classification of Diabetes Mellitus, Position Statement from the [employer]. ??Diabetes Care, Volume 33, Supplement 1, Sep 2009 BUN 25 (H) 10 - 20 MENG [place]ED[place] mg/dL [facility] LABORATORY Creatinine 0.60 (L) 0.80 - 1.50 [facility] [place] mg/dL [facility] LABORATORY Sodium 129 (L) 135 - 145 [facility] mmol/L [facility] LABORATORY Potassium 4.9 3.5 - 5.0 [facility] [place] Comment: mmol/L [facility] Please note: ??Patients with WBC >100,000 may welch ve falsely elevated Potassium LABORATORY levels. ??For accurate Potassium quantification in the se patients send serum separator tube (gold top) fo r subsequent determinations. ??Contact the Clinical Chemistry Laboratory if there are any questions. Chloride 93 (L) 98 - 107 [facility] mmol/L [facility] LABORATORY CO2 25 22 - 31 [facility] [place] mmol/L [facility] LABORATORY Anion Gap 11 5 - 15 [facility] mmol/L [facility] LABORATORY Calcium 9.3 8.5 - 10.5 [facility] [place] mg/dL [facility] LABORATORY Estimated GFR 106 >=60 [facility] [place] Comment: mL/min/1.73 [facility] The eGFR was calculated using the CKD-EPI equati on. As with all creatinine m?? LABORATORY based estimates of kidney function, eGFR values calcul ated with the CKD-EPI equation are not accurate in patients with acute kidne y failure, extremes of body mass or the acutely ill. [email or web address] eGFR 123 >=60 [facility] French Comment: mL/min/1.73 [facility] The eGFR was calculated using the CKD-EPI equati on. As with all creatinine m?? LABORATORY based estimates of kidney function, eGFR values calcul ated with the CKD-EPI equation are not accurate in patients with acute kidne y failure, extremes of body mass or the acutely ill. [email or web address] Specimen Blood Resulting Agency Comment Spec In Lab Performing Organization Address City/[facility]/Zipcode Phone Number [address] LABORATORY CK (03/15/2020 12:40 AM EDT) Pathologist Sig nature CK, Total 25 0 - 200 unit/L [facility] LABORATORY Specimen Blood Resulting Agency Comment Spec In Lab Performing Organization Address City/[facility] Phone Number [address] LABORATORY Phosphorus (03/15/2020 12:40 AM EDT) Pathologist Sig nature Phosphorus 3.1 2.5 - 4.5 mg/dL [facility] LABORATORY Specimen Blood Resulting Agency Comment Spec In Lab Performing Organization Address City/[facility] Phone Number [address] LABORATORY Magnesium (03/15/2020 12:40 AM EDT) Pathologist Sig nature Magnesium 0.89 0.69 - 1.07 mmol/L [facility] LABORATORY Specimen Blood Resulting Agency Comment Spec In Lab Performing Organization Address City/[facility] Phone Number [address] LABORATORY POCT Glucose (03/15/2020 12:35 AM EDT) POC Glucose 123 65 - 199 mg/dL MENG ROMEO Comment: [facility] Supplemental ranges: LABORATORY <140 mg/dL before meals <180 mg/dL all other times of the day Specimen Blood Performing Organization Address City/[facility] Phone Number [address] LABORATORY POCT Glucose (03/15/2020 12:34 AM EDT) POC Glucose 121 65 - 199 mg/dL MENG AGUEDA Comment: [facility] Supplemental ranges: LABORATORY <140 mg/dL before meals <180 mg/dL all other times of the day Specimen Blood Performing Organization Address City/[facility]/Zipcode Phone Number [address] LABORATORY POCT Glucose (03/14/2020 7:50 PM EDT) POC Glucose 281 (H) 65 - 199 mg/dL MENG ROMEO Comment: [facility] Supplemental ranges: LABORATORY <140 mg/dL before meals <180 mg/dL all other times of the day Specimen Blood Performing Organization Address City/State/Zipcode Phone Number [address] LABORATORY POCT Glucose (03/14/2020 6:04 PM EDT) POC Glucose 335 (H) 65 - 199 mg/dL MENG ROMEO Comment: [facility] Supplemental ranges: LABORATORY <140 mg/dL before meals <180 mg/dL all other times of the day Specimen Blood Performing Organization Address City/State/Zipcode Phone Number [address] LABORATORY POCT Glucose (03/14/2020 4:04 PM EDT) POC Glucose 301 (H) 65 - 199 mg/dL MENG ROMEO Comment: [facility] Supplemental ranges: LABORATORY <140 mg/dL before meals <180 mg/dL all other times of the day Specimen Blood Performing Organization Address City/[facility]/Zipcode Phone Number [address] LABORATORY POCT Glucose (03/14/2020 11:52 AM EDT) POC Glucose 166 65 - 199 mg/dL MENG ROMEO Comment: [facility] Supplemental ranges: LABORATORY <140 mg/dL before meals <180 mg/dL all other times of the day Specimen Blood Performing Organization Address City/State/Zipcode Phone Number [address] LABORATORY POCT Glucose (03/14/2020 7:30 AM EDT) POC Glucose 175 65 - 199 mg/dL MENG ROMEO Comment: [facility] Supplemental ranges: LABORATORY <140 mg/dL before meals <180 mg/dL all other times of the day Specimen Blood Performing Organization Address City/State/Zipcode Phone Number [address] LABORATORY POCT Glucose (03/14/2020 5:10 AM EDT) Pathologist [facility] POC Glucose 247 (H) 65 - 199 mg/dL [facility] Comment: [facility] Supplemental ranges: LABORATORY <140 mg/dL before meals <180 mg/dL all other times of the day Specimen Blood Performing Organization Address City/[facility] Phone Number [address] LABORATORY Differential, Automated (03/14/2020 12:40 AM EDT) [facility] Neutrophils % 93.6 % [facility] LABORATORY Neutr Abs (ANC) 9.19 (H) 1.70 - 6.10 [facility] x10(3)/[facility] LABORATORY Lymphocytes % 2.0 % [facility] LABORATORY Lymphocytes Abs 0.2 (L) 0.9 - 3.2 [facility] x10(3)/[facility] LABORATORY Monocytes % 0.9 % [facility] LABORATORY Monocyte Abs 0.1 (L) 0.3 - 0.9 [facility] x10(3)/[facility] LABORATORY Eosinophils % 0.1 % [facility] LABORATORY Eosinophils Abs 0.0 0.0 - 0.4 [facility] x10(3)/[facility] LABORATORY Basophils % 0.3 % [facility] LABORATORY Basophils Abs 0.0 0.0 - 0.1 [facility] x10(3)/[facility] LABORATORY Immature Gran % 3.10 % [facility] Comment: [facility] Immature granulocytes(IG's)percentage and absolu te count will include LABORATORY metamyelocytes, myelocytes, and promyelo cytes. Blood smears from CBCs yielding IG's will be scanned manually for concor dance. If this scan disagrees with the automated IG or if promyelocytes are noted, a manual d ifferential will be performed. Jessica Gran Abs 0.30 (H) 0.00 - 0.04 [facility] x10(3)/[facility] LABORATORY Specimen Blood Resulting Agency Comment Spec In Lab Performing Organization Address City/[facility] Phone Number [address] LABORATORY Hemogram (03/14/2020 12:40 AM EDT) Pathologist Sig nature WBC 9.8 (H) 4.0 - 9.5 [facility] x10(3)/[facility] LABORATORY RBC 3.45 (L) 4.58 - 5.54 [facility] x10(6)/[facility] LABORATORY Hemoglobin 11.0 (L) 13.7 - 16.5 gm/dL [facility] LABORATORY Hematocrit 32.1 (L) 40.5 - 48.5 % [facility] LABORATORY MCV 93.0 82.9 - 93.1 fL [facility] LABORATORY MCH 31.9 27.5 - 32.1 pg [facility] LABORATORY MCHC 34.3 32.0 - 35.7 gm/dL [facility] LABORATORY Platelets 232 145 - 357 [facility] x10(3)/[facility] LABORATORY RDWSD 53.6 (H) 36.0 - 45.0 fL [facility] LABORATORY RDWCV 16.0 (H) 11.4 - 13.8 % [facility] LABORATORY MPV 8.8 7.6 - 12.9 fL [facility] LABORATORY nRBC % Auto 0.5 % [facility] LABORATORY nRBC Abs Auto 0.050 (H) 0.000 - 0.000 [facility] x10(3)/[facility] LABORATORY Specimen Blood Resulting Agency Comment Spec In Lab Performing Organization Address City/State/Zipcode Phone Number [address] LABORATORY BMP w/fasting Glucose (03/14/2020 12:40 AM EDT) Glucose Fasting 181 (H) 65 - 99 [facility] Comment: mg/dL [facility] ?Fasting* Glucose Interpretive Criteria LABORATORY Normal ?65-99 mg/dL Impaired Fasting glucose ?100-12 5 mg/dL Consistent with Diabetes Mellitus ? >or= 126 mg/ dL *Fasting is defined as no caloric intake for at least 8 hours In the absence of unequivocal hyperglycemia a plasma glucose value of >or= 126 mg/dL should be repeated on a subsequent day. Diagnosis and Classification of Diabetes Mellitus, Position Statement from the [place] [employer]. ??Diabetes Care, Volume 33, Supplement 1, Sep 2009 BUN 18 10 - 20 [facility] [place] mg/dL [facility] LABORATORY Creatinine 0.62 (L) 0.80 - 1.50 [facility] [place] mg/dL [facility] LABORATORY Sodium 131 (L) 135 - 145 [facility] mmol/L [facility] LABORATORY Potassium 5.2 (H) 3.5 - 5.0 [facility] Comment: mmol/L [facility] Please note: ??Patients with WBC >100,000 may welch ve falsely elevated Potassium LABORATORY levels. ??For accurate Potassium quantification in the se patients send serum separator tube (gold top) fo r subsequent determinations. ??Contact the Clinical Chemistry Laboratory if there are any questions. Chloride 93 (L) 98 - 107 [facility] mmol/L [facility] LABORATORY CO2 25 22 - 31 [facility] [place] mmol/L [facility] LABORATORY Anion Gap 13 5 - 15 [facility] mmol/L [facility] LABORATORY Calcium 9.3 8.5 - 10.5 [facility] [place] mg/dL [facility] LABORATORY Estimated GFR 105 >=60 [facility] Comment: mL/min/1.73 [facility] The eGFR was calculated using the CKD-EPI equati on. As with all creatinine m?? LABORATORY based estimates of kidney function, eGFR values calcul ated with the CKD-EPI equation are not accurate in patients with acute kidne y failure, extremes of body mass or the acutely ill. [email or web address] [email or web address] eGFR 122 >=60 [facility] French Comment: mL/min/1.73 [facility] The eGFR was calculated using the CKD-EPI equati on. As with all creatinine m?? LABORATORY based estimates of kidney function, eGFR values calcul ated with the CKD-EPI equation are not accurate in patients with acute kidne y failure, extremes of body mass or the acutely ill. [email or web address] [email or web address] Specimen Blood Resulting Agency Comment Spec In Lab Performing Organization Address City/[facility]/Zipcode Phone Number [address] LABORATORY POCT Glucose (03/14/2020 12:27 AM EDT) POC Glucose 185 65 - 199 mg/dL MENG ROMEO Comment: [facility] Supplemental ranges: LABORATORY <140 mg/dL before meals <180 mg/dL all other times of the day Specimen Blood Performing Organization Address City/[facility] Phone Number [address] LABORATORY POCT Glucose (03/13/2020 8:08 PM EDT) POC Glucose 142 65 - 199 mg/dL MENG ROMEO Comment: [facility] Supplemental ranges: LABORATORY <140 mg/dL before meals <180 mg/dL all other times of the day Specimen Blood Performing Organization Address [facility] Phone Number [address] LABORATORY POCT Glucose (03/13/2020 3:51 PM EDT) POC Glucose 204 (H) 65 - 199 mg/dL MENG ROMEO Comment: [facility] Supplemental ranges: LABORATORY <140 mg/dL before meals <180 mg/dL all other times of the day Specimen Blood Performing Organization Address [facility] Phone Number [address] LABORATORY POCT Glucose (03/13/2020 11:54 AM EDT) POC Glucose 179 65 - 199 mg/dL MENG ROMEO Comment: [facility] Supplemental ranges: LABORATORY <140 mg/dL before meals <180 mg/dL all other times of the day Specimen Blood Performing Organization Address City/[facility]/Zipcode Phone Number [address] LABORATORY POCT Glucose (03/13/2020 8:10 AM EDT) POC Glucose 158 65 - 199 mg/dL MENG ROMEO Comment: [facility] Supplemental ranges: LABORATORY <140 mg/dL before meals <180 mg/dL all other times of the day Specimen Blood Performing Organization Address City/State/[facility] Phone Number [address] LABORATORY POCT Glucose (03/13/2020 6:18 AM EDT) Pathologist [facility] POC Glucose 220 (H) 65 - 199 mg/dL MENG ROMEO Comment: [facility] Supplemental ranges: LABORATORY <140 mg/dL before meals <180 mg/dL all other times of the day Specimen Blood Performing Organization Address [facility] Phone Number [address] LABORATORY POCT Glucose (03/13/2020 4:32 AM EDT) [facility] POC Glucose 260 (H) 65 - 199 mg/dL MENG ROMEO Comment: [facility] Supplemental ranges: LABORATORY <140 mg/dL before meals <180 mg/dL all other times of the day Specimen Blood Performing Organization Address [facility] Phone Number [address] LABORATORY Scan, Peripheral Blood (03/13/2020 1:25 AM EDT) Pathologist Sig nature Plat Estimate Normal [facility] LABORATORY RBC Morphology Abnormal [facility] Stippled RBCs Present >1/HPF [facility] Giant Platelets Less than 1 /HPF [facility] Specimen Blood Resulting Agency Comment Spec In Lab Performing Organization Address [facility] Phone Number [address] LABORATORY Differential, Automated (03/13/2020 1:25 AM EDT) Pathologist [facility] Neutrophils % 93.6 % [facility] Neutr Abs (ANC) 10.18 (H) 1.70 - 6.10 [facility] x10(3)/[facility] LABORATORY Lymphocytes % 2.2 % [facility] Lymphocytes Abs 0.2 (L) 0.9 - 3.2 [facility] x10(3)/[facility] LABORATORY Monocytes % 0.9 % [facility] Monocyte Abs 0.1 (L) 0.3 - 0.9 [facility] x10(3)/[facility] LABORATORY Eosinophils % 0.0 % [facility] Eosinophils Abs 0.0 0.0 - 0.4 [facility] x10(3)/[facility] LABORATORY Basophils % 0.1 % [facility] Basophils Abs 0.0 0.0 - 0.1 [facility] x10(3)/[facility] LABORATORY Immature Gran % 3.20 % [facility] Comment: [facility] Immature granulocytes(IG's)percentage and absolu te count will include LABORATORY metamyelocytes, myelocytes, and promyelo cytes. Blood smears from CBCs yielding IG's will be scanned manually for concor dance. If this scan disagrees with the automated IG or if promyelocytes are noted, a manual d ifferential will be performed. Jessica Gran Abs 0.35 (H) 0.00 - 0.04 [place] [id number](3)/[facility] LABORATORY Specimen Blood Resulting Agency Comment Spec In Lab Performing Organization Address City/State/Zipcode Phone Number [place] [phone] HOSPITAL LABORATORY Hemogram (03/13/2020 1:25 AM EDT) Pathologist Sig nature WBC 10.9 (H) 4.0 - 9.5 [facility] x10(3)/[facility] LABORATORY RBC 3.19 (L) 4.58 - 5.54 [facility] x10(6)/[facility] LABORATORY Hemoglobin 10.0 (L) 13.7 - 16.5 gm/dL [facility] Hematocrit 29.7 (L) 40.5 - 48.5 % [facility] MCV 93.1 82.9 - 93.1 fL [facility] MCH 31.3 27.5 - 32.1 pg [facility] MCHC 33.7 32.0 - 35.7 gm/dL [facility] Platelets 223 145 - 357 [facility] x10(3)/[facility] LABORATORY RDWSD 54.5 (H) 36.0 - 45.0 fL [facility] RDWCV 16.2 (H) 11.4 - 13.8 % [facility] MPV 9.0 7.6 - 12.9 fL [facility] nRBC % Auto 0.6 % [facility] nRBC Abs Auto 0.060 (H) 0.000 - 0.000 [facility] x10(3)/[facility] LABORATORY Specimen Blood Resulting Agency Comment Spec In Lab Performing Organization Address City/State/Zipcode Phone Number [place], [place] [phone] H[facility]PITAL LABORATORY BMP w/fasting Glucose (03/13/2020 1:25 AM EDT) Glucose Fasting 178 (H) 65 - 99 [facility] Comment: mg/dL [facility] ?Fasting* Glucose Interpretive Criteria LABORATORY Normal ?65-99 mg/dL Impaired Fasting glucose ?100-12 5 mg/dL Consistent with Diabetes Mellitus ? >or= 126 mg/ dL *Fasting is defined as no caloric intake for at least 8 hours In the absence of unequivocal hyperglycemia a plasma glucose value of >or= 126 mg/dL should be repeated on a subsequent day. Diagnosis and Classification of Diabetes Mellitus, Position Statement from the [employer]. ??Diabetes Care, Volume 33, Supplement 1, Sep 2009 BUN 18 10 - 20 [facility] mg/dL [facility] Creatinine 0.68 (L) 0.80 - 1.50 [facility] mg/dL [facility] Sodium 132 (L) 135 - 145 [facility] mmol/L [facility] Potassium 5.1 (H) 3.5 - 5.0 [facility] Comment: mmol/L [facility] Please note: ??Patients with WBC >100,000 may welch ve falsely elevated Potassium LABORATORY levels. ??For accurate Potassium quantification in the se patients send serum separator tube (gold top) fo r subsequent determinations. ??Contact the Clinical Chemistry Laboratory if there are any questions. Chloride 96 (L) 98 - 107 [facility] mmol/L [facility] CO2 24 22 - 31 [facility] mmol/L [facility] Anion Gap 12 5 - 15 [facility] mmol/L [facility] Calcium 8.9 8.5 - 10.5 [facility] mg/dL [facility] Estimated GFR 101 >=60 [facility] Comment: mL/min/1.73 [facility] The eGFR was calculated using the CKD-EPI equati on. As with all creatinine m?? LABORATORY based estimates of kidney function, eGFR values calcul ated with the CKD-EPI equation are not accurate in patients with acute kidne y failure, extremes of body mass or the acutely ill. http://Infinio/[facility] GROVESocialDeck eGFR 117 >=60 [facility] French Comment: mL/min/1.73 [facility] The eGFR was calculated using the CKD-EPI equati on. As with all creatinine m?? LABORATORY based estimates of kidney function, eGFR values calcul ated with the CKD-EPI equation are not accurate in patients with acute kidne y failure, extremes of body mass or the acutely ill. http://Infinio/[facility] UPMCCymbet Specimen Blood Resulting Agency Comment Spec In Lab Performing Organization Address City/[facility]/Zipcode Phone Number [address] LABORATORY POCT Glucose (03/12/2020 11:10 PM EDT) POC Glucose 207 (H) 65 - 199 mg/dL [facility] Comment: [facility] Supplemental ranges: LABORATORY <140 mg/dL before meals <180 mg/dL all other times of the day Specimen Blood Performing Organization Address City/[facility]/Zipcode Phone Number [address] LABORATORY POCT Glucose (03/12/2020 8:07 PM EDT) POC Glucose 181 65 - 199 mg/dL [facility] Comment: [facility] Supplemental ranges: LABORATORY <140 mg/dL before meals <180 mg/dL all other times of the day Specimen Blood Performing Organization Address City/[facility]/Zipcode Phone Number [address] LABORATORY POCT Glucose (03/12/2020 6:07 PM EDT) POC Glucose 228 (H) 65 - 199 mg/dL [facility] Comment: [facility] Supplemental ranges: LABORATORY <140 mg/dL before meals <180 mg/dL all other times of the day Specimen Blood Performing Organization Address City/State/Zipcode Phone Number [address] LABORATORY POCT Glucose (03/12/2020 3:50 PM EDT) POC Glucose 308 (H) 65 - 199 mg/dL [facility] Comment: [facility] Supplemental ranges: LABORATORY <140 mg/dL before meals <180 mg/dL all other times of the day Specimen Blood Performing Organization Address City/State/Zipcode Phone Number [address] LABORATORY POCT Glucose (03/12/2020 11:14 AM EDT) POC Glucose 145 65 - 199 mg/dL [facility] Comment: [facility] Supplemental ranges: LABORATORY <140 mg/dL before meals <180 mg/dL all other times of the day Specimen Blood Performing Organization Address City/[facility]/Zipcode Phone Number [address] LABORATORY POCT Glucose (03/12/2020 8:05 AM EDT) POC Glucose 204 (H) 65 - 199 mg/dL [facility] Comment: [facility] Supplemental ranges: LABORATORY <140 mg/dL before meals <180 mg/dL all other times of the day Specimen Blood Performing Organization Address City/[facility]/Zipcode Phone Number [address] LABORATORY POCT Glucose (03/12/2020 4:32 AM EDT) POC Glucose 274 (H) 65 - 199 mg/dL [facility] Comment: [facility] Supplemental ranges: LABORATORY <140 mg/dL before meals <180 mg/dL all other times of the day Specimen Blood Performing Organization Address City/State/Zipcode Phone Number [address] LABORATORY BLOOD GAS 2 ARTERIAL (03/12/2020 4:04 AM EDT) pH Art 7.54 (H) 7.35 - 7.45 [facility] pCO2 Art 27 (L) 35 - 45 mmHg [facility] pO2 Art 64 (L) 85 - 104 mmHg [facility] HCO3 Art 23.0 20.0 - 26.0 [facility] mmol/L [facility] BE Art 0.4 -3.0 - 3.0 [facility] mmol/L [facility] Hgb Blood Gas 11.6 (L) 13.7 - 16.5 [facility] gm/dL [facility] O2HB Art 92.6 (L) 94.0 - 97.0 % [facility] COHB Art 0.1 % [facility] Comment: [facility] Nonsmokers: 0.5-1.5% COHB LABORATORY Smokers: Variable, but usually less than 10% Toxic: 20-30% COHB Lethal: Greater than 60% COHB METHB Art 0.7 <=1.5 % [facility] Na Whole Blood 129 (L) 135 - 145 [facility] mmol/L [facility] K Whole Blood 4.6 3.5 - 5.0 [facility] Comment: mmol/L [facility] Please note: Patients with WBC >100,000 may have falsely elevated Potassium LABORATORY levels. Contact the Clinical Chemistry Laborator y if there are any questions. ICa Whole Blood 1.16 1.15 - 1.33 [facility] Comment: mmol/L [facility] Note: ??Total bilirubin higher than 20 mg/dL may lead to falsely low ionized LABORATORY calcium. CL Whole Blood 100 98 - 107 [facility] mmol/L [facility]ORY Gluc Whole Bld 239 (H)Comment: 65 - 199 [facility] Diabetes: >=200 mg/dL [facility] mg/dL plus LABORATORY symptoms. Lactate WB 2.1 0.5 - 2.2 [facility] mmol/L [facility] FIO2 Art 80 % [facility] PF Ratio Art 80 [facility] Specimen Blood Performing Organization Address City/State/Zipcode Phone Number [place] [phone] HOSPITAL LABORATORY Scan, Peripheral Blood (03/12/2020 12:45 AM EDT) Pathologist Sig nature Plat Estimate Normal [facility] RBC Morphology Normal [facility] Toxic Granulation Present [facility] Specimen Blood Resulting Agency Comment Spec In Lab Performing Organization Address City/[facility]/Zipcode Phone Number [address] LABORATORY pro-Brain Natriuretic Peptide (03/12/2020 12:45 AM EDT) Pathologist Sig nature ProBNP 80 <=125 pg/mL [facility] Specimen Blood Resulting Agency Comment Spec In Lab Performing Organization Address City/[facility]/Zipcode Phone Number [address] LABORATORY Differential, Automated (03/12/2020 12:45 AM EDT) Neutrophils % 89.0 % [facility] Neutr Abs (ANC) 7.60 (H) 1.70 - 6.10 [facility] x10(3)/[facility]ORATORY Lymphocytes % 3.7 % [facility] Lymphocytes Abs 0.3 (L) 0.9 - 3.2 [facility] x10(3)/[facility] LABORATORY Monocytes % 1.5 % [facility] Monocyte Abs 0.1 (L) 0.3 - 0.9 [facility] x10(3)/[facility]ORATORY Eosinophils % 0.0 % [facility] Eosinophils Abs 0.0 0.0 - 0.4 [facility] x10(3)/[facility]ORATORY Basophils % 0.4 % [facility] Basophils Abs 0.0 0.0 - 0.1 [facility] x10(3)/[facility] LABORATORY Immature Gran % 5.40 % [facility] Comment: [facility] Immature granulocytes(IG's)percentage and absolu te count will include LABORATORY metamyelocytes, myelocytes, and promyelo cytes. Blood smears from CBCs yielding IG's will be scanned manually for concor danadela. If this scan disagrees with the automated IG or if promyelocytes are noted, a manual d ifferential will be performed. Jessica Gran Abs 0.46 (H) 0.00 - 0.04 [facility] x10(3)/[facility] LABORATORY Specimen Blood Resulting Agency Comment Spec In Lab Performing Organization Address [facility] Phone Number [address] LABORATORY Hemogram (03/12/2020 12:45 AM EDT) Pathologist Sig nature WBC 8.5 4.0 - 9.5 [facility] x10(3)/[facility] LABORATORY RBC 3.30 (L) 4.58 - 5.54 [facility] x10(6)/[facility]ORATORY Hemoglobin 10.3 (L) 13.7 - 16.5 gm/dL [facility] Hematocrit 31.3 (L) 40.5 - 48.5 % [facility] MCV 94.8 (H) 82.9 - 93.1 fL [facility] MCH 31.2 27.5 - 32.1 pg [facility] MCHC 32.9 32.0 - 35.7 gm/dL [facility] Platelets 256 145 - 357 [facility] [employer](3)/[facility] LABORATORY RDWSD 57.1 (H) 36.0 - 45.0 fL [facility] RDWCV 16.6 (H) 11.4 - 13.8 % [facility] MPV 8.9 7.6 - 12.9 fL [facility] nRBC % Auto 2.0 % [facility] nRBC Abs Auto 0.170 (H) 0.000 - 0.000 [facility] x10(3)/[facility] LABORATORY Specimen Blood Resulting Agency Comment Spec In Lab Performing Organization Address City/[facility]/Zipcode Phone Number [address] LABORATORY BMP w/fasting Glucose (03/12/2020 12:45 AM EDT) Glucose Fasting 181 (H) 65 - 99 [facility] Comment: mg/dL [facility] ?Fasting* Glucose Interpretive Criteria LABORATORY Normal ?65-99 mg/dL Impaired Fasting glucose ?100-12 5 mg/dL Consistent with Diabetes Mellitus ? >or= 126 mg/ dL *Fasting is defined as no caloric intake for at least 8 hours In the absence of unequivocal hyperglycemia a plasma glucose value of >or= 126 mg/dL should be repeated on a subsequent day. Diagnosis and Classification of Diabetes Mellitus, Position Statement from the [place] [employer]. ??Diabetes Care, Volume 33, Supplement 1, Sep 2009 BUN 19 10 - 20 [facility] mg/dL [facility] Creatinine 0.74 (L) 0.80 - 1.50 [facility] Sodium 132 (L) 135 - 145 [facility] mmol/L [facility] Potassium 4.6 3.5 - 5.0 [facility] Comment: mmol/L [facility] Please note: ??Patients with WBC >100,000 may welch ve falsely elevated Potassium LABORATORY levels. ??For accurate Potassium quantification in the se patients send serum separator tube (gold top) fo r subsequent determinations. ??Contact the Clinical Chemistry Laboratory if there are any questions. Chloride 96 (L) 98 - 107 [facility] mmol/L [facility] CO2 23 22 - 31 [facility] mmol/L [facility] Anion Gap 13 5 - 15 [facility] mmol/L [facility] Calcium 8.7 8.5 - 10.5 [facility] mg/dL [facility] Estimated GFR 97 >=60 [facility] Comment: mL/min/1.73 [facility] The eGFR was calculated using the CKD-EPI equati on. As with all creatinine m?? LABORATORY based estimates of kidney function, eGFR values calcul ated with the CKD-EPI equation are not accurate in patients with acute kidne y failure, extremes of body mass or the acutely ill. http://Infinio/DHMCnkf eGFR 113 >=60 [facility] French Comment: mL/min/1.73 [facility] The eGFR was calculated using the CKD-EPI equati on. As with all creatinine m?? LABORATORY based estimates of kidney function, eGFR values calcul ated with the CKD-EPI equation are not accurate in patients with acute kidne y failure, extremes of body mass or the acutely ill. http://Infinio/DHMCnkf Specimen Blood Resulting Agency Comment Spec In Lab Performing Organization Address [facility] Cent[facility]ode Phone Number [address] LABORATORY Urinalysis Microscopic Exam (03/12/2020 12:30 AM EDT) Pathologist Sig nature RBC UA 4 (H) 0 - 3 /HPF [facility] WBC UA 1 0 - 3 /HPF [facility] Specimen Indwelling Catheter Urine Resulting Agency Comment Spec In Lab Performing Organization Address [facility] Phone Number [address] LABORATORY Urinalysis with reflex Culture (03/12/2020 12:30 AM EDT) Glucose UA Negative Negative mg/dL [facility] Protein UA Negative Negative mg/dL [facility] Bilirubin UA Negative Negative mg/dL [facility] Comment: [facility] Clinical correlation required for positive Urine Bilirubin results as false LABORATORY positive may occur with some drugs and drug related pr oducts. If a false positive is suspected a serum total bilirubin should b e considered if clinically indicated. Urobilinogen UA Normal Normal mg/dL [facility] pH UA 7.0 5.0 - 8.0 [facility] Blood UA Trace (A) Negative mg/dL [facility] Ketones UA Negative Negative mg/dL [facility] Nitrite UA Negative Negative [facility] Leukocytes UA Negative Negative [facility] LABORATORY Appearance UA Clear Clear [facility] Spec Parnell UA 1.007 1.006 - 1.030 [facility] Color UA Yellow Yellow [facility] Culture Reflexed No [facility] Specimen Indwelling Catheter Urine Resulting Agency Comment Spec In Lab Performing Organization Address [facility] Cent[facility]ode Phone Number [address] LABORATORY POCT Glucose (03/12/2020 12:13 AM EDT) POC Glucose 179 65 - 199 mg/dL [facility] Comment: [facility] Supplemental ranges: LABORATORY <140 mg/dL before meals <180 mg/dL all other times of the day Specimen Blood Performing Organization Address City/[facility] Centercode Phone Number [place] [phone] HOSPITAL LABORATORY Blood culture (03/11/2020 11:50 PM EDT) Pathologist Sig nature Blood Culture No growth at 5 [facility]. [facility]ORY Specimen Blood Resulting Agency Comment Spec In Lab Performing Organization Address [facility] Centercode Phone Number [place] [phone] H[facility]PITAL LABORATORY Blood culture (03/11/2020 11:50 PM EDT) Pathologist Sig nature Blood Culture No growth at 5 [facility] Specimen Blood Resulting Agency Comment Spec In Lab Performing Organization Address [facility] Phone Number [place] [phone] HOSPITAL LABORATORY XR Chest One View (03/11/2020 11:43 PM EDT) Specimen Impressions Performed At No significant interval change in the mu ltifocal pulmonary opacities. AMARJIT Thank you for letting us participate in the care of th is patient. For questions regarding this report, please contact the number below . ? Narrative Performed At EXAMINATION: XR CHEST ONE VIEW [facility] CLINICAL HISTORY: Worsening SOB in the setting of PJP, concern for superimposed bacterial pneumonia vs fluid overload TECHNIQUE: 1 view of the chest COMPARISON: Chest radiograph from March 10, 2020 FINDINGS: The endotracheal and enteric tube have b een removed. Low lung volumes with unchanged mild elevation of the right hemidiaphragm relative to the left. There is been no i nterval change in the diffuse interstitial opacities with superimposed patchy airspa ce opacities in the perihilar region, right upper lobe and most confluent in the retrocardiac region. No large effusion. No pneumothor ax. Stable cardiac silhouette. Procedure Note Department, Radiology - 03/12/2020 3:10 AM EDT EXAMINATION: XR CHEST ONE VIEW CLINICAL HISTORY: Worsening SOB in the s etting of PJP, concern for superimposed bacterial pneumonia vs fluid overload TECHNIQUE: 1 view of the chest COMPARISON: Chest radiograph from March 10, 2020 FINDINGS: The endotracheal and enteric tube have b een removed. Low lung volumes with unchanged mild julius vation of the right hemidiaphragm relative to the left. There is been no i nterval change in the diffuse interstitial opacities with superimposed patchy airspace opacities in the perihilar region, right upper lobe and m ost confluent in the retrocardiac region. No large effusion. No pneumothor ax. Stable cardiac silhouette. IMPRESSION No significant interval change in the mu ltifocal pulmonary opacities. Thank you for letting us participate in the care of this patient. For questions regarding this report, please contact e number below. Performing Organization Address City/[facility]/Zipcode Phone Number [place], [place] POCT Glucose (03/11/2020 8:57 PM EDT) POC Glucose 176 65 - 199 mg/dL [facility] Comment: [facility] Supplemental ranges: LABORATORY <140 mg/dL before meals <180 mg/dL all other times of the day Specimen Blood Performing Organization Address City/[facility]/Zipcode Phone Number [place], [place] [phone] HOSPITAL LABORATORY POCT Glucose (03/11/2020 4:08 PM EDT) POC Glucose 186 65 - 199 mg/dL [facility] Comment: [facility] Supplemental ranges: LABORATORY <140 mg/dL before meals <180 mg/dL all other times of the day Specimen Blood Performing Organization Address City/State/Zipcode Phone Number [address] LABORATORY POCT Glucose (03/11/2020 12:18 PM EDT) POC Glucose 180 65 - 199 mg/dL [facility] Comment: [facility] Supplemental ranges: LABORATORY <140 mg/dL before meals <180 mg/dL all other times of the day Specimen Blood Performing Organization Address City/[facility] [facility]/Zipcode Phone Number [address] LABORATORY POCT Glucose (03/11/2020 7:51 AM EDT) POC Glucose 213 (H) 65 - 199 mg/dL MENG ROMEO Comment: [facility] Supplemental ranges: LABORATORY <140 mg/dL before meals <180 mg/dL all other times of the day Specimen Blood Performing Organization Address City/[facility] Phone Number [address] LABORATORY POCT Glucose (03/11/2020 6:25 AM EDT) POC Glucose 251 (H) 65 - 199 mg/dL MENG ROMOE Comment: [facility] Supplemental ranges: LABORATORY <140 mg/dL before meals <180 mg/dL all other times of the day Specimen Blood Performing Organization Address City/[facility]/Zipcode Phone Number [address] LABORATORY POCT Glucose (03/11/2020 4:26 AM EDT) POC Glucose 313 (H) 65 - 199 mg/dL MENG ROMEO Comment: [facility] Supplemental ranges: LABORATORY <140 mg/dL before meals <180 mg/dL all other times of the day Specimen Blood Performing Organization Address City/State/Zipcode Phone Number [address] LABORATORY POCT Glucose (03/11/2020 12:55 AM EDT) POC Glucose 226 (H) 65 - 199 mg/dL [facility] Comment: [facility] Supplemental ranges: LABORATORY <140 mg/dL before meals <180 mg/dL all other times of the day Specimen Blood Performing Organization Address City/[facility] Phone Number [address] LABORATORY Differential, Automated (03/11/2020 12:50 AM EDT) [facility] Neutrophils % 91.4 % [facility] LABORATORY Neutr Abs (ANC) 9.29 (H) 1.70 - 6.10 [facility] x10(3)/[facility] LABORATORY Lymphocytes % 3.3 % [facility] LABORATORY Lymphocytes Abs 0.3 (L) 0.9 - 3.2 [facility] x10(3)/[facility] LABORATORY Monocytes % 2.3 % [facility] LABORATORY Monocyte Abs 0.2 (L) 0.3 - 0.9 [facility] x10(3)/[facility] LABORATORY Eosinophils % 0.0 % [facility] LABORATORY Eosinophils Abs 0.0 0.0 - 0.4 [facility] x10(3)/[facility] LABORATORY Basophils % 0.2 % [facility] LABORATORY Basophils Abs 0.0 0.0 - 0.1 [facility] x10(3)/[facility] LABORATORY Immature Gran % 2.80 % [facility] Comment: [facility] Immature granulocytes(IG's)percentage and absolu te count will include LABORATORY metamyelocytes, myelocytes, and promyelo cytes. Blood smears from CBCs yielding IG's will be scanned manually for concor dance. If this scan disagrees with the automated IG or if promyelocytes are noted, a manual d ifferential will be performed. Jessica Gran Abs 0.28 (H) 0.00 - 0.04 [facility] x10(3)/[facility] LABORATORY Specimen Blood Resulting Agency Comment Spec In Lab Performing Organization Address City/[facility] Phone Number [address] LABORATORY Hemogram (03/11/2020 12:50 AM EDT) Pathologist Sig nature WBC 10.2 (H) 4.0 - 9.5 [facility] x10(3)/[facility] LABORATORY RBC 3.20 (L) 4.58 - 5.54 [facility] x10(6)/[facility] LABORATORY Hemoglobin 10.1 (L) 13.7 - 16.5 gm/dL [facility] Hematocrit 29.9 (L) 40.5 - 48.5 % [facility] LABORATORY MCV 93.4 (H) 82.9 - 93.1 fL [facility] LABORATORY MCH 31.6 27.5 - 32.1 pg [facility] MCHC 33.8 32.0 - 35.7 gm/dL [facility] Platelets 278 145 - 357 [facility] x10(3)/[facility] LABORATORY RDWSD 55.6 (H) 36.0 - 45.0 fL [facility] LABORATORY RDWCV 16.4 (H) 11.4 - 13.8 % [facility] LABORATORY MPV 9.0 7.6 - 12.9 fL [facility] LABORATORY nRBC % Auto 0.8 % [facility] LABORATORY nRBC Abs Auto 0.080 (H) 0.000 - 0.000 [facility] x10(3)/[facility] LABORATORY Specimen Blood Resulting Agency Comment Spec In Lab Performing Organization Address City/State/Zipcode Phone Number [place] [phone] [facility] LABORATORY BMP w/fasting Glucose (03/11/2020 12:50 AM EDT) Glucose Fasting 224 (H) 65 - 99 [facility] Comment: mg/dL [facility] ?Fasting* Glucose Interpretive Criteria LABORATORY Normal ?65-99 mg/dL Impaired Fasting glucose ?100-12 5 mg/dL Consistent with Diabetes Mellitus ? >or= 126 mg/ dL *Fasting is defined as no caloric intake for at least 8 hours In the absence of unequivocal hyperglycemia a plasma glucose value of >or= 126 mg/dL should be repeated on a subsequent day. Diagnosis and Classification of Diabetes Mellitus, Position Statement from the [place] [employer]. ??Diabetes Care, Volume 33, Supplement 1, Sep 2009 BUN 27 (H) 10 - 20 [facility] [place] mg/dL [facility] LABORATORY Creatinine 0.79 (L) 0.80 - 1.50 MENG [place] mg/dL [facility] LABORATORY Sodium 136 135 - 145 [facility] mmol/L [facility] LABORATORY Potassium 4.7 3.5 - 5.0 [facility] Comment: mmol/L [facility] Please note: ??Patients with WBC >100,000 may welch ve falsely elevated Potassium LABORATORY levels. ??For accurate Potassium quantification in the se patients send serum separator tube (gold top) fo r subsequent determinations. ??Contact the Clinical Chemistry Laboratory if there are any questions. Chloride 100 98 - 107 [facility] mmol/L [facility] LABORATORY CO2 21 (L) 22 - 31 [facility] [place] mmol/L [facility] LABORATORY Anion Gap 15 5 - 15 [facility] mmol/L [facility] LABORATORY Calcium 9.2 8.5 - 10.5 [facility] [place] mg/dL [facility] LABORATORY Estimated GFR 95 >=60 [facility] Comment: mL/min/1.73 [facility] The eGFR was calculated using the CKD-EPI equati on. As with all creatinine m?? LABORATORY based estimates of kidney function, eGFR values calcul ated with the CKD-EPI equation are not accurate in patients with acute kidne y failure, extremes of body mass or the acutely ill. http://Infinio/Intralignnkf eGFR 110 >=60 [facility] French Comment: mL/min/1.73 [facility] The eGFR was calculated using the CKD-EPI equati on. As with all creatinine m?? LABORATORY based estimates of kidney function, eGFR values calcul ated with the CKD-EPI equation are not accurate in patients with acute kidne y failure, extremes of body mass or the acutely ill. http://Infinio/[facility] GROVEnkf Specimen Blood Resulting Agency Comment Spec In Lab Performing Organization Address City/State/Zipcode Phone Number [address] LABORATORY POCT Glucose (03/10/2020 8:19 PM EDT) POC Glucose 158 65 - 199 mg/dL MENG ROMEO Comment: [facility] Supplemental ranges: LABORATORY <140 mg/dL before meals <180 mg/dL all other times of the day Specimen Blood Performing Organization Address [facility] Centercode Phone Number [address] LABORATORY Gold Tube HOLD (03/10/2020 4:15 PM EDT) Pathologist Sig nature Gold Hold Sample in lab. [facility] LABORATORY Specimen Blood Performing Organization Address [facility] Phone Number [address] LABORATORY Potassium (03/10/2020 4:15 PM EDT) Potassium 4.2 3.5 - 5.0 MENG ROMEO Comment: mmol/L [facility] Please note: ??Patients with WBC >100,000 may welch ve falsely elevated Potassium LABORATORY levels. ??For accurate Potassium quantification in the patients send serum separator tube (gold top) fo r subsequent determinations. ??Contact the Clinical Chemistry Laboratory if there are any questions. Specimen Blood Resulting Agency Comment Spec In Lab Performing Organization Address [facility] Phone Number [address] LABORATORY POCT Glucose (03/10/2020 4:01 PM EDT) POC Glucose 198 65 - 199 mg/dL MENG ROMEO Comment: [facility] Supplemental ranges: LABORATORY <140 mg/dL before meals <180 mg/dL all other times of the day Specimen Blood Performing Organization Address City/[facility]/Zipcode Phone Number [address] LABORATORY POCT Glucose (03/10/2020 11:58 AM EDT) POC Glucose 194 65 - 199 mg/dL MENG ROMEO Comment: [facility] Supplemental ranges: LABORATORY <140 mg/dL before meals <180 mg/dL all other times of the day Specimen Blood Performing Organization Address City/[facility] Phone Number [address] LABORATORY POCT Glucose (03/10/2020 7:42 AM EDT) POC Glucose 243 (H) 65 - 199 mg/dL MENG ROMEO Comment: [facility] Supplemental ranges: LABORATORY <140 mg/dL before meals <180 mg/dL all other times of the day Specimen Blood Performing Organization Address [facility] Phone Number [address] LABORATORY POCT Glucose (03/10/2020 4:04 AM EDT) POC Glucose 239 (H) 65 - 199 mg/dL MENG COXAGUEDA Comment: [facility] Supplemental ranges: LABORATORY <140 mg/dL before meals <180 mg/dL all other times of the day Specimen Blood Performing Organization Address [facility] Phone Number [address] LABORATORY XR Chest One View (03/10/2020 4:03 AM EDT) Specimen Impressions Performed At Grossly unchanged multifocal pulmonary o pacities that may represent any DH RAD combination of pulmonary edema, ARDS, and/or atypical/ multifocal pneumonia. I have personally reviewed the image(s) and the reside nt's interpretation and agree with the findings, Yanet Connell at 03/10/2020 4:25 AM Thank you for letting us participate in the care of th is patient. For questions regarding this report, please contact the number below . ? Narrative Performed At EXAMINATION: XR CHEST ONE VIEW DH RAD CLINICAL HISTORY: Increasing O2 requirem ent TECHNIQUE: 1 view of the chest COMPARISON: Chest radiograph 03/08/2020. CTA chest 03/07/2020 FINDINGS: ET tube tip is 4.2 cm above the yaima. Enteric tube c ourses inferiorly below the diaphragm, with sidehole visualized in the proxima l stomach and tip out of the field of view. Low lung volumes. Hazy perihilar and peripheral inters titial and patchy airspace opacities are again seen, slightly more confluent on t he left. Cardiophrenic and retrocardiac opacities are also noted that may represe nt atelectasis. There is no pneumothorax or pleural effusion. Car diac silhouette is stable. Procedure Note Department, Radiology - 03/10/2020 4:30 AM EDT EXAMINATION: XR CHEST ONE VIEW CLINICAL HISTORY: Increasing O2 requirem ent TECHNIQUE: 1 view of the chest COMPARISON: Chest radiograph 03/08/2020. CTA chest 03/07/2020 FINDINGS: ET tube tip is 4.2 cm above the yaima. Enteric tube courses inferiorly below the diaphragm, with sidehole visualized in the proximal stomach and tip out of the field of view. Low lung volumes. Hazy perihilar and per ipheral interstitial and patchy airspace opacities are again seen, slightly more confluent on the left. Cardiophrenic and retrocardiac opacities are also noted th at may represent atelectasis. There is no pneumothorax or pleural effusion. Car diac silhouette is stable. IMPRESSION Grossly unchanged multifocal pulmonary o pacities that may represent any combination of pulmonary edema, ARDS, an d/or atypical/multifocal pneumonia. I have personally reviewed the image(s) and the resident's interpretation and agree with the findings, Yanet Connell at 03/10/2020 4:25 AM Thank you for letting us participate in the care of this patient. For questions regarding this report, please contact e number below. Performing Organization Address City/State/Zipcode Phone Number [place], [place] XR Abdomen 1 view (Generic) (03/10/2020 1:28 AM EDT) Specimen Impressions Performed At OG tube terminates within the stomach, with sidehole p ast the [facility] RAD junction. Thank you for letting us participate in the care of th is patient. For questions regarding this report, please contact the number below . ? Narrative Performed At EXAMINATION: XR ABDOMEN 1 VIEW (GENERIC) [facility] CLINICAL HISTORY: Confirm OG placement a fter advancement TECHNIQUE: AP abdomen COMPARISON: Abdomen radiograph from March 09, [address] from March 07, 2020 FINDINGS: OG tube extends along the course of the esophagus with sidehole just past the GE junction and tip in the proximal stomach . Normal bowel gas pattern of the visualized abdomen. Ch anges of emphysema with perihilar interstitial and airspace opacities, similar to recent chest CT Procedure Note Department, Radiology - 03/10/2020 1:45 AM EDT EXAMINATION: XR ABDOMEN 1 VIEW (GENERIC) CLINICAL HISTORY: Confirm OG placement a fter advancement TECHNIQUE: AP abdomen COMPARISON: Abdomen radiograph from March 09, [address] from March 07, 2020 FINDINGS: OG tube extends along the course of the esophagus with sidehole just past the GE junction and tip in the proximal stomach . Normal bowel gas pattern of the visualiz ed abdomen. Changes of emphysema with perihilar interstitial and airspace opac ities, similar to recent chest CT IMPRESSION OG tube terminates within the stomach, w ith sidehole past the GE junction. Thank you for letting us participate in the care of this patient. For questions regarding this report, please contact e number below. Performing Organization Address City/State/Zipcode Phone Number [place], [place] Differential, Automated (03/10/2020 12:45 AM EDT) Neutrophils % 92.5 % [facility] LABORATORY Neutr Abs (ANC) 9.49 (H) 1.70 - 6.10 [facility] x10(3)/[facility] LABORATORY Lymphocytes % 3.8 % [facility] LABORATORY Lymphocytes Abs 0.4 (L) 0.9 - 3.2 [facility] x10(3)/[facility] LABORATORY Monocytes % 2.6 % [facility] LABORATORY Monocyte Abs 0.3 0.3 - 0.9 [facility] x10(3)/[facility] LABORATORY Eosinophils % 0.0 % [facility] LABORATORY Eosinophils Abs 0.0 0.0 - 0.4 [facility] x10(3)/[facility] LABORATORY Basophils % 0.1 % [facility] LABORATORY Basophils Abs 0.0 0.0 - 0.1 [facility] x10(3)/[facility] LABORATORY Immature Gran % 1.00 % [facility] Comment: [facility] Immature granulocytes(IG's)percentage and absolu te count will include LABORATORY metamyelocytes, myelocytes, and promyelo cytes. Blood smears from CBCs yielding IG's will be scanned manually for concor dance. If this scan disagrees with the automated IG or if promyelocytes are noted, a manual d ifferential will be performed. Jessica Gran Abs 0.10 (H) 0.00 - 0.04 [place] [id number])/[facility] LABORATORY Specimen Blood Resulting Agency Comment Spec In Lab Performing Organization Address City/State/Zipcode Phone Number [address] LABORATORY Hemogram (03/10/2020 12:45 AM EDT) Pathologist Sig nature WBC 10.3 (H) 4.0 - 9.5 [facility] x10(3)/[facility] LABORATORY RBC 3.04 (L) 4.58 - 5.54 [facility] x10(6)/[facility] LABORATORY Hemoglobin 9.7 (L) 13.7 - 16.5 gm/dL [facility] LABORATORY Hematocrit 28.6 (L) 40.5 - 48.5 % [facility] LABORATORY MCV 94.1 (H) 82.9 - 93.1 fL [facility] LABORATORY MCH 31.9 27.5 - 32.1 pg [facility] LABORATORY MCHC 33.9 32.0 - 35.7 gm/dL [facility] LABORATORY Platelets 256 145 - 357 [facility] x10(3)/[facility] LABORATORY RDWSD 55.8 (H) 36.0 - 45.0 fL [facility] LABORATORY RDWCV 16.4 (H) 11.4 - 13.8 % [facility] LABORATORY MPV 9.1 7.6 - 12.9 fL [facility] LABORATORY nRBC % Auto 0.0 % [facility] LABORATORY nRBC Abs Auto 0.000 0.000 - 0.000 [facility] x10(3)/[facility] LABORATORY Specimen Blood Resulting Agency Comment Spec In Lab Performing Organization Address City/State/Zipcode Phone Number [address] LABORATORY Basic Metabolic Panel (non-fasting) (03/10/2020 12:45 AM EDT) Glucose Lvl 199Comment: Diabetes: 65 - 199 [facility] >=200 mg/dL plus mg/dL [facility] symptoms LABORATORY BUN 22 (H) 10 - 20 [facility] LABORATORY Creatinine 0.71 (L) 0.80 - 1.50 [facility] mg/dL [facility] LABORATORY Sodium 139 135 - 145 [facility] mmol/L [facility] LABORATORY Potassium 3.8 3.5 - 5.0 [facility] Comment: mmol/L [facility] Please note: ??Patients with WBC >100,000 may welch ve falsely elevated Potassium LABORATORY levels. ??For accurate Potassium quantification in the se patients send serum separator tube (gold top) fo r subsequent determinations. ??Contact the Clinical Chemistry Laboratory if there are any questions. Chloride 103 98 - 107 [facility] mmol/L [facility] LABORATORY CO2 23 22 - 31 [facility] mmol/L [facility] LABORATORY Anion Gap 13 5 - 15 [facility] mmol/L [facility] LABORATORY Calcium 9.2 8.5 - 10.5 [facility] mg/dL [facility] LABORATORY Estimated GFR 99 >=60 MENG ROMEO Comment: mL/min/1.73 [facility] The eGFR was calculated using the CKD-EPI equati on. As with all creatinine m?? LABORATORY based estimates of kidney function, eGFR values calcul ated with the CKD-EPI equation are not accurate in patients with acute kidne y failure, extremes of body mass or the acutely ill. http://Infinio/[facility] UPMCCymbet eGFR 115 >=60 MENG MANRIQUEZCK French Comment: mL/min/1.73 [facility] The eGFR was calculated using the CKD-EPI equati on. As with all creatinine m?? LABORATORY based estimates of kidney function, eGFR values calcul ated with the CKD-EPI equation are not accurate in patients with acute kidne y failure, extremes of body mass or the acutely ill. http://Infinio/[facility] GROVEnk Specimen Blood Resulting Agency Comment Spec In Lab Performing Organization Address City/State/Zipcode Phone Number [address] LABORATORY POCT Glucose (03/10/2020 12:13 AM EDT) POC Glucose 202 (H) 65 - 199 mg/dL MENG ROMEO Comment: [facility] Supplemental ranges: LABORATORY <140 mg/dL before meals <180 mg/dL all other times of the day Specimen Blood Performing Organization Address City/[facility] Phone Number [address] LABORATORY XR Abdomen 1 view (Generic) (03/09/2020 9:40 PM EDT) Specimen Impressions Performed At OG tube tip in the proximal stomach with sidehole at t he distal DH RAD esophagus. Thank you for letting us participate in the care of th is patient. For questions regarding this report, please contact the number below . ? Narrative Performed At EXAMINATION: XR ABDOMEN 1 VIEW (GENERIC) [facility] CLINICAL HISTORY: Confirm OG tube placem ent. TECHNIQUE: AP abdomen COMPARISON: Abdomen and pelvis CT from February 18, 2020 FINDINGS: An OG tube is in place with sidehole at the distal eso phagus and tip at the proximal stomach. Normal bowel gas pattern of the visualiz ed abdomen. Procedure Note Department, Radiology - 03/09/2020 9:48 PM EDT EXAMINATION: XR ABDOMEN 1 VIEW (GENERIC) CLINICAL HISTORY: Confirm OG tube placem ent. TECHNIQUE: AP abdomen COMPARISON: Abdomen and pelvis CT from February 18, 2020 FINDINGS: An OG tube is in place with sidehole at the distal esophagus and tip at the proximal stomach. Normal bowel gas pattern of the visualiz ed abdomen. IMPRESSION OG tube tip in the proximal stomach with sidehole at the distal esophagus. Thank you for letting us participate in the care of this patient. For questions regarding this report, please contact e number below. Performing Organization Address City/[facility] Cent[facility] Phone Number [place], [place] POCT Glucose (03/09/2020 7:50 PM EDT) POC Glucose 250 (H) 65 - 199 mg/dL MENG ROMEO Comment: [facility] Supplemental ranges: LABORATORY <140 mg/dL before meals <180 mg/dL all other times of the day Specimen Blood Performing Organization Address City/State/Zipcode Phone Number MENG ROMEO [address] LABORATORY POCT Glucose (03/09/2020 5:56 PM EDT) POC Glucose 222 (H) 65 - 199 mg/dL MENG ROMEO Comment: [facility] Supplemental ranges: LABORATORY <140 mg/dL before meals <180 mg/dL all other times of the day Specimen Blood Performing Organization Address City/[facility]/Zipcode Phone Number MENG ROMEO [address] LABORATORY POCT Glucose (03/09/2020 3:53 PM EDT) POC Glucose 241 (H) 65 - 199 mg/dL MENG ROMEO Comment: [facility] Supplemental ranges: LABORATORY <140 mg/dL before meals <180 mg/dL all other times of the day Specimen Blood Performing Organization Address City/[facility] Cent[facility]ode Phone Number MENG MANRIQUEZ[address] LABORATORY COVID-19 PCR (03/09/2020 12:49 PM EDT) SARS-CoV-2 RNA Not Detected Not Detected MENG ROMEO Comment: [facility] This result should be interpreted in combination with the clinical LABORATORY observations, patient history and epidemiologica l information. For testing of asymptomatic individuals, assay performance characteri stics and clinical utility have not been evaluated. Testing for SARS-CoV- 2 (Severe acute respiratory syndrome coronav irus 2, formerly known as 2019 novel coronavirus or 2019-nCoV) to aid in the diagnosis of COVID-19 is perf ormed using the [employer] RealTime SARS-CoV-2 as autho rized by the FDA Emergency Use Authorization (EUA). This EUA assay is intended for In-vitro Diagnost ic (IVD) use with respiratory specimens such as nasopharyngeal swabs collected from individuals during the acute phase of infection. Th is assay is performed based on the instructions for use provided by the [employer] and additional gu idance provided by CDC and FDA. Testing is performed in the [facility] within the Department of Pathology and Labo [facility] Medicine at [facility], certified under th e Clinical Laboratory Improvement Amendments of 1988 (CLIA), 4 2 U.S.C. section 263a, to perform high complexity tests. Assay performance has been verified according to clinical laboratory regulatory requirements. Test results are provided above. A resul t of Not Detected indicates that the viral RNA target is not present but does not preclude SARS-CoV-2 infection. False negative results may occur if a specimen is impr operly collected, transported or handled; if amplification inhibitors ar e present; or if inadequate numbers of viral particles ar e present in the specimen. A result of Detected suggests a current or recent infectio n and the patient is presumed to be infected. As required or requested by public health authorities, positive specimens may be sent for additional alen ting. Positive and negative predictive values for this test are highly dependent on disease p revalence. A result of Invalid indicates that nei ther the viral RNA targets nor the internal control target was detected. An invalid result suggests the pr esence of inhibitors. Recollection is recommended in the case of an invalid result. CDC COVID-19 criteria for testing on human specimens a nd clinical management guidance information are available at the CDC Coronavi marlin Disease 2019 (COVID-19) webpage under Information for Healthcare P rofessionals (https://www.cdc.gov/coronavirus/2019-ncov/hcp/index.h tml) Additional information about this and ot her EUA tests can be found in provider and patient fact sheets at the following FDA website: https://www.fda.gov/medical-devices/xcgclhnwr-korjscsopq-szohpeq-devices/emergen cg-zgy-gwrtyyzlrsjlzs#kauba27akb SARS-Cov-2 RNA Other [facility] LABORATORY Specimen Other Resulting Agency Comment Spec In Lab Performing Organization Address City/[facility]/Zipcode Phone Number [address] LABORATORY Calcofluor White Stain (03/09/2020 12:49 PM EDT) Calcofluor Stain Calcofluor White [facility] Negative LABORATORY Specimen Bronchial Alveolar Lavage Resulting Agency Comment Spec In Lab Performing Organization Address City/[facility]/Zipcode Phone Number [address] LABORATORY Fungus culture (03/09/2020 12:49 PM EDT) Pathologist Sig nature Fungus Culture No Fungus isolated [facility] LABORATORY Specimen Bronchial Alveolar Lavage Resulting Agency Comment Spec In Lab Performing Organization Address [facility]/Zipcode Phone Number [address] LABORATORY AFB culture Bronchial Alveolar Lavage (03/09/2020 12:49 PM EDT) Acid Fast Bacilli No Acid Fast Bacilli isolated [facility] Culture If active tuberculosis is suspected, the patient should be on [employer] [facility] PRECAUTIONS. LABORATORY Call Infection Prevention for assistance if needed. Acid Fast Stain No Acid Fast Bacilli MENG ROMEO [facility] LABORATORY Specimen Bronchial Alveolar Lavage Resulting Agency Comment Spec In Lab Performing Organization Address City/[facility]/Zipcode Phone Number [address] LABORATORY Cystic Fibrosis Respiratory Culture Cystic Fibrosis Bronchoalveolar Lavage (03/09/2020 12:49 PM EDT) Pathologist Sig nature Cystic Fibrosis No growth [facility] Respiratory Culture [facility] LABORATORY Specimen Cystic Fibrosis Bronchoalveolar Lavage Resulting Agency Comment Spec In Lab Performing Organization Address City/[facility]/Zipcode Phone Number [address] LABORATORY Pneumocystis Carinii Stain Bronchial Alveolar Lavage (03/09/2020 12:49 PM EDT) Pneumocystis Carinii Fluorescent stain positive f or: Pneumocystis jiroveci (carinii) [facility] Stain Results called to and read back by DR. MEZA. [facility] (A) LABORATORY Organism Pneumocystis [facility] jivec (carinii) [facility] (A) LABORATORY Specimen Bronchial Alveolar Lavage Resulting Agency Comment Spec In Lab Performing Organization Address City/[facility] Phone Number [address] LABORATORY Non-Pearler Final Report (03/09/2020 12:30 PM EDT) Non-Pearler Final [id number] ? Location: [facility]; [facility]; [facility] The signing pathologist has (i) examined the rel evant preparation(s) for the LABORATORY specimen(s) and (ii) rendered or confirmed the diagnos is(es). . ? Non-Pearler Final DIAGNOSIS Negative for Malignancy Electronically signed by: ??Damon Garrison MD Verified: ??03/13/2020 ?Cytopathologist Performed at: ??-[facility] Dept. of Pathology, [place], [place] DISCUSSION Bronchial alveolar lavage: Organisms com patible with Pneumocystis are present. Respiratory epithelial cell s (some reactive-appearing), macrophages, neutrophils, and lymphocytes also evident. special stain (performed on a liquid-based preparation) - GMS (silver): The above- mentioned organisms are highlighted by the stain. Dr. Guille Roblero (microbiology) has reviewed the case and concurs with the diagnosis. (Cell block was examined.) CLINICAL INFORMATION Specimen Source : Bronchial alveolar lavage Pertinent Clinical Data and Significant Therapy: Concern for PJP PNA Clinical Impression : Hypoxemia on immunosuppression Pertinent Radiologic Findings ??: (not provided) Gross Description: Received ??fresh, approximat federico 12 mL total volume of ?? cloudy, colorless fluid, with light flecks. Total Preparation: Liquid-Based Prep 2; Cell Block 1. Specimen Performing Organization Address City/State/Zipcode Phone Number [place], [place] [address] [facility] LABORATORY Fluid Review Report (03/09/2020 12:30 PM EDT) Fluid Review [id number] ? Location: [facility]; [facility] The signing pathologist has (i) examined the rel evant preparation(s) for the LABORATORY specimen(s) and (ii) rendered or confirmed the diagnos is(es). . ? Fluid Review DIAGNOSIS Atypical clusters of cells seen. Electronically signed by: ??Dom Hicks MD Verified: ??03/09/2020 ?Hematopathologist Performed at: ??-[facility] Dept. of Pathology, [place], [place] DISCUSSION These may represent atypical respiratory epithelial cells. malignancy cannot be excluded based on this analysis. Also see cytology report [id number]. ADDITIONAL STUDIES This study is optimal for ev aluation of abnormal lymphocytic infiltrates and blasts in fluid specimens. For met astatic nonlymphoid malignancies like carcinomas, subtle involvement, ??especially c ases with unknown primary disease, ??the specimens are optimally reviewed by cytol ogy evaluation where further work-up with immunostains can be performed for a more definitive diagnosis. CLINICAL INFORMATION Specimen: ? BAL Clinical Diagnosis: ? BFCT Indication for Study: ?? BFCT Specimen Performing Organization Address City/[facility]/Zipcode Phone Number [place] [phone] [address] [facility] LABORATORY DIFFERENTIAL BODY FLUID, MANUAL (03/09/2020 12:30 PM EDT) Polymorph % Man 44 % MENG AGUEDA Comment: [facility] Polymorphonuclear cell percent and absolute valu es may contain Neutrophils, LABORATORY Eosinophils, and Basophils. Body fluid smear will be s canned manually for concordance. Mononuc % Man 56 % [facility] Comment: [facility] Mononuclear cell percent and absolute values may contain Lymphocytes and LABORATORY Monocytes. Body fluid smear will be scanned manually f or concordance. Polymorph ABS 35 /mcl [facility] Man Comment: [facility] Polymorphonuclear cell percent and absolute valu es may contain Neutrophils, LABORATORY Eosinophils, and Basophils. Body fluid smear will be s canned manually for concordance. Mononuc ABS Man 44 /[facility] Comment: [facility] Mononuclear cell percent and absolute values may contain Lymphocytes and LABORATORY Monocytes. Body fluid smear will be scanned manually f or concordance. Tot Diff Ct BF 200 Cells [facility] LABORATORY Specimen Bronchial Alveolar Lavage Resulting Agency Comment Spec In Lab Performing Organization Address City/[facility]/Zipcode Phone Number [place] [phone] [facility] LABORATORY Cell Count Body Fluid Bronchial Alveolar Lavage; additional orders entered (03/09/2020 12:30 PM EDT) Spec Type BF BAL [facility] LABORATORY Color BF Colorless [facility] LABORATORY Appearance BF Hazy [facility] LABORATORY WBC BF Ct 79 /[facility] Comment: [facility] Body Fluid was manually performed due to quality of specimen. The reported WBC LABORATORY value may include mesothelial cells-lining cells. Guideline listed below apply to all body fluids. Differentials on BAL specimens are performed by the tology lab section. When Body Fluid WBC count is greater than Zero, a smea r is made and scanned. All scan information is brendon elated with numeric results prior to being released to patients chart. The reference interval(s) and other meth od performance specifications have not been established for this body fluid. The test r esult must be integrated into the clinical context for interpretation. Specimen Bronchial Alveolar Lavage Resulting Agency Comment Spec In Lab Performing Organization Address City/[facility] Phone Number [address] LABORATORY POCT Glucose (03/09/2020 12:23 PM EDT) POC Glucose 205 (H) 65 - 199 mg/dL [facility] Comment: [facility] Supplemental ranges: LABORATORY <140 mg/dL before meals <180 mg/dL all other times of the day Specimen Blood Performing Organization Address City/[facility] Phone Number [address] LABORATORY Cytopathology Non-Gynecological (03/09/2020 12:17 PM EDT) Specimen AP Specimen Narrative Performed At Specimen requisition ordered. ??Separate [facility] Pathology report to follow LABORATORY Performing Organization Address [facility] Phone Number [address] LABORATORY POCT Glucose (03/09/2020 10:02 AM EDT) POC Glucose 228 (H) 65 - 199 mg/dL MENG ROMEO Comment: [facility] Supplemental ranges: LABORATORY <140 mg/dL before meals <180 mg/dL all other times of the day Specimen Blood Performing Organization Address City/[facility] Phone Number [address] LABORATORY POCT Glucose (03/09/2020 8:18 AM EDT) POC Glucose 282 (H) 65 - 199 mg/dL MENG ROMEO Comment: [facility] Supplemental ranges: LABORATORY <140 mg/dL before meals <180 mg/dL all other times of the day Specimen Blood Performing Organization Address City/[facility]/Zipcode Phone Number [address] LABORATORY EKG 12-LEAD (03/09/2020 6:14 AM EDT) Ventricular rate 70 BPM MUSE SYSTEM Atrial Rate 70 BPM MUSE SYSTEM P-R Interval 162 ms MUSE SYSTEM QRS Duration 140 ms MUSE SYSTEM Q-T Interval 424 ms MUSE SYSTEM QTC Calculated (Bezet) 457 ms MUSE SYSTEM Calculated P [place] 39 degrees MUSE SYSTEM Calculated R [place] 5 degrees MUSE SYSTEM Calculated T [place] 39 degrees MUSE SYSTEM INTERPRETATION Normal sinus rhythm MUSE SYSTEM Non-specific intra-ventricular conduction block Abnormal ECG No previous ECGs available Confirmed by MD MOSES, CHRISTAL ([id number]) on 03/09/2020 1 :50:41 PM Specimen Performing Organization Address City/[facility] Phone Number MUSE SYSTEM POCT Glucose (03/09/2020 5:51 AM EDT) POC Glucose 228 (H) 65 - 199 mg/dL [facility] Comment: [facility] Supplemental ranges: LABORATORY <140 mg/dL before meals <180 mg/dL all other times of the day Specimen Blood Performing Organization Address [facility] Phone Number [address] LABORATORY POCT Glucose (03/09/2020 3:43 AM EDT) POC Glucose 280 (H) 65 - 199 mg/dL MENG ROMEO Comment: [facility] Supplemental ranges: LABORATORY <140 mg/dL before meals <180 mg/dL all other times of the day Specimen Blood Performing Organization Address [facility] Phone Number [address] LABORATORY POCT Glucose (03/09/2020 2:02 AM EDT) POC Glucose 315 (H) 65 - 199 mg/dL [facility]ENG ROMEO Comment: [facility] Supplemental ranges: LABORATORY <140 mg/dL before meals <180 mg/dL all other times of the day Specimen Blood Performing Organization Address [facility] Phone Number [address] LABORATORY Misc Sendout (03/09/2020 2:00 AM EDT) Pathologist Sig nature Misc Sendout See Note MENG ROMEO Comment: [facility] The ordered test is: [employer] LABORATORY Test performed by: [employer], [address] [place] [address] See Scanned Report. Specimen Blood Narrative Performed At This result has an attachment that is no t available. Performing Organization Address [facility] Phone Number [address] LABORATORY Miscellaneous Lab request (03/09/2020 2:00 AM EDT) [facility] Lab Result Request received in lab. [facility] Munira Comment: [facility] Collection date/time has been modified to: 03/03 02:00:00. ??Previous LABORATORY collection date/time: 23:15:00. Corrected on 03/09/20 2:14:3 8 EDT by Franca Calix. Please contact the lab or refer to previously-reported data. Specimen Blood Resulting Agency Comment Spec In Lab Performing Organization Address [facility] Phone Number [address] LABORATORY POCT Glucose (03/08/2020 11:17 PM EDT) [facility] POC Glucose 309 (H) 65 - 199 mg/dL [facility] Comment: [facility] Supplemental ranges: LABORATORY <140 mg/dL before meals <180 mg/dL all other times of the day Specimen Blood Performing Organization Address [facility] Phone Number [address] LABORATORY Aspergillus Antigen (03/08/2020 11:15 PM EDT) [facility] Aspergillus Ag <0.500 <0.5 Index MENG ROMEO Comment: [facility] ADDITIONAL INFORMATION ------ LABORATORY This is a qualitative test and the resulted index valu e is not indicative of disease severity. ??Serial testing i s recommended for patients at high risk for invasive aspergillosis. This assay was performed using the FDA-cleared [employer] Platelia Aspergillus Galactomannan EIA. Test Performed by: [facility] [address] [place] [address] [employer]: Matthew Song M.D. Ph.D.; CLIA# [id number] Specimen Blood Resulting Agency Comment Spec In Lab Performing Organization Address City/State/Zipcode Phone Number [address] LABORATORY Legionella Urinary Antigen (03/08/2020 10:54 PM EDT) Pathologist [facility] Legionella Urinary Negative Negative [facility] Antigen Comment: [facility] negative Legionella Urinary Antigen by EIA sug gests no recent or current LABORATORY infection with L. pneumophila Serogroup 1. Antigen may not be present in urine in early infection, and the level of ant igen present in the urine may be below the detection limit of the test. Sensitivity: 95% Spec ificity 95%. Specimen Urine Resulting Agency Comment Spec In Lab Performing Organization Address [facility] Phone Number [address] LABORATORY Respiratory Panel PCR (03/08/2020 10:54 PM EDT) Pathologist [facility] Resp Panel Source SOCIAL WORK LECTURER Swab [facility] LABORATORY Resp Panel PCR Negative Negative [facility] Comment: [facility] Respiratory Panels are performed on the [facility], using multiplexed PCR HOSPITAL nucleic acid detection. ??Ne gative results do not preclude respiratory infection LABORATORY and should not be used as the sole basis for diagnosis , treatment or other management decisions. Adenovirus Not Detected Not Detected [facility] LABORATORY Coronavirus HKU1 Not Detected Not Detected [facility] LABORATORY Coronavirus NL63 Not Detected Not Detected [facility] LABORATORY Coronavirus 229E Not Detected Not Detected [facility] LABORATORY Coronavirus OC43 Not Detected Not Detected [facility] LABORATORY Human Metapneumovirus Not Detected Not Detected [facility] LABORATORY Human Not Detected Not Detected [facility] Rhino/Enterovirus [facility] LABORATORY Influenza A Not Detected Not Detected [facility] LABORATORY Influenza B Not Detected Not Detected [facility] LABORATORY Parainfluenza 1 Not Detected Not Detected [facility] LABORATORY Parainfluenza 2 Not Detected Not Detected [facility] LABORATORY Parainfluenza 3 Not Detected Not Detected [facility] LABORATORY Parainfluenza 4 Not Detected Not Detected [facility] LABORATORY Respiratory Syncytial Not Detected Not Detected [facility] Virus [facility] LABORATORY Chlamydophila Not Detected Not Detected [facility] pneumoniae [facility] LABORATORY Mycoplasma pneumoniae Not Detected Not Detected [facility] LABORATORY Specimen Nasopharyngeal Swab Resulting Agency Comment Spec In Lab Performing Organization Address [facility] Phone Number [address] LABORATORY Urinalysis without microscopic (03/08/2020 10:24 PM EDT) Glucose UA >=1000 (Critical) Negative mg/dL [facility] Comment: [facility] Urinalysis result NOT critical without a combin ation of Glucose greater than LABORATORY or equal to 500 mg/dL AND Ketones greater than or equa l to 80 mg/dL Protein UA Trace (A) Negative mg/dL [facility] LABORATORY Bilirubin UA Negative Negative mg/dL [facility] Comment: [facility] Clinical correlation required for positive Urine Bilirubin results as false LABORATORY positive may occur with some drugs and drug related pr oducts. If a false positive is suspected a serum total bilirubin should b e considered if clinically indicated. Urobilinogen UA Normal Normal mg/dL [facility] LABORATORY pH UA 5.5 5.0 - 8.0 [facility] LABORATORY Blood UA Negative Negative mg/dL [facility] LABORATORY Ketones UA Negative Negative mg/dL [facility] LABORATORY Nitrite UA Negative Negative [facility] LABORATORY Leukocytes UA Negative Negative [facility] LABORATORY Appearance UA Clear Clear [facility] LABORATORY Spec Parnell UA >=1.030 (A) 1.006 - 1.030 [facility] LABORATORY Color UA Yellow Yellow [facility] LABORATORY Specimen Urine Resulting Agency Comment Spec In Lab Performing Organization Address [facility]/Zipcode Phone Number [address] LABORATORY RAPID COVID-19 PCR (MH/APD/NLH) (03/08/2020 10:23 PM EDT) Rapid SARS-CoV-2 Not Detected Not Detected [facility] RNA Comment: [facility] This result should be interpreted in combination with the clinical LABORATORY observations, patient history and epidemiologica l information. For testing of asymptomatic individuals, assay performance characteri stics and clinical utility have not been evaluated. Testing for SARS-CoV- 2 (Severe acute respiratory syndrome coronav irus 2, formerly known as 2019 novel coronavirus or 2019-nCoV) to aid in the diagnosis of CO VID-19 is performed using the Simplexa COVID-19 Direct Assay by [employer] as authori zed by the FDA issued Emergency Use Authorization (EUA). This assay is inten ded for In-vitro Diagnostic (IVD) use with nasopharyngeal swabs collect ed from individuals meeting the CDC criteria for testing. The assay is per formed based on the instructions for use and additional guidance provided by the FDA. Testing is performed in the Microbiolog y Laboratory within the Department of Pathology and Laboratory Medicine at [facility], certified under the Clinical Laboratory Improvement Amendments of 1988 (CL [place]), 42 U.S.C. section 263a, to perform high complexity tests. Assay performa nce has been verified according to clinical laboratory regulatory requiremen ts. Test results are provided above. A resul t of Not Detected indicates that the viral RNA target is not present but does not preclude SARS-CoV-2 infection. False negative results may occur if a specimen is impr operly collected, transported or handled; if amplification inhibitors ar e present; or if inadequate numbers of viral particles ar e present in the specimen. A result of Detected suggests a current or recent infectio n and the patient is presumed to be infected. Positive and negative predictive value s for this test are highly dependent on disease prevalence. A result of I nvalid indicates the inability to conclusively determine the presence or absence of SARS-CoV-2 RNA in the sample which can be due to a variety of factors . Recollection is recommended in the case of an invalid result. CDC COVID-19 criteria for testing on human specimens a nd clinical management guidance information are available at the CDC Coronavi marlin Disease 2019 (COVID-19) webpage under Information for Healthcare P rofessionals (https://www.cdc.gov/coronavirus/2019-ncov/hcp/index.h tml). SARS-CoV-2 SOCIAL WORK LECTURER Swab [facility]ENG ROME[facility] LABORATORY Specimen Nasopharyngeal Swab Resulting Agency Comment Spec In Lab Performing Organization Address City/State/Zipcode Phone Number MENG ROMEO [place] [phone] HOSPITAL LABORATORY Hemoglobin A1c (03/08/2020 10:00 PM EDT) Hemoglobin A1C 8.8 (H) 4.3 - 5.6 % [facility]ENG ROMEO Comment: [facility] Reference Range: LABORATORY 4.3 - 5.6% 5.7 - 6.4% - Increased Risk of Developing Diabetes Rebecca litus >= 6.5% - Consistent with diagnosis of Diabetes Mellit us In the absence of hyperglycemia (i.e. plasma glucose > 200 mg/dL) or classic symptoms of hyperglycemia a repeat measu rement of HbA1c should be performed on a separate sample to confirm the diagnosis. Diagnosis and Classification of Diabetes Mellitus, [facility] 2013; 36: Suppl. 1, S67-74 Est Avg Gluc 205 mg/dL [facility]ENG ROMEO Comment: [facility] eAG equivalents for HbA1c percentages: [place] BORATORY HbA1c(%) ?eAG(mg/dL) 6.0 ?126 6.5 ?140 7.0 ?154 7.5 ?169 8.0 ?183 8.5 ?197 9.0 ?212 9.5 ?226 10.0 ? 240 Limitations: The eAG calculation has not been validate d on women, individuals below 18 years old and above 70 years old, and individuals with hemoglobinopathies. Additional resources are available on the ADA website. Aguila RODRIGUEZ, Anuj New, Sg Gray, et al. ??Tr anslating the A1C assay into estimated average glucose values. ??Diabetes Care 2008:31(8):147 3-1478. Specimen Blood Resulting Agency Comment Spec In Lab Performing Organization Address City/[facility]/Zipcode Phone Number [address] LABORATORY Iron and TIBC (03/08/2020 10:00 PM EDT) Pathologist Sig nature Iron 54 45 - 160 mcg/dL [facility] LABORATORY TIBC 158 (L) 250 - 450 mcg/dL [facility] Iron Saturation 34 20 - 50 % [facility] LABOR[facility] Specimen Blood Resulting Agency Comment Spec In Lab Performing Organization Address [facility] Phone Number [address] LABORATORY ABORH Recheck Status (03/08/2020 10:00 PM EDT) Pathologist Sig nature ABORH Recheck Order Order Placed [facility] LABORATORY ABORH Type Recheck Complete [facility] Specimen Blood Resulting Agency Comment Spec In Lab Performing Organization Address [facility] Phone Number [address] LABORATORY CK (03/08/2020 10:00 PM EDT) Pathologist Sig [facility] CK, Total 41 0 - 200 unit/L [facility]ITAL LABORATORY Specimen Blood Resulting Agency Comment Spec In Lab Performing Organization Address City/[facility] Phone Number [address] LABORATORY Antibody screen (03/08/2020 10:00 PM EDT) Pathologist Sig [facility] Ab Screen Interp Negative [facility] LABORATORY Expires at 2359 on: 03/11/2020 [facility] LABORATORY Specimen Blood Resulting Agency Comment Spec In Lab Performing Organization Address [facility] Phone Number [address] LABORATORY ABO/Rh Typing (03/08/2020 10:00 PM EDT) Pathologist Sig [facility] ABORh Type A Pos [facility] LABORATORY Specimen Blood Resulting Agency Comment Spec In Lab Performing Organization Address City/[facility]/Zipcode Phone Number [address] LABORATORY Differential, Automated (03/08/2020 10:00 PM EDT) Neutrophils % 94.4 % [facility] LABORATORY Neutr Abs (ANC) 10.51 (H) 1.70 - 6.10 [facility] x10(3)/[facility] LABORATORY Lymphocytes % 2.2 % [facility] LABORATORY Lymphocytes Abs 0.2 (L) 0.9 - 3.2 [facility] x10(3)/[facility] LABORATORY Monocytes % 2.6 % [facility] LABORATORY Monocyte Abs 0.3 0.3 - 0.9 [facility] x10(3)/[facility] LABORATORY Eosinophils % 0.0 % [facility] LABORATORY Eosinophils Abs 0.0 0.0 - 0.4 [facility] x10(3)/[facility] LABORATORY Basophils % 0.0 % [facility] LABORATORY Basophils Abs 0.0 0.0 - 0.1 [facility] x10(3)/[facility] LABORATORY Immature Gran % 0.80 % [facility] Comment: [facility] Immature granulocytes(IG's)percentage and absolu te count will include LABORATORY metamyelocytes, myelocytes, and promyelo cytes. Blood smears from CBCs yielding IG's will be scanned manually for concor dance. If this scan disagrees with the automated IG or if promyelocytes are noted, a manual d ifferential will be performed. Jessica Gran Abs 0.09 (H) 0.00 - 0.04 [facility] x10(3)/[facility] LABORATORY Specimen Blood Resulting Agency Comment Spec In Lab Performing Organization Address City/[facility]/Zipcode Phone Number [address] LABORATORY Hemogram (03/08/2020 10:00 PM EDT) Pathologist Sig nature WBC 11.1 (H) 4.0 - 9.5 [facility] x10(3)/[facility] LABORATORY RBC 3.34 (L) 4.58 - 5.54 [facility] x10(6)/[facility] LABORATORY Hemoglobin 10.7 (L) 13.7 - 16.5 gm/dL [facility] LABORATORY Hematocrit 30.8 (L) 40.5 - 48.5 % [facility] LABORATORY MCV 92.2 82.9 - 93.1 fL [facility] LABORATORY MCH 32.0 27.5 - 32.1 pg [facility] LABORATORY MCHC 34.7 32.0 - 35.7 gm/dL [facility] LABORATORY Platelets 252 145 - 357 [facility] x10(3)/[facility] LABORATORY RDWSD 53.0 (H) 36.0 - 45.0 fL [facility] LABORATORY RDWCV 15.9 (H) 11.4 - 13.8 % [facility] LABORATORY MPV 9.0 7.6 - 12.9 fL [facility] LABORATORY nRBC % Auto 0.0 % [facility] LABORATORY nRBC Abs Auto 0.000 0.000 - 0.000 [facility] x10(3)/[facility] LABORATORY Specimen Blood Resulting Agency Comment Spec In Lab Performing Organization Address City/[facility]/Zipcode Phone Number [address] LABORATORY Lactate Dehydrogenase (03/08/2020 10:00 PM EDT) Pathologist Sig nature LDH 458 (H) 110 - 220 unit/L [facility] LABORATORY Specimen Blood Resulting Agency Comment Spec In Lab Performing Organization Address City/[facility]/Zipcode Phone Number [address] LABORATORY Blood culture (03/08/2020 10:00 PM EDT) Pathologist Sig nature Blood Culture No growth at 5 [facility] LABORATORY Specimen Blood Resulting Agency Comment Spec In Lab Performing Organization Address [facility] Phone Number [address] LABORATORY Blood culture (03/08/2020 10:00 PM EDT) Pathologist Sig nature Blood Culture No growth at 5 [facility] days. [facility] LABORATORY Specimen Blood Resulting Agency Comment Spec In Lab Performing Organization Address City/State/Zipcode Phone Number [facility] [place] [place] [address] [facility] CMP w/fasting Glucose (03/08/2020 10:00 PM EDT) Glucose Fasting 305 (H) 65 - 99 [facility] Comment: mg/dL [facility] ?Fasting* Glucose Interpretive Criteria LABORATORY Normal ?65-99 mg/dL Impaired Fasting glucose ?100-12 5 mg/dL Consistent with Diabetes Mellitus ? >or= 126 mg/ dL *Fasting is defined as no caloric intake for at least 8 hours In the absence of unequivocal hyperglycemia a plasma glucose value of >or= 126 mg/dL should be repeated on a subsequent day. Diagnosis and Classification of Diabetes Mellitus, Position Statement from the [employer]. ??Diabetes Care, Volume 33, Supplement 1, Sep 2009 BUN 22 (H) 10 - 20 [facility] LABORATORY Creatinine 0.73 (L) 0.80 - 1.50 [facility] mg/dL [facility] LABORATORY Sodium 134 (L) 135 - 145 [facility] mmol/L [facility] LABORATORY Potassium 3.6 3.5 - 5.0 [facility] Comment: mmol/L [facility] Please note: ??Patients with WBC >100,000 may welch ve falsely elevated Potassium LABORATORY levels. ??For accurate Potassium quantification in the se patients send serum separator tube (gold top) fo r subsequent determinations. ??Contact the Clinical Chemistry Laboratory if there are any questions. Chloride 98 98 - 107 [facility] mmol/L [facility] LABORATORY CO2 20 (L) 22 - 31 [facility] mmol/L [facility] LABORATORY Anion Gap 16 (H) 5 - 15 [facility] mmol/L [facility] LABORATORY Calcium 9.6 8.5 - 10.5 [facility] mg/dL [facility] LABORATORY Total Protein 6.1 6.1 - 8.0 [facility] gm/dL [facility] LABORATORY Albumin 2.8 (L) 3.2 - 5.2 [facility] gm/dL [facility] LABORATORY AST 35 0 - 39 [facility] unit/L [facility] LABORATORY ALT 43 0 - 55 [facility] unit/L [facility] LABORATORY Alk Phos 54 40 - 130 [facility] unit/L [facility] LABORATORY Total Bilirubin 0.4 0.2 - 1.3 [facility] mg/dL [facility] LABORATORY Estimated GFR 98 >=60 [facility] Comment: mL/min/1.73 [facility] The eGFR was calculated using the CKD-EPI equati on. As with all creatinine m?? LABORATORY based estimates of kidney function, eGFR values calcul ated with the CKD-EPI equation are not accurate in patients with acute kidne y failure, extremes of body mass or the acutely ill. [email or web address] [email or web address] eGFR 114 >=60 [facility] French Comment: mL/min/1.73 [facility] The eGFR was calculated using the CKD-EPI equati on. As with all creatinine m?? LABORATORY based estimates of kidney function, eGFR values calcul ated with the CKD-EPI equation are not accurate in patients with acute kidne y failure, extremes of body mass or the acutely ill. [email or web address] Specimen Blood Resulting Agency Comment Spec In Lab Performing Organization Address City/[facility] Phone Number [address] LABORATORY Phosphorus (03/08/2020 10:00 PM EDT) Pathologist Sig nature Phosphorus 3.0 2.5 - 4.5 mg/dL [facility] LABORATORY Specimen Blood Resulting Agency Comment Spec In Lab Performing Organization Address City/[facility]/Zipcode Phone Number [address] LABORATORY Magnesium (03/08/2020 10:00 PM EDT) Pathologist Sig nature Magnesium 0.79 0.69 - 1.07 mmol/L [facility] LABORATORY Specimen Blood Resulting Agency Comment Spec In Lab Performing Organization Address City/[facility]/Zipcode Phone Number [address] LABORATORY APTT (03/08/2020 10:00 PM EDT) Pathologist Sig nature PTT 29 25 - 37 sec [facility] Comment: [facility] The PTT is NOT appropriate for heparin monitorin g. Use the Anti-Xa level for LABORATORY heparin monitoring (HEP UFH) or LMWH monitoring (HEP LMW). A PTT less than 37 seconds generally indicates adequate hemostasis. Specimen Blood Resulting Agency Comment Spec In Lab Performing Organization Address City/[facility] Phone Number [address] LABORATORY Prothrombin Time (03/08/2020 10:00 PM EDT) PT 16.2 (H) 9.4 - 12.5 sec [facility] LABORATORY INR 1.4 [facility]: [facility] An INR <2.0 indicates adequate procoagulant acti vity for hemostasis in most LABORATORY patients without underlying bleeding disorders, though the INR may not adequately reflect hemostatic capacity in patients wit h liver disease and synthetic impairment. The recommended target INR range for therapeutic anticoagulation is 2.0 ? 3.0 for most applications, though lower and higher ranges may be appropriate depending on clinical circum stances. Specimen Blood Resulting Agency Comment Spec In Lab Performing Organization Address City/[facility] Phone Number [address] LABORATORY Lactate, whole blood, send to lab ([facility]) (03/08/2020 10:00 PM EDT) Pathologist Sig nature Lactate WB 2.2 0.5 - 2.2 mmol/L [facility] LABORATORY Specimen Blood Resulting Agency Comment Spec In Lab Performing Organization Address City/[facility]/Zipcode Phone Number [address] LABORATORY POCT Glucose (03/08/2020 9:44 PM EDT) POC Glucose 311 (H) 65 - 199 mg/dL [facility] Comment: [facility] Supplemental ranges: LABORATORY <140 mg/dL before meals <180 mg/dL all other times of the day Specimen Blood Performing Organization Address City/State/Zipcode Phone Number [facility] [place] [phone] H[facility]PITAL LABORATORY documented in this encounter Visit Diagnoses Diagnosis Acute hypoxemic respiratory failure Muscle weakness of lower extremity Muscle weakness (generalized) documented in this encounter Admitting Diagnoses Diagnosis Acute hypoxemic respiratory failure documented in this encounter Administered Medications Inactive Administered Medications - up to 3 most recent administrations Medication Order MAR Action Action Date Dose Rate Site acetaminophen (Tylenol) tablet Given 03/15/2020 5:20 AM EDT 650 mg 650 mg 650 mg, Oral, EVERY 6 HOURS PRN, Starting 03/11/20 at 1436, Until Rosa Elena 03/22/20 at 1454, Pain, Fever, Maximum dose of acetaminophen is 4000 mg from all sources in 24 hours., Routine Given 03/14/2020 9:42 PM EDT 650 mg Given 03/13/2020 8:05 PM EDT 650 mg azithromycin (ZITHROMAX) 500 mg New Bag 03/09/2020 9:59 AM ED T 500 mg 255.1 mL/hr in sodium chloride 0.9% 255 mL 500 mg, Intravenous, EVERY 24 HOURS, First dose on Thu03/09/20 at 1000, Until Discontinued, Administer over 60 Minutes, Indication for (Active or Suspected): Pneumonia (Community) bisacodyL (Dulcolax) suppository 10 mg Given 03/15/2020 4:18 PM EDT 10 mg 10 mg, Rectal, DAILY PRN, Starting Rosa Elena 03/15/20 at 0856, Until Rosa Elena 03/22/20 at 1454, Constipation, Routine chlorhexidine (PERIDEX) 0.12 % oral solution Given 8:04 AM EDT 15 mLs 15 mL 15 mL, Oral, 2 TIMES DAILY, First dose on Thu03/09/20 at 2100, Until Discontinued, Swab oral cavity. Ventilator-associated pneumonia prophylaxis, Routine Given 03/10/2020 8:03 PM EDT 15 mLs Given 03/10/2020 8:30 AM EDT 15 mLs dextrose 10% infusion 250 mL, at 1,000 mL/hr, Intravenous, VALORIE RY 30 MIN PRN, Starting 03/17/20 at 1333, Until Rosa Elena 03/22/20 at 1454, For BG 50-70 mg/dL: Oral treatment preferred:?? If able to drink, give 120 mL Juice or Regu lar (not diet) soda OR If NPO, give 15 gram glucose 40% oral gel massaged into buccal mucosa OR if unconscious or uncooperative, give 25 gram (250 mL) Dex trose 10% IV over 15 minutes per protocol OR, if no IV access, 1 mg Glucagon IM. For BG less than 50 mg/dL: Oral treatment preferred:?? If able to drink, give 240 mL Juice or Regular (not diet) soda OR If NPO, give 30 gram glucose 40% oral gel massaged in buccal mucosa OR if unconscious or uncooperative, give 25 gr am (250 mL) Dextrose 10% IV over 15 minutes per protocol OR, if no IV access, 1 mg G lucagon IM. Recheck BG in 30 minutes. May repeat juice/soda, gel, dextrose or gluc agon once per episode. For persistent hypoglycemia, consider longer-acting treatment for the duration of the active insulin., etomidate (AMIDATE) injection 31 mg Given 03/09/2020 11:30 AM EDT 31 mg 31 mg (rounded from 31.08 mg = 0.3 mg/kg/dose ? 103.6 kg), Intravenous, ONCE, 1 dose, Thu03/09/20 at 1215, Routine fentaNYL (PF) 50 mcg/mL injection 1 dose, Starting Thu03/09/20 at 1156, Un til Thu03/09/20 at 1200, Aleks Robbins (): cabinet override, fentaNYL (PF) 50 mcg/mL injection Given 03/09/2020 12:00 PM EDT 50 mcg 100 mcg, Intravenous, ONCE, 1 dose, Thu03/09/20 at 1315, If medication ordered subcutaneously, do not administer more than 2 mL as a single injection., Routine finasteride (Proscar) tablet 5 mg Given 03/22/2020 9:04 AM EDT 5 mg 5 mg, Oral, DAILY, First dose on Thu03/09/20 at 0900, Until Discontinued, DO NOT SPLIT, CRUSH OR OPEN, Routine Given 03/21/2020 8:40 AM EDT 5 mg Given 03/20/2020 9:23 AM EDT 5 mg folic acid (Folvite) tablet 1,000 mcg Given 03/22/2020 9:04 AM EDT 1,000 mcg 1,000 mcg (1 mg), Oral, DAILY, First dose on Thu03/09/20 at 0900, Until Discontinued, Routine Given 03/21/2020 8:41 AM EDT 1,000 mcg Given 03/20/2020 9:23 AM EDT 1,000 mcg furosemide (LASIX) injection 20 mg Given 03/10/2020 11:10 AM EDT 20 mg 20 mg, Intravenous, ONCE, 1 dose, 03/10/20 at 1145 furosemide (LASIX) injection 20 mg Given 03/17/2020 2:00 PM EDT 20 mg 20 mg, Intravenous, ONCE, 1 dose, 03/17/20 at 1330 glucagon (human recombinant) injection S olR 1 mg 1 mg, Intramuscular, EVERY 30 MIN PRN, Starting 03/17/20 at 1333, Until Rosa Elena 03/22/20 at 1454, Low blood sugar, For BG 50-70 mg/dL: Oral treatment preferred:?? If able to drink, give 120 mL Juice or R egular (not diet) soda OR If NPO, give 15 gram glucose 40% oral gel massaged into buccal mucosa OR if unconscious or uncooperative, give 25 gram (250 mL) Dex trose 10% IV over 15 minutes per protocol OR, if no IV access, 1 mg Glucagon IM. For BG less than 50 mg/dL: Oral treatment preferred:?? If able to drink, give 240 mL Juice or Regular (not diet) soda OR If NPO, give 30 gram glucose 40% oral gel massaged in buccal mucosa OR if unconscious or uncooperative, give 25 gr am (250 mL) Dextrose 10% IV over 15 minutes per protocol OR, if no IV access, 1 mg G lucagon IM. Recheck BG in 30 minutes. May repeat juice/soda, gel, dextrose or gluc agon once per episode. For persistent hypoglycemia, consider longer-acting treatment for the duration of the active insulin., Routine glucose (GLUTOSE) 40% oral geL 15-30 g, Buccal, EVERY 30 MIN PRN, Start ing 03/17/20 at 1333, Until Rosa Elena 03/22/20 at 1454, Low blood sugar, For BG 50-70 m g/dL: Oral treatment preferred:?? If able to drink, give 120 mL Juice or Regular (not diet) soda OR If NPO, give 15 gram glucose 40% oral gel massaged into buccal mucosa OR if unconscious or uncooperative, give 25 gram (250 mL) Dex trose 10% IV over 15 minutes per protocol OR, if no IV access, 1 mg Glucagon IM. For BG less than 50 mg/dL: Oral treatment preferred:?? If able to drink, give 240 mL Juice or Regular (not diet) soda OR If NPO, give 30 gram glucose 40% oral gel massaged in buccal mucosa OR if unconscious or uncooperative, give 25 gr am (250 mL) Dextrose 10% IV over 15 minutes per protocol OR, if no IV access, 1 mg G lucagon IM. Recheck BG in 30 minutes. May repeat juice/soda, gel, dextrose or gluc agon once per episode. For persistent hypoglycemia, consider longer-acting treatment for the duration of the active insulin. 1 tube contains 15 grams of glucose (net weig ht of tube = 37.5 grams., Routine HYDROmorphone (DILAUDID) injection 0.5 m g Given 03/13/2020 1:11 AM EDT 0.5 mg 0.5 mg, Intravenous, EVERY 4 HOURS PRN, Starting Thu03/09/20 at 2205, Until Thu03/14/20 at 1845, Pain, STAT Given 03/10/2020 11:10 AM EDT 0.5 mg Given 03/10/2020 4:40 AM EDT 0.5 mg insulin glargine VIAL injection 10 Units Given 03/14/2020 9:43 PM EDT 10 Units 10 Units, Subcutaneous, EVERY 24 HOURS, First dose on Thu03/14/20 at 2100, Until Discontinued, Routine insulin glargine VIAL injection 5 Units Given 03/21/2020 9:14 PM EDT 5 Units 5 Units, Subcutaneous, EVERY 24 HOURS, First dose (after last modification) on Thu03/15/20 at 2100, Until Discontinued, Routine Given 03/20/2020 9:14 PM EDT 5 Units Given 03/19/2020 9:00 PM EDT 5 Units insulin isophane- NPH VIAL injection 5 Given 03/14/2020 8:43 AM EDT 5 Units Units 5 Units, Subcutaneous, 2 TIMES DAILY, First dose on Thu03/13/20 at 0900, Until Discontinued, Routine Given 03/13/2020 8:09 PM EDT 5 Units Given 03/13/2020 8:16 AM EDT 5 Units insulin lispro (HumaLOG) VIAL injection 1-4 Given 02/13 3:50 PM EDT 4 Units Units 1-4 Units, Subcutaneous, EVERY 4 HOURS SCHEDULED, First dose on Thu03/09/20 at 0000, Until Discontinued, CORRECTION BOLUS [1-4 Units] Sensitive Sliding Scale: Correction factor 40 (1 unit of insulin is expected to drop the glucose 40 mg/dL) BG 160 - 200 Give 1 unit BG 201 - 240 Give 2 units BG 241 - 280 Give 3 units BG greater than 280, give 4 units and recheck BG in 2 hours. - If recheck BG is LESS than 280, give no insulin and resume schedule - If recheck BG is GREATER than 280, give 4 units and repeat BG in 2 hours (no more than 3 times) & call for new insulin orders. DO NOT hold if NPO, unless specifically told to do so. Per Blood Glucose Monitoring Policy, re-check a BG of > 240 in 2 hours., Routine Given 03/12/2020 8:06 AM EDT 2 Units Given 03/12/2020 4:33 AM EDT 3 Units insulin lispro (HumaLOG) VIAL injection 1-6 Given 09/2019 7:31 AM EDT 2 Units Units 1-6 Units, Subcutaneous, EVERY 4 HOURS SCHEDULED, First dose on Thu03/12/20 at 2000, Until Discontinued, CORRECTION BOLUS [1-6 Units] Moderate Sliding Scale: Correction factor 20 (1 unit of insulin is expected to drop the glucose 20 mg/dL) BG 140 - 160 Give 1 unit BG 161 - 180 Give 2 units BG 181 - 200 Give 3 units BG 201 - 220 Give 4 units BG 221 - 240 Give 5 units BG greater than 240, give 6 units and recheck BG in 2 hours. - If recheck BG is LESS than 240, give no insulin and resume schedule. - If recheck BG is GREATER than 240, give 6 units and repeat BG in 2 hours (no more than 3 times) & call for new insulin orders. DO NOT hold if NPO, unless specifically told to do so. Per Blood Glucose Monitoring Policy, re-check a BG of > 240 in 2 hours., Routine Given 03/14/2020 5:00 AM EDT 6 Units Given 03/14/2020 12:28 AM EDT 3 Units insulin lispro (HumaLOG) VIAL injection 2-8 Given 09/2019 4:07 PM EDT 8 Units Units 2-8 Units, Subcutaneous, EVERY 4 HOURS SCHEDULED, First dose on Thu03/14/20 at 0845, Until Discontinued, CORRECTION BOLUS Moderate BG 140 - 160 Give 2 units BG 161 - 200 Give 4 units BG 201 - 240 Give 6 units BG greater than 240, give 8 units and recheck BG in 2 hours. If less than 240 after two hours, give no insulin and resume prior schedule. If BG remains greater than 240, repeat 8 units (no more than three times) & call for new basal insulin orders. Do not hold if NPO, unless specifically told to do so., Routine Given 03/14/2020 11:55 AM EDT 4 Units insulin lispro (HumaLOG) VIAL injection 2-8 Given 09/2019 6:14 PM EDT 8 Units Units 2-8 Units, Subcutaneous, 4 TIMES DAILY BEFORE MEALS & NIGHTLY, First dose (after last modification) on Thu03/14/20 at 2100, Until Discontinued, CORRECTION BOLUS Moderate BG 140 - 160 Give 2 units BG 161 - 200 Give 4 units BG 201 - 240 Give 6 units BG greater than 240, give 8 units and recheck BG in 2 hours. If less than 240 after two hours, give no insulin and resume prior schedule. If BG remains greater than 240, repeat 8 units (no more than three times) & call for new basal insulin orders. Do not hold if NPO, unless specifically told to do so., Routine insulin lispro (HumaLOG) VIAL injection 2-8 Given 12/2019 12:20 PM EDT 4 Units Units 2-8 Units, Subcutaneous, 4 TIMES DAILY BEFORE MEALS & NIGHTLY, First dose (after last modification) on Thu03/15/20 at 0845, Until Discontinued, CORRECTION BOLUS Moderate BG 140 - 160 Give 2 units BG 161 - 200 Give 4 units BG 201 - 240 Give 6 units BG greater than 240, give 8 units and recheck BG in 2 hours. If less than 240 after two hours, give no insulin and resume prior schedule. If BG remains greater than 240, repeat 8 units (no more than three times) & call for new basal insulin orders. Do not hold if NPO, unless specifically told to do so., Routine Given 03/16/2020 8:54 PM EDT 4 Units Given 03/16/2020 3:45 PM EDT 8 Units insulin lispro (HumaLOG) VIAL injection Given 03/14/2020 7:52 P M EDT 12 Units 3-12 Units 3-12 Units, Subcutaneous, EVERY 4 HOURS SCHEDULED, First dose on Thu03/14/20 at 2000, Until Discontinued, CORRECTION BOLUS Resistant to insulin obese patient and TDD (total daily dose of all insulin needed to achieve glycemic control) greater than 60 units BG 140 - 160 Give 3 units BG 161 - 200 Give 6 units BG 201 - 240 Give 9 units BG greater than 240, give 12 units and recheck BG in 2 hours. If less than 240 after two hours, give no insulin and resume prior schedule. If BG remains greater than 240, repeat 12 units (no more than three times) & call for new basal insulin orders. Do not hold if NPO, unless specifically told to do so., Routine insulin lispro (HumaLOG) VIAL injection Given 03/18/2020 3:56 P M EDT 12 Units 3-12 Units 3-12 Units, Subcutaneous, 4 TIMES DAILY BEFORE MEALS & NIGHTLY, First dose on 03/17/20 at 1630, Until Discontinued, CORRECTION BOLUS Resistant to insulin obese patient and TDD (total daily dose of all insulin needed to achieve glycemic control) greater than 60 units BG 140 - 160 Give 3 units BG 161 - 200 Give 6 units BG 201 - 240 Give 9 units BG greater than 240, give 12 units and recheck BG in 2 hours. If less than 240 after two hours, give no insulin and resume prior schedule. If BG remains greater than 240, repeat 12 units (no more than three times) & call for new basal insulin orders. Do not hold if NPO, unless specifically told to do so., Routine Given 03/18/2020 12:20 PM EDT 9 Units Given 03/17/2020 6:12 PM EDT 12 Units insulin lispro (HumaLOG) VIAL injection Given 03/20/2020 4:54 P M EDT 6 Units 3-12 Units 3-12 Units, Subcutaneous, EVERY 4 HOURS SCHEDULED, First dose (after last modification) on Thu03/18/20 at 2000, Until Discontinued, CORRECTION BOLUS Resistant to insulin obese patient and TDD (total daily dose of all insulin needed to achieve glycemic control) greater than 60 units BG 140 - 160 Give 3 units BG 161 - 200 Give 6 units BG 201 - 240 Give 9 units BG greater than 240, give 12 units and recheck BG in 2 hours. If less than 240 after two hours, give no insulin and resume prior schedule. If BG remains greater than 240, repeat 12 units (no more than three times) & call for new basal insulin orders. Do not hold if NPO, unless specifically told to do so., Routine Given 03/19/2020 8:07 PM EDT 9 Units Given 03/19/2020 5:28 PM EDT 6 Units insulin lispro (HumaLOG) VIAL injection Given 03/21/2020 4:05 P M EDT 9 Units 3-12 Units 3-12 Units, Subcutaneous, EVERY 4 HOURS SCHEDULED, First dose (after last modification) on Thu03/21/20 at 1200, Until Discontinued, CORRECTION BOLUS Resistant to insulin obese patient and TDD (total daily dose of all insulin needed to achieve glycemic control) greater than 60 units BG 140 - 160 Give 3 units BG 161 - 200 Give 6 units BG 201 - 240 Give 9 units BG greater than 240, give 12 units and recheck BG in 2 hours. If less than 240 after two hours, give no insulin and resume prior schedule. If BG remains greater than 240, repeat 12 units (no more than three times) & call for new basal insulin orders. Do not hold if NPO, unless specifically told to do so., Routine Given 03/21/2020 12:14 PM EDT 3 Units insulin lispro (HumaLOG) VIAL injection 3-12 Units 3-12 Units, Subcutaneous, 4 TIMES DAILY BEFORE MEALS & NIGHTLY, First dose (after last modification) on Rosa Elena 03/22/20 at 0730 , Until Discontinued, CORRECTION BOLUS Resistant to insulin obese patient and TDD (total daily dose of all insulin needed to achieve glycemic control) greater than 60 units B G 140 - 160 Give 3 units BG 161 - 200 Give 6 units BG 201 - 24 0 Give 9 units BG greater than 240, give 12 units and recheck BG in 2 hours. If less than 240 a fter two hours, give no insulin and resume prior schedule. If BG remains greater than 240, repeat 12 units (no more than three times) & call for ne w basal insulin orders. Do not hold if NPO, unless specifically told to do so., Routine lactulose (Chronulac) (0.67 gram/mL) oral Given 03/21/2020 2:22 PM EDT 30 g liquid 30 g 30 g, Oral, 3 TIMES DAILY, First dose on Thu03/21/20 at 1500, Until Discontinued, Titrate to BM, please call MD once BM is complete, Routine lidocaine ((GLYDO)) 2 % gel 11 mL Given 03/16/2020 12:34 PM EDT 11 mLs 11 mL, INTRA-URETHRAL, ONCE, 1 dose, Thu03/16/20 at 1315, Routine lidocaine (XYLOCAINE) 10 mg/mL (1 %) Given 03/09/2020 12:26 PM E DT 200 mg injection 1 dose, Starting Thu03/09/20 at 1112, Until Thu03/09/20 at 1226, Emelia Ramos E.: cabinet override, melatonin tablet 6 mg Given 03/21/2020 9:10 PM EDT 6 mg 6 mg, Oral, NIGHTLY, First dose on Thu03/14/20 at 2315, Until Discontinued, Routine Given 03/20/2020 9:12 PM EDT 6 mg Given 03/19/2020 9:22 PM EDT 6 mg methylPREDNISolone sodium succinate (PF) Given 03/09/2020 6:00 AM EDT 40 mg (SOLU-Medrol) injection 40 mg 40 mg, Intravenous, EVERY 8 HOURS SCHEDULED, First dose on Thu03/08/20 at 2330, Until Discontinued Given 03/08/2020 11:29 PM EDT 40 mg midazolam (VERSED) injection 2 mg Given 03/09/2020 11:39 AM EDT 2 mg 2 mg, Intravenous, ONCE, 1 dose, Thu03/09/20 at 1215, Routine ondansetron (ZOFRAN) injection 4 mg Given 03/15/2020 10:41 AM EDT 4 mg 4 mg, Intravenous, EVERY 8 HOURS PRN, Starting Thu03/15/20 at 0844, Until Thu03/22/20 at 1454, Nausea pantoprazole EC (Protonix) tablet 40 mg Given 03/14/2020 8:38 AM EDT 40 mg 40 mg, Oral, DAILY, First dose on Thu03/09/20 at 0900, Until Discontinued, DO NOT CRUSH OR OPEN, Routine Given 03/13/2020 8:09 AM EDT 40 mg Given 03/12/2020 9:13 AM EDT 40 mg piperacillin-tazobactam (ZOSYN) New Bag 03/12/2020 12:38 AM 3.375 g 12.5 mL/hr 3.375 g vial attach to sodium EDT chloride 0.9% 50 mL Mini-Bag Plus 3.375 g, Intravenous, EVERY 8 HOURS, First dose on 03/12/20 at 0100, Until Discontinued, Administer over 4 Hours, Warning Vesicant/Irritant Medication Do not administer or Y-site with lactated ringers., Indication for (Active or Suspected): Pneumonia ([facility]) polyethylene glycoL (Miralax) packet 17 g Given 03/17/2020 8:39 AM EDT 17 g 17 g, Oral, DAILY, First dose on Rosa Elena 03/15/20 at 0915, Until Discontinued, Routine Given 03/16/2020 8:03 AM EDT 17 g Given 03/15/2020 9:53 AM EDT 17 g polyethylene glycoL (Miralax) packet 17 g Given 03/21/2020 8:42 AM EDT 17 g 17 g, Oral, 2 TIMES DAILY, First dose (after last modification) on Thu03/18/20 at 0900, Until Discontinued, Routine Given 03/20/2020 9:26 AM EDT 17 g Given 03/19/2020 9:21 PM EDT 17 g potassium chloride ER (K-Dur/Klor-Con) Given 03/10/2020 6:00 AM EDT 40 mEq tablet 40 mEq 40 mEq, Oral, EVERY 4 HOURS PRN, Starting 03/10/20 at 0544, Until 03/18/20 at 1606, hypokalemia, Administer for serum potassium (mMol/L) of 3.6 - 3.8 See instructions for Potassium Protocol in online policies., Routine predniSONE (Deltasone) tablet 20 mg Given 03/22/2020 9:04 AM EDT 20 mg 20 mg, Oral, DAILY, 11 doses, First dose on Thu03/20/20 at 0900, Last dose on Thu03/30/20 at 0900, Routine Given 03/21/2020 8:41 AM EDT 20 mg Given 03/20/2020 9:23 AM EDT 20 mg predniSONE (Deltasone) tablet 40 mg Given 03/14/2020 8:38 AM EDT 40 mg 40 mg, Oral, 2 TIMES DAILY, 10 doses, First dose on Thu03/09/20 at 2100, Last dose on Thu03/14/20 at 0900, Routine Given 03/13/2020 8:05 PM EDT 40 mg Given 03/13/2020 8:09 AM EDT 40 mg predniSONE (Deltasone) tablet 40 mg Given 03/19/2020 9:37 AM EDT 40 mg 40 mg, Oral, DAILY, 5 doses, First dose on Rosa Elena 03/15/20 at 0900, Last dose on Thu03/19/20 at 0900, Routine Given 03/18/2020 9:01 AM EDT 40 mg Given 03/17/2020 8:39 AM EDT 40 mg propofoL (DIPRIVAN) 10 mg/mL infusion 1 dose, Starting Thu03/09/20 at 1112, Un til Thu03/09/20 at 1226, Emelia Ramos.: cabinet override, propofol (DIPRIVAN) Rate/Dose Verify 03/11/2020 8:00 30 mcg/kg/min 1 8.6 mL/hr infusion AM EDT 0-50 mcg/kg/min ? 103.6 kg (0-31.08 mL/hr, rounded to 0-31.1 mL/hr), Intravenous, at 0-31.1 mL/hr, CONTINUOUS, Starting Thu03/09/20 at 1445, Until Thu03/11/20 at 1616, Titrate to sedation level of RASS Goal (-)1 to 0 . Start at 20 mcg/kg/min, adjust rate by 10 mcg/kg/min every 3 minutes. Once stable, reassess patient every 30 minutes. Rate not to exceed 50 mcg/kg/minute. Change rate only after assessing and documenting RASS. Reassess sedation scores within 30 minutes after every rate change. If under sedated, increase rate by 10 mcg/kg/min. If over sedated, hold sedative until target RASS (-)1 to 0 achieved and then restart at 50% of previous rate. Call pump house operator if goal not achieved at maximum rate. If SAT is ordered and if patient meets criteria for Spontaneous Awakening Trial, titrate per protocol., Routine Rate/Dose Verify 03/10/2020 6:00 PM EDT 30 mcg/kg/min 18.6 mL/hr New Bag 03/10/2020 4:08 PM EDT 30 mcg/kg/min 18.6 mL/hr protein powder Given 03/11/2020 12:00 AM EDT 3 Scoops 3 Scoop, Per OG Tube, 5 TIMES DAILY, First dose on 03/10/20 at 1530, Until Discontinued, Routine Given 03/10/2020 8:00 PM EDT 3 Scoops rivaroxaban (Xarelto) tablet 20 mg Given 03/21/2020 4:07 PM EDT 20 mg 20 mg, Oral, DAILY, First dose (after last modification) on 03/10/20 at 0900, Until Discontinued, Routine Given 03/20/2020 4:05 PM EDT 20 mg Given 03/19/2020 9:37 AM EDT 20 mg senna-docusate (Pericolace) 8.6-50 mg per Given 2019 8:38 AM EDT 1 tablet tablet 1 tablet 1 tablet, Oral, DAILY, First dose on Thu03/13/20 at 0945, Until Discontinued, Routine Given 03/13/2020 9:05 AM EDT 1 tablet senna-docusate (Pericolace) 8.6-50 mg per Given 2019 9:04 AM EDT 2 tablets tablet 2 tablet 2 tablet, Oral, 2 TIMES DAILY, First dose (after last modification) on Thu03/14/20 at 2100, Until Discontinued, Routine Given 03/21/2020 9:11 PM EDT 2 tablets Given 03/21/2020 8:41 AM EDT 2 tablets simethicone (Mylicon) chewable tablet 40 mg Given 03/21/2020 9:14 PM EDT 40 mg 40 mg, Oral, EVERY 6 HOURS PRN, Starting Thu03/21/20 at 0654, Until Rosa Elena 03/22/20 at 1454, Cramping, Routine Given 03/21/2020 7:01 AM EDT 40 mg sodium chloride (OCEAN) 0.65 % nasal spr ay 1 spray 1 spray, Each Nare, 2 TIMES DAILY PRN, Starting 04/02 at 0939, Until Thu03/22/20 at 1454, Congestion, Routine sodium chloride tablet 1 g Given 03/22/2020 9:04 AM EDT 1 g 1 g, Oral, 3 TIMES DAILY, First dose on Thu03/18/20 at 1100, Until Discontinued, Routine Given 03/21/2020 9:10 PM EDT 1 g Given 03/21/2020 2:22 PM EDT 1 g sulfamethoxazole-trimethoprim New Bag 03/14/2020 9:11 388.5 mg 388.5 mL/hr (BACTRIM) 1 mg/mL IV in dextrose 5% AM EDT 388.5 mg 388.5 mg (15 mg/kg/day ? 103.6 kg), Intravenous, EVERY 6 HOURS SCHEDULED, 84 doses, First dose on Thu03/09/20 at 0000, Last dose on Thu03/29/20 at 2100, Administer over 60 Minutes, Dose in mg is based on trimethoprim component Please attempt to concentrate bag., Indication for (Active or Suspected): Other (See comment) New Bag 03/14/2020 2:59 AM EDT 388.5 mg 388.5 mL/hr New Bag 03/13/2020 10:32 PM EDT 388.5 mg 388.5 mL/hr sulfamethoxazole-trimethoprim DS (Bactrim Given 2019 6:41 AM EDT 3 tablets DS) 800-160 mg per tablet 3 tablet 3 tablet, Oral, 2 TIMES DAILY, 31 doses, First dose on Thu03/14/20 at 1400, Last dose on Thu03/29/20 at 1400, Routine Given 03/21/2020 1:38 PM EDT 3 tablets Given 03/21/2020 6:31 AM EDT 3 tablets sulfamethoxazole-trimethoprim DS (Bactrim Given 2019 9:11 PM EDT 4 tablets DS) 800-160 mg per tablet 4 tablet 4 tablet, Oral, NIGHTLY, 16 doses, First dose on Thu03/14/20 at 2200, Last dose on Thu03/29/20 at 2200, Routine Given 03/20/2020 9:12 PM EDT 4 tablets Given 03/19/2020 9:21 PM EDT 4 tablets tamsulosin (Flomax) capsule 0.4 mg Given 03/22/2020 9:04 AM EDT 0.4 mg 0.4 mg, Oral, DAILY, First dose on Thu03/09/20 at 0900, Until Discontinued, DO NOT CRUSH OR OPEN, Routine Given 03/21/2020 8:40 AM EDT 0.4 mg Given 03/20/2020 9:23 AM EDT 0.4 mg tube feeding diet New Bag 03/11/2020 12:00 AM EDT 40 mLs 40 mL/hr 900 mL, Per OG Tube, at 45 mL/hr, CONTINUOUS, Starting 03/10/20 at 1530, Until 03/11/20 at 1616, Administer flushes and check residuals per policy, New Bag 03/10/2020 8:00 PM EDT 20 mLs 20 mL/hr vancomycin (VANCOCIN) 2,500 mg New Bag 03/12/2020 1:00 AM EDT 2,500 mg 183.3 mL/hr in sodium chloride 0.9% 550 mL 2,500 mg, Intravenous, ONCE, 1 dose, 03/12/20 at 0100, Administer over 180 Minutes, Maximum infusion rate is 1 gram/hour. If flushing of the face, neck, upper body, arms, and/or back occurs decrease infusion rate by 50% to reduce the severity of symptoms. This medication may have an associated drug lab level. Please see MAR for scheduled level. Warning Vesicant/Irritant Medication , Indication for (Active or Suspected): Pneumonia ([facility]) documented in this encounter
--- OUTSIDE RECORDS SUMMARY | 2020-09-05 03:28 | XMS_ITS | Encounter Summary ---
:1955 Author Organization [facility] [place] [address] Care Team Providers Name Role Phone Virgen Constantino MD Primary Care Provider Reason for Referral Consultation (Urgent) Status Reason Specialty Diagnoses / Referred By Referred To Procedures Contact Contact Closed Surgical Pain and Spine Diagnoses Muscle pain Spinal stenosis of lumbar region with neurogenic [facility]audication [facility] Rosenda Acosta MD And Spine [facility] DR Chong Colbert RHEUMATOLOGY [place], [place] DEPT [id number] [place], [place] Phone: [phone] Encounter Details Date Type Department Care Team Description 01/30/2020 Orders Only Rheumatology at [facility] [place] Rosenda Faulkner Muscle pain; [facility] MD Karla Spinal stenosis of lumbar region [place] [id number] [place] [address] RHEUMATOLOGY DEP T [place], [place] [address] [phone] Social History Tobacco Use Types Packs/Day Years Used Date Former Smoker Smokeless Tobacco: Never Used Comments: Quit in 2017 Alcohol Use Drinks/Week oz/Week Comments Yes 14-21 Cans of beer 14.0 - 21.0 1 beer a day Alcohol Habits Answer Date Recorded How often do you have a drink containing 4 or more times a w [place] 08/15/2019 alcohol? How many drinks containing alcohol [...] Associated Diagnoses Order S chedule Referral to Spine Outpatient Referral Routine Muscle robert n Ordered: Center Spinal stenosis of 0 lumbar region with neurogenic claudication documented as of this encounter Visit Diagnoses Diagnosis Muscle pain Mylagia and myositis, unspecified Spinal stenosis of lumbar region with ne urogenic claudication Spinal stenosis, lumbar region, with julissa rogenic claudication documented in this encounter
--- OUTSIDE RECORDS SUMMARY | 2020-09-05 03:29 | XMS_ITS | Encounter Summary ---
:1955 Author Organization [place] [address] Care Team Providers Name Role Phone Virgen Constantino MD Primary Care Provider Reason for Visit Consultation (Routine) Status Reason Specialty Diagnoses / Referred By Referred To Procedures Contact Contact Closed Consult, Test Rheumatology Diagnoses Autoimmune necrotizing myopathy Leon Osuna, & MD Rosenda Haines MD [facility] DR CENTER NEUROLOGY DEPT. RHEUMATOLOGY [place] DEPT [address] [place] [address] Phone: [phone] Phone: Encounter Details Date Type Department Care Team Description 11/25/2019 Office Visit Rheumatology at [facility] Elda Méndez MD [facility] DR RHEUMATOLOGY [place] [address] [phone] Muscle weakness of [facility] Rosenda Faulkner MD [facility] RHEUMATOLOGY [place] [address] [phone] [place] [address] Social History Tobacco Use Types Packs/Day Years Used Date Former Smoker Smokeless Tobacco: Never Used Comments: Quit in 2017 Alcohol Use Drinks/Week oz/Week Comments Yes 14-21 Cans of beer 14.0 - 21.0 1 beer a day Alcohol Habits Answer Date Recorded How often do you have a drink containing 4 or more times a w [place] 08/15/2019 alcohol? How many drinks containing alcohol do you have 1 or 2 08/15/2019 on a typical day when you are drinking? How often do you have six or more drinks on one Never 08/15/2019 occasion? Sex Assigned at Date Recorded Not on file documented as of this encounter Last Filed Vital Signs Vital Sign Reading Time Taken Comments Blood Pressure 130/88 11/25/2019 8:37 AM EDT Pulse 83 11/25/2019 8:37 AM EDT Temperature 36.4 ??C (97.6 ??F) 11/25/2019 8:37 AM EDT Respiratory Rate - - Oxygen Saturation 96% 11/25/2019 8:37 AM EDT Inhaled Oxygen Concentration - - Weight 114.8 kg (253 lb) 11/25/2019 8:37 AM EDT Height 188 cm (6' 2) 11/25/2019 8:37 AM EDT Body Mass Index 32.48 11/25/2019 8:37 AM EDT documented in this encounter Patient Instructions Patient InstructionsRosenda Faulkner MD - 11/25/2019 9:00 AM EDT - Stop prednisone. - Start Methl prednisolone 24 mg orally daily. - Please get labs today at 3L. - If infectious labs are negative I will start Methotrexate 15 mg WEEKLY. Folic acid 1 mg orally daily. - Please take Calcium 1000 mg daily, Vitamin D 2000 IU daily. - Get DEXA scan through primary care doctor. documented in this encounter Progress Notes Elda Méndez MD - 11/25/2019 9:00 AM EDTI saw this patient with Dr. Faulkner and I agree with the details of the visit outlined in her note including history, PE and assessment and plan that was discussed with me at the time of the visit. Rosenda gomez MD - 11/25/2019 9:00 AM EDT Rheumatology Outpatient Consultation Visit: Reason for Consult: Jeison Cervantes is a 64 y.o. male who we are seeing at the request of Leon Osuna for evaluation of muscle fatigue, myositis PCP: Talon Constantino MD [address] [place] [id number] HPI: Jeison Cervantes is a 64 y.o. male as below presenting with chief complaint of muscle cramping and fatigue over the last 3 years. - Symptoms started 3 years ago- First with swelling in the left calf- US per report was unremarkable. Vascular eval, recommended stockings- wore it for couple of months. - Then cramping in Left calf progressed to left thigh and over time to Rt leg, reports some weaknessand soreness in his legs. Thinks it progressed to left shoulder, but not as worse as his lower extremities. - Had difficulty walking/ going upstairs, labored. Had to take frequent breaks. - [place]- EMG was inconclusive- CK was up, 900. - Was not on any supplements that he can think off. - He denies travel, infections, statins/niacin/fibrates/red yeast rice. 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 - He also mentions he has hx of multiple ticks on him through time, but has never test positive for Lyme. - He was referred from neurology [facility]- Work-up per neurology's notation so far includes myositis panel, double-stranded DNA, rheumatoid factor, SSA, SSB, that were all with normal limits were negative. Noted a positive MICHAEL of 1: 160. Also, CK elevated to 1012. - Patient also underwent EMG nerve conduction studies with overall impression- Active denervation isconfined to Left Gastrocnemius muscle and no active EP evidence of Myopathic process. - He also had an MRI of [...] was obtained and was negative as well. The patient underwent muscle biopsy on 12/16/[address] Leon esposito with biopsy site of the lowerextremity left. Per report Pathology was discussed with Dr. Basurto, path nondiagnostic but does show necrosing muscle fibers. 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 He was started on IV IG X 5 days in April 2019 And had 2 day infusion in May 2019. Patient received steroids with infusion in May. Patient reports he had the most improvement in muscle symptoms after the infusion but this wore off in a few days. Patient reports he does not think IVIG helped, but IV steroids likely abated his symptoms. IV IG was also cost prohibitive, and hence did not want to continue IV IG. He was seen in Neurology in Aug 2019 and was started on Prednisone taper starting at 30 mg PO daily and Cellcept 500 mg PO BID, the dose of which has been slowly up titrated in the past two months and currently up to 2000 mg PO daily. He felt symptomatically better in September with temporal CK trendingdown. He is currently on 20 mg Prednisone and feels muscle cramping and pain in lower extremities isslowly worsening. In the past two months symptoms seem worsening. Reports Crampness, tightness in both buttocks, back of the thighs, B/L Calves. No tingling/numbness. Wakes him from sleep occ. He denies any neck weakness. Denies any dysphonia, dysphagia,respiratory symptoms, visual disturbances. PFTs and TTE in the past year have been normal. Denies any new rash. Also he developed a LLE DVT in Aug 2019- is currently on Xarelto. ROS: (Positive in bold, otherwise reported as negative): Constitutional: Fevers, chills,unintentional weight loss CV: Chest pain, palpitations Pulm: RAYGOZA, wheezing, hemoptysis, coughs GI: N/V/D/C, abdominal pain, hematochezia : Hematuria, dysuria Derm: Rashes, photosensitivity, Raynaud's phenomenon HEENT: Oral ulcers (painful/painless), eye pain/redness, dry eyes, dry mouth Neuro: Seizures, Weakness (mainly b/l LE) Heme: Epistaxis, hx of VTE MSK: Arthrits/Arthralgia, joint swelling, myalgias Past Medical History: Past Medical History: Diagnosis Date ??? 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 Past Surgical History: Past Surgical History: Procedure Laterality Date ??? PRO BIOPSY MUSCLE DEEP Left 12/16/2018 BIOPSY OF MUSCLE, DEEP, LOWER EXTREMITY (WRVU 2.35) performed by Leon Osuna MD at [facility] Hernia repair Allergies: Cat dander; Dog dander; and Hay [grass pollen-bermuda, standard] Social History: Social History Tobacco Use ??? Smoking status: Former Smoker ??? Smokeless tobacco: Never Used ??? Tobacco comment: Quit in 2017 Substance Use Topics ??? Alcohol use: Yes Alcohol/week: 14.0 - 21.0 standard drinks Types: 14 - 21 Cans of beer per week Frequency: 4 or more times a week Drinks per session: 1 or 2 Binge frequency: Never Comment: 1 beer a day ??? Drug use: Never 45 PPD, quit in 2017. Alc use- 1 beer day. Drug use- none Family Hx: No other known family history of rheumatological conditions including, but not limited to RA, PsA, SLE, MCTD, Sjogren's, Scleroderma, gout/pseudogout Physical Examination: BP 130/88 Pulse 83 Temp 36.4 ??C (97.6 ??F) (Oral) Ht 188 cm (6' 2) Wt 114.8 kg (253 lb) SpO2 96% BMI 32.48 kg/m?? General: Well appearing, NAD HEENT: Mucous membranes are moist, no oral mucosal ulceration, sclera anicteric, no conjunctival injections Neck: Supple, no lymphadenopathy, full range of motion Cardiovascular: RRR, no m/r/g, normal S1/S2, 2+ radial artery pulses Lungs: CTA b/l no w/r/r Abdomen: Soft, nontender, nondistended Back: Nontender over the spine and SI joint areas Neuro: Alert and oriented x3. No focal weakness. Strength +5/5 throughout the bilateral UE and LEincluding testing for abduction of fingers, finger flexors, neck flexors. Patellar reflexes +2 symmetric and equal. Sit to Stand testing 10 Skin: no obvious rashes or lesions noted in neck, face, hands, forearms, lower legs, back, upper chest Nails: no nail pitting or onycholysis, nail fold capillaries are grossly normal. 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, no gross deformities, no dactylitis -Hips: intact ROM, no tenderness over the lateral hip, gluteal area or anterior hips, -Knees: intact FROM, no effusions of the knee joint, no warmth, no tenderness, no erythema -Ankles: intact ROM, non-tender, no effusions/warmth -Feet: no MTP compression tenderness, no evidence of synovitis/enthesitis, no heal compression tenderness, no achilles tendon tenderness, no dactylitis Labs: CBCs: Recent Labs 11/21/19 0829 10/17/19 WBC 7.6 7.07 HGB 15.1 15.7 HCT 45.8 47.0 PLATELET 227 203 CMP components: Recent Labs 10/17/19 CREATININE 472* No results for input(s): NA, K, CL, CO2, BUN, CREATININE in the last 168 hours. Recent Labs 11/21/19 0829 AST 40* ALT 33 ALKPHOS 37* BILITOT 0.5 BILIDIR 0.1 No results for input(s): CALCIUM, PHOS in the last 168 hours. Urine Protein:Creatinine Ratio: No results found for: UPROTCREAT Inflammatory Markers Trend: No results found for: SEDRATE, CRP Uric Acid: No results found for: URICACID CPK: CK, Total (unit/L) Date Value 11/21/2019 700 (H) 09/15/2019 565 (H) 08/15/2019 1,231 (H) 03/29/2019 1,189 (H) 10/26/2018 1,012 (H) UT=063 (from outside labs) MICHAEL (no units) Date Value 10/26/2018 Pos, See Titer (A) RF (IU/mL) Date Value 10/26/2018 <10 Outside laboratory results from [facility] includes: Folate=30.6 Vitamin G74=286 QX=471 ESR=15 Hemoglobin A1c=6.0 Lyme negative Imaging: MRI Myositis (11/25/2018): FINDINGS: ?? Pelvis SOFT TISSUES: No subcutaneous edema or fascial edema. No fluid collection seen. Heterogeneous enlarged prostate gland, 60 x 59 mm with central gland hypertrophy, series 100 image 8. MUSCLES: Normal muscle signal. No fatty atrophy. ?? Thigh SOFT TISSUES: No subcutaneous edema or fascial edema. Ferromagnetic artifact in anterior mid calf, series 5006 image 28. ?? MUSCLES: Left long head of biceps-the distal half of the muscle has bright STIR signal, series 100 image 51. Right Normal muscle signal and no fatty atrophy. ?? Calfs SOFT TISSUES: Bilateral pretibial minimal subcutaneous edema. Left Linear bright STIR signal in the deep fascia of the lateral calf, series 5006 image 21 represents fascial fluid or fasciitis. Right Minimal perifascial edema in the lateral calf. MUSCLES: 1. Bilateral Soleus- bright STIR signal diffuse on the left and localized to the medial fibers of the right. There is linear fatty infiltration of the left psoas muscle and normal T1 signal on the right. Findings represent myositis of varying age. 2. Bilateral Medial head of the gastrocnemius muscle- bright STIR signal more extensive on the left. Minimal bilateral fatty infiltration. 3. Left Flexor pollicis longus muscle-bright STIR signal and mild fatty infiltration. 4. Left extensor digitorum longus muscle near the ankle-normal T1 signal and bright STIR signal, series 5006 image 56. ?? OSSEOUS STRUCTURES: Normal marrow signal. ?? TENDONS: Hamstring-left slightly bright T2 signal at insertion, series 100-12 resembles insertional tendinopathy. No peritendinous edema. ?? IMPRESSION 1. 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 2. Presence of fatty infiltration of several left calf muscles indicates acute on chronic process. 3. Minimal fasciitis in the left lateral calf. Bx Paraffin embedded fragments of skeletal muscle stained with H&E show wide variation ??of fiber size and shape. ??There are groups of small angulated fibers and atrophic ??fibers with nuclear chains. ?? There are scattered necrotic fibers and some ??macrophage aggregates. ??Rare pale fibers with loss of the normal striated appearance ??and coarsely clumped internal structures are noted.. ??There are occasional central ??nuclei and rare fiber splitting. ??There is no vasculitis or extensive leukocyte ??infiltration. Assessment: Jeison Cervantes is a 64 y.o. male chief complaint of muscle weakness in the bilateral LE (starting in the lower legs and moving proximally) with some involvement reported in the bilateral proximal UE (that has since resolved), sparing the muscles of the hands, forearms, neck, eyes, pharyngeal musclesthat came on gradually about ~2 year ago with slow progression since. Weakness is primary sx with soreness/myalgia. ROS as above negative for lack of joint pains, sores, photosensitivity, rashes, skinchanges, nailfold abnormalities, eye inflammation hx. Labs overall with +MICHAEL of 1:160, initially presented with elevated CK ~ 1200 and a MRI of the LE that showed myositis of the calf muscles. Of note,EMG has been done twice and overall not overtly revealing and myositis panel completed was overall negative. Myositis panel and Anti-CM 1 a was obtained and was negative. Muscle biopsy on 12/16/[address] Leon esposito, Per report Pathology was discussed with Dr. Basurto, path nondiagnostic but does show necrosing muscle fibers. Dr. Basurto felt it looked most consistent with a statin myopathy butthe patient has never taken statins. 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 He was initially treated with IVIG, which the patient thought was not effective and was also cost prohibitive. Patient reports he had the most improvement in muscle symptoms after he received IV solumedrol in May, effect lasted for a few days and then wore off. He was seen in Neurology in Aug 2019 and was started on Prednisone taper starting at 30 mg PO daily and Cellcept 500 mg PO BID, the dose of which has been slowly up titrated in the past two months and currently up to 2000 mg PO daily. He felt symptomatically better in September with temporal CK trending down. He is currently on 20 mg Prednisone and feels muscle cramping and pain in lower extremities is slowly worsening. He has been refe rred to Rheumatology for assistance for management for the same. Clinical case discussed at the Muscle meeting recently. There is consensus that he has had incomplete resolution of symptoms on the current therapy, and will benefit from adding oral DMARD Methotrexateto his regimen. I will obtain labs including Infectious labs as detailed below. If negative, will add Methotrexate 15 mg weekly and daily folic acid. Also will switch Steroid to Methylprednisolone to 24 mg daily and will slowly wean after DMARD started. Benefits, risks and potential side effects of methotrexate were discussed including fatigue, mouth sores, nausea, hair thinning, liver and bone marrow effects requiring q 3 month labs to monitor for drug toxicity, rare allergic pulmonary reaction. Alcohol intake should be limited. It takes 6-8 weeks for methotrexate to work. It was explained that this drug is taken once per WEEK, and daily folic acidstarting a 1 mg per day can help counter the side effects. Plan: - Check HMG Co Reductase Antibody - Check Infectious Labs- Hep B, HIV, Quant TB. ( Hep C Ab test done through PCP office last year- was negative) - Continue Cellcept 1000 mg PO BID - Stop Prednisone, Switch to Medrol 24 mg PO daily - If infectious labs are negative, we will start Methotrexate 15 mg weekly, Folic acid 1 mg PO daily - Follow up with Neurology as scheduled. - Monitor for any progression of muscle weakness/ Swallowing difficulty/ Worsening SOB - seek urgentmedical attention if any of these symptoms occur Follow up in 6 weeks. Patient was seen and discussed with Dr. Méndez. Case also discussed at muscle meeting with Rheumatology and Neurology team. Rosenda Faulkner MD Rheumatology Fellow- PGY 5 CC: Talon Constantino MD documented in this encounter Plan of Treatment Not on filedocumented as of this encounter Procedures Procedure Name Priority Date/Time Associated Comments Diagnosis MISCELLANEOUS LAB Routine 11/25/2019 11:06 Muscle weakness of Results for this REQUEST AM EDT lower extremity procedure ar e in the results section. MISC BLAIR TEST-BLAIR Routine 11/25/2019 11:06 Resu lts for this AM EDT procedure are i n the results section. HC QUANTIFERON Routine 11/25/2019 11:06 Muscle weakness of Res ults for this AM EDT lower extremity procedure ar e in the results section. HC HEPATITIS B CORE AB Routine 11/25/2019 11:06 Muscle weaknes s of Results for this AM EDT lower extremity procedure ar e in the results section. HC VENIPUNCTURE Routine 11/25/2019 11:06 Muscle weakness of Re sults for this AM EDT lower extremity procedure ar e in the results section. HC HEPATITIS B SURFACE Routine 11/25/2019 11:06 Muscle weaknes s of Results for this AB AM EDT lower extremity procedure ar e in the results section. HC HEPATITIS B SURFACE Routine 11/25/2019 11:06 Muscle weaknes s of Results for this AG AM EDT lower extremity procedure ar e in the results section. BASIC METABOLIC PANEL Routine 11/25/2019 11:06 Muscle weakness of Results for this (NON-FASTING) AM EDT lower extremity procedure a re in the results section. documented in this encounter Results [facility] Test-Blair (11/25/2019 11:06 AM EDT) [facility] MENG AGU[facility]A Test ? Result ?Flag ??Unit ??RefValue [facility] HMG-CoA KARLA, S ? <20.0 ? U/mL ??<20.0 ? ADDITIONAL INFORMATION------- ?This test was developed and its performance fransisco Lionical ?determined by [facility] in a manner consistent with CLIA ?requirements. This test has not been cleared or approved by ?the U.S. Food and Drug Administration. ?Test Performed by: ?[facility] - [facility] ?[address] [place] [address] ?Operations Consultant: Matthew Song M.D. Ph.D.; CLIA # [id number] Specimen Blood Resulting Agency Comment Spec In Lab Performing Organization Address City/State/[facility] Phone Number [place] [phone] H[facility]PITAL LABORATORY Basic Metabolic Panel (non-fasting) (11/25/2019 11:06 AM EDT) Glucose Lvl 147Comment: Diabetes: 65 - 199 [facility] >=200 mg/dL plus mg/dL [facility] symptoms LABORATORY BUN 18 10 - [address] [facility] mg/dL [facility] Creatinine 0.89 0.80 - 1.[address] [facility] mg/dL [facility] Sodium 137 135 - [address] [facility] mmol/L [facility] Potassium 4.3 3.5 - 5.0 [facility] Comment: mmol/L [facility] Please note: ??Patients with WBC >100,000 may welch ve falsely elevated Potassium LABORATORY levels. ??For accurate Potassium quantification in the se patients send serum separator tube (gold top) fo r subsequent determinations. ??Contact the Clinical Chemistry Laboratory if there are any questions. Chloride 101 98 - [address] [facility] [facility] mmol/L [facility] CO2 24 22 - 31 [facility] mmol/L [facility] Anion Gap 12 5 - [address] [facility] mmol/L [facility] Calcium 9.8 8.5 - 10.[address] [facility] mg/dL [facility] Estimated GFR 90 >=60 [facility] Comment: mL/min/1.73 [facility] The eGFR was calculated using the CKD-EPI equati on. As with all creatinine m?? LABORATORY based estimates of kidney function, eGFR values calcul ated with the CKD-EPI equation are not accurate in patients with acute kidne y failure, extremes of body mass or the acutely ill. [email or web address] eGFR 105 >=60 [facility] [place] Comment: mL/min/1.73 [facility] The eGFR was calculated using the CKD-EPI equati on. As with all creatinine m?? LABORATORY based estimates of kidney function, eGFR values calcul ated with the CKD-EPI equation are not accurate in patients with acute kidne y failure, extremes of body mass or the acutely ill. [email or web address] Specimen Blood Resulting Agency Comment Spec In Lab Performing Organization Address City/[facility]/Zipcode Phone Number [address] LABORATORY Miscellaneous Lab request (11/25/2019 11:06 AM EDT) Pathologist Sig nature Misc Lab Result Request received MENG ROMEO in lab. [facility] Specimen Blood Resulting Agency Comment Spec In Lab Performing Organization Address City/[facility]/Zipcode Phone Number [address] LABORATORY Hepatitis B Surface Antigen (11/25/2019 11:06 AM EDT) Pathologist Sig nature HepB Surface Ag Negative Negative [facility] Specimen Blood Resulting Agency Comment Spec In Lab Performing Organization Address City/[facility] Phone Number [address] LABORATORY Hepatitis B Surface Antibody (11/25/2019 11:06 AM EDT) HepB Surface Ab 14.2 IU/L [facility] Quant Comment: [facility] HepB Surface Ab Quant: LABORATORY Unvaccinated: < 8.5 IU/L Vaccinated: > 11.5 IU/L HepB Surface Ab Positive [facility]ENG ROMEO Comment: [facility] Patient is considered to be immune to HBV infection. LABORATORY Expected Results: Vaccinated: Positive Unvaccinated: Negative Specimen Blood Resulting Agency Comment Spec In Lab Performing Organization Address City/[facility]/Zipcode Phone Number [address] LABORATORY Hepatitis B Core Antibody, Total (11/25/2019 11:06 AM EDT) Pathologist Sig nature Hep B Core Ab Negative Negative [facility] Specimen Blood Resulting Agency Comment Spec In Lab Performing Organization Address City/State/Zipcode Phone Number [facility] Filemon Walker[address] LABORATORY QuantiFERON-TB Gold (11/25/2019 11:06 AM EDT) QFT Nil 0.010 IU/mL [facility] QFT TB Ag1-Nil 0.000 IU/mL [facility] QFT TB Ag2-Nil 0.000 IU/mL [facility] QFT Mitogen-Nil >10.000 IU/mL [facility] Quantiferon TB Negative Negative [facility] Quantiferon TB M. tuberculosis infection NOT likely [place] [facility] [place] A negative specimen should h ave a TB1 Ag minus Nil value and TB2 Ag minus Nil MEMORIAL value of less than 0.35 IU/mL OR a TB1 Ag minus Nil or TB2 Ag minus Nil value HOSPITAL greater than or equal to 0.35 IU/mL AND a TB Ag minus Nil value from the same LABORATORY tube of less than 25% of the Nil value. A negative spe cimen must also have a mitogen minus Nil value greater than or equal to 0.5 I U/mL. A negative QFT-Plus result d oes not preclude the possibility of M. tuberculosis infection. False negative re sults can occur due to stage of infection (specimen obtained prior to the development of immune response), co-morbid conditions which affect immune function, or other immunological f actors. Comment: The performance of the QFT-Plus assay has not be en extensively evaluated with specimens from the following individuals: Individuals who have impaired or altered immune functi ons, such as those who have HIV infection or AIDS, those who have transplanta tion managed with immunosuppressive treatment or others who receive immu nosuppressive drugs (e.g., corticosteroids, meth otrexate, azathioprine, cancer chemotherapy), those who have other clinical conditions, such as diabetes, silicosis, chronic renal failure, and hematological disorders (e.g., leuk emia and lymphomas), or those with other specific malignancies (e.g., carcinoma of t he head or neck and lung). Individuals younger than age 17 years women. Diagnosis of, or the exclusion of tuberculosis disease , and assessment of Latent Tuberculosis Infectio n (LTBI) requires a combination of epidemiological, historical, Medical and diagnostic findings that should be taken into account when interpreting QFT-Plus results. Specimen Blood Resulting Agency Comment Spec In Lab Performing Organization Address City/[facility]/Zipcode Phone Number [address] LABORATORY HIV Screen, 4th Generation ([facility]/APD) (11/25/2019 11:06 AM EDT) HIV-1/2 Ab and Ag Negative Negative [facility] Comment: [facility] This 4th Generation HIV test screens for the presence of the HIV-1 p24 antigen LABORATORY as well as antibodies reactive against H IV-1 and HIV-2. A negative screen does not rule out an acute HIV infection. If acute HIV infe ction is suspected, testing should be repeated in 2 - 3 weeks or HIV nucle ic acid testing performed. Specimen Blood Resulting Agency Comment Spec In Lab Performing Organization Address City/[facility]/Zipcode Phone Number [address] LABORATORY documented in this encounter Visit Diagnoses Diagnosis Muscle weakness of lower extremity Muscle weakness (generalized) documented in this encounter
--- OUTSIDE RECORDS SUMMARY | 2020-09-05 03:29 | XMS_ITS | Encounter Summary ---
:1955 Author Organization [facility] [place] [address] Care Team Providers Name Role Phone Virgen Constantino MD Primary Care Provider Encounter Details Date Type Department Care Team Description 01/23/2020 [place] [facility] [place] [address] Social History Tobacco Use Types Packs/Day Years Used Date Former Smoker Smokeless Tobacco: Never Used Comments: Quit in 2017 Alcohol Use Drinks/Week oz/Week Comments Yes 14-21 Cans of beer 14.0 - 21.0 1 beer a day Alcohol Habits Answer Date Recorded How often do you have a drink containing 4 or more times a w [place] 08/15/2019 alcohol? How many drinks containing alcohol do you have 1 or 2 08/15/2019 on a typical day when you are drinking? How often do you have six or more drinks on one Never 08/15/2019 occasion? Sex Assigned at Date Recorded Not on file documented as of this encounter Medications at Time of Discharge Medication Sig Dispensed Refills Start Date End Date Xarelto 20 mg Tablet Take 20 mg by 0 10/16/2019 mouth daily. tamsulosin (FLOMAX) 0.4 mg Take 0.8 mg by 0 Capsule mouth daily. ibuprofen (ADVIL;MOTRIN) 400 Take 400 mg by 0 mg Tablet mouth every 6 hours as needed for Pain. folic acid (Folvite) 1 mg Take 1 tablet by 90 tablet 3 11/1308/30/2020 Tablet mouth daily. metHOTREXate 2.5 mg Tablet Take 6 tablets 24 tablet 3 12/0403/22/2020 by mouth once a week. methylPREDNISolone (Medrol) Take 6 tablets 120 tablet 3 11/1202/07/2020 4 mg Tablet by mouth daily. mycophenolate (CELLCEPT) 500 Take 2 tablets 120 tablet 5 10/201903/22/2020 mg TabletIndications: by mouth 2 times Necrotizing myopathy daily. diphenhydrAMINE-acetaminophe Take 1 tablet by 0 02/07/2020 n (TYLENOL PM) 25-500 mg mouth nightly as Tablet needed. melatonin 3 mg Tablet Take 6 mg by 0 0 02/07/2020 mouth nightly as needed. pectin/vit B6/mins Take 1 tablet by 0 02/07/2020 4/c.vinegar (APPLE CIDER mouth daily. VINEGAR COMPLEX ORAL) multivitamin with minerals Take 1 tablet by 0 02/07/2020 and lutein Tablet mouth daily. documented as of this encounter Procedure Notes Alex Crews MD - 01/23/2020 5:34 PM EDTAssociated Order(s): PULMONARY FUNCTION TESTFEV1, FVC, and FEV1/FVC are normal. Lung volumes, including TLC, are normal. Diffusing capacity is normal. Oxygen saturation on room air at rest is normal. The MIP is normal; the MEP is normal. Impression: Normal spirometry, lung volumes, diffusing capacity, and maximal respiratory pressures. documented in this encounter Plan of Treatment Not on filedocumented as of this encounter Procedures Procedure Name Priority Date/Time Associated Diagnosis Comme nts PULMONARY FUNCTION Routine 01/23/2020 5:34 PM Muscle weakness of Results for this TEST EDT lower extremity procedure ar e in the results section. documented in this encounter Results Pulmonary Function Testing (01/23/2020 5:34 PM EDT) Narrative Performed At This result has an attachment that is no t available. Alex Crews MD ? 01/23/2020 ??5:35 PM FEV1, FVC, and FEV1/FVC are normal. ??Lung volumes, in cluding TLC, are normal. ?? Diffusing capacity is normal. ??Oxygen saturation on room air at rest is normal. ??The MIP is normal; the M EP is normal. Impression: ??Normal spirometry, lung volumes, diffusi ng capacity, and maximal respiratory pressures. ?? documented in this encounter Visit Diagnoses Diagnosis Muscle weakness of lower extremity Muscle weakness (generalized) documented in this encounter
--- OUTSIDE RECORDS SUMMARY | 2020-09-05 03:29 | XMS_ITS | Encounter Summary ---
:1955 Author Organization [place] [address] Care Team Providers Name Role Phone Virgen Constantino MD Primary Care Provider Reason for Visit Reason Onset Date Comments Other 01/11/2019 Encounter Details Date Type Department Care Team Description 01/11/2019 Telephone Neurology at [facility] [place] Leon Osuna MD [facility] [place] [address] NEUROLOGY DEPT. [phone] [place], [place] [address] [phone] Social History Tobacco Use Types Packs/Day Years Used Date Former Smoker Smokeless Tobacco: Never Used Comments: Quit in 2017 Alcohol Use Drinks/Week oz/Week Comments Yes 14-21 Cans of beer 14.0 - 21.0 2-3 beers robert ly Sex Assigned at Date Recorded Not on file documented as of this encounter Miscellaneous Notes Telephone Encounter - Snehal Best RN - 01/12/2019 12:34 PM EDT Leon Osuna MD Muir, Carmen A, RN Caller: Unspecified (Yesterday, ??1:20 PM) ?? I spoke with Yuri Basurto. He is still working on it. The muscle is definitely abnormal, but so far no definitive diagnosis. E Pt notified, thankful for update. elephone Encounter - Camilla Lee - 01/11/2019 1:20 PM EDTClinical Intermediate Card Tender Message Caller: self If not Pt / Relation to pt: Call back number: [phone] Best time to reach caller: any Reason for call: Lab/Test Results Results being requested: Muscle biopsy Where were tab/test done: here When were lab/test done: 12/16 Additional information or questions for the nurse: Pt aware that it can take 6-8 weeks to receive the pathology report Disposition of Call: routine message to nurse documented in this encounter Plan of Treatment Not on filedocumented as of this encounter Visit Diagnoses Not on filedocumented in this encounter
--- OUTSIDE RECORDS SUMMARY | 2020-09-05 03:29 | XMS_ITS | Encounter Summary ---
:1955 Author Organization [facility] [address] Care Team Providers Name Role Phone Virgen Constantino MD Primary Care Provider Encounter Details Date Type Department Care Team Description 01/23/2020 Laboratory Appointment Lab [facility] Muscle weakness of [facility] [place] [id number] Social History Tobacco Use Types Packs/Day Years Used Date Former Smoker Smokeless Tobacco: Never Used Comments: Quit in 2017 Alcohol Use Drinks/Week oz/Week Comments Yes 14-21 Cans of beer 14.0 - 21.0 1 beer a day Alcohol Habits Answer Date Recorded How often do you have a drink containing 4 or more times a w nez perce 08/15/2019 alcohol? How many drinks containing alcohol [...] Associated Comments Diagnosis HC C-REACTIVE PROTEIN Routine 01/23/2020 8:53 Muscle weakness of Results for this AM EDT lower extremity procedure ar e in the results section. TPMT GENETICS Routine 01/23/2020 8:53 Results fo r this AM EDT procedure are i n the results section. HC ESR-SEDIMENTATION Routine 01/23/2020 8:53 Muscle weakness of Results for this RATE, BLOOD AM EDT lower extremity procedure ar e in the results section. HC CREATINE Routine 01/23/2020 8:53 Muscle weakness of Resul ts for this PHOSPHOKINASE, SERUM AM EDT lower extremity proc edure are in the results section. COMPREHENSIVE Routine 01/23/2020 8:53 Muscle weakness of Resu lts for this METABOLIC PANEL AM EDT lower extremity procedure are in (NON-FASTING) the results section. documented in this encounter Results TPMT Genetics (01/23/2020 8:53 AM EDT) Pathologist Sig nature TPMT Genetics See Scan Report [facility] LABORATORY Specimen Blood Narrative Performed At This result has an attachment that is no t available. Resulting Agency Comment Spec In Lab Performing Organization Address City/[facility]/Zipcode Phone Number [address] LABORATORY CK (01/23/2020 8:53 AM EDT) Pathologist Sig kam CK, Total 342 (H) 0 - 200 unit/L [facility] Specimen Blood Resulting Agency Comment Spec In Lab Performing Organization Address City/[facility] Phone Number [address] LABORATORY Comprehensive metabolic panel (non-fasting) (01/23/2020 8:53 AM EDT) Glucose Lvl 170Comment: Diabetes: 65 - 199 [facility]200 mg/dL plus mg/dL [facility] symptoms LABORATORY BUN 24 (H) 10 - 20 [facility] mg/dL [facility] Creatinine 0.83 0.80 - 1.50 [facility] mg/dL [facility] Sodium 138 135 - 145 [facility] mmol/L [facility] Potassium 4.5 3.5 - 5.0 [facility] Comment: mmol/L [facility] Please note: ??Patients with WBC >100,000 may welch ve falsely elevated Potassium LABORATORY levels. ??For accurate Potassium quantification in the se patients send serum separator tube (gold top) fo r subsequent determinations. ??Contact the Clinical Chemistry Laboratory if there are any questions. Chloride 97 (L) 98 - 107 [facility] mmol/L [facility] CO2 29 22 - 31 [facility] mmol/L [facility] Anion Gap 12 5 - 15 [facility] mmol/L [facility] Calcium 9.7 8.5 - 10.5 [facility] mg/dL [facility] Total Protein 6.1 6.1 - 8.0 [facility] gm/dL [facility] Albumin 4.0 3.2 - 5.2 [facility] gm/dL [facility] AST 37 0 - 39 [facility] unit/L [facility] ALT 78 (H) 0 - 55 [facility] unit/L [facility] Alk Phos 37 (L) 40 - 130 [facility] unit/L [facility] Total Bilirubin 0.7 0.2 - 1.3 [facility] mg/dL [facility] Estimated GFR 93 >=60 [facility] Comment: mL/min/1.73 [facility] The eGFR was calculated using the CKD-EPI equati on. As with all creatinine m?? LABORATORY based estimates of kidney function, eGFR values calcul ated with the CKD-EPI equation are not accurate in patients with acute kidne y failure, extremes of body mass or the acutely ill. http://[facility]/[employer] eGFR 108 >=60 [facility] [place] Comment: mL/min/1.73 [facility] The eGFR was calculated using the CKD-EPI equati on. As with all creatinine m?? LABORATORY based estimates of kidney function, eGFR values calcul ated with the CKD-EPI equation are not accurate in patients with acute kidne y failure, extremes of body mass or the acutely ill. http://[facility] TAHLEQUAHnkf Specimen Blood Resulting Agency Comment Spec In Lab Performing Organization Address City/[facility]/Zipcode Phone Number [address] LABORATORY Sedimentation rate (01/23/2020 8:53 AM EDT) Pathologist Sig nature Sed Rate 13 2 - 37 mm/hr [facility] Comment: [facility] Effective August 24, 2019 new capillary photom etric technology has resulted LABORATORY in a change in reference ranges. It is recommended moni t each ESR result be reviewed with its own age appropriate reference range. Specimen Blood Resulting Agency Comment Spec In Lab Performing Organization Address City/[facility]/Zipcode Phone Number [address] LABORATORY CRP, acute inflammation (01/23/2020 8:53 AM EDT) Pathologist Sig nature CRP 1.8 <=4.9 mg/L [facility] Specimen Blood Resulting Agency Comment Spec In Lab Performing Organization Address City/State/Zipcode Phone Number [place], [place] [address] [facility]PITAL LABORATORY documented in this encounter Visit Diagnoses Diagnosis Muscle weakness of lower extremity Muscle weakness (generalized) documented in this encounter
--- OUTSIDE RECORDS SUMMARY | 2020-09-05 03:29 | XMS_ITS | Encounter Summary ---
:1955 Author Organization [facility] [place] [address] Care Team Providers Name Role Phone Virgen Constantino MD Primary Care Provider Encounter Details Date Type Department Care Team Description 01/17/2020 [place] [facility] [place] [facility] [place] [address] Social History Tobacco Use Types Packs/Day Years Used Date Former Smoker Smokeless Tobacco: Never Used Comments: Quit in 2017 Alcohol Use Drinks/Week oz/Week Comments Yes 14-21 Cans of beer 14.0 - 21.0 1 beer a day Alcohol Habits Answer Date Recorded How often do you have a drink containing 4 or more times a w [place] 08/15/2019 alcohol? How many drinks containing alcohol do you have 1 or 2 08/15/2019 on a typical day when you are drinking? How often do you have six or more drinks on one Never 08/15/2019 occasion? Sex Assigned at Date Recorded Not on file documented as of this encounter Miscellaneous Notes Telephone Encounter - Keya Arteaga - 01/17/2020 10:28 AM EDTPt returns call asking to be seen in person. Sent msg to provider and will call him back w/answer Telephone Encounter - Keya Arteaga - 01/17/2020 9:45 AM EDTLm for pt to change appt to virtual. Pt must confirm change. Sending letter documented in this encounter Plan of Treatment Not on filedocumented as of this encounter Visit Diagnoses Not on filedocumented in this encounter
--- OUTSIDE RECORDS SUMMARY | 2020-09-05 03:29 | XMS_ITS | Encounter Summary ---
:1955 Author Organization [facility] [place] [address] Care Team Providers Name Role Phone Virgen Constantino MD Primary Care Provider Encounter Details Date Type Department Care Team Description 10/26/2018 Hospital [place] [facility] [place], Muscle fatigue [address] [place] [address] [place] [address] [facility] [phone] NEUROLOGY DEPT. [place], [place] [address] [phone] Social History Tobacco Use Types Packs/Day Years Used Date Former Smoker Smokeless Tobacco: Never Used Comments: Quit in 2017 Alcohol Use Drinks/Week oz/Week Comments Yes 2-3 beers daily Sex Assigned at Date Recorded Not on file documented as of this encounter Medications at Time of Discharge Medication Sig Dispensed Refills Start Date End Date ibuprofen (ADVIL;MOTRIN) Take 400 mg by mouth 0 400 mg Tablet every 6 hours as needed for Pain. augmented betamethasone Apply topically 50 g 1 018 11/25/2018 dipropionate twice daily for two (DIPROLENE-AF) 0.05 % weeks to the left Cream lower early, then take one week off and repeat if needed. documented as of this encounter Plan of Treatment Not on filedocumented as of this encounter Procedures Procedure Name Priority Date/Time Associated Diagnosis Comme nts XR FACIAL BONES Routine 10/26/2018 2:44 PM Muscle fatigue Res ults for this LESS THAN 3 VIEWS EST procedure are in the results section. documented in this encounter Results XR Facial Bones less than 3 views (10/26/2018 2:44 PM EST) Specimen Impressions Performed At No radiopaque foreign body in the orbits . AMARJIT Thank you for letting us participate in the care of is patient. For questions regarding this report, please contact the number below . ? Electronically signed by: YARY Oconnell [facility] ([phone]), at 10/26/2018 3:18 PM Narrative Performed At EXAMINATION: XR FACIAL BONES LESS THAN 3 VIEWS YARY OCASIO CLINICAL HISTORY: r/o shrapnel, in prep for mri TECHNIQUE: 2 views of facial bones COMPARISON: None FINDINGS: No radiopaque foreign body in the orbits . No osseous abnormality. Procedure Note Department, Radiology - 10/26/2018 3:23 PM EST EXAMINATION: XR FACIAL BONES LESS THAN 3 VIEWS CLINICAL HISTORY: r/o shrapnel, in prep for mri TECHNIQUE: 2 views of facial bones COMPARISON: None FINDINGS: No radiopaque foreign body in the orbits . No osseous abnormality. IMPRESSION No radiopaque foreign body in the orbits . Thank you for letting us participate in the care of this patient. For questions regarding this report, please contact [facility] number below. Performing Organization Address City/State/Zipcode Phone Number AMARJIT [place], [place] documented in this encounter Visit Diagnoses Diagnosis Muscle fatigue Other musculoskeletal symptoms referable to limbs documented in this encounter
--- OUTSIDE RECORDS SUMMARY | 2020-09-05 03:29 | XMS_ITS | Encounter Summary ---
:1955 Author Organization [facility] [place] [address] Care Team Providers Name Role Phone Virgen Constantino MD Primary Care Provider Reason for Visit Reason Onset Date Comments Prior Authorization 07/06/2019 IVIG (OUTSIDE) APPRO JARED 04/14/19-07/15/19 (3 VISITS) Encounter Details Date Type Department Care Team Description 07/06/2019 Telephone Neurology [place] [facility] [place] Leon Osuna, Prior Authorization [facility] (IVIG (OUTSIDE) APPROVED [facility] 04/14/19-07/15/19 ([address] [place] [address] [address] VISITS)) [phone] NEUR[address] DEPT. [place], [place] [address] [phone] Social History Tobacco Use Types Packs/Day Years Used Date Former Smoker Smokeless Tobacco: Never Used Comments: Quit in 2017 Alcohol Use Drinks/Week oz/Week Comments Yes 14-21 Cans of beer 14.0 - 21.0 2-3 beers robert ly Sex Assigned at Date Recorded Not on file documented as of this encounter Miscellaneous Notes Telephone Encounter - Rashmi Mott Nuzhat - 07/08/2019 10:12 AM EDTHESARITA RETURNED CALL. 3 INFUSIONS WERE COVERED FOR THIS TIME PERIOD. 04/14/19-07/15/19. (THIS MEANS May (06/06) INFUSIONWILL BE COVERED. AUTH NUMBER REMAINS THE SAME: [id number] ANY FUTURE INFUSIONS WILL NEED, PLAN OF CARE WELL A NOTE STATING HOW PT IS RESPONDING TO TREATMENT, FAXED TO INSURANCE. [phone]. elephone Encounter - Rashmi Mott - 07/07/2019 3:25 PM EDTCALLED INSURANCE. SPOKE WITH LADY. SHE ADVISED THAT PA WAS ONLY GOOD FOR ONE VISIT. SHE TRANSFERRED ME TO [facility] TO HAVE ADDITIONAL VISITS ADDED TO AUTH. LMOVM. LEFT REFERENCE #, PTS , NAME, MY NAME, PHONE NUMBER, AND WHAT WAS NEEDED. elephone Encounter - Michaela Michele - 07/06/2019 2:52 PM EDTClinical [place] Message Caller: Dali If not Pt / Relation to pt: [place] Call back Number: [phone] ext [phone] Reason for call: States the pt has not been authorized for 06/06 infusion he received and any future appts. Message/information for the nurse: States there was no PA done for pts IVIG for 06/06 so it was denied. States that they need a letter for medical necessity for that appt and any future appt. Disposition of Call: ?? Routine Message sent to the Nurse documented in this encounter Plan of Treatment Not on filedocumented as of this encounter Visit Diagnoses Not on filedocumented in this encounter
--- OUTSIDE RECORDS SUMMARY | 2020-09-05 03:29 | XMS_ITS | Encounter Summary ---
:1955 Author Organization [facility] [place] [address] Care Team Providers Name Role Phone Virgen Constantino MD Primary Care Provider Reason for Visit Reason Onset Date Comments Other 10/31/2019 Encounter Details Date Type Department Care Team Description 10/31/2019 Telephone Neurology at [facility] [place] Leon Osuna MD [facility] [place] [address] NEUROLOGY DEPT. [phone] [place], [place] [address] [phone] Social History Tobacco Use Types Packs/Day Years Used Date Former Smoker Smokeless Tobacco: Never Used Comments: Quit in 2017 Alcohol Use Drinks/Week oz/Week Comments Yes 14-21 Cans of beer 14.0 - 21.0 1 beer a day Alcohol Habits Answer Date Recorded How often do you have a drink containing 4 or more times a w [place] 08/15/2019 alcohol? How many drinks containing alcohol do you have 1 or 2 08/15/2019 on a typical day when you are drinking? How often do you have six or more drinks on one Never 08/15/2019 occasion? Sex Assigned at Date Recorded Not on file documented as of this encounter Miscellaneous Notes Telephone Encounter - Snehal Best RN - 11/01/2019 8:25 AM EST Leon Osuna MD Muir, Carmen A, RN Caller: Unspecified (Yesterday, 11:08 AM) ?? Yes, He did not want more IVIG. luis VELASQUEZ elephone Encounter - Snehal Best RN - 10/31/2019 11:59 AM ESTReturn call, on hold call dropped. In review of notes. Pt stated in August that it was not really working well and that he had to pay20% it was too expensive to continue. He is now taking [employer]. Suzy notes that she did not have documentation of PA for last infusions but found it before return call. [facility] indicating he will be due again in ? May. Advised at this time there is no indication that he will be receiving IVIG. If he would like to pursue this again, same insurance listed, he will discuss with Dr Osuna. New PA and orders at that time. Suzy agrees with the plan. elephone Encounter - Michaela Michele - 10/31/2019 11:08 AM ESTSecretary Message Provider patient sees in Clinic: Thao Caller: Suzy If not Pt / Relation to pt: Nurse at [facility] Call back Number: [phone] OK to leave message: Yes Reason for call: PA for pts IVIG Message/information for the nurse: [facility] would like to discuss the pt needing a PA for his IVIG. Disposition of Call (choose one) ?? Routine Message sent to the Nurse documented in this encounter Plan of Treatment Not on filedocumented as of this encounter Visit Diagnoses Not on filedocumented in this encounter
--- OUTSIDE RECORDS SUMMARY | 2020-09-05 03:29 | XMS_ITS | Encounter Summary ---
:1955 [place] [address] Care Team Providers Name Role Phone Virgen Constantino MD Primary Care Provider Encounter Details Date Type Department Care Team Description 09/15/2019 Laboratory Appointment Lab [address] [place] [address] Social History Tobacco Use Types Packs/Day Years Used Date Former Smoker Smokeless Tobacco: Never Used Comments: Quit in 2017 Alcohol Use Drinks/Week oz/Week Comments Yes 14-21 Cans of beer 14.0 - 21.0 1 beer a day Alcohol Habits Answer Date Recorded How often do you have a drink containing 4 or more times a w [place] 08/15/2019 alcohol? How many drinks containing alcohol [...] Name Priority Date/Time Associated Diagnosis Comme nts HC CREATINE Routine 09/15/2019 10:03 AM Myopathy Results for this PHOSPHOKINASE, EST procedure are in SERUM the results section. documented in this encounter Results CK (09/15/2019 10:03 AM EST) Pathologist Sig nature CK, Total 565 (H) 0 - 200 unit/L [facility] Specimen Blood Resulting Agency Comment Spec In Lab Performing Organization Address City/State/Zipcode Phone Number [place], [place] [address] [facility] documented in this encounter Visit Diagnoses Diagnosis Myopathy Myopathy, unspecified documented in this encounter
--- OUTSIDE RECORDS SUMMARY | 2020-09-05 03:29 | XMS_ITS | Encounter Summary ---
:1955 Author Organization [facility] [address] Care Team Providers Name Role Phone Virgen Constantino MD Primary Care Provider Reason for Referral Diagnostic Test (Routine) Status Reason Specialty Diagnoses / Referred By Referred To Procedures Contact Contact Closed Specialty Service Radiology Diagnoses Elevated PSA Talon Constantino [facility] Rad Mri Requested Procedures MRI Pelvis wwo (Prostate) MD Virgen [address] [facility] [address] [place] [phone] Phone: Reason for Visit Diagnostic Test (Routine) Status Reason Specialty Diagnoses / Referred By Referred To Procedures Contact Contact Closed Specialty Service Radiology Diagnoses Elevated PSA Talon Constantino [facility] Rad Mri Requested Procedures MRI Pelvis wwo (Prostate) MD Virgen [address] [facility] [place] [phone] Phone: Encounter Details Date Type Department Care Team Description 01/23/2020 Hospital [place] [facility]on Constantino, Elevated PSA [facility] [address] [address] [place] [address] [phone] Social History Tobacco Use Types Packs/Day Years Used Date Former Smoker Smokeless Tobacco: Never Used Comments: Quit in 2017 Alcohol Use Drinks/Week oz/Week Comments Yes 14-21 Cans of beer 14.0 - 21.0 1 beer a day Alcohol Habits Answer Date Recorded How often do you have a drink containing 4 or more times a w [place] 08/15/2019 alcohol? How many drinks containing alcohol [...] mouth daily. documented as of this encounter Plan of Treatment Not on filedocumented as of this encounter Procedures Procedure Name Priority Date/Time Associated Diagnosis Comme nts MRI PELVIS WWO Routine 01/23/2020 3:32 PM Elevated PSA Result s for this (PROSTATE) EDT procedure are i n the results section. documented in this encounter Results MRI Pelvis wwo (Prostate) (01/23/2020 3:32 PM EDT) Specimen Impressions Performed At RAD No focal lesions. ??BPH. PI-RADS 2. Clinically signifi cant cancer is unlikely to be present. PI-RADS v2.1 Assessment Categories PI-RADS 1 -- Very low (clinically significant cancer i s highly unlikely to be present) PI-RADS 2 -- Low (clinically significant cancer is unl ikely to be present) PI-RADS 3 -- Intermediate (the presence of clinically significant cancer is equivocal) PI-RADS 4 -- High (clinically significant cancer is li my to be present) PI-RADS 5 -- Very high (clinically significant cancer is highly likely to be present) References: Vee S1, Nichole JH1, Michael S1, Price C1, Pierce J 1, Tonya M1, Gold S1, Guzman G1, Jarad K1, Dav MJ1, Darrius BJ1, Diandra PA1, Riley new PL1, Taylor B1. ??A Grading System for the Assessment of Ris k of Extraprostatic Extension of Prostate Cancer at Multiparametric MRI. Radiology. 201 Nov;290(3):709-719. doi: 10.1148/radiol.6649045682. Epub 2018Oct 05. Thank you for letting us participate in the care of th is patient. For questions regarding this report, please contact the number below . ? Narrative Performed At EXAMINATION: MRI PELVIS WWO (PROSTATE) RAD CLINICAL HISTORY: Elevated PSA PSA level: 26 Date of sextant biopsy:n/a Prudence score : ??n/a TECHNIQUE: Multiparametric MRI of the pr ostate prior to and following IV administration of 20 cc of Dotarem contr ast. ?? QUALITY: Geometric distortion on diffusion images seco ndary to residual rectal air without compromizing the diagnostic value of the examination. COMPARISON: None FINDINGS: Prostate dimensions: 6.5 x 8.1 x 4.7cm. Estimated prostate volume: 128.7cc (X x Y x Z x 0.52) PSA density: 0.2 (PSA/prostate volume >0 .15 susp, 0.25 highly susp) Peripheral zone: ??T2: Attenuated. Diffuse mild hypoin tensity with indistinct margin. No focal lesions. Combined PI-RADs: 2. Transition zone: ??T2: Typical encapsulated and homoge nous circumscribed nodules. No focal lesions. Combined PI-RADs: 1. Extraprostatic disease: Seminal vesicle involvement:No Lymphadenopathy:No Sphincter involvement:No Bladder involvement:No Osseous metastases: No . MRI-derived Extraprostatic extension ris k: Other findings: Evidence of prior surgical repair of t he right inguinal hernia.. Procedure Note Department, Radiology - 01/23/2020 4:54 PM EDT EXAMINATION: MRI PELVIS WWO (PROSTATE) CLINICAL HISTORY: Elevated PSA PSA level: 26 Date of sextant biopsy:n/a Prudence score : n/a TECHNIQUE: Multiparametric MRI of the pr ostate prior to and following IV administration of 20 cc of Dotarem contr ast. QUALITY: Geometric distortion on diffusi on images secondary to residual rectal air without compromizing the diagnostic value of the examination. COMPARISON: None FINDINGS: Prostate dimensions: 6.5 x 8.1 x 4.7cm. Estimated prostate volume: 128.7cc (X x Y x Z x 0.52) PSA density: 0.2 (PSA/prostate volume >0 .15 susp, 0.25 highly susp) Peripheral zone: T2: Attenuated. Diffus e mild hypointensity with indistinct margin. No focal lesions. Combined PI-RADs: 2. Transition zone: T2: Typical encapsulat ed and homogenous circumscribed nodules. No focal lesions. Combined PI-RADs: 1. Extraprostatic disease: Seminal vesicle involvement:No Lymphadenopathy:No Sphincter involvement:No Bladder involvement:No Osseous metastases: No . MRI-derived Extraprostatic extension ris k: Other findings: Evidence of prior surgic al repair of the right inguinal hernia.. IMPRESSION No focal lesions. BPH. PI-RADS 2. Clini compa significant cancer is unlikely to be present. PI-RADS v2.1 Assessment Categories PI-RADS 1 -- Very low (clinically signif icant cancer is highly unlikely to be present) PI-RADS 2 -- Low (clinically significant cancer is unlikely to be present) PI-RADS 3 -- Intermediate (the presence of clinically significant cancer is equivocal) PI-RADS 4 -- High (clinically significan t cancer is likely to be present) PI-RADS 5 -- Very high (clinically signi ficant cancer is highly likely to be present) References: Vee S1, Nichole JH1, Rodriguez S1, Smi th C1, Pierce J1, Tonya M1, Gold S1, Guzman G1, Rayn K1, Dav MJ1, Darrius BJ1, Jim PA1, Praful PL1, Taylor B1. A Grading System for the Assessment of Ris k of Extraprostatic Extension of Prostate Cancer at Multiparametric MRI. Radiology. 2019 Nov;290(3):709-719. doi: 10.1148/radiol.9662716340. Epub 2018Oct 05. Thank you for letting us participate in the care of this patient. For questions regarding this report, please contact [facility] number below. Performing Organization Address City/State/Zipcode Phone Number [place], [place] documented in this encounter Visit Diagnoses Diagnosis Elevated PSA Elevated prostate specific antigen (PSA) documented in this encounter Administered Medications Inactive Administered Medications - up to 3 most recent administrations Medication Order MAR Action Action Date Dose Rate Site gadoterate meglumine (DOTAREM) Given 01/23/2020 3:28 PM EDT 20 mLs 0.5 mmol/mL (376.9 mg/mL) injection 20.86 mL 20.86 mL (0.2 mL/kg/dose ? 104.3 kg), Intravenous, ONCE PRN, 1 dose, Starting 01/23/20 at 1427, Until Thu01/23/20 at 1528, Per Protocol, Radiology Contrast, Routine documented in this encounter
--- OUTSIDE RECORDS SUMMARY | 2020-09-05 03:29 | XMS_ITS | Encounter Summary ---
:1955 Author Organization [facility] [place] [address] Care Team Providers Name Role Phone Virgen Constantino MD Primary Care Provider Reason for Visit Reason Onset Date Comments Other 02/23/2019 Encounter Details Date Type Department Care Team Description 02/23/2019 Telephone [place] [facility] [place]una [place] [facility] [address] NEUROLOGY DEPT. [phone] [place], [place] [address] [phone] Social History Tobacco Use Types Packs/Day Years Used Date Former Smoker Smokeless Tobacco: Never Used Comments: Quit in 2017 Alcohol Use Drinks/Week oz/Week Comments Yes 14-21 Cans of beer 14.0 - 21.0 2-3 beers robert ly Sex Assigned at Date Recorded Not on file documented as of this encounter Miscellaneous Notes Telephone Encounter - Snehal Best RN - 02/24/2019 11:47 AM EDT Leon Osuna MD Muir, Carmen A, RN Caller: Unspecified (Yesterday, ??9:04 AM) ?? I can see him back. I did write Sherine today so I can get an answer on the biopsy. Thanks, E Spoke with pt who notes he would like follow up after results available. He is worse however will request that Dr Peña nursing secretary contact him to schedule out a bit per his request. elephone Encounter - Snehal Best RN - 02/23/2019 4:02 PM EDT Leon Osuna MD Muir, Carmen A, RN Caller: Unspecified (Today, ??9:04 AM) ?? Nothing final yet. Pt notified. He notes that he is not improving and is progressing. Increased fatigue, hip pain bilaterally , lower extremity pain, left shoulder pain. Wt stable, appetite good. Sleeps like a rotisserie as I turn all night to get comfortable. He has minimal stamina, two short walks and he has to rest. Very discouraged. Especially stiff in am, needs Ibuprofen to get going. elephone Encounter - Shanell Wild - 02/23/2019 9:04 AM EDTClinical [place] Message Caller: Jeison Call back number: [phone] Reason for call: Lab/Test Results Results being requested: Muscle biopsy Where were tab/test done[place] [facility] When were lab/test done: 12/16/18 Additional information or questions for the nurse: Pt would like a call to discuss his lab results. Disposition of Call: - Routine message to nurse documented in this encounter Plan of Treatment Not on filedocumented as of this encounter Visit Diagnoses Not on filedocumented in this encounter
--- OUTSIDE RECORDS SUMMARY | 2020-09-05 03:29 | XMS_ITS | Encounter Summary ---
:1955 Author Organization [facility] [place] [address] Care Team Providers Name Role Phone Virgen Constantino MD Primary Care Provider Encounter Details Date Type Department Care Team Description 12/08/2019 Ancillary Procedure Radiology Library at Constantino, [facility] [place] [facility] [address] [place] [phone] Social History Tobacco Use Types Packs/Day Years Used Date Former Smoker Smokeless Tobacco: Never Used Comments: Quit in 2017 Alcohol Use Drinks/Week oz/Week Comments Yes 14-21 Cans of beer 14.0 - 21.0 1 beer a day Alcohol Habits Answer Date Recorded How often do you have a drink containing 4 or more times a w [place] 08/15/2019 alcohol? How many drinks containing alcohol [...] Priority Date/Time Associated Diagnosis Comme nts FILM LIBRARY- Routine 12/08/2019 8:17 PM Results for this STORAGE ONLY DXA EDT procedure a re in IMAGES the results section. documented in this encounter Results Film Library- Storage Only DXA Images (12/08/2019 8:17 PM EDT) Specimen Narrative Performed At This exam is auto-finalizing. It's purpose is for stor age only. YARY OCASIO Performing Organization Address City/State/Zipcode Phone Number YARY OCASIO [place], [place] documented in this encounter Visit Diagnoses Not on filedocumented in this encounter
--- OUTSIDE RECORDS SUMMARY | 2020-09-05 03:29 | XMS_ITS | Encounter Summary ---
:1955 Author Organization [facility] [place] [address] Care Team Providers Name Role Phone Virgen Constantino MD Primary Care Provider Reason for Visit Reason Onset Date Comments New Medication Request 11/25/2019 Encounter Details Date Type Department Care Team Description 11/25/2019 Telephone [place]ology [place] [facility] Marilu Moncada, New Medication [facility] [place] [address] Social History Tobacco Use Types Packs/Day Years Used Date Former Smoker Smokeless Tobacco: Never Used Comments: Quit in 2017 Alcohol Use Drinks/Week oz/Week Comments Yes 14-21 Cans of beer 14.0 - 21.0 1 beer a day Alcohol Habits Answer Date Recorded How often do you have a drink containing 4 or more times a w [place] 08/15/2019 alcohol? How many drinks containing alcohol do you have 1 or 2 08/15/2019 on a typical day when you are drinking? How often do you have six or more drinks on one Never 08/15/2019 occasion? Sex Assigned at Date Recorded Not on file documented as of this encounter Miscellaneous Notes Telephone Encounter - Marilu Moncada RN - 11/25/2019 1:[facility] not [facility] 8[facility] medrol, can they have a verbal to substitute 4mg tabs instead? documented in this encounter Plan of Treatment Not on filedocumented as of this encounter Visit Diagnoses Not on filedocumented in this encounter
--- OUTSIDE RECORDS SUMMARY | 2020-09-05 03:29 | XMS_ITS | Encounter Summary ---
:1955 Author Organization [facility] [place] [address] Care Team Providers Name Role Phone Virgen Constantino MD Primary Care Provider Reason for Referral Consultation (Routine) Status Reason Specialty Diagnoses / Referred By Referred To Procedures Contact Contact Closed Consult, Test Rheumatology Diagnoses Autoimmune necrotizing myopathy Elias Ramon, & MD Rosenda Haines MD [facility] [address] [facility]ERNAN[facility] NEUROLOGY DEPT. RHEUMATOLOGY [place], [place] DEPT [address] [place], [place] Phone: [phone] Phone: Encounter Details Date Type Department Care Team Description 11/21/2019 [place] [facility]as Ramon, Autoimmune necrotizing [facility] [place] [address] NEUROLOGY DEPT. [phone] [place], [place] [address] [phone] Social History Tobacco Use Types Packs/Day Years Used Date Former Smoker Smokeless Tobacco: Never Used Comments: Quit in 2017 Alcohol Use Drinks/Week oz/Week Comments Yes 14-21 Cans of beer 14.0 - 21.0 1 beer a day Alcohol Habits Answer Date Recorded How often do you have a drink containing 4 or more times a w [place] 08/15/2019 alcohol? How many drinks containing alcohol do you have 1 or 2 08/15/2019 on a typical day when you are drinking? How often do you have six or more drinks on one Never 08/15/2019 occasion? 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 Couldn't sleep for 2 days. On prednisone 20mg/day (fdoen from 30mg/day). ?? Lots of cramping in legs. Motrin helps. ?? CK up to 700 today from 472 one month ago. ?? Anti-CN1-A Ab for [employer] came back neg. ?? Balance still off. Muscles feel fatigued and tight. Hylands leg cramps feel better. ?? Patient is bright and alert and looks comfortable. Cranial nerves II through XII are intact. ??Sensory exam was normal. ??Deep tendon reflexes were normal and symmetric throughout with no signs of myelopathy. ??He had no focal weakness nor any atrophy and normal tone throughout. Gait and stance were normal. ?? Echocardiogram reportedly normal. US showed DVT. Still on Xaralta. ?? Labs today look good except for bump in CK. Should go up on the cellcept to 1000mg BID. ?? I have written Dr. Watts to get his input. F/u 2 mos. 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
--- OUTSIDE RECORDS SUMMARY | 2020-09-05 03:29 | XMS_ITS | Encounter Summary ---
:1955 Author Organization [facility] [place] [address] Care Team Providers Name Role Phone Virgen Constantino MD Primary Care Provider Encounter Details Date Type Department Care Team Description 12/05/2019 Telephone [place] [facility] [place] Rosenda Faulkner, [facility] [place] [address] [facility] [phone] RHEUMATOLOGY MEDICINE [place], [place] [address] [phone] Social History Tobacco Use Types Packs/Day Years Used Date Former Smoker Smokeless Tobacco: Never Used Comments: Quit in 2017 Alcohol Use Drinks/Week oz/Week Comments Yes 14-21 Cans of beer 14.0 - 21.0 1 beer a day Alcohol Habits Answer Date Recorded How often do you have a drink containing 4 or more times a w [place] 08/15/2019 alcohol? How many drinks containing alcohol [...]
--- OUTSIDE RECORDS SUMMARY | 2020-09-05 03:29 | XMS_ITS | Encounter Summary ---
:1955 Author Organization [facility] [address] Care Team Providers Name Role Phone Virgen Constantino MD Primary Care Provider Encounter Details Date Type Department Care Team Description 04/18/2019 Telephone [place] [facility] Osuna [place] [facility] [place] [address] NEUROLOGY DEPT. [phone] [place], [place] [address] [phone] Social History Tobacco Use Types Packs/Day Years Used Date Former Smoker Smokeless Tobacco: Never Used Comments: Quit in 2017 Alcohol Use Drinks/Week oz/Week Comments Yes 14-21 Cans of beer 14.0 - 21.0 2-3 beers robert ly Sex Assigned at Date Recorded Not on file documented as of this encounter Miscellaneous Notes Telephone Encounter - Snehal Best RN - 04/18/2019 11:20 AM EDTSpoke with nurse Suzy notified follow up call by our PA specialist no and verbal with clinicals faxed done. Await outcome. Can not infuse without PA. I will fax when it comes in. We are waiting. elephone Encounter - AbhijitAndriyMarycruz - 04/18/2019 9:35 AM EDTClinical [place] Message Caller: Channing If not Pt / Relation to pt: Call back Number: [phone] Reason for call: Update on IVIG Message/information for the nurse: Patient calling to get an update on IVIG authorizations. He was informed that it's still being worked on but would like to hear from a nurse to discuss. Disposition of Call ?? Routine Message sent to the Nurse documented in this encounter Plan of Treatment Not on filedocumented as of this encounter Visit Diagnoses Not on filedocumented in this encounter
--- OUTSIDE RECORDS SUMMARY | 2020-09-05 03:29 | XMS_ITS | Encounter Summary ---
:1955 Author Organization [place] [address] Care Team Providers Name Role Phone Virgen Constantino MD Primary Care Provider Encounter Details Date Type Department Care Team Description 05/11/2019 Office Visit [place] [facility] [place] Osuna, [place] [address] NEUROLOGY DEPT. [place], [place] [address] [phone] Social History Tobacco Use Types Packs/Day Years Used Date Former Smoker Smokeless Tobacco: Never Used Comments: Quit in 2017 Alcohol Use Drinks/Week oz/Week Comments Yes 14-21 Cans of beer 14.0 - 21.0 2-3 beers robert ly Sex Assigned at Date Recorded Not on file documented as of this encounter Last Filed Vital Signs Vital Sign Reading Time Taken Comments Blood Pressure 138/67 05/11/2019 1:23 PM EDT Pulse 87 05/11/2019 1:23 PM EDT Temperature - - Respiratory Rate - - Oxygen Saturation - - Inhaled Oxygen Concentration - - Weight 113.4 kg (250 lb) 05/11/2019 1:23 PM EDT Height 185.4 cm (6' 1) 05/11/2019 1:23 PM EDT reporte d Body Mass Index 32.98 05/11/2019 1:23 PM EDT documented in this encounter Progress Notes Leon Osuna MD - 05/11/2019 1:30 PM EDTVinnyvictor manuel Cervantes is here in follow- up for 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 He had 5 days of IVIG last week and has noticed no improvement in his stamina or muscle fatigue as of yet, but it is likely too early. He did develop some insomnia, neck stiffness and headache after the IVIG, all common side effects of IVIG. He received some Benadryl prior to the IVIG. He did not receive any Solu-Medrol. 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 Anti-CN1-A Ab for [employer] came back neg. Patient is bright and alert and looks comfortable. His weight is 250 pounds. Cranial nerves II through XII are intact. Sensory exam was normal. Deep tendon reflexes were normal and symmetric throughout with no signs of myelopathy. He had no focal weakness nor any atrophy and normal tone throughout. Gait and stance were normal. The patient will contact me next week or so let me know if he thinks the IVIG has been helpful. We know he has a myopathy based on his muscle biopsy and elevated CKs. 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 What has triggered this is unclear. He has not been on statins. I am going to give him another 2 days of IVIG in late May, early June I will see him back in July. I have asked for him to be premedicated with some Solu-Medrol so is to avoid the neck stiffness and headaches. He is to call me in the next week or so and let me know how he is doing. documented in this encounter Plan of Treatment Not on filedocumented as of this encounter 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
--- OUTSIDE RECORDS SUMMARY | 2020-09-05 03:29 | XMS_ITS | Encounter Summary ---
:1955 Author Organization [facility] [place] [address] Care Team Providers Name Role Phone Virgen Constantino MD Primary Care Provider Encounter Details Date Type Department Care Team Description 01/13/2020 Notes Only Rheumatology at [facility] Rosenda Faulkner, [facility] [place] [address] [facility] [phone] RHEUMATOLOGY [place], [place] [address] [phone] Social History Tobacco Use Types Packs/Day Years Used Date Former Smoker Smokeless Tobacco: Never Used Comments: Quit in 2017 Alcohol Use Drinks/Week oz/Week Comments Yes 14-21 Cans of beer 14.0 - 21.0 1 beer a day Alcohol Habits Answer Date Recorded How often do you have a drink containing 4 or more times a w [place] 08/15/2019 alcohol? How many drinks containing alcohol do you have 1 or 2 08/15/2019 on a typical day when you are drinking? How often do you have six or more drinks on one Never 08/15/2019 occasion? Sex Assigned at Date Recorded Not on file documented as of this encounter Progress Notes Rosenda Faulkner MD - 01/13/2020 11:59 PM EDTCalled patient today to discuss labs. CBC- WBC ~ 11.4- Leucocytosis likely from steroids. AST-44, ALT-100 Mildly elevated CK- 712 Cr-1.13 Elevated PSA for 10 years 7 > 15 > 26. Patient reports being monitored for this by PCP. Has had prior Bx which were negative. MRI prostrate- ordered by PCP. Patient reports being on 16 mg of Medrol currently. ??Feels getting worse- getting weaker- Feels having muscle loss in lower extremities. Painful to walk- hips/ buttocks/ back of the legs. ?? 2 hours of leg cramps two days ago lasted for 3 hours >following night was a little better. Taking magnesium every evening, this has made a difference. Taking 500 mg in the evening- this helps. Has been taking MTX for ~ 8 weeks now. Tolerating this without significant ADRs. Taking folic acid. He reports overall muscle pain and weakness in the past 3 months with minimal improvement. [place] a litlte better when on higher dose of steroids. He does think MMF may have made some difference in his symptoms that was started ~ 4 months ago. Given his mild elevation in LFTS. Will NOT further Up titrate his MTX dosing at this time. He shouldavoid NSAIDs, Tylenol, Alc use. Will repeat labs when he is next here for follow up visit with Neurology and Rheumatology in 2nd week of January. Patient was advised to Increase Medrol dosing to 28 mg every morning till his office visit within two weeks, We will titrate Steroid based on response. If LFTs persistently elevated may need consideration to switch Immunosuppressive therapy. He reports understanding of the plan. Patient was dicussed with Dr. Ragsdale. Rosenda Faulkner MD documented in this encounter Plan of Treatment Not on filedocumented as of this encounter Results CRP, acute inflammation (01/23/2020 8:53 AM EDT) Pathologist [facility] CRP 1.8 <=4.9 mg/L [facility] Specimen Blood Resulting Agency Comment Spec In Lab Performing Organization Address City/State/Zipcode Phone Number [address] LABORATORY Sedimentation rate (01/23/2020 8:53 AM EDT) Pathologist [facility] Sed Rate 13 2 - 37 mm/hr [facility] Comment: [facility] Effective August 24, 2019 new capillary photom etric technology has resulted LABORATORY in a change in reference ranges. It is recommended moni t each ESR result be reviewed with its own age appropriate reference range. Specimen Blood Resulting Agency Comment Spec In Lab Performing Organization Address City/State/Zipcode Phone Number [facility] [place] [address] [facility] Comprehensive metabolic panel (non-fasting) (01/23/2020 8:53 AM EDT) Glucose Lvl 170Comment: Diabetes: 65 - 199 [facility] >=200 mg/dL plus mg/dL [facility] symptoms LABORATORY BUN 24 (H) 10 - 20 [facility] mg/dL [facility] Creatinine 0.83 0.80 - 1.50 [facility] mg/dL [facility] Sodium 138 135 - 145 [facility] mmol/L [facility] Potassium 4.5 3.5 - 5.0 [facility] Comment: mmol/L [facility] Please note: ??Patients with WBC >100,000 may welch ve falsely elevated Potassium LABORATORY levels. ??For accurate Potassium quantification in the se patients send serum separator tube (gold top) fo r subsequent determinations. ??Contact the Clinical Chemistry Laboratory if there are any questions. Chloride 97 (L) 98 - 107 [facility] mmol/L [facility] CO2 29 22 - 31 [facility] mmol/L [facility] Anion Gap 12 5 - 15 [facility] mmol/L [facility] Calcium 9.7 8.5 - 10.5 [facility] mg/dL [facility] Total Protein 6.1 6.1 - 8.0 [facility] gm/dL [facility] Albumin 4.0 3.2 - 5.2 [facility] gm/dL [facility] AST 37 0 - 39 [facility] unit/L [facility] ALT 78 (H) 0 - 55 [facility] unit/L [facility] Alk Phos 37 (L) 40 - 130 [facility] unit/L [facility] Total Bilirubin 0.7 0.2 - 1.3 [facility] mg/dL [facility] Estimated GFR 93 >=60 [facility] Comment: mL/min/1.73 [facility] The eGFR was calculated using the CKD-EPI equati on. As with all creatinine m?? LABORATORY based estimates of kidney function, eGFR values calcul ated with the CKD-EPI equation are not accurate in patients with acute kidne y failure, extremes of body mass or the acutely ill. http://[employer]/[facility] eGFR 108 >=60 [facility] [place] Comment: mL/min/1.73 [facility] The eGFR was calculated using the CKD-EPI equati on. As with all creatinine m?? LABORATORY based estimates of kidney function, eGFR values calcul ated with the CKD-EPI equation are not accurate in patients with acute kidne y failure, extremes of body mass or the acutely ill. http://[employer]/[facility]nk[facility] Specimen Blood Resulting Agency Comment Spec In Lab Performing Organization Address City/State/Zipcode Phone Number [address] LABORATORY CK (01/23/2020 8:53 AM EDT) Pathologist Sig nature CK, Total 342 (H) 0 - 200 unit/L [facility]ORATORY Specimen Blood Resulting Agency Comment Spec In Lab Performing Organization Address City/State/Zipcode Phone Number [address] LABORATORY documented in this encounter Visit Diagnoses Diagnosis Muscle weakness of lower extremity Muscle weakness (generalized) documented in this encounter
--- OUTSIDE RECORDS SUMMARY | 2020-09-05 03:29 | XMS_ITS | Encounter Summary ---
:1955 Author Organization [facility] [place] [address] Care Team Providers Name Role Phone Virgen Constantino MD Primary Care Provider Encounter Details Date Type Department Care Team Description 09/12/2019 Orders Only Neurology at [facility] Leon Osuna MD [facility] [place] [address] NEUROLOGY DEPT. [phone] [place], [place] [address] [phone] Social History Tobacco Use Types Packs/Day Years Used Date Former Smoker Smokeless Tobacco: Never Used Comments: Quit in 2017 Alcohol Use Drinks/Week oz/Week Comments Yes 14-21 Cans of beer 14.0 - 21.0 1 beer a day Alcohol Habits Answer Date Recorded How often do you have a drink containing 4 or more times a w [place] 08/15/2019 alcohol? How many drinks containing alcohol do you have 1 or 2 08/15/2019 on a typical day when you are drinking? How often do you have six or more drinks on one Never 08/15/2019 occasion? Sex Assigned at Date Recorded Not on file documented as of this encounter Plan of Treatment Not on filedocumented as of this encounter Results CK (09/15/2019 10:03 AM EST) Pathologist Sig nature CK, Total 565 (H) 0 - 200 unit/L [facility] LABORATORY Specimen Blood Resulting Agency Comment Spec In Lab Performing Organization Address City/State/Zipcode Phone Number [place], [place] [address] [facility] documented in this encounter Visit Diagnoses Diagnosis Myopathy Myopathy, unspecified documented in this encounter
--- OUTSIDE RECORDS SUMMARY | 2020-09-05 03:29 | XMS_ITS | Encounter Summary ---
:1955 Author Organization [facility] [place] [address] Care Team Providers Name Role Phone Virgen Constantino MD Primary Care Provider Encounter Details Date Type Department Care Team Description 10/26/2018 Orders Only [place]rology [place] [facility] [place] [address] Social History Tobacco Use Types Packs/Day [...]
--- OUTSIDE RECORDS SUMMARY | 2020-09-05 03:29 | XMS_ITS | Encounter Summary ---
:1955 Author Organization [facility] [place] [address] Care Team Providers Name Role Phone Virgen Constantino MD Primary Care Provider Encounter Details Date Type Department Care Team Description 01/13/2020 Telephone Rheumatology at [facility] Rosenda Faulkner, [facility] [place] [address] [facility] [phone] RHEUMATOLOGY [place], [place] [address] [phone] Social History Tobacco Use Types Packs/Day Years Used Date Former Smoker Smokeless Tobacco: Never Used Comments: Quit in 2017 Alcohol Use Drinks/Week oz/Week Comments Yes 14-21 Cans of beer 14.0 - 21.0 1 beer a day Alcohol Habits Answer Date Recorded How often do you have a drink containing 4 or more times a w [place] 08/15/2019 alcohol? How many drinks containing alcohol [...]
--- OUTSIDE RECORDS SUMMARY | 2020-09-05 03:29 | XMS_ITS | Encounter Summary ---
:1955 Author Organization [facility] [place] [address] Care Team Providers Name Role Phone Virgen Constantino MD Primary Care Provider Encounter Details Date Type Department Care Team Description 10/27/2018 External Results Neurology at [facility] Leon Osuna MD [facility] [place] [address] NEUROLOGY DEPT. [phone] [place], [place] [address] [phone] Social History Tobacco Use Types Packs/Day Years Used Date Former Smoker Smokeless Tobacco: Never Used Comments: Quit in 2017 Alcohol Use Drinks/Week oz/Week Comments Yes 2-3 beers daily Sex Assigned at Date Recorded Not on file documented as of this encounter Plan of Treatment Not on filedocumented as of this encounter Procedures Procedure Name Priority Date/Time Associated Diagnosis Comme nts EMG SCAN Routine 10/26/2018 documented in this encounter Visit Diagnoses Not on filedocumented in this encounter
--- OUTSIDE RECORDS SUMMARY | 2020-09-05 03:29 | XMS_ITS | Encounter Summary ---
:1955 [place] [address] Care Team Providers Name Role Phone Virgen Constantino MD Primary Care Provider Encounter Details Date Type Department Care Team Description 08/15/2019 Laboratory Appointment Lab 3L [facility] [place] [address] Social History Tobacco Use Types Packs/Day Years Used Date Former Smoker Smokeless Tobacco: Never Used Comments: Quit in 2017 Alcohol Use Drinks/Week oz/Week Comments Yes 14-21 Cans of beer 14.0 - 21.0 1 beer a day Alcohol Habits Answer Date Recorded How often do you have a drink containing 4 or more times a w [place] 08/15/2019 alcohol? How many drinks containing [...] Priority Date/Time Associated Diagnosis Comme nts HC VENIPUNCTURE Routine 08/15/2019 8:52 AM Myopathy Resul ts for this EST procedure are i n the results section. documented in this encounter Results CK (08/15/2019 8:52 AM EST) Pathologist Sig nature CK, Total 1,231 (H) 0 - 200 unit/L [facility] Specimen Blood Resulting Agency Comment Spec In Lab Performing Organization Address City/State/Zipcode Phone Number [place], [place] [address] [facility] LABORATORY documented in this encounter Visit Diagnoses Diagnosis Myopathy Myopathy, unspecified documented in this encounter
--- OUTSIDE RECORDS SUMMARY | 2020-09-05 03:29 | XMS_ITS | Encounter Summary ---
:1955 Author Organization [facility] [place] [address] Care Team Providers Name Role Phone Virgen Constantino MD Primary Care Provider Reason for Referral Diagnostic Test (Routine) Status Reason Specialty Diagnoses / Referred By Referred To Procedures Contact Contact Specialty Service Radiology Diagnoses Muscle fatigue [facility] Rad Mri Requested Procedures MRI Myositis MD [place] [facility] [address] [place] NEUROLOGY DEPT [phone] [place], [place] Phone: [phone] Reason for Visit Auth/Cert Status Reason Specialty Diagnoses / Procedures Referred By Ministerio ruano Referred To Contact Diagnoses Muscle fatigue Procedures MRI MYOSITIS Encounter Details Date Type Department Care Team Description 11/25/2018 Hospital Encounter MRI at [facility] Leon Osuna, Muscle fatigue [facility] [place] [address] NEUR[address]PT[address] [place], [place] [address] [phone] Social History Tobacco Use Types Packs/Day Years [...] every 6 hours as needed for Pain. documented as of this encounter Plan of Treatment Not on filedocumented as of this encounter Procedures Procedure Name Priority Date/Time Associated Diagnosis Comme [facility] MRI MYOSITIS Routine 11/25/2018 8:41 AM Muscle fatigue Result s for this EDT procedure are i n the results section . documented in this encounter Results MRI Myositis (11/25/2018 8:41 AM EDT) Specimen Impressions Performed At 1. 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 2. ??Presence of fatty infiltration of several left ca lf muscles indicates acute on chronic process. 3. ??Minimal fasciitis in the left later al calf. Thank you for letting us participate in the care of th is patient. For questions regarding this report, please contact the number below . ? Narrative Performed At EXAMINATION: MRI MYOSITIS ? RAD CLINICAL HISTORY: Left Leg. p/w muscle fatigue suggest any of myopathy. R/o inflammatory process., ,entered by order ing service COMPARISON: L shoulder TECHNIQUE: Noncontrast MRI of the pelvis bilateral thigh and calfs was performed. FINDINGS: Pelvis SOFT TISSUES: No subcutaneous edema or fascial edema. No fluid colle ction seen. Heterogeneous enlarged prostate gland, 60 x 59 mm with central gland hypertrophy, series 100 image 8. MUSCLES: Normal muscle signal. No fatty atrophy. Thigh SOFT TISSUES: No subcutaneous edema or fascial edema. Ferromagnetic artifact in anterior mid calf, series 5006 image 28. MUSCLES: Left long head of biceps-the distal half of the muscle has bright STIR signal, series 100 image 51. Right Normal muscle signal and no fatty atroph y. Calfs SOFT TISSUES: Bilateral pretibial minima l subcutaneous edema. Left Linear bright STIR signal in the deep fascia of the la teral calf, series 5006 image 21 represents fascial fluid or fas ciitis. Right Minimal perifascial edema in the lateral calf. MUSCLES: 1. ??Bilateral Soleus- bright STIR signal diffuse on t he left and localized to the medial fibers of the right. There is linear fatty infiltration of the left psoas muscle and normal T1 signal on the right. Findin gs represent myositis of varying age. 2. ??Bilateral Medial head of the gastrocnemius muscle - bright STIR signal more extensive on the left. Minimal bilateral fatty infiltration. 3. ??Left Flexor pollicis longus muscle-bright STIR si gnal and mild fatty infiltration. 4. ??Left extensor digitorum longus muscle near the an kle-normal T1 signal and bright STIR signal, series 5006 image 56 . OSSEOUS STRUCTURES: Normal marrow signal. TENDONS: Hamstring-left slightly bright T2 signal at insertion, series 100-12 resembles insertional tendinopathy. No peritendino us edema. Procedure Note Department, Radiology - 11/25/2018 2:33 PM EDT EXAMINATION: MRI MYOSITIS CLINICAL HISTORY: Left Leg. p/w muscle f atigue suggestive of myopathy. R/o inflammatory process., ,entered by order ing service COMPARISON: L shoulder TECHNIQUE: Noncontrast MRI of the pelvis bilateral thigh and calfs was performed. FINDINGS: Pelvis SOFT TISSUES: No subcutaneous edema or fascial edema. No fluid collection seen. Heterogeneous enlarged prostate gland, 60 x 59 mm with central gland hypertrophy, series 100 image 8. MUSCLES: Normal muscle signal. No fatty atrophy. Thigh SOFT TISSUES: No subcutaneous edema or fascial edema. Ferromagnetic artifact in anterior mid calf, series 5006 image 28. MUSCLES: Left long head of biceps-the distal half of t he muscle has bright STIR signal, series 100 image 51. Right Normal muscle signal and no fatty atroph y. Calfs SOFT TISSUES: Bilateral pretibial minima l subcutaneous edema. Left Linear bright STIR signal in the deep fa scia of the lateral calf, series 5006 image 21 represents fascial fluid or fas ciitis. Right Minimal perifascial edema in the lateral calf. MUSCLES: 1. Bilateral Soleus- bright STIR signal diffuse on the left and localized to the medial fibers of the right. There is linear fatty infiltration of the left psoas muscle and normal T1 signal on the right. Findings represent myositis of varying age. 2. Bilateral Medial head of the gastroc nemius muscle- bright STIR signal more extensive on the left. Minimal bilateral fatty infiltration. 3. Left Flexor pollicis longus muscle-b right STIR signal and mild fatty infiltration. 4. Left extensor digitorum longus muscl e near the ankle-normal T1 signal and bright STIR signal, series 5006 image 56 . OSSEOUS STRUCTURES: Normal marrow signal. TENDONS: Hamstring-left slightly bright T2 signal at insertion, series 100-12 resembles insertional tendinopathy. No peritendino us edema. IMPRESSION 1. Myositis of multiple muscles of bila teral calfs more pronounced on the left than the right. 2. Presence of fatty infiltration of se veral left calf muscles indicates acute on chronic process. 3. Minimal fasciitis in the left latera l calf. Thank you for letting us participate in the care of this patient. For questions regarding this report, please contact e number below. Performing Organization Address City/State/Zipcode Phone Number [facility]LE [place], [place] documented in this encounter Visit Diagnoses Diagnosis Muscle fatigue Other musculoskeletal symptoms referable to limbs documented in this encounter
--- OUTSIDE RECORDS SUMMARY | 2020-09-05 03:29 | XMS_ITS | Encounter Summary ---
:1955 Author Organization [facility] [place] [address] Care Team Providers Name Role Phone Virgen Constantino MD Primary Care Provider Reason for Referral Diagnostic Test (Routine) Status Reason Specialty Diagnoses / Referred By Referred To Procedures Contact Contact Closed Specialty Service Radiology Diagnoses Muscle weakness of lower extremity Muscle pain [facility] Rad Mri Requested Procedures MRI Lumbar Spine wo Contrast (Generic) Rosenda Acosta MD [facility] [address] [place] RHEUMATOLOGY [id number] DEPT Phone: [place], [place] [phone] Encounter Details Date Type Department Care Team Description 01/25/2020 Orders Only Rheumatology at [facility] Rosenda Faulkner Muscle weakness of lower ext remity; [facility] MD Karla [address] [place] [address] RHEUMATOLOGY DEP T [place], [place] [address] [phone] Social History Tobacco Use Types Packs/Day Years Used Date Former Smoker Smokeless Tobacco: Never Used Comments: Quit in 2017 Alcohol Use Drinks/Week oz/Week Comments Yes 14-21 Cans of beer 14.0 - 21.0 1 beer a day Alcohol Habits Answer Date Recorded How often do you have a drink containing 4 or more times a w false pass 08/15/2019 alcohol? How many drinks containing alcohol do you have 1 or 2 08/15/2019 on a typical day when you are drinking? How often do you have six or more drinks on one Never 08/15/2019 occasion? Sex Assigned at Date Recorded Not on file documented as of this encounter Plan of Treatment Not on filedocumented as of this encounter Results MRI Lumbar Spine wo Contrast (Generic) (01/29/2020 10:31 AM EDT) Specimen Impressions Performed At 1. ??Severe central canal stenosis at L3-L4 secondary to [facility] RAD anterolisthesis, disc bulge and facet arthropathy. 2. ??Subarticular zone disc extrusion at L5-S1 abuts b ut do not displace the traversing S1 nerves. ____ Comment: The following findings are so common in peopl e without low back pain that while we report their presence, they must be inte rpreted with caution and in context of the clinical situation (Reference- Rishi alejandre Et Al, Spine 2001). Findings: (Prevalence in patients without low back robert n), disc degeneration (decreased T2 signal, height loss, bulge) (91%), disc T2-signal loss (83%), disc height loss (56%), disc bulge (64%), disc protrusion ( 32%), annular fissure (38%). I have personally reviewed the image(s) and the reside nt's interpretation and agree with the findings, Mukesh Pratt at 01/29/2020 1:31 PM Thank you for letting us participate in the care of th is patient. For questions regarding this report, please contact the number below . ? Narrative Performed At EXAMINATION: MRI LUMBAR SPINE JULIO Cummings ([facility]) RAD CLINICAL HISTORY: Lumbar radiculopathy, > 6 wks Patient has burning pain in B/L Hips and Thighs with a mbulation- MRI to evaluate for Spinal stenosis. Request Radiology to please to pr otocol as appropriate. TECHNIQUE: MRI of the lumbar spine performed without intravenous contrast administration. COMPARISON: Radiographs of the lumbar spine 0 FINDINGS: Mild levoconvex curvature. There is mild (grade 1) ant erolisthesis of L3 on L4 secondary to facet arthropathy. Minimal retrolisthesis of L5 on S1. There is moderate disc height loss at the T11-T12 and L5-S1 lev els. Probable osseous hemangiomas within the T12 and L4 vertebral bodies. No suspicious marrow space or disc space signal. The conus medullaris terminates at the l evel of L1-L2 disc space. Normal morphology and signal of the conus medullaris. There i s buckling and crowding of nerve roots secondary to central canal stenosis as det margarito level by level below. Visualized retroperitoneal struct ures are unremarkable. T11-T12: Small central disc protrusion indents the ilene tral thecal sac. Mild central canal narrowing. No significant neural foraminal narrowing. T12-L1: No disc herniation. No central canal or neural foraminal narrowing. L1-L2: No disc herniation. No central canal or neural foraminal narrowing. L2-L3: Disc bulge with superimposed small left foramin al disc protrusion. Mild central canal narrowing. Mild bilateral neural foramin al narrowing, left greater than right. L3-L4: Anterolisthesis, disc bulge, endplate prolifera tive changes and facet arthropathy. There is severe central canal stenosis wi th buckling and crowding of nerve roots with effacement of subarachnoid space ( axial series 100 image 15). Moderate to severe bilateral subarticular recess narrowing. Moderate bilateral neural foraminal narrowing. L4-L5: Disc bulge, endplate proliferative changes and facet arthropathy. Mild to moderate central canal stenosis with crowding of nerve roots. Mild bilateral neural foraminal narrowing. L5-S1: Disc bulge with superimposed central disc extru eduardo. Mild central canal narrowing. Moderate bilateral neural foraminal narrowi ng. Subarticular zone disc material abuts but does not displace the traversing S1 nerves (axial series 100 image 80). Procedure Note Department, Radiology - 01/29/2020 1:36 PM EDT EXAMINATION: MRI LUMBAR SPINE WO CONTRAST (GENERIC) CLINICAL HISTORY: Lumbar radiculopathy, > 6 wks Patient has burning pain in B/L Hips and Thighs with ambulation- MRI to evaluate for Spinal stenosis. Request Radiology t o please to protocol as appropriate. TECHNIQUE: MRI of the lumbar spine performed withou t intravenous contrast administration. COMPARISON: Radiographs of the lumbar spine 0 FINDINGS: Mild levoconvex curvature. There is mild (grade 1) anterolisthesis of L3 on L4 secondary to facet arthropathy. Minimal retrolisthesis of L5 on S1. There is moderate disc height loss at the T11-T12 and L5-S1 levels. Probable osseous hemangiomas within the T12 and L4 verteb ral bodies. No suspicious marrow space or disc space signal. The conus medullaris terminates at the l evel of L1-L2 disc space. Normal morphology and signal of the conus medul dannie. There is buckling and crowding of nerve roots secondary to central canal s tenosis as detailed level by level below. Visualized retroperitoneal struct ures are unremarkable. T11-T12: Small central disc protrusion i ndents the ventral thecal sac. Mild central canal narrowing. No significant neural foraminal narrowing. T12-L1: No disc herniation. No central c anal or neural foraminal narrowing. L1-L2: No disc herniation. No central ca nal or neural foraminal narrowing. L2-L3: Disc bulge with superimposed smal l left foraminal disc protrusion. Mild central canal narrowing. Mild bilateral neural foraminal narrowing, left greater than right. L3-L4: Anterolisthesis, disc bulge, endp late proliferative changes and facet arthropathy. There is severe central can al stenosis with buckling and crowding of nerve roots with effacement of subara chnoid space (axial series 100 image 15). Moderate to severe bilateral subart icular recess narrowing. Moderate bilateral neural foraminal narrowing. L4-L5: Disc bulge, endplate proliferativ e changes and facet arthropathy. Mild to moderate central canal stenosis with microcomputer technician wding of nerve roots. Mild bilateral neural foraminal narrowing. L5-S1: Disc bulge with superimposed cent ral disc extrusion. Mild central canal narrowing. Moderate bilateral neural for aminal narrowing. Subarticular zone disc material abuts but does not displace the traversing S1 nerves (axial series 100 image 80). IMPRESSION 1. Severe central canal stenosis at L3- L4 secondary to anterolisthesis, disc bulge and facet arthropathy. 2. Subarticular zone disc extrusion at L5-S1 abuts but do not displace the traversing S1 nerves. Comment: The following findings are so c ommon in people without low back pain that while we report their presence, the y must be interpreted with caution and in context of the clinical situation (Re riky- Rishik Et Al, Spine 2001). Findings: (Prevalence in patients withou t low back pain), disc degeneration (decreased T2 signal, height loss, bulge ) (91%), disc T2-signal loss (83%), disc height loss (56%), disc bulge (64%), dis c protrusion (32%), annular fissure (38%). I have personally reviewed the image(s) and the resident's interpretation and agree with the findings, Mukesh Pratt at 01/29/2020 1:31 PM Thank you for letting us participate in the care of this patient. For questions regarding this report, please contact e number below. Performing Organization Address City/State/Zipcode Phone Number RAD [place], [place] documented in this encounter Visit Diagnoses Diagnosis Muscle weakness of lower extremity Muscle weakness (generalized) Muscle pain Mylagia and myositis, unspecified documented in this encounter
--- OUTSIDE RECORDS SUMMARY | 2020-09-05 03:29 | XMS_ITS | Encounter Summary ---
:1955 Author Organization [facility] [place] [address] Care Team Providers Name Role Phone Virgen Constantino MD Primary Care Provider Reason for Referral Consultation (Routine) Status Reason Specialty Diagnoses / Referred By Referred To Contact Procedures Contact Closed Consult, Test Rheumatology Diagnoses Muscle fatigue Myositis, unspecified myositis type, unspecified site [facility] Rheumatology & Treat MD Oumou [address] [place] [address] DR [place] [phone] Phone: Fax: Encounter Details Date Type Department Care Team Description 11/25/2018 Office Visit Neurology at [facility] Leon Osuna MD [facility] [place] [address] Muscle fatigue; [facility] Oumou Dunne MD [facility] [place] [address] Myositis, unspecified myositis type, [place] [address] Social History Tobacco Use Types Packs/Day Years Used Date Former Smoker Smokeless Tobacco: Never Used Comments: Quit in 2017 Alcohol Use Drinks/Week oz/Week Comments Yes 14-21 Cans of beer 14.0 - 21.0 2-3 beers robert ly Sex Assigned at Date Recorded Not on file documented as of this encounter Last Filed Vital Signs Vital Sign Reading Time Taken Comments Blood Pressure 127/78 11/25/2018 1:19 PM EDT Pulse 108 11/25/2018 1:19 PM EDT Temperature - - Respiratory Rate - - Oxygen Saturation - - Inhaled Oxygen Concentration - - Weight 116.6 kg (257 lb) 11/25/2018 1:19 PM EDT With s homaximiliano Height 185.4 cm (6' 1) 11/25/2018 1:19 PM EDT Reporte d Body Mass Index 33.91 11/25/2018 1:19 PM EDT documented in this encounter Progress Notes Oumou Dunne MD - 11/25/2018 1:45 PM EDT NEUROLOGY CLINIC [facility] [place] [address] Facsimile: 11/25/2018 Inital Consultation Patient name: Jeison Cervantes Date of : 1955 Referring provider: Talon Constantino MD [address] [place] [address] Reason for referral/Chief complaint: We are seeing this patient for evaluation of muscle fatigue atthe request of Dr. Gage. HPI on 10/26/18 Jeison Cervantes is a 63 y.o. right -handed dominant man. Symptoms first began two years ago, coindentally when he ceased smoking. Perhaps he began to notice his symptoms mores. He states aching, muscle cramps that first presented in the LLE. A couple months later he noticed these symptoms in his RLE. Symptoms began to progress proximally, eventually manifesting in b/l UE. Now he notices persistent generalized muscle weakness with intermittent cramps. He can still complete tasks however it takes him a longer time to complete it. After strenuous work out exercise he feels completely exhausted. He has to take naps because he feels sleep deprived but denies any difficulty breathing or shortness of breath when he lays flat. He hasno difficulty breathing. His voice sounds the same to him. He is able to eat a hamburger without difficulty chewing or difficulty swallowing his food. There is no unintentional weight loss of gain thathe notices. He has not had any falls, he does not think he is clumsy but endorse b/l LE weakness. He still has fine muscle control of his fingers and can picker tender helper small items. He denies any pain when moving his neck from side to side, also denies any radiating pain. He has no loss/change in bowel/bladder function.His past medical history is significant for elevated PSA with neg biopsy x 2 with yearly serologicalsurveillance. He was born in [place], raised in [place] and now lives in [place] with his , Taniya. She was previously employed as a [employer] for 27 years and endorses exposure to chemicals. Interval hx 11/25/[address] Drs. Dunne/Dr. Osuna Today he is accompanied by his , Taniya. Overall, he feels much has not changed. Some days are better than others. He remembers two years ago he didn't have any symptoms, he was able to tamiko his grandchildren without fatigue. Now he needs brief 1 hour naps to get through the day. There's no pain, just weakness. His pace is slower when he walks, he can go around the [employer] in [facility] just once. He is able to stand from a seated position without using his hands. For the last two years he has had difficultly using the stairs. His sleep is interrupted, he tosses and turns at night. He prefers to sleep on his side and can't because of shoulder pain. No orthopnea though. He notes his skin is skill itchy. Also states he has to rub his eyes a lot. He has no difficulty chewing foods or swallowing. There has been no choking episodes. He denies any steroid or statin use. Only medication he uses is an occasional Ibuprofen. Past Medical History: Diagnosis Date ??? 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 Venous insufficiency of left lower extremity 05/04/2018 -Dermatitis Past medical history: No family history on file. Social History Social History Narrative ??? Not on file Social History: alcohol 2-3 beers Outpatient Encounter Medications as of 11/25/2018 Medication Sig Dispense Refill ??? ibuprofen (ADVIL;MOTRIN) 400 mg Tablet Take 400 mg by mouth every 6 hours as needed for Pain. ??? [DISCONTINUED] augmented betamethasone dipropionate (DIPROLENE-AF) 0.05 % Cream Apply topically twice daily for two weeks to the left lower early, then take one week off and repeat if needed. (Patient not taking: Reported on 10/26/2018) 50 g 1 No facility-administered encounter medications on file as of 11/25/2018. Allergies Allergen Reactions ??? Cat Dander ??? Dog Dander ??? Hay [Grass Pollen-[place], Standard] Review of systems: A 14-point review of systems was conducted and pertinant positives and negatives recorded in the HPI. Constitutional: No fevers or chills Eyes: No vision changes, no diplopia, no blurry vision ENT: No rhinorrhea or pharyngitis, no meningismus CV: No chest pain or palpitations Resp: No cough, no shortness of breath GI: No nausea, vomiting, diarrhea or constipation : No dysuria, no incontinence Heme: No bleeding or bruising Endo: No diabetes or thyroid disease Neuro: See HPI Psych: No depression, poor sleep [x] Review of systems otherwise negative Objective: BP 127/78 (BP Location (NBP): Left arm, Patient Position: Sitting, BP Cuff Sizes: Adult (25-34 cm)) Pulse (!) 108 Ht 185.4 cm (6' 1) Comment: Reported Wt 116.6 kg (257 lb) Comment: With shoes BMI 33.91 kg/m?? Constitutional: Patient of apparent stated age, well nourished, well developed, no acute distress Neck: Supple, no meningismus, no carotid bruit CV: RRR, S1, S2, no murmur Resp: CTAB Abd: Soft, nontender, nondistended Ext: No edema. No bony deformity Neuro: MS: Alert, oriented, clear language, no dysarthria CN: PERRL, EOMI, visual love full, trigeminal sensation intact, no facial asymmetry, hearing intact to whisper, palate elevates symmetrically, tongue protrudes midline, SCM and trap strength intact Neuro: Mental Status: alert. Normal orientation, language, attention. HEENT/CN: PERRL, EOMI without nystagmus, no ptosis, visual love intact. Symmetric smile, eyelids closed equally. Palate elevated symmetrically, midline tongue, no dysarthria or fasciculations or atrophy. No hoarse voice. Motor: Normal tone and bulk. No pronator drift. Fast finger and toe taps. No tremor, fasciculations, or other adventitious movements. 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 Sensation: Intact to light touch, pain, temperature, and vibration throughout Coordination: Normal [id number] with no dysmetria or ataxia. Gait: Normal gait with symmetric arm swing and narrow base. Able to heel and toe walk with normal tandem gait. Data: Labs: --neg Myositis panel --Rheum panel: pos MICHAEL 1:160 // neg DS DNA ab, neg RF, neg SSA/SSB --CK (986) --wnl: ca 9.8, mg 0.87, phos 3.4, tsh 2.9, hbA1c 6 --wnl: Vit b12 (277), folate (13.6), esr (15) Full myositis panel Previous NCS/EM11/25/2018 Needle EMG. NCS was not completed. EMG was completed and it was on the left tibialis anterior, gastrocnemius, vastus, iliopsoas. Gastrocnemius showed PSW which is likely incidental and noncontributing to his generalized weakness. Otherwise, normal motor unit potentials were observed. MRI 11/25/18: 1. 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 2. Presence of fatty infiltration of several left calf muscles indicates acute on chronic process. 3. Minimal fasciitis in the left lateral calf. Muscle biopsy options: Thigh Left long head of biceps-the distal half of the muscle has bright STIR signal, series 100 image 51. Calfs Left Linear bright STIR signal in the deep fascia of the lateral calf, series 5006 image 21 represents fascial fluid or fasciitis. Right 1. Bilateral Soleus- bright STIR signal diffuse [...] bright STIR signal, series 5006 image 56. - Assessment and Plan: Jeison Cervantes is a 63 y.o. right hand dominant man with a past medical history significant for left varicose vein, dermatitis and an elevated PSA with annual serological monitoring with a negative biopsy. He was referred for muscle aches that began in the left lower extremity that then became bilateral. The aches occurs in all 4 extremities associated with muscle weakness. Symptoms have been getting progressively worse. He initially sought care at an outside neurologist who completed a nerve conduction study and EMG with normal results. He was referred for a reassessment. On today's clinic he endorses muscle aches intermittently but the main concern of muscle fatigue in a generalized fashion. He said that he is able to complete activities he once did but has to do it at a slower pace with breaks sometimes because of the fatigue. He denies any joint pain with full range of motions at his hip joints. He endorses skin irritation and is currently being evaluated by Dermatology for dermatitis. He denies any dyspnea, orthopnea, dysphasia or change in voice. He denies any bowel or bladder changes, radiating pain from his neck or sensory level. On physical examination he was a pleasant man with intact mentation. 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 Finger flexions are strong bilaterally. Mild left hip flexion/extension weakness. Reflexes were normal throughout. Sensory and proprioception was nor mal. Labs were significant for elevated CK at 986, with a positive MICHAEL 1:160 and neg ds DNA ab otherwise normal the remaining labs were negative, which includes a myositis panel. Of note, Anti CN-1A was not tested. Today only EMG was completed and it was on the left tibialis anterior, gastrocnemius, vastus, iliopsoas and did not reveal any pathological units or e/o myopathy. At this time his elevated CK of 986 and symptoms of progressively worsening muscle aches and weakness are concerning for a myopathy. Less suspicious of IBM. Less likely to be muscle dystrophy and no family history. Few mitochondrial d/o present later in life so less concerned about a mitochondrial pathology. He is scheduled for a muscle biopsy and no medications recommended in the interim until the biopsy is completed. Potential biopsy sites include left calf (medial head) as it show both acute and chronicchanges. Alternatively the long head of the biceps. He was referred to rheumatology services. Can obtain Anti CN 1A in the future. Cell #: [phone] Home #: [phone] #Myopathy [x]Labs: --Myositis panel --Rheum panel: MICHAEL, RF, SSA/SSB --CK (986) --ca, mg, phos, tsh, hbA1c --Vit b12 (277), folate (13.6), esr (15) [x]MRI Leg: positive for myositis -schedule for muscle biopsy -ref to Rheum -f/u in 1 month to review and reassess. Case discussed with attending. Thank you for this consult. Please do not hesitate to contact me with additional questions or concerns. Oumou Dunne MD 11/25/2018 Clinical Neurophysiology Fellow of Neurology [facility] Neurology Staff Note I have reviewed the above fellows's history during the visit and I agree with the details as written. My physical examination confirms the fellow's findings. The assessment and plan were formulated in discussion with me at the time of the visit and I agree with them as documented. I participated in the EDX studies. Leon Osuna MD documented in this encounter Plan of Treatment Scheduled Referrals Name Type Priority Associated Diagnoses Order S chedule Referral to Outpatient Referral Routine Muscle fatig ue Ordered: Rheumatology Myositis, 11/25/2018 unspecified myositis type, unspecified site documented as of this encounter Visit Diagnoses Diagnosis Muscle fatigue Other musculoskeletal symptoms referable to limbs Myositis, unspecified myositis type, uns pecified site documented in this encounter
--- OUTSIDE RECORDS SUMMARY | 2020-09-05 03:29 | XMS_ITS | Encounter Summary ---
:1955 Author Organization [facility] [place] [address] Care Team Providers Name Role Phone Virgen Constantino MD Primary Care Provider Encounter Details Date Type Department Care Team Description 01/23/2020 Hospital Encounter XRay at [facility] Suzy Hernandez Muscle weakness of [address] [place] [address] Dr Jak DO lower extremity [facility] [address] [address] [phone] [place], [place] [address] [phone] Social History Tobacco Use Types Packs/Day Years Used Date Former Smoker Smokeless Tobacco: Never Used Comments: Quit in 2017 Alcohol Use Drinks/Week oz/Week Comments Yes 14-21 Cans of beer 14.0 - 21.0 1 beer a day Alcohol Habits Answer Date Recorded How often do you have a drink containing 4 or more times a w elem 08/15/2019 alcohol? How many drinks containing alcohol [...] Take 1 tablet by 90 tablet 3 03/2 11/2019 08/30/2020 Tablet mouth daily. metHOTREXate 2.5 mg Tablet [...] Priority Date/Time Associated Diagnosis Comme nts XR LUMBAR SPINE 2 Routine 01/23/2020 11:23 AM Muscle weakness of Results for this OR 3 VIEWS EDT lower extremity procedure ar e in the results section. documented in this encounter Results XR Lumbar Spine 2 Or 3 Views (Generic) (01/23/2020 11:23 AM EDT) Specimen Impressions Performed At 1. ??Mild multilevel degenerative disc disease. Multil evel facet [facility] RAD arthropathy. Thank you for letting us participate in the care of th is patient. For questions regarding this report, please contact the number below . ? Narrative Performed At EXAMINATION: XR LUMBAR SPINE 2 OR 3 VIEW S (GENERIC) [facility] CLINICAL HISTORY: claudication pain in buttocks with w alking. (as entered by ordering provider in the order requisiti on) TECHNIQUE: 2 views of the lumbar spine. AP and late ral views of lumbar spine. COMPARISON: DXA scan 12/08/2019 FINDINGS: Taking the last rib-bearing vertebral body to be T12, there are 5 nonrib-bearing lumbar-type vertebral bodies. There is lumbosacral tra nsitional anatomy with lumbarization of S1 and a rudimentary disc space at S1 -2. There is mild disc space narrowing at L2-3 and L4-5. There is trace retro listhesis of L2 on L3 and trace anterolisthesis of L3 on L4. There is facet hype rtrophy at all levels between L3 and S1. No focal vertebral body height loss . There are multiple surgical farzad and surgical clips projecting over th e right hemipelvis. Procedure Note Department, Radiology - 01/23/2020 11:32 AM EDT EXAMINATION: XR LUMBAR SPINE 2 OR 3 VIEWS (GENERIC) CLINICAL HISTORY: claudication pain in b uttocks with walking. (as entered by ordering provider in the order requisiti on) TECHNIQUE: 2 views of the lumbar spine. AP and late ral views of lumbar spine. COMPARISON: DXA scan 12/08/2019 FINDINGS: Taking the last rib-bearing vertebral claudette dy to be T12, there are 5 nonrib-bearing lumbar-type vertebral bodies. There is l umbosacral transitional anatomy with lumbarization of S1 and a rudimentary di sc space at S1-2. There is mild disc space narrowing at L2-3 and L4-5. There is trace retrolisthesis of L2 on L3 and trace anterolisthesis of L3 on L4. There is facet hypertrophy at all levels between L3 and S1. No focal vertebral claudette dy height loss. There are multiple surgical farzad and surgical clips proj ecting over the right hemipelvis. IMPRESSION 1. Mild multilevel degenerative disc di sease. Multilevel facet arthropathy. Thank you for letting us participate in the care of this patient. For questions regarding this report, please contact e number below. Performing Organization Address City/State/Zipcode Phone Number RAD [facility] [place] documented in this encounter Visit Diagnoses Diagnosis Muscle weakness of lower extremity Muscle weakness (generalized) documented in this encounter
--- OUTSIDE RECORDS SUMMARY | 2020-09-05 03:29 | XMS_ITS | Encounter Summary ---
:1955 [place] [address] Care Team Providers Name Role Phone Virgen Constantino MD Primary Care Provider Encounter Details Date Type Department Care Team Description 07/15/2019 Orders Only Neurology at [facility] Leon Osuna MD [facility] [place] [address] NEUROLOGY DEPT. [phone] [place], [place] [address] [phone] Social History Tobacco Use Types Packs/Day Years Used Date Former Smoker Smokeless Tobacco: Never Used Comments: Quit in 2017 Alcohol Use Drinks/Week oz/Week Comments Yes 14-21 Cans of beer 14.0 - 21.0 2-3 beers robert ly Sex Assigned at Date Recorded Not on file documented as of this encounter Plan of Treatment Not on filedocumented as of this encounter Results CK (08/15/2019 8:52 AM EST) Pathologist Sig nature CK, Total 1,231 (H) 0 - 200 unit/L [facility] Specimen Blood Resulting Agency Comment Spec In Lab Performing Organization Address City/State/Zipcode [place], [place] [address] [facility] documented in this encounter Visit Diagnoses Diagnosis Myopathy Myopathy, unspecified documented in this encounter
--- OUTSIDE RECORDS SUMMARY | 2020-09-05 03:29 | XMS_ITS | Encounter Summary ---
:1955 Author Organization [facility] [place] [address] Care Team Providers Name Role Phone Virgen Constantino MD Primary Care Provider Encounter Details Date Type Department Care Team Description 01/23/2020 Office Visit Rheumatology at [facility] Rosenda Faulkner Muscle weakness of [facility] MD Karla [place] [address] [place] [address] RHEUMATOLOGY [place], [place] [address] [phone] Social History Tobacco Use Types Packs/Day Years Used Date Former Smoker Smokeless Tobacco: Never Used Comments: Quit in 2017 Alcohol Use Drinks/Week oz/Week Comments Yes 14-21 Cans of beer 14.0 - 21.0 1 beer a day Alcohol Habits Answer Date Recorded How often do you have a drink containing 4 or more times a w [place] 08/15/2019 alcohol? How many drinks containing alcohol do you have 1 or 2 08/15/2019 on a typical day when you are drinking? How often do you have six or more drinks on one Never 08/15/2019 occasion? Sex Assigned at Date Recorded Not on file documented as of this encounter Last Filed Vital Signs Vital Sign Reading Time Taken Comments Blood Pressure 139/94 01/23/2020 9:44 AM EDT Pulse 72 01/23/2020 9:44 AM EDT Temperature 36.8 ??C (98.3 ??F) 01/23/2020 9:44 AM EDT Respiratory Rate - - Oxygen Saturation 98% 01/23/2020 9:44 AM EDT Inhaled Oxygen Concentration - - Weight 104.3 kg (230 lb) 01/23/2020 9:44 AM EDT Height 185.4 cm (6' 1) 01/23/2020 9:44 AM EDT Body Mass Index 30.34 01/23/2020 9:44 AM EDT documented in this encounter Progress Notes Rosenda Faulkner MD - 01/23/2020 10:30 AM EDT Rheumatology Outpatient follow up Visit: # Rheumatology History # Myositis # 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 - Then cramping in Left calf progressed to left thigh and over time to Rt leg- soreness and some weakness > left shoulder. LE> UE - Was evaluated by Neurology in [place]- EMG was inconclusive- CK was up, 900. - Not on supplements, No travel, infections, statins/niacin/fibrates/red yeast rice. 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 Noted a positive IMCHAEL of 1: 160. Also, CK elevated to [...] but the patient has never taken statins. - Neurology started Rx for Necrotizing myopathy. [...] weekly and Switched to Medrol 24 mg Interval History Patient here for follow up for above. Patient reports in the the past two months- There seems not much improvement in symptoms, seem worsening. Reports Cramping, soreness, tightness in both buttocks, back of the thighs, B/L Calves. Reports symptoms are mainly when he walks/ Ambulates, But very minimal symptoms at rest/ sitting. Denies tingling/numbness. Wakes him from sleep occ. Has some trouble getting up from sitting position and ambulating long distances. He denies any neck weakness. Denies any dysphonia, dysphagia,Choking, visual disturbances. Denies any new rash. Thinks he is losing muscle mass. He reports getting easily SOB, with ambulating short distances. Seems worse in the past few months.Some cough, No expectoration. He continues on MTX 15 mg weekly (for last 8 weeks), and daily Folic acid and MMF 2000 mg/Day, Medrol 28 mg (increased ~ 10 days ago). He denies any improvement in symptoms after increasing Medrol last week, although CK trending down 700 >342 He is feeling discouraged with no improvement in symptoms. His LFTs were elevated in recent check, he has completely stopped alc since then. Also he developed a LLE DVT in [...] 2.35) performed by Leon Osuna MD at [facility] Hernia repair Allergies: Cat dander; Dog [...] MCTD, Sjogren's, Scleroderma, gout/pseudogout Physical Examination: BP (!) 139/94 Pulse 72 Temp 36.8 ??C (98.3 ??F) Ht 185.4 cm (6' 1) Wt 104.3 kg (230 lb) SpO2 98% BMI 30.34 kg/m?? General: Well appearing, NAD Neck: Supple, no lymphadenopathy, full range of motion Cardiovascular: RRR, no m/r/g, normal S1/S2, 2+ radial artery pulses Lungs: CTA b/l no w/r/r Abdomen: Soft, nontender, nondistended Back: Nontender over the spine and SI joint areas Neuro: Alert and oriented x3. No focal weakness. Strength +5/5 throughout the bilateral UE and LEincluding testing for abduction of fingers, finger flexors, neck flexors. Sit to Stand testing 10 Skin: no obvious rashes or lesions noted in neck, face, hands, forearms, lower legs, back, upper chest Nails: no nail pitting or onycholysis, nail fold capillaries are grossly normal. MSK: No synovitis in any joints examined. Labs: CBCs: Recent Labs 11/21/19 0829 10/17/19 WBC 7.6 7.07 HGB 15.1 15.7 HCT 45.8 47.0 PLATELET 227 203 CMP components: Recent Labs 01/23/20 0853 11/25/19 1106 BUN 24* 18 CREATININE 0.83 0.89 Recent Labs 01/23/20 0853 NA 138 K 4.5 CL 97* CO2 29 BUN 24* CREATININE 0.83 Recent Labs 01/23/20 0853 AST 37 ALT 78* ALKPHOS 37* BILITOT 0.7 Recent Labs 01/23/20 0853 CALCIUM 9.7 Urine Protein:Creatinine Ratio: No results found for: UPROTCREAT Inflammatory Markers Trend: Sed Rate (mm/hr) Date Value 01/23/2020 13 CRP (mg/L) Date Value 01/23/2020 1.8 Uric Acid: No results found for: URICACID CPK: CK, Total (unit/L) Date Value 01/23/2020 342 (H) 11/21/2019 700 (H) 09/15/2019 565 (H) 08/15/2019 1,231 (H) 03/29/2019 1,189 (H) 10/26/2018 1,012 (H) TJ=876 (from outside labs) MICHAEL (no units) Date Value 10/26/2018 Pos, See Titer (A) RF (IU/mL) Date Value 10/26/2018 <10 Outside laboratory results from [facility] includes: Folate=30.6 Vitamin Q82=831 LC=404 ESR=15 Hemoglobin A1c=6.0 Lyme negative Imaging: MRI [...] possible Necrotizing myopathy. He was initially treated by Neurology with IVIG, which the patient thought was not effective and wasalso cost prohibitive. Patient reports he had the most improvement in muscle symptoms after he received IV solumedrol in May, effect lasted for a few days and then wore off. He was seen in Neurology in Aug 2019 and was started on Prednisone taper starting at 30 mg PO daily and Cellcept 500 mg POBID, the dose of which has been slowly up titrated to 2000 mg PO daily. Clinical case discussed at the Muscle meeting, Given persistence of symptoms patient was referred to Rheumatology. Due to incomplete resolution of muscle symptoms on above therapy, Patient was started on Methotrexate 15 mg weekly and daily folic acid and was switched to tapering dose of Medrol when initially seen in Rheumatology clinic in 11/2019. MMF 2000 mg/day continued as before.Recent labs- 6 weeks post MTX therapy repeat labs showed Mildly elevated LFTs- AST-44, ALT-100 and CK- 712. Patient today reports, not much improvement in muscle symptoms, reports worsening cramping, soreness, tightness in both buttocks, back of the thighs, B/L Calves - Interestingly symptoms are prominent when he walks/ Ambulates, But very minimal symptoms at rest/ sitting. Muscle strength on examination is 5/5 in all extremities, and recent CK has trended down to 342 on Medrol, although muscle symptoms continue. Given soreness/ muscle pain more with ambulation, (his CK today is 342), wonder if he has additionalpathology to explain his muscle symptoms- ? Claudication in buttocks /thighs due from possible Lumbar stenosis. Will obtain XR Lumbar imaging, consider MRI. If Lumbar pathology ruled out, then would favor escalating therapy for Myositis. Consider addition of Rituxan ( with recent elevated LFTs, and ongoing symptoms, minimal room to up titrate MTX). Also he reports SOB with minimal ambulation, Seems worse in the past few months. Some cough, No expectoration. Will obtain PFTs and CXR today. Discussed with Pulmonary PFTs will be performed today. Plan: - Check CXR, PFTs - Check Lumbar Xray, consider Lumbar MRI to r/o spinal stenosis - Await w/u from detailed above. If Lumbar pathology ruled out, then would favor escalating therapy for Myositis. Consider addition of Rituxan ( with recent elevated LFTs, and ongoing muscle symptoms, minimal room to up titrate MTX, also consider d/c MMF if Pulmonary involvement ruled out). - Continue Medrol 28 mg PO daily - Continue Methotrexate 15 mg weekly, Folic acid 1 mg PO daily - Follow up with Neurology as scheduled, next week - Follow up with PCP for elevated PSA Follow up in 6 weeks. Patient was discussed with Dr. Hernandez. Rosenda Faulkner MD Rheumatology Fellow- PGY 5 CC: Talon Constantino MD documented in this encounter Plan of Treatment Not on filedocumented as of this encounter Results Pulmonary Function Testing (01/23/2020 [...] ng capacity, and maximal respiratory pressures. ?? XR Lumbar Spine 2 Or 3 Views (Generic) (01/23/2020 11:23 AM EDT) Specimen Impressions Performed At 1. ??Mild multilevel degenerative disc disease. Multil evel facet RAD arthropathy. Thank you for letting us participate in the care of th is patient. For questions regarding this report, please contact the number below . ? Narrative Performed At EXAMINATION: XR LUMBAR SPINE 2 OR 3 VIEW S (GENERIC) RAD CLINICAL HISTORY: claudication pain in buttocks [...] For questions regarding this report, please contact [facility] number below. Performing Organization Address City/State/Zipcode Phone Number RAD [place] XR Chest PA & Lateral (Generic) (01/23/2020 11:15 AM EDT) Specimen Impressions Performed At No evidence of acute cardiopulmonary pro cess. [facility] Thank you for letting us participate in the care of [facility] patient. For questions regarding this report, please contact the number below . ? Electronically signed by: Nancy Feliciano MD, [facility] ([phone]), at 01/23/2020 11:19 AM Narrative Performed At EXAMINATION: XR CHEST PA AND LATERAL (GE NERIC) [facility] CLINICAL HISTORY: Shortness of breath. hx of myositis- evaluate for pathology TECHNIQUE: PA and lateral views of the chest COMPARISON: None FINDINGS: Cardiac and mediastinal contour are with in normal limits. The appearance pulmonary sarah are normal. The lungs are clear. No pne umothorax or pleural effusion. No pulmonary nodules. No suspicious osseous finding. Procedure Note Department, Radiology - 01/23/2020 11:24 AM EDT EXAMINATION: XR CHEST PA AND LATERAL (GENERIC) CLINICAL HISTORY: Shortness of breath. h x of myositis- evaluate for pathology TECHNIQUE: PA and lateral views of the chest COMPARISON: None FINDINGS: Cardiac and mediastinal contour are with in normal limits. The appearance pulmonary sarah are normal. The lungs are clear. No pneumothorax or pleural effusion. No pulmonary nodules. No suspicious osseous finding. IMPRESSION No evidence of acute cardiopulmonary pro cess. Thank you for letting us participate in the care of this patient. For questions regarding this report, please contact e number below. Electronically signed by: Nancy gonzales MD, [facility] ([phone]), at 01/23/2020 11:19 AM Performing Organization Address City/State/Zipcode Phone Number [place], [place] documented in this encounter Visit Diagnoses Diagnosis Muscle weakness of lower extremity Muscle weakness (generalized) documented in this encounter
--- OUTSIDE RECORDS SUMMARY | 2020-09-05 03:29 | XMS_ITS | Encounter Summary ---
:1955 Author Organization [facility] [place] [address] Care Team Providers Name Role Phone Virgen Constantino MD Primary Care Provider Encounter Details Date Type Department Care Team Description 01/23/2020 Hospital Encounter XRay at [facility] Suzy Hernandez Muscle weakness of [address] [place] [address] Dr Jak DO lower extremity [facility] [address] Dr [phone] [place], [place] [address] [phone] Social History Tobacco Use Types Packs/Day Years [...] Priority Date/Time Associated Diagnosis Comme nts XR CHEST PA AND Routine 01/23/2020 11:15 AM Muscle weakness of Results for this LATERAL EDT lower extremity procedure ar e in the results section. documented in this encounter Results XR Chest PA & Lateral (Generic) (01/23/2020 11:15 AM EDT) Specimen Impressions Performed At No evidence of acute cardiopulmonary pro cess. [facility] Thank you for letting us participate in the care of th is patient. For questions regarding this report, please contact the number below . ? Electronically signed by: Nancy Feliciano MD, [facility] Paredes [facility] ([phone]), at 01/23/2020 11:19 AM Narrative Performed At EXAMINATION: XR CHEST PA AND LATERAL (GE NERIC) [facility] CLINICAL HISTORY: Shortness of breath. hx of [...] below. Performing Organization Address City/State/Zipcode Phone Number [place], [place] documented in this encounter Visit Diagnoses Diagnosis Muscle weakness of lower extremity Muscle weakness (generalized) documented in this encounter
--- OUTSIDE RECORDS SUMMARY | 2020-09-05 03:29 | XMS_ITS | Encounter Summary ---
:1955 Author Organization [facility] [place] [address] Care Team Providers Name Role Phone Virgen Constantino MD Primary Care Provider Encounter Details Date Type Department Care Team Description 12/28/2019 Telephone Rheumatology at [facility] Rosenda Faulkner, [facility] [place] [address] [facility] [phone] RHEUMATOLOGY [place], [place] [address] [phone] Social History Tobacco Use Types Packs/Day Years Used Date Former Smoker Smokeless Tobacco: Never Used Comments: Quit in 2017 Alcohol Use Drinks/Week oz/Week Comments Yes 14-21 Cans of beer 14.0 - 21.0 1 beer a day Alcohol Habits Answer Date Recorded How often do you have a drink containing 4 or more times a w [place] 08/15/2019 alcohol? How many drinks containing alcohol do you have 1 or 2 08/15/2019 on a typical day when you are drinking? How often do you have six or more drinks on one Never 08/15/2019 occasion? Sex Assigned at Date Recorded Not on file documented as of this encounter Miscellaneous Notes Telephone Encounter - Rosenda Faulkner MD - 12/28/2019 9:52 AM EDT Called patient today. Patient reports cramps in legs at night. Also cramps in hands. He has been using Hylands leg cramp pill, also taking 500 mg.Magnesium at night, which is helping. He reports his calves seem leaner. Staying active, some difficulty when getting off of the floor. Tolerating MTX 15 mg weekly, started 4 weeks ago, with no significant ADRs. Patient likely experiencing side effects from Medrol-with cramps in his extremities, ? Muscle wasting. He was advised to continue staying active. Will slowly taper Medrol by 2 mg weekly, until he reaches a dose of 16 mg Medrol every day. We will obtain methotrexate labs, he requests this be faxed to [facility]. Attention to Dr. Constantino. If labs stable, consider up titrating methotrexate, and tapering Medrol further. We will follow-up with patient after we receive lab results. Patient prefers to be called on Land line- Phone number- [phone] Rosenda Faulkner MD Rheumatology Fellow documented in this encounter Plan of Treatment Scheduled Orders Name Type Priority Associated Diagnoses Order S chedule CK Lab Routine Muscle weakness of lower ext remity Expected: 12/28/2019, Expires: 12/27/2020 documented as of this encounter Visit Diagnoses Diagnosis Muscle weakness of lower extremity Muscle weakness (generalized) documented in this encounter
--- OUTSIDE RECORDS SUMMARY | 2020-09-05 03:29 | XMS_ITS | Encounter Summary ---
:1955 Author Organization [facility] [place] [address] Care Team Providers Name Role Phone Virgen Constantino MD Primary Care Provider Reason for Visit Reason Onset Date Comments Other 08/16/2019 Encounter Details Date Type Department Care Team Description 08/16/2019 Telephone Neurology at [facility] Leon Osuna MD [facility] [place] [address] NEUROLOGY DEPT. [phone] [place], [place] [address] [phone] Social History Tobacco Use Types Packs/Day Years Used Date Former Smoker Smokeless Tobacco: Never Used Comments: Quit in 2017 Alcohol Use Drinks/Week oz/Week Comments Yes 14-21 Cans of beer 14.0 - 21.0 1 beer a day Alcohol Habits Answer Date Recorded How often do you have a drink containing 4 or more times a w [place] 08/15/2019 alcohol? How many drinks containing alcohol do you have 1 or 2 08/15/2019 on a typical day when you are drinking? How often do you have six or more drinks on one Never 08/15/2019 occasion? Sex Assigned at Date Recorded Not on file documented as of this encounter Miscellaneous Notes Telephone Encounter - Snehal Best RN - 08/17/2019 11:11 AM EST Leon Osuna MD Muir, Carmen A, RN Caller: Unspecified (Yesterday, ??9:13 AM) ?? OK to refill. Supposed to be 20mg, two tablets every morning. So that would be 40mg/day. Thanks, E Pt notified. Not sleeping has been taking Melatonin 6 mg hs. Advised could ask pharmacist re dosing of Melatonin as I am not comfortable increasing past 5 mg. Can also try Tylenol PM or Benadryl but would not take every night. Pt agrees with the plan. elephone Encounter - Poly Flores - 08/16/2019 9:13 AM ESTClinical Palliative Care Nurse Practitioner Message Caller: Patient If not Pt / Relation to pt: Call back Number: Reason for call: Predisone dosing Message/information for the nurse: Patient reports Dr. Osuna verbally informed him to take two prednisone in the morning, but the prescription states to take one in the morning. Patient would like some clarification. Disposition of Call ?? Routine Message sent to the Nurse documented in this encounter Plan of Treatment Not on filedocumented as of this encounter Visit Diagnoses Diagnosis Necrotizing myopathy Other myopathies documented in this encounter
--- OUTSIDE RECORDS SUMMARY | 2020-09-05 03:29 | XMS_ITS | Encounter Summary ---
:1955 Author Organization [facility] [place] [address] Care Team Providers Name Role Phone Virgen Constantino MD Primary Care Provider Reason for Visit Auth/Cert Status Reason Specialty Diagnoses / Procedures Referred By Ministerio wallaceact Referred To Contact Diagnoses myelopathy Procedures PRO BIOPSY MUSCLE DEEP BIOPSY OF MUSCLE, DEEP, LOWER EXTREMITY ([place] [id number]) Encounter Details Date Type Department Care Team Description 12/16/2018 Surgery Main Operating Room Leon Ramon BI OPSY OF MUSCLE, DEEP, Angelina Christian [facility] LOWER EXTREMITY ([facility]) [facility] [address] [place] [address] [place] [address] [phone] Social History Tobacco Use Types Packs/Day Years Used Date Former Smoker Smokeless Tobacco: Never Used Comments: Quit in 2017 Alcohol Use Drinks/Week oz/Week Comments Yes 14-21 Cans of beer 14.0 - 21.0 2-3 beers robert ly Sex Assigned at Date Recorded Not on file documented as of this encounter Last Filed Vital Signs Vital Sign Reading Time Taken Comments Blood Pressure 113/67 12/16/2018 1:45 PM EDT Pulse - - Temperature 36.4 ??C (97.5 ??F) 12/16/2018 12:58 PM EDT Respiratory Rate 16 12/16/2018 1:45 PM EDT Oxygen Saturation 95% 12/16/2018 1:45 PM EDT Inhaled Oxygen Concentration - - Weight - - Height - - Body Mass Index - - documented in this encounter Medications at Time of Discharge Medication Sig Dispensed Refills Start Date End Date ibuprofen (ADVIL;MOTRIN) Take 400 mg by mouth 0 400 mg Tablet every 6 hours as needed for Pain. documented as of this encounter H&P Notes Leon Ramon MD - 12/16/2018 1:50 PM EDTNo H and P done as patient recently examined in clinic. documented in this encounter Nursing Notes Sam Vidales RN - 12/16/2018 1:50 PM [id number] procedure complete, Mastisol, Steri-strips folded 4x4 and Tegaderm dressing placed by Dr Ramon, post op instructions given to patient by Dr Ramon. Patient DC'd in wheelchair with , had no questions at time of DC documented in this encounter Miscellaneous Notes Op Note - Leon Ramon MD - 12/16/2018 1:50 PM EDT [facility] Operative Note Patient Name: Jeison Cervantes : [id number] MR#: [id number] Case Date: 12/16/2018 Surgeon: Surgeon(s) and Role: * Leon Ramon MD - Primary Preoperative diagnosis: myopathy Postoperative diagnosis: myopathy Surgeon: Surgeon(s) and Role: * LEON RAMON MD - Primary Procedure(s): BIOPSY OF MUSCLE, DEEP, LOWER EXTREMITY Local: 13 cc 1%lido with epi Estimated Blood Loss: 1cc (Please see the Surgical Encounter Summary for any Implant and Specimen details pertinent to this patient.) HPI/Surgical Indications: Procedure Description: A time-out was conducted just before the start of the procedure to verify the correct patient and procedure, procedure location, and all relevant clinical/critical information. The patient was put in a supine position on the operating table. his right Medial calve was prepped with antiseptic solution, and 13 mL of 1% lidocaine was injected into the skin overlying the vastus lateralis muscle. Sterile drapes were applied. With a 15.0 scalpel blade, the skin was incised and then the subcutaneous tissue bluntly dissected down to the muscle fascia, which was opened with Metzenbaum scissors. Four specimens of bright red muscle were obtained using muscle clamps, two of which were frozen at the bedside in liquid nitrogen. The muscle, fascia, and subcutaneous tissue were then approximated with 3-0 Vicryl sutures. The skin was closed with a running 3-0 Ethilon suture. Mastisol solution was applied to the skin and Steri-Strips applied over the wound. A sterile dressing was then applied. The patient tolerated the procedure with no obvious complications. Postoperative instructions were given to the patient. Procedure(s) (LRB): BIOPSY OF MUSCLE, DEEP, LOWER EXTREMITY (WRVU 2.35) (Left) Disposition: to home with his (Please see the Surgical Encounter Summary for any Implant and Specimen details pertinent to this patient.) Attestation: I did the procedure myself Case Date: 12/16/2018 LEON RAMON MD 12/16/2018 documented in this encounter Plan of Treatment Not on filedocumented as of this encounter Procedures Procedure Name Priority Date/Time Associated Diagnosis Comme nts SPECIMEN TO Routine 12/16/2018 1:21 PM Results for this PATHOLOGY EDT procedure are i n the results section. BIOPSY OF MUSCLE, Yes 12/16/2018 12:58 PM myopathy DEEP, LOWER EDT EXTREMITY (WRVU 2.35) SURGICAL PATHOLOGY Routine 12/16/2018 12:48 PM Re sults for this REPORT EDT procedure are i n the results section. documented in this encounter Results SPECIMEN TO PATHOLOGY (12/16/2018 1:21 PM EDT) Specimen AP Specimen Narrative Performed At Specimen requisition ordered. ??Separate [facility] Pathology report to follow LABORATORY Performing Organization Address City/State/Zipcode Phone Number [place] [phone] [facility]ORATORY Surgical Pathology Report (12/16/2018 12:48 PM EDT) Surgical [id number] ? Location: OR; [facility]; [facility] Pathology Report [facility] The signing pathologist has (i) examined the rel evant preparation(s) for the HOSPITAL specimen(s) and (ii) rendered or confirmed the diagnos is(es). LABORATORY . ? Electron Microscopy DIAGNOSIS Extensive myopathic changes with evidence of fiber degeneration, atrophy and internal disorganization. Electronically signed by: ??Matthew Basurto MD Verified: ??03/01/2019 ?Pathologist Performed at: ??-[facility] Dept. of Pathology, [place], [place] DISCUSSION 46 electron microscopic images of the muscle are anita zed. Muscle fibers show significa nt disruption of the internal contractile apparatus with loss of cross striatio ns and aggregation of myofilaments. ??Some of these most probably represent atrophic fibers. ??Some fibers show subsarcolemmal fibrillary aggregates (filamentous bodies) of uncertain signific ance (images 18,19). Mitochondria are of normal s ize, shape and number. ??There is no suggestion of a mitochondrial disorder. Glycogen storage in the fibers appears within normal l imits. Lipid content is mildly elev ated with fine lipid droplets associated with lipofuscin aggregates in many fibers. In rare fibers membranous ?? myelin whorls are noted . Images 11,31,32,33,35,37,40, 42,44: In a number of images there are apparent tubular aggregates of uncertain shaye ure in cytoplasm; they resemble so-called honeycomb structures. INTERPRETATION The changes seen here are no t specific for a single diagnostic entity. ??While there is no question of the sever ity of the alterations, it cannot be specified what exact myopathy these changes represent. ? Surgical Pathology DIAGNOSIS Skeletal muscle with extensive myopathic changes. ??Th ere is ongoing fiber degeneration and necrosis. ??In addition there is an element of denervation affecting some fibers clusters. Electronically signed by: ??Matthew Basurto MD Verified: ??03/01/2019 ?Pathologist Performed at: ??-[facility] Dept. of Pathology, [facility], [place], [place] DISCUSSION Paraffin embedded fragments of skeletal muscle stained with H&E show wide variation of fiber size and shape. ?? There are groups of small angulated fibers and atrophic fibers with nuclear chains. ?? There are scattered ne crotic fibers and some macrophage aggregates. ??Ra re pale fibers with loss of the normal striated appearance and coarsely clumped sports management internship al structures are noted.. ??There are occasional central nuclei and rare fiber split ting. ??There is no vasculitis or extensive leukocyte infiltration. . ADDITIONAL STUDIES Multiple frozen sections of skeletal muscle were obtained and stained with a variety of histochemical stains. ??The features exhibited are as follows: H&E stain: The fibers vary i n size and shape and there are some clusters of small, angulated fibers. ??Atrophi c fibers are present. ??Occasional large fibers exhibit pale staining and there is extensive disorganization of their internal architecture; some of these fibers have m acrophage infiltration. ?? One macrophage aggregate is noted between muscle fibers. Trichrome stain: There is no increase in endomesial co llagen. ??There are no convincing ragged red fiber s. ??Some fibers of the type noted above have significant disorganization of the inte rnal architecture with cytoplasmic pallor and clumping of internal structures. ??A number of fibers of varying size have dark, dense clumps that have formed in their cytoplasm that suggest tar gets. NADH stain: Both fiber types are present and vary in size and shape. ??There are a number of fibers that have destruction of the ir internal architecture with cytoplasmic pallor and clum ping of mitochondria. ??Other fibers show some central pallor with occasional dark clumps in the pale zone. ATPase stain (pH 4.3 & 9.4): ??Both type I and II fibers are present in a normal ratio. ??However, there newby s appear to be some fiber type grouping. ??The small angulated fibers are of bot h fiber types. ??The fibers with the disrupted internal architecture do no clearly titus as either type. PAS: The muscle fibers conta in a normal amount of glycogen. There is no evidence of a glycogen storage disorder . ??The fibers with disrupted architecture are devoid of glycogen. Oil red ??'O' stain: ??The s taining efficacy varies across the tissue sections. ??Where good staining is present th e size distribution and amount of lipid in the muscle fibers appears normal. Esterase: ??The fibers note above with internal disorganization show diffuse clumpy cytoplasmic staining. ??In addition the re are groups of darkly staining small angulated fibers suggesting some element of denervati on. Immunohistochemistry Studies: Formalin-fixed, paraffin-emb edded tissue sections are studied using the polymer technique with appropriate positive and negative controls. ?These IHC studies provide the pathologist wit h adjunctive diagnostic information. Antibody specificity has been verified by testin g antibodies on a series of in-house tissues with known immunohistochemical perform ance characteristics. The clinical interpretation of any antibody positive stain ing or its absence is evaluated within the context of clinical presentation, morp hology, histopathological criteria and other diagnostic tests. Block ??Antibody ??Result (Positive/Negative) A2 ??CD3 Scattered T-cells are present but do not form ??aggregates and are not directly associated with ??damaged fibers. A2 ??CD8 These lymphocytes are few in number and are ??scattered in the connective tissue between the ??fibers. A2 ??CD68 Macrophages surround or invade /dying fi bers ??and are scattered in the connective tissue. A2 ??CD138 No plasma cells are present. . ADDITIONAL STUDIES NOTE: ?? Electron microscopy is pending. ??Results will be provided as an addendum, when available. CLINICAL INFORMATION Specimen Submitted: A - Right medial gastrocnemius Clinical History and Diagnosis: Myopathy FROZEN SECTION see above SPECIMEN PROCESSING A - Labeled/Fixative: Right medial gastrocnemius, fres h. Quantity/Size: Four, averaging 1.3 x 0.4 cm. Tissue Description: Red-brown muscle. Sections/Processing: Train Clerk sections in 2 cassettes as follows: ? A1: ??Frozen in OCT for histochemistry. ? A2: ??Fixed in formalin for light microscopy. ??pps/sns Specimen Performing Organization Address City/State/Zipcode Phone Number [place] [phone] documented in this encounter Visit Diagnoses Not on filedocumented in this encounter Administered Medications Inactive Administered Medications - up to 3 most recent administrations Medication Order MAR Action Action Date Dose Rate Site lidocaine-EPINEPHrine 1 Given 12/16/2018 1:14 PM 13 mLs 19- Surgical Site %-1:200,000 injection EDT ONCE PRN, Starting Rosa Elena 12/16/18 at 1314, Until Rosa Elena 12/16/18 at 1552, Intra-Operative (Intra-Procedure), Routine documented in this encounter
--- OUTSIDE RECORDS SUMMARY | 2020-09-05 03:29 | XMS_ITS | Encounter Summary ---
:1955 Author Organization [facility] [address] Care Team Providers Name Role Phone Virgen Constantino MD Primary Care Provider Encounter Details Date Type Department Care Team Description 09/15/2019 Office Visit Neurology at [facility] Leon Osuna, Necrotizing myopathy [facility] [place] [address] [address] [place], [place] [address] [phone] Social History Tobacco Use Types Packs/Day Years Used Date Former Smoker Smokeless Tobacco: Never Used Comments: Quit in 2017 Alcohol Use Drinks/Week oz/Week Comments Yes 14-21 Cans of beer 14.0 - 21.0 1 beer a day Alcohol Habits Answer Date Recorded How often do you have a drink containing 4 or more times a w [place] 08/15/2019 alcohol? How many drinks containing alcohol do you have 1 or 2 08/15/2019 on a typical day when you are drinking? How often do you have six or more drinks on one Never 08/15/2019 occasion? 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 Got two days of IVIG in May. ??He received some Benadryl prior to the IVIG. ??Got solumedrol which made him feel great until it wore off. Couldn't sleep for 2 days. One month of prednisone 40mg now 30mg for two weeks. Definitely feeling stronger. Some RAYGOZA. CK down to 500 today from 1,200 one month ago. ?? Anti-CN1-A Ab for [employer] came back neg. ?? Balance still off. Muscles feel less weak and tight. Hylands leg cramps feel better. ?? Patient is bright and alert and looks comfortable. His weight is 245 pounds. ??Cranial nerves II through XII are intact. ??Sensory exam was normal. ??Deep tendon reflexes were normal and symmetric throughout with no signs of myelopathy. ??He had no focal weakness nor any atrophy and normal tone through out. Gait and stance were normal. Echocardiogram reportedly normal. US showed DVT. Now on Xaralta. I would get a CK, CBC and LFTs in one month via Dr. Constantino. I will see him back in two months. Asked him to taper the prednisone down to 20 mg/ day. Should go up on the cellcept to 1000mg in AM and 500 in the evening. Would ask Dr. Constantino to get PFTs in [facility]. documented in this encounter Plan of Treatment Not on filedocumented as of this encounter Visit Diagnoses Diagnosis Necrotizing myopathy Other myopathies documented in this encounter
--- OUTSIDE RECORDS SUMMARY | 2020-09-05 03:29 | XMS_ITS | Encounter Summary ---
:1955 Author Organization [facility] [place] [address] Care Team Providers Name Role Phone Virgen Constantino MD Primary Care Provider Encounter Details Date Type Department Care Team Description 10/26/2018 Laboratory Appointment Lab [facility]L [facility] [place] [address] Social History Tobacco Use Types Packs/Day Years Used Date Former Smoker Smokeless Tobacco: Never Used Comments: Quit in 2017 Alcohol Use Drinks/Week oz/Week Comments Yes 2-3 beers daily Sex Assigned at Date Recorded Not on file documented as of this encounter Plan of Treatment Not on filedocumented as of this encounter Procedures Procedure Name Priority Date/Time Associated Comments Diagnosis SS-B/LA ANTIBODY Routine 10/26/2018 2:35 PM Muscle fatigue Re sults for this EST procedure are i n the results section. SS-A/RO ANTIBODY Routine 10/26/2018 2:35 PM Muscle fatigue Re sults for this EST procedure are i n the results section. MISC BLAIR TEST-BLAIR Routine 10/26/2018 2:35 PM R esults for this EST procedure are i n the results section. DNA ANTIBODY Routine 10/26/2018 2:35 PM Results for this (DOUBLE-STRANDED) EST procedure are in the results section. MICHAEL TITER Routine 10/26/2018 2:35 PM Results for this EST procedure are i n the results section. RHEUMATOID FACTOR, Routine 10/26/2018 2:35 PM Muscle fatigue Results for this QUANT EST procedure are i n the results section. MICHAEL Routine 10/26/2018 2:35 PM Muscle fatigue Result s for this (MC/CGP/APD/NLH) EST procedure are in the results section. TSH Routine 10/26/2018 2:35 PM Muscle fatigue Result s for this EST procedure are i n the results section. PHOSPHORUS Routine 10/26/2018 2:35 PM Muscle fatigue Result s for this EST procedure are i n the results section. MAGNESIUM Routine 10/26/2018 2:35 PM Muscle fatigue Result s for this EST procedure are i n the results section. HEMOGLOBIN A1C Routine 10/26/2018 2:35 PM Muscle fatigue Resu lts for this EST procedure are i n the results section. CK Routine 10/26/2018 2:35 PM Muscle fatigue Result s for this EST procedure are i n the results section. CALCIUM Routine 10/26/2018 2:35 PM Muscle fatigue Result s for this EST procedure are i n the results section. documented in this encounter Results MICHAEL Titer (10/26/2018 2:35 PM EST) Pathologist Sig nature MICHAEL Titer Pos at 1:160 (A) [facility] Comment: [facility] Titer seen with Homogeneous/Diffuse jayden jacklyn. ??Is suggestive of autoantibodies LABORATORY to nDNA, histones, or DNA-associated proteins. Specimen Blood Resulting Agency Comment Spec In Lab Performing Organization Address City/State/Zipcode Phone Number [address] LABORATORY DNA Antibody (Double-Stranded) (10/26/2018 2:35 PM EST) Pathologist Sig nature DNA Ab (DS) Neg Neg [facility] LABORATORY Specimen Blood Resulting Agency Comment Spec In Lab Performing Organization Address City/[facility]/Zipcode Phone Number [address] LABORATORY [facility] Blair Test-Blair (10/26/2018 2:35 PM EST) [facility] Blair [facility] AG[facility] Test ? Result ? Flag ??Unit ?? RefValue [facility] LABORATORY MyoMarker Panel 3 Plus ??Anti-Ladonna-1 Ab ? <20 ?Units ??<20 ??PL-7 ? Negative ?Negative ??PL-12 ?Negative ?Negative ??EJ ? Negative ?Negative ??OJ ? Negative ?Negative ??SRP ?Negative ?Negative ??NE-2 ? Negative ?Negative ??Fibrillarin (U3 CLINICAL DATA MANAGEMENT MANAGER) ? Negative ?Negative ??MDA-5 (P140)(CADM-140) ? <20 ?Units ??<20 ??NXP-2 (P140) ? <20 ?Units ??<20 ??TIF1 GAMMA (P155/140) ?<20 ?Units ??<20 ??Anti-PM/Scl-100 Ab ? <20 ?Units ??<20 ??U2 snRNP ? Negative ?Negative ??Anti-U1-CLINICAL DATA MANAGEMENT MANAGER Ab ? <20 ?Units ??<20 ??Ku ? Negative ?Negative ??Anti-SS-A 52 kD Ab, IgG ?<20 ?Units ??<20 ? ADDITIONAL INFORMATION------- ?EIA Interpretation: ?Negative ? <20 Units ?Weak Positive ?20-39 Units ?Moderate Positive ??40-80 Units ?Strong Positive ?>80 Units ?This panel was developed and its performance ?characteristics validated by [facility]. There is no FD A approved ?assay for the above tests. As a lab developed te st (LDT), ?approval or clearance by the FDA is not required . This test ?may be used for clinical purposes and should not be ?regarded as investigational or for research. ??Anti-JAMILA 1, IgG ?<20 ?Units ??<20 ? ADDITIONAL INFORMATION------- ?EIA Interpretation: ?Negative ? <20 Units ?Weak Positive ?20-39 Units ?Moderate Positive ??40-80 Units ?Strong Positive ?>80 Units ?This panel was developed and its performance ?characteristics validated by [facility]. There is no FD A approved ?assay for the above tests. As a lab developed te st (LDT), ?approval or clearance by the FDA is not required . This test ?may be used for clinical purposes and should not be ?regarded as investigational or for research. ?Test Performed by: ?[facility] ?[id number] [facility] ?[place] [address] Specimen Blood Resulting Agency Comment Spec In Lab Performing Organization Address [facility] Phone Number [address] LABORATORY CK (10/26/2018 2:35 PM EST) Pathologist Sig [facility] CK, Total 1,012 (H) 0 - 200 unit/L [facility] LABORATORY Specimen Blood Resulting Agency Comment Spec In Lab Performing Organization Address [facility] Number [address] LABORATORY MICHAEL (LEB/CGP) (10/26/2018 2:35 PM EST) [facility] MICHAEL Pos, See Titer (A) Neg [facility] LABORATORY Specimen Blood Resulting Agency Comment Spec In Lab Performing Organization Address [facility] Phone Number [address] LABORATORY Rheumatoid factor, quant (10/26/2018 2:35 PM EST) [facility] RF <10 <=14 IU/mL [facility] LABORATORY Specimen Blood Resulting Agency Comment Spec In Lab Performing Organization Address [facility] Number [address] LABORATORY Magnesium (10/26/2018 2:35 PM EST) [facility] Magnesium 0.87 0.69 - 1.07 mmol/L [facility] LABORATORY Specimen Blood Resulting Agency Comment Spec In Lab Performing Organization Address [facility] Phone Number [address] LABORATORY Phosphorus (10/26/2018 2:35 PM EST) [facility] Phosphorus 3.4 2.5 - 4.5 mg/dL [facility] LABORATORY Specimen Blood Resulting Agency Comment Spec In Lab Performing Organization Address [facility] Phone Number MENG AGUEDA [address] LABORATORY Calcium (10/26/2018 2:35 PM EST) Pathologist Sig nature Calcium 9.8 8.5 - 10.5 mg/dL [facility] LABORATORY Specimen Blood Resulting Agency Comment Spec In Lab Performing Organization Address City/State/Zipcode Phone Number [facility] [place] [phone] [address] [facility] LABORATORY Hemoglobin A1c (10/26/2018 2:35 PM EST) Hemoglobin A1C 6.0 (H) 4.3 - 5.6 % [facility] AGUEDA Comment: [facility] Reference Range: LABORATORY 4.3 - 5.6% [...] diagnosis. Diagnosis and Classification of Diabetes Mellitus, [facility] 2013; 36: Suppl. 1, S67-74 Est Avg Gluc 126 mg/dL [facility] Comment: [facility] eAG equivalents for HbA1c percentages: [place] [...] on the ADA website. Aguila RODRIGUEZ, Anuj J, Sg R, et al. ??Tr anslating the A1C assay into estimated average glucose values. ??Diabetes Care 2008:31(8):147 3-1478. Specimen Blood Resulting Agency Comment Spec In Lab Performing Organization Address City/[facility] Phone Number [address] LABORATORY SS-A/Ro Antibody (10/26/2018 2:35 PM EST) SS-A/Ro Ab <0.2 <1.0 [facility] Comment: (Negative) U [facility] Test Performed by: LABORATORY [facility] [place] [address] Specimen Blood Resulting Agency Comment Spec In Lab Performing Organization Address [facility] Phone Number [address] LABORATORY SS-B/La Antibody (10/26/2018 2:35 PM EST) SS-B/La Ab <0.2 <1.0 MENG ROMEO Comment: (Negative) U [facility] Test Performed by: LABORATORY [address] [address] Specimen Blood Resulting Agency Comment Spec In Lab Performing Organization Address [facility] Phone Number [address] LABORATORY TSH (10/26/2018 2:35 PM EST) Pathologist Sig nature TSH 2.90 0.27 - 4.20 mlU/ML [facility] LABORATORY Specimen Blood Resulting Agency Comment Spec In Lab Performing Organization Address City/[facility] Phone Number [address] LABORATORY documented in this encounter Visit Diagnoses Diagnosis Muscle fatigue Other musculoskeletal symptoms referable to limbs documented in this encounter
--- OUTSIDE RECORDS SUMMARY | 2020-09-05 03:29 | XMS_ITS | Encounter Summary ---
:1955 Author Organization [facility] [place] [address] Care Team Providers Name Role Phone Virgen Constantino MD Primary Care Provider Reason for Visit Consultation (Routine) Status Reason Specialty Diagnoses / Referred By Referred To Contact Procedures Contact Closed Consult, Test Rheumatology Diagnoses Muscle fatigue Myositis, unspecified myositis type, unspecified site [facility] Rheumatology & Treat MD Oumou [address] [place] [address] DR Colbert [place] [phone] Phone: Fax: Encounter Details Date Type Department Care Team Description 12/31/2018 Office Visit [place] [facility] Watts MD [facility] [address] [phone] Muscle weakness of [facility] Pritchett [facility] [place] [address] [phone] [place] [address] Social History Tobacco Use Types Packs/Day Years Used Date Former Smoker Smokeless Tobacco: Never Used Comments: Quit in 2017 Alcohol Use Drinks/Week oz/Week Comments Yes 14-21 Cans of beer 14.0 - 21.0 2-[address] Sex Assigned at Date Recorded Not on file documented as of this encounter Last Filed Vital Signs Vital Sign Reading Time Taken Comments Blood Pressure 133/74 12/31/2018 9:08 AM EDT Pulse 72 12/31/2018 9:08 AM EDT Temperature 36.8 ??C (98.2 ??F) 12/31/2018 9:08 AM EDT Respiratory Rate - - Oxygen Saturation 98% 12/31/2018 9:08 AM EDT Inhaled Oxygen Concentration - - Weight 114.7 kg (252 lb 12.8 oz) 12/31/2018 9:08 AM EDT Height 185.4 cm (6' 1) 12/31/2018 9:08 AM EDT Body Mass Index 33.35 12/31/2018 9:08 AM EDT documented in this encounter Progress Notes Matthew Watts MD - 12/31/2018 9:30 AM EDTRheumatology Staff Note I have had the pleasure of interviewing and examining the patient independently. I find the assessment and plan of the fellow to be accurate and correct and endorse it As stated to patient and spouse, the histology and possibly EM are central to a diagnosis of this skeletal muscle process Matthew Watts Matthew Das MD - 12/31/2018 9:30 AM EDTRheumatology Staff Note I have had the pleasure of interviewing and examining the patient independently. I find the assessment and plan of the fellow to be accurate and correct and endorse it. There is nothing to support the diagnosis of lupus or synthetase syndrome or DM. Dx of polymyositis or other process dependent on pathology and possibly EM Matthew Watts Wing Lion DO - 12/31/2018 9:30 AM EDT Rheumatology Outpatient Consultation Visit: Reason for Consult: Jeison Cervantes is a 63 y.o. male who we are seeing at the request of Oumou Dunne for evaluation of muscle fatigue, myositis PCP: Talon Constantino MD [address] [place] [id number] HPI: Pt is a 63 yo male with PMHx as below presenting with chief complaint of muscle weakness with details below. Patient was referred from neurology whom he saw him recently on 11/25/[address] Oumou Mendes whom he saw for muscle fatigue symptoms. It was noted per the notation that symptoms began approximately 2 years ago to be in the right lower extremity and to begin to progress proximally eventually involving the upper extremities with resultant generalized muscle weakness with intermittent cramping.Reports he can still complete tasks, but takes longer to perform them. Symptoms are worse with strenuous work and exercise. Work-up per neurology's notation so far includes myositis panel, double-stranded DNA, rheumatoid factor, SSA, SSB, that were all with normal limits were negative. Noted a positive MICHAEL of 1: 160. Also, CK elevated to. Patient also underwent EMG nerve conduction studies with overall impression to be u nremarkable of the left upper and lower limbs, some soft myopathic pattern, no evidence of any fibrillations or positive sharp waves to suggest any active inflammatory myopathy or necrotizing myopathy. It was also noted needle EMG was done on 11/25/2017 of the left tibialis anterior gastrocnemius vastus iliopsoas. Gastrocnemius showed PSW which was likely incidental and not contributing to his generalized weakness. Otherwise normal motor unit potentials were observed. He also had an MRI of the thigh on 11/25/2018 that revealed myositis of multiple muscles in the bilateral calves more pronounced on the left than the right as well as presence of fatty infiltration of several left calf muscles indicating acute or chronic process with minimal fasciitis in the left lateral calf. Overall impression was that patient had mild left hip flexion extension weakness with normal reflexes and sensory perception along with proprioception in the setting of labs show indicated of of elevated CK at 986, positive MICHAEL with titer of 1: 160 and a negative myositis panel. EMG had been done more recently on the left tibialis anterior, gastrocnemius, vastus, iliopsoas and did not reveal any pathological units or evidence of myopathy per neurology's notation. Low suspicion noted for inclusion body myositis and or muscular dystrophy given no family history. Also, suspicion for mitochondrial disorders were low given stated that presentation later light in his last common. At the end of the vi sit the patient was scheduled for muscle biopsy as well as potentially obtaining anti-CM 1 a. The patient did undergo muscle biopsy on 12/16/[address] Leon esposito with biopsy site of the lower extremity left. 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 Nerve conduction/EMG report from 10/26/2018 reported overall impression of active denervation is confined to the left gastrocnemius muscle. There is no electrophysiological evidence of a myopathic process Currently, patient says sx first started about 2 years ago and worsening 1 year ago or so. He had a swollen left lower legs that brought him to his PCP and still swollen he says. He did report a injury with a log falling on his left lower leg and had an US done on it and said itwas fine. He said it looked fine as well and it was couple of years later that his leg swelled and symptoms started. The pattern of progression is described as left leg with cramping, then right leg cramping, then bilateral LE involvement with weakness and some soreness. Then involved his bilateral shoulder areas that are not as bad as his legs currently. He says more recently his left cheek was twitching. Also, mentioned some numbness in a patch of his skin in the left lateral thigh. Overall progression of the above sx took about 1 year. He says no more leg cramps now. Can still ambulate and get out of chair. He says has not affected his hands or forearms. He denies any neck weakness. Denies any dysphonia, dysphagia,respiratory symptoms, visual disturbances. He denies travel, infections, statins/niacin/fibrates/red yeast rice. 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 He also mentions he has hx of multiple ticks on him through time, but has never test positive for Lyme, which was also recently tested for. ROS: (Positive in bold, otherwise reported as negative): Constitutional: Fevers, chills, night sweats, fatigue unintentional weight loss CV: Chest pain, palpitations Pulm: SOB, wheezing, hemoptysis, coughs GI: N/V/D/C, abdominal pain, [...] History of hernia History of tobacco use Past Surgical History: Past Surgical History: Procedure Laterality Date ??? PRO BIOPSY MUSCLE DEEP Left 12/16/2018 BIOPSY OF MUSCLE, DEEP, LOWER EXTREMITY (WRVU 2.35) performed by Leon Osuna MD at [facility] Hernia repair Allergies: Cat dander; Dog dander; and Hay [grass pollen-bermuda, standard] Social History: Social History Tobacco Use ??? Smoking status: Former Smoker ??? Smokeless tobacco: Never Used ??? Tobacco comment: Quit in 2016 Substance Use Topics ??? Alcohol use: Yes Alcohol/week: 8.4 - 12.6 oz Types: 14 - 21 Cans of beer per week Comment: 2-3 beers daily ??? Drug use: Never Family Hx: No other known family history of rheumatological conditions including, but not limited to RA, PsA, SLE, MCTD, Sjogren's, Scleroderma, gout/pseudogout Physical Examination: BP 133/74 Pulse 72 Temp 36.8 ??C (98.2 ??F) Ht 185.4 cm (6' 1) Wt 114.7 kg (252 lb 12.8oz) SpO2 98% BMI 33.35 kg/m?? General: Well appearing, NAD HEENT: Mucous [...] abduction of fingers, finger flexors, neck flexors. Able to walk on heels and toes without issue. Patellar reflexes +2 symmetric and equal. Sit to Stand testing 12 Skin: no obvious rashes or lesions noted [...] PIP/DIP tenderness, fist complete at midline, good delinquency prevention social worker strength bilaterally, no gross deformities, no dactylitis -Hips: intact ROM, no tenderness over the lateral hip, gluteal area or anterior hips, -Knees: intact FROM, no effusions of the knee joint, no warmth, no tenderness, no erythema -Ankles: intact ROM, non-tender, no effusions/warmth -Feet: no MTP compression tenderness, no evidence of synovitis/enthesitis, no heal compression tenderness, no achilles tendon tenderness, no dactylitis Labs: CBCs: No results for input(s): WBC, HGB, HCT, PLATELET in the last 7068 hours. CMP components: No results for input(s): BUN, CREATININE in the last 7068 hours. No results for input(s): NA, K, CL, CO2, BUN, CREATININE in the last 168 hours. No results for input(s): AST, ALT, ALKPHOS, BILITOT, BILIDIR in the last 168 hours. No results for input(s): CALCIUM, PHOS in the last 168 hours. Urine Protein:Creatinine Ratio: No results found for: UPROTCREAT Inflammatory Markers Trend: No results found for: SEDRATE, CRP Uric Acid: No results found for: URICACID CPK: CK, Total (unit/L) Date Value 10/26/2018 1,012 (H) DC=787 (from outside labs) MICHAEL (no units) Date Value 10/26/2018 Pos, See Titer (A) RF (IU/mL) Date Value 10/26/2018 <10 Outside laboratory results [facility] includes: Folate=30.6 Vitamin L72=473 JN=668 ESR=15 Hemoglobin A1c=6.0 Lyme negative Imaging: MRI [...] Minimal fasciitis in the left lateral calf. Assessment: Pt is a 63 yo male presenting with chief complaint of muscle weakness in the bilateral LE (starting in the lower legs and moving proximally) with some involvement reported in the bilateral proximal UE,sparing the muscles of the hands, forearms, neck, eyes, pharyngeal muscles that came on gradually about 1-2 year ago with slow progression since. Weakness is primary sx with little to no soreness/myalgia reported. No paraesthesias associated other than a patch of numbness in the lateral upper thigh area reported of unclear etiology (?lateral cutaneous femoral nerve dysfunction). No radiculopathy sx reported. Ambulation reported to be intact with no recurrent falls. Also, ROS as above comprehensivelynegative for sx to suggest rheumatologic conditions such as RA, SLE, Scleroderma, Polymyositis, Dermatomyositis, IBM vasculitis, sarcoidosis given lack of joint pains, sores, photosensitivity, rashes, skin changes, nailfold abnormalities, eye inflammation hx. Exam overall unremarkable for any inflammatory findings currently with strength testing in his upperand lower extremities bilaterally +5/5 with full intact strength including neck flexors, finger flexors, finger abduction, heel and toe walk and sit and stand testing was fairly good today. No rash of DM observed or reported by pt. No synovitis. Labs overall with +MICHAEL of 1:160, which is likely of no major clinical value at this time as has no clear clinical correlate and is relatively lower titer, which ~5-10% of the population can have who do not have autoimmune conditions. He does have an elevatedCK, most recently 1,012 in 10/2018 that is currently unexplained for and a MRI of the LE that showed m yositis of the calf muscles again of unclear etiology. Of note, EMG has been done twice and overall not overtly revealing and myositis panel completed was overall negative. Pt id undergo muscle bx of the right lower calf (non EMG tested or injured leg) that is currently pending. Endocrine labs and elec trolytes appear to be WNL or low on DDX given no clear compatible clinical findings. Vitamin levels are also WNL. He denies any major inciting event other than a log that fell on his lower left leg a few years preceding his sx onset that didn't seem to result in permanent damage. Overall, suspicions of inflammatory myopathies such as PM, DM, IBM are low given lack of classic presentation for these conditions at present time and lack of serologies for support of these as well. In addition, his +MICHAEL is unlikely at this time to be linked to an underlying connective tissue diseasesuch as SLE given the above discussion. In addition, patient has denied ever being on statins, niacin, fibrates, red yeast rice products and sx are not consistent with a necrotizing type myopathy (ie. Statin-induced necrotizing myositis). Unclear why his CK is elevated and Myositis seen on MRI as of current. Muscle bx is pending and hopefull will provide further elucidation of etiology as discussed with patient that once back can follow back up with neurology to further discuss the results and management steps/workup. Plan: -Discussed with patient the ddx as above from rheumatologic perspective and the low suspicion at this time -Discussed with pt will await the muscle bx results to provide further insight into possible etiologies. -Advised him to follow up with Neurology for these results and further management steps as guided bytheir discretion. -No indications now for treatment as would depend on etiology and currently no rapid deterioration of sx -Advised to continue to monitor sx -F/U with Neurology -F/U with rheum as needed for now pending other workup. -Per patient request, will fax a copy of this note to his PCP, which was communicated with out secretaries for assistance. -Patient understood and agreed to the above. The patient was seen and discussed with attending, Dr. Mac Pritchett DO Rheumatology Fellow CC: Talon Constantino MD documented in this encounter Plan of Treatment Not on filedocumented as of this encounter Visit Diagnoses Diagnosis Muscle weakness of lower extremity Muscle weakness (generalized) documented in this encounter
--- OUTSIDE RECORDS SUMMARY | 2020-09-05 03:29 | XMS_ITS | Encounter Summary ---
:1955 Author Organization [facility] [place] [address] Care Team Providers Name Role Phone Virgen Constantino MD Primary Care Provider Reason for Visit Auth/Cert Status Reason Specialty Diagnoses / Procedures Referred By Ministerio ruano Referred To Contact Diagnoses myelopathy Procedures PRO BIOPSY MUSCLE DEEP BIOPSY OF MUSCLE, DEEP, LOWER EXTREMITY (WRVU 2.35) Encounter Details Date Type Department Care Team Description 12/16/2018 Hospital Encounter Main Operating Room Leon Ramon, Angelina [facility] [address] [place] [address] [place] [address] [phone] Social History Tobacco Use Types Packs/Day Years [...] Sam Vidales RN - 12/16/2018 1:50 PM [id number] procedure complete, Mastisol, Steri-strips folded 4x4 and Tegaderm dressing placed by Dr Ramon, post op instructions given to patient by Dr Ramon. Patient DC'd in wheelchair with , had no questions at time of DC documented in this encounter Miscellaneous Notes Op Note - Leon Ramon MD - 12/16/2018 1:[address] [facility] Operative Note Patient Name: Jeison Cervantes : [id number] MR#: [id number] Case Date: 12/16/2018 Surgeon: Surgeon(s) and Role: [...] Narrative Performed At Specimen requisition ordered. ??Separate [facility] Pathology report to follow LABORATORY Performing Organization Address City/State/Zipcode Phone Number [place] [address] HOSPITAL LABORATORY Surgical Pathology Report (12/16/2018 12:48 PM EDT) Surgical [id number] ? Location: OR; ORMN; [facility] Pathology Report [facility] The signing pathologist has (i) examined the rel evant preparation(s) for the HOSPITAL specimen(s) and (ii) rendered or confirmed the diagnos is(es). LABORATORY . ? Electron Microscopy DIAGNOSIS Extensive myopathic changes with evidence of fiber degeneration, atrophy and internal disorganization. Electronically signed by: ??Matthew Basurto MD Verified: ??03/01/2019 ?Pathologist Performed at: ??-[facility] Dept. of Pathology, [place], [place] DISCUSSION 46 electron microscopic images of [...] Basurto MD Verified: ??03/01/2019 ?Pathologist Performed at: ??-[facility] Dept. of Pathology, [facility] [place], [place] DISCUSSION Paraffin embedded fragments of skeletal muscle stained with H&E show wide variation of fiber size and shape. ?? There are groups of small angulated fibers and atrophic fibers with nuclear chains. ?? There are scattered ne crotic fibers and some macrophage aggregates. ??Ra re pale fibers with loss of the normal striated appearance and coarsely clumped technical internship al structures are noted.. ??There are [...] 0.4 cm. Tissue Description: Red-brown muscle. Sections/Processing: Patient Financial Services Manager sections in 2 cassettes as follows: ? A1: ??Frozen in OCT for histochemistry. ? A2: ??Fixed in formalin for light microscopy. ??pps/sns Specimen Performing Organization Address City/State/Zipcode Phone Number [place], [place] [address] HOSPITAL LABORATORY documented in this encounter Visit Diagnoses Not on filedocumented in this encounter
--- OUTSIDE RECORDS SUMMARY | 2020-09-05 03:29 | XMS_ITS | Encounter Summary ---
:1955 Author Organization [facility] [place] [place] [address] Care Team Providers Name Role Phone Virgen Constantino MD Primary Care Provider Reason for Visit Reason Onset Date Comments Prior Authorization 12/16/2018 Encounter Details Date Type Department Care Team Description 12/16/2018 Telephone Neurology at [facility] Leon Osuna, Prior Authorization [facility] [place] [address] [facility] [phone] NEUROLOGY DEPT. [place], [place] [address] [phone] Social History Tobacco Use Types Packs/Day Years Used Date Former Smoker Smokeless Tobacco: Never Used Comments: Quit in 2017 Alcohol Use Drinks/Week oz/Week Comments Yes 14-21 Cans of beer 14.0 - 21.0 2-3 beers robert ly Sex Assigned at Date Recorded Not on file documented as of this encounter Miscellaneous Notes Telephone Encounter - Snehal Best RN - 01/05/2019 4:45 PM EDTAnother message sent to software engineer advisor. No reply. In the interim we did get an insurance statement covering the MRI that was retro PA'd day of this call. elephone Encounter - Snehal Best RN - 12/16/2018 5:02 PM EDTI sent a message to our software engineer advisor, Samson Palma. Will await reply as we in Neuro do not obtain PA's for procedures done in Same Day Surgery. Called pt who states that he called insurance and that they said a PA was never done for the MRI either. They advised would waiver this time. Advised that I will check on both issues and let him know. Called Imaging PA and spoke with Malia. She notes that she will request that a retro be done as it appears to have been closed and never submitted. She will have this resubmitted in am and notes that insurance noting waiver often means they will accept a retro PA. If not he will not be billed and [facility] will absorb the cost. Pt advised he is thankful for follow up. Again will call next week with info from our plant health manager re Muscle Biopsy. elephone Encounter - Poly Flores - 12/16/2018 4:25 PM EDTClinical Power Transformer Assembler Message Caller: Patient If not Pt / Relation to pt: Call back Number: Best time to reach caller: Anytime Reason for call: Muscle Biopsy prior authorization Message/information for the nurse: Patient called stating that he received a notice from his insurance stating that the Muscle Biopsy he had done today did not have a pre approval done. He states that he was deferred to Neu[place] [facility]. I spoke with Akila but she has asked me to check with you. Do you do the pre approval for the muscle biopsy or know who does? Disposition of Call ?? Routine Message sent to the Nurse documented in this encounter Plan of Treatment Not on filedocumented as of this encounter Visit Diagnoses Not on filedocumented in this encounter
--- OUTSIDE RECORDS SUMMARY | 2020-09-05 03:29 | XMS_ITS | Encounter Summary ---
:1955 Author Organization [facility] [place] [address] Care Team Providers Name Role Phone Virgen Constantino MD Primary Care Provider Encounter Details Date Type Department Care Team Description 08/15/2019 Office Visit Neurology at [facility] Leon Osuna, Necrotizing myopathy [facility] [place] [address] NEUR[address] DEPT. [place], [place] [address] [phone] Social History Tobacco Use Types Packs/Day Years Used Date Former Smoker Smokeless Tobacco: Never Used Comments: Quit in 2017 Alcohol Use Drinks/Week oz/Week Comments Yes 14-21 Cans of beer 14.0 - 21.0 1 beer a day Alcohol Habits Answer Date Recorded How often do you have a drink containing 4 or more times a w [place] 08/15/2019 alcohol? How many drinks containing alcohol do you have 1 or 2 08/15/2019 on a typical day when you are drinking? How often do you have six or more drinks on one Never 08/15/2019 occasion? 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 Got two days of IVIG in May. He received some Benadryl prior to the IVIG. Got solumedrol which made him feel great until it wore off. Couldn't sleep for 2 days. ?? Has all his wood split now. ?? Anti-CN1-A Ab for [employer] came back neg. Balance off. Muscles feel weak and tight. Some pain. ?? Patient is bright and alert and looks comfortable. His weight is 250 pounds. Cranial nerves II through XII are intact. Sensory exam was normal. Deep tendon reflexes were normal and symmetric throughout with no signs of myelopathy. He had no focal weakness nor any atrophy and normal tone throughout. Gait and stance were normal. CK is about 1,200 today. ?? Can't take IVIG anymore. Too expensive and hasn't really worked. He was paying 20% of IVIG every time he got it. I think we should put him on cellcept 500mg bid and oral steroids 40 mg/day with presumed taper. Getting an echocardiogram is recommended. He will talk to Dr. Constantino. F/u in 1 mo. ?? documented in this encounter Plan of Treatment Not on filedocumented as of this encounter Visit Diagnoses Diagnosis Necrotizing myopathy Other myopathies documented in this encounter
--- OUTSIDE RECORDS SUMMARY | 2020-09-05 03:29 | XMS_ITS | Encounter Summary ---
:1955 Author Organization [facility] [place] [address] Care Team Providers Name Role Phone Virgen Constantino MD Primary Care Provider Encounter Details Date Type Department Care Team Description 11/18/2019 Orders Only Neurology at [facility] Leon Osuna, Autoimmune myopathy [facility] [place] [address] NEUR[address] DEPT. [place], [place] [address] [phone] Social History Tobacco Use Types Packs/Day Years Used Date Former Smoker Smokeless Tobacco: Never Used Comments: Quit in 2017 Alcohol Use Drinks/Week oz/Week Comments Yes 14-21 Cans of beer 14.0 - 21.0 1 beer a day Alcohol Habits Answer Date Recorded How often do you have a drink containing 4 or more times a w [place] 08/15/2019 alcohol? How many drinks containing alcohol do you have 1 or 2 08/15/2019 on a typical day when you are drinking? How often do you have six or more drinks on one Never 08/15/2019 occasion? Sex Assigned at Date Recorded Not on file documented as of this encounter Plan of Treatment Not on filedocumented as of this encounter Results Hepatic Function Panel (11/21/2019 8:29 AM EDT) Pathologist [facility] nature Total Protein 6.7 6.1 - 8.0 gm/dL [facility] Albumin 4.3 3.2 - 5.2 gm/dL [facility] AST 40 (H) 0 - 39 unit/L [facility] ALT 33 0 - 55 unit/L [facility] Alk Phos 37 (L) 40 - 130 unit/L [facility] Total Bilirubin 0.5 0.2 - 1.3 mg/dL [facility] Bili, Direct 0.1 0.0 - 0.3 mg/dL [facility] Specimen Blood Resulting Agency Comment Spec In Lab Performing Organization Address City/[facility] Cent[facility]ode Phone Number [address] LABORATORY CK (11/21/2019 8:29 AM EDT) Pathologist Sig nature CK, Total 700 (H) 0 - 200 unit/L [facility] Specimen Blood Resulting Agency Comment Spec In Lab Performing Organization Address [facility] Centercout Phone Number [address] LABORATORY documented in this encounter 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
--- OUTSIDE RECORDS SUMMARY | 2020-09-05 03:29 | XMS_ITS | Encounter Summary ---
:1955 Author Organization [facility] [place] [address] Care Team Providers Name Role Phone Virgen Constantino MD Primary Care Provider Encounter Details Date Type Department Care Team Description 03/29/2019 Office Visit Neurology at [facility] Leon Osuna, Myopathy (Primary Dx) [facility] [place] [address] NEUR[address]PT[address] [phone] [place], [place] [address] [phone] Social History Tobacco Use Types Packs/Day Years Used Date Former Smoker Smokeless Tobacco: Never Used Comments: Quit in 2017 Alcohol Use Drinks/Week oz/Week Comments Yes 14-21 Cans of beer 14.0 - 21.0 2-3 beers robert ly Sex Assigned at Date Recorded Not on file documented as of this encounter Last Filed Vital Signs Vital Sign Reading Time Taken Comments Blood Pressure 134/74 03/29/2019 1:23 PM EDT Pulse 84 03/29/2019 1:23 PM EDT Temperature - - Respiratory Rate - - Oxygen Saturation - - Inhaled Oxygen Concentration - - Weight 114.3 kg (252 lb) 03/29/2019 1:23 PM EDT Height 185.4 cm (6' 1) 03/29/2019 1:23 PM EDT reporte d Body Mass Index 33.25 03/29/2019 1:23 PM EDT documented in this encounter Progress Notes Leon Osuna MD - 03/29/2019 1:30 PM EDTJeison Cervantes is here in follow- up for his myopathy. He has been having some cramping. He complains more fatigue and a sense of weakness in his neck muscles. The biopsy read by Dr. Basurto is nondiagnostic but does show necrosing muscle fibers. 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 His CK was last checked and came back at 1012 in October. A myositis came back negative. He has been cutting and splitting wood and can still do this albeit with some difficulty. May have a slight forward deviation to his head suggesting some neck weakness and fatigue. He has no cranial nerve abnormalities. He has no age or atrophy. Sensory exam is intact. He has no fasciculations. Deep tendon reflexes were normal and symmetric throughout with no signs of neuropathy. He had no focal weakness normal tone. His gait was somewhat plodding. Patient clearly has a myopathic process going on. Going to recheck his muscle enzymes today and check antibody for inclusion body myositis. I will also check an IgA level today as I think we should try some intravenous immunoglobulin for inflammatory myopathy. We will have to get a preauthorization for IVIG and there may be an ongoing shortage of IVIG. I will see the patient back in approximately 6 weeks. If for some reason we are unable to get the IVIG we may want to try some intravenous Solu-Medrol. documented in this encounter Miscellaneous Notes Addendum Note - Tanisha Hanley - 03/29/2019 1:30 PM EDT Addended by: TANISHA HANLEY on: 03/29/2019 02:25 PM Modules accepted: Orders documented in this encounter Plan of Treatment Not on filedocumented as of this encounter Procedures Procedure Name Priority Date/Time Associated Comments Diagnosis MISCELLANEOUS LAB Routine 03/29/2019 2:34 Myopathy Result s for this REQUEST PM EDT procedure are i n the results section. IGA Routine 03/29/2019 2:33 Myopathy Results for this PM EDT procedure are i n the results section. CK Routine 03/29/2019 2:33 Myopathy Results for this PM EDT procedure are i n the results section. MISC SENDOUT Routine 03/29/2019 2:30 Results for this PM EDT procedure are i n the results section. documented in this encounter Results Miscellaneous Lab request (03/29/2019 2:34 PM EDT) Pathologist Sig [facility] Misc Lab Result Request received MENG AGUEDA in lab. [facility] Specimen Blood Resulting Agency Comment Spec In Lab Performing Organization Address City/[facility] Mexicocode Phone Number [address] LABORATORY IgA (03/29/2019 2:33 PM EDT) [facility] IgA 165 70 - 400 mg/dL [facility] Specimen Blood Resulting Agency Comment Spec In Lab Performing Organization Address [facility] Phone Number [address] LABORATORY CK (03/29/2019 2:33 PM EDT) Pathologist [facility] CK, Total 1,189 (H) 0 - 200 unit/L [facility] Specimen Blood Resulting Agency Comment Spec In Lab Performing Organization Address [facility] Mex[facility]ococt Phone Number [address] LABORATORY Misc Sendout (03/29/2019 2:30 PM EDT) Pathologist [facility] Misc Sendout See Note MENG ROMEO Comment: [facility] The ordered test is: Anti-cN-1A Ab SABRA VALDEZ Test performed by: RDL Reference [place], [id number] [facility] [id number] See Scanned Report. Specimen Blood Narrative Performed At This result has an attachment that is no t available. Performing Organization Address City/[facility] Mexicocode Phone Number [address] LABORATORY documented in this encounter Visit Diagnoses Diagnosis Myopathy - Primary Myopathy, unspecified documented in this encounter
--- OUTSIDE RECORDS SUMMARY | 2020-09-05 03:29 | XMS_ITS | Encounter Summary ---
:1955 Author Organization [facility] [place] [address] Care Team Providers Name Role Phone Virgen Constantino MD Primary Care Provider Reason for Visit Reason Onset Date Comments Prior Authorization 04/06/2019 IVIG (OUTSIDE) AT [facility] APPROVED 04/14/19-07/15/19 Encounter Details Date Type Department Care Team Description 04/06/2019 Telephone Neurology at [facility] Leon Ramon, Prior Authorization [facility] (IVIG (OUTSIDE) AT [facility] Drive [facility] APPROVED 04/14/19-07/15/19) [place] [address] NEUROLOGY DEPT. [place], [place] [address] [phone] Social History Tobacco Use Types Packs/Day Years Used Date Former Smoker Smokeless Tobacco: Never Used Comments: Quit in 2017 Alcohol Use Drinks/Week oz/Week Comments Yes 14-21 Cans of beer 14.0 - 21.0 2-3 beers robert ly Sex Assigned at Date Recorded Not on file documented as of this encounter Miscellaneous Notes Telephone Encounter - Snehal Best RN - 04/25/2019 12:41 PM EDTFaxed to [facility] to schedule. MyDh message to pt re call to schedule. elephone Encounter - Rashmi Mott - 04/25/2019 11:07 AM EDT elephone Encounter - Rashmi Mott - 04/25/2019 11:06 AM EDT elephone Encounter - Rashmi Mott - 04/20/2019 1:14 PM EDTSENDING ADDEND OFFICE NOTE FROM DR RAMON FOR RECONSIDERATION TO [phone]. elephone Encounter - Snehal Best RN - 04/20/2019 10:34 AM EDTTaylor at [facility] notified will need peer to peer. Will let her know outcome when available. elephone Encounter - Rashmi Mott - 04/20/2019 9:22 AM EDT elephone Encounter - Poly Flores - 04/18/2019 11:04 AM EDTClinical [place] Message Caller: Shanell If not Pt / Relation to pt: [facility] infusions Call back Number: [phone] Reason for call: IVIG PA Message/information for the nurse: Shanell called from [facility] stating that they have not received a response in regards to the IVIG authorization. She is getting concerned as the patient is due for infusions. She would like a call back to discuss. Disposition of Call ?? [place] Message Reason red arrow Message: Time sensitive Telephone Encounter - Rashmi Mott - 04/14/2019 9:39 AM EDTCALLED [phone] THIS IS WELL OVER $500. J-CODE GIVEN SHOULD HAVE EXPLAINED THIS CLEARLY. ENOC Cmumings PICKED UP. STARTED PA WITH ME OVER PHONE. NEED TO FAX CLINICALS TO [phone]. AUTH/REFERENCE #: [id number] (INFLAMMATORY MYOPATHY G72.49) elephone Encounter - Rashmi Mott - 04/14/2019 9:34 AM EDT elephone Encounter - Snehal Best RN - 04/12/2019 2:54 PM EDTLM for pt we have not received the Authorization yet thus have not faxed to [facility]. When we have that in writing I will fax to them and they will contact him to schedule. elephone Encounter - Shanell Wild - 04/12/2019 11:33 AM EDTClinical [place] Message Caller: Jeison Call back Number: [phone] Reason for call: IVIG infusions Message/information for the nurse: The pt called stating he would like someone to call him to get scheduled for his IVIG infusions. Disposition of Call ?? Routine Message sent to the Nurse elephone Encounter - Rashmi Mott - 04/07/2019 10:57 AM EDTFAXING PA REQUEST TO FAX NUMBER AT THE BOTTOM OF THE BELOW PA APPROVAL. [phone]. elephone Encounter - Rashmi Mott - 04/07/2019 10:51 AM EDTINSURANCE CARD SCANNED INTO THE SYSTEM: INSURANCE INFO CURRENTLY IN PT'S CHART: PA SCANNED INTO SYSTEM FOR A DIFFERENT PROCEDURE (FOR INFO-REFERENCE): elephone Encounter - Rashmi Mott - 04/07/2019 10:50 AM EDTREC'D CALL FROM INSURANCE. HARDBOARD PRESS OPERATOR CANNOT FIND PT IN THEIR SYSTEM. , ID #, ADDRESS, MIDDLEINITIAL, NOTHING. elephone Encounter - Rashmi Mott - 04/07/2019 8:18 AM EDTFAXING TO [phone] (MARKING THIS IS A J-CODE OUT PATIENT PROCEDURE.) [place]IS. elephone Encounter - Rashmi Mott - 04/07/2019 8:16 AM EDT elephone Encounter - Rashmi Mott - 04/06/2019 12:59 PM EDTFORM FILLED OUT AND FAXED TO [phone] ([facility] PROVIDERS). [id number] - PRIVIGEN ([facility] USE THIS NOW.) elephone Encounter - Rashmi Mott - 04/06/2019 12:58 PM EDT elephone Encounter - Rashmi Mott - 04/06/2019 12:57 PM Snehal Schwartz RN [place]mars[place], Amber L pt, has Inflammatory Myopathy. IVIG 45 gms daily x 5 to be done at [facility]. Assume it will need a peer to peer as this is an uncovered dx... tx,c documented in this encounter Plan of Treatment Not on filedocumented as of this encounter Visit Diagnoses Not on filedocumented in this encounter
--- OUTSIDE RECORDS SUMMARY | 2020-09-05 03:30 | XMS_ITS | Continuity of Care Document ---
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 DVT (deep venous thrombosis) (Discharge Diagnosis) - 03/22/20 Discharge Disposition: Home or Self Care Attending Physician: FADUMO MASON Admitting Physician: FADUMO MASON Referring Physician: Physician, Non-Staff [facility] Allergies, Adverse Reactions, Alerts No Known Medication Allergies Substance Reaction Severity Status cat and dog dander Active Assessment and Plan Extracted from: Title: Discharge Note Author: Jon Bhagat MD Date: 0 Discharge Plan 1.??Acute respiratory failure with hypox emia??J96.01 2.??Pneumocystis jiroveci pneumonia??B5 9 3.??Steroid-induced hyperglycemia??R73. 9 4.??Hyponatremia??E87.1 5.??Autoimmune necrotizing myopathy??G7 2.49 6.??DVT (deep venous thrombosis)??I82.4 09 Orders: acetaminophen, 650 mg = 2 tab(s), Oral, q4hr, PRN PRN Pain/Fever, 0 Refill(s) insulin isophane (NPH), 10 unit(s), Sub cutaneous, Daily, # 10 mL, 0 Refill(s), Pharmacy: [facility], 10 unit(s) Subcutaneous Daily predniSONE, 20 mg = 1 tab(s), Oral, Iliana ly, # 30 tab(s), 0 Refill(s), Pharmacy: [facility], 1 tab(s) Oral Daily sulfamethoxazole-trimethoprim, 1 tab(s) , Oral, MWF, # 30 tab(s), 0 Refill(s), Pharmacy: [facility], 1 tab(s) Oral MWF Discharge Patient Discharge Condition Good Discharge Disposition Home with [facility]NA Patient Education Hospitalist Discharge Instructions (Jeovany Mason) (JANNY) Deep Vein Thrombosis Pneumocystis Pneumonia Hospitalist Services Upon Discharge (JANA BRITTON) (Custom) Follow Up With When Contact Information Leon tom 05/16/2020 10:00 AM EDT [facility] [place] [address]- Business (1) Additional Instructions: Telephone offic e visit - 6 week follow up Talon Constantino 04/17/2020 12:00 PM E DT [address] [address]- P: F: Additional Instructions: Follow up your hospital stay with your primary care provider Functional Status 04/04/20 History of Fall in Last 3 Months [place] No Mobility Dean No limitation Ambulatory Devices Walker 03/22/20 Recent Travel History No recent travel Family Member Travel History No recent travel COVID-19 Screening None Medications acetaminophen 325 mg oral tablet 650 mg = 2 tab(s), Oral, q4hr, PRN PRN Pain/Fever, 0 Refill(s) Start Date: 04/04/20 Status: Orderedcalcium carbonate 648 mg oral tablet 648 mg = 1 tab(s), Oral, TID, 0 Refill(s) Start Date: 03/22/20 Status: Orderedfinasteride 5 mg oral tablet 5 mg = 1 tab(s), Oral, Daily, # 30 tab(s), 0 Refill(s) Start Date: 03/22/20 Status: Orderedfolic acid 1 mg oral tablet 1 mg = 1 tab(s), Oral, Daily, # 30 tab(s), 0 Refill(s) Start Date: 03/22/20 Status: OrderedHumalog (Lispro) Sliding Scale Medium Dose Algorithm Medium Dose Scale, Injection-Insulin, Subcutaneous, Start date: 04/03/20 20:30:00 EDT Start Date: 04/03/20 Stop Date: 04/03/20 Status: Completedinsulin isophane (NPH) 100 units/mL human recombinant subcutaneous suspension 10 unit(s), Subcutaneous, Daily, # 10 mL, 0 Refill(s), Pharmacy: [facility], 10 unit(s) Subcutaneous Daily Start Date: 04/04/20 Status: OrderedpredniSONE 20 mg oral tablet 20 mg = 1 tab(s), Oral, Daily, # 30 tab(s), 0 Refill(s), Pharmacy: [facility], 1 tab(s) Oral Daily Start Date: 04/04/20 Status: Orderedsulfamethoxazole-trimethoprim 800 mg-160 mg oral tablet 1 tab(s), Oral, MWF, # 30 tab(s), 0 Refill(s), Pharmacy: [facility], 1 tab(s) Oral MWF Start Date: 04/04/20 Status: Orderedtamsulosin 0.4 mg oral capsule 0.4 mg = 1 cap(s), Oral, Daily, # 30 cap(s), 0 Refill(s) Start Date: 03/22/20 Status: OrderedVitamin D3 2000 intl units oral capsule 2,000 IntUnit = 1 cap(s), Oral, Daily, 0 Refill(s) Start Date: 03/22/20 Status: OrderedXarelto 20 mg oral tablet 20 mg = 1 tab(s), Oral, qPM, # 30 tab(s), 0 Refill(s) Start Date: 03/22/20 Status: Ordered Mental Status 04/04/20 Sensory Perception Dean No impairment Level of Consciousness Alert Problem List Condition Effective Dates Status Health Status Informant Autoimmune necrotizing Active myopathy(Confirmed) DVT (deep venous Active thrombosis)(Confirmed) Results Laboratory List Name Date Blood Glucose Monitoring POC 04/04/20 Glucose POC1 04/04/20 Blood Glucose Monitoring POC 04/04/20 Glucose POC1 04/04/20 Glucose POC1 04/03/20 CK DH 03/30/20 Basic Metabolic Panel DH (BMP DH) 03/30/20 Basic Metabolic Panel DH (BMP DH) 03/29/20 CBC w/Diff DH 03/29/20 Basic Metabolic Panel DH (BMP DH) 03/27/20 CBC w/Diff DH 03/27/20 Culture Urine DH 03/27/20 Urinalysis, Culture if Indicated 03/27/20 Urine Crystals Analysis 03/27/20 Urine Microscopic 03/27/20 .Hemogram DH (CBC DH) 03/26/20 Most recent to oldest 1 2 3 [Reference Range]: Anion Gap DH [5-15 mmol/L] 18 mmol/L 14 mmol/L 15 mm ol/L *HI* (03/29/20 6:10 AM) (03/27/20 4:55 PM) (03/30/20 5:36 AM) Chloride Lvl DH [98-107 99 mmol/L 95 mmol/L 94 mmol/ L mmol/L] (03/30/20 5:36 AM) *LOW* *LOW* (03/29/20 6:10 AM) (03/27/20 4:55 PM) CO2 DH [22-31 mmol/L] 16 mmol/L 25 mmol/L 24 mmol/L *LOW* (03/29/20 6:10 AM) (03/27/20 4:55 PM) (03/30/20 5:36 AM) Est GFR DH [>=60] 95 1 94 2 96 3 (03/30/20 5:36 AM) (03/29/20 6:10 AM) (03/27/20 4:5 5 PM) Glucose Lvl DH [65-99 79 mg/dL 85 mg/dL 156 mg/dL mg/dL] (03/30/20 5:36 AM) (03/29/20 6:10 AM) *HI* (03/27/20 4:55 PM ) NRBC% auto DH [0-0 %] 0 % 0 % (03/29/20 6:10 AM) (03/27/20 4:55 PM) NRBC Absolute DH 0 0 *NA* *NA* (03/29/20 6:10 AM) (03/27/20 4:55 PM) Potassium Lvl DH [3.5-5.0 4.7 mmol/L 4.5 mmol/L 4.8 mm ol/L mmol/L] (03/30/20 5:36 AM) (03/29/20 6:10 AM) (03/27/20 4:5 5 PM) Sodium Lvl DH [135-145 133 mmol/L 134 mmol/L 133 mmol/ L mmol/L] *LOW* *LOW* *LOW* (03/30/20 5:36 AM) (03/29/20 6:10 AM) (03/27/20 4:5 5 PM) Urine Culture DH Produced by Clinical Reporting XR . Final Report [] Verifi ed: 03/28/2020 18:23 EDT 1,000-9,000 cfu/ml Gram Positive organisms , pro bable contaminant Order Comments f1: Urine Culture (Culture Urine DH) Urine Culture ordered as a result of micro scopic findings. 4 *NA* (03/27/20 3:02 PM) UA Crystals [None Seen] Present *ABN* (03/27/20 2:44 PM) BUN DH [10-20 mg/dL] 10 mg/dL 8 mg/dL 10 mg/dL (03/30/20 5:36 AM) *LOW* (03/27/20 4:55 PM) (03/29/20 6:10 AM) Calcium Lvl DH [8.5-10.5 9.1 mg/dL 9.6 mg/dL 9.3 mg/ dL mg/dL] (03/30/20 5:36 AM) (03/29/20 6:10 AM) (03/27/20 4:5 5 PM) Total CK DH [0-200 unit/L] 39 unit/L (03/30/20 5:45 PM) Urine Culture? Yes (03/27/20 2:44 PM) Creatinine [0.80-1.50 .79 mg/dL .80 mg/dL .76 mg/dL mg/dL] *LOW* (03/29/20 6:10 AM) *LOW* (03/30/20 5:36 AM) (03/27/20 4:55 PM) UA Bacteria [Few] Moderate *ABN* (03/27/20 2:44 PM) UA Bili [Negative] Negative *NA* (03/27/20 2:44 PM) UA Blood [Negative] Large *NA* (03/27/20 2:44 PM) UA Color [Yellow] Brown *ABN* (03/27/20 2:44 PM) UA Glucose [Negative] Negative *NA* (03/27/20 2:44 PM) UA Ketones [Negative] Negative *NA* (03/27/20 2:44 PM) UA Leuk Est [Negative] Trace *NA* (03/27/20 2:44 PM) UA Nitrite [Negative] Negative (03/27/20 2:44 PM) UA Protein [Negative] 30 *ABN* (03/27/20 2:44 PM) UA RBC 50+ *NA* (03/27/20 2:44 PM) UA Uric Ac Sandy [None Seen Moderate /HPF /HPF] (03/27/20 2:44 PM) UA Urobilinogen [<=1.0 1.0 Eu/dL Eu/dL] (03/27/20 2:44 PM) UA WBC 20-30 *NA* (03/27/20 2:44 PM) UA pH [5.0-9.0] 6.0 (03/27/20 2:44 PM) UA Spec Grav 1.025 (03/27/20 2:44 PM) Micro? Yes (03/27/20 2:44 PM) UA Clarity [Clear] Cloudy *NA* (03/27/20 2:44 PM) GFR - DH 110 5 109 6 112 7 [>=60] (03/30/20 5:36 AM) (03/29/20 6:10 AM) (03/27/20 4:5 5 PM) Glucose POC [<=600 mg/dL] 141 mg/dL 86 mg/dL 164 mg /dL (04/04/20 11:26 AM) (04/04/20 7:15 AM) (04/03/20 7: 47 PM) UA Squam Epi 5-10 *NA* (03/27/20 2:44 PM) Baso Absolute DH [0.0-0.2 0.0 x10(3)/mcL 0.0 x10(3)/mcL x10(3)/mcL] (03/29/20 6:10 AM) (03/27/20 4:55 PM) Basophil % DH 1 % 0 % *NA* *NA* (03/29/20 6:10 AM) (03/27/20 4:55 PM) Eos % DH 1 % 0 % *NA* *NA* (03/29/20 6:10 AM) (03/27/20 4:55 PM) Eos Absolute DH [0.0-0.5 0.0 x10(3)/mcL 0.0 x10(3)/mcL x10(3)/mcL] (03/29/20 6:10 AM) (03/27/20 4:55 PM) Hct DH [40.5-48.5 %] 32.5 % 30.6 % 31.8 % *LOW* *LOW* *LOW* (03/29/20 6:10 AM) (03/27/20 4:55 PM) (03/26/20 6:0 5 AM) Hgb DH [13.7-16.5 gm/dL] 10.4 gm/dL 9.9 gm/dL 10.3 gm /dL *LOW* *LOW* *LOW* (03/29/20 6:10 AM) (03/27/20 4:55 PM) (03/26/20 6:0 5 AM) Immature Gran % DH 0.50 % 1.10 % *NA* *NA* (03/29/20 6:10 AM) (03/27/20 4:55 PM) Immature Gran DH 0.02 x10(3)/mcL 0.06 x10(3)/mcL [0.00-0.05 x10(3)/mcL] (03/29/20 6:10 AM) *HI* (03/27/20 4:55 PM) Lymph % DH 12 % 6 % *NA* *NA* (03/29/20 6:10 AM) (03/27/20 4:55 PM) Lymph Absolute DH [0.9-3.2 0.5 x10(3)/mcL 0.3 x10(3)/mcL x10(3)/mcL] *LOW* *LOW* (03/29/20 6:10 AM) (03/27/20 4:55 PM) MCHC DH [32.0-35.7 pg] 32.0 pg 32.4 pg 32.4 pg (03/29/20 6:10 AM) (03/27/20 4:55 PM) (03/26/20 6:0 5 AM) MCH DH [27.5-32.1 pg] 31.6 pg 31.9 pg 31.9 pg (03/29/20 6:10 AM) (03/27/20 4:55 PM) (03/26/20 6:0 5 AM) MCV DH [82.9-93.1 fL] 98.8 fL 98.7 fL 98.5 fL *HI* *HI* *HI* (03/29/20 6:10 AM) (03/27/20 4:55 PM) (03/26/20 6:0 5 AM) Monocy Absolute DH 0.4 x10(3)/mcL 0.3 x10(3)/mcL [0.3-0.9 x10(3)/mcL] (03/29/20 6:10 AM) (03/27/20 4:55 PM) Monocyte % DH 11 % 5 % *NA* *NA* (03/29/20 6:10 AM) (03/27/20 4:55 PM) MPV DH [7.6-12.9 fL] 8.4 fL 8.4 fL 8.9 fL (03/29/20 6:10 AM) (03/27/20 4:55 PM) (03/26/20 6:0 5 AM) Neutro Absolute DH 3.0 x10(3)/mcL 4.9 x10(3)/mcL [1.7-6.1 x10(3)/mcL] (03/29/20 6:10 AM) (03/27/20 4:55 PM) Neutrophil % DH 74 % 88 % *NA* *NA* (03/29/20 6:10 AM) (03/27/20 4:55 PM) Platelet DH [145-357 164 x10(3)/mcL 171 x10(3)/mcL 166 x10(3)/ mcL x10(3)/mcL] (03/29/20 6:10 AM) (03/27/20 4:55 PM) (03/26/20 6:0 5 AM) RBC DH [4.58-5.54 3.29 x10(6)/mcL 3.10 x10(6)/mcL 3.23 x10(6)/mc L x10(6)/mcL] *LOW* *LOW* *LOW* (03/29/20 6:10 AM) (03/27/20 4:55 PM) (03/26/20 6:0 5 AM) RDWCV DH [11.4-13.8 17.1 x10(6)/mcL 16.9 x10(6)/mcL 16.5 x10(6)/ mcL x10(6)/mcL] *HI* *HI* *HI* (03/29/20 6:10 AM) (03/27/20 4:55 PM) (03/26/20 6:0 5 AM) RDWSD DH [36.0-45.0 fL] 61.8 fL 60.3 fL 59.6 fL *HI* *HI* *HI* (03/29/20 6:10 AM) (03/27/20 4:55 PM) (03/26/20 6:0 5 AM) WBC DH [4.0-9.5 4.1 x10(3)/mcL 5.6 x10(3)/mcL 4.1 x10(3)/mcL x10(3)/mcL] (03/29/20 6:10 AM) (03/27/20 4:55 PM) (03/26/20 6:0 5 AM) Blood Glucose, Capillary 141 mg/dL 86 mg/dL 164 mg/ dL POC [74-118 mg/dL] *HI* (04/04/20 7:31 AM) *HI* (04/04/20 11:25 AM) (04/03/20 8:39 PM) 1Result Comment: The eGFR was calculated using the CKD-EPI equation. As with all creatinine based estimates of kidney function, eGFR values calculated with the CKD-EPI equation are not accurate in patients with acute kidney failure, extremes of body mass or the acutely ill. [email or web address] Comment: The eGFR was calculated using the CKD-EPI equation. As with all creatinine based estimates of kidney function, eGFR values calculated with the CKD-EPI equation are not accurate in patients with acute kidney failure, extremes of body mass or the acutely ill. [email or web address] Comment: The eGFR was calculated using the CKD-EPI equation. As with all creatinine based estimates of kidney function, eGFR values calculated with the CKD-EPI equation are not accurate in patients with acute kidney failure, extremes of body mass or the acutely ill. [email or web address] Comment: Test performed at: [facility], Dept. of Pathology [place], [place] [address]Exupwt Comment: The eGFR was calculated using the CKD-EPI equation. As with all creatinine based estimates of kidney function, eGFR values calculated with the CKD-EPI equation are not accurate in patients with acute kidney failure, extremes of body mass or the acutely ill. [email or web address] Comment: The eGFR was calculated using the CKD-EPI equation. As with all creatinine based estimates of kidney function, eGFR values calculated with the CKD-EPI equation are not accurate in patients with acute kidney failure, extremes of body mass or the acutely ill. [email or web address] Comment: The eGFR was calculated using the CKD-EPI equation. As with all creatinine based estimates of kidney function, eGFR values calculated with the CKD-EPI equation are not accurate in patients with acute kidney failure, extremes of body mass or the acutely ill. [email or web address] Vital Signs Most recent to oldest 1 2 3 [Reference Range]: Temperature Oral [35.8-37.3 36.7 DegC 36.7 DegC 36.5 DegC DegC] (04/04/20 7:50 AM) (04/03/20 8:33 PM) (04/03/20 3:5 6 PM) Temperature Oral (DegF) 98.96 DegF 98.42 DegF 97.7 Deg F (04/03/20 4:53 AM) (04/01/20 9:10 PM) (03/29/20 4:5 3 AM) Apical Heart Rate [60-100 bpm] 100 bpm (03/31/20 4:51 PM) Peripheral Pulse Rate [60-100 124 bpm 95 bpm 11 5 bpm bpm] *HI* (04/03/20 8:33 PM) *HI* (04/04/20 7:52 AM) (04/03/20 3:57 PM) Heart Rate Monitored [60-100 94 bpm bpm] (04/01/20 9:10 PM) Respiratory Rate [14-20 br/min] 16 br/min 16 br/min 18 br/min (04/03/20 8:33 PM) (04/03/20 4:53 AM) (04/02/20 7:4 3 PM) Blood Pressure [90-140/60-90 118/80 mmHg 131/84 mmHg 108 /68 mmHg mmHg] (04/04/20 7:51 AM) (04/03/20 8:33 PM) (04/03/20 3:5 7 PM) Mean Arterial Pressure, Cuff 92 mmHg 82 mmHg 102 mmHg (04/04/20 7:51 AM) (04/03/20 3:57 PM) (04/03/20 7:1 6 AM) BP Site Right arm Left arm Left arm (04/03/20 8:33 PM) (04/03/20 4:53 AM) (04/02/20 7:4 3 PM) Patient Position BP Supine Supine Supine (04/03/20 8:33 PM) (04/02/20 7:43 PM) (04/01/20 3:0 4 AM) SpO2 [92-100 %] 94 % 94 % 91 % (04/04/20 7:52 AM) (04/03/20 8:33 PM) *LOW* (04/03/20 3:57 PM ) SpO2 Following Exercise [94-100 85 % %] *LOW* (03/28/20 3:48 PM) Pulse Rate after activity 98 bpm (03/23/20 3:35 PM) O2 Saturation after activity 92 % 88 % (03/28/20 3:48 PM) (03/23/20 3:35 PM) Oxygen Activity Discontinue Ongoing Ongoing (03/27/20 1:02 PM) (03/26/20 9:22 AM) (03/26/20 3:2 4 AM) Height 181.000 cm (03/22/20 2:32 PM) Height/Length Dosing 181.000 cm 181 cm 177.8 cm (03/22/20 2:32 PM) (03/22/20 2:15 PM) (03/22/20 2:05 P M) Weight 97.2 kg 97.6 kg 97.5 kg (04/04/20 5:40 AM) (04/02/20 5:03 AM) (03/31/20 8:4 8 PM) Weight Dosing 92.8 kg 92.8 kg 95.1 kg (03/22/20 2:32 PM) (03/22/20 2:15 PM) (03/22/20 2:05 P M) Scale Type Stand up Stand up Bed scale (04/04/20 5:40 AM) (03/29/20 5:04 AM) (03/22/20 2:15 PM) Social History Social History Type Response Smoking Status Former smoker, quit more moni n 30 days ago entered on: 03/22/20 Sex Hospital Discharge Instructions Patient [id number]/22/2020 16:18:05Hospitalist Services Upon Discharge (CASSIUS BRITTON) (Custom) Services Upon Discharge Patient is being discharged home with these services in place: HOME SERVICES: Home Services Discharge - Arrangements and orders for follow-up care Service Provider: [facility] Contact // fax [phone] Service(s) to be Provided: Nursing, Physical & occupational therapy Frequency: twice per week Additional Comments: Date of the face to face encounter: 04/04/2020 This visit was related to respiratory failure for which the patient needs skilled home health services.?? My clinical findings support the need for skilled: Nursing- to monitor use of new diabetic equipment & blood sugars Occupational Therapy- 2x weekly for independence with ADLs Physical Therapy- 2x weekly for strengthening, endurance, balance and functional independence, PT/INR monitoring The patient is homebound and requires considerable and taxing effort to leave their residence secondary to respiratory failure. To all home service providers, please contact the patient???s Primary Care Provider - Dr. Talon Constantino - with all follow up regarding your services. Reviewed and Electronically Signed By: Jon Bhagat MD Date: 04/04/2020 04/04/2020 11:36:33Hospitalist Discharge Instructions (Fadumo Mason) (JANNY)Hospitalist Discharge Instructions Instructions on Discharge to Home Why were you hospitalized: Physical rehab following respiratory failure _ You were in the hospital from 03/22 to 04/04/2020 _ Call your doctor or seek medical attention if you develop the following: Fevers, chills, coughing, shortness of breath, or chest tightness. _ Additional Instructions: Stay active and exercise regularly to stay healthy. Report to your doctor or seek medical attention if Blood glucose >250 or <80. Check your blood sugar twice a day and if you feel unwell (tremulous, sweaty, blurry vision, confused). Following services have been arranged for ongoing care: Home-based physical therapy Medications changes: Prednisone Trimethoprim-Sulfamethoxazole (Bactrim, antibiotic) Insulin Your follow-up appointments and upcoming tests: Primary care provider within 1 week And Rheumatology as scheduled. _ For any additional information: Call: [phone] To request access to [facility] visit: [email or web address] or email: [email or web address] 04/04/2020 11:26:11Deep Vein ThrombosisDeep Vein Thrombosis Deep vein thrombosis (DVT) is a condition in which a blood clot forms in a deep vein, such as a lower leg, thigh, or arm vein. A clot is blood that has thickened into a gel or solid. This condition is dangerous. It can lead to serious and even life-threatening complications if the clot travels to the lungs and causes a blockage (pulmonary embolism). It can also damage veins in the leg. This can result in leg pain, swelling, discoloration, and sores (post-thrombotic syndrome). What are the causes? This condition may be caused by: ??? A slowdown of blood flow. ??? Damage to a vein. ??? A condition that causes blood to clot more easily, such as an inherited clotting disorder. What increases the risk? The following factors may make you more likely to develop this condition: ??? Being overweight. ??? Being older, especially over age 60. ??? Sitting or lying down for more than four hours. ??? Being in the hospital. ??? Lack of physical activity (sedentary lifestyle). ??? , being in childbirth, or having recently given . ??? Taking medicines that contain estrogen, such as medicines to prevent . ??? Smoking. ??? A history of any of the following: ??? Blood clots or a blood clotting disease. ??? Peripheral vascular disease. ??? Inflammatory bowel disease. ??? Cancer. ??? Heart disease. ??? Genetic conditions that affect how your blood clots, such as Factor V Leiden mutation. ??? Neurological diseases that affect your legs (leg paresis). ??? A recent injury, such as a car accident. ??? Major or lengthy surgery. ??? A central line placed inside a large vein. What are the signs or symptoms? Symptoms of this condition include: ??? Swelling, pain, or tenderness in an arm or leg. ??? Warmth, redness, or discoloration in an arm or leg. If the clot is in your leg, symptoms may be more noticeable or worse when you stand or walk. Some people may not develop any symptoms. How is this diagnosed? This condition is diagnosed with: ??? A medical history and physical exam. ??? Tests, such as: ??? Blood tests. These are done to check how well your blood clots. ??? Ultrasound. This is done to check for clots. ??? Venogram. For this test, contrast dye is injected into a vein and X-rays are taken to check for any clots. How is this treated? Treatment for this condition depends on: ??? The cause of your DVT. ??? Your risk for bleeding or developing more clots. ??? Any other medical conditions that you have. Treatment may include: ??? Taking a blood thinner (anticoagulant). This type of medicine prevents clots from forming. It may be taken by mouth, injected under the skin, or injected through an IV (catheter). ??? Injecting clot-dissolving medicines into the affected vein (catheter- directed thrombolysis). ??? Having surgery. Surgery may be done to: ??? Remove the clot. ??? Place a filter in a large vein to catch blood clots before they reach the lungs. Some treatments may be continued for up to six months. Follow these instructions at home: If you are taking blood thinners: ??? Take the medicine exactly as told by your health care provider. Some blood thinners need to be taken at the same time every day. Do not skip a dose. ??? Talk with your health care provider before you take any medicines that contain aspirin or NSAIDs. These medicines increase your risk for dangerous bleeding. ??? Ask your health care provider about foods and drugs that could change the way the medicine works(may interact). Avoid those things if your health care provider tells you to do so. ??? Blood thinners can cause easy bruising and may make it difficult to stop bleeding. Because of this: ??? Be very careful when using knives, scissors, or other sharp objects. ??? Use an electric razor instead of a blade. ??? Avoid activities that could cause injury or bruising, and follow instructions about how to prevent falls. ??? Wear a medical alert bracelet or carry a card that lists what medicines you take. General instructions ??? Take sjyh-vql-yaxzrfe and prescription medicines only as told by your health care provider. ??? Return to your normal activities as told by your health care provider. Ask your health care provider what activities are safe for you. ??? Wear compression stockings if recommended by your health care provider. ??? Keep all follow-up visits as told by your health care provider. This is important. How is this prevented? To lower your risk of developing this condition again: ??? For 30 or more minutes every day, do an activity that: ??? Involves moving your arms and legs. ??? Increases your heart rate. ??? When traveling for longer than four hours: ??? Exercise your arms and legs every hour. ??? Drink plenty of water. ??? Avoid drinking alcohol. ??? Avoid sitting or lying for a long time without moving your legs. ??? If you have surgery or you are hospitalized, ask about ways to prevent blood clots. These may include taking frequent walks or using anticoagulants. ??? Stay at a healthy weight. ??? If you are a woman who is older than age 35, avoid unnecessary use of medicines that contain estrogen, such as some control pills. ??? Do not use any products that contain nicotine or tobacco, such as cigarettes and e-cigarettes. This is especially important if you take estrogen medicines. If you need help quitting, ask your health care provider. Contact a health care provider if: ??? You miss a dose of your blood thinner. ??? Your menstrual period is heavier than usual. ??? You have unusual bruising. Get help right away if: ??? You have: ??? New or increased pain, swelling, or redness in an arm or leg. ??? Numbness or tingling in an arm or leg. ??? Shortness of breath. ??? Chest pain. ??? A rapid or irregular heartbeat. ??? A severe headache or confusion. ??? A cut that will not stop bleeding. ??? There is blood in your vomit, stool, or urine. ??? You have a serious fall or accident, or you hit your head. ??? You feel light-headed or dizzy. ??? You cough up blood. These symptoms may represent a serious problem that is an emergency. Do not wait to see if the symptoms will go away. Get medical help right away. Call your local emergency services (911 in the [place] Do not drive yourself to the hospital. Summary ??? Deep vein thrombosis (DVT) is a condition in which a blood clot forms in a deep vein, such as a lower leg, thigh, or arm vein. ??? Symptoms can include swelling, warmth, pain, and redness in your leg or arm. ??? This condition may be treated with a blood thinner (anticoagulant medicine), medicine that is injected to dissolve blood clots,compression stockings, or surgery. ??? If you are prescribed blood thinners, take them exactly as told. This information is not intended to replace advice given to you by your health care provider. Make sure you discuss any questions you have with your health care provider. Document Released: 08/31/2006 Document Revised: 01/29/2018 Document Reviewed: 01/29/2018 [employer] Interactive Patient Education ?? 2020 [employer]. 04/04/2020 11:26:11Pneumocystis PneumoniaPneumocystis Pneumonia Pneumocystis pneumonia is an infection that affects the lungs. The infection is extremely rare in healthy people. It most frequently occurs in people whose natural disease-fighting system (immune system) is weak. What are the causes? This condition is caused by breathing in a fungus called Pneumocystis jiroveci. What are the signs or symptoms? Common symptoms of this condition include: ??? Fever. ??? Mild or dry cough. ??? Shortness of breath, especially with any physical activity. ??? Rapid breathing. How is this diagnosed? This condition may be diagnosed with tests, such as: ??? A test in which a sample of fluid or tissue from your lungs is looked at under a microscope (immunologic stain). To get the sample, you may be asked to cough into a tissue. Or, a small, flexible tube will be guided to your lungs through your nose or mouth to get the sample (bronchoscopy). ??? A chest X-ray. ??? Blood tests. How is this treated? This condition is treated with antibiotic medicine. Sometimes it is also treated with a medicine to reduce inflammation (steroid). Treatment may begin before test results confirm your diagnosis. This is because the condition is very serious. Treatment may take several weeks. Follow these instructions at home: ??? Take ipwe-vdh-ruouzhi and prescription medicines only as told by your health care provider. ??? Take your antibiotic medicine as told by your health care provider. Do not stop taking the antibiotic even if you start to feel better. ??? Do not smoke. Smoking can make your condition worse. ??? Keep all follow-up visits as told by your health care provider. This is important. How is this prevented? If you are at high risk for getting this condition again, your health care provider may prescribe anantibiotic to prevent this from happening. Contact a health care provider if: ??? Any of your symptoms are getting worse instead of better. ??? You have nausea or vomiting. ??? You have diarrhea. ??? You have a skin rash. This information is not intended to replace advice given to you by your health care provider. Make sure you discuss any questions you have with your health care provider. Document Released: 11/21/2003 Document Revised: 06/12/2017 Document Reviewed: 06/12/2017 [employer] Interactive Patient Education ?? 2020 [employer] Follow Up Care03/22/2020 08:09:23With:Talon Constantino Address: [address] [address]- P: F: When:04/17/2020 12:00:00 Comments:Follow up your hospital stay with your primary care providerWith:Leon Osuna Address: [facility] [place] [address]- Business (1) When:05/16/2020 10:00:00 Comments:Telephone office visit - 6 week follow up
--- OUTSIDE RECORDS SUMMARY | 2020-09-05 03:30 | XMS_ITS | Encounter Summary ---
:1955 Author Organization [facility] [place] [address] Care Team Providers Name Role Phone Virgen Constantino MD Primary Care Provider Reason for Visit Reason Comments Rash Consultation (Routine) Status Reason Specialty Diagnoses / Referred By Referred To Procedures Contact Contact Closed Consult, Test Dermatology Diagnoses has an appt with Dr. montes ? sooner at skin rash Talon Constantino [facility] Dermatology & Thuy New MD [address] Connection [address] [place] [address] 1 [id number] [place], [place] Phone: [phone] Phone: Encounter Details Date Type Department Care Team Description 05/04/2018 Office Visit Dermatology at [facility] Bashir Verdugo MD Vitiligo; [facility] Neurogenic pruritus [address] [place] [address] [facility] [phone] RD-DERMATOLOGY [place], [place] [address] [phone] Social History Tobacco Use Types Packs/Day Years Used Date Former Smoker Smokeless Tobacco: Never Used Sex Assigned at Date Recorded Not on file documented as of this encounter Patient Instructions Patient InstructionsGrLatisha bolton, GENOVEVA - 05/04/2018 10:00 AM EDT- Capsaicin cream: Apply 4-5 times daily to the left lower leg for two weeks, wash hands after application - Rx: Betamethasone cream 0.05%: Apply twice daily to the lower legg for two weeks, take one week off an repeat if needed for itching documented in this encounter Progress Notes Ady Espinoza MD - 05/04/2018 10:00 AM EDTI directly supervised Dr. Verdugo during this office visit. Dr. Verdugo presented the history and physicalexam to me. I then saw and examined this patient with Dr. Verdugo. We reviewed the history and pertinent details and I confirmed the physical findings. I agree with the details of the history and physical exam as documented in Dr. Verdugo's note. ADY ESPINOZA MD Staff Physician allBashir - 05/04/2018 10:00 AM EDT DERMATOLOGY - NEW PATIENT NOTE Date of service: 05/04/2018 Jeison Cervantes : 1955, 62 y.o. Chief Complaint: Chief Complaint Patient presents with ??? Rash HPI: Jeison Cervantes is a 62 y.o. male referred by Talon Constantino with the following concerns: Patient here for a rash on the left lower leg, noticed on an off for the past 15 years. Treats with witch cyril, which helps relieve the itch. Patient did go see vascular today and they feel it could be related to circulation. Previous creams used, hydrocortisone and anything OTC that was anti itch. Has used compression stockings will start using them again after seeing vascular today. Complains of leg cramps, swelling of the ankles. He also has areas of decreased pigment on the bilateral fingers, asymptomatic Relevant Skin History: - Okay to leave detailed message with results? Yes - Vitiligo Family History: Melanoma: None Relevant Social History: - 3 children - Retired Meds: Current Outpatient Prescriptions Medication Sig Dispense Refill ??? ibuprofen (ADVIL;MOTRIN) 400 mg Tablet Take 400 mg by mouth every 6 hours as needed for Pain. No current facility-administered medications for this visit. Allergies: No Known Allergies Review of Systems: - General: Feels well. - Skin: No other skin concerns. Examination: - Constitutional: Patient was alert, well-appearing and in no noticeable distress. - Skin: Focused examination of the bilateral lower legs. Diagnosis/Skin findings/Assessment/Plan: 1. Favor Neurogenic Pruritus: Patient with Left anterior lower leg, ill defined patchy erythema with admixed excoriations , atrophic white papules and plaques thought to be secondary to trauma/ excoriations, DDX also includes LsNA although less likely - Capsasion cream: Apply 4-5 times daily for two weeks. - Rx: Betamethasone cream 0.05%: Apply twice daily to the lower legs for two weeks, take one week off an repeat if needed. 2. Vitiligo: Patient with hypo and depigmented patches on the bilateral hands at the distal fingertips. Patient defers therapy at this time - reassurance RTC: Patient prefers to keep appointment with Dr. Montes 07/13/18 The following photos were obtained with patient consent: Note initiated by Latisha Hoffmann CMA. I performed the above scribed service and agree with the accuracy of the documentation in this encounter. Reviewed and signed by Bashir Verdugo MD Resident in Dermatology [facility] Patient seen in conjunction with staff metal treater: Ady Espinoza MD Section of Dermatology [facility] documented in this encounter Plan of Treatment Not on filedocumented as of this encounter Visit Diagnoses Diagnosis Vitiligo Neurogenic pruritus Other specified pruritic conditions documented in this encounter
--- OUTSIDE RECORDS SUMMARY | 2020-09-05 03:30 | XMS_ITS | Encounter Summary ---
:1955 Author Organization [facility] [place] [address] Care Team Providers Name Role Phone Virgen Constantino MD Primary Care Provider Reason for Referral Diagnostic Test (Routine) Status Reason Specialty Diagnoses / Referred By Referred To Procedures Contact Contact Specialty Service Radiology Diagnoses Muscle fatigue Vibha [facility] Rad Mri Requested Procedures MRI Myositis MD [facility] [address] [place] [id number] [place], [place] Phone: [phone] Reason for Visit Consultation (Routine) Status Reason Specialty Diagnoses / Referred By Referred To Procedures Contact Contact Consult, Test & Neurology Diagnoses OVER LAST YEAR PT HAS BEEN HAVING MUSCLE ACHES AND FATIGUE. HE DENIES ANY DIFFICULTY CLIMBING STAIRS OF DYSPHAGIA OR DIUMAL FLUCTUATION. HE HAS NEVER BEEN ON [place] MYOPATHY Too, [facility] 3[place] Treat Procedures NEUROMUSCULAR DIVISION: DR. RAMON/ DR. JAVIER Vogel MD [address] [place] [address] [place], [place] Phone: [phone] Phone: Fax: Encounter Details Date Type Department Care Team Description 10/26/2018 Procedure visit Neurology at [facility] Leon Ramon MD [facility] [place] [address] Muscle fatigue [facility] Oumou Dunne MD [facility] [place] [address] [phone] (Primary Dx) [place] [id number] Social History Tobacco Use Types Packs/Day Years Used Date Former Smoker Smokeless Tobacco: Never Used Comments: Quit in 2017 Alcohol Use Drinks/Week oz/Week Comments Yes 2-3 beers daily Sex Assigned at Date Recorded Not on file documented as of this encounter Last Filed Vital Signs Vital Sign Reading Time Taken Comments Blood Pressure 120/85 10/26/2018 12:25 PM EST Pulse 80 10/26/2018 12:25 PM EST Temperature - - Respiratory Rate - - Oxygen Saturation - - Inhaled Oxygen Concentration - - Weight 116.6 kg (257 lb) 10/26/2018 12:25 PM EST With s hoes Height 185.4 cm (6' 1) 10/26/2018 12:25 PM EST Reporte d Body Mass Index 33.91 10/26/2018 12:25 PM EST documented in this encounter Progress Notes Oumou Dunne MD - 10/26/2018 1:00 PM EST NEUROLOGY CLINIC [facility] [place] [address] Facsimile: 10/26/2018 Inital Consultation Patient name: Jeison Cervantes Date of : 1955 Referring provider: [place] [address] Reason for referral/Chief complaint: We are seeing this patient for evaluation of muscle fatigue atthe request of Dr. Gage. HPI: Jeison Cervantes is a 63 y.o. 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 He denies any pain when moving his neck from side to side, also denies any radiating pain. He has no loss/change in bowel/bladder function.His past medical history is significant for elevated PSA with neg biopsy x 2 with yearly serologicalsurveillance. He was born in [place], raised in [facility] [place] and now lives in [place] with his . Shewas previously employed as a [employer] for 27 years and endorses exposure to chemicals. Past Medical History: Diagnosis Date ??? 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 Venous insufficiency of left lower extremity 05/04/2018 -Dermatitis Past medical history: No family history on file. Social History Social History Narrative ??? Not on file Social History: alcohol 2-3 beers Outpatient Encounter Medications as of 10/26/2018 Medication Sig Dispense Refill ??? ibuprofen (ADVIL;MOTRIN) 400 mg Tablet Take 400 mg by mouth every 6 hours as needed for Pain. ??? augmented betamethasone dipropionate (DIPROLENE-AF) 0.05 % Cream Apply topically twice daily fortwo weeks to the left lower early, then take one week off and repeat if needed. (Patient not taking: Reported on 10/26/2018) 50 g 1 No facility-administered encounter medications on file as of 10/26/2018. Allergies Allergen Reactions ??? Cat Dander ??? 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 Gait: Normal gait with symmetric arm swing and narrow base. Able to heel and toe walk with normal tandem gait. Data: Labs: Previous NCS/EM10/26/2018 Needle EMG.NCS was not completed. EMG was completed and it was on the left tibialis anterior, gastrocnemius, vastus, iliopsoas. Gastrocnemius showed PSW which is likely incidental and noncontributing to his generalized weakness. Otherwise, normal motor unit potentials were observed. Assessment and Plan: Jeison Cervantes is a [...] of motions at his hip joints. He also denies any new rashes but he is currently being evaluated by Dermatology for dermatitis. He denies any dyspnea, orthopnea, dysphasia or change in voice. He denies any bowel or bladder changes, radiating pain from his neck or sensory level. On physical examination he was a pleasant man with intact mentation. 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 He also had bilateral weakness of hip flexors. Reflexes were normal throughout. Sensory and proprioception was normal. Labs were significant for elevated CK at 986 otherwise normal vitamin D, folate and ESR levels. Today only EMG was completed and it [...] so less concerned about a mitochondrial pathology. #Myopathy -Labs: --Myositis panel --Rheum panel: MICHAEL, RF, SSA/SSB --CK (986) --ca, mg, phos, tsh, hbA1c --Vit b12 (277), folate (13.6), esr (15) -facial xray in preparation for MRI for myositis evaluatoin. -MRI Leg to r/o inflammatory process -potential muscle biopsy -f/u in 1 month to review and reassess. Case discussed with attending. Thank you for this consult. Please do not hesitate to contact me with additional questions or concerns. Oumou Dunne MD 10/26/2018 Clinical Neurophysiology Fellow of Neurology [facility] Neurology Staff Note I have reviewed the above fellows's history during the visit and I agree with the details as written. My physical examination confirms the fellow's findings. The assessment and plan were formulated in discussion with me at the time of the visit and I agree with them as documented. I participated in the EDX studies. Leon Ramon MD documented in this encounter Plan of Treatment Not on filedocumented as of this encounter Results MRI Myositis (11/25/2018 8:41 AM EDT) Specimen Impressions Performed At 1. 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 2. ??Presence of fatty infiltration of several left ca lf muscles indicates acute on chronic process. 3. ??Minimal fasciitis in the left later al calf. Thank you for letting us participate in the care of th is patient. For questions regarding this report, please contact the number below . ? Narrative Performed At EXAMINATION: MRI MYOSITIS ? [facility] RAD CLINICAL HISTORY: Left Leg. p/w muscle [...] For questions regarding this report, please contact [facility] number below. Electronically signed by: Sujatha Barahona [facility] ([phone]), at 11/25/2018 2:28 PM Performing Organization Address City/State/Zipcode Phone Number RAD [place], [place] XR Facial Bones less than 3 views (10/26/2018 2:44 PM EST) Specimen Impressions Performed At No radiopaque foreign body in the orbits . [facility] Thank you for letting us participate in the care of [facility] patient. For questions regarding this report, please contact the number below . ? Narrative Performed At EXAMINATION: XR FACIAL BONES LESS THAN 3 VIEWS [facility] CLINICAL HISTORY: r/o shrapnel, in prep for [...] contact e number below. Electronically signed by: Keaton Richards [facility] ([phone]), at 10/26/2018 3:18 PM Performing Organization Address [facility] Phone Number [place], [place] SS-B/La Antibody (10/26/2018 2:35 PM EST) SS-B/La Ab <0.2 <1.0 [facility] Comment: (Negative) [facility] Test Performed by: LABORATORY [facility] [address] [place] [address] Specimen Blood Resulting Agency Comment Spec In Lab Performing Organization Address [facility]/Zipcode Phone Number [facility] [address] LABORATORY SS-A/Ro Antibody (10/26/2018 2:35 PM EST) SS-A/Ro Ab <0.2 <1.0 [facility] Comment: (Negative) [facility] Test Performed by: LABORATORY [facility] [address] [place] [address] Specimen Blood Resulting Agency Comment Spec In Lab Performing Organization Address City/State/Zipcode Phone Number [facility] R[facility] [place], [place] [address] [place] [address] LABORATORY Hemoglobin A1c (10/26/2018 2:35 PM EST) Hemoglobin A1C 6.0 (H) 4.3 - 5.6 % [facility] Comment: [facility] Reference Range: LABORATORY 4.3 - 5.6% 5.7 [...] diagnosis. Diagnosis and Classification of Diabetes Mellitus, [facility] 2013; 36: Suppl. 1, S67-00 Est Avg Gluc 126 mg/dL [facility] Comment: [facility] eAG equivalents for HbA1c percentages: [place] BORATORY [...] Comment Spec In Lab Performing Organization Address City/[facility] Phone Number [address] LABORATORY Calcium (10/26/2018 2:35 PM EST) Pathologist [facility] Calcium 9.8 8.5 - 10.5 mg/dL [facility] LABORATORY Specimen Blood Resulting Agency Comment Spec In Lab Performing Organization Address [facility] Phone Number [address] LABORATORY Phosphorus (10/26/2018 2:35 PM EST) Pathologist [facility] Phosphorus 3.4 2.5 - 4.5 mg/dL [facility] LABORATORY Specimen Blood Resulting Agency Comment Spec In Lab Performing Organization Address [facility] Phone Number [address] LABORATORY Magnesium (10/26/2018 2:35 PM EST) Pathologist [facility] Magnesium 0.87 0.69 - 1.07 mmol/L [facility] LABORATORY Specimen Blood Resulting Agency Comment Spec In Lab Performing Organization [facility] Number [address] LABORATORY Rheumatoid factor, quant (10/26/2018 2:35 PM EST) [facility] RF <10 <=14 IU/mL [facility] LABORATORY Specimen Blood Resulting Agency Comment Spec In Lab Performing Organization Address [facility] Phone Number [address] LABORATORY MICHAEL (LEB/CGP) (10/26/2018 2:35 PM EST) Pathologist [facility] MICHAEL Pos, See Titer (A) Neg [facility] LABORATORY Specimen Blood Resulting Agency Comment Spec In Lab Performing Organization Address [facility] Phone Number [address] LABORATORY CK (10/26/2018 2:35 PM EST) Pathologist Sig nature CK, Total 1,012 (H) 0 - 200 unit/L [facility] LABORATORY Specimen Blood Resulting Agency Comment Spec In Lab Performing Organization Address City/[facility]/Zipcode Phone Number [address] LABORATORY TSH (10/26/2018 2:35 PM EST) Pathologist [facility] TSH 2.90 0.27 - 4.20 mlU/ML [facility] LABORATORY Specimen Blood Resulting Agency Comment Spec In Lab Performing Organization Address City/State/Zipcode Phone Number [address] LABORATORY documented in this encounter Visit Diagnoses Diagnosis Muscle fatigue - Primary Other musculoskeletal symptoms referable to limbs documented in this encounter
--- OUTSIDE RECORDS SUMMARY | 2020-09-05 03:30 | XMS_ITS | Encounter Summary ---
:1955 Author Organization [facility] [place] [address] Care Team Providers Name Role Phone Virgen Constantino MD Primary Care Provider Reason for Visit Reason Comments Venous Stasis pt here for consult venous i nsuff Consultation (Routine) Status Reason Specialty Diagnoses / Referred By Referred To Procedures Contact Contact Closed Consult, Test Vascular Surgery Diagnoses venous insufficiency of left leg [facility] [facility] Treat Talon New MD Surg 3v Connection [address] [place], [place] [address]a [facility] [address] [phone] Phone: Encounter Details Date Type Department Care Team Description 05/04/2018 Office Visit Vascular Surgery at [facility] [place] Left ankle swelling; [facility] B, 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[employer] Venous insufficiency of left lower extre [facility] [address] [place] [facility] [id number] [place] [address] [phone] Social History Tobacco Use Types Packs/Day Years Used Date Former Smoker Smokeless Tobacco: Never Used Sex Assigned at Date Recorded Not on file documented as of this encounter Last Filed Vital Signs Vital Sign Reading Time Taken Comments Blood Pressure 146/95 05/04/2018 8:04 AM EDT Pulse 79 05/04/2018 8:04 AM EDT Temperature - - Respiratory Rate 18 05/04/2018 8:04 AM EDT Oxygen Saturation - - Inhaled Oxygen Concentration - - Weight 113.4 kg (250 lb) 05/04/2018 8:04 AM EDT Height 185.4 cm (6' 1) 05/04/2018 8:04 AM EDT Body Mass Index 32.98 05/04/2018 8:04 AM EDT documented in this encounter Progress Notes Hoda Galicia, 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[employer] - 05/04/2018 8:00 AM EDT This is a new patient to the practice who is being evaluated for left ankle swelling and was referred by Talon Constantino MD. 62 yo male reports no real medical problems. States 5 years ago dropped log on left early area and has had swelling in area and ankle since that wax's and wan's. He has tried OTC compression with little relief. C/o itching early area on left. C/o over last years B LE weakness and muscle cramping numbness in thihgs L>R. Has seen chiropractor in past. And has tried OTC Mg, olive oil etc. Ibuprofen three time daily seems to help but he has been taking this for several weeks. Denies chest pain,ID, CVA, TIa's, DVT, SOB, claudication. C/o left lateral calf bulge, not pain or redness. 4 years ago U/S negative for DVT. He states he has appointment in dermatology for itching left medial early area. PMHx: Past Medical History: Diagnosis Date ??? 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 Venous insufficiency of left lower extremity 05/04/2018 Social Hx: Social History Substance Use Topics ??? Smoking status: Former Smoker ??? Smokeless tobacco: Never Used ??? Alcohol use Not on file Medications: Medications 05/04/18 0836 Medication Sig Taking? ibuprofen (ADVIL;MOTRIN) 400 mg Tablet Take 400 mg by mouth every 6 hours as needed for Pain. Yes Allergies: No Known Allergies Review of Systems: Constitutional (weight change, fever) - Denies Neuro (dizziness, seizures, numbness, tingling) - Denies Eyes (vision) - Denies Ears, nose, throat (hearing) - Denies Cardiovascular (CP) - Denies Respiratory (SOB) - Denies GI (abd pain, nausea, emesis, blood in stool) - Denies (hematuria, dysuria, frequency) - Denies Muscoloskeletal (extremity pain, weakness) - c/o B leg weakness and numbness left thigh. Skin (ulcers, rashes) - denies All other ROS negative Physical Exam: Vitals: Most Recent Vitals: 05/04/18 0804 BP: (!) 146/95 Pulse: 79 Resp: 18 PainSc: 0 - No pain General: NAD, appears well Neuro: Alert and oriented, motor sensory grossly intact Lungs: CTA Heart: RRR Abd: Soft, NT, ND, no palpable pulsatile masses Extremity - Crow[place], warm, no ulceration, brisk capillary refill, mild left ankle edema Left lateral calf with focal 15 mm VV. Ankle with spider veins Vascular: R L Carotid 2/2 bruit (n) 2/2 bruit (n) Radial 2/2 2/2 Femoral 2/2 2/2 Popliteal 2/2 2/2 DP 2/2 2/2 PT 2/2 2/2 Assessment/Plan: Healthy 62 yo male with mild venous insuffiencey in left lower leg with edema and mild dermatitis. Lateral calf with focal varicose veins with no pain. Recommend medical management with elevation and compression. Knee high 20-30 mmHg compression written. May wish to obtain L lower extremity valvular incomp study for assess deep valvualr system however treatment wound be the same.Numbness thigh and B leg weakness likely for low back. Thank you for this referral. RTC PRn. documented in this encounter Plan of Treatment Not on filedocumented as of this encounter Visit Diagnoses Diagnosis Left ankle swelling Effusion of ankle and foot joint Venous insufficiency of left lower extre mity documented in this encounter
--- OUTSIDE RECORDS SUMMARY | 2020-09-05 03:30 | XMS_ITS | Continuity of Care Document ---
:1955 Author Organization [facility] Address [address] [place] [address] Care Team Providers Name Role Phone Constantino Primary Care Physician Unavailable Encounter [facility] [id number] Date(s): 03/30/20 - 05/05/20 [facility] [address] [place] [address] Discharge Disposition: Other Attending Physician: Alysia Payton Admitting Physician: Alysia Payton Allergies, Adverse Reactions, Alerts No Known Medication Allergies Substance Reaction Severity Status cat and dog dander Active Medications acetaminophen 325 mg oral tablet 650 [...] tab(s), 0 Refill(s) Start Date: 03/22/20 Status: Orderedinsulin isophane (NPH) 100 units/mL human recombinant subcutaneous suspension 10 unit(s), Subcutaneous, Daily, # 10 mL, 0 Refill(s), Pharmacy: [facility], 10 unit(s) Subcutaneous Daily Start Date: 04/04/20 Status: OrderedpredniSONE 20 mg oral tablet 20 mg = 1 tab(s), Oral, Daily, # 30 tab(s), 0 Refill(s), Pharmacy: [facility], 1 tab(s) Oral Daily Start Date: 04/04/20 Status: Orderedsulfamethoxazole-trimethoprim 800 mg-160 mg oral tablet 1 tab(s), Oral, MWF, # 30 tab(s), 0 Refill(s), Pharmacy: [facility], 1 tab(s) Oral MWF Start Date: [...] 0 Refill(s) Start Date: 03/22/20 Status: Ordered Problem List Condition Effective Dates Status Health Status Informant Autoimmune necrotizing Active myopathy(Confirmed) DVT (deep venous Active thrombosis)(Confirmed) Social History Social History Type Response Smoking Status Former smoker, quit more moni n 30 days ago entered on: 03/22/20 Sex
--- OUTSIDE RECORDS SUMMARY | 2020-09-05 03:30 | XMS_ITS | Encounter Summary ---
:1955 Author Organization [place] [address] Care Team Providers Name Role Phone Virgen Constantino MD Primary Care Provider Reason for Visit Reason Comments Skin Check Consultation (Routine) Status Reason Specialty Diagnoses / Referred By Referred To Procedures Contact Contact Closed Consult, Test & Dermatology Diagnoses Dermatitis, unspecified Dermatitis of lower extremity Theo Constantino Charles Treat Procedures Consult MD Virgen Escoto MD PCP Updated [address] [facility] and/or [address] [phone] Phone: Encounter Details Date Type Department Care Team Description 07/13/2018 Office Visit Dermatology at [facility], Asif Greene MD Neurogenic pruritus [address] [place] [address] [place], [place] [phone] Social History Tobacco Use Types Packs/Day Years Used Date Former Smoker Smokeless Tobacco: Never Used Sex Assigned at Date Recorded Not on file documented as of this encounter Progress Notes David Venegas MD - 07/13/2018 2:00 PM EDTProblem: 1. History of neurogenic pruritus left anterior lower leg 2. History of vitiligo 3. Ill-defined syndrome of lower extremity stiffness and numbness left anterior thigh Jeison is a 62-year-old gentleman who was seen in April at [facility] dermatology for what was diagnosed as neurogenic pruritus of the anterior shins. It was recommended to him to use capsaicin cream but he applied only once but found it too irritating, and instead just use the prescribed betamethasone cream. He is a twice daily for 2weeks and found that now for 2 months he has had no further itching. This is the first time in many years. He has history of neurogenic pruritus began some 15 years ago when he had a possible insect bite on the right leg and is very itchy cyclically so 2 weeks on 2 weeks off and then about 10 years ago switched to the left leg in the same location. The areas involved a lways through the anterior shins. He tried many kdho-vlr-ekfseva product without relief although which cyril gave him instant relief from the itching. He complains also of a ill-defined syndrome of lower extremity stiffness and numbness of the left anterior thigh specifically. He seen a chiropractor his PCP and really does not have an answer to whatis causing the symptoms. Physical examination today reveals no active dermatitis on the anterior shins. He does have some patchy vitiligo with hyperpigmentation on the left anterior early. He does not have any other areas of concern today but is very concerned about what sounds like a neurologic problem pertinent potentiallya lower back issue. Assessment and plan: Neurogenic pruritus lower extremities 1. Currently quiescent 2. Recommend the patient use CeraVe cream once a day to prevent recurrence. 3. Patient reassured Ill-defined syndromes lower extremity stiffness and numbness of left anterior thigh 1. Recommend neurologic consultation to help patient with this as yet undiagnosed problem 2. May be playing a role with anterior early pruritus and certainly with left anterior thigh area ofdecreased sensation (per patient). 3. Will refer to Dr. Gage. CC: Talon Gage MD documented in this encounter Plan of Treatment Not on filedocumented as of this encounter Visit Diagnoses Diagnosis Vitiligo Neurogenic pruritus Other specified pruritic conditions documented in this encounter
[2020-09-05 12:35] LABS: Abs Immature Grans 0.01 10^3/uL (0.0-0.06); Absolute Basophil Count 0.05 10^3/uL (0.0-0.2); Absolute Eosinophil Count 0.22 10^3/uL (0.0-0.7); Absolute Lymphocyte Count 1.01 10^3/uL (1.2-3.4); Absolute Monocyte Count 0.53 10^3/uL (0.1-0.8); Basophils % 1.2; Eosinophils % 5.1; HCT 41.9 % (40.0-50.0); HGB 13.8 g/dL (13.5-17.5); Immature Grans % 0.2; Lymphocytes % 23.4; MCH 29.1 pg (27.0-33.0); MCHC 32.9 % (32.0-36.0); MCV 88.4 fL (80-95); Monocytes % 12.3; Neutrophils % 57.8; Nucleated RBC 0 %; Platelet Count 217 10^3/uL (130-400); RBC 4.74 10^6/uL (4.36-5.78); RDW 13.1 % (11.8-14.1); WBC 4.32 10^3/uL (4.4-10.8)
[2020-09-05 13:01] LABS: ALT 44 U/L (16-63); AST 39 U/L (15-37); Albumin 4.1 g/dL (3.4-5.0); Alkaline Phosphatase 50 U/L (46-116); Anion Gap 9.2 mmol/L (3-11); BUN 20 mg/dL (7-18); Bilirubin, Total 0.6 mg/dL (0.2-1.0); CO2 26.8 mmol/L (21.0-32.0); CREATININE 0.98 mg/dL (0.70-1.30); Calcium 9.7 mg/dL (8.5-10.1); Chloride 104 mmol/L (98-107); Creatine Kinase 800 U/L (39-308); Glucose 113 mg/dL (74-106); Potassium 4.2 mmol/L (3.5-5.1); Sodium 140 mmol/L (136-145); Total Protein 6.8 g/dL (6.4-8.2)
== END 2020-09-05 03:43 ==
PROVIDERS: PCP Family Medicine
DX: M60.88 Other myositis, other site (principal)
CPT/HCPCS: 36415; 80053; 82550; 85025

== ENCOUNTER 2020-10-16 02:45 | Outpatient (CLI) | payer MEDICARE, BC, SELFPAY ==
[2020-10-16 12:43] LABS: Abs Immature Grans 0.01 10^3/uL (0.0-0.06); Absolute Basophil Count 0.07 10^3/uL (0.0-0.2); Absolute Eosinophil Count 0.19 10^3/uL (0.0-0.7); Absolute Lymphocyte Count 1.05 10^3/uL (1.2-3.4); Absolute Monocyte Count 0.52 10^3/uL (0.1-0.8); Absolute Neutrophil Count 1.91 10^3/uL (1.2-6.7); Basophils % 1.9; Eosinophils % 5.1; HCT 42.5 % (40.0-50.0); HGB 14.1 g/dL (13.5-17.5); Immature Grans % 0.3; MCH 29.2 pg (27.0-33.0); MCHC 33.2 % (32.0-36.0); MPV 9.9 fL (8.0-11.0); Monocytes % 13.9; Neutrophils % 50.8; Nucleated RBC 0 %; Platelet Count 197 10^3/uL (130-400); RBC 4.83 10^6/uL (4.36-5.78); RDW 13.2 % (11.8-14.1); RDW-SD 43.4 fL; WBC 3.75 10^3/uL (4.4-10.8)
[2020-10-16 12:56] LABS: ALT 36 U/L (16-63); AST 33 U/L (15-37); Albumin 3.8 g/dL (3.4-5.0); Alkaline Phosphatase 49 U/L (46-116); Anion Gap 9.5 mmol/L (3-11); BUN 18 mg/dL (7-18); Bilirubin, Total 0.4 mg/dL (0.2-1.0); CO2 26.5 mmol/L (21.0-32.0); CREATININE 0.9 mg/dL (0.70-1.30); Calcium 9.2 mg/dL (8.5-10.1); Chloride 105 mmol/L (98-107); Creatine Kinase 689 U/L (39-308); Glucose 132 mg/dL (74-106); Potassium 4.6 mmol/L (3.5-5.1); Sodium 141 mmol/L (136-145); Total Protein 6.6 g/dL (6.4-8.2)
[2020-10-16 13:02] LABS: Hemoglobin A1C 5.9 % (<5.7)
[2020-10-16 13:35] LABS: ESR 18 mm/hr (1-20)
[2020-10-18 10:25] LABS: PSA, Ultrasensitive 17.9 ng/mL (<= 4.5)
== END 2020-10-16 02:46 | disposition home or self-care (01) ==
LOC: LOS 02:46
PROVIDERS: PCP Family Medicine; Visit Provider Family Medicine
DX: M60.88 Other myositis, other site (principal); R73.9 Hyperglycemia, unspecified; N40.0 Benign prostatic hyperplasia without lower urinary tract symptoms
CPT/HCPCS: 36415; 80053; 82550; 84153; 85652; 83036; 85025; 86140

== ENCOUNTER 2021-01-02 01:26 | Outpatient (CLI) | payer MEDICARE, OTHER, SELFPAY ==
--- NOTE | 2021-01-02 07:00 | DI.CT_ITS ---
EXAM: CT CHEST WO CLINICAL HISTORY: reassess nodules in RLL, lingula and LLL,F/U 6..20. TECHNIQUE: Multi planar reconstructions were performed. CONTRAST MATERIAL: None COMPARISON: CT CT CHEST PE CTA from 03/07/2020 CR XR PORTABLE CHEST AP from 03/08/2020 FINDINGS: CHEST: LUNGS: There has been significant improvement of the appearance of both lung love. The previously present extensive bilateral infiltrates have resolved. There presently only mild benign-appearing in creased markings in the right middle lobe. No ominous pulmonary nodules nor pleural effusions. No s ignificant focal findings in trachea and mainstem bronchi. There is no true bronchiectasis. No bull ae. MEDIASTINUM: There is no obvious hilar nor mediastinal adenopathy. Visualized thyroid unremarkable.No obvious axillary adenopathy CARDIAC: Heart size is normal. There is no pericardial effusion.Caliber of the thoracic aorta is wit hin normal limits. VISUALIZED UPPER ABDOMEN:No significant adrenal masses. OSSEOUS: No significant osseous lesions.. IMPRESSION: 1. Significant improvement in both lung love, as described above, when compared to the CT scan of 0 03/07/2020. RADIATION DOSE DELIVERED: 608.8mGy.cm Total DLP DATA REPOSITORY: All CT scans at this facility are submitted to the National Radiology Data Registry (NRDR) Dose Index Registry (DIR) with the [employer] (ACR). RADIATION OPTIMIZATION: All CT scans at this facility use at least one of these dose optimization te chniques: automated exposure control; mA and/or kV adjustment per patient size (includes targeted exa ms where dose is matched to clinical indication); or iterative reconstruction.
== END 2021-01-02 01:46 ==
PROVIDERS: PCP Family Medicine; Visit Provider Family Medicine
DX: R91.1 Solitary pulmonary nodule (principal); J98.4 Other disorders of lung
CPT/HCPCS: 71250

== ENCOUNTER 2021-01-03 03:46 | Outpatient (CLI) | payer MEDICARE, OTHER, SELFPAY ==
[2021-01-03 12:58] LABS: Calculated LDL 170 mg/dL (<100); Cholesterol 242 mg/dL (<200); HDL Cholesterol 48 mg/dL (40-60); Triglyceride 122 mg/dL (<150)
[2021-01-03 13:21] LABS: Creatine Kinase 739 U/L (39-308)
== END 2021-01-03 03:47 | disposition home or self-care (01) ==
LOC: LOS 03:46
PROVIDERS: PCP Family Medicine; Visit Provider Family Medicine
DX: E78.5 Hyperlipidemia, unspecified (principal); M60.88 Other myositis, other site
CPT/HCPCS: 36415; 80061; 82550

== ENCOUNTER 2021-04-03 02:59 | Outpatient (CLI) | payer MEDICARE, OTHER, SELFPAY ==
[2021-04-03 13:03] LABS: Hemoglobin A1C 6.1 % (<5.7)
[2021-04-03 13:25] LABS: Creatine Kinase 796 U/L (39-308)
== END 2021-04-03 03:00 | disposition home or self-care (01) ==
LOC: LOS 02:59
PROVIDERS: PCP Family Medicine; Visit Provider Family Medicine
DX: G72.89 Other specified myopathies; R73.9 Hyperglycemia, unspecified
CPT/HCPCS: 36415; 82550; 83036

== ENCOUNTER 2021-08-15 02:59 | Outpatient (CLI) | payer MEDICARE, OTHER, SELFPAY ==
[2021-08-15 11:52] LABS: Creatine Kinase 741 U/L (39-308)
== END 2021-08-15 03:00 | disposition home or self-care (01) ==
LOC: LOS 02:59
PROVIDERS: PCP Family Medicine; Visit Provider Family Medicine
DX: G72.89 Other specified myopathies (principal)
CPT/HCPCS: 36415; 82550

== ENCOUNTER 2021-10-17 19:31 | Outpatient (REF) | payer MEDICARE, SELFPAY ==
[2021-10-19 16:52] LABS: COVID-19 RT-PCR UVMMC Result Negative (Negative)
== END 2021-10-17 19:32 | disposition home or self-care (01) ==
LOC: LBN 19:31
PROVIDERS: PCP Family Medicine; Visit Provider Nurse Practitioner Family
DX: J18.9 Pneumonia, unspecified organism (principal); Z20.822 Contact with and (suspected) exposure to COVID-19
CPT/HCPCS: U0003

== ENCOUNTER → 2021-11-28 01:40 | Outpatient (CLI) | payer MEDICARE, SELFPAY ==
--- NOTE | 2021-11-28 06:45 | DI.RAD_ITS ---
Exam(s) XR HIP RT COMPLETE AP PELVIS EXAM: XR HIP RT COMPLETE AP PELVIS CLINICAL HISTORY: unexlpained hip pain and weakness,RT,M25.551. TECHNIQUE: 2D digital imaging was performed. COMPARISON: No exams were available for comparison FINDINGS: 3 views No evidence of pelvic fracture. There is moderate-advanced narrowing of the right hip joint space. No osteophytes evident. No degenerative subarticular cysts. No osseous lesions. There is also narr owing of the opposite-left hip joint space but slightly less so than on the right side. Sacroiliac joints appear unremarkable. IMPRESSION: Significant uniform narrowing of the right hip joint space, as described above. DATA REPOSITORY: RADIATION DOSE DELIVERED:
== END ==
PROVIDERS: PCP Family Medicine; Visit Provider Family Medicine
DX: M25.551 Pain in right hip (principal); M16.11 Unilateral primary osteoarthritis, right hip
CPT/HCPCS: 73502

== ENCOUNTER 2022-01-10 02:09 | Outpatient (CLI) | payer MEDICARE, SELFPAY ==
[2022-01-10 12:44] LABS: HCT 48.5 % (40.0-50.0); HGB 16.1 g/dL (13.5-17.5); MCH 30.1 pg (27.0-33.0); MCHC 33.2 % (32.0-36.0); MCV 91 fL (80-95); MPV 9.4 fL (8.0-11.0); Platelet Count 188 10^3/uL (130-400); RBC 5.34 10^6/uL (4.36-5.78); RDW 12.8 % (11.8-14.1); RDW-SD 42.8 fL; WBC 6.73 10^3/uL (4.4-10.8)
[2022-01-10 13:00] LABS: Hemoglobin A1C 6.4 % (<5.7)
[2022-01-10 13:09] LABS: ALT 52 U/L (16-63); AST 29 U/L (15-37); Albumin 3.9 g/dL (3.4-5.0); Alkaline Phosphatase 58 U/L (46-116); BUN 18 mg/dL (7-18); Bilirubin, Total 0.5 mg/dL (0.2-1.0); CREATININE 0.9 mg/dL (0.70-1.30); Calcium 9.5 mg/dL (8.5-10.1); Calculated LDL 138 mg/dL (<100); Chloride 104 mmol/L (98-107); Cholesterol 223 mg/dL (<200); Glucose 105 mg/dL (74-106); HDL Cholesterol 54 mg/dL (40-60); Potassium 4.4 mmol/L (3.5-5.1); Sodium 141 mmol/L (136-145); Triglyceride 156 mg/dL (<150)
[2022-01-10 13:21] LABS: Creatine Kinase 296 U/L (39-308)
[2022-01-10 22:35] LABS: PSA, Screening 26.2 ng/mL (<=4.5)
== END 2022-01-10 02:10 | disposition home or self-care (01) ==
LOC: LOS 02:09
PROVIDERS: PCP Family Medicine; Visit Provider Family Medicine
DX: R53.83 Other fatigue (principal); R10.9 Unspecified abdominal pain; E78.5 Hyperlipidemia, unspecified; R73.9 Hyperglycemia, unspecified; G72.89 Other specified myopathies; R97.20 Elevated prostate specific antigen [PSA]; Z12.5 Encounter for screening for malignant neoplasm of prostate
CPT/HCPCS: 36415; 80053; 80061; 82550; 84153; 85027; 83036

== ENCOUNTER → 2022-01-27 14:10 | Outpatient (BNVA) | payer MEDICARE, OTHER, SELFPAY | PROVIDERS: PCP Family Medicine; Referring Provider Family Medicine; Visit Provider Student in an Organized Health Care Education/Training Program | DX: M25.551 Pain in right hip (principal) | CPT/HCPCS: 99213 ==

== ENCOUNTER → 2022-02-05 03:27 | Outpatient (CLI) | payer MEDICARE, OTHER, SELFPAY ==
--- NOTE | 2022-02-05 07:15 | DI.MRI_ITS ---
Exam(s) MR LOWER JOINT RT WO EXAM: MR LOWER JOINT RT WO CLINICAL HISTORY: PAIN RT HIP, M25.551. TECHNIQUE: Multiplanar multisequence MRI Examination was performed. COMPARISON: None. FINDINGS: BONES/JOINTS: No evidence of fracture. There is hyperintense signal on the T2 weighted images seen in the superior aspect of the right femoral head. There is corresponding hypointense signal on the T1 weighted images. There is also hypointense signal seen in the subchondral bone of the superior aspec t of the right femoral head on the T2 weighted images. There is also edema seen in the superior seferino cular is surface of the right acetabulum. There is narrowing of the superior joint space in the righ t hip. There is a small right hip joint effusion. Labrum: There is hyperintense signal on the T2 weighted images in the superior labrum consistent with a tear. MUSCULOTENDINOUS STRUCTURES: The muscles show normal signal and size. No significant muscular fatty atrophy is present. The tendons are unremarkable. SOFT TISSUES: Unremarkable. OTHER FINDINGS: The prostate gland is enlarged and impinges upon the base of the urinary bladder. The re is a 2.7 x 2.5 cm round well-circumscribed discrete masslike area in the left aspect of the prosta te gland. IMPRESSION: 1. Hyper and hypodense signal seen in the right femoral head. Differential considerations include de generative changes, early avascular necrosis and transverse osteoporosis of the hip. Infection and n eoplasm cannot be entirely excluded. 2. Degenerative changes of the right hip with joint space narrowing and cartilage thinning. 3. Hyperintense signal seen in the superior labrum consistent with a tear. 4. Enlarged prostate gland. 2.7 x 2.5 cm round masslike area in the left aspect of the prostate gland . consult is recommended for further evaluation. DATA REPOSITORY:
== END ==
PROVIDERS: PCP Family Medicine; Visit Provider Student in an Organized Health Care Education/Training Program
DX: M25.551 Pain in right hip (principal); M16.11 Unilateral primary osteoarthritis, right hip; S76.011A Strain of muscle, fascia and tendon of right hip, initial encounter; R93.7 Abnormal findings on diagnostic imaging of other parts of musculoskeletal system; N40.0 Benign prostatic hyperplasia without lower urinary tract symptoms
CPT/HCPCS: 73721

== ENCOUNTER → 2022-02-14 00:06 | Outpatient (CLI) | payer MEDICARE, SELFPAY ==
--- NOTE | 2022-02-14 08:45 | DI.DEXA_ITS ---
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 No compression deformities identified. Left hip: Total T-Score: 0.0. This compares to 0.4 on the prior examination. This is a decrease in the bone mi neral density. Total Z-Score: 0.6. T- and Z-scores: Within normal limits. There is osteopenia in the femoral neck with a T-score of -1.1 . Lumbar Spine: Total T-Score: 1.5. This compares to 1.4 on the prior examination. This is an increase in the bone m ineral density. Total Z-Score: 2.3 T- and Z-scores: Within normal limits. IMPRESSION: No evidence of osteoporosis.
== END ==
PROVIDERS: PCP Family Medicine; Visit Provider Family Medicine
DX: M85.88 Other specified disorders of bone density and structure, other site (principal); Z79.52 Long term (current) use of systemic steroids
CPT/HCPCS: 77080

== ENCOUNTER → 2022-02-17 12:37 | Outpatient (BNVA) | payer MEDICARE, OTHER, SELFPAY | PROVIDERS: PCP Family Medicine; Referring Provider Family Medicine; Visit Provider Urology | DX: N40.0 Benign prostatic hyperplasia without lower urinary tract symptoms (principal); R97.20 Elevated prostate specific antigen [PSA] | CPT/HCPCS: 99215 ==

== ENCOUNTER 2022-02-20 14:01 | Outpatient (CLI) | payer MEDICARE, OTHER, SELFPAY ==
--- NOTE | 2022-02-20 13:45 | DI.RAD_ITS ---
Exam(s) XR PELVIS AP EXAM: XR PELVIS AP CLINICAL HISTORY: PRE OP R STACY. TECHNIQUE: 2D digital imaging was performed. COMPARISON: CR XR HIP RT COMPLETE AP PELVIS from 11/28/2021 FINDINGS: Single view No fractures. However, there is itor-fj-hmuv narrowing of the superior aspect of the right hip joint . No obvious osteophytes. There is only minimal narrowing of the opposite-left hip joint space. IMPRESSION: Advanced osteoarthritic narrowing of the right hip joint. DATA REPOSITORY: RADIATION DOSE DELIVERED:
== END 2022-02-20 14:02 | disposition home or self-care (01) ==
LOC: DIORS 14:02
PROVIDERS: PCP Family Medicine; Referring Provider Family Medicine; Visit Provider Physician Assistant
DX: M87.051 Idiopathic aseptic necrosis of right femur (principal)
CPT/HCPCS: 72170

== ENCOUNTER 2022-03-03 02:19 | Outpatient (CLI) | payer MEDICARE, SELFPAY | END 2022-03-03 02:20 | disposition home or self-care (01) | LOC: LBO 02:19 | PROVIDERS: PCP Family Medicine; Visit Provider Student in an Organized Health Care Education/Training Program ==

== ENCOUNTER 2022-03-03 02:38 | Outpatient (CLI) | payer MEDICARE, OTHER, SELFPAY ==
[2022-03-03 09:44] LABS: HCT 44.2 % (40.0-50.0); HGB 14.8 g/dL (13.5-17.5); MCH 30.1 pg (27.0-33.0); MCHC 33.5 % (32.0-36.0); MCV 90 fL (80-95); MPV 9.2 fL (8.0-11.0); Platelet Count 206 10^3/uL (130-400); RBC 4.92 10^6/uL (4.36-5.78); RDW 12.8 % (11.8-14.1); RDW-SD 42.1 fL; WBC 5.84 10^3/uL (4.4-10.8)
[2022-03-03 10:34] LABS: BUN 15 mg/dL (7-18); CREATININE 0.9 mg/dL (0.70-1.30); Calcium 9.4 mg/dL (8.5-10.1); Chloride 103 mmol/L (98-107); Glucose 147 mg/dL (74-106); Sodium 139 mmol/L (136-145)
[2022-03-03 12:27] LABS: Source Nasal/Nares
[2022-03-03 15:41] LABS: COVID-19 PCR Negative (Negative)
== END 2022-03-03 02:39 | disposition home or self-care (01) ==
PROVIDERS: PCP Family Medicine; Visit Provider Student in an Organized Health Care Education/Training Program
DX: M87.051 Idiopathic aseptic necrosis of right femur (principal); Z01.818 Encounter for other preprocedural examination; Z20.822 Contact with and (suspected) exposure to COVID-19; Z01.812 Encounter for preprocedural laboratory examination; M25.551 Pain in right hip
CPT/HCPCS: 36415; 80048; 85027; 87635; U0005

== ENCOUNTER 2022-03-04 06:02 | Day surgery (SDC) | payer MEDICARE, OTHER, SELFPAY ==
[2022-03-04] VITALS (7 sets, daily range): BP systolic 82–117; BP diastolic 46–83; PULSE 82–89; RESP 12–18; TEMP 36.2–36.4; O2SAT 95–98; BMI 33.3
[2022-03-04] MEDS: Lactated Ringers 1,000 ML 80 ML IV (06:50)
[2022-03-04] MEDS: Acetaminophen 500 MG TAB 1000 MG PO (06:51)
[2022-03-04] MEDS: Celecoxib 200 MG CAP 400 MG PO (06:51)
--- NOTE | 2022-03-04 06:51 | W.ANESPRE ---
General Info Date of Service Date Performed: 03/04/22 Height: 5 ft 11.5 in Weight: 110 kg Body Mass Index (BMI): 33.3 Surgical Procedure: Operation Date: 03/04/22 07:50 Proposed Procedure Side Surgeon p Hip Total Hip Anterior Right Bravo Mcarthur MD Meds Allergies and Home Medications Allergies Allergy/AdvReac Type Severity Reaction Status Date / Time cat dander Allergy Verified 03/04/22 06:11 pollen extracts Allergy Verified 03/04/22 06:11 Home Medication Medication Instructions Recorded finasteride 5 mg tablet 5 mg PO DAILY #30 tabs 04/02/21 rivaroxaban 20 mg tablet (Xarelto) 20 mg PO QPM #30 tabs 05/15/21 tamsulosin 0.4 mg capsule 0.8 mg PO DAILY #180 caps 06/13/21 acetaminophen 500 mg tablet 1,000 mg PO BID PRN 12/04/21 (Acetaminophen Extra Strength) gabapentin 300 mg capsule 300 mg PO BID #60 caps 01/07/22 multivitamin 1 tab PO DAILY 03/03/22 prednisone 5 mg tablet 5 mg PO DAILY 03/03/22 acetaminophen 500 mg tablet 1,000 mg PO Q8H PRN pain #90 tabs 03/04/22 cefadroxil 500 mg capsule 500 mg PO BID #14 caps 03/04/22 celecoxib 200 mg capsule 200 mg PO BID PRN pain #60 caps 03/04/22 oxycodone 5 mg tablet 5 mg PO Q4H #18 tabs 03/04/22 pantoprazole 40 mg tablet,delayed 40 mg PO DAILY #30 tabs 03/04/22 release Current Visit Medications: Current Medications Generic Name Dose Route Start Last Admin Trade Name Freq PRN Reason Stop Dose Admin Acetaminophen 1,000 mg 03/04/22 06:00 Acetaminophen 500 Mg Tab PO 03/04/22 16:00 PREOP KORINA Celecoxib 400 mg 03/04/22 06:00 Celecoxib 200 Mg Cap PO 03/04/22 16:00 PREOP KORINA Tranexamic Acid 1,000 mg/ 60 mls @ 360 mls/hr 03/04/22 06:00 Sodium Chloride IV 03/04/22 16:00 PREOP KORINA Ringer's Solution 1,000 mls @ 80 mls/hr 03/04/22 06:00 IV 04/02/22 23:59 INFUSION KORINA Cefazolin Sodium/Dextrose 2 gm in 50 mls @ 100 mls/hr 03/04/22 06:00 Ancef Duplex IVPB 03/04/22 16:00 PREOP KORINA IV Miscellaneous Supplies 1 each 03/04/22 06:00 Iv Access IV 04/02/22 23:59 DIRECTED KORINA Sodium Chloride 0 ml 03/04/22 06:00 Normal Saline Flush 10 Ml Syr IV 04/02/22 23:59 PRN PRN Sodium Chloride 0 ml 03/04/22 06:00 Normal Saline 10 Ml Vial IJ 04/02/22 23:59 DIRECTED PRN Sterile Water 0 ml 03/04/22 06:00 Water,Injection,Sterile 10 Ml Vial IJ 04/02/22 23:59 DIRECTED PRN PFSH Active Problems Active Problems: Problem Status Onset Code Venous insufficiency of left leg 12/23/16 I87.2 Prediabetes 12/23/16 R73.03 Benign prostatic hyperplasia 12/23/16 N40.0 Myositis ~11/25/18 M60.9 Phlebitis after infusion T80.1XXA, I80.9 Necrotizing myopathy G72.89 Pain of left calf M79.662 Well adult Elevated PSA R97.20 Spinal stenosis of lumbar region with neurogenic claudication ~01/30/20 M48.062 Autoimmune necrotizing myopathy ~01/30/20 G72.49 Multifocal pneumonia J18.9 Chronic steroid use Hypoxia R09.02 Pneumonia J18.9 Acute respiratory failure with hypoxia J96.01 Steroid-induced hyperglycemia R73.9, T38.0X5A Multifocal pneumonia J18.9 Sepsis A41.9 Edema R60.9 Herpes zoster B02.9 DVT (deep venous thrombosis) I82.409 Pain of right hip M25.551 [facility] health care Z00.00 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 Avascular necrosis of bone of right hip M87.051 Surgical History Surgical History History of colonoscopy History of tonsillectomy Status post right inguinal hernia repair Tobacco Smoking/Tobacco Use Status: Former Tobacco Use Passive smoking exposure: Yes Second hand exposure: Yes Alcohol Alcohol Intake: current Alcohol intake frequency: a few times a week Alcohol type: beer Substance Use Substance use: Never Substance use type: does not use Vital Signs and Lab Results Vital Signs Most Recent Vital Signs in EMR: Most Recent Vital Signs Temp Pulse Resp BP Pulse Ox 36.3 C L 85 16 117/83 98 03/04/22 06:14 03/04/22 06:14 03/04/22 06:14 03/04/22 06:14 03/04/22 06:14 Lab Results Blood Type / Crossmatch: No Data to Display Complete Blood Count: White Blood Count 5.84 10^3/uL (4.4-10.8) 03/03/22 09:37 Red Blood Count 4.92 10^6/uL (4.36-5.78) 03/03/22 09:37 Hemoglobin 14.8 g/dL (13.5-17.5) 03/03/22 09:37 Hematocrit 44.2 % (40.0-50.0) 03/03/22 09:37 Platelet Count 206 10^3/uL (130-400) 03/03/22 09:37 Complete Metabolic Panel: Sodium Level 139 mmol/L (136-145) 03/03/22 09:37 Potassium Level 4.0 mmol/L (3.5-5.1) 03/03/22 09:37 Chloride Level 103 mmol/L (98-107) 03/03/22 09:37 Carbon Dioxide Level 28.0 mmol/L (21.0-32.0) 03/03/22 09:37 Blood Urea Nitrogen 15 mg/dL (7-18) 03/03/22 09:37 Creatinine 0.9 mg/dL (0.70-1.30) 03/03/22 09:37 Estimated GFR/1.73 m2 >= 60.00 (mL/min/1.73m2) 03/03/22 09:37 Calcium Level 9.4 mg/dL (8.5-10.1) 03/03/22 09:37 Glucose Level 147 mg/dL (74-106) H 03/03/22 09:37 Liver Function Panel: No Data to Display Coagulation Panel: No Data to Display Cardiac Panel: No Data to Display Arterial Blood Gas: No Data to Display Venous Blood Gas: No Data to Display Pancreas Panel: No Data to Display Thyroid Panel: No Data to Display Infectious Disease: Coronavirus (COVID-19)(PCR) Negative (Negative) 03/03/22 09:52 Coronavirus 2019 Source Nasal/Nares 03/03/22 09:52 Blood Cultures: No Data to Display Toxicology Panel: No Data to Display Imaging and Studies Imaging and Studies Study information below may be from another EMR and interpreted by another provider. Please see original notes in EMR for more complete details. Echocardiogram Summary: Conclusion Normal LV size and wall thickness, Normal systolic function and wall motion. EF is 55-60% The left atrium is mildly dilated MIldly thickened mitral leaflets without mitral regurgitation Trace tricuspid regurgitation Mildly dilated ascending aorta and aortic root Pulmonary Function Summary: IMPRESSION Normal pulmonary function study. Clinical correlation recommended. Anesthesia Assessment and Plan Anesthesia History Personal History: PONV Family History: No Family History of Anesthesia Complications Exercise Tolerance Exercise Tolerance: Metabolic Equivalents>4 Pertinent Negatives Pertinent Negatives: No Symptoms of GERD, No Major Cardiovascular Symptoms or Complaints, No Major Pulmonary Symptoms or Complaints and No History of CVA/TIA Cardiac & Pulmonary Exam Cardiac Exam: Normal S1/S2 Heart Sounds Pulmonary Exam: Clear Bilateral Breath Sounds Implantable Cardiac Device Does patient have a Pacemaker or an ICD?: No Airway Exam Known Difficult Airway: No Mallampati Class: 3 Mouth Opening: Normal (> 3cm) Thyromental Distance: Greater than 3 cm Neck Range of Motion: Full ROM Neck Circumference: Normal Teeth Condition: Normal Dentition (Some missing, stated Need dental work and indicated posterior upper left molars. ) ASA Classification ASA Score: ASA 2 Emergency Case?: No NPO Status NPO Status: NPO Clears >2 hours, Solids >8 hours Anesthesia Plan Resuscitation Status: Full Code Anesthesia Technique: Spinal Anesthesia Airway Planned: Natural Airway Monitors Used: Standard Monitors
--- NOTE | 2022-03-04 07:27 | W.PM.DSUDISC ---
Discharge Plan Disposition Patient Disposition: HOME Condition: Good Discharge Details Reason For Visit: Right Hip Avascular Necrosis Attending Provider: Bravo Mcarthur Primary Care Provider: Talon Constantino Home Meds and New Rx's Prescriptions: New acetaminophen 500 mg tablet 1,000 mg PO Q8H PRN (Reason: pain) Qty: 90 3RF celecoxib 200 mg capsule 200 mg PO BID PRN (Reason: pain) Qty: 60 1RF cefadroxil 500 mg capsule 500 mg PO BID Qty: 14 0RF pantoprazole 40 mg tablet,delayed release (DR/EC) 40 mg PO DAILY Qty: 30 0RF oxycodone 5 mg tablet 5 mg PO Q4H Qty: 18 0RF Continued acetaminophen [Acetaminophen Extra Strength] 500 mg tablet 1,000 mg PO BID PRN finasteride 5 mg tablet 5 mg PO DAILY Qty: 30 11RF gabapentin 300 mg capsule 300 mg PO BID Qty: 60 1RF Xarelto 20 mg tablet 20 mg PO QPM Qty: 30 11RF Rx Instructions: must administer with evening meal; tamsulosin 0.4 mg capsule 0.8 mg PO DAILY Qty: 180 3RF prednisone 5 mg tablet 5 mg PO DAILY multivitamin Tablet 1 tab PO DAILY Discharge Instructions Additional Instructions: Total Hip Discharge Instructions Activity: The most important activity is to walk. You should try to take short walks a few times a day. You have no restrictions on movement or positioning, but do not try to force what you do. You will find some stiffness and weakness with hip flexion (lifting your knee). Do not try to strengthen this too early, continue to practice walking and stairs and this will come. - Outpatient physical therapy can be helpful to help return you to a normal gait and improve your flexibility and strength. This can start around 2 weeks. For some patients, it?s not necessary. Usually this is determined at the time of discharge or at the first post-operative visit. - You should wear the WOOD hose on both legs for 2 weeks. Dressing: Keep the surgical dressing in place for at least one week. After the first week it may be removed and replace with light gauze and tape or nothing. It may get wet after 3 days but avoid soaking the dressing. If it gets wet, just lightly pat dry. It is important to always keep some gauze between skin folds, especially when you are sitting. Spend some time with the wound exposed when you are lying flat as the incision does wrinkle onto itself. Medications: - You should take Tylenol and an anti-inflammatory Celebrex as your primary pain control medications. If the Celebrex is too expensive or not covered, please call the office for another alternative (Advil/Ibuprofen or Naproxen/Aleve). You should also start to limit the Celebrex as soon as pain allows as this can worsen bleeding. - You have been prescribed a stronger pain medication Oxycodone for breakthrough pain, take as needed as prescribed. - You have also been prescribed a stomach acid reduction agent Pantoprozole to help reduce stomach acid and reflux. - You will be taking your home dose of Xarelto for DVT prevention unless instructed otherwise. You may start that tonight - You will also resume your Prednisone starting tomorrow. - If you have constipation you should take Colace or Miralax (both zces-[id number]-aeqryfo). It takes most people 3-4 days to have a bowel movement. Follow-up: 2 weeks If you have any acute concerns or questions, please do not hesitate to contact the office at [phone]. You may contact Dr. Mcarthur with any questions after hours through the hospital at [phone] or on his cell phone at [phone]. Stand Alone Forms: Anesthesia Discharge Inst., Anthony Dooley ([facility]) Referrals: Bravo Mcarthur MD [ [facility] STAFF PHYSICIAN] - Equipment/Supplies: Walker Activity:: Activity as Tolerated Remove Dressings/Wound Care:: Do Not Remove Shower/Bathe:: Cover Diet:: As Tolerated Discharge Orders Discharge Orders: Discharge Order (Routine); Ordered 03/04/22 Ordered By: Bravo Mcarthur Discharge Data Discharge Date/Time-TO BE ENTERED AT DEPARTURE: 03/04/22 12:33
[2022-03-04] MEDS: ceFAZolin 2 GM/50 ML BAG IVPB (07:50)
--- NOTE | 2022-03-04 08:48 | FEMHEA_PTH ---
PATIENT: Jeison Cervantes LOC: [facility] U#:[id number] AGE/SX: 66/M ROOM: RE03/04/[address]: Bravo Mcarthur MD : 1955 BED: DIS: 03/04/2022 SPEC #: [id number] RECD: 03/04/22 12:44 STATUS: CALISTA REQ #: [id number] RADHA: 03/04/22 08:[address]: Bravo Mcarthur DEPT: Surgical Specimen RECD BY: Gissel Pablo ENTERED: 03/04/22 12:45 SP TYPE: Femo Head OTHR DR: Talon Constantino MD [facility] Mat Rodgers Tissues: 1 - FEMORAL HEAD Procedures: GROSS AND MICRO LEVEL 3 Comments: [id number]
--- NOTE | 2022-03-04 08:55 | DI.RAD_ITS ---
Exam(s) XR HIP RT IN OR EXAM: XR HIP RT IN OR CLINICAL HISTORY: AVASCULAR NECROSIS RIGHT HIP. TECHNIQUE: 2D and realtime digital imaging was performed. COMPARISON: CR XR PELVIS AP from 02/20/2022 FINDINGS: Fluoroscopy was provided in the OR for [place]. A hard copy image shows placement right hip prosthe sis. The alignment appears satisfactory. Please see procedure note for details. Fluoro time 28.7 seconds RADIATION DOSE DELIVERED: nany Francois=5.91 mGy
--- NOTE | 2022-03-04 09:59 | W.ANESPOSTOP ---
Postoperative Evaluation Date, Time and Location Date Performed: 03/04/22 Time Performed: 09:59 Patient Location: Day Surgery Unit Vital Signs Most Recent Imported Vital Signs: Most Recent Vital Signs Temp Pulse Resp BP Pulse Ox 36.2 C L 82 16 108/69 96 03/04/22 09:45 03/04/22 09:45 03/04/22 09:45 03/04/22 09:45 03/04/22 09:45 Pain Score Most Recent Pain Score: Most Recent Pain Score Pain Level 0 03/04/22 09:45 Assessment Mental Status: Awake (Alert & Oriented to Patient Baseline) Airway and Respiratory Function: Patent airway with normal (patient baseline) respiratory exam Cardiovascular Function: Hemodynamically Stable Hydration Status: Adequately Hydrated Nausea & Vomiting: No Nausea or Vomiting Pain: Pt. Denies Any Pain Peripheral Nerve Block: Patient did not receive a nerve block Postoperative Comments:: Spinal receding appropriately, RN at bedside and aware to inform anesthesia if any changes in patient progress. Patient questions answered.
--- NOTE | 2022-03-04 10:25 | ROE_ITS ---
Date of service: 03/04/22 Time of Service: 09:00 Operative Note Operative Note DATE OF PROCEDURE: 03/04/22 PRE-OP DIAGNOSIS: Right Hip Avascular Necrosis POST-OP DIAGNOSIS: same (Right Hip Arthritis) PROCEDURE: Right Anterior Total Hip Arthroplasty with Intraoperative Navigation SURGEON: Bravo Mcarthur CHIEF AIRLINE RADIO OPERATOR: Faith Jacques ANESTHESIA TYPE: Spinal Refer to Anesthesia Record ESTIMATED BLOOD LOSS: 100 PATHOLOGY: none sent TOURNIQUET TIME: 0 COMPLICATIONS: None Patient was transported to: PACU Patient's condition: stable Implants: 1. Depuy [place] Acetabular Component, 54mm 2. Depuy Acetabular Liner, 36m44lg 3. Depuy Corail Coxa Vara Collared Femoral Stem, Size 13 4. Depuy Altrx Ceramic Femoral Head, Size 36+5mm Indications: I have seen Jeison in clinic for symptoms of hip arthritis, confirmed with radiographic findings. He has exhausted nonoperative methods and was having significant limitations in daily function and desired better function and less pain. I discussed the technical details of a hip replacement. I explained the risks of the procedure to include, but not limited to, bleeding, infection, pain, stiffness, fracture, damage to nerves and vessels, damage to muscles and tendons, loosening, instability, leg length inequality, need for repeat procedure, blood clot and cardiopulmonary demise. Despite these risks, Jeison elected to proceed. Findings: There was complete chondromalacia of the superior femoral head. There was also some eburnation of bone but not as much cartilage undermining or softening of the bone as expected to see in AVN. Procedure Description: Channing was greeted in the preoperative holding area where the correct side was identified and marked. The consent was reviewed with the patient and signed. The history and physical was updated. All questions were answered. He was taken back to the operating room. A spinal anesthestic was then administered. The feet were wrapped with cast padding and Coban and then placed into the boot liners and then into the boots. Care was taken to protect the skin and make sure the heels were fully down and the boots were stable. The patient was then positioned onto the HANA table. Both legs were held in a neutral position. SCDs were applied. The patient was then slid down onto a peroneal post. Prophylactic antibiotics in the form of Cefazolin were administered. 1g of Tranxemic Acid was given intravenously within 30 minutes of incision. The right leg was then prepped with Chloraprep and draped in a standard fashion. A second prep with Chloraprep was performed prior to placement of a shower-curtain type drape with Iodine impregnated skin protection. A timeout to confirm correct identity, side and site, procedure, allergies, anesthesia, and medical concerns was performed. An obliquely oriented incision was made starting lateral to the ASIS and running distal over the Tensor Fascia Keena (TFL) muscle belly toward the fibular head, approximately 10cm. The skin and soft tissue was dissected sharply, through Antonia?s fascia, and to the fascia of the TFL. With the fascia and superior border of the IT band identified, the fascia was incised with a new knife just above any perforators from the IT band. The TFL muscle belly was bluntly dissected away from the fascia and moved laterally. The fat between TFL and rectus was identified to ensure the dissection was not within the TFL. Blunt dissection created space between abductors and the capsule and retractor was placed over the lateral femoral neck. The fibers of the rectus femoris tendon were identified and these were freed from the anterior capsule. A second cobra retractor was placed around the medial femoral neck. The TFL was further retracted laterally to show the deep fascia. Careful dissection through this layer identified three main crossing vessels of the lateral femoral circumflex. These were cauterized in multiple locations and then cut without any noticeable bleeding. The TFL was further released bluntly from the deep fascia to expose anterior hip capsule and fat The Gerard orthopaedic retractor was then placed beneath the TFL and against sartorius and medial soft tissues to protect and retract the soft tissues. A T-capsulotomy was then performed starting at the superior lateral acetabulum and moving distally to the intertrochanteric ridge. These capsular flaps were tagged with a No. 1 Ethibond and elevated from within. The capsular flaps were released to the shoulder of the lateral neck and to the lesser trochanter to give excellent visualization of the proximal femur. A neck osteotomy was performed using an oscillating saw based on preoperative templates. This cut started in the shoulder and of the lateral neck and exited medially. The saw was at all times directed medially to avoid injury to the greater trochanter. Gross traction was applied to the leg and the osteotomy opened. The femoral head was removed with a corkscrew, making sure to protect the TFL on its exit. Traction was released after head removal. This was measured on the back table to determine the starting reamer size. Portions of the rectus obscuring visualization were minimally elevated off the superior acetabulum. An anterior retractor was placed over the anterior wall between capsule and labrum and attached to the Gripper retraction system. The femur was rotated to 90 degrees and medial capsule was fully released until the lesser trochanter was palpable and visible; the femur was returned to 30 degrees. A posterior retractor was placed similarly between capsule and labrum. This provided excellent visualization. The contents of the cotyloid fossa were removed with electrocautery and the labrum was removed with a knife. Acetabular reaming began with a 50mm reamer. This first reaming was directed anterior to posterior and medial to get down to the true floor. This was inspected and reamed until the true floor was reached. The anterior retractor was then released and entry and exit was provided by traction on the capsular flaps. I then reamed sequentially up to a 54mm reamer where good fit was obtained. The larger reamers were oriented based on anatomical reference of the anterior and lateral higuera to ensure proper abduction and anteversion. Positioning and size was confirmed with the fluoroscopy. A 54mm Depuy [place] acetabular component was selected. The acetabulum was reamed around the periphery with the selected acetabular size to prevent a rim fit. The deep tissues were irrigated. The acetabular component was then impacted in a position of about 40-45 degrees of abduction and 15-20 degrees of anteversion, using the patient?s anatomy as the ultimate landmark. Fluoroscopy was used to confirm this. There was excellent collection systems consultant of the acetabular component and the inserting handle was removed. The acetabular liner, Depuy 88v36ds polyethylene liner, was inserted and lined up with the tines of the acetabular component. There was no soft tissue interposition. The liner was then impacted into position and confirmed to be well-seated. A portion of the arturo-articular cocktail was then injected around the acetabulum into the capsule and periosteum. This cocktail consisted of 123mg of Ropivacaine, 0.25mg of Epinephrine, 0.04mg of Clonidine, and 15mg of Ketorolac, diluted to 50cc. The leg was rotated to 120 degrees. Any remaining medial capsule was released until the lesser trochanter was easily palpable. A retractor was placed medially. The lateral capsule was further released into the shoulder to allow access to the greater trochanter. A Ward retractor was placed over the greater trochanter which allowed the trochanter to flip in front of the capsule for excellent exposure. The leg was brought down into maximal extension and 20 degrees of adduction while ensuring there was no impingement on the acetabulum. Any remnant capsule within the trochanter was released. Piriformis and obturator externis were identified and protected. There was excellent access to the proximal femur. The lateral neck remnant was removed with a rongeur. A blunt canal probe was used to identify the canal and trajectory for later broaching. A box osteotome initiated the broach course. A small curved rasp and a curved curette were used to work laterally. Broaching then began with a size 8 Corail broach. This was inserted manually around the trochanter and into the canal before mallet blows. The broach was seated to a few millimeters below the cut level based on the neck cut and the preoperative template. Sequential broaching was continued with the [employer] pneumatic broaching device until a tight fit was obtained with good rotational control of the femur. A trial Coxa Vara neck was inserted along with a +5 trial head. The leg was brought out of extension and adduction and then reduced with traction and internal rotation. The leg was stable anteriorly in a position of 30 degrees of extension and 90 degrees of external rotation. Fluoroscopy was used to ensure there was no fracture and the stem was seated well. Leg lengths were checked with an AP pelvis and pelvic reference points. Workface navigation system was used to confirm appropriate positioning and leg length and offset. Once content with the desired offset and leg lengths, the leg was brought back into extension, external rotation and adduction. The periosteum and surrounding tissue was injected with remaining portion of the arturo-articular cocktail. The proximal femur was irrigated as well as the deep tissues. The Depuy Corail Coxa Vara collared stem, size 13, was then manually inserted into the proximal femur making sure to control rotation. It was then malleted into position with light blows, giving breaks to allow bone expansion and decrease risk of fracture. The selected Depuy Altrx Ceramic Head, size 36+5mm, was then placed onto the clean and dry trunnion and secured with impaction onto the tapered fit. The leg was brought back out of extension and adduction and reduced with traction and internal rotation. Stability was confirmed with no shuck at 90 degrees of external rotation and 30 degrees of extension. No impingement through range of motion arc. Final x-ray images were obtained with fluoroscopy to confirm adequate positioning and no intraoperative fracture. The deep tissues were thoroughly irrigated with Surgiphor, betadine solution. This was allowed to sit in the wound for 3 minutes before being thoroughly irrigated out with normal saline. The capsule was then reapproximated with the previously placed Ethibond sutures. The TFL fascia was finally closed with a No. 2 Stratafix, barbed suture. Deep tissues were then reapproximated with 0 Vicryl and a running 2-0 Vicryl. The skin was closed with a running 4-0 Monocryl in a subcuticular fashion. This was reinforced with skin glue. A Mepilex silver dressing was applied. At the end of the case, all counts were correct. Channing was transferred to the hospital bed without difficulty and suffering no apparent complication. Channing has a good prognosis. Physical therapy will start today and without restrictions, weight-bearing as tolerated. He will continue his home dose of Xarelto for DVT prophylaxis.
[2022-03-04] MEDS: oxyCODONE 5 MG TAB PO (10:51)
--- NOTE | 2022-03-04 12:04 | IN_ITS ---
PT Notes Visit Reasons: Right Hip Avascular Necrosis Inpatient Physical Therapy Evaluation Date: 03/04/2022 Referring Doctor: Bravo Mcarthur MD PT Orders: PT CONSULT: Status post right STACY Precautions: Fall precaution Patient Profile/Admitting Diagnosis: 66-year-old male with osteoarthritis/AVN of the right hip status post right STACY earlier today PMHX: All Active Problems?(Updated 01/28/22 @ 09:51 by CASEY Hunter) Femoral acetabular impingement (Acute) Preventative health care (Acute) Pain of right hip (Acute) DVT (deep venous thrombosis) (Chronic) Herpes zoster (Acute) Edema (Acute) Sepsis (Acute) Multifocal pneumonia (Acute) Steroid-induced hyperglycemia (Acute) Acute respiratory failure with hypoxia (Acute) Pneumonia (Acute) Multifocal pneumonia (Acute) Chronic steroid use (Acute) Hypoxia (Acute) Autoimmune necrotizing myopathy (Acute ~01/30/20) DHMCSpinal stenosis of lumbar region with neurogenic claudication (Acute ~01/30/20) DHMCElevated PSA (Acute) Well adult (Acute) Pain of left calf (Acute) Necrotizing myopathy (Acute) 05/11/19 DHMCPhlebitis after infusion (Acute) Myositis (Acute ~11/25/18) 11/25/18 DHMCBenign prostatic hyperplasia (Acute 12/23/16) with elevated PSA TRUS biopsies negative X 2 Prediabetes (Acute 12/23/16) Venous insufficiency of left leg (Acute 12/23/16) Medical History? 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 Current Functional Limitations: Was independent with all ADLs, although did have some difficulty donning and doffing socks and shoes. Equipment Owned/DME: 4 wheeled walker Subjective: No complaints of pain offered Objective: General Observation: Pleasant, cooperative no pain behavior noted Mental Status: Alert and oriented x3 Pain: 0/10 Vital Signs: Pulse was regular and approximately 100 bpm following ambulation ROM: Right Upper Extremity: His active assistive right hip and knee motion are nonirritable with right hip rotation at 30 degrees and flexion at 90 degrees Has functional range of motion with remaining articular structures without pain on movement Strength: He has full delusional control throughout and I did not resist his hip musculature, but he had a decreased tone with squatting right gluteal sets Neuro: Intact Bed Mobility/Transfers: [] Independent with assuming the supine to sitting to standing positions without assist Gait: Ambulated greater than 100 feet with a wheeled walker, weightbearing as tolerated on right lower extremity with stable gait. He was able ascend and descend 3 steps safely with proper technique Balance: Is sitting and standing static and dynamic balance was within normal limits, although unilateral standing with less than 3 to 5 seconds on the right Special Tests: Mobility Limitations Standardized Measure [facility] 6 clicks Basic Mobility Inpatient Short Form: Raw Score: 24 standardized Score: 9 4 CMS Score: 0% 4 66 Informed Consent/Education: Patient instructed in purpose of PT consult and plan of care. Assessment: Patient is a 66 year old male referred to physical therapy services with the diagnosis of status post right STACY. Patient presents with clinical signs and symptoms consistent with this diagnosis, as demonstrated by the following impairment level findings: Independent bed mobility and stable gait with a walker. Patient is assessed as a Low 02052 complexity based on the following: History: See comorbidities and social history Examination: See above for functional limitations impairments Presentation: Stable Decision Making: Low complexity based on his clinical findings Goals: All goals have been met with independent bed mobility and stable gait with wheeled walker Plan of Care/Treatment Plan: The session consisted of patient education, bed mobility assessment, and ambulating with a wheeled walker, weightbearing as tolerated the right lower extremity as well as instructing in practicing stair climbing. He was also instructed on home program consisting of frequent quad and gluteal sets as well as ankle pumping. He has a follow-up appointment with Dr. Mcarthur in 2 weeks, and he will discuss further physical therapy at that time if needed. DISCHARGE RECOMMENDATIONS: Home with no services TREATMENT CODE/TIME: 9716 minutes Disclaimer: This note was created using Wannyi voice recognition software. It was reviewed for major content. However, there may be multiple small discrepancies and errors due to the voice recognition aspects of the software.
== END 2022-03-04 12:33 | disposition home or self-care (01) ==
PROVIDERS: PCP Family Medicine; Visit Provider Student in an Organized Health Care Education/Training Program
PROC: (CPT 27130; principal; 2022-03-04 07:30)
DX: M16.11 Unilateral primary osteoarthritis, right hip (principal); M87.851 Other osteonecrosis, right femur; I87.2 Venous insufficiency (chronic) (peripheral); R73.03 Prediabetes
CPT/HCPCS: 20985; 27130; C1776; 88305; 97161; 73501; 88304; J0690; J1100; J1720; J2250; J2405

== ENCOUNTER 2022-03-20 11:49 | Outpatient (CLI) | payer MEDICARE, OTHER, SELFPAY ==
--- NOTE | 2022-03-20 10:45 | DI.RAD_ITS ---
Exam(s) XR HIP RT COMPLETE AP PELVIS EXAM: XR HIP RT COMPLETE AP PELVIS CLINICAL HISTORY: 1ST POST OP R STACY. TECHNIQUE: 2D digital imaging was performed. COMPARISON: CR XR PELVIS AP from 02/20/2022 FINDINGS: Two views Position alignment of the components of the recently placed right hip prosthesis are satisfactory. No fracture or loosening evident. IMPRESSION: DATA REPOSITORY: RADIATION DOSE DELIVERED:
== END 2022-03-20 11:50 | disposition home or self-care (01) ==
LOC: DIORS 11:49
PROVIDERS: PCP Family Medicine; Referring Provider Family Medicine; Visit Provider Student in an Organized Health Care Education/Training Program
DX: Z96.641 Presence of right artificial hip joint (principal); Z47.1 Aftercare following joint replacement surgery
CPT/HCPCS: 73502

== ENCOUNTER → 2022-04-18 08:22 | Outpatient (BNVA) | payer MEDICARE, OTHER, SELFPAY | PROVIDERS: PCP Family Medicine; Referring Provider Family Medicine; Visit Provider Student in an Organized Health Care Education/Training Program | DX: Z47.1 Aftercare following joint replacement surgery (principal); Z96.641 Presence of right artificial hip joint ==

== ENCOUNTER → 2022-05-06 14:47 | Outpatient (BNVA) | payer MEDICARE, OTHER, SELFPAY | PROVIDERS: PCP Family Medicine; Referring Provider Family Medicine; Visit Provider Urology | DX: N40.1 Benign prostatic hyperplasia with lower urinary tract symptoms (principal); R97.20 Elevated prostate specific antigen [PSA] | CPT/HCPCS: 99214 ==

== ENCOUNTER 2022-07-03 09:19 | Outpatient (CLI) | payer MEDICARE, OTHER, SELFPAY ==
[2022-07-03 12:45] LABS: Creatine Kinase 887 U/L (39-308)
== END 2022-07-03 09:20 | disposition home or self-care (01) ==
LOC: LOS 09:20
PROVIDERS: PCP Family Medicine; Visit Provider Family Medicine
DX: G72.89 Other specified myopathies (principal)
CPT/HCPCS: 36415; 82550

== ENCOUNTER → 2022-11-04 10:13 | Outpatient (BNVA) | payer MEDICARE, OTHER, SELFPAY | PROVIDERS: PCP Family Medicine; Referring Provider Family Medicine; Visit Provider Urology | DX: R97.20 Elevated prostate specific antigen [PSA] (principal) | CPT/HCPCS: 99213 ==

== ENCOUNTER 2022-12-12 03:12 | Outpatient (CLI) | payer MEDICARE, SELFPAY ==
[2022-12-12 12:52] LABS: Abs Immature Grans 0.01 10^3/uL (0.0-0.06); Absolute Basophil Count 0.07 10^3/uL (0.0-0.2); Absolute Eosinophil Count 0.12 10^3/uL (0.0-0.7); Absolute Lymphocyte Count 1.35 10^3/uL (1.2-3.4); Absolute Monocyte Count 0.44 10^3/uL (0.1-0.8); Absolute Neutrophil Count 2.68 10^3/uL (1.2-6.7); Basophils % 1.5; Eosinophils % 2.6; HCT 42.1 % (40.0-50.0); HGB 14.5 g/dL (13.5-17.5); Immature Grans % 0.2; Lymphocytes % 28.9; MCH 30.8 pg (27.0-33.0); MCHC 34.4 % (32.0-36.0); MCV 89 fL (80-95); MPV 9.1 fL (8.0-11.0); Monocytes % 9.4; Neutrophils % 57.4; Platelet Count 202 10^3/uL (130-400); RBC 4.71 10^6/uL (4.36-5.78); RDW 13.7 % (11.8-14.1); RDW-SD 44.4 fL; WBC 4.67 10^3/uL (4.4-10.8)
[2022-12-12 13:27] LABS: Creatine Kinase 638 U/L (39-308)
[2022-12-12 13:28] LABS: ALT 51 U/L (16-63); AST 43 U/L (15-37); Alkaline Phosphatase 47 U/L (46-116); Anion Gap 6.4 mmol/L (3-11); BUN 16 mg/dL (7-18); Bilirubin, Total 0.6 mg/dL (0.2-1.0); CO2 28.6 mmol/L (21.0-32.0); Calcium 9.4 mg/dL (8.5-10.1); Chloride 103 mmol/L (98-107); Estimated GFR 82.49 (mL/min/1.73m2); Glucose 119 mg/dL (74-106); Potassium 4.3 mmol/L (3.5-5.1); Sodium 138 mmol/L (136-145); Total Protein 7.2 g/dL (6.4-8.2)
[2022-12-12 23:17] LABS: PSA, Diagnostic 26.3 ng/mL (<=4.5)
== END 2022-12-12 03:13 | disposition home or self-care (01) ==
PROVIDERS: Urology; PCP Family Medicine; Visit Provider Internal Medicine Rheumatology
DX: R97.20 Elevated prostate specific antigen [PSA] (principal); G72.89 Other specified myopathies; Z79.899 Other long term (current) drug therapy
CPT/HCPCS: 36415; 80053; 82550; 84153; 85025

== ENCOUNTER 2023-01-08 08:55 | Outpatient (CLI) | payer MEDICARE, SELFPAY ==
[2023-01-08 12:37] LABS: Hemoglobin A1C 5.8 % (<5.7)
[2023-01-08 13:14] LABS: Calculated LDL 166 mg/dL (<100); Cholesterol 243 mg/dL (<200); HDL Cholesterol 53 mg/dL (40-60); Triglyceride 122 mg/dL (<150)
== END 2023-01-08 08:56 | disposition home or self-care (01) ==
PROVIDERS: PCP Family Medicine; Referring Provider Family Medicine; Visit Provider Family Medicine
DX: E11.51 Type 2 diabetes mellitus with diabetic peripheral angiopathy without gangrene (principal); I70.209 Unspecified atherosclerosis of native arteries of extremities, unspecified extremity; E78.5 Hyperlipidemia, unspecified; R10.32 Left lower quadrant pain
CPT/HCPCS: 36415; 80061; 83036

== ENCOUNTER 2023-01-08 14:40 | Outpatient (CLI) | payer MEDICARE, SELFPAY ==
--- NOTE | 2023-01-08 12:15 | DI.RAD_ITS ---
Exam(s) XR HIP LT COMPLETE AP PELVIS EXAM: XR HIP LT COMPLETE AP PELVIS CLINICAL HISTORY: progressive left hip pain R10.32 LLQ PAIN LEFT HIP PAIN. TECHNIQUE: 2D digital imaging was performed of the left hip. Three views were obtained. AP pelvis and lateral left hip views were obtained. COMPARISON: No exams were available for comparison FINDINGS: BONES: No acute fracture is present. No bony destructive lesion is seen. JOINTS: No dislocation present. A right total hip replacement is incompletely imaged. In the left hi p there is joint space narrowing present. SOFT TISSUE: Normal. IMPRESSION: Mild degenerative changes of the left hip. DATA REPOSITORY: RADIATION DOSE DELIVERED:
--- NOTE | 2023-01-08 12:15 | DI.RAD_ITS ---
Exam(s) XR LUMBAR SPINE COMPLETE EXAM: XR LUMBAR SPINE COMPLETE CLINICAL HISTORY: low back painM54.9 DORSALGIA. TECHNIQUE: 2D digital imaging was performed of the lumbar spine. Five images were obtained. AP, la teral, right oblique, left oblique and L5-S1 spot views were obtained. COMPARISON: CR XR DEXA BONE DENSITY W/WO CHON from 12/08/2019 CR XR DEXA BONE DENSITY W/WO CHON from 02/14/2022 FINDINGS: BONES: No fracture or destructive lesion. Vertebral bodies are unremarkable. Degenerative changes of the facets are seen at L4-5 and L5-S1. Degenerative changes are seen in the lower thoracic and lumbar spine with disc space narrowing and endplate osteophytes present. The findings are most marked at T 11-T12. Part of a right total hip replacement is identified. DISKS: There is disc space narrowing seen at T11-T12 and T10-T11. ALIGNMENT: Lumbar spinal alignment is within normal limits. L5 spondylolysis. No evidence of spondyl olisthesis. SOFT TISSUE: Atherosclerosis is present. Surgical clips are seen in the pelvis. IMPRESSION: Moderate degenerative changes in the lumbar spine. DATA REPOSITORY: RADIATION DOSE DELIVERED:
== END 2023-01-08 15:00 ==
LOC: DI 14:40
PROVIDERS: PCP Family Medicine; Visit Provider Family Medicine
DX: M54.9 Dorsalgia, unspecified (principal); R10.32 Left lower quadrant pain
CPT/HCPCS: 36415; 80061; 72110; 73502; 83036

== ENCOUNTER 2023-03-05 02:12 | Outpatient (CLI) | payer MEDICARE, SELFPAY ==
[2023-03-05 12:16] LABS: Abs Immature Grans 0.01 10^3/uL (0.0-0.06); Absolute Basophil Count 0.05 10^3/uL (0.0-0.2); Absolute Eosinophil Count 0.18 10^3/uL (0.0-0.7); Absolute Lymphocyte Count 1.29 10^3/uL (1.2-3.4); Absolute Monocyte Count 0.64 10^3/uL (0.1-0.8); Absolute Neutrophil Count 2.67 10^3/uL (1.2-6.7); Eosinophils % 3.7; HCT 43.4 % (40.0-50.0); Immature Grans % 0.2; Lymphocytes % 26.7; MCH 31.4 pg (27.0-33.0); MCHC 34.6 % (32.0-36.0); MCV 91 fL (80-95); Monocytes % 13.2; Neutrophils % 55.2; Platelet Count 188 10^3/uL (130-400); RBC 4.78 10^6/uL (4.36-5.78); RDW 13.7 % (11.8-14.1); RDW-SD 45.4 fL; WBC 4.84 10^3/uL (4.4-10.8)
[2023-03-05 12:32] LABS: ALT 45 U/L (16-63); AST 39 U/L (15-37); Albumin 3.9 g/dL (3.4-5.0); Alkaline Phosphatase 45 U/L (46-116); BUN 20 mg/dL (7-18); Bilirubin, Total 0.6 mg/dL (0.2-1.0); CREATININE 0.8 mg/dL (0.70-1.30); Calcium 9.2 mg/dL (8.5-10.1); Chloride 107 mmol/L (98-107); Glucose 128 mg/dL (74-106); Potassium 4.3 mmol/L (3.5-5.1); Sodium 142 mmol/L (136-145); Total Protein 7.1 g/dL (6.4-8.2)
== END 2023-03-05 02:13 | disposition home or self-care (01) ==
LOC: LOS 02:14
PROVIDERS: PCP Family Medicine; Visit Provider Internal Medicine Rheumatology
DX: G72.49 Other inflammatory and immune myopathies, not elsewhere classified (principal)
CPT/HCPCS: 36415; 80053; 85025

== ENCOUNTER 2023-03-12 10:08 | Outpatient (CLI) | payer MEDICARE, SELFPAY ==
--- NOTE | 2023-03-12 09:45 | DI.RAD_ITS ---
Exam(s) XR HIP RT AP LAT ONLY EXAM: XR HIP RT AP LAT ONLY INDICATION: ANNUAL F/U R STACY. COMPARISON: CR XR HIP RT COMPLETE AP PELVIS from 03/20/2022 CR XR HIP LT COMPLETE AP PELVIS from 01/08/2023 TECHNIQUE: 2D digital imaging was performed. Two views. FINDINGS: There has been no change in the alignment of the right hip prosthesis. There are no suspicious bony lucencies. DATA REPOSITORY: RADIATION DOSE DELIVERED:
== END 2023-03-12 10:09 | disposition home or self-care (01) ==
LOC: DIORS 10:08
PROVIDERS: PCP Family Medicine; Referring Provider Family Medicine; Visit Provider Student in an Organized Health Care Education/Training Program
DX: Z47.1 Aftercare following joint replacement surgery (principal); M16.12 Unilateral primary osteoarthritis, left hip; Z96.641 Presence of right artificial hip joint
CPT/HCPCS: 99213; 73502

== ENCOUNTER → 2023-05-05 14:15 | Outpatient (BNVA) | payer MEDICARE, SELFPAY | PROVIDERS: PCP Family Medicine; Visit Provider Urology | DX: R97.20 Elevated prostate specific antigen [PSA] (principal) | CPT/HCPCS: 36415; 99213 ==

== ENCOUNTER 2023-05-05 14:59 | Outpatient (REF) | payer MEDICARE, SELFPAY ==
[2023-05-06 21:54] LABS: PSA, Diagnostic 30.4 ng/mL (<=4.5)
== END 2023-05-05 15:00 | disposition home or self-care (01) ==
LOC: LBN 14:59
PROVIDERS: PCP Family Medicine; Visit Provider Urology
DX: R97.20 Elevated prostate specific antigen [PSA] (principal)
CPT/HCPCS: 84153

== ENCOUNTER → 2023-05-19 09:14 | Outpatient (BNVA) | payer MEDICARE, SELFPAY | PROVIDERS: PCP Family Medicine; Referring Provider Family Medicine; Visit Provider Urology | DX: R97.20 Elevated prostate specific antigen [PSA] (principal); N40.0 Benign prostatic hyperplasia without lower urinary tract symptoms | CPT/HCPCS: 99443 ==

== ENCOUNTER 2023-07-09 09:23 | Outpatient (CLI) | payer MEDICARE, SELFPAY ==
[2023-07-09 12:26] LABS: Abs Immature Grans 0.02 10^3/uL (0.0-0.06); Absolute Basophil Count 0.07 10^3/uL (0.0-0.2); Absolute Eosinophil Count 0.16 10^3/uL (0.0-0.7); Absolute Lymphocyte Count 1.11 10^3/uL (1.2-3.4); Absolute Monocyte Count 0.93 10^3/uL (0.1-0.8); Absolute Neutrophil Count 6.48 10^3/uL (1.2-6.7); Basophils % 0.8; Eosinophils % 1.8; HGB 14.8 g/dL (13.5-17.5); Immature Grans % 0.2; Lymphocytes % 12.7; MCH 30.8 pg (27.0-33.0); MCHC 33.6 % (32.0-36.0); MCV 92 fL (80-95); MPV 9.5 fL (8.0-11.0); Monocytes % 10.6; Neutrophils % 73.9; Platelet Count 274 10^3/uL (130-400); RBC 4.81 10^6/uL (4.36-5.78); RDW 13.7 % (11.8-14.1); RDW-SD 45.9 fL; WBC 8.77 10^3/uL (4.4-10.8)
[2023-07-09 12:52] LABS: ALT 35 U/L (16-63); AST 23 U/L (15-37); Albumin 3.8 g/dL (3.4-5.0); Alkaline Phosphatase 56 U/L (46-116); Anion Gap 8.4 mmol/L (3-11); BUN 13 mg/dL (7-18); Bilirubin, Total 0.7 mg/dL (0.2-1.0); CO2 26.6 mmol/L (21.0-32.0); Calcium 9.6 mg/dL (8.5-10.1); Chloride 104 mmol/L (98-107); Estimated GFR 82.49 (mL/min/1.73m2); Glucose 127 mg/dL (74-106); Lipase 43 U/L (16-77); Potassium 4.1 mmol/L (3.5-5.1); Sodium 139 mmol/L (136-145); Total Protein 7.3 g/dL (6.4-8.2)
== END 2023-07-09 09:24 | disposition home or self-care (01) ==
LOC: LOS 09:24
PROVIDERS: PCP Family Medicine; Referring Provider Family Medicine; Visit Provider Family Medicine
DX: R10.9 Unspecified abdominal pain (principal); D64.9 Anemia, unspecified
CPT/HCPCS: 36415; 80053; 83690; 85025

== ENCOUNTER → 2023-07-20 00:41 | Outpatient (CLI) | payer MEDICARE, SELFPAY ==
[2023-07-20] MEDS: Barium Sulfate 2% W/V-Creamy Vanilla Smoothie 450 ML BTL 900 ML PO (12:58)
[2023-07-20] MEDS: Omnipaque 350 MG/ML 100 ML BTL IJ (15:10)
[2023-07-20] MEDS: Normal Saline - Diluent 50 ML VIAL IJ (15:10)
--- NOTE | 2023-07-20 15:25 | DI.CT_ITS ---
Exam(s) CT ABDOMEN PELVIS W EXAM: CT ABDOMEN PELVIS W CLINICAL HISTORY: ABD pain/ABNL weight loss,R63.4,4.R10.9 TECHNIQUE: Imaging Protocol: Axial computed tomography images with coronal and sagittal reformatted images were created and reviewed CONTRAST MATERIAL: Intravenous: Omnipaque 350 Contrast volume:100 mL Oral: Yes COMPARISON: CT CT CHEST PE CTA from 03/07/2020 FINDINGS: ABDOMEN: Lung Bases: Coronary artery calcifications are present. There is a small hiatal hernia. Liver: Normal density. No measurable mass. Portal, Superior Mesenteric, and Splenic Veins: Unremarkable. Gallbladder and Biliary Tract: No radiodense calculus or dilation. Pancreas: Normal density, no abnormal calcifications or inflammatory process. Spleen: Normal. Adrenals: No masses seen. Kidneys: Normal size, contour and axis. Left nephrolithiasis. No evidence of obstructive uropathy. No masses seen. Abdominal Aorta: Abdominal portion non-dilated. Atherosclerosis. Bowel: There is a large amount of stool in the colon consistent with constipation. Appendix is unrem arkable. There is no bowel wall thickening or obstruction present. Peritoneal Cavity: No ascites, collection or mesenteric inflammatory response. No free air. Lymph Nodes: Non-specific mildly enlarged lymph nodes in the mesentery. Bones: Within normal limits for the patient's age. The patient has a right total hip replacement. Soft Tissues: Postsurgical changes of a prior right hernia repair. PELVIS: Bladder: There is diffuse thickening of the wall of the urinary bladder. Reproductive Organs: The prostate gland is markedly enlarged and impinges in the base of the urinary bladder. Lymph Nodes: Within normal limits. Bones: Within normal limits for the patient's age. IMPRESSION: 1. Marked enlargement of the prostate gland with impingement into the base of the urinary bladder. 2. Diffuse thickening of the wall of the urinary bladder likely secondary to chronic bladder outlet o bstruction. Cystitis or underdistention cannot be excluded. 3. Constipation. RADIATION DOSE DELIVERED: Total DLP DATA REPOSITORY: All CT scans at this facility are submitted to the National Radiology Data Registry (NRDR) Dose Index Registry (DIR) with the [employer] (A[employer]). RADIATION OPTIMIZATION: All CT scans at this facility use at least one of these dose optimization te chniques: automated exposure control; mA and/or kV adjustment per patient size (includes targeted exa ms where dose is matched to clinical indication); or iterative reconstruction.
== END ==
PROVIDERS: PCP Family Medicine; Visit Provider Family Medicine
DX: R10.9 Unspecified abdominal pain (principal); R63.4 Abnormal weight loss; K59.00 Constipation, unspecified; N40.0 Benign prostatic hyperplasia without lower urinary tract symptoms
CPT/HCPCS: 74177; J3490

== ENCOUNTER 2023-08-21 03:27 | Outpatient (CLI) | payer MEDICARE, SELFPAY ==
[2023-08-21 19:59] LABS: PSA, Diagnostic 22.7 ng/mL (<=4.5)
== END 2023-08-21 03:28 | disposition home or self-care (01) ==
LOC: LBO 03:27
PROVIDERS: PCP Family Medicine; Visit Provider Urology
DX: R97.20 Elevated prostate specific antigen [PSA] (principal)
CPT/HCPCS: 36415; 84153

== ENCOUNTER 2023-08-31 03:25 | Outpatient (CLI) | payer MEDICARE, SELFPAY ==
[2023-08-31 13:24] LABS: Absolute Basophil Count 0.06 10^3/uL (0.0-0.2); Absolute Eosinophil Count 0.19 10^3/uL (0.0-0.7); Absolute Lymphocyte Count 1.57 10^3/uL (1.2-3.4); Absolute Monocyte Count 0.76 10^3/uL (0.1-0.8); Absolute Neutrophil Count 3.01 10^3/uL (1.2-6.7); Basophils % 1.1; Eosinophils % 3.4; HCT 42.6 % (40.0-50.0); HGB 14.5 g/dL (13.5-17.5); Lymphocytes % 28.1; MCH 30.9 pg (27.0-33.0); MCV 91 fL (80-95); MPV 9.1 fL (8.0-11.0); Monocytes % 13.6; Neutrophils % 53.8; Platelet Count 200 10^3/uL (130-400); RDW 13.9 % (11.8-14.1); RDW-SD 46.1 fL; WBC 5.59 10^3/uL (4.4-10.8)
[2023-08-31 14:16] LABS: ALT 40 U/L (16-63); AST 35 U/L (15-37); Albumin 3.9 g/dL (3.4-5.0); Alkaline Phosphatase 58 U/L (46-116); Anion Gap 6.5 mmol/L (3-11); BUN 20 mg/dL (7-18); Bilirubin, Total 0.4 mg/dL (0.2-1.0); CO2 29.5 mmol/L (21.0-32.0); Calcium 9.6 mg/dL (8.5-10.1); Chloride 105 mmol/L (98-107); Creatine Kinase 385 U/L (39-308); Estimated GFR 82.49 (mL/min/1.73m2); Glucose 104 mg/dL (74-106); Potassium 4.3 mmol/L (3.5-5.1); Sodium 141 mmol/L (136-145); Total Protein 7.4 g/dL (6.4-8.2)
== END 2023-08-31 03:26 | disposition home or self-care (01) ==
PROVIDERS: PCP Family Medicine; Visit Provider Internal Medicine Rheumatology
DX: G72.49 Other inflammatory and immune myopathies, not elsewhere classified (principal); Z79.899 Other long term (current) drug therapy
CPT/HCPCS: 36415; 80053; 82550; 85025

== ENCOUNTER 2023-10-26 04:28 | Outpatient (CLI) | payer MEDICARE, SELFPAY ==
[2023-10-26 12:19] LABS: Abs Immature Grans 0.01 10^3/uL (0.0-0.06); Absolute Basophil Count 0.07 10^3/uL (0.0-0.2); Absolute Eosinophil Count 0.21 10^3/uL (0.0-0.7); Absolute Lymphocyte Count 1.17 10^3/uL (1.2-3.4); Absolute Monocyte Count 0.53 10^3/uL (0.1-0.8); Absolute Neutrophil Count 2.63 10^3/uL (1.2-6.7); Basophils % 1.5; Eosinophils % 4.5; HCT 42.7 % (40.0-50.0); HGB 14.4 g/dL (13.5-17.5); Immature Grans % 0.2; Lymphocytes % 25.3; MCH 31.1 pg (27.0-33.0); MCHC 33.7 % (32.0-36.0); MCV 92 fL (80-95); MPV 9.6 fL (8.0-11.0); Monocytes % 11.5; Platelet Count 211 10^3/uL (130-400); RBC 4.63 10^6/uL (4.36-5.78); RDW 14.6 % (11.8-14.1); RDW-SD 48.7 fL; WBC 4.62 10^3/uL (4.4-10.8)
[2023-10-26 12:53] LABS: ALT 45 U/L (16-63); AST 30 U/L (15-37); Albumin 3.7 g/dL (3.4-5.0); Alkaline Phosphatase 49 U/L (46-116); Anion Gap 8.9 mmol/L (3-11); BUN 17 mg/dL (7-18); Bilirubin, Total 0.4 mg/dL (0.2-1.0); CO2 26.1 mmol/L (21.0-32.0); CREATININE 0.9 mg/dL (0.70-1.30); Calcium 9.2 mg/dL (8.5-10.1); Chloride 108 mmol/L (98-107); Estimated GFR 93.03 (mL/min/1.73m2); Glucose 123 mg/dL (74-106); Potassium 4.2 mmol/L (3.5-5.1); Sodium 143 mmol/L (136-145)
[2023-10-26 18:19] LABS: PSA, Diagnostic 22.9 ng/mL (<=4.5)
== END 2023-10-26 04:29 | disposition home or self-care (01) ==
LOC: LOS 04:28
PROVIDERS: Urology; PCP Family Medicine; Visit Provider Internal Medicine Rheumatology
DX: R97.20 Elevated prostate specific antigen [PSA] (principal); G72.49 Other inflammatory and immune myopathies, not elsewhere classified
CPT/HCPCS: 80053; 84153; 85025

== ENCOUNTER → 2023-11-13 14:16 | Outpatient (BNVA) | payer MEDICARE, SELFPAY | PROVIDERS: PCP Family Medicine; Visit Provider Urology | DX: N40.0 Benign prostatic hyperplasia without lower urinary tract symptoms (principal); R97.20 Elevated prostate specific antigen [PSA] | CPT/HCPCS: 99214 ==

== ENCOUNTER 2024-01-29 01:41 | Outpatient (CLI) | payer MEDICARE, SELFPAY ==
[2024-01-29 12:16] LABS: Abs Immature Grans 0.01 10^3/uL (0.0-0.06); Absolute Basophil Count 0.05 10^3/uL (0.0-0.2); Absolute Eosinophil Count 0.16 10^3/uL (0.0-0.7); Absolute Lymphocyte Count 1.23 10^3/uL (1.2-3.4); Absolute Monocyte Count 0.46 10^3/uL (0.1-0.8); Absolute Neutrophil Count 1.98 10^3/uL (1.2-6.7); Basophils % 1.3 %; Eosinophils % 4.1 %; HCT 44.9 % (40.0-50.0); HGB 15.1 g/dL (13.5-17.5); Immature Grans % 0.3 %; Lymphocytes % 31.6 %; MCH 31.3 pg (27.0-33.0); MCHC 33.6 % (32.0-36.0); MCV 93 fL (80-95); MPV 9.5 fL (8.0-11.0); Monocytes % 11.8 %; Neutrophils % 50.9 %; Platelet Count 199 10^3/uL (130-400); RBC 4.82 10^6/uL (4.36-5.78); RDW 13.6 % (11.8-14.1); WBC 3.89 10^3/uL (4.4-10.8)
[2024-01-29 12:45] LABS: ALT 48 U/L (16-63); AST 37 U/L (15-37); Alkaline Phosphatase 49 U/L (46-116); Anion Gap 7.2 mmol/L (3-11); BUN 20 mg/dL (7-18); Bilirubin, Total 1.2 mg/dL (0.2-1.0); CO2 28.8 mmol/L (21.0-32.0); CREATININE 0.9 mg/dL (0.70-1.30); Calcium 9.6 mg/dL (8.5-10.1); Chloride 107 mmol/L (98-107); Estimated GFR 93.03 (mL/min/1.73m2); Glucose 113 mg/dL (74-106); Potassium 4.3 mmol/L (3.5-5.1); Sodium 143 mmol/L (136-145); Total Protein 7.2 g/dL (6.4-8.2)
[2024-01-29 13:14] LABS: Creatine Kinase 443 U/L (39-308)
[2024-01-29 19:04] LABS: PSA, Diagnostic 26.9 ng/mL (<=4.5)
== END 2024-01-29 01:42 | disposition home or self-care (01) ==
LOC: LOS 01:42
PROVIDERS: Urology; PCP Family Medicine; Visit Provider Internal Medicine Rheumatology
DX: G72.49 Other inflammatory and immune myopathies, not elsewhere classified (principal); R97.20 Elevated prostate specific antigen [PSA]
CPT/HCPCS: 36415; 80053; 82550; 84153; 85025

== ENCOUNTER 2024-02-09 16:23 | Outpatient (REF) | payer MEDICARE, SELFPAY ==
[2024-02-09 21:16] LABS: Abs Immature Grans 0.02 10^3/uL (0.0-0.06); Absolute Basophil Count 0.08 10^3/uL (0.0-0.2); Absolute Lymphocyte Count 1.29 10^3/uL (1.2-3.4); Absolute Monocyte Count 0.81 10^3/uL (0.1-0.8); Absolute Neutrophil Count 3.64 10^3/uL (1.2-6.7); Basophils % 1.3 %; Eosinophils % 4.9 %; HCT 39.7 % (40.0-50.0); HGB 14.2 g/dL (13.5-17.5); Immature Grans % 0.3 %; MCH 31.8 pg (27.0-33.0); MCHC 35.8 % (32.0-36.0); MCV 89 fL (80-95); Monocytes % 13.2 %; Neutrophils % 59.3 %; RBC 4.46 10^6/uL (4.36-5.78); RDW 13.6 % (11.8-14.1); RDW-SD 43.6 fL; WBC 6.14 10^3/uL (4.4-10.8)
[2024-02-11 10:26] LABS: Lyme Ab w Rflx to Lyme Confirm Negative (Negative)
[2024-02-13 20:15] LABS: Anaplasma phagocytophilum Negative (Negative); B. miyamotoi PCR Negative (Negative); Babesia divergens/MO-1 Negative (Negative); Babesia duncani Negative (Negative); Babesia microti Negative (Negative); Ehrlichia chaffeensis Negative (Negative); Ehrlichia ewingii/canis Negative (Negative); Ehrlichia muris eauclairensis Negative (Negative)
== END 2024-02-09 16:24 | disposition home or self-care (01) ==
LOC: LBN 16:23
PROVIDERS: PCP Family Medicine; Visit Provider Physician Assistant
DX: R53.81 Other malaise (principal)
CPT/HCPCS: 87798; 85025; 86618

== ENCOUNTER → 2024-02-10 09:27 | Outpatient (CLI) | payer MEDICARE, SELFPAY ==
--- NOTE | 2024-02-10 09:47 | DI.RAD_ITS ---
Exam(s) XR CHEST 2V PA LATERAL EXAM: XR CHEST 2V PA LATERAL CLINICAL HISTORY: cough, r/o pneumonia, R05.9 TECHNIQUE: 2D digital imaging was performed. Two views. COMPARISON: CT CT CHEST WO from 01/02/2021 FINDINGS: HEART: Normal size. Aorta: Not dilated. PULMONARY VASCULATURE: Normal. LUNGS: Clear. PLEURAL SPACE: No pleural effusion or pneumothorax. BONE:Unremarkable for age. Soft tissues: Unremarkable. IMPRESSION: No acute abnormality. DATA REPOSITORY: RADIATION DOSE DELIVERED:
== END ==
PROVIDERS: PCP Family Medicine; Visit Provider Physician Assistant
DX: R05.9 Cough, unspecified (principal)
CPT/HCPCS: 71046

== ENCOUNTER 2024-03-29 14:50 | Outpatient (REF) | payer MEDICARE, SELFPAY ==
[2024-03-29 21:21] LABS: Abs Immature Grans 0.01 10^3/uL (0.0-0.06); Absolute Basophil Count 0.05 10^3/uL (0.0-0.2); Absolute Eosinophil Count 0.34 10^3/uL (0.0-0.7); Absolute Lymphocyte Count 1.13 10^3/uL (1.2-3.4); Absolute Monocyte Count 0.74 10^3/uL (0.1-0.8); Absolute Neutrophil Count 3.64 10^3/uL (1.2-6.7); Basophils % 0.8 %; Eosinophils % 5.8 %; HCT 42.4 % (40.0-50.0); HGB 14.9 g/dL (13.5-17.5); Immature Grans % 0.2 %; Lymphocytes % 19.1 %; MCH 31.6 pg (27.0-33.0); MCHC 35.1 % (32.0-36.0); MCV 90 fL (80-95); Monocytes % 12.5 %; Neutrophils % 61.6 %; RBC 4.72 10^6/uL (4.36-5.78); RDW 13.5 % (11.8-14.1); WBC 5.91 10^3/uL (4.4-10.8)
[2024-03-29 21:39] LABS: Anion Gap 8.4 mmol/L (3-11); BUN 22 mg/dL (7-18); CO2 27.6 mmol/L (21.0-32.0); CREATININE 0.9 mg/dL (0.70-1.30); Calcium 9.5 mg/dL (8.5-10.1); Chloride 107 mmol/L (98-107); Estimated GFR 93.03 (mL/min/1.73m2); Glucose 131 mg/dL (74-106); NT-proBNP 27 pg/mL (<300); Potassium 4.1 mmol/L (3.5-5.1); Sodium 143 mmol/L (136-145)
[2024-03-29 22:09] LABS: Platelet Count 147 10^3/uL (130-400)
== END 2024-03-29 14:51 | disposition home or self-care (01) ==
LOC: LBN 14:50
PROVIDERS: PCP Family Medicine; Visit Provider Nurse Practitioner Family
DX: R06.02 Shortness of breath (principal); R05.9 Cough, unspecified
CPT/HCPCS: 80048; 83880; 85025

== ENCOUNTER → 2024-03-30 01:52 | Outpatient (CLI) | payer MEDICARE, SELFPAY ==
--- NOTE | 2024-03-30 07:00 | DI.CT_ITS ---
Exam(s) CT CHEST WO EXAM: CT CHEST WO CLINICAL HISTORY: evaluate pathology,cough, r05.9. TECHNIQUE: Multi planar reconstructions were performed. CONTRAST MATERIAL: None COMPARISON: CR XR PORTABLE CHEST AP from 03/08/[address] CHEST WO from 01/02/[address] ABDOMEN PELVIS W from 07/20/2023 FINDINGS: CHEST: LUNGS: There are no confluent infiltrates nor pleural effusions.. Mild scarring is noted in the late ral basal segment of the right lower lobe. There are no findings in trachea and mainstem bronchi. T here is no bronchiectasis. No evidence of recurrence of the infiltrates which were evident in February 13. No ominous pulmonary nodules. MEDIASTINUM: There is no obvious hilar nor mediastinal adenopathy. Visualized thyroid unremarkable.No obvious axillary adenopathy CARDIAC: Heart size is normal. There is no pericardial effusion.Caliber of the thoracic aorta is wit hin normal limits. VISUALIZED UPPER ABDOMEN:No adrenal masses. No splenomegaly. OSSEOUS: No significant osseous lesions.No fractures.. IMPRESSION: 1. No significant infiltrates no pleural effusions. No intrathoracic adenopathy. 2. No evidence of recurrence of the prominent infiltrates which were evident of both lung love February 2020. RADIATION DOSE DELIVERED: Total DLP DATA REPOSITORY: All CT scans at this facility are submitted to the National Radiology Data Registry (NRDR) Dose Index Registry (DIR) with the [employer] (ACR). RADIATION OPTIMIZATION: All CT scans at this facility use at least one of these dose optimization te chniques: automated exposure control; mA and/or kV adjustment per patient size (includes targeted exa ms where dose is matched to clinical indication); or iterative reconstruction.
== END ==
PROVIDERS: PCP Family Medicine; Visit Provider Nurse Practitioner Family
DX: R05.8 Other specified cough (principal); J98.4 Other disorders of lung
CPT/HCPCS: 71250

== ENCOUNTER → 2024-04-14 13:30 | Outpatient (CLI) | payer MEDICARE, SELFPAY ==
--- NOTE | 2024-04-14 09:45 | DI.US_ITS ---
Exam(s) US LOWER EXTREMITY VENOUS RT EXAM: US LOWER EXTREMITY VENOUS RT CLINICAL HISTORY: Swelling, M79.89, Rule out DVT. TECHNIQUE: Lower extremity venous ultrasound performed using grayscale, color-flow, and spectral Do ppler analysis. COMPARISON: No exams were available for comparison FINDINGS: The common femoral, femoral and popliteal veins demonstrate normal compressibility, augmentation, and color Doppler. The posterior tibial veins are patent. There is thrombus visible in the saphenous ve in beginning 6 cm from the saphenofemoral junction extending to the mid calf region. No hematoma or Flores's cyst is seen. IMPRESSION: Saphenous vein thrombosis. DATA REPOSITORY:
== END ==
PROVIDERS: PCP Family Medicine; Visit Provider Physician Assistant
DX: M79.89 Other specified soft tissue disorders (principal); I82.811 Embolism and thrombosis of superficial veins of right lower extremity
CPT/HCPCS: 93971

== ENCOUNTER 2024-05-11 10:55 | Outpatient (CLI) | payer MEDICARE, SELFPAY ==
[2024-05-11 12:09] LABS: Abs Immature Grans 0.04 10^3/uL (0.0-0.06); Absolute Basophil Count 0.06 10^3/uL (0.0-0.2); Absolute Eosinophil Count 0.16 10^3/uL (0.0-0.7); Absolute Lymphocyte Count 1.32 10^3/uL (1.2-3.4); Absolute Monocyte Count 0.48 10^3/uL (0.1-0.8); Absolute Neutrophil Count 2.96 10^3/uL (1.2-6.7); Basophils % 1.2 %; Eosinophils % 3.2 %; HGB 15.5 g/dL (13.5-17.5); Immature Grans % 0.8 %; Lymphocytes % 26.3 %; MCH 31.4 pg (27.0-33.0); MCHC 34.4 % (32.0-36.0); MCV 91 fL (80-95); MPV 9.7 fL (8.0-11.0); Monocytes % 9.6 %; Neutrophils % 58.9 %; Platelet Count 218 10^3/uL (130-400); RBC 4.94 10^6/uL (4.36-5.78); RDW 12.9 % (11.8-14.1); RDW-SD 42.7 fL; WBC 5.02 10^3/uL (4.4-10.8)
[2024-05-11 12:23] LABS: ALT 30 U/L (16-63); AST 31 U/L (15-37); Albumin 3.8 g/dL (3.4-5.0); Alkaline Phosphatase 53 U/L (46-116); Anion Gap 10.2 mmol/L (3-11); BUN 15 mg/dL (7-18); Bilirubin, Total 0.48 mg/dL (0.2-1.0); CO2 24.8 mmol/L (21.0-32.0); Calcium 9.7 mg/dL (8.5-10.1); Chloride 106 mmol/L (98-107); Creatine Kinase 267 U/L (39-308); Estimated GFR 81.98 (mL/min/1.73m2); Glucose 150 mg/dL (74-106); Potassium 4.1 mmol/L (3.5-5.1); Sodium 141 mmol/L (136-145); Total Protein 7.1 g/dL (6.4-8.2)
[2024-05-12 15:51] LABS: PSA, Diagnostic 30.8 ng/mL (<=4.5)
[2024-05-13 09:02] LABS: Aldolase 4.5 U/L (<7.7)
== END 2024-05-11 10:56 | disposition home or self-care (01) ==
LOC: LOS 10:55
PROVIDERS: Urology; PCP Family Medicine; Visit Provider Internal Medicine Rheumatology
DX: R97.20 Elevated prostate specific antigen [PSA] (principal); G72.49 Other inflammatory and immune myopathies, not elsewhere classified
CPT/HCPCS: 36415; 80053; 82550; 82085; 84153; 85025

== ENCOUNTER → 2024-05-17 08:21 | Outpatient (BNVA) | payer MEDICARE, SELFPAY | PROVIDERS: PCP Family Medicine; Visit Provider Urology | DX: N42.89 Other specified disorders of prostate (principal); R97.20 Elevated prostate specific antigen [PSA] | CPT/HCPCS: 99214 ==

== ENCOUNTER 2024-06-20 03:17 | Outpatient (CLI) | payer MEDICARE, SELFPAY ==
[2024-06-20 12:28] LABS: Abs Immature Grans 0.01 10^3/uL (0.0-0.06); Absolute Basophil Count 0.05 10^3/uL (0.0-0.2); Absolute Lymphocyte Count 1.24 10^3/uL (1.2-3.4); Absolute Monocyte Count 0.56 10^3/uL (0.1-0.8); Absolute Neutrophil Count 2.49 10^3/uL (1.2-6.7); Basophils % 1.1 %; Eosinophils % 2.2 %; HGB 15.2 g/dL (13.5-17.5); Immature Grans % 0.2 %; Lymphocytes % 27.9 %; MCH 30.5 pg (27.0-33.0); MCV 92 fL (80-95); MPV 9.5 fL (8.0-11.0); Monocytes % 12.6 %; Platelet Count 186 10^3/uL (130-400); RBC 4.99 10^6/uL (4.36-5.78); RDW-SD 44.2 fL; WBC 4.45 10^3/uL (4.4-10.8)
[2024-06-20 13:08] LABS: ALT 38 U/L (16-63); AST 27 U/L (15-37); Albumin 3.8 g/dL (3.4-5.0); Alkaline Phosphatase 56 U/L (46-116); Anion Gap 9.3 mmol/L (3-11); BUN 16 mg/dL (7-18); Bilirubin, Total 0.54 mg/dL (0.2-1.0); CO2 26.7 mmol/L (21.0-32.0); CREATININE 0.9 mg/dL (0.70-1.30); Calcium 9.3 mg/dL (8.5-10.1); Chloride 107 mmol/L (98-107); Creatine Kinase 190 U/L (39-308); Estimated GFR 93.03 (mL/min/1.73m2); Glucose 124 mg/dL (74-106); Potassium 4.2 mmol/L (3.5-5.1); Sodium 143 mmol/L (136-145); Total Protein 6.7 g/dL (6.4-8.2)
[2024-06-22 10:09] LABS: Aldolase 4.7 U/L (<7.7)
== END 2024-06-20 03:18 | disposition home or self-care (01) ==
PROVIDERS: PCP Family Medicine; Visit Provider Internal Medicine Rheumatology
DX: G72.49 Other inflammatory and immune myopathies, not elsewhere classified (principal)
CPT/HCPCS: 36415; 80053; 82550; 82085; 85025

== ENCOUNTER 2024-08-01 09:05 | Outpatient (CLI) | payer MEDICARE, SELFPAY ==
[2024-08-01 08:30] LABS: Abs Immature Grans 0.01 10^3/uL (0.0-0.06); Absolute Basophil Count 0.07 10^3/uL (0.0-0.2); Absolute Eosinophil Count 0.13 10^3/uL (0.0-0.7); Absolute Lymphocyte Count 1.43 10^3/uL (1.2-3.4); Absolute Monocyte Count 0.67 10^3/uL (0.1-0.8); Basophils % 1.2 %; Eosinophils % 2.3 %; HCT 45.2 % (40.0-50.0); HGB 15.5 g/dL (13.5-17.5); Immature Grans % 0.2 %; MCH 30.2 pg (27.0-33.0); MCHC 34.3 % (32.0-36.0); MCV 88 fL (80-95); Monocytes % 11.7 %; Neutrophils % 59.6 %; Platelet Count 188 10^3/uL (130-400); RBC 5.13 10^6/uL (4.36-5.78); RDW 13.2 % (11.8-14.1); RDW-SD 42.8 fL; WBC 5.71 10^3/uL (4.4-10.8)
[2024-08-01 08:48] LABS: ALT 38 U/L (16-63); AST 30 U/L (15-37); Alkaline Phosphatase 53 U/L (46-116); Anion Gap 6.9 mmol/L (3-11); BUN 17 mg/dL (7-18); Bilirubin, Total 0.55 mg/dL (0.2-1.0); CO2 30.1 mmol/L (21.0-32.0); Calcium 9.5 mg/dL (8.5-10.1); Chloride 107 mmol/L (98-107); Creatine Kinase 272 U/L (39-308); Estimated GFR 81.98 (mL/min/1.73m2); Glucose 121 mg/dL (74-106); Potassium 4.4 mmol/L (3.5-5.1); Sodium 144 mmol/L (136-145); Total Protein 7.4 g/dL (6.4-8.2)
[2024-08-03 10:47] LABS: Aldolase 4.8 U/L (<7.7)
== END 2024-08-01 09:06 | disposition home or self-care (01) ==
LOC: LBO 09:05
PROVIDERS: PCP Family Medicine; Visit Provider Internal Medicine Rheumatology
DX: Z79.899 Other long term (current) drug therapy (principal); G72.49 Other inflammatory and immune myopathies, not elsewhere classified
CPT/HCPCS: 36415; 80053; 82550; 82085; 85025

== ENCOUNTER 2024-09-02 13:07 | Outpatient (CLI) | payer MEDICARE, SELFPAY ==
--- NOTE | 2024-09-02 11:00 | DI.RAD_ITS ---
Exam(s) XR THUMB LT EXAM: XR THUMB LT EXAM DATE/TIME: CLINICAL HISTORY: dilan thumb pain M79.645 PAIN LT FINGER. TECHNIQUE: 2D digital imaging was performed of the left finger. Three views were obtained. PA/AP, oblique, and lateral views were obtained. COMPARISON: None. FINDINGS: BONES: No acute fracture is present. No bony destructive lesion is seen. JOINTS: No dislocation is present. Marked degenerative changes are seen at the 1st CMC joint charact erized by joint space narrowing and osteophytes. There is also joint space narrowing and sclerosis s een at the articulation of the scaphoid and the trapezium bone. Old os of again CT's are seen at the dorsal aspect of the interphalangeal joint of the thumb. SOFT TISSUE: Normal. 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 DATA REPOSITORY: RADIATION DOSE DELIVERED:
--- NOTE | 2024-09-02 11:00 | DI.RAD_ITS ---
Exam(s) XR THUMB RT EXAM: XR THUMB RT CLINICAL HISTORY: dilan thumb pain M79.644 PAIN RT FINGER. TECHNIQUE: 2D digital imaging was performed of the right finger. Three views were obtained. PA/AP, oblique, and lateral views were obtained. COMPARISON: No exams were available for comparison FINDINGS: BONES: No acute fracture is present. No bony destructive lesion is seen. JOINTS: No dislocation present. There are moderate degenerative changes seen at the 1st CMC joint ch aracterized by joint space narrowing and osteophytes. Moderate degenerative changes are also seen at the interphalangeal joint of the thumb. SOFT TISSUE: Normal. 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 DATA REPOSITORY: RADIATION DOSE DELIVERED:
--- NOTE | 2024-09-02 11:00 | DI.RAD_ITS ---
Exam(s) XR LUMBAR SPINE COMPLETE EXAM: XR LUMBAR SPINE COMPLETE CLINICAL HISTORY: low back pain M54.9 DORSALGIA. TECHNIQUE: 2D digital imaging was performed of the lumbar spine. Five images were obtained. AP, la teral, right oblique, left oblique and L5-S1 spot views were obtained. COMPARISON: CR XR LUMBAR SPINE COMPLETE from 01/08/[address] ABDOMEN PELVIS W from 07/20/[address] CHEST WO from 03/30/2024 FINDINGS: BONES: No fracture or destructive lesion. Small endplate osteophytes are seen at several levels of th e lumbar spine. Degenerative changes of the facets are seen at L5-S1. The patient has a right total hip arthroplasty which is incompletely imaged. DISKS: Intervertebral disc spaces are maintained. ALIGNMENT: There is a very mild left convex curvature of the lumbar spine. Lumbar spinal alignment i s within normal limits. No spondylolysis or spondylolisthesis. SOFT TISSUE: Vascular calcifications are present. IMPRESSION: Mild to moderate degenerative changes in the lumbar spine. DATA REPOSITORY: RADIATION DOSE DELIVERED:
== END 2024-09-02 13:27 ==
LOC: DI 13:21
PROVIDERS: PCP Family Medicine; Visit Provider Family Medicine
DX: M19.041 Primary osteoarthritis, right hand (principal); M19.042 Primary osteoarthritis, left hand
CPT/HCPCS: 72110; 73140

== ENCOUNTER 2024-11-07 15:22 | Outpatient (CLI) | payer MEDICARE, SELFPAY ==
[2024-11-07 15:23] LABS: Abs Immature Grans 0.02 10^3/uL (0.0-0.06); Absolute Basophil Count 0.07 10^3/uL (0.0-0.2); Absolute Eosinophil Count 0.17 10^3/uL (0.0-0.7); Absolute Lymphocyte Count 1.33 10^3/uL (1.2-3.4); Absolute Neutrophil Count 2.61 10^3/uL (1.2-6.7); Basophils % 1.5 %; Eosinophils % 3.6 %; HCT 42.3 % (40.0-50.0); HGB 14.3 g/dL (13.5-17.5); Immature Grans % 0.4 %; Lymphocytes % 28.3 %; MCH 29.6 pg (27.0-33.0); MCHC 33.8 % (32.0-36.0); MCV 88 fL (80-95); MPV 9.1 fL (8.0-11.0); Monocytes % 10.6 %; Neutrophils % 55.6 %; Platelet Count 206 10^3/uL (130-400); RBC 4.83 10^6/uL (4.36-5.78); RDW 12.7 % (11.8-14.1); RDW-SD 40.7 fL
[2024-11-07 17:41] LABS: ALT 43 U/L (16-63); AST 49 U/L (15-37); Alkaline Phosphatase 58 U/L (46-116); Anion Gap 10.4 mmol/L (3-11); BUN 25 mg/dL (7-18); Bilirubin, Total 0.44 mg/dL (0.2-1.0); CO2 26.6 mmol/L (21.0-32.0); Calcium 9.8 mg/dL (8.5-10.1); Chloride 106 mmol/L (98-107); Estimated GFR 81.47 (mL/min/1.73m2); Glucose 130 mg/dL (74-106); Potassium 4.1 mmol/L (3.5-5.1); Sodium 143 mmol/L (136-145); Total Protein 7.3 g/dL (6.4-8.2)
[2024-11-07 17:42] LABS: Creatine Kinase 1148 U/L (39-308)
[2024-11-08 09:48] LABS: PSA, Diagnostic 29.9 ng/mL (<=4.5)
[2024-11-09 10:16] LABS: Aldolase 10.7 U/L (<7.7)
== END 2024-11-07 15:23 | disposition home or self-care (01) ==
LOC: LBO 15:23
PROVIDERS: Internal Medicine Rheumatology; PCP Family Medicine; Visit Provider Urology
DX: R97.20 Elevated prostate specific antigen [PSA] (principal); Z79.899 Other long term (current) drug therapy; G72.49 Other inflammatory and immune myopathies, not elsewhere classified
CPT/HCPCS: 36415; 80053; 82550; 82085; 84153; 85025

== ENCOUNTER → 2024-11-15 08:15 | Outpatient (BNVA) | payer MEDICARE, SELFPAY | PROVIDERS: PCP Family Medicine; Referring Provider Family Medicine; Visit Provider Urology | DX: N42.89 Other specified disorders of prostate (principal); R74.8 Abnormal levels of other serum enzymes; R97.20 Elevated prostate specific antigen [PSA] | CPT/HCPCS: 99214 ==

== ENCOUNTER 2024-11-24 12:58 | Outpatient (CLI) | payer MEDICARE, SELFPAY ==
--- NOTE | 2024-11-24 | DI.MRI_ITS ---
Exam(s) MR LUMBAR SPINE WO EXAM: MR LUMBAR SPINE WO CLINICAL HISTORY: Spinal stenosis of lumbar region with neurogenic claudication, M48.062;. TECHNIQUE: Multiplanar multisequence MRI of the Lumbar spine was performed. COMPARISON: CR XR LUMBAR SPINE COMPLETE from 09/02/2024 FINDINGS: Bones: The last intervertebral disc space is designated the L5/S1 level for the numbering purpose of this examination. The vertebral body heights are well maintained. Alignment is satisfactory. There is a round T1 and T2 hyperintense focus in the L4 vertebral body likely reflecting a hemangioma. The re is a similar smaller nodule seen in the T12 vertebral body. This also likely reflects a hemangiom a or fatty rest. Cord: The conus tip ends at the L1 level. It is of normal size and signal intensity. T12-L1: No disc herniations or bulges are present. No central spinal canal or neural foraminal stenos is. L1-2: No disc herniations or bulges are present. No central spinal canal or neural foraminal stenosis . L2-3: There is a mild diffuse disc bulge. No central spinal canal stenosis is seen. There is mild b ilateral neural foraminal stenosis. L3-4: There is a diffuse disc bulge at this level. There are prominent degenerative changes of the f acets and hypertrophy of the ligamentum flavum causing marked central spinal canal stenosis. There i s [id number] bilateral neural foraminal stenosis. L4-5: There is a diffuse disc bulge. There are hypertrophic changes of the facets and ligamentum fla vum. These all contribute to cause marked central spinal canal stenosis. There is a left-sided syno vial cyst measuring 1.2 cm which appears to extend into the neural foramen. This causes marked left neural foraminal stenosis. No significant right neural foraminal stenosis is present. L5-S1: There is a central disc herniation with extrusion posterior to the S1 vertebral body. There a re degenerative changes of the facets. These all contribute to cause moderately severe central spina l canal stenosis. There is bilateral lateral recess stenosis compressing both S1 nerve roots. There is [id number] bilateral neural foraminal stenosis. Soft tissues: The visualized SI joints and sacrum are well maintained. The paraspinal soft tissues ar e unremarkable. IMPRESSION: 1. Multilevel degenerative changes in the lumbar spine resulting in central spinal canal or neural fo raminal stenosis. The findings are most marked from L3-4 through L5-S1. 2. At L4-L5, there is marked neural foraminal stenosis and marked left neural foraminal stenosis. 3. At L3-L4, there is marked central spinal canal stenosis and [id number]-[id number] bilateral neural fora shannen stenosis. 4. At L5-S1, is a central extruded disc causing bilateral lateral recess stenosis. DATA REPOSITORY:
== END 2024-11-24 13:18 ==
LOC: DI 12:59
PROVIDERS: PCP Family Medicine; Visit Provider Student in an Organized Health Care Education/Training Program
DX: M48.062 Spinal stenosis, lumbar region with neurogenic claudication (principal)
CPT/HCPCS: 72148

== ENCOUNTER 2024-12-15 12:29 | Outpatient (CLI) | payer MEDICARE, SELFPAY ==
[2024-12-15 10:12] LABS: Abs Immature Grans 0.02 10^3/uL (0.0-0.06); Absolute Basophil Count 0.03 10^3/uL (0.0-0.2); Absolute Eosinophil Count 0.04 10^3/uL (0.0-0.7); Absolute Lymphocyte Count 0.76 10^3/uL (1.2-3.4); Absolute Neutrophil Count 5.24 10^3/uL (1.2-6.7); Basophils % 0.5 %; Eosinophils % 0.6 %; HCT 44.8 % (40.0-50.0); HGB 15.2 g/dL (13.5-17.5); Immature Grans % 0.3 %; Lymphocytes % 11.5 %; MCH 29.7 pg (27.0-33.0); MCHC 33.9 % (32.0-36.0); MCV 88 fL (80-95); MPV 9.3 fL (8.0-11.0); Monocytes % 7.6 %; Neutrophils % 79.5 %; Platelet Count 184 10^3/uL (130-400); RBC 5.12 10^6/uL (4.36-5.78); RDW 13.1 % (11.8-14.1); WBC 6.59 10^3/uL (4.4-10.8)
[2024-12-15 10:41] LABS: ALT 35 U/L (16-63); AST 28 U/L (15-37); Albumin 3.8 g/dL (3.4-5.0); Alkaline Phosphatase 52 U/L (46-116); Anion Gap 6.3 mmol/L (3-11); BUN 18 mg/dL (7-18); Bilirubin, Total 0.6 mg/dL (0.2-1.0); CO2 29.7 mmol/L (21.0-32.0); Calcium 9.7 mg/dL (8.5-10.1); Chloride 106 mmol/L (98-107); Creatine Kinase 321 U/L (39-308); Estimated GFR 81.47 (mL/min/1.73m2); Glucose 142 mg/dL (74-106); Potassium 4.3 mmol/L (3.5-5.1); Sodium 142 mmol/L (136-145)
[2024-12-17 11:29] LABS: Aldolase 7.8 U/L (<7.7)
== END 2024-12-15 12:30 | disposition home or self-care (01) ==
PROVIDERS: PCP Family Medicine; Visit Provider Internal Medicine Rheumatology
DX: Z79.899 Other long term (current) drug therapy (principal); G72.49 Other inflammatory and immune myopathies, not elsewhere classified
CPT/HCPCS: 36415; 80053; 82550; 82085; 85025

== ENCOUNTER 2024-12-26 09:25 | Inpatient (IN) | payer MEDICARE, SELFPAY ==
[2024-12-26] VITALS (106 sets, daily range): BP systolic 57–139; BP diastolic 31–96; PULSE 42–113; RESP 9–43; TEMP 36.5–37.1; O2SAT 87–95
--- NOTE | 2024-12-26 10:00 | RT.EKG_ITS ---
APPROVED REPORT Exam: Resting ECG Reason for Exam: dyspnea Patient Location: E HR:109 bpm ECG Measurements Heart Rate 109 AXIS VA 168 P 39 QRSd 114 QRS -22 QT 331 T 37 QTc 446 Conclusion Sinus tachycardia...rate> 99
--- NOTE | 2024-12-26 10:00 | DI.RAD_ITS ---
Exam(s) XR CHEST 2V PA LATERAL EXAM: XR CHEST 2V PA LATERAL CLINICAL HISTORY: cough. TECHNIQUE: 2D digital imaging was performed. COMPARISON: CR XR CHEST 2V PA LATERAL from 02/10/2024 FINDINGS: 2 views: Heart size is upper normal. The mediastinum is not widened. There is a large area of infiltrate in the mid posterior left lung, pleural based predominately left lower lobe. There is also some infiltrate in the right lung base. No obvious pleural effusions. IMPRESSION: Large pleural based infiltrate in the superior segment of the left lower lobe. Also infiltrate in th e right lung base. No pleural effusions.Recommend CT scan. DATA REPOSITORY: RADIATION DOSE DELIVERED:
--- NOTE | 2024-12-26 10:18 | W.ED.GENAD ---
Discharge Plan Disposition Patient Disposition: Admit to [facility] Condition: Critical Discharge Details Chief Complaint: RespSymp Clinical Impression: Lactic acidosis, Septic shock, Acute respiratory failure with hypoxia Admit Date/Time: 12/26/24 14:20 Admit Provider: Bashir Conti Attending Provider: Bashir Conti Primary Care Provider: Talon Constantino ED Provider: Alejandro Mcdermott Discharge Data Discharge Date/Time-TO BE ENTERED AT DEPARTURE: 12/26/24 15:59 HPI General Date/Time Provider Initiated Documentation: 12/26/24 09:30. Limitations to Documentation: no limitations. Information obtained by: patient. History of Present Illness 69 year old M presents to the emergency department with the chief complaint of dyspnea, fatigue, cough, described as moderate, Patient started experiencing this day(s) (1) and it has been constant. No relieving factors improve symptom(s), No exacerbating factors reported . Patient notes fever/chills and shortness of breath; denies chest pain. Patient did receive the following treatments prior to arrival, none Related Data Home Medications ?Medication ?Instructions ?Recorded ?Confirmed multivitamin 1 tab PO DAILY 03/03/22 12/26/24 prednisone 5 mg tablet 5 mg PO DAILY PRN myalgia #30 tabs 04/21/24 12/26/24 aspirin 81 mg tablet,delayed 81 mg PO DAILY 05/17/24 12/26/24 release tamsulosin 0.4 mg capsule 0.4 mg PO DAILY #180 caps 11/01/24 12/26/24 finasteride 5 mg tablet 5 mg PO DAILY #90 tabs 11/15/24 12/26/24 Previous Rx's ?Medication ?Instructions ?Recorded prednisone 5 mg tablet 5 mg PO DAILY PRN myalgia #30 tabs 04/21/24 tamsulosin 0.4 mg capsule 0.4 mg PO DAILY #180 caps 11/01/24 finasteride 5 mg tablet 5 mg PO DAILY #90 tabs 11/15/24 Allergies Allergy/AdvReac Type Severity Reaction Status Date / Time cat dander Allergy Hives Verified 12/26/24 11:07 pollen extracts Allergy Itching Verified 12/26/24 11:07 General Stated Complaint: RespSymp MARILEE: 3 Review of Systems All systems reviewed & are unremarkable except as noted in HPI and below Constitutional Constitutional: Reports chills, Reports fever(s) and Reports weakness Cardiovascular Cardiovascular: Reports dyspnea Respiratory Respiratory: Reports cough and Reports dyspnea Gastrointestinal Gastrointestinal: Denies abdominal pain, Denies nausea and Denies vomiting Neurologic Neurologic: Reports weakness Psychiatric Psychiatric: Denies depression Exam Const Orientation: alert [facility] Head: normal to inspection Ears: external ears normal General nose exam: external nose normal Mouth: moist mucous membranes Eyes General: appearance normal, both eyes and all related structures Neck Neck: normal visual inspection Resp Effort & Inspection: normal respiratory effort and able to speak in complete sentences Auscultation: rhonchi Cardio Jugular venous pressure: no JVD Rate: regular rate GI Palpation: soft and nontender Skin General skin exam: no rashes or lesions noted Neuro General: patient alert and patient oriented x3 Extrem General: normal to inspection Psych Mental Status: mental status grossly normal Course Vital Signs Vital signs: Vital Signs Pulse 111 H 12/26/24 09:52 Respiratory Rate 26 H 12/26/24 09:52 Pulse Oximetry 87 L 12/26/24 09:52 Temperature Source Oral 12/26/24 09:57 Pulse 111 H 12/26/24 09:57 Respiratory Rate 26 H 12/26/24 09:57 Blood Pressure Position Sitting 12/26/24 09:57 Pulse Oximetry 87 L 12/26/24 09:57 Oxygen Delivery Method Room Air 12/26/24 09:57 Oxygen Flow Rate 0 12/26/24 09:57 Pain Level 5 12/26/24 09:57 Lab/Test Results Lab/Test Results: 12/26/24 10:15 Blood Blood Culture - Pending 12/26/24 10:15 Blood Blood Culture - Pending Procedure Central Line Placement Date of Procedure: 12/26/24 Time of Procedure: 13:30 Provider that performed the procedure: Alejandro Mcdermott Indication: Central venous access Patient Consented: Written Standard Time Out Performed: Yes Sterility: Sterile Local Anesthetic: Lidocaine 1% and With Epi Amount of anesthetic used(mL): 6 Laterality: Right Insertion Site: Internal Jugular (IJ) Central Line Type: Triple Lumen Catheter Insertion Procedure: Vessel accessed with catheter over needle, catheter advanced, Guidewire placed with ease, Dermatotomy (skin shahriar) made with scalpel, Dilator placed without resistance, Introducer/Catheter placed without resistance, Guidewire removed and Claves placed, blood withdrawn, ports flushed and clamped Ultrasound: Other (used, images not saved) Number of Attempts(see previous attempts in note section): 1 Post Procedure: good blood return, all ports aspirated, flushed, capped and sutured in place with 2-0 silk Post Procedure X-Ray: other (CT chest ) Dressing: Tegaderm applied and BioPatch applied Procedure Tolerated: No Complications Procedure Outcome: Successful Medical Decision Making 69-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 He says this feels similar to when he had pneumonia in 2019. At that time he was also on methotrexate which he is not currently on. He denies any recent travel. He is a former smoker. He does appear fatigued on exam, he has rhonchi at the bases bilaterally, no JVD, no leg swelling or calf tenderness. Given his symptoms we will proceed with CBC, CMP, procalcitonin and lactate along with blood cultures, will check troponins and also obtain a chest x-ray. Given his rhonchi we will treat with a dose of Solu-Medrol and DuoNeb. Will also obtain a Fluvid. Patient's lactate elevated over 7, given this and his presentation I ordered cefepime and then vancomycin. Despite 2 L his lactate only minimally improved. He also has an JOHN. White count of over 20. Suspect septic shock. I initiated pressors for persistent maps in the high 50s low 60s. This was originally done through a peripheral IV and I placed a right-sided internal jugular central venous access line after patient gave consent. He tolerated that well without complications. I discussed the case with Dr. Littlejohn the hospitalist. Will plan for admission to the ICU. Will give hydrocortisone given he is chronically on prednisone and persistent hypotension. Radiology recommended doing a chest CT but given his JOHN we will hold off on contrast and proceed with noncontrast CT. Differential Diagnosis Differential Diagnosis: Pneumonia, COVID, flu Medical Records Medical records reviewed: Yes I reviewed the patient's medical records. Lab Data Lab results reviewed: Yes I reviewed the patient's lab results. ECG Data Attestation: I personally reviewed and interpreted this ECG (s) as follows: Prior ECG tracings: available for review Interpretation: Sinus tachycardia, rate of 109, [place] 168, no STEMI Quality:[facility] Health Related Social Needs: No Data to Display Critical Care Time Critical Care Time Critical Care Time: Yes Total Critical Care Time: 60 Attestation: Time spent on frequent reassessments and hemodynamic monitoring in a patient requiring pressors for hypotension due to septic shock and potential to deteriorate at any time. [facility] All Active Problems (Updated 12/27/24 @ 14:10 by Alejandro Mcdermott MD) Lactic acidosis (Acute) Hypomagnesemia (Acute) Acute kidney injury (Acute) DVT prophylaxis (Acute) Septic shock (Acute) Bilateral thumb pain (Acute) Low back pain (Acute) Weight loss (Acute) Abdominal pain (Acute) Primary osteoarthritis of left hip (Acute) Left groin pain (Acute) History of total right hip replacement (Acute 03/04/22) Venous insufficiency of left leg (Acute 12/23/16) Prediabetes (Acute 12/23/16) Benign prostatic hyperplasia (Acute 12/23/16) with elevated PSA TRUS biopsies negative X 2 Myositis (Acute ~11/25/18) 11/25/18 [facility] [place] Phlebitis after infusion (Acute) Necrotizing myopathy (Acute) 05/11/19 [facility] [place] Pain of left calf (Acute) Well adult (Acute) Elevated PSA (Acute) Spinal stenosis of lumbar region with neurogenic claudication (Acute ~01/30/20) [facility] [place] Autoimmune necrotizing myopathy (Acute ~01/30/20) [facility] [place] Chronic steroid use (Acute) Acute respiratory failure with hypoxia (Acute) Steroid-induced hyperglycemia (Acute) Multifocal pneumonia (Acute) Sepsis (Acute) Edema (Acute) Herpes zoster (Acute) DVT (deep venous thrombosis) (Chronic) Pain of right hip (Acute) Preventative health care (Acute) Surgical History History of tonsillectomy History of colonoscopy Status post right inguinal hernia repair Family History Father , age 71 Pancreatic cancer Mother No problems noted. Sister No problems noted. Maternal Grandfather , 94 Heart disease Paternal Grandfather , 54 Leukemia Maternal Grandmother , 101 No problems noted. Paternal Grandmother , 93 No problems noted. Son No problems noted. Son No problems noted. Daughter No problems noted. Social History (Updated 12/26/24 @ 15:02 by Bashir Conti) Smoking/Tobacco Use Status: Former Tobacco Use tobacco type: cigarettes Quit Date: 10/14/16 Tobacco: How many years used: 40 Quit status: quit date established Second Hand Exposure: Yes Smoking risk assessment performed?: Yes Alcohol Intake: current Alcohol Intake frequency: a few times a week Alcohol type: beer Drug use: Never Substance use type: does not use Counseling given: No Caregiver/Support person: Yes Household members: spouse Housing: house Communication Needs: None Do you need help understanding health information?: Rarely Pets and animals: No Sexually active: Yes Do you think of yourself as: straight/heterosexual Current gender identity: male What is your relationship status?: How often do you talk on the phone with friends or family?: three or more times per week How often do you get together with friends or relatives?: three or more times per week How often do you attend roman catholic or latter day services?: decline to answer Do you belong to any clubs or organized social groups?: no Panel score (0-1 are the most socially isolated patients): 2 What type of physical activity do you participate in: other Details: PT Duration: 60-90 minutes/day Frequency: daily Harmony/Mosque: Latter Day Special harmony needs: No Seatbelt use: always Helmet use: Yes Helmet use: always Drive intox or ride w/intox hyster driver: No Do you feel safe at home: Yes Do you feel safe in your relationship?: Yes Additional Social history: Retired age 49 from [employer], home [place] with family in [place] [facility] [place]. Lives with Debora, no pets PAWSS Have you Been Recently Intoxicated or Drunk Within the Last 30 days?: No Have you Ever Experienced Previous Episodes of Alcohol Withdrawal?: No Have you ever Experienced Withdrawal Seizures?: No Have you ever Experienced Delirium Tremens(DT)s?: No Have you ever undergone Alcohol Rehabilitation Treatment (i.e, inpt ot outpatient treatment programs)?: No Have you ever Experienced Blackouts?: No Have you ever Combined Alcohol with other Downers within the last 90 days?: No Have you ever Combined Alcohol with any other Substance of Abuse during the last 90 days?: No Result: 0 POCUS Exam (ED) Limited Cardiac Exam REASON FOR EXAM: Dyspnea VISUALIZED STRUCTURES: Left ventricle and Right ventricle VIEW OBTAINED: Parasternal long-axis PERTINENT FINDINGS/IMPRESSION: No LV dysfunction Exam complete
[2024-12-26 10:24] LABS: BE (Venous) -6 mmol/L (-2-3); HCO3 (Venous) 20 mmol/L (23-28); O2 Sat (Venous) 75 %; TCO2 (Venous) 17 mmol/L (24-29); pCO2 (Venous) 34 mmHg (41-51); pH (Venous) 7.37 (7.31-7.41); pO2 (Venous) 39 mmHg
[2024-12-26 10:26] LABS: HGB 15.3 g/dL (13.5-17.5); MCH 29.9 pg (27.0-33.0); MCHC 33.3 % (32.0-36.0); MCV 90 fL (80-95); MPV 9.4 fL (8.0-11.0); Platelet Count 151 10^3/uL (130-400); RBC 5.11 10^6/uL (4.36-5.78); RDW 13.4 % (11.8-14.1); RDW-SD 44.3 fL; WBC 24.18 10^3/uL (4.4-10.8)
[2024-12-26 10:29] LABS: Lactate 7.8 mmol/L (<or=2.0)
[2024-12-26] MEDS: Albuterol/Ipratropium 3 ML UPD VIAL UPD (10:47)
[2024-12-26] MEDS: methylPREDNISolone SUCC 125 MG VIAL IVP (10:47)
[2024-12-26] MEDS: CEFEPIME 2 GM in Normal Saline 100 ML IVPB (10:48)
[2024-12-26] MEDS: Normal Saline 1,000 ML 1000 ML IV ×3 (10:50→14:15)
[2024-12-26 10:51] LABS: COVID-19 PCR Negative (Negative); Influenza A PCR Negative (Negative); Influenza B PCR Negative (Negative); RSV PCR Negative (Negative); Source Nasopharynx
[2024-12-26 10:56] LABS: NT-proBNP 4421 pg/mL (<300); Troponin I 8 ng/L (<or=76)
[2024-12-26 10:58] LABS: Absolute Lymphocyte Count 0.48 10^3/uL (1.2-3.4); Absolute Monocyte Count 0.48 10^3/uL (0.1-0.8); Absolute Neutrophil Count 22.73 10^3/uL (1.2-6.7); Atypical Lymphocytes % 1 %; Bands % 12 %; Diff Comment Manual Differential; Metamyelocytes % 2; RBC Morphology Normal
[2024-12-26 10:59] LABS: Procalcitonin 58.42 ng/mL
[2024-12-26 12:18] LABS: Troponin I 9 ng/L (<or=76)
[2024-12-26] MEDS: Norepinephrine in D5W 8 MG/250 ML BAG 9.375 MG IV (12:20)
[2024-12-26 12:35] LABS: Lactate 7.2 mmol/L (<or=2.0)
[2024-12-26] MEDS: VANCOMYCIN/WATER (PEG) 2 GM/400 ML BAG IVPB (12:38)
[2024-12-26 12:41] LABS: ALT 24 U/L (16-63); AST 35 U/L (15-37); Albumin 2.7 g/dL (3.4-5.0); Alkaline Phosphatase 49 U/L (46-116); Anion Gap 19.6 mmol/L (3-11); BUN 40 mg/dL (7-18); Bilirubin, Total 1.6 mg/dL (0.2-1.0); CO2 15.4 mmol/L (21.0-32.0); CREATININE 2.8 mg/dL (0.70-1.30); Calcium 8.7 mg/dL (8.5-10.1); Chloride 104 mmol/L (98-107); Estimated GFR 23.68 (mL/min/1.73m2); Glucose 130 mg/dL (74-106); Magnesium 1.3 mg/dL (1.8-2.4); Sodium 139 mmol/L (136-145); Total Protein 5.9 g/dL (6.4-8.2)
[2024-12-26] MEDS: MAGNESIUM SULFATE 2 GM/50 ML BAG IV_INF (13:17)
--- NOTE | 2024-12-26 13:30 | DI.CT_ITS ---
Exam(s) CT CHEST WO EXAM: CT CHEST WO CLINICAL HISTORY: hypoxia, multifolcal pneumonia, line placement TECHNIQUE: Imaging Protocol: Axial computed tomography images with coronal and sagittal reformatted images were created and reviewed. Computer aided detection (CAD) was utilized. CONTRAST MATERIAL: Noncontrast. COMPARISON: CT CT CHEST WO from 01/02/2021 CR XR CHEST 2V PA LATERAL from 02/10/[address] CHEST WO from 03/30/2024 CR XR CHEST 2V PA LATERAL from 12/26/2024 FINDINGS: Exam is mildly limited by patient's inability to raise the arms which creates streak artifact. Ther e is also poor pulmonary inflation. Pulmonary parenchyma: Large area of consolidation is noted in the left lower lobe with some sparing o f the lung base. There are mild infiltrates versus atelectasis in the right upper and lower lobes. No dominant measurable mass. Tracheobronchial tree: No bronchiectasis or mucous plugging. Mediastinum and Evonne: No dominant adenopathy or fluid collection. Pleura: No effusion. No pneumothorax. Heart: The heart is mild dilated. Mild coronary artery calcifications are seen. Aorta: Thoracic aorta non-dilated. Mild atherosclerotic changes. Pulmonary arteries: No gross evidence of emboli. Upper abdomen: No acute findings. Bones: Degenerative changes in the spine. Soft tissues: Unremarkable. IMPRESSION: Large area of consolidation involving the majority of the left lower lobe. Milder infiltrates noted in the right upper and lower lobes. RADIATION DOSE DELIVERED: Total DLP DATA REPOSITORY: All CT scans at this facility are submitted to the National Radiology Data Registry (NRDR) Dose Index Registry (DIR) with the [employer] (ACR). RADIATION OPTIMIZATION: All CT scans at this facility use at least one of these dose optimization te chniques: automated exposure control; mA and/or kV adjustment per patient size (includes targeted exa ms where dose is matched to clinical indication); or iterative reconstruction.
[2024-12-26] MEDS: Lidocaine 1% Multi-Dose W/EPI 1/100,000 50 ML VIAL (13:50)
[2024-12-26] MEDS: Hydrocortisone SOD SUC. 100 MG VIAL IVP ×2 (13:53→21:58)
[2024-12-26 14:11] LABS: Lactate 7.5 mmol/L (<or=2.0)
--- NOTE | 2024-12-26 14:25 | HPE_ITS ---
Date of service: 12/26/24 Time of Service: 13:26 Assessment and Plan Assessment and plan (1) Septic shock: Status: Acute Assessment and plan: Classic septic shock with elevated HR, RR, temperature, and hypotension despite 30ml/kg fluids. Source is pneumonia Started on norepinephrine drip. On cefepime and vancomycin, continue with renal dosing. Once he has stabilized, we could consider MRSA swab and stop vanco if negative. blood cultures pending. We also need u/a, ordered. Viral swabs negative Diarrhea but not inflammatory, no recent abx, but get c diff if diarrhea persists He is at high risk of adrenal insufficiency with chronic prednisone and recent taper, given stress dose steroids POCUS c/w normal LV function, no other clear cardiac cause for shock. (2) Multifocal pneumonia: Status: Acute Assessment and plan: On CXR, on CT disease is most notable in that superior left lower lobe. Abx as above. (3) Autoimmune necrotizing myopathy: Status: Acute Assessment and plan: Recent taper of medications, but he does not seem to have relapse of his myositis symptoms. CPK is up but mildly so He is on steroids, continue off cellcept (4) Benign prostatic hyperplasia: Status: Acute Assessment and plan: With elevated PSA but negative biopsies. On finasteride and tamsulosin, will continue to avoid retention. He declines arriaga for now, follow bladder scans. (5) Acute respiratory failure with hypoxia: Status: Acute Assessment and plan: Secondary to pneumonia with septic shock. Stable on 4 liters O2 via NC. (6) Chronic steroid use: Status: Acute Assessment and plan: As above on hydrocortisone for possible adrenal insuffiency. Cortisone pending. (7) Acute kidney injury: Status: Acute Assessment and plan: Assocated with sepsis. He is also at risk for obstruction. Fluids and monitor bladder scans. Mild CPK elevation not likely high enough to contribute, but we do need u/a. Strict I/Os. (8) Hypomagnesemia: Status: Acute Assessment and plan: s/p 2g, follow in AM (9) Lactic acidosis: Status: Acute Assessment and plan: a/w sepsis, follow (10) DVT prophylaxis: Status: Acute Assessment and plan: High risk with h/o DVT, enoxaparin History of Present Illness History of Present Illness Chief Complaint: fatigue Narrative: 69 yo M with history of autoimmune necrotizing myositis who has been tapering his prednisone and recently stopped his CellCept who presented to the emergency room with profound general weakness, fevers, vomiting, and diarrhea that started yesterday morning. He woke yesterday and felt like he could barely get out of bed. He developed a cough, fever to 101 and chills. He had some coffee and vomited that up. He continued to take fluids but vomited 3-4 times and started having loose stools. Has had about 6 loose stools just since last night. He hasn't had appetite and hasn't had solid foods since yesterday. He was coughing up some sputum, no blood. He has not had headache or neck pain. He has not had chest pain or abdominal pain. He does have issues with slow urine flow and hasn't urinated yet today, but hasn't had dysuria or hematuria previously. He has not had focal joint pain or swelling or any rashes or open sores. He has chronic numbness and some weakness in his feet related to his spinal stenosis, with no recent change. He was at a youth basketball game in a gym on Thursday before this happened, but felt fine. He did visit his 102 yo aunt at rehab where she is recovering from influenza and pneumonia. He was also at [facility] on Thursday for a visit for his spinal stenosis. He had tapered his steroids down to 5mg about a week ago from 10mg. He wanted to get off of them. He stopped his Cellcept in preparation for upcome back surgery on Thursday, the day before this started. He states he got very sick when tapering his steroids once previously years ago and was diagnosed with PJP pneumonia and was transfered to [facility]. Review of Systems All systems reviewed & are unremarkable except as noted in HPI and below PFSH All Active Problems (Updated 12/26/24 @ 15:17 by Bashir Conti) Lactic acidosis (Acute) Hypomagnesemia (Acute) Acute kidney injury (Acute) DVT prophylaxis (Acute) Septic shock (Acute) Bilateral thumb pain (Acute) Low back pain (Acute) Weight loss (Acute) Abdominal pain (Acute) Primary osteoarthritis of left hip (Acute) Left groin pain (Acute) History of total right hip replacement (Acute 03/04/22) Preventative health care (Acute) Pain of right hip (Acute) DVT (deep venous thrombosis) (Chronic) Herpes zoster (Acute) Edema (Acute) Sepsis (Acute) Multifocal pneumonia (Acute) Steroid-induced hyperglycemia (Acute) Acute respiratory failure with hypoxia (Acute) Chronic steroid use (Acute) Autoimmune necrotizing myopathy (Acute ~01/30/20) [facility] Spinal stenosis of lumbar region with neurogenic claudication (Acute ~01/30/20) [facility] Elevated PSA (Acute) Well adult (Acute) Pain of left calf (Acute) Necrotizing myopathy (Acute) 05/11/[address] [facility] Phlebitis after infusion (Acute) Myositis (Acute ~11/25/18) 11/25/[address] [facility] Benign prostatic hyperplasia (Acute 12/23/16) with elevated PSA TRUS biopsies negative X 2 Prediabetes (Acute 12/23/16) Venous insufficiency of left leg (Acute 12/23/16) Surgical History History of tonsillectomy History of colonoscopy Status post right inguinal hernia repair Family History Father , age 71 Pancreatic cancer Mother No problems noted. Sister No problems noted. Maternal Grandfather , 94 Heart disease Paternal Grandfather , 54 Leukemia Maternal Grandmother , 101 No problems noted. Paternal Grandmother , 93 No problems noted. Son No problems noted. Son No problems noted. Daughter No problems noted. Social History (Updated 12/26/24 @ 15:02 by Bashir Conti) Smoking/Tobacco Use Status: Former Tobacco Use tobacco type: cigarettes Quit Date: 10/14/16 Tobacco: How many years used: 40 Quit status: quit date established Second Hand Exposure: Yes Smoking risk assessment performed?: Yes Alcohol Intake: current Alcohol Intake frequency: a few times a week Alcohol type: beer Drug use: Never Substance use type: does not use Counseling given: No Caregiver/Support person: Yes Household members: spouse Housing: house Communication Needs: None Do you need help understanding health information?: Rarely Pets and animals: No Sexually active: Yes Do you think of yourself as: straight/heterosexual Current gender identity: male What is your relationship status?: How often do you talk on the phone with friends or family?: three or more times per week How often do you get together with friends or relatives?: three or more times per week How often do you attend sabianism or christianity services?: decline to answer Do you belong to any clubs or organized social groups?: no Panel score (0-1 are the most socially isolated patients): 2 What type of physical activity do you participate in: other Details: PT Duration: 60-90 minutes/day Frequency: daily Harmony/Muslim: Jain Special harmony needs: No Seatbelt use: always Helmet use: Yes Helmet use: always Drive intox or ride w/intox hook up driver: No Do you feel safe at home: Yes Do you feel safe in your relationship?: Yes Additional Social history: 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 Lives with Debora, no pets Meds Allergies and Home Medications Allergies Allergy/AdvReac Type Severity Reaction Status Date / Time cat dander Allergy Hives Verified 12/26/24 11:07 pollen extracts Allergy Itching Verified 12/26/24 11:07 Home Medications ?Medication ?Instructions ?Recorded ?Confirmed ?Type multivitamin 1 tab PO DAILY 03/03/22 12/26/24 History prednisone 5 mg tablet 5 mg PO DAILY PRN myalgia #30 tabs 04/21/24 12/26/24 Rx aspirin 81 mg tablet,delayed 81 mg PO DAILY 05/17/24 12/26/24 History release tamsulosin 0.4 mg capsule 0.4 mg PO DAILY #180 caps 11/01/24 12/26/24 Rx finasteride 5 mg tablet 5 mg PO DAILY #90 tabs 11/15/24 12/26/24 Rx Exam Narrative Exam Narrative: GEN: Alert and oriented x 4, pleasant and cooperative, gives linear history. Appears mildly diaphoretic and dyspneic but not in distress at rest. HEENT: Head atraumatic. Conjunctiva clear, no icterus. PEERL, EOMI. no rhinorrhea. MM dry, OP benign. Neck is supple with no masses or lymphadenopathy, trachea midline LUNGS: Tachypneic, no wheeze, bibasilar rales more on left. CV: RRR with no murmurs, gallops, or rubs. Cap refil 2-3 seconds in toes dilan. ABD: active bowel sounds, soft, nontender and nondistended. No masses. EXT: no cyanosis, clubbing, or edema. warm MSK: No joint redness or swelling NEURO: CN 2-12 grossly intact. Normal movement of 4 extremities. Normal speech and coordination. No tremor SKIN: No rashes or open wounds. PSYCH: normal mood and affect, normal thought process Results Imaging Chest x-ray: report reviewed (Large pleural based infiltrate in the superior segment of the left lower lobe. Also infiltrate in the right lung base. No pleural effusions.Recommend CT scan.) and image reviewed CT scan - chest: report reviewed (pending) and image reviewed (large consolidation of superior left lower lobe) EKG: report reviewed and image reviewed (sinus tachycardia, nl axis, intervals, no ST-T abnormalities) Labs 12/26/24 10:17 12/26/24 11:42 Labs: Laboratory Results - last 24 hr 12/26/24 12/26/24 12/26/24 09:58 10:10 10:17 WBC 24.18 H RBC 5.11 Hgb 15.3 Hct 46.0 MCV 90 MCH 29.9 MCHC 33.3 RDW 13.4 Plt Count 151 MPV 9.4 Immature Gran % 0.0 Neutrophils % 82.0 Band Neutrophils % 12 Lymphocytes % 1.0 Atypical Lymphs % 1 Monocytes % 2.0 Eosinophils % 0.0 Basophils % 0.0 Metamyelocytes % 2 Nucleated RBC % 0.0 Absolute Neutrophils 22.73 H Absolute Lymphocytes 0.48 L Absolute Monocytes 0.48 Absolute Eosinophils 0.00 Absolute Basophils 0.00 RBC Morphology Normal VBG pH 7.37 VBG pCO2 34 L VBG pO2 39 VBG HCO3 20 L VBG Total CO2 17 L VBG O2 Saturation 75 VBG Base Excess -6 L VBG Lactate 7.8 H* Sodium Cancelled Potassium Cancelled Chloride Cancelled Carbon Dioxide Cancelled Anion Gap Cancelled BUN Cancelled Creatinine Cancelled Est GFR (CKD-EPI 2020) Cancelled Glucose Cancelled Calcium Cancelled Magnesium Cancelled Total Bilirubin Cancelled AST Cancelled ALT Cancelled Alkaline Phosphatase Cancelled Troponin I 8 NT-Pro-B Natriuret Pep 4421 H Total Protein Cancelled Albumin Cancelled Procalcitonin 58.42 COVID-19 Source Nasopharynx SARS-CoV-2 (PCR) Negative Influenza Type A (PCR) Negative Influenza Type B (PCR) Negative RSV (PCR) Negative 12/26/24 12/26/24 12/26/24 11:42 12:26 14:02 WBC RBC Hgb Hct MCV MCH MCHC RDW Plt Count MPV Immature Gran % Neutrophils % Band Neutrophils % Lymphocytes % Atypical Lymphs % Monocytes % Eosinophils % Basophils % Metamyelocytes % Nucleated RBC % Absolute Neutrophils Absolute Lymphocytes Absolute Monocytes Absolute Eosinophils Absolute Basophils RBC Morphology VBG pH VBG pCO2 VBG pO2 VBG HCO3 VBG Total CO2 VBG O2 Saturation VBG Base Excess VBG Lactate 7.2 H* 7.5 H* Sodium 139 Potassium 4.0 Chloride 104 Carbon Dioxide 15.4 L Anion Gap 19.6 H BUN 40 H Creatinine 2.8 H Est GFR (CKD-EPI 2020) 23.68 Glucose 130 H Calcium 8.7 Magnesium 1.3 L Total Bilirubin 1.6 H AST 35 ALT 24 Alkaline Phosphatase 49 Troponin I 9 NT-Pro-B Natriuret Pep Total Protein 5.9 L Albumin 2.7 L Procalcitonin COVID-19 Source SARS-CoV-2 (PCR) Influenza Type A (PCR) Influenza Type B (PCR) RSV (PCR) Last Vital Signs Pulse 100 H 12/26/24 14:01 Resp 39 H 12/26/24 14:01 BP 88/56 L 12/26/24 14:01 Pulse Ox 94 12/26/24 14:06 PAWSS Have you Been Recently Intoxicated or Drunk Within the Last 30 days?: No Have you Ever Experienced Previous Episodes of Alcohol Withdrawal?: No Have you ever Experienced Withdrawal Seizures?: No Have you ever Experienced Delirium Tremens(DT)s?: No Have you ever undergone Alcohol Rehabilitation Treatment (i.e, inpt ot outpatient treatment programs)?: No Have you ever Experienced Blackouts?: No Have you ever Combined Alcohol with other Downers within the last 90 days?: No Have you ever Combined Alcohol with any other Substance of Abuse during the last 90 days?: No Result: 0 Time Spent Time spent with Patient: >75 minutes Time was spent: preparing to see the patient(eg.review tests), obtaining and/or reviewing separately otained hiistory, ordering medications,tests, procedures, referring, communicating with other health critical care unit manager, indepentently interpreting results, counseling the patient and care coordination
[2024-12-26 14:52] LABS: Lab Add On Test DONE
[2024-12-26 15:07] LABS: Creatine Kinase 393 U/L (39-308)
[2024-12-26] MEDS: Pantoprazole 40 MG VIAL IVP (15:10)
[2024-12-26] MEDS: Enoxaparin 40 MG/0.4 ML SYR SC (17:49)
[2024-12-26] MEDS: Lidocaine 2% Jelly 11 ML SYR UR (17:56)
[2024-12-26 18:16] LABS: Bilirubin Negative (Negative); Blood Trace-intact (Negative); Clarity Clear (Clear); Glucose Negative (Negative); Ketones 15 mg/dL (Negative); Leukocyte Esterase Negative (Negative); Nitrite Negative (Negative); Urobilinogen 0.2 mg/dL (Up to 0.2)
[2024-12-26 18:28] LABS: Epithelial Cells Rare HPF (Negative)
[2024-12-26 18:29] LABS: Bacteria Moderate HPF (Negative); Crystals Negative HPF (Negative); Mucus Trace (Negative)
[2024-12-26 18:30] LABS: C & S Indicated? No
[2024-12-26] MEDS: Norepinephrine in D5W 8 MG/250 ML BAG 37.5 MG IV (19:16)
[2024-12-26] MEDS: Normal Saline Flush 10 ML SYR IVP (21:14)
[2024-12-26] MEDS: Lactated Ringers 1,000 ML 150 ML IV (21:57)
[2024-12-27] VITALS (41 sets, daily range): BP systolic 82–120; BP diastolic 59–89; PULSE 69–152; RESP 15–31; TEMP 36.9–37.7; O2SAT 90–95
[2024-12-27] MEDS: Lactated Ringers 1,000 ML 150 ML IV (04:43)
[2024-12-27] MEDS: Hydrocortisone SOD SUC. 100 MG VIAL IVP (05:27)
[2024-12-27] MEDS: Normal Saline Flush 10 ML SYR IVP ×3 (05:48→21:36)
[2024-12-27 05:50] LABS: Abs Immature Grans 2.99 10^3/uL (0.0-0.06); Lactate 4.8 mmol/L (<or=2.0); MCH 30.2 pg (27.0-33.0); MCHC 34.2 % (32.0-36.0); MCV 88 fL (80-95); MPV 9.2 fL (8.0-11.0); Platelet Count 133 10^3/uL (130-400); RBC 4.31 10^6/uL (4.36-5.78); RDW 13.5 % (11.8-14.1)
[2024-12-27 05:59] LABS: WBC 25.99 10^3/uL (4.4-10.8)
[2024-12-27 06:07] LABS: ALT 40 U/L (16-63); AST 59 U/L (15-37); Albumin 2.5 g/dL (3.4-5.0); Alkaline Phosphatase 70 U/L (46-116); Anion Gap 10.2 mmol/L (3-11); BUN 32 mg/dL (7-18); Bilirubin, Total 0.7 mg/dL (0.2-1.0); CO2 21.8 mmol/L (21.0-32.0); CREATININE 1.5 mg/dL (0.70-1.30); Calcium 9.3 mg/dL (8.5-10.1); Chloride 108 mmol/L (98-107); Estimated GFR 50.08 (mL/min/1.73m2); Glucose 196 mg/dL (74-106); Magnesium 2.2 mg/dL (1.8-2.4); Potassium 3.7 mmol/L (3.5-5.1); Sodium 140 mmol/L (136-145); Total Protein 6.1 g/dL (6.4-8.2)
[2024-12-27 06:13] LABS: Vancomycin, Random 7.6 ug/mL
[2024-12-27 06:14] LABS: Absolute Basophil Count 0.26 10^3/uL (0.0-0.2); Absolute Eosinophil Count 0.26 10^3/uL (0.0-0.7); Absolute Lymphocyte Count 0.26 10^3/uL (1.2-3.4); Absolute Monocyte Count 1.56 10^3/uL (0.1-0.8); Absolute Neutrophil Count 22.61 10^3/uL (1.2-6.7); Bands % 5 %; Diff Comment Manual Differential; Metamyelocytes % 4; RBC Morphology Normal
--- NOTE | 2024-12-27 08:37 | PDOC.CMIN ---
Date of service: 12/27/24 Time of Service: 08:38 Care Management Initial Assmt Initial Assessment Reason for Hospitalization: Septic Shock, Multifocal Pneumonia Functional Status/Living Situation Patient Presentation: Jeison continues to be closely monitored and treated with IV ABX, in the ICU. He is pleasant and easily engages in conversation and shared with CM that his major concern at this time is having to go without [employer] ice cream. Jeison shares that he lives in [place] with his , Brenda, 4 adult children and 5 grandchildren. He clarified that his children don't actually live with him, they live in the same housing complex and have their own homes. 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 Jeison is active and independent at baseline and is planning to have back surgery next month. Town of Residence: [place] Resides with: Spouse (Brenda) Significant Other/Family: Local [employer] Supports: and adult children and grandchildren Employment Status: Retired ([employer]) Instrumental Activities of Daily Living (ADLs): Independent Medications Medication Management: No Issues/Barriers identified Physical Functioning/Mobility Assistive Device: None Advance Directives Advance Directives: Do you have an Advance Directive: Y 08/14/20 10:09 AD On File at [facility]: Y 08/14/20 10:09 Date Asked 12/26/13 08/14/20 10:09 AD Date Reviewed 12/26/24 12/26/24 16:18 COLST On File at [facility] COLST Date Scanned Code Status Resuscitation Status Full Code Insurance Coverage/Financial Issues Insurance: Medicare Part A & B - [id number] [place] Medical Plan [facility] Supp - [id number] Care Team Visit Care Team Role Provider Type Talon Constantino MD Primary Care Provider [facility] STAFF PHYSICIAN Alejandro Mcdermott MD Emergency Provider [facility] STAFF PHYSICIAN Bashir Conti Admit Provider [facility] STAFF PHYSICIAN Attending Provider Discharge Potential Discharge Needs: PCP F/U Appt Anticipated Barriers to Discharge: None Identified Patient/Family Education Needs: Review discharge instructions, discuss Ask Me Three Transportation: Private vehicle Plan: Jeison continues to be closely monitored and treated in the ICU. Anticipate, he will return home via private vehicle when medically ready for discharge. He will follow up with his outpatient providers and plan of care as directed. No additional services anticipated at this time. CM continues to follow. Social Determinants of Health Screening Social Determinants of health last assessed in clinic: 12/27/24 Will the Patient Participate in the Screening?: Yes Do you worry about having a steady place to live?: no Problems where you live: no known problems In the past 12 months, have you had to go without electric, gas, oil or water in your home?: no 1. Within the past 12 months, we worried whether our food would run out before we got money to buy more.: Never true 2. Within the past 12 months, the food we bought just didn't last and we didn't have money to get more.: Never true Has lack of transportation kept you from medical appointments or from doing things needed for daily living?: no Has anyone in your life made you feel unsafe or unsupported?: no How hard is it for you to pay for the very basics like food, housing, medical care, and heating? Would you say it is:: Not hard at all Do you want help finding or keeping work or a job?: I do not need or want help If for any reason you need help with day-to-day activities such as bathing, preparing meals, shopping, managing finances, etc., do you get the help you need?: I don?t need any help How often do you feel lonely or isolated from those around you?: Never Do you speak a language other than Turkmen at home?: No Does the patient want assistance with any of the above?: No PFSH All Active Problems (Updated 12/27/24 @ 14:10 by Alejandro Mcdermott MD) Lactic acidosis (Acute) Hypomagnesemia (Acute) Acute kidney injury (Acute) DVT prophylaxis (Acute) Septic shock (Acute) Bilateral thumb pain (Acute) Low back pain (Acute) Weight loss (Acute) Abdominal pain (Acute) Primary osteoarthritis of left hip (Acute) Left groin pain (Acute) History of total right hip replacement (Acute 03/04/22) Venous insufficiency of left leg (Acute 12/23/16) Prediabetes (Acute 12/23/16) Benign prostatic hyperplasia (Acute 12/23/16) with elevated PSA TRUS biopsies negative X 2 Myositis (Acute ~11/25/18) 11/25/18 [facility] Phlebitis after infusion (Acute) Necrotizing myopathy (Acute) 05/11/19 [facility] Pain of left calf (Acute) Well adult (Acute) Elevated PSA (Acute) Spinal stenosis of lumbar region with neurogenic claudication (Acute ~01/30/20) [facility] Autoimmune necrotizing myopathy (Acute ~01/30/20) [facility] Chronic steroid use (Acute) Acute respiratory failure with hypoxia (Acute) Steroid-induced hyperglycemia (Acute) Multifocal pneumonia (Acute) Sepsis (Acute) Edema (Acute) Herpes zoster (Acute) DVT (deep venous thrombosis) (Chronic) Pain of right hip (Acute) Preventative health care (Acute) Surgical History History of tonsillectomy History of colonoscopy Status post right inguinal hernia repair Family History Father , age 71 Pancreatic cancer Mother No problems noted. Sister No problems noted. Maternal Grandfather , 94 Heart disease Paternal Grandfather , 54 Leukemia Maternal Grandmother , 101 No problems noted. Paternal Grandmother , 93 No problems noted. Son No problems noted. Son No problems noted. Daughter No problems noted. Social History (Updated 12/26/24 @ 15:02 by Bashir Conti) Smoking/Tobacco Use Status: Former Tobacco Use tobacco type: cigarettes Quit Date: 10/14/16 Tobacco: How many years used: 40 Quit status: quit date established Second Hand Exposure: Yes Smoking risk assessment performed?: Yes Alcohol Intake: current Alcohol Intake frequency: a few times a week Alcohol type: beer Drug use: Never Substance use type: does not use Counseling given: No Caregiver/Support person: Yes Household members: spouse Housing: house Communication Needs: None Do you need help understanding health information?: Rarely Pets and animals: No Sexually active: Yes Do you think of yourself as: straight/heterosexual Current gender identity: male What is your relationship status?: How often do you talk on the phone with friends or family?: three or more times per week How often do you get together with friends or relatives?: three or more times per week How often do you attend denominational or orthodoxy services?: decline to answer Do you belong to any clubs or organized social groups?: no Panel score (0-1 are the most socially isolated patients): 2 What type of physical activity do you participate in: other Details: PT Duration: 60-90 minutes/day Frequency: daily Harmony/Yazdanism: Scientologist Special harmony needs: No Seatbelt use: always Helmet use: Yes Helmet use: always Drive intox or ride w/intox ambulance driver paramedic: No Do you feel safe at home: Yes Do you feel safe in your relationship?: Yes Additional Social history: 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 Lives with Debora, no pets
[2024-12-27] MEDS: VANCOMYCIN/WATER (PEG) 1.5 GM/300 ML BAG IVPB (08:39)
[2024-12-27] MEDS: Aspirin E.C. 81 MG TABEC PO (08:40)
[2024-12-27] MEDS: Pantoprazole 40 MG VIAL IVP (08:40)
[2024-12-27] MEDS: Tamsulosin 0.4 MG CAPCR PO (08:40)
[2024-12-27] MEDS: Finasteride 5 MG TAB PO (08:40)
--- NOTE | 2024-12-27 09:31 | W.PM.PROGNOT ---
Date of Service Date of service: 12/27/24 Time of Service: 09:32 Assessment and Plan Assessment and plan (1) Septic shock: Status: Acute Assessment and plan: Septic shock on admission with elevated HR, RR, temperature, and hypotension despite 30ml/kg fluids. Source is pneumonia Started on norepinephrine drip, off early this morning On cefepime and vancomycin, continue with renal dosing. He has stabilized, get MRSA swab and stop vanco if this negative and blood cultures remain negative blood cultures pending. Urine not infected. Viral swabs negative Has not continued diarrhea, cancel c diff testing He is at high risk of adrenal insufficiency with chronic prednisone and recent taper, given stress dose steroids with cortisol pending POCUS c/w normal LV function, no other clear cardiac cause for shock. (2) Multifocal pneumonia: Status: Acute Assessment and plan: On CXR, on CT disease is most notable in that superior left lower lobe. Abx as above. (3) Autoimmune necrotizing myopathy: Status: Acute Assessment and plan: Recent taper of medications, but he does not seem to have relapse of his myositis symptoms. CPK is up but mildly so He is on steroids, continue off cellcept Follow CPK 12/28 (4) Benign prostatic hyperplasia: Status: Acute Assessment and plan: With elevated PSA but negative biopsies. On finasteride and tamsulosin, will continue to avoid retention. He was obstructed so arriaga placed. With his history he may need to go home with this and try to remove as outpatient. (5) Acute respiratory failure with hypoxia: Status: Acute Assessment and plan: Secondary to pneumonia with septic shock. Stable, down from 4 to 3 liters O2 via NC, plan to titrate further (6) Chronic steroid use: Status: Acute Assessment and plan: As above on hydrocortisone for possible adrenal insuffiency. Cortisone still pending. (7) Acute kidney injury: Status: Acute Assessment and plan: Assocated with sepsis. He was also obstructed. Mild CPK elevation not likely high enough to contribute. Much improved today Continue strict I/Os. (8) Hypomagnesemia: Status: Acute Assessment and plan: normalized (9) Lactic acidosis: Status: Acute Assessment and plan: a/w sepsis, improving. Continue IV/po hydration and treating infection (10) DVT prophylaxis: Status: Acute Assessment and plan: High risk with h/o DVT, enoxaparin Subjective Subjective Patient reports: denies diarrhea, nausea, vomiting or fever Interval history since last seen: 24hr: Arriaga placed for urinary retention 999ml on bladder scan post-void Norepineprhrine titrated off around 5am He is feeling better. He would like to eat real food. He is no longer getting fever/chills. Exam Narrative Exam Narrative: GEN: Alert and oriented, still dyspneic but not in distress at rest. LUNGS: Tachypneic, no wheeze, rales on left. CV: RRR with no murmurs, gallops, or rubs. ABD: active bowel sounds, soft, nontender and nondistended. No masses. EXT: no cyanosis, clubbing, or edema. warm Objective Last Vital Signs Temp 36.9 C 12/27/24 02:43 Pulse 81 12/27/24 06:01 Resp 25 H 12/27/24 06:01 BP 98/69 L 12/27/24 06:01 Pulse Ox 92 12/27/24 06:01 Laboratory Results - last 24 hr 12/26/24 12/26/24 12/26/24 09:58 10:10 10:17 WBC 24.18 H RBC 5.11 Hgb 15.3 Hct 46.0 MCV 90 MCH 29.9 MCHC 33.3 RDW 13.4 Plt Count 151 MPV 9.4 Immature Gran % 0.0 Neutrophils % 82.0 Band Neutrophils % 12 Lymphocytes % 1.0 Atypical Lymphs % 1 Monocytes % 2.0 Eosinophils % 0.0 Basophils % 0.0 Metamyelocytes % 2 Nucleated RBC % 0.0 Absolute Neutrophils 22.73 H Absolute Lymphocytes 0.48 L Absolute Monocytes 0.48 Absolute Eosinophils 0.00 Absolute Basophils 0.00 RBC Morphology Normal VBG pH 7.37 VBG pCO2 34 L VBG pO2 39 VBG HCO3 20 L VBG Total CO2 17 L VBG O2 Saturation 75 VBG Base Excess -6 L VBG Lactate 7.8 H* Sodium Cancelled Potassium Cancelled Chloride Cancelled Carbon Dioxide Cancelled Anion Gap Cancelled BUN Cancelled Creatinine Cancelled Est GFR (CKD-EPI 2020) Cancelled Glucose Cancelled Calcium Cancelled Magnesium Cancelled Total Bilirubin Cancelled AST Cancelled ALT Cancelled Alkaline Phosphatase Cancelled Creatine Kinase Troponin I 8 NT-Pro-B Natriuret Pep 4421 H Total Protein Cancelled Albumin Cancelled Procalcitonin 58.42 Cortisol Urine Color Urine Clarity Urine pH Ur Specific [place] Urine Protein Urine Ketones Urine Blood Urine Nitrite Urine Bilirubin Urine Urobilinogen Ur Leukocyte Esterase Urine RBC Urine WBC Ur Epithelial Cells Urine Crystals Urine Bacteria Urine Mucus Ur Culture Indicated? Urine Glucose Random Vancomycin COVID-19 Source Nasopharynx SARS-CoV-2 (PCR) Negative Influenza Type A (PCR) Negative Influenza Type B (PCR) Negative RSV (PCR) Negative Add-On Test Request 12/26/24 12/26/24 12/26/24 11:42 12:26 14:02 WBC RBC Hgb Hct MCV MCH MCHC RDW Plt Count MPV Immature Gran % Neutrophils % Band Neutrophils % Lymphocytes % Atypical Lymphs % Monocytes % Eosinophils % Basophils % Metamyelocytes % Nucleated RBC % Absolute Neutrophils Absolute Lymphocytes Absolute Monocytes Absolute Eosinophils Absolute Basophils RBC Morphology VBG pH VBG pCO2 VBG pO2 VBG HCO3 VBG Total CO2 VBG O2 Saturation VBG Base Excess VBG Lactate 7.2 H* 7.5 H* Sodium 139 Potassium 4.0 Chloride 104 Carbon Dioxide 15.4 L Anion Gap 19.6 H BUN 40 H Creatinine 2.8 H Est GFR (CKD-EPI 2020) 23.68 Glucose 130 H Calcium 8.7 Magnesium 1.3 L Total Bilirubin 1.6 H AST 35 ALT 24 Alkaline Phosphatase 49 Creatine Kinase 393 H Troponin I 9 NT-Pro-B Natriuret Pep Total Protein 5.9 L Albumin 2.7 L Procalcitonin Cortisol >120.0 Urine Color Urine Clarity Urine pH Ur Specific [place] Urine Protein Urine Ketones Urine Blood Urine Nitrite Urine Bilirubin Urine Urobilinogen Ur Leukocyte Esterase Urine RBC Urine WBC Ur Epithelial Cells Urine Crystals Urine Bacteria Urine Mucus Ur Culture Indicated? Urine Glucose Random Vancomycin COVID-19 Source SARS-CoV-2 (PCR) Influenza Type A (PCR) Influenza Type B (PCR) RSV (PCR) Add-On Test Request DONE 12/26/24 12/27/24 17:45 05:42 WBC 25.99 H* RBC 4.31 L Hgb 13.0 L D Hct 38.0 L MCV 88 MCH 30.2 MCHC 34.2 RDW 13.5 Plt Count 133 MPV 9.2 Immature Gran % See Differential Neutrophils % 82.0 Band Neutrophils % 5 Lymphocytes % 1.0 Atypical Lymphs % Monocytes % 6.0 Eosinophils % 1.0 Basophils % 1.0 Metamyelocytes % 4 Nucleated RBC % 0.0 Absolute Neutrophils 22.61 H Absolute Lymphocytes 0.26 L Absolute Monocytes 1.56 H Absolute Eosinophils 0.26 Absolute Basophils 0.26 H RBC Morphology Normal VBG pH VBG pCO2 VBG pO2 VBG HCO3 VBG Total CO2 VBG O2 Saturation VBG Base Excess VBG Lactate 4.8 H* Sodium 140 Potassium 3.7 Chloride 108 H Carbon Dioxide 21.8 Anion Gap 10.2 BUN 32 H Creatinine 1.5 H D Est GFR (CKD-EPI 2020) 50.08 Glucose 196 H Calcium 9.3 Magnesium 2.2 Total Bilirubin 0.7 AST 59 H ALT 40 Alkaline Phosphatase 70 Creatine Kinase Troponin I NT-Pro-B Natriuret Pep Total Protein 6.1 L Albumin 2.5 L Procalcitonin Cortisol Urine Color Yellow Urine Clarity Clear Urine pH 5.0 Ur Specific [place] 1.020 Urine Protein 30 H Urine Ketones 15 H Urine Blood Trace-intact H Urine Nitrite Negative Urine Bilirubin Negative Urine Urobilinogen 0.2 Ur Leukocyte Esterase Negative Urine RBC 3-5 H Urine WBC 3-5 Ur Epithelial Cells Rare Urine Crystals Negative Urine Bacteria Moderate Urine Mucus Trace Ur Culture Indicated? No Urine Glucose Negative Random Vancomycin 7.6 COVID-19 Source SARS-CoV-2 (PCR) Influenza Type A (PCR) Influenza Type B (PCR) RSV (PCR) Add-On Test Request PAWSS Have you Been Recently Intoxicated or Drunk Within the Last 30 days?: No Have you Ever Experienced Previous Episodes of Alcohol Withdrawal?: No Have you ever Experienced Withdrawal Seizures?: No Have you ever Experienced Delirium Tremens(DT)s?: No Have you ever undergone Alcohol Rehabilitation Treatment (i.e, inpt ot outpatient treatment programs)?: No Have you ever Experienced Blackouts?: No Have you ever Combined Alcohol with other Downers within the last 90 days?: No Have you ever Combined Alcohol with any other Substance of Abuse during the last 90 days?: No Positive Blood Alcohol level on Presentation? [PCS.BAL]: No Evidence of Increased Autonomic Activity (i.e. HR>120, tremor, sweating, agitation, nausea)?: No Result: 0 Time Spent with Patient Time Spent with Patient: >50 minutes Time was spent: preparing to see the patient(eg.review tests), obtaining and/or reviewing separately [facility] hiistory, ordering medications,tests, procedures, referring, communicating with other health healthcare interpreter, indepentently interpreting results, counseling the patient and care coordination
[2024-12-27] MEDS: CEFEPIME 2 GM in Normal Saline 100 ML IVPB ×2 (10:21→21:36)
[2024-12-27] MEDS: Hydrocortisone SOD SUC. 100 MG VIAL 50 MG IVP ×2 (14:11→21:36)
[2024-12-27] MEDS: traMADol 50 MG TAB PO (17:13)
[2024-12-27] MEDS: Enoxaparin 40 MG/0.4 ML SYR SC (17:13)
[2024-12-27] MEDS: Acetaminophen 325 MG TAB PO (21:36)
[2024-12-28] VITALS (39 sets, daily range): BP systolic 88–126; BP diastolic 61–84; PULSE 60–78; RESP 15–28; TEMP 36.3–36.9; O2SAT 90–96
[2024-12-28] MEDS: Normal Saline Flush 10 ML SYR IVP ×4 (05:39→22:12)
[2024-12-28] MEDS: Hydrocortisone SOD SUC. 100 MG VIAL 50 MG IVP (05:40)
[2024-12-28 05:45] LABS: Abs Immature Grans 0.11 10^3/uL (0.0-0.06); Absolute Basophil Count 0.08 10^3/uL (0.0-0.2); Absolute Eosinophil Count 0.22 10^3/uL (0.0-0.7); Absolute Lymphocyte Count 0.36 10^3/uL (1.2-3.4); Absolute Monocyte Count 0.92 10^3/uL (0.1-0.8); Absolute Neutrophil Count 18.39 10^3/uL (1.2-6.7); Basophils % 0.4 %; Eosinophils % 1.1 %; HCT 34.2 % (40.0-50.0); HGB 11.9 g/dL (13.5-17.5); Immature Grans % 0.5 %; Lymphocytes % 1.8 %; MCH 30.4 pg (27.0-33.0); MCHC 34.8 % (32.0-36.0); MCV 87 fL (80-95); MPV 10.4 fL (8.0-11.0); Monocytes % 4.6 %; Neutrophils % 91.6 %; Platelet Count 126 10^3/uL (130-400); RBC 3.92 10^6/uL (4.36-5.78); RDW 13.7 % (11.8-14.1); RDW-SD 43.7 fL; WBC 20.08 10^3/uL (4.4-10.8)
[2024-12-28 06:04] LABS: Chloride 108 mmol/L (98-107); Sodium 140 mmol/L (136-145)
[2024-12-28 06:08] LABS: ALT 52 U/L (16-63); AST 53 U/L (15-37); Albumin 2.3 g/dL (3.4-5.0); Alkaline Phosphatase 84 U/L (46-116); Anion Gap 6.9 mmol/L (3-11); BUN 35 mg/dL (7-18); Bilirubin, Total 0.4 mg/dL (0.2-1.0); CO2 25.1 mmol/L (21.0-32.0); CREATININE 1.1 mg/dL (0.70-1.30); Calcium 9.6 mg/dL (8.5-10.1); Estimated GFR 72.67 (mL/min/1.73m2); Glucose 258 mg/dL (74-106); Potassium 3.9 mmol/L (3.5-5.1)
[2024-12-28 06:11] LABS: Creatine Kinase 155 U/L (39-308)
[2024-12-28 06:34] LABS: Vancomycin, Random 5.8 ug/mL
[2024-12-28] MEDS: Tamsulosin 0.4 MG CAPCR PO (08:14)
[2024-12-28] MEDS: Finasteride 5 MG TAB PO (08:14)
[2024-12-28] MEDS: Aspirin E.C. 81 MG TABEC PO (08:14)
[2024-12-28] MEDS: VANCOMYCIN/WATER (PEG) 1.5 GM/300 ML BAG IVPB (08:15)
[2024-12-28] MEDS: Pantoprazole 40 MG VIAL IVP (08:15)
--- NOTE | 2024-12-28 08:36 | CMPROGNOTE_ITS ---
Date of service: 12/28/24 Time of Service: 12:48 Care Management Progress Note Progress Note Text Progress Note Text: Jeison was awake and visiting with his when CM met with him; he is pleasant and easy to engage in conversation. He walked with PT today and is planning to down grade to MS level care at some point today. Overall, Jeison reports that he feels much better and is eager to get back home. Jeison is active and independent at baseline and is planning to have back surgery next month. PT recommends New [facility] PT, CM to clarify home bound status. CM will follow. Discharge Potential Discharge Needs: PCP F/U Appt Anticipated Barriers to Discharge: None Identified Patient/Family Education Needs: Review discharge instructions, discuss Ask Me Three Transportation: Private vehicle Plan: Outpt pt vs. [facility] PT, CM will clarify with PT. Jeison continues to be closely monitored and treated in the ICU and is expected to transition to MS status later today. Anticipate, he will return home via private vehicle when medically ready for discharge. He will follow up with his outpatient providers and plan of care as directed. CM continues to follow. Social Determinants of Health Screening Social Determinants of health last assessed in clinic: 12/28/24 Will the Patient Participate in the Screening?: Yes Do you worry about having a steady place to live?: no Problems where you live: no known problems In the past 12 months, have you had to go without electric, gas, oil or water in your home?: no 1. Within the past 12 months, we worried whether our food would run out before we got money to buy more.: Never true 2. Within the past 12 months, the food we bought just didn't last and we didn't have money to get more.: Never true Has lack of transportation kept you from medical appointments or from doing things needed for daily living?: no Has anyone in your life made you feel unsafe or unsupported?: no How hard is it for you to pay for the very basics like food, housing, medical care, and heating? Would you say it is:: Not hard at all Do you want help finding or keeping work or a job?: I do not need or want help If for any reason you need help with day-to-day activities such as bathing, preparing meals, shopping, managing finances, etc., do you get the help you need?: I don?t need any help How often do you feel lonely or isolated from those around you?: Never Do you speak a language other than Croatian at home?: No Does the patient want assistance with any of the above?: No
--- NOTE | 2024-12-28 09:51 | PGE_ITS ---
Date of Service Date of service: 12/28/24 Time of Service: 10:04 Assessment and Plan Assessment and plan (1) Septic shock: Status: Acute Assessment and plan: Septic shock on admission with elevated HR, RR, temperature, and hypotension despite 30ml/kg fluids. Source is pneumonia Started on norepinephrine drip, off 4/15 AM Urine not infected. Viral swabs negative On cefepime and vancomycin, He has stabilized, WBC down, cultures NGTD, get MRSA swab and stop vanco He is at high risk of adrenal insufficiency with chronic prednisone and recent taper, given stress dose steroids. Cortisol abnormally high, looks like he had gotten high dose IV methyprednisolone before lab was drawn so impossible to interpret. Transition to a course of prednisone. POCUS c/w normal LV function, no other clear cardiac cause for shock. PT to mobilize today, has baseline spinal stenosis. Can downgrade to floor status (2) Multifocal pneumonia: Status: Acute Assessment and plan: On CXR, on CT disease is most notable in that superior left lower lobe. Abx as above. (3) Autoimmune necrotizing myopathy: Status: Acute Assessment and plan: Recent taper of medications, but he does not seem to have relapse of his myositis symptoms. CPK up slightly on admission He is on steroids, continue off cellcept CPK normalized 12/28 (4) Benign prostatic hyperplasia: Status: Acute Assessment and plan: With elevated PSA but negative biopsies. On finasteride and tamsulosin, will continue to avoid retention. He just resumed finasteride a month ago so it isn't at full effect. He had missed tamsulosin two days when sick before admission. He was obstructed so arriaga placed. With his history he may need to go home with this and try to remove as outpatient. (5) Acute respiratory failure with hypoxia: Status: Acute Assessment and plan: Secondary to pneumonia with septic shock, hypoxia resolved as of 12/28 AM (6) Chronic steroid use: Status: Acute Assessment and plan: As above was on hydrocortisone IV, now oral prednisone burst. Cortisol level not interpretable. (7) Acute kidney injury: Status: Acute Assessment and plan: Assocated with sepsis. He was also obstructed. Mild CPK elevation on admission not likely high enough to contribute. Much improved, normalized to Cr 1.1 as of 12/28 (8) Abnormal liver enzymes: Status: Acute Assessment and plan: This looks like a chronic rather than acute problem reviewing the EHR. His patter of AST>ALT, low normal platelets, and low albumin raise the concern for advanced fibrosis/compensated cirrhosis. No cirrhosis noted on CT in 2022 or reported on chest CT this admission, will ask raditiology to comment of liver/spleen size/contour. He would benefit from fibroscan either way as an outpatient, liver precautions. (9) Obesity, class 1: Assessment and plan: Has been working on weight loss with PCP (10) DVT prophylaxis: Status: Acute Assessment and plan: High risk with h/o DVT, enoxaparin Objective Last Vital Signs Temp 36.6 C 12/28/24 08:30 Pulse 68 12/28/24 09:00 Resp 24 12/28/24 09:00 BP 103/71 12/28/24 09:00 Pulse Ox 92 12/28/24 09:00 Laboratory Results - last 24 hr 12/28/24 05:30 WBC 20.08 H RBC 3.92 L Hgb 11.9 L Hct 34.2 L MCV 87 MCH 30.4 MCHC 34.8 RDW 13.7 Plt Count 126 L MPV 10.4 Immature Gran % 0.5 Neutrophils % 91.6 Lymphocytes % 1.8 Monocytes % 4.6 Eosinophils % 1.1 Basophils % 0.4 Nucleated RBC % 0.0 Absolute Neutrophils 18.39 H Absolute Lymphocytes 0.36 L Absolute Monocytes 0.92 H Absolute Eosinophils 0.22 Absolute Basophils 0.08 Sodium 140 Potassium 3.9 Chloride 108 H Carbon Dioxide 25.1 Anion Gap 6.9 BUN 35 H Creatinine 1.1 Est GFR (CKD-EPI 2020) 72.67 Glucose 258 H Calcium 9.6 Total Bilirubin 0.4 AST 53 H ALT 52 Alkaline Phosphatase 84 Creatine Kinase 155 Total Protein 6.0 L Albumin 2.3 L Random Vancomycin 5.8 PAWSS Have you Been Recently Intoxicated or Drunk Within the Last 30 days?: No Have you Ever Experienced Previous Episodes of Alcohol Withdrawal?: No Have you ever Experienced Withdrawal Seizures?: No Have you ever Experienced Delirium Tremens(DT)s?: No Have you ever undergone Alcohol Rehabilitation Treatment (i.e, inpt ot outpatient treatment programs)?: No Have you ever Experienced Blackouts?: No Have you ever Combined Alcohol with other Downers within the last 90 days?: No Have you ever Combined Alcohol with any other Substance of Abuse during the last 90 days?: No Positive Blood Alcohol level on Presentation? [PCS.BAL]: No Evidence of Increased Autonomic Activity (i.e. HR>120, tremor, sweating, agitati on, nausea)?: No Result: 0 Time Spent with Patient Time Spent with Patient: >50 minutes Time was spent: preparing to see the patient(eg.review tests), obtaining and/or reviewing separately otained hiistory, ordering medications,tests, procedures, referring, communicating with other health manager primary care, indepentently interpreting results, counseling the patient and care coordination
[2024-12-28 10:37] LABS: MRSA PCR Negative (Negative)
[2024-12-28] MEDS: CEFEPIME 2 GM in Normal Saline 100 ML IVPB ×2 (10:39→18:14)
[2024-12-28] MEDS: predniSONE 20 MG TAB 40 MG PO (10:40)
--- NOTE | 2024-12-28 11:15 | IN_ITS ---
PT Notes Visit Reasons: septic shock,multifocal pneumonia Physical Therapy Inpatient Initial Evaluation Date: 12/28/2024 Referring Doctor: Bashir Conti MD PT Orders: PT CONSULT: Fall safety assessment. Safety Consult for D/C Precautions: Fall. Standard. Activity as tolerated. Patient Profile/Admitting Diagnosis: Jeison is a 69-year-old male who presented to the ED with chief complaints of profound general weakness, fever, vomiting, and diarrhea. He is admitted for management of septic shock, multifocal pneumonia, BPH, acute respiratory failure with hypoxia, acute kidney injury hypomagnesemia and lactic acidosis. PMHX: All Active Problems (Updated 12/26/24 @ 15:17 by Bashir Conti) Lactic acidosis (Acute) Hypomagnesemia (Acute) Acute kidney injury (Acute) DVT prophylaxis (Acute) Septic shock (Acute) Bilateral thumb pain (Acute) Low back pain (Acute) Weight loss (Acute) Abdominal pain (Acute) Primary osteoarthritis of left hip (Acute) Left groin pain (Acute) History of total right hip replacement (Acute 03/04/22) Preventative health care (Acute) Pain of right hip (Acute) DVT (deep venous thrombosis) (Chronic) Herpes zoster (Acute) Edema (Acute) Sepsis (Acute) Multifocal pneumonia (Acute) Steroid-induced hyperglycemia (Acute) Acute respiratory failure with hypoxia (Acute) Chronic steroid use (Acute) Autoimmune necrotizing myopathy (Acute ~01/30/20) [facility] Spinal stenosis of lumbar region with neurogenic claudication (Acute ~01/30/20) [facility] Elevated PSA (Acute) Well adult (Acute) Pain of left calf (Acute) Necrotizing myopathy (Acute) 05/11/19 [facility] Phlebitis after infusion (Acute) Myositis (Acute ~11/25/18) 11/25/18 [facility] Benign prostatic hyperplasia (Acute 12/23/16) with elevated PSA TRUS biopsies negative X 2 Prediabetes (Acute 12/23/16) Venous insufficiency of left leg (Acute 12/23/16) Surgical History History of tonsillectomy History of colonoscopy Status post right inguinal hernia repair Social History/Home Situation: Lives with in a private home with 3 steps to enter with rails on B sides. Independent with all aspects of ADLs prior to admission. Equipment Owned/DME: FWW, SPC Subjective: Feels much better. present in room and stated that patient was completely independent with everything before this admission. Minimally short of breath after standing beside sink about 5 minutes with Easton Higginbotham. Objective: General Observation: Standing by the sink holding onto FWW while EASTON Higginbotham was doing dressing. Telemetry monitoring in place. Mental Status: Alert and oriented as to person, place, time, and purpose. Able to pay attention, focus, and respond appropriately. Pain: None reported Vital Signs: Closely monitored via tele ROM: Right Upper Extremity: Shoulder Flexion WFL. Shoulder abduction WFL. Elbow flexion WFL. Wrist flexion WFL. Functional opening and closing of hand WFL. Left Upper Extremity: Shoulder Flexion WFL. Shoulder abduction WFL. Elbow flexion WFL. Wrist flexion WFL. Functional opening and closing of hand WFL. Right Lower Extremity: Hip flexion WFL. Hip abduction WFL. Knee flexion WFL. Ankle dorsiflexion WFL. Ankle plantarflexion WFL. Left Lower Extremity: Hip flexion WFL. Hip abduction WFL. Knee flexion WFL. Ankle dorsiflexion WFL. Ankle plantarflexion WFL. Strength: Right Upper Extremity: Shoulder flexors 4/5. Shoulder abductors 4/5. Elbow flexors 4/5. Elbow extensors 4/5. Parking Lot Chauffeur strong. Left Upper Extremity: Shoulder flexors 4/5. Shoulder abductors 4/5. Elbow flexors 4/5. Elbow extensors 4/5. Parking Lot Chauffeur strong. Right Lower Extremity: Hip flexors 4/5. Hip abductors 4/5. Knee flexors 5/5. Knee extensors 5/5. Ankle dorsiflexors 4/5. Ankle plantarflexors /55. Left Lower Extremity: Hip flexors 4/5. Hip abductors 4/5. Knee flexors 5/5. Knee extensors 5/5. Ankle dorsiflexors 4/5. Ankle plantarflexors /55. Bed Mobility/Transfers: Minimal cueing provided for use of B hands as needed for support, movement sequence, AD management, and posture to reduce fall risk and minimize pain report Rolling independent Supine to sit independent Sit to supine independent Sit to stand supervision with FWW Stand to sit supervision with FWW Bed to reclining chair supervision with FWW Reclining chair to bed supervision with FWW Gait: Facilitated safe and correct performance of level surface ambulation covering a distance of 400 feet with standby assist with reciprocal using front wheeled walker swing through heel toe gait pattern with minimal verbal cueing provided for self pacing, AD management, and posture without symptoms of chest pain, headache, and lightheadedness. Oxygen saturation stayed above 90% on RA throu ghout the walk. Balance: Static Sitting: Normal Dynamic Sitting: Normal Static Standing: Fair Dynamic Standing: Fair Special Tests: Mobility Limitations Standardized Measure [facility] AM-PAC 6 clicks Basic Mobility Inpatient Short Form: Raw Score: 22 CMS Score: 21% deficit Informed Consent/Education: Patient was instructed in purpose of PT consult and plan of care. Agreeable to proceed with established PT POC to achieve personal goals. Assessment: Patient presents with clinical signs and symptoms consistent with current/admitting diagnoses that have resulted to mobility limitations, gait instability, generalized weakness, and overall ADL decline as demonstrated by the following impairment level findings: 1. Decreased strength to B UE/LE major muscle groups 2. Impaired sitting/standing balance 3. Impaired activity tolerance 5. Minimal shortness of breath Impairments are contributing to the following functional limitations: 1. Decline in bed mobility skills 2. Decline in transfer skills 3. Difficulty with ambulation without assistive device and physical assistance 4. Increased completion time for mobility ADL performance 5. Increased risk for falls 6. Difficulty with managing steps alone safely Patient is assessed as a complexity based on the following: History: 69-year-old female with past medical history as indicated above Examination: Demonstrable impairment in strength, balance, and mobility level with underlying impairments and functional limitations as exhibited above as well as deficit score of % utilizing the [facility] Mobility Inpatient Short Form Presentation: Evolving Decision Makin moderate complexity Goals: Goals X1 week 1. Supine-Sit independent 2. Sit-Supine independent 3. Sit-Stand independent 4. Stand-Sit independent with FWW 5. Bed-Chair independent with FWW 6. Chair-Bed independent with FWW 7. Independent gait on level surface with use of FWW for at least 300 feet witho ut report of pain nor dyspnea 8. Independent stair negotiation while holding onto B rails for at least 12 steps without report of pain nor dyspnea 9. Independent with home exercise program 10. Good static and dynamic standing balance/tolerance Plan of Care/Treatment Plan: 1-2x/day, 7 days/week x 1 week. Plan of care has been reviewed with the CHIEF I DISPATCHER providing the service under Physical Therapy direction. Initiate Physical Therapy intervention for pain management as needed, strengthening, bed mobility, transfers, gait, stairs, balance training, and use of assistive device. DISCHARGE RECOMMENDATIONS: [] Home with no services [] [X] Home with services. Patient will benefit from home health PT services in order to progress mobility level using least restrictive assistive ambulatory device, assess home safety, identify additional equipment needs, and establish a functional maintenance program that will increase ability of patient to remain at home. [] Home with outpatient PT [] [] SNF for continued rehabilitation [] [] [facility] [] [] SNF versus LTC based on ability to participate and progress [] TREATMENT CODE/TIME: 40808 x 20 minutes for 1 unit x 20 minutes, 73871 x 15 minutes (11:15-11:50). Thank you for the opportunity to participate in the care of this patient. Lia Kahn PT, DPT, CLT [facility] [place], [place]
--- NOTE | 2024-12-28 16:07 | W.PC.ACHO ---
Registration Status: Primary Language: Preferred Language: ED Information & Data Chief Complaint RespSymp 12/26/24 10:20 Triage Note SOB, vomiting, diarrhea, 12/26/24 09:52 coughing- symptoms started yesterday- 2 IBU this morning Medical / Surgical History (Last Updated 12/28/24 @ 09:52 by Bashir Conti) Obesity, class 1 (Last Reviewed 12/26/24 @ 14:58 by Bashir Conti) History of tonsillectomy History of colonoscopy Status post right inguinal hernia repair Most Recent Vital Signs Temperature 36.8 C 12/28/24 13:19 Temperature Source Temporal Artery Scan 12/28/24 13:19 Pulse 70 12/28/24 15:01 Pulse 69 12/28/24 15:01 Respiratory Rate 23 12/28/24 15:01 Respiratory Effort Short of Breath, Labored 12/26/24 16:20 Respiratory Depth Shallow 12/26/24 16:20 Respiratory Pattern Tachypnea 12/26/24 16:20 Blood Pressure 116/82 12/28/24 15:00 Blood Pressure Mean 93 12/28/24 15:00 Blood Pressure Position Sitting 12/26/24 09:57 Pulse Oximetry 93 12/28/24 15:01 Oxygen Delivery Method Room Air 12/28/24 08:18 Oxygen Flow Rate 0 12/28/24 08:18 Pain Level 0 12/28/24 08:30 Allergies cat dander Allergy (Verified 12/26/24 11:07) Hives pollen extracts Allergy (Verified 12/26/24 11:07) Itching Precautions Isolation Standard precaution 12/26/24 09:58 Active Medications Generic Name Dose Route Start Last Admin Trade Name Freq PRN Reason Stop Dose Admin Acetaminophen 0 mg 12/26/24 14:20 12/27/24 21:36 Acetaminophen 325 Mg Tab PO 650 mg Q4H PRN PRN Administration Aspirin 81 mg 12/27/24 08:30 12/28/24 08:14 Aspirin E.C. 81 Mg Tabec PO 81 mg DAILY KORINA Administration Enoxaparin Sodium 40 mg 12/26/24 18:00 12/27/24 17:13 Enoxaparin 40 Mg/0.4 Ml Syr SC 40 mg Q24H KORINA Administration Finasteride 5 mg 12/27/24 08:30 12/28/24 08:14 Finasteride 5 Mg Tab PO 5 mg DAILY KORINA Administration Prednisone 40 mg 12/28/24 10:00 12/28/24 10:40 Prednisone 20 Mg Tab PO 40 mg DAILY KORINA Administration Sodium Chloride 0 ml 12/26/24 09:58 12/28/24 05:39 Normal Saline Flush 10 Ml Syr IVP 30 ml PRN PRN Administration Sodium Chloride 0 ml 12/26/24 20:00 12/28/24 08:16 Normal Saline Flush 10 Ml Syr IVP 60 ml BID KORINA Administration Tamsulosin HCl 0.4 mg 12/27/24 08:30 12/28/24 08:14 Tamsulosin 0.4 Mg Capcr PO 0.4 mg DAILY KORINA Administration Tramadol HCl 50 mg 12/27/24 16:46 12/27/24 17:13 Tramadol 50 Mg Tab PO 50 mg Q6H PRN PRN Administration IV IV Catheter Type [Right triple lumen IJ Internal Jugular] IV Catheter Type [Right Hand] Saline Lock IV Catheter Type [Right Saline Lock Antecubital] IV Catheter Type [Left Hand] Saline Lock IV Catheter Gauge [Right Hand] 18 IV Catheter Gauge [Right 18 Antecubital] IV Catheter Gauge [Left Hand] 18 Diagnostics 12/28/24 12/28/24 Range/Units 08:50 05:30 WBC 20.08 H (4.4-10.8) 10^3/uL RBC 3.92 L (4.36-5.78) 10^6/uL Hgb 11.9 L (13.5-17.5) g/dL Hct 34.2 L (40.0-50.0) % MCV 87 (80-95) fL MCH 30.4 (27.0-33.0) pg MCHC 34.8 (32.0-36.0) % RDW 13.7 (11.8-14.1) % Plt Count 126 L (130-400) 10^3/uL MPV 10.4 (8.0-11.0) fL Immature Gran % 0.5 % Neutrophils % 91.6 % Lymphocytes % 1.8 % Monocytes % 4.6 % Eosinophils % 1.1 % Basophils % 0.4 % Nucleated RBC % 0.0 (0.0-0.3) % Absolute Neutrophils 18.39 H (1.2-6.7) 10^3/uL Absolute Lymphocytes 0.36 L (1.2-3.4) 10^3/uL Absolute Monocytes 0.92 H (0.1-0.8) 10^3/uL Absolute Eosinophils 0.22 (0.0-0.7) 10^3/uL Absolute Basophils 0.08 (0.0-0.2) 10^3/uL Sodium 140 (136-145) mmol/L Potassium 3.9 (3.5-5.1) mmol/L Chloride 108 H (98-107) mmol/L Carbon Dioxide 25.1 (21.0-32.0) mmol/L Anion Gap 6.9 (3-11) mmol/L BUN 35 H (7-18) mg/dL Creatinine 1.1 (0.70-1.30) mg/dL Est GFR (CKD-EPI 2020) 72.67 (mL/min/1.73m2) Glucose 258 H (74-106) mg/dL Calcium 9.6 (8.5-10.1) mg/dL Total Bilirubin 0.4 (0.2-1.0) mg/dL AST 53 H (15-37) U/L ALT 52 (16-63) U/L Alkaline Phosphatase 84 (46-116) U/L Creatine Kinase 155 (39-308) U/L Total Protein 6.0 L (6.4-8.2) g/dL Albumin 2.3 L (3.4-5.0) g/dL Random Vancomycin 5.8 ug/mL MRSA (TEM-PCR) Negative (Negative) 12/26/24 10:45 Blood Culture - Preliminary Blood NO GROWTH 48 HOURS 12/26/24 10:35 Blood Culture - Preliminary Blood NO GROWTH 48 HOURS Intake and Output - 24 Hour Total 12/26/24 09:25 thru 12/28/24 15:59 Intake Total 8442.756 Output Total 5845 Balance 2597.756 Weight 107.6 kg Intake: IV 6963.756 Oral 1479 Output: Urine 5845 Other: Urine Color Yellow Urine Appearance Clear Comment enlarged prostate. Falls Risk Assessment History of Falls No History 12/26/24 16:20 Contributing Factors No Factors 12/26/24 16:20 Ambulatory Aids Independent 12/26/24 16:20 Tubes/Lines W/no contributing factors 12/26/24 16:20 Gait Evaluation W/no contributing factors 12/26/24 16:20 Cognition No cognitive impairment 12/26/24 10:00 Fall Total Score 12/26/24 16:20 Level of Risk Standard/Low Risk 12/26/24 16:20 Problems (Last Updated 12/28/24 @ 09:52 by Bashir Conti) Abnormal liver enzymes (Acute) Lactic acidosis (Acute) Hypomagnesemia (Acute) Acute kidney injury (Acute) DVT prophylaxis (Acute) Septic shock (Acute) Benign prostatic hyperplasia (Acute 12/23/16) Autoimmune necrotizing myopathy (Acute ~01/30/20) Chronic steroid use (Acute) Acute respiratory failure with hypoxia (Acute) Multifocal pneumonia (Acute) v v v v v v v v v Sending and/or Receiving Nurses: Please use comment section below to note any information pertinent to the patient hand-off not included above. Information / Comments: Pt arrived to rm [id number] from rm 221 (ICU) VSS, pt in bed w/ call butt in reach, in room Report received from: DEBRA Mcqueen
[2024-12-28] MEDS: Enoxaparin 40 MG/0.4 ML SYR SC (18:13)
[2024-12-28] MEDS: DOXYCYCLINE 100 MG in Normal Saline 100 ML IVPB (20:24)
[2024-12-29] MEDS: CEFEPIME 2 GM in Normal Saline 100 ML IVPB ×2 (01:45→10:08)
[2024-12-29 03:19] VITALS: BP 119/83; PULSE 58; RESP 17; TEMP 36.8; O2SAT 93
[2024-12-29 06:25] LABS: Abs Immature Grans 0.09 10^3/uL (0.0-0.06); Absolute Basophil Count 0.03 10^3/uL (0.0-0.2); Absolute Lymphocyte Count 0.96 10^3/uL (1.2-3.4); Absolute Monocyte Count 1.04 10^3/uL (0.1-0.8); Absolute Neutrophil Count 13.38 10^3/uL (1.2-6.7); Basophils % 0.2 %; HCT 36.4 % (40.0-50.0); HGB 12.2 g/dL (13.5-17.5); Immature Grans % 0.6 %; Lymphocytes % 6.2 %; MCH 29.5 pg (27.0-33.0); MCHC 33.5 % (32.0-36.0); MCV 88 fL (80-95); MPV 10.1 fL (8.0-11.0); Monocytes % 6.7 %; Neutrophils % 86.3 %; Nucleated RBC 0.1 % (0.0-0.3); Platelet Count 127 10^3/uL (130-400); RBC 4.13 10^6/uL (4.36-5.78); RDW 13.6 % (11.8-14.1); RDW-SD 43.9 fL
[2024-12-29 06:35] LABS: Anion Gap 7.8 mmol/L (3-11); BUN 34 mg/dL (7-18); CO2 25.2 mmol/L (21.0-32.0); Calcium 9.4 mg/dL (8.5-10.1); Chloride 108 mmol/L (98-107); Estimated GFR 81.47 (mL/min/1.73m2); Glucose 147 mg/dL (74-106); Potassium 3.7 mmol/L (3.5-5.1); Sodium 141 mmol/L (136-145)
[2024-12-29 06:40] LABS: Hemoglobin A1C 6.4 % (<5.7)
[2024-12-29 07:10] VITALS: BP 116/82; PULSE 58; RESP 24; TEMP 36.6; O2SAT 95
[2024-12-29] MEDS: Pantoprazole 40 MG TABCR PO (07:41)
[2024-12-29] MEDS: DOXYCYCLINE 100 MG in Normal Saline 100 ML IVPB (08:44)
[2024-12-29] MEDS: Normal Saline Flush 10 ML SYR IVP (08:45)
[2024-12-29] MEDS: Aspirin E.C. 81 MG TABEC PO (08:50)
[2024-12-29] MEDS: Finasteride 5 MG TAB PO (08:51)
[2024-12-29] MEDS: predniSONE 20 MG TAB 40 MG PO (08:51)
[2024-12-29] MEDS: Tamsulosin 0.4 MG CAPCR PO (08:51)
--- NOTE | 2024-12-29 10:26 | PDOC.CMPRO ---
Date of service: 12/29/24 Time of Service: 10:26 Social Determinants of Health Screening Social Determinants of health last assessed in clinic: 12/28/24 Will the Patient Participate in the Screening?: Yes Do you worry about having a steady place to live?: no Problems where you live: no known problems In the past 12 months, have you had to go without electric, gas, oil or water in your home?: no Has lack of transportation kept you from medical appointments or from doing things needed for daily living?: no Has anyone in your life made you feel unsafe or unsupported?: no How hard is it for you to pay for the very basics like food, housing, medical care, and heating? Would you say it is:: Not hard at all Do you want help finding or keeping work or a job?: I do not need or want help If for any reason you need help with day-to-day activities such as bathing, preparing meals, shopping, managing finances, etc., do you get the help you need?: I don?t need any help How often do you feel lonely or isolated from those around you?: Never Do you speak a language other than [place] Islander at home?: No Does the patient want assistance with any of the above?: No
--- NOTE | 2024-12-29 10:55 | PTTR_ITS ---
PT Notes Visit Reasons: septic shock,multifocal pneumonia Physical Therapy Inpatient Treatment Note Date: 12/29/2024 Precautions: Fall. Standard. Activity as tolerated. Subjective: Patient and stated patient now at baseline ambulation pattern during this morning's walk without an assistive device. Minimal SOB subsided with rest. Objective: General Observation: Seated on chair. present in room. Mental Status: Alert and oriented as to person, place, time, and purpose. Able to pay attention, focus, and respond appropriately. Pain: None reported Vital Signs: Closely monitored via tele Bed Mobility/Transfers: Minimal cueing provided for use of B hands as needed for support, movement sequence, AD management, and posture to reduce fall risk and minimize pain report Rolling independent Supine to sit independent Sit to supine independent Sit to stand independent with FWW Stand to sit independent with FWW Bed to reclining chair independent with FWW Reclining chair to bed independent with FWW Gait: Facilitated safe and correct performance of level surface ambulation covering a distance of 300 feet + 300 feet with contcat guard assist with reciprocal swing through heel toe gait pattern with minimal verbal cueing provided for self pacing and directions without symptoms of chest pain, headache, and lightheadedness. Oxygen saturation stayed above 92% on RA throughout the walk. Balance: Static Sitting: Normal Dynamic Sitting: Normal Static Standing: Fair Dynamic Standing: Fair Assessment: Was able to walk with just stand by assist half of the way without the walker at baseline gait pattern per patient and . Patient has mild ataxia which has been patient's baseline pattern. No LOB. Mild Sob resoveld with rest. DISCHARGE RECOMMENDATIONS: [] Home with no services [] [] Home with services [] [X] Home with outpatient PT for balance skilling and strengthening. [] SNF for continued rehabilitation [] [] [facility] [] [] SNF versus LTC based on ability to participate and progress [] TREATMENT CODE/TIME: 03150 x 23 minutes for 2 units (10:55-11:18).
[2024-12-29 10:57] VITALS: BP 104/58; PULSE 55; RESP 15; TEMP 36.8; O2SAT 94
--- NOTE | 2024-12-29 11:02 | NUR.NOTE ---
patient AxOx4 this shift, denies pain, uses FWW with SBA for ambulation, arriaga d/c'd this AM, pt is DTV by 184, denies SOB/RAYGOZA today, ambulated around unit x1 this AM with RN. Sats stable on room air, minimal coarse crackles to RML and LLL decreased, non productive infrequent cough, no BM since 12/26 but +flatus, abd s/nt/nd, tolerating diet. D/c to home with outpt PT when ready. Nursing Note:
[2024-12-29 11:20] VITALS: BP 118/78; PULSE 56; RESP 20; TEMP 36.6; O2SAT 96
--- NOTE | 2024-12-29 12:47 | DSE_ITS ---
Date of service: 12/29/24 Time of Service: 12:47 DS: Diagnosis Discharge Diagnosis (1) Septic shock: Status: Acute (2) Multifocal pneumonia: Status: Acute (3) Autoimmune necrotizing myopathy: Status: Acute (4) Benign prostatic hyperplasia: Status: Acute (5) Acute respiratory failure with hypoxia: Status: Acute (6) Chronic steroid use: Status: Acute (7) Acute kidney injury: Status: Acute (8) Abnormal liver enzymes: Status: Acute (9) Obesity, class 1: (10) DVT prophylaxis: Status: Acute Discharge Plan Disposition Patient Disposition: Home W/Home Health Services Condition: Stable Discharge Details Reason For Visit: septic shock,multifocal pneumonia Admit Date/Time: 12/26/24 14:20 Admit Provider: Bashir Conti Attending Provider: Bashir Conti Primary Care Provider: Talon Constantino Hospital Course Hospital Course: PT was admitted to the hospital for the below reasons. Pt was started on abx (cefepime/doxy) and improved in regards to his symptoms. While he was inpatient, pt had a arriaga placed but then had it removed prior to dc and was able to urinate without difficulties. I will d/c the pt with doxycycline for 3 more days as well as a prednisone taper. 69 yo M with history of autoimmune necrotizing myositis who has been tapering his prednisone and recently stopped his CellCept who presented to the emergency room with profound general weakness, fevers, vomiting, and diarrhea that started yesterday morning. He woke yesterday and felt like he could barely get out of bed. He developed a cough, fever to 101 and chills. He had some coffee and vomited that up. He continued to take fluids but vomited 3-4 times and started having loose stools. Has had about 6 loose stools just since last night. He hasn't had appetite and hasn't had solid foods since yesterday. He was coughing up some sputum, no blood. He has not had headache or neck pain. He has not had chest pain or abdominal pain. He does have issues with slow urine flow and hasn 't urinated yet today, but hasn't had dysuria or hematuria previously. He has not had focal joint pain or swelling or any rashes or open sores. He has chronic numbness and some weakness in his feet related to his spinal stenosis, with no recent change. He was at a youth basketball game in a gym on Thursday before this happened, but felt fine. He did visit his 102 yo aunt at rehab where she is recovering from influenza and pneumonia. He was also at [facility] on Thursday for a visit for his spinal stenosis. He had tapered his steroids down to 5mg about a week ago from 10mg. He wanted to get off of them. He stopped his Cellcept in preparation for upcome back surgery on Thursday, the day before this started. He states he got very sick when tapering his steroids once previously years ago and was diagnosed with PJP pneumonia and was transfered to [facility]. (1) Septic shock: Status: Acute Assessment and plan: Classic septic shock with elevated HR, RR, temperature, and hypotension despite 30ml/kg fluids. Source is pneumonia Started on norepinephrine drip. On cefepime and vancomycin, continue with renal dosing. Once he has stabilized, we could consider MRSA swab and stop vanco if negative. blood cultures pending. We also need u/a, ordered. Viral swabs negative Diarrhea but not inflammatory, no recent abx, but get c diff if diarrhea pers ists He is at high risk of adrenal insufficiency with chronic prednisone and recent taper, given stress dose steroids POCUS c/w normal LV function, no other clear cardiac cause for shock. (2) Multifocal pneumonia: Status: Acute Assessment and plan: On CXR, on CT disease is most notable in that superior left lower lobe. Abx as above. (3) Autoimmune necrotizing myopathy: Status: Acute Assessment and plan: Recent taper of medications, but he does not seem to have relapse of his myositis symptoms. CPK is up but mildly so He is on steroids, continue off cellcept (4) Benign prostatic hyperplasia: Status: Acute Assessment and plan: With elevated PSA but negative biopsies. On finasteride and tamsulosin, will continue to avoid retention. He declines arriaga for now, follow bladder scans. (5) Acute respiratory failure with hypoxia: Status: Acute Assessment and plan: Secondary to pneumonia with septic shock. Stable on 4 liters O2 via NC. (6) Chronic steroid use: Status: Acute Assessment and plan: As above on hydrocortisone for possible adrenal insuffiency. Cortisone pending. (7) Acute kidney injury: Status: Acute Assessment and plan: Assocated with sepsis. He is also at risk for obstruction. Fluids and monitor bladder scans. Mild CPK elevation not likely high enough to contribute, but we do need u/a. Strict I/Os. (8) Hypomagnesemia: Status: Acute Assessment and plan: s/p 2g, follow in AM (9) Lactic acidosis: Status: Acute Assessment and plan: a/w sepsis, follow (10) DVT prophylaxis: Status: Acute Assessment and plan: High risk with h/o DVT, enoxaparin Home Meds and New Rx's Prescriptions: New doxycycline hyclate 100 mg capsule 100 mg PO DAILY Qty: 7 0RF prednisone 10 mg tablet 10 mg PO DAILY Qty: 7 0RF Continued aspirin 81 mg tablet,delayed release (DR/EC) 81 mg PO DAILY finasteride 5 mg tablet 5 mg PO DAILY Qty: 90 4RF tamsulosin 0.4 mg capsule 0.4 mg PO DAILY Qty: 180 3RF multivitamin Tablet 1 tab PO DAILY Discontinued prednisone 5 mg tablet 5 mg PO DAILY PRN (Reason: myalgia) Qty: 30 0RF Discharge Instructions Activity:: Activity as Tolerated Equipment/Supplies:: No Equipment Needed Diet:: As Tolerated Discharge Orders Discharge Orders: Discharge Order (Routine); Ordered 12/29/24 Ordered By: Raymond Garcia DS: Summary Time Spent with Patient providing and/or coordinating discharge services: Greater than 30 minutes Status at Discharge Functional status at discharge: independent ambulation Overall status at discharge: patient is back to baseline Mental Status: mental status grossly normal Speech and Movement: speech and movement normal Mood: congruent mood Affect: normal affect Quality:SDOH Health Related Social Needs: No Data to Display Exam Psych Mental Status: mental status grossly normal Speech and Movement: speech and movement normal Mood: congruent mood Affect: normal affect DS: Data Vitals/I&O Vitals and I&O: Vital Signs Temperature 36.6 C 12/29/24 11:20 Temperature Source Temporal Artery Scan 12/29/24 11:20 Pulse 56 L 12/29/24 11:20 Pulse 69 12/28/24 15:01 Respiratory Rate 20 12/29/24 11:20 Respiratory Effort Short of Breath, Labored 12/26/24 16:20 Respiratory Depth Shallow 12/26/24 16:20 Respiratory Pattern Tachypnea 12/26/24 16:20 Blood Pressure 118/78 12/29/24 11:20 Blood Pressure Mean 93 12/28/24 15:00 Blood Pressure Position Sitting 12/26/24 09:57 Pulse Oximetry 96 12/29/24 11:20 Oxygen Delivery Method Room Air 12/29/24 11:20 Oxygen Flow Rate 0 12/29/24 11:20 Pain Level 0 12/29/24 11:20 Comment RN notified 12/29/24 07:10 Intake & Output 12/28/24 12/29/24 12/29/24 23:59 11:59 23:59 Intake Total 400 / 1860 400 / 400 Output Total 200 / 1300 1799 / 1974 Balance 200 / 560 -1400 / -1575 -175 / -1575 Weight 110.3 kg Intake: IV 400 / 850 400 / 400 Output: Urine 200 / 1300 1799 Other: Urine Color Yellow Pale Yellow Urine Appearance Clear Clear Clear Urine Odor None Data Completed and Pending Labs on day of discharge: Labs from last 24 hours 12/29/24 06:17 WBC 15.50 H RBC 4.13 L Hgb 12.2 L Hct 36.4 L MCV 88 MCH 29.5 MCHC 33.5 RDW 13.6 Plt Count 127 L MPV 10.1 Immature Gran % 0.6 Neutrophils % 86.3 Lymphocytes % 6.2 Monocytes % 6.7 Eosinophils % 0.0 Basophils % 0.2 Nucleated RBC % 0.1 Absolute Neutrophils 13.38 H Absolute Lymphocytes 0.96 L Absolute Monocytes 1.04 H Absolute Eosinophils 0.00 Absolute Basophils 0.03 Sodium 141 Potassium 3.7 Chloride 108 H Carbon Dioxide 25.2 Anion Gap 7.8 BUN 34 H Creatinine 1.0 Est GFR (CKD-EPI 2020) 81.47 Glucose 147 H Hemoglobin A1c 6.4 H Calcium 9.4 Preliminary micro results at discharge 12/26/24 10:45 Blood Culture - Preliminary Blood NO GROWTH 48 HOURS 12/26/24 10:35 Blood Culture - Preliminary Blood NO GROWTH 48 HOURS PFSH All Active Problems (Updated 12/29/24 @ 12:46 by Raymond Garcia MD) Abnormal liver enzymes (Acute) Lactic acidosis (Acute) Hypomagnesemia (Acute) Acute kidney injury (Acute) DVT prophylaxis (Acute) Septic shock (Acute) Bilateral thumb pain (Acute) Low back pain (Acute) Weight loss (Acute) Abdominal pain (Acute) Primary osteoarthritis of left hip (Acute) Left groin pain (Acute) History of total right hip replacement (Acute 03/04/22) Venous insufficiency of left leg (Acute 12/23/16) Prediabetes (Acute 12/23/16) Benign prostatic hyperplasia (Acute 12/23/16) with elevated PSA TRUS biopsies negative X 2 Myositis (Acute ~11/25/18) 11/25/18 [facility] Phlebitis after infusion (Acute) Necrotizing myopathy (Acute) 05/11/19 [facility] Pain of left calf (Acute) Well adult (Acute) Elevated PSA (Acute) Spinal stenosis of lumbar region with neurogenic claudication (Acute ~01/30/20) [facility] Autoimmune necrotizing myopathy (Acute ~01/30/20) [facility] Chronic steroid use (Acute) Acute respiratory failure with hypoxia (Acute) Steroid-induced hyperglycemia (Acute) Multifocal pneumonia (Acute) Sepsis (Acute) Edema (Acute) Herpes zoster (Acute) DVT (deep venous thrombosis) (Chronic) Pain of right hip (Acute) Preventative health care (Acute) Medical History (Updated 12/29/24 @ 12:46 by Raymond Garcia MD) Obesity, class 1 Surgical History History of tonsillectomy History of colonoscopy Status post right inguinal hernia repair Family History Father , age 71 Pancreatic cancer Mother No problems noted. Sister No problems noted. Maternal Grandfather , 94 Heart disease Paternal Grandfather , 54 Leukemia Maternal Grandmother , 101 No problems noted. Paternal Grandmother , 93 No problems noted. Son No problems noted. Son No problems noted. Daughter No problems noted. Social History (Updated 12/26/24 @ 15:02 by Bashir Conti) Smoking/Tobacco Use Status: Former Tobacco Use tobacco type: cigarettes Quit Date: 10/14/16 Tobacco: How many years used: 40 Quit status: quit date established Second Hand Exposure: Yes Smoking risk assessment performed?: Yes Alcohol Intake: current Alcohol Intake frequency: a few times a week Alcohol type: beer Drug use: Never Substance use type: does not use Counseling given: No Caregiver/Support person: Yes Household members: spouse Housing: house Communication Needs: None Do you need help understanding health information?: Rarely Pets and animals: No Sexually active: Yes Do you think of yourself as: straight/heterosexual Current gender identity: male What is your relationship status?: How often do you talk on the phone with friends or family?: three or more times per week How often do you get together with friends or relatives?: three or more times per week How often do you attend buddhism or oriental orthodox services?: decline to answer Do you belong to any clubs or organized social groups?: no Panel score (0-1 are the most socially isolated patients): 2 What type of physical activity do you participate in: other Details: PT Duration: 60-90 minutes/day Frequency: daily Harmony/Jewish: Scientologist Special harmony needs: No Seatbelt use: always Helmet use: Yes Helmet use: always Drive intox or ride w/intox route sales delivery driver: No Do you feel safe at home: Yes Do you feel safe in your relationship?: Yes Additional Social history: 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 Lives with Debora, no pets Time Spent with Patient Time Spent with Patient: 45-69 minutes Time was spent: preparing to see the patient(eg.review tests), obtaining and/or reviewing separately otained hiistory, ordering medications,tests, procedures, referring, communicating with other health direct care professional, indepentently interpreting results, counseling the patient and care coordination
--- NOTE | 2024-12-29 13:13 | PDOC.CMDIS ---
Date of service: 12/29/24 Time of Service: 13:13 LACE Index Scoring Tool Questions: Length of Stay (in days): 3 Was the patient admitted via the E.D.?: Yes E.D. Visits: 1 Answers: Total Score: 7 Risk of Readmission: Low Risk Care Management Discharge Plan Reason for Hospitalization: Septic Shock, pneumonia Discharge Plan: Discharge home via private vehicle with . Follow up with community providers and discharge plan of care as instructed. No new services are ordered prior to discharge. Outpatient PT is recommended. Patient/Family Education Needs: Review discharge instructions, limitations, medications and plan to follow up after discharge. Discuss ask me three. SDOH Health Related Social Needs: No Data to Display
--- NOTE | 2024-12-29 14:19 | NUR.NOTE ---
patient left via w/c to POV with spouse at 1413, all belongings with patient, d/c paperwork in hand, RIJ removal site C/D/I without bleeding. PIV removed. Nursing Note:
== END 2024-12-29 14:13 | disposition home or self-care (01) | DRG 871 ==
LOC: ER 15:20 → ICU 16:18 → MS 12-28 15:12
PROVIDERS: Admitting Provider Family Medicine; Emergency Provider Emergency Medicine; PCP Family Medicine; Responsible Provider Family Medicine; Visit Provider Family Medicine
DX: A41.9 Sepsis, unspecified organism (principal); J18.9 Pneumonia, unspecified organism; R65.21 Severe sepsis with septic shock; J96.01 Acute respiratory failure with hypoxia; N17.9 Acute kidney failure, unspecified; E87.20 Acidosis, unspecified; G72.49 Other inflammatory and immune myopathies, not elsewhere classified; N40.0 Benign prostatic hyperplasia without lower urinary tract symptoms; E83.42 Hypomagnesemia; E66.811 Obesity, class 1; Z86.718 Personal history of other venous thrombosis and embolism; Z96.641 Presence of right artificial hip joint; I87.8 Other specified disorders of veins; R73.03 Prediabetes; Z79.52 Long term (current) use of systemic steroids; M48.062 Spinal stenosis, lumbar region with neurogenic claudication; R19.7 Diarrhea, unspecified; R74.8 Abnormal levels of other serum enzymes; Z68.33 Body mass index [BMI] 33.0-33.9, adult
CPT/HCPCS: 00123; 36415; 36556; 36592; 71250; 80048; 80053; 82533; 82550; 82805; 84145; 87040; 87637; 87641; 93005; 93308; 94640; 96361; 96365; 96366; 96367; 96375; 96376; 97162; 97530; 99291; J1650; 71046; 80202; 81003; 81015; 83036; 83605; 83735; 83880; 84484; 85025; 93010; 94760; 99223; 99233; 99239; J0692; J1720; J2004; J2470; J2919; J3372; J3475; J7512; J7620

== ENCOUNTER 2025-01-16 09:20 | Outpatient (CLI) | payer MEDICARE, SELFPAY ==
[2025-01-16 09:36] LABS: HCT 42.8 % (40.0-50.0); HGB 14.3 g/dL (13.5-17.5); MCH 29.9 pg (27.0-33.0); MCHC 33.4 % (32.0-36.0); MCV 89 fL (80-95); MPV 8.9 fL (8.0-11.0); Platelet Count 184 10^3/uL (130-400); RBC 4.79 10^6/uL (4.36-5.78); RDW 12.7 % (11.8-14.1); RDW-SD 41.6 fL; WBC 5.22 10^3/uL (4.4-10.8)
[2025-01-16 09:48] LABS: Prothrombin Time 10.2 sec (9.1-11.1)
[2025-01-16 10:05] LABS: Anion Gap 6.8 mmol/L (3-11); BUN 18 mg/dL (7-18); CO2 27.2 mmol/L (21.0-32.0); Calcium 9.6 mg/dL (8.5-10.1); Chloride 106 mmol/L (98-107); Estimated GFR 81.47 (mL/min/1.73m2); Glucose 158 mg/dL (74-106); Sodium 140 mmol/L (136-145)
== END 2025-01-16 09:21 | disposition home or self-care (01) ==
LOC: LBO 09:20
PROVIDERS: PCP Family Medicine; Visit Provider Family Medicine
DX: R53.83 Other fatigue (principal); Z79.01 Long term (current) use of anticoagulants; E87.1 Hypo-osmolality and hyponatremia
CPT/HCPCS: 36415; 80048; 85027; 85610

== ENCOUNTER 2025-02-07 08:55 | Outpatient (CLI) | payer MEDICARE, SELFPAY ==
[2025-02-07 09:34] LABS: Abs Immature Grans 0.01 10^3/uL (0.0-0.06); Absolute Basophil Count 0.08 10^3/uL (0.0-0.2); Absolute Eosinophil Count 0.24 10^3/uL (0.0-0.7); Absolute Lymphocyte Count 1.33 10^3/uL (1.2-3.4); Absolute Monocyte Count 0.63 10^3/uL (0.1-0.8); Absolute Neutrophil Count 2.88 10^3/uL (1.2-6.7); Basophils % 1.5 %; Eosinophils % 4.6 %; HCT 41.2 % (40.0-50.0); Immature Grans % 0.2 %; Lymphocytes % 25.7 %; MCH 29.5 pg (27.0-33.0); MCV 87 fL (80-95); MPV 9.3 fL (8.0-11.0); Monocytes % 12.2 %; Neutrophils % 55.8 %; Platelet Count 181 10^3/uL (130-400); RBC 4.75 10^6/uL (4.36-5.78); RDW 12.8 % (11.8-14.1); RDW-SD 40.5 fL; WBC 5.17 10^3/uL (4.4-10.8)
[2025-02-07 10:00] LABS: ALT 33 U/L (16-63); AST 32 U/L (15-37); Albumin 3.5 g/dL (3.4-5.0); Alkaline Phosphatase 57 U/L (46-116); Anion Gap 7.2 mmol/L (3-11); BUN 16 mg/dL (7-18); Bilirubin, Total 0.5 mg/dL (0.2-1.0); CO2 25.8 mmol/L (21.0-32.0); Calcium 9.3 mg/dL (8.5-10.1); Chloride 107 mmol/L (98-107); Creatine Kinase 302 U/L (39-308); Estimated GFR 81.47 (mL/min/1.73m2); Glucose 160 mg/dL (74-106); Sodium 140 mmol/L (136-145); Total Protein 6.7 g/dL (6.4-8.2)
[2025-02-07 19:29] LABS: PSA, Diagnostic 11.1 ng/mL (<=4.5)
[2025-02-09 10:11] LABS: Aldolase 5.1 U/L (<7.7)
== END 2025-02-07 08:56 | disposition home or self-care (01) ==
LOC: LBO 08:56
PROVIDERS: Urology; PCP Family Medicine; Visit Provider Internal Medicine Rheumatology
DX: R97.20 Elevated prostate specific antigen [PSA] (principal); G72.49 Other inflammatory and immune myopathies, not elsewhere classified; Z79.899 Other long term (current) drug therapy
CPT/HCPCS: 36415; 80053; 82550; 82085; 84153; 85025

== ENCOUNTER → 2025-02-17 07:46 | Outpatient (BNVA) | payer MEDICARE, SELFPAY | PROVIDERS: PCP Family Medicine; Visit Provider Urology | DX: R97.20 Elevated prostate specific antigen [PSA] (principal); Z79.01 Long term (current) use of anticoagulants; R35.1 Nocturia | CPT/HCPCS: 99214 ==

== ENCOUNTER 2025-03-09 10:55 | Outpatient (CLI) | payer MEDICARE, SELFPAY ==
--- NOTE | 2025-03-09 10:35 | DI.RAD_ITS ---
Exam(s) XR HIP LT COMPLETE AP PELVIS EXAM: XR HIP LT COMPLETE AP PELVIS CLINICAL HISTORY: LEFT HIP PAIN. TECHNIQUE: 2D digital imaging was performed. Two views. COMPARISON: CR XR HIP LT COMPLETE AP PELVIS from 01/08/2023 CR XR HIP RT AP LAT ONLY from 03/12/2023 FINDINGS: BONES: No acute fracture is present. No bony destructive lesion is seen. The right hip prosthesis is unremarkable. JOINTS: No dislocation present. There is mild narrowing of the left hip joint space and mild periarticular spurring. The SI joints and pubic symphysis are intact. SOFT TISSUE: Surgical clips over the low pelvis. IMPRESSION: Mild degenerative changes of the left hip. Unremarkable right hip prosthesis. DATA REPOSITORY: RADIATION DOSE DELIVERED:
== END 2025-03-09 10:56 | disposition home or self-care (01) ==
LOC: DIORS 10:55
PROVIDERS: PCP Family Medicine; Referring Provider Family Medicine; Visit Provider Physician Assistant
DX: M25.552 Pain in left hip (principal); M16.12 Unilateral primary osteoarthritis, left hip; I82.402 Acute embolism and thrombosis of unspecified deep veins of left lower extremity; Z79.01 Long term (current) use of anticoagulants
CPT/HCPCS: 99214; 73502

== ENCOUNTER 2025-05-30 09:12 | Outpatient (CLI) | payer MEDICARE, SELFPAY ==
[2025-05-30 22:24] LABS: PSA, Diagnostic 10.5 ng/mL (<=4.5)
== END 2025-05-30 09:13 | disposition home or self-care (01) ==
LOC: LBO 09:12
PROVIDERS: PCP Family Medicine; Visit Provider Urology
DX: R97.20 Elevated prostate specific antigen [PSA] (principal)
CPT/HCPCS: 36415; 84153

== ENCOUNTER → 2025-06-06 08:00 | Outpatient (BNVA) | payer MEDICARE, SELFPAY | PROVIDERS: PCP Family Medicine; Referring Provider Family Medicine; Visit Provider Urology | DX: N40.0 Benign prostatic hyperplasia without lower urinary tract symptoms (principal); R97.20 Elevated prostate specific antigen [PSA]; Z79.01 Long term (current) use of anticoagulants | CPT/HCPCS: 99213 ==

== ENCOUNTER 2025-07-19 12:21 | Outpatient (CLI) | payer MEDICARE, SELFPAY ==
[2025-07-19 10:13] LABS: Abs Immature Grans 0.01 10^3/uL (0.0-0.06); HCT 44.8 % (40.0-50.0); HGB 15.6 g/dL (13.5-17.5); Immature Grans % 0.2 %; MCH 30.6 pg (27.0-33.0); MCHC 34.8 % (32.0-36.0); MCV 88 fL (80-95); MPV 8.9 fL (8.0-11.0); Platelet Count 200 10^3/uL (130-400); RBC 5.10 10^6/uL (4.36-5.78); RDW 12.8 % (11.8-14.1); RDW-SD 41.4 fL; WBC 5.46 10^3/uL (4.4-10.8)
[2025-07-19 10:33] LABS: ALT 36 U/L (16-63); AST 30 U/L (15-37); Albumin 3.9 g/dL (3.4-5.0); Alkaline Phosphatase 48 U/L (46-116); Anion Gap 8.1 mmol/L (3-11); BUN 14 mg/dL (7-18); Bilirubin, Total 0.6 mg/dL (0.2-1.0); CO2 27.9 mmol/L (21.0-32.0); Calcium 9.4 mg/dL (8.5-10.1); Chloride 105 mmol/L (98-107); Creatine Kinase 280 U/L (39-308); Glucose 117 mg/dL (74-106); Potassium 4.5 mmol/L (3.5-5.1); Sodium 141 mmol/L (136-145); Total Protein 7.5 g/dL (6.4-8.2)
== END 2025-07-19 12:22 | disposition home or self-care (01) ==
LOC: LBO 12:27
PROVIDERS: PCP Family Medicine; Visit Provider Internal Medicine Rheumatology
DX: R76.89 Other specified abnormal immunological findings in serum (principal)
CPT/HCPCS: 36415; 80053; 82550; 82085; 85025

== ENCOUNTER → 2025-08-24 10:54 | Outpatient (BNVA) | payer MEDICARE, SELFPAY | PROVIDERS: PCP Family Medicine; Referring Provider Family Medicine; Visit Provider Physician Assistant | DX: M16.12 Unilateral primary osteoarthritis, left hip (principal) | CPT/HCPCS: 20611; J1010 ==

== ENCOUNTER 2025-08-31 09:06 | Outpatient (CLI) | payer MEDICARE, SELFPAY ==
[2025-08-31 18:39] LABS: PSA, Diagnostic 12.4 ng/mL (<=4.5)
== END 2025-08-31 09:07 | disposition home or self-care (01) ==
LOC: LBO 09:07
PROVIDERS: PCP Family Medicine; Visit Provider Urology
DX: R97.20 Elevated prostate specific antigen [PSA] (principal)
CPT/HCPCS: 36415; 84153

== ENCOUNTER → 2025-09-12 07:57 | Outpatient (BNVA) | payer MEDICARE, SELFPAY | PROVIDERS: PCP Family Medicine; Referring Provider Family Medicine; Visit Provider Urology | DX: R35.1 Nocturia (principal); R97.20 Elevated prostate specific antigen [PSA] | CPT/HCPCS: 99214 ==